=== PATIENT | male | born 1945 | race Caucasian/White ===

== ENCOUNTER 2021-09-19 12:13 | Outpatient (CLI) | payer MEDICARE, OTHER, SELFPAY ==
--- NOTE | ~2021-09-19 | XR_ITS ---
EXAMINATION: XR lumbar spine 2-3V DATE: 09/19/2021 12:49 INDICATION: Right paraspinal pain. Right flank pain. TECHNIQUE: 3 views of lumbar spine were obtained. COMPARISON: Lumbar spine radiographs 03/27/2007 FINDINGS: There is 17 degrees levoscoliosis of lumbar spine. There are chronic bilateral L5 pars defe cts. There is 10 mm anterolisthesis of L5 on S1. There is 4 mm retrolisthesis of L3 on L4 and L1 on L 2. There is mild chronic anterior wedging of T11 and T12 vertebral bodies. There is severely decrease d disc height at T12-L1 and L1-L2, moderately decreased disc height at L2-L3, severely decreased disc height at L3-L4, moderately decreased disc height at L4-L5, and severely decreased disc height at L5 -S1 with endplate remodeling. There is multilevel severe facet joint osteoarthritis. IMPRESSION: 1. Severe lumbar spondylosis. 2. Chronic bilateral L5 pars defects with grade 2 anterolisthesis of L5 on S1. 3. Lumbar dextroscoliosis. Reviewed, dictated and finalized at location A. T THROWER
--- NOTE | ~2021-09-19 | XR_ITS ---
XR thoracic spine 3V 09/19/2021 12:49 Indication: Back pain Procedure: 3 views of the thoracic spine Comparison: No prior studies for comparison. Findings: There is moderate-severe multilevel thoracic spondylosis. No fracture or traumatic malalign ment. No paraspinal soft tissue abnormality. Surrounding osseous structures within normal limits. Impression: 1: Moderate-severe thoracic spondylosis. Reviewed, dictated and finalized at location A. ATIC READER Impression: 1: Moderate-severe thoracic spondylosis.
== END 2021-09-19 12:14 | disposition home or self-care (01) ==
LOC: CHSIMG 12:20
PROVIDERS: PCP Internal Medicine; Visit Provider Internal Medicine
DX: M54.9 Dorsalgia, unspecified (principal); R10.9 Unspecified abdominal pain
CPT/HCPCS: 72072; 72100

== ENCOUNTER 2021-10-25 15:09 | Outpatient (CLI) | payer MEDICARE, SELFPAY ==
[2021-10-25 15:56] LABS: Influenza Control Valid (Valid)
[2021-10-25 15:57] LABS: SARS-CoV-2 Ag Positive (Negative)
== END 2021-10-25 15:10 | disposition home or self-care (01) ==
LOC: CHSLAB 15:14
PROVIDERS: PCP Internal Medicine; Visit Provider Internal Medicine
DX: U07.1 COVID-19 (principal); J06.9 Acute upper respiratory infection, unspecified
CPT/HCPCS: 87426; 87804; C9803

== ENCOUNTER 2023-01-04 13:28 | Outpatient (CLI) | payer MEDICARE, OTHER, SELFPAY ==
--- NOTE | ~2023-01-04 | CT_ITS ---
EXAMINATION: CT shoulder LT wo con DATE: 01/04/2023 13:43 INDICATION: Left shoulder pain. Preop. TECHNIQUE: Computed tomography (CT) of the left shoulder was performed without intravenous contrast. Automated exposure control and iterative reconstruction technique were employed. The dose-length prod uct was 521.10 mGy-cm. COMPARISON: Left shoulder radiographs 01/01/2023, chest CT 09/20/2016 FINDINGS: There is mild left cervical and left axillary lymphadenopathy. For example, a left axillary node measures 2.6 x 1.9 cm. There is superior subluxation of humeral head with respect to glenoid wi th narrowing of the subacromial space, consistent with rotator cuff tear. No fracture. There is advan emily left glenohumeral joint osteoarthritis including bone volume loss of the glenoid. There is severe acromioclavicular joint osteoarthritis. IMPRESSION: 1. Advanced left glenohumeral joint osteoarthritis. 2. Left rotator cuff tear. 3. Left cervical and axillary lymphadenopathy, worsened from 09/20/2016, consistent with chronic lymp hocytic leukemia. Reviewed, dictated and finalized at location A. IMPRESSION: 1. Advanced left glenohumeral joint osteoarthritis. 2. Left rotator cuff tear. 3. Left cervical and axillary lymphadenopathy, worsened from 09/20/2016, consis tent with chronic lymphocytic leukemia.
== END 2023-01-04 13:29 | disposition home or self-care (01) ==
PROVIDERS: PCP Internal Medicine; Visit Provider Orthopaedic Surgery
DX: M19.012 Primary osteoarthritis, left shoulder (principal); Z01.818 Encounter for other preprocedural examination; M75.102 Unspecified rotator cuff tear or rupture of left shoulder, not specified as traumatic
CPT/HCPCS: 73200

== ENCOUNTER 2023-01-16 07:36 | Outpatient (CLI) | payer MEDICARE, OTHER, SELFPAY ==
--- NOTE | 2023-01-16 08:20 | ECG_ITS ---
Measurements Intervals [place] Rate: 62 P: 22 RI: 236 QRS: -38 QRSD: 104 T: 9 QT: 416 QTc: 423 Interpretive Statements SINUS RHYTHM WITH FIRST DEGREE AV BLOCK LEFT AXIS DEVIATION VOLTAGE CRITERIA FOR LVH CANNOT RULE OUT ANTERIOR MYOCARDIAL INFARCTION, OF INDETERMINATE AGE ABNORMAL ECG NO PREVIOUS ECG AVAILABLE FOR COMPARISON Electronically Signed On 01-16-2023 16:20:47 CDT by Kalpesh Victoria M.D.
[2023-01-16 09:08] LABS: Basophils Absolute Auto 0.1 K/mm3 (0.0-0.1); Basophils Percent Auto 0.3 % (0.2-1.2); Eosinophils Absolute Auto 0.3 K/mm3 (0-0.3); Eosinophils Percent Auto 0.7 % (0-4.4); Hematocrit 40.3 % (42.0-52.0); Hemoglobin 12.7 g/dL (14.0-18.0); Immature Granulocyte Absolute 0.06 K/mm3 (0.00-0.031); Immature Granulocyte Percent A 0.1 % (0-0.5); Immature Platelet Fraction Pct 3.2 % (0.9-11.2); Lymphocytes Absolute Auto 36.56 K/mm3 (0.9-3.2); Lymphocytes Percent Auto 89.2 % (18.3-44.2); Mean Corpuscular HGB Conc 31.5 g/dl (32-36); Mean Corpuscular Hemoglobin 28.5 pg (26-34); Mean Corpuscular Volume 90.6 fl (80-100); Mean Platelet Volume 10.3 fl (7.4-10.4); Monocytes Absolute Auto 0.6 K/mm3 (0.1-0.6); Monocytes Percent Auto 1.5 % (2.6-8.5); Neutrophils Absolute Auto 3.4 K/mm3 (1.3-6.7); Neutrophils Percent Auto 8.2 % (45.5-73.1); Platelet Count Result 100 k/mm3 (150-375); Red Blood Count 4.45 M/mm3 (4.6-6.20); Red Cell Distribution Width 14.6 % (11.5-14.5)
[2023-01-16 09:17] LABS: Anion Gap 8 mmol/L (8-16); Blood Urea Nitrogen 28 mg/dL (9-20); Calcium 9.4 mg/dL (8.4-10.2); Carbon Dioxide 30 mmol/L (22-30); Chloride 104 mmol/L (98-107); Estimated Glomerular Filt Rate 59; Glucose 119 mg/dL (65-110); Potassium 3.4 mmol/L (3.4-5.0); Sodium 142 mmol/L (137-145)
[2023-01-16 09:30] LABS: Ovalocytes 1+ (NORMAL); Platelet Estimate Decreased (Adequate); Schistocytes None Seen (NORMAL); Smudge Cells MODERATE
== END 2023-01-16 07:37 | disposition home or self-care (01) ==
LOC: ANHSURGERY 07:40
PROVIDERS: Anesthesiology; PCP Internal Medicine; Visit Provider Orthopaedic Surgery
DX: M19.012 Primary osteoarthritis, left shoulder (principal); I10 Essential (primary) hypertension; Z79.899 Other long term (current) drug therapy; Z01.818 Encounter for other preprocedural examination; I45.10 Unspecified right bundle-branch block
CPT/HCPCS: 36415; 80048; 85025; 85055; 87081; 93005

== ENCOUNTER 2023-02-13 01:14 | Day surgery (SDC) | payer MEDICARE, OTHER, SELFPAY ==
--- NOTE | 2023-01-16 07:35 | PC.NURSE ---
PRE-OP INSTRUCTIONS, PLEASE READ CAREFULLY Report to the Outpatient Waiting Room, entrance under the green pavilion located off [facility], at time _0630_ on date _02/13/23_. Planned Procedure Time: _0830_. PACK A SMALL OVERNIGHT BAG AND LEAVE IN THE CAR Time changes happen often and if your time is changed the preop area will call you the afternoon before. - You and your visitor will be asked to self-screen and do not enter if you have any COVID symptoms. - A mask is optional within the hospital at this time. -VISITING HOURS 8AM-8PM Patients may have clear liquids (water, carbonated beverages, clear teas, apple juice) until 3 hours prior to surgery (0530 AM) with a maximum of 20 ounces. - No food from midnight until time of surgery Take the following medications with a SIP of water the morning of surgery: _TYLENOL IF NEEDED_ DO NOT STOP ANY OF YOUR OTHER PRESCRIPTION MEDICATIONS PRIOR TO SURGERY ?EXCEPT THE FOLLOWING Medications to discontinue per DR. REES - _ASPIRIN, BIOFLEX 7 DAYS PRIOR TO SURGERY, Date to take last dose 02/05/23_ Medications to discontinue per ANESTHESIA - _NEURIVA 3 DAYS PRIOR TO SURGERY, Date to take last dose 02/09/23_ Please no make-up, nail citizen of [place], hairspray, perfume, deodorant, or body powder the day of surgery. No jewelry (including any body piercings) or valuables the day of surgery, leave them at home. Please take a shower or bath the night before, or the morning of, surgery with an antibacterial soap. Wear comfortable, loose fitting clothing. - Jewelry must be removed prior to entering the operating room. Rings and piercings that are not removed may be cut off. - The hospital will not accept responsibility for valuables. - Please leave all valuables, including medications, at home the day of surgery. If you are going home after surgery, a licensed tractor trailer moving van driver must drive you home. - NO public transportation without another adult if you receive anesthesia. - We recommend that an adult stay with you for 24 hours following discharge. - We also recommend that you do not drive, make important decision, drink alcoholic beverages, or take any drugs that were not prescribed by your health care provider for at least 24 hours after your discharge time. Follow any additional instructions given to you from your surgeon. If you or anyone in your household have experienced Covid symptoms in the past week, please notify your surgeon or the nurse liaison at the phone number below for possible testing. Instructions given to _PATIENT_and asked if any additional questions and then verbalized understanding. Patient advised to call surgeon office or pre surgery nurse liaison [phone] if any additional questions.
[2023-01-16 08:02] VITALS: BP 156/84; PULSE 64; RESP 20; TEMP 36.8; O2SAT 97; BMI 29.9
--- NOTE | 2023-02-12 14:16 | WPDANESEPPF ---
Anes - Initial Pre Proc Eval Procedure: Operation Date: 02/13/23 08:30 Proposed Procedures p Left Reverse Total Shoulder Arthroplasty - Ted Zheng MD Date/Time: 02/12/23 14:16 Surgeon: Ted Zheng MD Pre Op Diagnosis: Prim O A Left Shoulder Patient Data Age: 78 Gender: M Height: 1.8 m Weight: 97.3 kg Last Vital Signs Temp 36.8 C 01/16/23 08:02 Pulse 64 01/16/23 08:02 Resp 20 01/16/23 08:02 BP 156/84 H 01/16/23 08:02 Pulse Ox 97 01/16/23 08:02 O2 Del Method Room Air 01/16/23 08:02 Allergies Allergy/AdvReac Type Severity Reaction Status Date / Time Penicillins Allergy Unknown Hives Verified 02/13/23 06:56 Home Medications Medication Instructions Recorded Confirmed Type cholecalciferol (vitamin D3) 25 25 mcg PO DAILY 01/01/23 02/06/23 History mcg/drop (1,000 unit/drop) oral drops finasteride 5 mg tablet 5 mg PO DAILY 01/01/23 02/06/23 History hydrochlorothiazide 25 mg tablet 25 mg PO DAILY 01/01/23 02/13/23 History losartan 100 mg tablet 100 mg PO DAILY 01/01/23 02/13/23 History nifedipine 30 mg tablet,extended 60 mg PO HS 01/01/23 02/06/23 History release rosuvastatin 20 mg tablet 20 mg PO DAILY 01/01/23 02/06/23 History vit 1 tablet PO DAILY 01/01/23 02/13/23 History [id number] 500 mg-50 mg-25 mg-40 mg tablet (Bioflex) acetaminophen 500 mg tablet 1,000 mg PO QID PRN Pain 01/16/23 02/06/23 History aspirin 325 mg tablet 325 mg PO HS 01/16/23 02/13/23 History coenzyme Q10 100 mg capsule 200 mg PO BID 01/16/23 02/06/23 History (CoQ-10) coffee extract 100 mg-phosphatidyl 1 cap PO DAILY 01/16/23 02/13/23 History serine 100 mg capsule (Neuriva Original) metoprolol succinate 25 mg 25 mg PO HS 01/16/23 02/13/23 History tablet,extended release 24 hr pantoprazole 40 mg tablet,delayed 40 mg PO DAILY 01/16/23 02/06/23 History release potassium chloride 10 mEq 10 meq PO DAILY 01/16/23 02/13/23 History tablet,extended release(part/cryst) (MaiklucilaMickey M) Patient hx anesthesia problems: none Family hx anesthesia problems: none Results Review: All pre-operative results and documents have been reviewed as part of the pre-operative evaluation. [facility] Past Medical History Medical History (Updated 02/12/23 @ 14:19 by Juan Pablo Flores MD) Aftercare following right shoulder joint replacement surgery Arthritis BPH (benign prostatic hyperplasia) Chronic GERD DVT (deep venous thrombosis) Hyperlipemia Hypertension Kidney stone Overweight (BMI 25.0-29.9) Surgical History Surgical History Presence of right artificial knee joint Family History Family History Mother Cerebrovascular accident Social History Social History Smoking packs per day: 1 Smoking cigarettes per day: 20.0 Years smoked: 4 Smoking pack-years: 4.00 Smoking status: Former smoker Tobacco type: cigarettes Second hand tobacco smoke exposure: No Smoking end date: 10/08/75 Alcohol intake: never Substance use: never Lack of Transportation: No Lack of Food: Never True Current Housing: I Have Housing Concerned About Future Housing: No Difficulty Paying Gas/Electric Bills: No Difficulty Paying for Meds: No Currently Unemployed: No Education: High School Diploma/GED Difficulty w/ Childcare or Family Care: No Living arrangements: with family Spiritual care concerns: No Anes - Eval Final PreProcedure Day of Procedure 02/12/23 14:16 Patient weight: obese Heart: regular rate and rhythm Lungs: clear to auscultation and normal air movement Airway: Mallampati scale class II Neurological: alert and oriented Last oral intake: >/= 8 hours ASA classification: III Emergent: no Anesthetic plan: proceed Anesthesia type and monitoring:
--- NOTE | 2023-02-12 14:21 | WPDANESPNB ---
Anes - Peripheral Nerve Block Date/Time: 02/12/23 14:21 I have discussed with the patient/family/POA the placement of a peripheral nerve block for post-operative pain management, including associated risks, benefits, complications, and side effects. Alternative methods of post-operative analgesia were detailed. Questions were solicited and answers provided to the satisfaction of the patient/family/POA. Time-Out: A pre-procedural Time-Out was completed immediately before starting the procedure and confirmed: Patient Identification, Site, Procedure, Patient Position and the Availability of Requisite Equipment. Clinical Indications: Acute post-operative pain management requested by the operative surgeon. Nerve Block Insertion Note Needle: 22 gauge, stimulating, insulated echogenic needle. Procedure start time:: 825 Procedure end time:: 830
[2023-02-13] VITALS (13 sets, daily range): BP systolic 139–167; BP diastolic 82–106; PULSE 64–94; RESP 10–20; TEMP 35.6–36.8; O2SAT 94–99; BMI 28.8
--- NOTE | ~2023-02-13 | XR_ITS ---
Left Shoulder Technique: AP and scapular Y views were obtained. Clinical History: Postoperative Findings: Patient is status post reverse total shoulder arthroplasty. No hardware complication is parvin dent. No acute fracture seen. Post operative changes noted in the surrounding soft tissues. Impression: Status post reverse left shoulder arthroplasty. Reviewed, dictated and finalized at [facility]. Impression: Status post reverse left shoulder arthroplasty.
[2023-02-13] MEDS: LACTATED RINGERS 1,000 ML 30 ML IV CONT ×2 (07:05→11:24)
--- NOTE | 2023-02-13 07:12 | WPDHPUPDATE1 ---
History and Physical Update Update Date/Time: 02/13/23 07:12 History and Physical has been reviewed, including an updated exam of the patient. There are NO changes in the patient's condition. Risks, benefits, and alternatives have been discussed and questions answered. Patient agrees to proceed with procedure.
[2023-02-13] MEDS: ACETAMINOPHEN 500 MG TABLET 1000 MG PO ×2 (07:15→18:26)
[2023-02-13] MEDS: TRANEXAMIC ACID 1,000MG/ISO100 1,000 MG/100 ML BAG 200 MG IVPB (07:59)
[2023-02-13] MEDS: ceFAZolin 2 GM/D5W 50 ML 2 GM/50 ML BAG IVPB ×2 (08:36→18:26)
[2023-02-13] MEDS: VANCOMYCIN HCL 1,000 MG VIAL 1000 MG TOPICAL (09:42)
[2023-02-13] MEDS: HYDROGEN PEROXIDE 3% SOLN(*SP) 473 ML BOTTLE 100 ML IRRIGATION (09:44)
--- NOTE | 2023-02-13 11:27 | W.PM.PROC2 ---
Procedure Note - Detailed Date of Procedure 02/13/23 Pre-op Diagnosis Prim O A Left Shoulder Post-op Diagnosis Same Procedure Performed Reverse total shoulder arthroplasty, left. Surgeon Ted Zheng MD Gynecologist Roseann Montanez PA-C Anesthesia General and Regional (Interscalene block.) Indications Advanced glenohumeral arthritis with significant contracture. Significant glenoid wear posterior and some superior. Findings Excellent bone quality. Significant contracture requiring capsule excision. Subscapularis repaired. 10 degree augment placed at the base plate at the 1:30 position. Description of Procedure The patient was given an interscalene block in the preoperative area. Preoperative antibiotics were given. The patient was transferred to the operating room and a general anesthetic was administered. The beach chair position was used at 45 degrees. All bony prominences were padded. The head was carefully stabilized on the Replaced by [facility] head kiln operator. A sterile prep and drape was performed in the usual manner with ChloraPrep. A longitudinal incision was created at the anterior shoulder just lateral to the deltopectoral interval. Hydrogen peroxide was placed on the incision and then rinsed after one minute. Careful dissection was performed to expose the interval and protect the cephalic vein. The vein was retracted medially. The upper border of the pectoralis was released. Anterior circumflex vessel branches were suture ligated. The biceps was tenodesed. A subscapularis tenotomy was performed. The inferior capsule was released, exposing the humeral head. Osteophytes were removed. Care was taken to stay on bone to protect the axillary nerve. The anatomic head cut was taken with the oscillating saw. The guide pin was placed, central drilling performed, and the broach trial inserted. The neck anteversion and inclination were carefully assessed. The cut protector was placed, and attention was turned to the glenoid. Retractors were placed. Releases were carried out for exposure. The subscapularis was mobilized, the inferior capsule and long head of triceps released, and the superior and middle glenohumeral ligaments released as well. Labral tissue was resected as needed. The sizing template was used to assess the baseplate position low on the glenoid. A guide pin was placed. Minimal reaming was used to accomplish a flat surface without violating the subchondral bone. Version was corrected according to preoperative templating. The boss was drilled, and the real component was impacted into position. Supplemental locking screws were placed centrally, superiorly, and inferiorly. The glenosphere was impacted into the taper. The proximal humerus was reamed for the inset component. The humeral components were trialed. The real humeral stem, tray, and insert were impacted into position. The shoulder was copiously irrigated periodically with pulsatile lavage. The shoulder was reduced and stability confirmed. 1 gram of Vancomycin powder was placed in the joint. The biceps tenodesis was incorporated with the pectoralis tendon repair. The deltopectoral space was reapproximated with number 1 Vicryl. The remaining tissue was closed with 0 Quill and 2-0 Quill running suture and steri-strips. A sterile silver occlusive dressing and shoulder immobilizer were placed. The patient was transferred to the recovery room. Physician catalog library assistant, Roseann Montanez PA-C, required for surgery; including patient positioning, draping, tissue retraction, maintaining instrument position, wound closure, and dressing placement. Implants Shoulder Innovations reverse TSA size 1 stem. +3 polyethylene insert. 10 degree augmented baseplate. 36+3 mm glenosphere. Estimated Blood Loss 100 Drains No Pathology None sent Complications No immediate complications Condition Stable Disposition PACU [facility] Billing Surgery - Charge Forward: Surgery Billing
[2023-02-13] MEDS: SENNA/DOCUSATE SODIUM TABLET 2 TAB PO (18:26)
--- NOTE | 2023-02-13 21:02 | ADMGEN ---
This patient, Wiliam Britt, was admitted to 3 [facility] Surg Room 315-02. Patient/family oriented to hospital policies and general routines including ID bracelet, bed and alarms, visiting hours, pain management, procedures, bathroom and other care routines, personal items, smoking policy, room service/diet, and visiting hours. Information on how to activate the Rapid Response Team has been discussed. Patient/Family are encouraged to report perceived risks to care and to ask questions if they do not understand what they are told or what they should do.
[2023-02-14 02:45] VITALS: BP 149/83; PULSE 66; RESP 18; TEMP 36.2; O2SAT 95
[2023-02-14 06:16] VITALS: PULSE 67
[2023-02-14] MEDS: ASPIRIN 325 MG TABLET PO (06:16)
[2023-02-14] MEDS: METOPROLOL SUCCINATE EXT REL 25 MG TABCR PO (06:16)
[2023-02-14] MEDS: ceFAZolin 2 GM/D5W 50 ML 2 GM/50 ML BAG IVPB ×2 (06:17→08:14)
[2023-02-14] MEDS: NIFEdipine 30 MG TAB.ER.24 60 MG PO (06:17)
[2023-02-14 06:45] VITALS: BP 142/85; PULSE 66; RESP 16; TEMP 36.2; O2SAT 95
[2023-02-14 07:01] LABS: Eosinophils Percent Auto 0.1 % (0-4.4); Hemoglobin 11.2 g/dL (14.0-18.0); Immature Granulocyte Absolute 0.11 K/mm3 (0.00-0.031); Immature Granulocyte Percent A 0.3 % (0-0.5); Immature Platelet Fraction Pct 3.1 % (0.9-11.2); Lymphocytes Absolute Auto 37.84 K/mm3 (0.9-3.2); Mean Corpuscular HGB Conc 31.1 g/dl (32-36); Mean Corpuscular Hemoglobin 27.7 pg (26-34); Mean Corpuscular Volume 89.1 fl (80-100); Mean Platelet Volume 10.3 fl (7.4-10.4); Monocytes Absolute Auto 0.8 K/mm3 (0.1-0.6); Monocytes Percent Auto 1.9 % (2.6-8.5); Neutrophils Absolute Auto 4.9 K/mm3 (1.3-6.7); Neutrophils Percent Auto 11.2 % (45.5-73.1); Platelet Count Result 91 k/mm3 (150-375); Red Blood Count 4.04 M/mm3 (4.6-6.20); Red Cell Distribution Width 15.1 % (11.5-14.5); White Blood Count 43.8 K/mm3 (4.5-10.0)
[2023-02-14 07:12] LABS: Anion Gap 9 mmol/L (8-16); Blood Urea Nitrogen 32 mg/dL (9-20); Calcium 8.8 mg/dL (8.4-10.2); Carbon Dioxide 27 mmol/L (22-30); Chloride 100 mmol/L (98-107); Estimated CRCL calculation 46 ml/min; Estimated Glomerular Filt Rate 54; Glucose 130 mg/dL (65-110); Potassium 3.6 mmol/L (3.4-5.0); Sodium 136 mmol/L (137-145)
[2023-02-14] MEDS: oxyCODONE HCL (*CRX) 5 MG TAB IR PO (08:14)
[2023-02-14] MEDS: ROSUVASTATIN 10 MG TABLET 20 MG PO (08:14)
[2023-02-14] MEDS: PANTOPRAZOLE 40 MG TABLET PO (08:14)
[2023-02-14] MEDS: SENNA/DOCUSATE SODIUM TABLET 2 TAB PO (08:14)
[2023-02-14] MEDS: LOSARTAN POTASSIUM 100 MG TABLET PO (08:17)
[2023-02-14] MEDS: hydroCHLOROthiazide 25 MG TABLET PO (08:17)
[2023-02-14] MEDS: FINASTERIDE 5 MG TABLET PO (08:17)
[2023-02-14] MEDS: polyethylene glycoL 3350 17 GM POWD.PACK PO (08:17)
[2023-02-14 09:21] LABS: Platelet Estimate Decreased (Adequate)
[2023-02-14 09:22] LABS: Ovalocytes 1+ (NORMAL); Schistocytes None Seen (NORMAL); Smudge Cells MANY
--- NOTE | 2023-02-14 10:12 | PM.DS ---
DS: Admitting Diagnosis Discharge Date 02/14/23 Admitting Diagnosis Glenohumeral joint arthritis. DS: Discharge Diagnosis Discharge Diagnosis (1) Status post reverse total arthroplasty of left shoulder: Code(s): Z96.612 - Presence of left artificial shoulder joint Status: Acute Plan Postop day 1: Left reverse total shoulder arthroplasty. Patient tolerated procedure well. No complications. Pain manageable with pain medication. No numbness or tingling. We had a lengthy discussion regarding postoperative wound care, limitations, expectations, and exercises. Patient shows good understanding. He has had initial physical therapy and is tolerating it well. DVT prophylaxis: 81 mg baby aspirin b.i.d. for 14 days. Pain medication: Percocet. Patient has followup appointment with Dr. Zheng in 3 weeks. DS: Summary Hospital Course Hospital Course: He has had initial PT/OT and is tolerating it well. Status at Discharge Functional status at discharge: independent ambulation Overall status at discharge: patient is progressing back to baseline Time Spent with Patient Time attestation: Total time spent providing and/or coordinating discharge services: Exam Narrative: Overweight 78 y/o male. Resting comfortably in bed. Wearing sling. Dressing dry and intact with no drainage. Moderate swelling. Moderate ecchymosis. No erythema. No hematoma. Range of motion limited due to pain. Calf nontender. Neurologic status intact. No varicosities. Distal pulses palpable. DS: Data Data Completed and Pending Labs on day of discharge: Labs from last 24 hours 02/14/23 06:33 WBC 43.8 H RBC 4.04 L Hgb 11.2 L Hct 36.0 L MCV 89.1 MCH 27.7 MCHC 31.1 L RDW 15.1 H Plt Count 91 L MPV 10.3 Immature Gran % (Auto) 0.3 Neut % (Auto) 11.2 L Lymph % (Auto) 86.5 H [place] % (Auto) 1.9 L Eos % (Auto) 0.1 Baso % (Auto) 0.0 L Lymph # (Auto) 37.84 H [place] # (Auto) 0.8 H Eos # (Auto) 0.0 Baso # (Auto) 0.0 Abs Immat Gran (auto) 0.11 H Absolute Neuts (auto) 4.9 Absolute Nucleated RBC 0.0 Nucleated RBC % 0.0 Smudge Cells Many Platelet Estimate Decreased % Immature Plt Fraction 3.1 Ovalocytes 1+ Schistocytes None seen Sodium 136 L Potassium 3.6 Chloride 100 Carbon Dioxide 27 Anion Gap 9 BUN 32 H Creatinine 1.30 Estim Creat Clear Calc 46 Estimated GFR 54 L Glucose 130 H Calcium 8.8 Discharge Plan Discharge Patient Disposition: Home, Self-Care Discharge Instructions: See green instruction sheets. Stand Alone Forms: General Discharge Instructions Follow-up/Referrals: Roseann Montanez PA [Physician Air Tube Releaser] - Discharge Medications: New aspirin 81 mg tablet,delayed release (DR/EC) 81 mg PO BID 14 Days Qty: 28 0RF oxycodone-acetaminophen 5-325 mg tablet 1 - 2 tablet PO Q4-6H MDD 6 PRN (Reason: pain) Qty: 30 0RF Continued hydrochlorothiazide 25 mg tablet 25 mg PO DAILY losartan 100 mg tablet 100 mg PO DAILY finasteride 5 mg tablet 5 mg PO DAILY nifedipine 30 mg tablet extended release 60 mg PO HS rosuvastatin 20 mg tablet 20 mg PO DAILY cholecalciferol (vitamin D3) 25 mcg/drop ( 1,000 unit/drop) drops 25 mcg PO DAILY Bioflex [id number] mg tablet 1 tablet PO DAILY aspirin 325 mg Tablet 325 mg PO HS pantoprazole 40 mg tablet,delayed release (DR/EC) 40 mg PO DAILY coenzyme Q10 [CoQ-10] 100 mg Capsule 200 mg PO BID potassium chloride [Klor-Con M10] 10 mEq Tablet,Er Particles/Crystals 10 meq PO DAILY Neuriva Original 100-100 mg Capsule 1 cap PO DAILY metoprolol succinate 25 mg tablet extended release 24 hr 25 mg PO HS acetaminophen 500 mg Tablet 1,000 mg PO QID PRN (Reason: Pain)
--- NOTE | 2023-02-14 10:29 | WPDANESPN ---
Anes - Prog Note Post-Op Date/Time: 02/14/23 10:29 Cardiovascular status: normal Respiratory status: normal Airway patency: baseline Mental status: baseline Post-Op hydration status: normal Vital Signs: Last Vital Signs Temp 36.2 C L 02/14/23 06:45 Pulse 66 02/14/23 06:45 Resp 16 02/14/23 06:45 BP 142/85 H 02/14/23 06:45 Pulse Ox 95 02/14/23 06:45 O2 Del Method Room Air 02/14/23 08:22 O2 Flow Rate 8 02/13/23 11:40 Pain Score (VAS): 3. up moving around his room. states he feels good. I/O: Intake & Output 02/13/23 02/14/23 02/14/23 23:59 07:59 15:59 Intake Total 290 250 240 Balance 290 250 240 Laboratory Tests 02/14/23 06:33 02/14/23 06:33 02/14/23 06:33 WBC 43.8 H RBC 4.04 L Hgb 11.2 L Hct 36.0 L MCV 89.1 MCH 27.7 MCHC 31.1 L RDW 15.1 H Plt Count 91 L MPV 10.3 Immature Gran % (Auto) 0.3 Neut % (Auto) 11.2 L Lymph % (Auto) 86.5 H [place] % (Auto) 1.9 L Eos % (Auto) 0.1 Baso % (Auto) 0.0 L Lymph # (Auto) 37.84 H [place] # (Auto) 0.8 H Eos # (Auto) 0.0 Baso # (Auto) 0.0 Abs Immat Gran (auto) 0.11 H Absolute Neuts (auto) 4.9 Absolute Nucleated RBC 0.0 Nucleated RBC % 0.0 Smudge Cells Many Platelet Estimate Decreased % Immature Plt Fraction 3.1 Ovalocytes 1+ Schistocytes None seen Sodium 136 L Potassium 3.6 Chloride 100 Carbon Dioxide 27 Anion Gap 9 BUN 32 H Creatinine 1.30 Estim Creat Clear Calc 46 Estimated GFR 54 L Glucose 130 H Calcium 8.8 Post-procedural complaints: none Patient Feedback: Patient satisfied with anesthetic care.
[2023-02-14 11:19] LABS: Lymphocytes Percent Auto 86.5 % (18.3-44.2)
== END 2023-02-14 12:15 | disposition home or self-care (01) ==
LOC: ANHSURGERY 08:23 → ANH3MEDSUR 13:04
PROVIDERS: Physician Assistant Surgical; PCP Internal Medicine; Visit Provider Orthopaedic Surgery
PROC: (CPT 23472; principal; 2023-02-13 08:30)
DX: M19.012 Primary osteoarthritis, left shoulder (principal); G89.18 Other acute postprocedural pain; I10 Essential (primary) hypertension; E78.5 Hyperlipidemia, unspecified; K21.9 Gastro-esophageal reflux disease without esophagitis; N40.0 Benign prostatic hyperplasia without lower urinary tract symptoms; Z86.718 Personal history of other venous thrombosis and embolism; Z87.891 Personal history of nicotine dependence; E66.9 Obesity, unspecified; Z68.28 Body mass index [BMI] 28.0-28.9, adult
CPT/HCPCS: 23472; 64415; 36415; 73030; 80048; 85025; 85055; 86850; 86900; 86901; 97110; 97161; 97165; 97530; 97535; A4565; A9270; C1776; J0171; J0690; J1100; J1170; J1885; J2250; J2270; J2405; J2704; J2795; J3010; J3370; J7120

== ENCOUNTER 2023-03-14 09:44 | Outpatient (RCR) | payer MEDICARE, OTHER, SELFPAY ==
--- NOTE | 2023-03-14 10:37 | PTOPEVAL1 ---
Assessment and note entered by JT File, PT Evaluation Information Assessment Status Evaluation Diagnosis s/p L reverse TSA Onset 02/13/23 Subjective Information patient reports he had a reverse total shoulder replacement (TSA) on 02/13/23. he reports prior to surgery he had injured it many years ago. he had several surgeries on cartilage and the RTC in the past. he reports eventually it was too worn out and required replacements. he reports he would like to get back to getting dressed independent, and work on cars in his garage. he reports he is not aware of any restrictions. Reported Pain Level Pain Score 0: Self Report Assessment PT Clinical Summary mr. adams is a 78 yo man who presents to skilled PT services 4 weeks s/p L reverse TSA. he presents with mild pain, and deficits in rom, strength, and functional mobility. he would beenfit from continued skilled PT to improve his objective/ functional deficits and progress towards a return to his prior level functional activity performance and quality of life. Plan of Care Interventions Electrical Stimulation,Hot Pack/Cold Pack,Manual Therapy,Neuro Re-education,Patient/Caregiver Educati,Therapeutic Activities,Therapeutic Exercise Treatment Frequency and 3x weekly for 12 visits Duration These treatments will address the objective and functional deficits as defined above. The patient will be advanced safely and appropriately in order for the patient to progress towards his/her prior level of function. Additional exercises will be introduced and as well as a comprehensive home exercise program upon discharge, if needed, ?to ensure carryover of functional gains achieved in the clinic. This treatment plan has been reviewed and agreement upon by the patient.
--- NOTE | 2023-03-14 10:37 | OPREHPOC ---
Outpatient Therapy Plan of Care This is a Multidisciplinary Plan of Care that may contain components documented by all disciplines (PT, OT, and ST.) PT Problem 1 PT Problem #1 Knowledge Deficit PT Goal 1 Goal 1. independent and compliant with HEP to improve rom and tolerance for continued skilled PT Target Visit 6 PT Problem 2 PT Problem #2 Impaired Range of Motion PT Goal 1 Goal 1. improve arom flexion of the L shoulder to 135 degrees or better 2. improve arom abduction of the L shoulder to 100 degrees or better 3. improve arom L shoulder ER to 75 degrees or better in 90/90 position 4. improve arom L shoulder IR to 60 degrees or better in 90/90 position Target Visit 12 PT Problem 3 PT Problem #3 Impaired Strength PT Goal 1 Goal 1. 4+/5 or better L shoulder strength 2. 5/5 L elbow strength Target Visit 12 PT Problem 4 PT Problem #4 Impaired Functional Mobil PT Goal 1 Goal 1. quick dash to display less than 10% funcitonal deficits 2. patient to achieve functional L hand reach to the upper lumbar spine 3. patient to achieve functional L hand reach to the shirt collar with shoulder fleixon/er and no head flexion compensation 4. patient to lift 5lb weight from waist to shoulder height Target Visit 12
--- NOTE | 2023-04-06 09:55 | PTOPPROG ---
Assessment and note entered by Ann Baldwin, PT Evaluation Information Assessment Status Progress Diagnosis s/p L reverse TSA Onset 02/13/23 Subjective Information Wiliam reports his left shoulder is doing well. He has not had any pain with it since surgery and feels he is progressing well. He does experience tightness in the left shoulder and notes his strength is still limited especially with lifting overhead. He saw his surgeon on 04/04/23 and he was pleased with his progress and did not want to see him again until his 1 year follow up. Assessment PT Clinical Summary Wiliam Britt is 7.5 weeks s/p L reverse TSA. He is reporting no pain in the left shoulder but does continue to note weakness. He objectively demonstrates progressions in left shoulder AA/A/ PROM and strength but he remains limited in both aspects. He is unable to lift very much weight leading to limitations with household activities and recreational activities. He will continue to benefit from skilled PT to further address ROM and strength deficits and return him to his PLOF. Plan of Care Interventions Hot Pack/Cold Pack,Manual Therapy,Neuro Re- education,Patient/Caregiver Educati,Therapeutic Activities,Therapeutic Exercise PT Services Indicated Yes Treatment Frequency and 2 times a week for 8 visits Duration These treatments will address the objective and functional deficits as defined above. The patient will be advanced safely and appropriately in order for the patient to progress towards his/her prior level of function. Additional exercises will be introduced and as well as a comprehensive home exercise program upon discharge, if needed, ?to ensure carryover of functional gains achieved in the clinic. This treatment plan has been reviewed and agreement upon by the patient.
--- NOTE | 2023-05-02 08:05 | PTOPDC ---
Assessment and note entered by JT File, PT Evaluation Information Assessment Status Discharge Diagnosis s/p L reverse TSA Onset 02/13/23 Subjective Information Patient reports that he feels he has gained much more functional ability with his L shoulder since starting physical therapy. He notes he is able to do most activities in his home and shop. He reports some difficulty with reaching far overhead and shoudler endurance. Reported Pain Level Pain Score 0: Self Report Assessment PT Clinical Summary Mr. Britt has progressed throughout physical therapy treatment to gain ROM and strength in his L shoulder. His score on the Quick DASH has decreased from 20% to 2% at this date, demonstrating improvement in functional activities . He has also achieved and progressed towards all longterm goals. At this point in time, patient is discharged from skilled physical therapy with independent HEP. Plan of Care PT Services Indicated No
--- NOTE | 2023-05-02 08:06 | OPREHPOC ---
Outpatient Therapy Plan of Care This is a Multidisciplinary Plan of Care that may contain components documented by all disciplines (PT, OT, and ST.) PT Problem 1 PT Problem #1 Knowledge Deficit PT Goal 1 Goal 1. independent and compliant with HEP to improve rom and tolerance for continued skilled PT Target Visit 6 Progress Met PT Problem 2 PT Problem #2 Impaired Range of Motion PT Goal 1 Goal 1. improve arom flexion of the L shoulder to 135 degrees or better 2. improve arom abduction of the L shoulder to 100 degrees or better 3. improve arom L shoulder ER to 75 degrees or better in 90/90 position 4. improve arom L shoulder IR to 60 degrees or better in 90/90 position Target Visit 12 Progress Partially Met PT Problem 3 PT Problem #3 Impaired Strength PT Goal 1 Goal 1. 4+/5 or better L shoulder strength 2. 5/5 L elbow strength Target Visit 12 Progress Partially Met PT Problem 4 PT Problem #4 Impaired Functional Mobil PT Goal 1 Goal 1. quick dash to display less than 10% funcitonal deficits 2. patient to achieve functional L hand reach to the upper lumbar spine 3. patient to achieve functional L hand reach to the shirt collar with shoulder fleixon/er and no head flexion compensation 4. patient to lift 5lb weight from waist to shoulder height Target Visit 12 Progress Partially Met
== END 2023-05-02 20:00 | disposition home or self-care (01) ==
LOC: CHSPT 09:44
PROVIDERS: Visit Provider Orthopaedic Surgery
DX: Z47.1 Aftercare following joint replacement surgery (principal); Z96.612 Presence of left artificial shoulder joint
CPT/HCPCS: 97014; 97110; 97150; 97161; G0283

== ENCOUNTER 2023-11-01 01:03 | Day surgery (SDC) | payer MEDICARE, OTHER, SELFPAY ==
[2023-10-19 11:41] VITALS: BMI 27.6
--- NOTE | 2023-10-30 10:57 | SUR.PREOP ---
Patient called regarding upcoming procedure. Reviewed preop instructions, appointment times, and procedure prep.
[2023-11-01] MEDS: LACTATED RINGERS 1,000 ML 150 ML IV CONT (09:27)
--- NOTE | 2023-11-01 10:12 | SUR.PREOP ---
Pt informed that Dr. Tidwell is running behind schedule.
--- NOTE | 2023-11-01 10:47 | WPDANESEPPF ---
Anes - Initial Pre Proc Eval Procedure: Operation Date: 11/01/23 10:00 Proposed Procedures p Screening Colonoscopy - Markos Tidwell DO Date/Time: 11/01/23 10:48 Surgeon: Markos Tidwell DO Pre Op Diagnosis: + cologuard Patient Data Age: 78 Gender: M Height: 1.88 m Weight: 94.9 kg Allergies Allergy/AdvReac Type Severity Reaction Status Date / Time Penicillins Allergy Unknown Hives Verified 11/01/23 09:14 Home Medications Medication Instructions Recorded Confirmed Type cholecalciferol (vitamin D3) 25 25 mcg PO DAILY 01/01/23 10/19/23 History mcg/drop (1,000 unit/drop) oral drops finasteride 5 mg tablet 5 mg PO DAILY 01/01/23 10/19/23 History hydrochlorothiazide 25 mg tablet 25 mg PO DAILY 01/01/23 10/19/23 History losartan 100 mg tablet 100 mg PO DAILY 01/01/23 10/19/23 History nifedipine 30 mg tablet,extended 60 mg PO HS 01/01/23 10/19/23 History release rosuvastatin 20 mg tablet 20 mg PO DAILY 01/01/23 10/19/23 History vit 1 tablet PO DAILY 01/01/23 10/19/23 History C-[id number] 500 mg-50 mg-25 mg-40 mg tablet (Bioflex) acetaminophen 500 mg tablet 1,000 mg PO QID PRN Pain 01/16/23 10/19/23 History aspirin 325 mg tablet 325 mg PO HS 01/16/23 10/19/23 History coenzyme Q10 100 mg capsule 200 mg PO BID 01/16/23 10/19/23 History (CoQ-10) coffee extract 100 mg-phosphatidyl 1 cap PO DAILY 01/16/23 10/19/23 History serine 100 mg capsule (Neuriva Original) metoprolol succinate 25 mg 25 mg PO HS 01/16/23 10/19/23 History tablet,extended release 24 hr pantoprazole 40 mg tablet,delayed 40 mg PO DAILY 01/16/23 10/19/23 History release potassium chloride 10 mEq 10 meq PO DAILY 01/16/23 10/19/23 History tablet,extended release(part/cryst) (Klor-Con M) aspirin 81 mg tablet,delayed 81 mg PO BID 14 days #28 tabs 02/13/23 10/19/23 Rx release Patient hx anesthesia problems: none Family hx anesthesia problems: none Results Review: All pre-operative results and documents have been reviewed as part of the pre-operative evaluation. 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 Family History Family History Mother Cerebrovascular accident Social History Social History Smoking packs per day: 1 Smoking cigarettes per day: 20.0 Years smoked: 4 Smoking pack-years: 4.00 Smoking status: Former smoker Second hand tobacco smoke exposure: No Alcohol intake: current Drinks per week: 1 Substance use: never Lack of Transportation: No Lack of Food: Never True Current Housing: I Have Housing Concerned About Future Housing: No Difficulty Paying Gas/Electric Bills: No Difficulty Paying for Meds: No Currently Unemployed: No Education: High School Diploma/GED Difficulty w/ Childcare or Family Care: No Living arrangements: with family Spiritual care concerns: No Anes - Eval Final PreProcedure Day of Procedure 11/01/23 10:48 Patient weight: normal Heart: regular rate and rhythm Lungs: clear to auscultation Airway: Mallampati scale class II Neurological: alert and oriented Last oral intake: >/= 8 hours ASA classification: III Emergent: no Anesthetic plan: proceed Anesthesia type and monitoring: general GIVS and standard monitoring Results Review: All pre-operative results and documents have been reviewed as part of the p
--- NOTE | 2023-11-01 11:16 | PM.IMHP ---
H&P: HPI History of Present Illness Date/Time: 11/01/23 11:16 Chief Complaint: positive Cologuard Narrative: this is a 78-year-old man who presents for colonoscopy. He recently had a Cologuard test which was positive. He last had a colonoscopy about 15 years ago. He denies any hematochezia or melena. Denies family history of colon cancer. Review of Systems Review of Systems: All systems reviewed & are unremarkable except as noted in HPI and below Constitutional: Constitutional: Denies chills, Denies fever(s), Denies headache(s) and Denies weight loss Eyes: Eyes: Denies change in vision ENT: Denies dizziness, Denies headache(s), Denies neck mass and Denies throat swelling Cardiovascular: Cardiovascular: Denies chest pain, Denies lightheadedness and Denies dyspnea Respiratory: Respiratory: Denies cough, Denies dyspnea and Denies wheezing Gastrointestinal: Gastrointestinal: Denies abdominal pain, Denies change in bowel habits, Denies nausea and Denies vomiting Genitourinary: Genitourinary: Denies hematuria and Denies dysuria Musculoskeletal: Musculoskeletal: Reports as per HPI Integumentary/Breasts: Skin/Breast: Reports as per HPI Neurologic: Denies dizziness and Denies headache(s) Allergic/Immunologic: Allergic/Immunologic: Denies throat swelling and Denies wheezing PMF Past Medical History Medical History Aftercare following right shoulder joint replacement surgery Arthritis BPH (benign prostatic hyperplasia) Chronic GERD DVT (deep venous thrombosis) Hyperlipemia Hypertension Kidney stone Overweight (BMI 25.0-29.9) Surgical History Surgical History History of reverse total replacement of left shoulder joint (~02/13/23) Presence of right artificial knee joint Family History Family History Mother Cerebrovascular accident Social History Social History Smoking packs per day: 1 Smoking cigarettes per day: 20.0 Years smoked: 4 Smoking pack-years: 4.00 Smoking status: Former smoker Second hand tobacco smoke exposure: No Alcohol intake: current Drinks per week: 1 Substance use: never Lack of Transportation: No Lack of Food: Never True Current Housing: I Have Housing Concerned About Future Housing: No Difficulty Paying Gas/Electric Bills: No Difficulty Paying for Meds: No Currently Unemployed: No Education: High School Diploma/GED Difficulty w/ Childcare or Family Care: No Living arrangements: with family Spiritual care concerns: No Meds Home Medications and Allergies Home Medications Medication Instructions Recorded Confirmed Type cholecalciferol (vitamin D3) 25 25 mcg PO DAILY 01/01/23 10/19/23 History mcg/drop (1,000 unit/drop) oral drops finasteride 5 mg tablet 5 mg PO DAILY 01/01/23 10/19/23 History hydrochlorothiazide 25 mg tablet 25 mg PO DAILY 01/01/23 10/19/23 History losartan 100 mg tablet 100 mg PO DAILY 01/01/23 10/19/23 History nifedipine 30 mg tablet,extended 60 mg PO HS 01/01/23 10/19/23 History release rosuvastatin 20 mg tablet 20 mg PO DAILY 01/01/23 10/19/23 History vit 1 tablet PO DAILY 01/01/23 10/19/23 History D-[id number]-[id number] 500 mg-50 mg-25 mg-40 mg tablet (Bioflex) acetaminophen 500 mg tablet 1,000 mg PO QID PRN Pain 01/16/23 10/19/23 History aspirin 325 mg tablet 325 mg PO HS 01/16/23 10/19/23 History coenzyme Q10 100 mg capsule 200 mg PO BID 01/16/23 10/19/23 History (CoQ-10) coffee extract 100 mg-phosphatidyl 1 cap PO DAILY 01/16/23 10/19/23 History serine 100 mg capsule (Neuriva Original) metoprolol succinate 25 mg 25 mg PO HS 01/16/23 10/19/23 History tablet,extended release 24 hr pantoprazole 40 mg tablet,delayed 40 mg PO DAILY 01/16/23 10/19/23 His
[2023-11-01 11:53] VITALS: BP 109/75; PULSE 66; RESP 17; O2SAT 98
[2023-11-01 12:03] VITALS: BP 118/75; PULSE 62; RESP 14; O2SAT 97
[2023-11-01 12:13] VITALS: BP 118/75; PULSE 62; RESP 21; O2SAT 98
== END 2023-11-01 12:22 | disposition home or self-care (01) ==
PROVIDERS: PCP Internal Medicine; Visit Provider Surgery
PROC: 0DJD8ZZ Inspection of Lower Intestinal Tract, Via Natural or Artificial Opening Endoscopic (ICD-10-PCS; CPT 45378; principal; 2023-11-01 10:00)
DX: R19.5 Other fecal abnormalities (principal); D12.4 Benign neoplasm of descending colon; D12.2 Benign neoplasm of ascending colon; K64.8 Other hemorrhoids; K57.30 Diverticulosis of large intestine without perforation or abscess without bleeding; I10 Essential (primary) hypertension; E78.5 Hyperlipidemia, unspecified; N40.0 Benign prostatic hyperplasia without lower urinary tract symptoms; K21.9 Gastro-esophageal reflux disease without esophagitis; Z98.890 Other specified postprocedural states; Z82.49 Family history of ischemic heart disease and other diseases of the circulatory system; Z87.891 Personal history of nicotine dependence; Z86.718 Personal history of other venous thrombosis and embolism; Z79.82 Long term (current) use of aspirin
CPT/HCPCS: 45385; 88305; J2001; J2704; J7120

== ENCOUNTER 2024-02-14 07:26 | Outpatient (CLI) | payer MEDICARE, OTHER, SELFPAY ==
--- NOTE | ~2024-02-14 | XR_ITS ---
Left Shoulder Technique: AP and scapular Y views were obtained. Clinical History: Arthroplasty COMPARISON: 04/04/2023 Findings: No fracture or dislocation is seen. Stable left shoulder arthroplasty hardware.. Soft tissu es are unremarkable. Impression: No acute abnormality. Stable left shoulder arthroplasty. Reviewed, dictated and finalized at location . Impression: No acute abnormality. Stable left shoulder arthroplasty.
== END 2024-02-14 07:27 | disposition home or self-care (01) ==
LOC: ANHIMG 07:29
PROVIDERS: PCP Internal Medicine; Visit Provider Physician Assistant Surgical
DX: Z96.612 Presence of left artificial shoulder joint (principal)
CPT/HCPCS: 73030

== ENCOUNTER 2024-02-22 20:08 | Emergency (ER) | payer MEDICARE, OTHER, SELFPAY ==
[2024-02-22] VITALS (7 sets, daily range): BP systolic 162–173; BP diastolic 84–96; PULSE 63–71; RESP 16–24; TEMP 36.6; O2SAT 95–98
--- NOTE | ~2024-02-22 | CT_ITS ---
EXAMINATION: CTA chest PE protocol DATE: 02/22/2024 21:37 INDICATION: Left chest pain. TECHNIQUE: Computed tomography angiography (CTA) of the chest was performed with 100 mL Omnipaque-350 intravenous contrast timed to evaluate the pulmonary arteries. Coronal maximum intensity projection 3D-reconstructions were created by the technologist. Automated exposure control and iterative reconst ruction technique were employed. The dose-length product was 611.52 mGy-cm. COMPARISON: None. FINDINGS: The lungs demonstrate mild atelectasis. There is smooth septal thickening in the lungs, con sistent mild pulmonary edema. No pleural effusion. Cardiomegaly is present. There is a trace pericard ial effusion. There is no pulmonary embolus. There is a small sliding hiatal hernia. There is moderat e splenomegaly. There is mild mediastinal lymphadenopathy. There is mild bilateral axillary lymphaden opathy. There are bilateral shoulder arthroplasties. There is severe thoracic spondylosis. IMPRESSION: 1. No pulmonary embolus. Sensitivity is severely decreased in the inferior lungs by motion artifact. 2. Mild pulmonary edema. 3. Mild chest lymphadenopathy, which may be reactive lymphadenopathy or lymphoma. Ultrasound-guided c ore biopsy of a right axillary lymph node is recommended. 4. Splenomegaly. Reviewed, dictated and finalized at location E. IMPRESSION: 1. No pulmonary embolus. Sensitivity is severely decreased in the inferior lung s by motion artifact. 2. Mild pulmonary edema. 3. Mild chest lymphadenopathy, which may be reactive lymphadenopathy or lymphom a. Ultrasound-guided core biopsy of a right axillary lymph node is recommended. 4. Splenomegaly.
--- NOTE | ~2024-02-22 | XR_ITS ---
EXAMINATION: XR chest 1V portable DATE: 02/22/2024 20:23 INDICATION: Left chest pain. TECHNIQUE: A single frontal view of the chest was obtained. COMPARISON: None. FINDINGS: There is no pneumonia, pleural effusion, or pneumothorax. The heart size is normal. There a re bilateral shoulder arthroplasties. IMPRESSION: 1. No acute cardiopulmonary disease. Reviewed, dictated and finalized at location E.
--- NOTE | 2024-02-22 20:10 | ED.CHESTPAIN ---
HPI - Chest Pain General Chief Complaint: Chest Pain Stated Complaint: Chest Pain Time Seen by Provider: 02/22/24 20:09 Source: patient Mode of arrival: ambulatory Limitations: no limitations History of Present Illness HPI narrative: 79-year-old male, ex-smoker with a history of hypertension, dyslipidemia, BPH, DVT many years ago, CLL not on any treatment presents to the ER with -- substernal chest pain while he was mowing his yard. The patient stopped mowing his yd and went into the house and sat down. In 10 minutes the pain resolved. The pain was noted to be in substernal region without any radiation. The pain was rated as 4/10. No shortness of breath. No lightheadedness. No nausea / vomiting. No diaphoresis. His gave him 325 mg of aspirin. Currently the patient is pain-free. MD complaint: chest pain Onset (ago): minute(s) ( 45 minutes ago) Timing of current episode: constant Prior episodes: No Onset: during exertion Pain location: substernal Pain radiation: none Severity: mild Pain scale (0-10): 4 Quality: aching Relieving factors: nothing and rest Exacerbating factors: nothing Treatment prior to arrival: aspirin Risk Factors Coronary artery disease risk factors: smoking history, hyperlipidemia and hypertension Thoracic aortic dissection risk factors: longstanding hypertension Pulmonary embolism risk factors: history of deep vein thrombosis Related Data Home Medications Medication Instructions Recorded Confirmed cholecalciferol (vitamin D3) 25 25 mcg PO DAILY 01/01/23 02/22/24 mcg/drop (1,000 unit/drop) oral drops finasteride 5 mg tablet 5 mg PO DAILY 01/01/23 02/22/24 hydrochlorothiazide 25 mg tablet 25 mg PO DAILY 01/01/23 02/22/24 losartan 100 mg tablet 100 mg PO DAILY 01/01/23 02/22/24 nifedipine 30 mg tablet,extended 60 mg PO HS 01/01/23 02/22/24 release rosuvastatin 20 mg tablet 20 mg PO DAILY 01/01/23 02/22/24 vit 1 tablet PO DAILY 01/01/23 02/22/24 B-pfimqaq-abgerzevg-[id number] 500 mg-50 mg-25 mg-40 mg tablet (Bioflex) acetaminophen 500 mg tablet 1,000 mg PO QID PRN Pain 01/16/23 02/22/24 aspirin 325 mg tablet 325 mg PO HS 01/16/23 02/22/24 coenzyme Q10 100 mg capsule 200 mg PO BID 01/16/23 02/22/24 (CoQ-10) coffee extract 100 mg-phosphatidyl 1 cap PO DAILY 01/16/23 02/22/24 serine 100 mg capsule (Neuriva Original) metoprolol succinate 25 mg 25 mg PO HS 01/16/23 02/22/24 tablet,extended release 24 hr pantoprazole 40 mg tablet,delayed 40 mg PO DAILY 01/16/23 02/22/24 release potassium chloride 10 mEq 10 meq PO DAILY 01/16/23 02/22/24 tablet,extended release(part/cryst) (Klor-Con M) Allergies Allergy/AdvReac Type Severity Reaction Status Date / Time Penicillins Allergy Unknown Hives Verified 02/14/24 08:06 Review of Systems Review of Systems: All systems reviewed & are unremarkable except as noted in HPI and below Constitutional: Constitutional: Reports as per HPI and Reports no additional constitutional complaints Eyes: Eyes: Reports as per HPI and Reports no additional eye complaints ENT: Reports system reviewed and no additional complaints, except as documented and Reports as per HPI Cardiovascular: Cardiovascular: Reports as per HPI, Reports no additional cardiovascular complaints and Reports chest pain Respiratory: Respiratory: Reports as per HPI and Reports no additional respiratory complaints Gastrointestinal: Gastrointestinal: Reports as per HPI and Reports no additional gastrointestinal complaints Genitourinary: Genitourinary: Reports no additional male genitourinary complaints and Reports as per HPI Musculoskeletal: Musculoskeletal: Reports no additional musculoskeletal complaints and Reports as per HPI Comments: chronic joint pain status post bilateral shoulder replacements and knee replacement. Integumentary/Breasts: Skin/Breast: Reports system reviewed and no additional complaints, except as docu and Reports as per HPI
--- NOTE | 2024-02-22 20:12 | ECG_ITS ---
SEE SCANNED COPY FOR CONFIRMED REPORT MTDD
[2024-02-22 20:40] LABS: Hematocrit 35.8 % (37.0-46.0); Hemoglobin 11.1 g/dL (12.4-15.3); Immature Platelet Fraction Pct 1.7 % (1.0-7.0); Mean Corpuscular Hemoglobin 27.8 pg (27.0-31.0); Mean Corpuscular Volume 89.5 fL (78.0-102.0); Mean Platelet Volume 9.8 fl (8.7-11.0); Platelet Count Result 87 K/mm3 (150-420); Red Cell Distribution Width 14.8 % (11.6-14.4)
[2024-02-22 20:43] LABS: White Blood Count 36.2 K/mm3 (4.8-10.8)
[2024-02-22 20:52] LABS: Partial Thromboplastin Time 23.4 Sec (23.9-30.70); Prothrombin Time 10.7 Seconds (9.50-12.1)
[2024-02-22 20:53] LABS: D Dimer 0.81 mg/L (0.19-0.50)
[2024-02-22 20:56] LABS: Lactic Acid Reflex 0.8 mmol/L (0.4-2.0)
[2024-02-22 21:00] LABS: Band Neutrophils Percent 0 % (0-6); Basophils Percent Manual 0 % (0-1); Eosinophils Absolute Manual 0.36 K/mm3 (0.02-0.50); Eosinophils Percent Manual 1 % (1-6); Lymphocytes Absolute Manual 31.49 K/mm3 (1.1-4.5); Lymphocytes Percent Manual 87 % (18-44); Monocytes Absolute Manual 1.08 K/mm3 (0.1-0.90); Monocytes Percent Manual 3 % (3-9); Neutrophils Absolute Manual 3.25 K/mm3 (1.3-6.7); Neutrophils Percent Manual 9 % (46-73); Platelet Estimate Slightly Decreased (Adequate)
[2024-02-22 21:05] LABS: Alanine Aminotransferase 22 U/L (16-63); Albumin Level 3.6 g/dL (3.4-5.0); Alkaline Phosphatase 70 U/L (46-116); Anion Gap 9 mmol/L (4-12); Aspartate Amino Transferase 22 U/L (15-37); Bilirubin,Total 0.4 mg/dL (0.00-1.00); Blood Urea Nitrogen 34 mg/dL (7-18); Calcium 8.6 mg/dL (8.5-10.1); Carbon Dioxide 28 mmol/L (21-32); Chloride 104 mmol/L (98-108); Estimated CRCL calculation 39 ml/min; Estimated Glomerular Filt Rate 40; Glucose 122 mg/dL (70-99); NT Pro B Type Natriuretic Pept 295 pg/mL (0-450); Osmolality Calculated 300 mOsm/kg (285-295); Potassium 3.8 mmol/L (3.5-5.1); Sodium 141 mmol/L (136-145); Total Protein 6.6 g/dL (6.4-8.2); Troponin I 13.8 ng/L (0.00-60.4)
--- NOTE | 2024-02-22 21:24 | PC.NURSE ---
patient being transported to ct via wheelchair
[2024-02-22] MEDS: LACTATED RINGERS 1,000 ML 999 ML IV CONT (21:37)
--- NOTE | 2024-02-22 22:01 | PC.NURSE ---
and daughter at the bedside. currently denies any needs. call light in in reach
--- NOTE | 2024-02-22 23:12 | PC.NURSE ---
patient disconnected from monitor so he could walk to the bathroom. currently denies any chest pain. denies any needs. family is at the bedside. call light is in reach
--- NOTE | 2024-02-22 23:25 | PC.NURSE ---
patient and family was notified that blood work and repeat ekg would be completed at 2330. patient and family verbalized understanding
--- NOTE | 2024-02-22 23:30 | ECG_ITS ---
SEE SCANNED COPY FOR CONFIRMED REPORT MTDD
--- NOTE | 2024-02-23 00:55 | PC.NURSE ---
resting on stretcher. family at the bedside. lab work pending. denies any needs. call light in reach.
--- NOTE | 2024-02-23 01:19 | PC.NURSE ---
patient and family updated on delay for lab work. patient and family verbalized understanding that blood work is being taken to [facility] for processing
[2024-02-23 01:55] LABS: Troponin I < 4.000 ng/mL (0.000-0.034)
[2024-02-23 02:03] VITALS: BP 152/85; PULSE 57; RESP 20; O2SAT 97
== END 2024-02-23 02:31 | disposition home or self-care (01) ==
PROVIDERS: Emergency Provider Internal Medicine Critical Care Medicine; PCP Internal Medicine
DX: I20.89 Other forms of angina pectoris (principal); I10 Essential (primary) hypertension; E78.5 Hyperlipidemia, unspecified; N40.0 Benign prostatic hyperplasia without lower urinary tract symptoms; C91.10 Chronic lymphocytic leukemia of B-cell type not having achieved remission; K21.9 Gastro-esophageal reflux disease without esophagitis; Z86.718 Personal history of other venous thrombosis and embolism; Z79.82 Long term (current) use of aspirin; Z87.891 Personal history of nicotine dependence
CPT/HCPCS: 36415; 71045; 71275; 80053; 83605; 83880; 84484; 85025; 85055; 85380; 85610; 85730; 93005; 96360; 99284; J7120; Q9967

== ENCOUNTER 2024-03-09 03:33 | Emergency (ER) | payer MEDICARE, OTHER, SELFPAY ==
[2024-03-09] VITALS (59 sets, daily range): BP systolic 105–165; BP diastolic 71–96; PULSE 60–145; RESP 13–24; TEMP 36.5; O2SAT 90–97
--- NOTE | ~2024-03-09 | XR_ITS ---
XR chest 1V portable 03/09/2024 04:03 Indication: Left-sided chest pain Procedure: AP portable chest Comparison: 02/22/2024 Findings: Heart size normal. Shallow inspiration with crowding of the pulmonary vessels. No focal air space disease, pulmonary edema, pleural effusion or suspected pneumothorax. There are bilateral shou lder arthroplasties. No acute osseous abnormality. Impression: 1: No acute cardiopulmonary disease. Reviewed, dictated and finalized at location B. Impression: 1: No acute cardiopulmonary disease.
--- NOTE | 2024-03-09 03:36 | ECG_ITS ---
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 Measurements Intervals [place] Rate: 64 P: 44 [place]: 252 QRS: -38 QRSD: 112 T: -1 QT: 440 QTc: 456 Interpretive Statements SINUS RHYTHM WITH FIRST DEGREE AV BLOCK LEFT AXIS DEVIATION [QRS AXIS < -30] VOLTAGE CRITERIA FOR LVH [MEETS CRITERIA IN ONE OF: R(aVL), S(V1), R(V5), R(V5/V6)+S(V1)] POSSIBLE ANTERIOR MYOCARDIAL INFARCTION , OF INDETERMINATE AGE [30 ms Q WAVE IN V3/V4, OR R < 0.2 mV IN V4] No previous ECG available for comparison Electronically Signed On 03-09-2024 12:04:12 CDT by Bess Saldivar M.D.
--- NOTE | 2024-03-09 03:51 | ED.CHESTPAIN ---
HPI - Chest Pain General Chief Complaint: Chest Pain <Jonathon Perez MD - Last Filed: 03/09/24 06:53> Stated Complaint: Chest Pain <Jonathon Perez MD - Last Filed: 03/09/24 06:53> Time Seen by Provider: 03/09/24 03:39 <Jonathon Perez MD - Last Filed: 03/09/24 06:53> Source: patient <Jonathon Perez MD - Last Filed: 03/09/24 06:53> Mode of arrival: ambulatory <Jonathon Perez MD - Last Filed: 03/09/24 06:53> Limitations: no limitations <Jonathon Perez MD - Last Filed: 03/09/24 06:53> History of Present Illness HPI narrative: 79-year-old male with a history of hypertension, dyslipidemia, BPH, DVT, CKD, CLL presented to the ED on 02/22/2024 with classic angina. He had chest pain while mowing his yd which resolved with rest. On presentation to the ED on 02/22/2024 he had 2- troponins and a positive D-dimer for which he went on to have a CTA of the chest which was negative for PE. Today he was woken up from his sleep half an hour prior to coming to the ER with -- substernal chest pain. No radiation of the pain. No nausea / vomiting. -- diaphoresis -- palpitation today he was noted to have supraventricular tachycardia with a heart rate of [address] depression in lateral leads. While waiting in the ED he converted to normal sinus rhythm with resolution of his chest pain and palpitation. <Jonathon Perez MD - Last Filed: 03/09/24 06:53> MD complaint: chest pain <Jonathon Perez MD - Last Filed: 03/09/24 06:53> Onset (ago): minute(s) ( 30 minutes ago) <Jonathon Perez MD - Last Filed: 03/09/24 06:53> Prior episodes: Yes <Jonathon Perez MD - Last Filed: 03/09/24 06:53> Onset: during rest <Jonathon Perez MD - Last Filed: 03/09/24 06:53> Pain location: substernal <Jonathon Perez MD - Last Filed: 03/09/24 06:53> Pain radiation: none <Jonathon Perez MD - Last Filed: 03/09/24 06:53> Quality: aching <Jonathon Perez MD - Last Filed: 03/09/24 06:53> Relieving factors: nothing <Jonathon Perez MD - Last Filed: 03/09/24 06:53> Exacerbating factors: nothing <Jonathon Perez MD - Last Filed: 03/09/24 06:53> Associated symptoms: diaphoresis <Jonathon Perez MD - Last Filed: 03/09/24 06:53> Treatment prior to arrival: none <Jonathon Perez MD - Last Filed: 03/09/24 06:53> Risk Factors Coronary artery disease risk factors: smoking history, hyperlipidemia and hypertension <Jontahon Perez MD - Last Filed: 03/09/24 06:53> Thoracic aortic dissection risk factors: longstanding hypertension <Jonathon Perez MD - Last Filed: 03/09/24 06:53> Pulmonary embolism risk factors: history of deep vein thrombosis <Jonathon Perez MD - Last Filed: 03/09/24 06:53> Related Data Home Medications: Home Medications Medication Instructions Recorded Confirmed cholecalciferol (vitamin D3) 25 25 mcg PO DAILY 01/01/23 02/22/24 mcg/drop (1,000 unit/drop) oral drops finasteride 5 mg tablet 5 mg PO DAILY 01/01/23 02/22/24 hydrochlorothiazide 25 mg tablet 25 mg PO DAILY 01/01/23 02/22/24 losartan 100 mg tablet 100 mg PO DAILY 01/01/23 02/22/24 nifedipine 30 mg tablet,extended 60 mg PO HS 01/01/23 02/22/24 release rosuvastatin 20 mg tablet 20 mg PO DAILY 01/01/23 02/22/24 vit 1 tablet PO DAILY 01/01/23 02/22/24 [id number] 500 mg-50 mg-25 mg-40 mg tablet (Bioflex) acetaminophen 500 mg tablet 1,000 mg PO QID PRN Pain 01/16/23 02/22/24 aspirin 325 mg tablet 325 mg PO HS 01/16/23 02/22/24 coenzyme Q10 100 mg capsule 200 mg PO BID 01/16/23 02/22/24 (CoQ-10) coffee extract 100 mg-phosphatidyl 1 cap PO DAILY 01/16/23 02/22/24 serine 100 mg capsule (Neuriva Original) metoprolol succinate 25 mg 25 mg PO HS 01/16/23 02/22/24 tablet,extended release 24 hr pantoprazole 40 mg tablet,delayed 40 mg PO DAILY 01/16/23
--- NOTE | 2024-03-09 03:57 | PC.NURSE ---
Call to lab for orders placed for blood work.
[2024-03-09 04:21] LABS: Hematocrit 38.5 % (37.0-46.0); Hemoglobin 11.9 g/dL (12.4-15.3); Immature Platelet Fraction Pct 1.6 % (1.0-7.0); Mean Corpuscular HGB Conc 30.9 g/dL (32-36); Mean Corpuscular Hemoglobin 27.5 pg (27.0-31.0); Mean Corpuscular Volume 89.1 fL (78.0-102.0); Platelet Count Result 79 K/mm3 (150-420); Red Blood Count 4.32 M/mm3 (4.70-6.10); Red Cell Distribution Width 15.1 % (11.6-14.4)
--- NOTE | 2024-03-09 04:23 | PC.NURSE ---
Pt resting and he reports feeling much better, states he has no pain at this time. POC discussed w/ pt to have another EKG done in about 20 min.
[2024-03-09 04:30] LABS: INR 0.9; Partial Thromboplastin Time 23.4 Sec (23.9-30.70); Prothrombin Time 10.2 Seconds (9.50-12.1); White Blood Count 32.8 K/mm3 (4.8-10.8)
[2024-03-09 04:36] LABS: Lactic Acid Reflex 1.2 mmol/L (0.4-2.0)
[2024-03-09 04:43] LABS: Alanine Aminotransferase 29 U/L (16-63); Albumin Level 3.9 g/dL (3.4-5.0); Alkaline Phosphatase 98 U/L (46-116); Anion Gap 11 mmol/L (4-12); Aspartate Amino Transferase 30 U/L (15-37); Bilirubin,Total 0.3 mg/dL (0.00-1.00); Blood Urea Nitrogen 39 mg/dL (7-18); Calcium 9.2 mg/dL (8.5-10.1); Carbon Dioxide 27 mmol/L (21-32); Chloride 106 mmol/L (98-108); Estimated CRCL calculation 36 ml/min; Estimated Glomerular Filt Rate 37; Glucose 169 mg/dL (70-99); NT Pro B Type Natriuretic Pept 338 pg/mL (0-450); Osmolality Calculated 311 mOsm/kg (285-295); Potassium 3.4 mmol/L (3.5-5.1); Sodium 144 mmol/L (136-145); Total Protein 7.2 g/dL (6.4-8.2); Troponin I 20.9 ng/L (0.00-60.4)
--- NOTE | 2024-03-09 04:47 | ECG_ITS ---
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 Measurements Intervals [place] Rate: 134 P: 0 [place]: 0 QRS: -56 QRSD: 112 T: 119 QT: 304 QTc: 454 Interpretive Statements SUPRAVENTRICULAR TACHYCARDIA LEFT AXIS DEVIATION [QRS AXIS < -30] LEFT VENTRICULAR HYPERTROPHY AND ST-T CHANGE [VOLTAGE CRITERIA PLUS ST/T ABNORMALITY] POSSIBLE ANTERIOR MYOCARDIAL INFARCTION , OF INDETERMINATE AGE [30 ms Q WAVE IN V3/V4, OR R < 0.2 mV IN V4] INTERPRETATION BASED ON A DEFAULT AGE OF 40 YEARS No previous ECG available for comparison Electronically Signed On 03-11-2024 14:11:11 CDT by Bess Saldivar M.D.
[2024-03-09 04:53] LABS: Band Neutrophils Percent 0 % (0-6); Lymphocytes Absolute Manual 29.52 K/mm3 (1.1-4.5); Lymphocytes Percent Manual 90 % (18-44); Neutrophils Absolute Manual 3.28 K/mm3 (1.3-6.7); Neutrophils Percent Manual 10 % (46-73); Smudge Cells MANY; Total Cells Counted 100
[2024-03-09 04:54] LABS: Platelet Estimate Decreased (Adequate); Schistocytes None Seen
--- NOTE | 2024-03-09 05:54 | PC.NURSE ---
Continuing to monitor, pt to have repeat troponin around 0630, Pt VSS w/ monitor showing NSR.
--- NOTE | 2024-03-09 06:59 | PC.NURSE ---
Pt resting, continuing to monitor until repeat trop is back. Report to TEJA Islas
[2024-03-09] MEDS: SODIUM CHLORIDE 0.9% IV 1,000 ML 999 ML IV CONT (07:05)
[2024-03-09] MEDS: POTASSIUM CHLORIDE 20 MEQ ER TABLET 40 MEQ PO (07:05)
[2024-03-09 07:20] LABS: Troponin I 106.9 ng/L (0.00-60.4)
--- NOTE | 2024-03-09 07:24 | PC.NURSE ---
elevated troponin level. dr izaguirre in with patient , discussing plan of care for transfer.
[2024-03-09] MEDS: METOPROLOL TARTRATE 50 MG TAB PO (08:00)
[2024-03-09] MEDS: NITROGLYCERIN OINTMENT 1 INCH DOSE 0.5 INCH TRANSDERM (08:00)
[2024-03-09] MEDS: HEPARIN SODIUM 5,000 UNITS/ML VIAL 4000 UNITS IV PUSH (08:07)
[2024-03-09] MEDS: HEPARIN SOD/D5W 100 UNITS/ML 25,000 UNITS/250 ML BAG 10 UNITS IV CONT (08:10)
--- NOTE | 2024-03-09 08:43 | PC.NURSE ---
pt up to use urinal multiple times, paper scrubs and pull up brief. awaiting bed placement
--- NOTE | 2024-03-09 13:18 | PC.NURSE ---
and daughter return to er, pt and family updated on bed placement. continue to await placement.
== END 2024-03-09 14:19 | disposition short-term general hospital (02) ==
PROVIDERS: Internal Medicine Critical Care Medicine; Emergency Provider Emergency Medicine; PCP Internal Medicine
DX: I21.4 Non-ST elevation (NSTEMI) myocardial infarction (principal); C91.10 Chronic lymphocytic leukemia of B-cell type not having achieved remission; N17.9 Acute kidney failure, unspecified; I10 Essential (primary) hypertension; E78.5 Hyperlipidemia, unspecified; N40.0 Benign prostatic hyperplasia without lower urinary tract symptoms; K21.9 Gastro-esophageal reflux disease without esophagitis; Z86.718 Personal history of other venous thrombosis and embolism; Z87.891 Personal history of nicotine dependence; Z79.82 Long term (current) use of aspirin
CPT/HCPCS: 36415; 71045; 80053; 83605; 83735; 83880; 84484; 85025; 85055; 85610; 85730; 93005; 96361; 96365; 96366; 99285; A9270; J1644; J7030

== ENCOUNTER 2024-03-09 14:57 | Inpatient (IN) | payer MEDICARE, OTHER, SELFPAY ==
[2024-03-09] VITALS (13 sets, daily range): BP systolic 165–175; BP diastolic 82–90; PULSE 58–64; RESP 16–20; TEMP 36.5–37.2; O2SAT 95–97; BMI 26.9
[2024-03-09] MEDS: HEPARIN SOD/D5W 100 UNITS/ML 25,000 UNITS/250 ML BAG 10 UNITS IV CONT (14:57)
--- NOTE | 2024-03-09 15:52 | PM.IMHP ---
H&P: HPI History of Present Illness Date/Time: 03/09/24 15:52 Chief Complaint: Chest pain Narrative: This is a very pleasant 79-year-old gentleman with a past medical history significant for hypertension, hyperlipidemia, BPH and CLL for which he follows with Dr Sarabia at [facility]. The patient presented to outside hospital emergency room with complaints of left-sided substernal chest pain. The patient provides the following history which is supplemented by his and children who are at the bedside. He was seen two weeks ago at [facility] for stable angina. His workup was negative and he was discharged home with recommendations to have an outpatient stress test completed. He is scheduled for a stress test in 2 weeks. Last night he woke up around midnight experiencing similar chest pain and diaphoresis. He took an aspirin for the pain and when it did not resolve he had his take him to the emergency room. Workup in the emergency room was concerning for NSTEMI. He was started on heparin drip, received nitropaste, and a beta-marianne. The patient was transferred to [facility] admitted to IMU with cardiology consult. He will be NPO at midnight for cardiac catheterization in the morning. On my exam he does not appear in acute distress. He denies chest pain at this time. Labs on admission to the emergency room were significant for white count of 32.8, hemoglobin 11.9, potassium 3.4, creatinine 1.8, glucose 169, BNP 338. Initial troponin was 106.9 with repeat 262.0. Chest x-ray shows no cardiopulmonary disease. According to the emergency room physician's note his initial EKG showed significant ST depression with T-wave inversion along with supraventricular tachycardia of a rate in the 130s. After resolution of chest pain and application of nitro paste, repeat EKG showed normal sinus rhythm with first-degree AV block without ST depression initially seen. Review of Systems Review of Systems: All systems reviewed & are unremarkable except as noted in HPI and below PMFSH Past Medical History Medical History Aftercare following right shoulder joint replacement surgery Arthritis BPH (benign prostatic hyperplasia) Chronic GERD Chronic lymphocytic leukemia DVT (deep venous thrombosis) Hyperlipemia Hypertension Kidney stone Overweight (BMI 25.0-29.9) Surgical History Surgical History History of reverse total replacement of left shoulder joint (~02/13/23) History of reverse total replacement of right shoulder joint Presence of right artificial knee joint Family History Family History Mother Cerebrovascular accident Social History Social History (Updated 03/09/24 @ 17:02 by Ana Galaviz APRN) 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 Smoking packs per day: 1 Smoking cigarettes per day: 20.0 Years smoked: 4 Smoking pack-years: 4.00 Smoking status: Former smoker Tobacco type: cigarettes Second hand tobacco smoke exposure: No Smoking end date: 10/08/75 Alcohol intake: current Drinks per week: 1 Substance use: never Do You Feel Safe in your Home?: Yes Lack of Transportation: No Lack of Food: Never True Current Housing: I Have Housing Concerned About Future Housing: No Difficulty Paying Gas/Electric Bills: No Difficulty Paying for Meds: No Currently Unemployed: No Education: High School Diploma/GED Difficulty w/ Childcare or Family Care: No Living arrangements: with family Spiritual care concerns: No Meds Home Medications and Allergies Home Medications Medication Instructions Recorded Confirmed Type cholecalciferol (vitamin D3) 25 25 mcg PO BID 01/01/23 03/09/24 History mcg/drop (1,000 unit/drop) oral drops finasteride 5 mg tablet 5 mg PO DAILY 01/01/23 03/09/24 History hydrochlor
[2024-03-09 16:10] LABS: Partial Thromboplastin Time 57.8 Seconds (22.3-36.8)
--- NOTE | 2024-03-09 16:11 | ECG_ITS ---
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 Measurements Intervals [place] Rate: 70 P: 5 [place]: 224 QRS: -40 QRSD: 113 T: 7 QT: 417 QTc: 452 Interpretive Statements SINUS RHYTHM WITH FIRST DEGREE AV BLOCK MARKED LEFT AXIS DEVIATION [QRS AXIS < -30] VOLTAGE CRITERIA FOR LVH [MEETS CRITERIA IN ONE OF: R(aVL), S(V1), R(V5), R(V5/V6)+S(V1)] POOR R-WAVE PROGRESSION ABNORMAL ECG Compared to ECG 03/09/2024 11:37:24 No significant changes Electronically Signed On 03-10-2024 14:51:26 CDT by Denis Blunt M.D.
--- NOTE | 2024-03-09 16:18 | ADMGEN ---
This patient, Wiliam Perez, was admitted to IMU Room 205-01. Patient/family oriented to hospital policies and general routines including ID bracelet, bed and alarms, visiting hours, pain management, procedures, bathroom and other care routines, personal items, smoking policy, room service/diet, and visiting hours. Information on how to activate the Rapid Response Team has been discussed. Patient/Family are encouraged to report perceived risks to care and to ask questions if they do not understand what they are told or what they should do.
--- NOTE | 2024-03-09 16:45 | PHAR ---
ALLEY (RN) VERIFIED WITH PHYSICIAN THAT HEPARIN PROTOCOL IS TO BE CONTINUED WITH PLATELETS OF 79,000.
[2024-03-09] MEDS: SODIUM CHLORIDE 0.9% IV 1,000 ML 75 ML IV CONT (17:00)
[2024-03-09] MEDS: HEPARIN SODIUM 5,000 UNITS/ML VIAL 4000 UNITS IV PUSH (17:04)
[2024-03-09] MEDS: LOSARTAN POTASSIUM 100 MG TABLET PO (18:25)
[2024-03-09] MEDS: hydroCHLOROthiazide 25 MG TABLET PO (18:25)
[2024-03-09] MEDS: CHOLECALCIFEROL 1,000 UNITS TABLET 1000 UNITS PO (18:25)
[2024-03-09] MEDS: METOPROLOL SUCCINATE EXT REL 25 MG TABCR PO (19:47)
[2024-03-09] MEDS: NIFEdipine 30 MG TAB.ER.24 60 MG PO (19:47)
[2024-03-09 20:10] LABS: Hematocrit 37.6 % (42.0-52.0); Hemoglobin 11.6 g/dL (14.0-18.0); Immature Platelet Fraction Pct 3.3 % (0.9-11.2); Mean Corpuscular HGB Conc 30.9 g/dl (32-36); Mean Corpuscular Hemoglobin 28.2 pg (26-34); Mean Corpuscular Volume 91.5 fl (80-100); Mean Platelet Volume 10.5 fl (7.4-10.4); Platelet Count Result 82 k/mm3 (150-375); Red Blood Count 4.11 M/mm3 (4.6-6.20); Red Cell Distribution Width 15.6 % (11.5-14.5); White Blood Count 44.3 K/mm3 (4.5-10.0)
[2024-03-09 20:18] LABS: Alanine Aminotransferase 19 U/L (6-50); Albumin Level 4.2 g/dL (3.5-5.1); Alkaline Phosphatase 65 U/L (38-126); Anion Gap 7 mmol/L (4-12); Aspartate Amino Transferase 35 U/L (17-59); Bilirubin,Total 0.6 mg/dL (0.2-1.3); Blood Urea Nitrogen 30 mg/dL (9-20); Calcium 9.4 mg/dL (8.4-10.2); Carbon Dioxide 27 mmol/L (22-30); Chloride 109 mmol/L (98-107); Estimated CRCL calculation 46 ml/min; Estimated Glomerular Filt Rate 49; Glucose 103 mg/dL (65-110); Sodium 143 mmol/L (137-145)
[2024-03-09 20:25] LABS: Lymphocytes Absolute Manual 41.19 K/mm3 (1.1-4.5); Lymphocytes Percent Manual 93 % (18-44); Monocytes Absolute Manual 0.44 K/mm3 (0.1-0.90); Monocytes Percent Manual 1 % (3-9); Neutrophils Percent Manual 6 % (46-73); Total Cells Counted 100
[2024-03-09 20:26] LABS: Atypical Lymphocytes Present; Platelet Estimate Decreased (Adequate); Schistocytes None Seen; Smudge Cells PRESENT
[2024-03-09 20:58] LABS: Troponin I 0.228 ng/mL (0.000-0.034)
[2024-03-10] VITALS (49 sets, daily range): BP systolic 119–174; BP diastolic 61–100; PULSE 57–98; RESP 12–22; TEMP 36.6–37; O2SAT 90–100
--- NOTE | 2024-03-10 | ECHO_ITS ---
Patient Info Name: Wiliam Perez Age: 79 years : 1945 Gender: Male Ht: 74 in Wt: 209 lbs BSA: 2.24 m2 HR: 75 bpm BP: 151 / 90 mmHg Heart Rhythm: Sinus Rhythm Technical Quality: Fair Exam Date: 03/10/2024 7:34 AM Exam Location: Echo Lab Patient Status: Outpatient Admit Date: 03/09/2024 Staff Ordering Physician: Ana Galaviz APRN Archeology Professor: Shirin Garcia [facility] Attending Provider: Stanford Soria MD Referring Physician: Anastacia BRICE; Exam Type: CA echo doppler color flow Study Info Indications R07.9 - Chest pain, unspecified I50.20 - Unspecified systolic (congestive) heart failure Complete two-dimensional, color flow and Doppler transthoracic echocardiogram is performed. Summary 1. Complete two-dimensional, color flow and Doppler transthoracic echocardiogram is performed. 2. Left ventricular hypertrophy with preserved systolic function and grade 1 diastolic noncompliance. 3. Trivial aortic and mitral valve regurgitation. 4. Left atrial enlargement. Left Ventricular Outflow Tract Name Value Normal LVOT 2D LVOT Diameter 2.1 cm LVOT Doppler LVOT Peak Gradient 2 mmHg LVOT Mean Gradient 1 mmHg LVOT VTI 17 cm LVOT VTI/AV VTI Ratio 0.7 LVOT Stroke Volume 59 ml LVOT CO 3.9 l/min LVOT CI 1.8 l/min/m2 Pulmonic Valve Name Value Normal RVOT Doppler RVOT Peak Gradient 1 mmHg PV Doppler PV Peak Gradient 2 mmHg Mitral Valve Name Value Normal MV Doppler MV Decel Centre 238 cm/s2 MV PHT 64 ms MV Area (PHT) 3.4 cm2 4.0-5.0 MV Diastolic Function MV E Peak Velocity 52 cm/s MV A Peak Velocity 77 cm/s MV E/A 0.7 MV Decel Time 221 ms Tricuspid Valve Name Value Normal TV Regurgitation Doppler TR Peak Velocity 241 cm/s TR Peak Gradient 19 mmHg Estimated PAP/RSVP
[2024-03-10 07:09] LABS: Basophils Absolute Auto 0.1 K/mm3 (0.0-0.1); Basophils Percent Auto 0.1 % (0.2-1.2); Eosinophils Absolute Auto 0.3 K/mm3 (0-0.3); Eosinophils Percent Auto 0.5 % (0-4.4); Hematocrit 39.7 % (42.0-52.0); Hemoglobin 12.5 g/dL (14.0-18.0); Immature Granulocyte Absolute 0.09 K/mm3 (0.00-0.031); Immature Granulocyte Percent A 0.2 % (0-0.5); Immature Platelet Fraction Pct 2.6 % (0.9-11.2); Lymphocytes Absolute Auto 51.08 K/mm3 (0.9-3.2); Lymphocytes Percent Auto 90.3 % (18.3-44.2); Mean Corpuscular HGB Conc 31.5 g/dl (32-36); Mean Corpuscular Hemoglobin 28.5 pg (26-34); Mean Corpuscular Volume 90.4 fl (80-100); Mean Platelet Volume 10.4 fl (7.4-10.4); Monocytes Absolute Auto 0.7 K/mm3 (0.1-0.6); Monocytes Percent Auto 1.3 % (2.6-8.5); Neutrophils Absolute Auto 4.3 K/mm3 (1.3-6.7); Neutrophils Percent Auto 7.6 % (45.5-73.1); Platelet Count Result 93 k/mm3 (150-375); Red Blood Count 4.39 M/mm3 (4.6-6.20); Red Cell Distribution Width 15.4 % (11.5-14.5)
[2024-03-10 07:17] LABS: White Blood Count 56.6 K/mm3 (4.5-10.0)
[2024-03-10 07:18] LABS: Alanine Aminotransferase 19 U/L (6-50); Albumin Level 4.7 g/dL (3.5-5.1); Alkaline Phosphatase 68 U/L (38-126); Anion Gap 5 mmol/L (4-12); Aspartate Amino Transferase 32 U/L (17-59); Bilirubin,Total 0.9 mg/dL (0.2-1.3); Blood Urea Nitrogen 24 mg/dL (9-20); Calcium 9.6 mg/dL (8.4-10.2); Carbon Dioxide 29 mmol/L (22-30); Chloride 106 mmol/L (98-107); Cholesterol 174 mg/dL (0-200); Estimated CRCL calculation 50 ml/min; Estimated Glomerular Filt Rate 54; Glucose 111 mg/dL (65-110); HDL Direct 34 mg/dL; INR 1.1; Magnesium 1.9 mg/dL (1.6-2.3); Potassium 3.7 mmol/L (3.4-5.0); Prothrombin Time 14.1 Seconds (11.1-14.7); Sodium 140 mmol/L (137-145); Triglycerides 178 mg/dL (<150)
[2024-03-10 07:20] LABS: Partial Thromboplastin Time 67.6 Seconds (22.3-36.8)
[2024-03-10 07:26] LABS: Anisocytosis 1+; Atypical Lymphocytes Present; Microcytosis 1+ (NORMAL); Ovalocytes 1+; Platelet Estimate Decreased (Adequate); Schistocytes None Seen
[2024-03-10 07:29] LABS: LDL Cholesterol Direct 103 mg/dL
[2024-03-10] MEDS: HEPARIN SODIUM 5,000 UNITS/ML VIAL 4000 UNITS IV PUSH (07:31)
[2024-03-10 07:45] LABS: Troponin I 0.124 ng/mL (0.000-0.034)
[2024-03-10 07:55] LABS: Iron 99 ug/dL (49-181)
--- NOTE | 2024-03-10 07:59 | P.PNIM_ITS ---
Progress Note: A&P Assessment and Plan (1) Acute non-ST elevation myocardial infarction (NSTEMI): Code(s): I21.4 - Non-ST elevation (NSTEMI) myocardial infarction Status: Inactive Assessment and Plan: unstable angina. Patient received nitro paste, ASA 324 mg, metoprolol tartrate 50 mg x 1, and was started on a heparin gtt per cardiology recs. Patient was admitted to IMU. * EKG with ST depression and SVT rate 130's at OSH. Patient converted without intervention. Repeat EKG showed 1st degree AV block with NSR and resolution of ST depression. * Troponin 106.9--->262.0. Repeat a troponin tonight. * Continue heparin gtt despite low platelets of 77 per cardiology. Monitor of s/s of bleeding. Monitor neuro changes and obtain STAT CT head for acute mental status changes. * Okay to d/c nitro paste as he no longer is having chest pain. PRN nitro sublingual ordered. * Home medications have been reviewed and antihypertensives restarted. Blood pressure 165/84 on admission to this hospital. HR 62 * Telemetry ordered * PRN EKG for recurrent chest pain * Cardiology consulted, recs appreciated. Anticipate cardiac catheterization in the am. * NPO at midnight 03/10: * No chest pain * Heparin gtt until heart cath * Cards will provide further recs after cath (2) TORITO (acute kidney injury): Code(s): N17.9 - Acute kidney failure, unspecified Status: Inactive Assessment and Plan: Cr elevated at 1.8 on admission * Gentle fluid hydration with NS at 75 ml per hour * repeat BMP in the am * strict intake and output 03/10: * renal function improving * Cr 1.3 today (3) Chronic lymphocytic leukemia: Code(s): C91.10 - Chronic lymphocytic leukemia of B-cell type not having achieved remission Status: Inactive Assessment and Plan: Follows with [facility] * WBC 32.8, Hemoglobin 11.2, Platelets 79 (4) Anemia: Code(s): D64.9 - Anemia, unspecified Status: Acute Assessment and Plan: Hemoglobin 11.2 * likely secondary to known CLL * Add on TIBC, iron, vitamin b12, and folate for am labs * no overt bleeding 03/10: * iron studies reviewed and are normal * hemoglobin 12.5 today (5) Thrombocytopathia: Code(s): D69.1 - Qualitative platelet defects Status: Acute Assessment and Plan: Platelets 93 today * likely 2/2 his CLL * monitor for bleeding * CT head for acute AMS (6) BPH (benign prostatic hyperplasia): Code(s): N40.0 - Benign prostatic hyperplasia without lower urinary tract symptoms Status: Acute Assessment and Plan: On Proscar, medication restarted (7) Chronic GERD: Code(s): K21.9 - Gastro-esophageal reflux disease without esophagitis Status: Acute Assessment and Plan: Stable. On Protonix. Plan Feeding:heart healthy diet now, NPO at midnight Analgesia: Tylenol, morphine Thromboembolic prophylaxis: heparin gtt, SCD Ulcer prophylaxis: PPI Lines: PIV Disposition: Home when medically ready. Lives in [place]. Cardiac rehab at [facility]. Subjective Date/time seen: 03/10/24 07:59 Interval history: This is a very pleasant 79-year-old gentleman with a past medical history significant for hypertension, hyperlipidemia, BPH and CLL for which he follows with Dr Sarabia at [facility]. The patient presented to outside hospital emergency room with complaints of left-sided substernal chest pain. 03/10/24: Mr Perez is doing well today. He is nervous about his proced
--- NOTE | 2024-03-10 07:59 | PM.IMPN ---
Progress Note: A&P Assessment and Plan (1) Acute non-ST elevation myocardial infarction (NSTEMI): Code(s): I21.4 - Non-ST elevation (NSTEMI) myocardial infarction Status: Inactive Assessment and Plan: unstable angina. Patient received nitro paste, ASA 324 mg, metoprolol tartrate 50 mg x 1, and was started on a heparin gtt per cardiology recs. Patient was admitted to IMU. EKG with ST depression and SVT rate 130's at OSH. Patient converted without intervention. Repeat EKG showed 1st degree AV block with NSR and resolution of ST depression. Troponin 106.9--->262.0. Repeat a troponin tonight. Continue heparin gtt despite low platelets of 77 per cardiology. Monitor of s/s of bleeding. Monitor neuro changes and obtain STAT CT head for acute mental status changes. Okay to d/c nitro paste as he no longer is having chest pain. PRN nitro sublingual ordered. Home medications have been reviewed and antihypertensives restarted. Blood pressure 165/84 on admission to this hospital. HR 62 Telemetry ordered PRN EKG for recurrent chest pain Cardiology consulted, recs appreciated. Anticipate cardiac catheterization in the am. NPO at midnight 6/3: No chest pain Heparin gtt until heart cath Cards will provide further recs after cath (2) TORITO (acute kidney injury): Code(s): N17.9 - Acute kidney failure, unspecified Status: Inactive Assessment and Plan: Cr elevated at 1.8 on admission Gentle fluid hydration with NS at 75 ml per hour repeat BMP in the am strict intake and output 6/3: renal function improving Cr 1.3 today (3) Chronic lymphocytic leukemia: Code(s): C91.10 - Chronic lymphocytic leukemia of B-cell type not having achieved remission Status: Inactive Assessment and Plan: Follows with [facility] WBC 32.8, Hemoglobin 11.2, Platelets 79 (4) Anemia: Code(s): D64.9 - Anemia, unspecified Status: Acute Assessment and Plan: Hemoglobin 11.2 likely secondary to known CLL Add on TIBC, iron, vitamin b12, and folate for am labs no overt bleeding 6/3: iron studies reviewed and are normal hemoglobin 12.5 today (5) Thrombocytopathia: Code(s): D69.1 - Qualitative platelet defects Status: Acute Assessment and Plan: Platelets 93 today likely 2/2 his CLL monitor for bleeding CT head for acute AMS (6) BPH (benign prostatic hyperplasia): Code(s): N40.0 - Benign prostatic hyperplasia without lower urinary tract symptoms Status: Acute Assessment and Plan: On Proscar, medication restarted (7) Chronic GERD: Code(s): K21.9 - Gastro-esophageal reflux disease without esophagitis Status: Acute Assessment and Plan: Stable. On Protonix. Plan Feeding:heart healthy diet now, NPO at midnight Analgesia: Tylenol, morphine Thromboembolic prophylaxis: heparin gtt, SCD Ulcer prophylaxis: PPI Lines: PIV Disposition: Home when medically ready. Lives in [place]. Cardiac rehab at [facility]. Subjective Date/time seen: 03/10/24 07:59 Interval history: This is a very pleasant 79-year-old gentleman with a past medical history significant for hypertension, hyperlipidemia, BPH and CLL for which he follows with Dr Sarabia at [facility]. The patient presented to outside hospital emergency room with complaints of left-sided substernal chest pain. 03/10/24: Mr Perez is doing well today. He is nervous about his procedure. He denies chest pain or shortness of breath. Plan for cardiac cath later this morning. Review of Systems Review of Systems: All systems reviewed & are unremarkable except as noted in HPI and below Exam Narrative: General: well appearing, appears stated age. HEENT: normocephalic, atraumatic. Mucous membranes moist. EOMI, PERRLA, bilateral sclera anicteric, no conjunctival injection. Neck supple without JVD, lymphadenopathy, or bruit.
[2024-03-10 08:04] LABS: Percent Iron Saturation 25 % (20-50)
[2024-03-10 08:23] LABS: Folic Acid 9.5 ng/mL (2.76->20)
--- NOTE | 2024-03-10 08:26 | PM.CNCAR ---
Assessment and Plan Assessment and plan (1) Chest pain: Code(s): R07.9 - Chest pain, unspecified Status: Acute Plan This is a 79-year-old man with hypertension and dyslipidemia. He reports a history of fairly typical exertional angina for a couple weeks and then an episode of ischemic chest pain that was awakened him from sleep the previous night. He has a very modest rise in his troponin level and in this setting and angiogram is appropriate and has been recommended. He is somewhat thrombocytopenic presumably as a result of his CLL. He has no history of hemorrhagic problems. He will be kept on IV heparin till he goes to the lab scientist I will order low-dose aspirin to start at this time. Further recommendations will be pending completion of his angiograms Denis Blunt MD [facility] History of Present Illness History of Present Illness Consult date/time: 03/10/24 08:26 Reason For Visit: nstemi Narrative: This is a 79-year-old man I am seeing at the request of the hospitalist's for cardiovascular evaluation anticipating the need for coronary angiogram. Patient is unknown to me prior to this consultation. He is not known to have coronary artery disease or significant heart problems before this. He states that he started to have episodes of left precordial chest pain about 2 weeks ago. The 1st episode occurred while he was mowing his lawn he had a dull weight like pressure sensation in the left precordium that resolved with about 10-15 minutes of rest in his house. Couple of more episodes occur that were less significant the than that. He came to the emergency room at [place] yesterday because an episode of like this awakened him from sleep at 3:00 a.m. in the morning. According to the records he was in an atrial tachycardia at the time of presentation and spontaneously converted to sinus rhythm. We do not have those EKGs per my personal review at the time of this consultation. He was transferred here for angiography because of those symptoms and a modest rise in his troponin level. He was started on heparin drip and since then he has been asymptomatic. He is he does have a history of hypertension and dyslipidemia as well as chronic lymphocytic leukemia. 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 Review of Systems Constitutional: Constitutional: Reports no additional constitutional complaints Eyes: Eyes: Reports no additional eye complaints ENT: Reports system reviewed and no additional complaints, except as documented Cardiovascular: Cardiovascular: Reports as per HPI Respiratory: Respiratory: Reports no additional respiratory complaints Gastrointestinal: Gastrointestinal: Reports no additional gastrointestinal complaints Musculoskeletal: Musculoskeletal: Reports no additional musculoskeletal complaints Integumentary/Breasts: Skin/Breast: Reports system reviewed and no additional complaints, except as docu Neurologic: Reports system reviewed and no additional complaints, except as documented Endocrine: Endocrine: Reports no additional endocrine complaints Hematologic/Lymphatic: Hematologic/Lymphatic: Reports as per HPI Allergic/Immunologic: Allergic/Immunologic: Reports no additional allergic/immunologic complaints [facility] Past Medical History Medical History Aftercare following right shoulder joint replacement surgery Arthritis BPH (benign prostatic hyperplasia) Chronic GERD Chronic lymphocytic leukemia DVT (deep venous thrombosis) Hyperlipemia Hypertension Kidney stone Overweight (BMI 25.0-29.9) Surgical History Surgical History History of reverse total replacement of left shoulder joint (~02/13/23) History of reverse total replacement of right shoulder joint Presence of right artificial knee joint Family History Family History (Reviewed 03/09/24 @ 17:02 by Ana Peterson
--- NOTE | 2024-03-10 08:40 | PC.NURSE ---
ECHO completed, Dr. Blunt at bedside with family discussing plan of care. Aspirin dose added to medication list.
[2024-03-10] MEDS: FINASTERIDE 5 MG TABLET PO (09:10)
[2024-03-10] MEDS: ASPIRIN 81 MG CHEWABLE TABLET PO (09:11)
[2024-03-10] MEDS: LOSARTAN POTASSIUM 100 MG TABLET PO (09:11)
[2024-03-10] MEDS: ROSUVASTATIN 20 MG TABLET PO (09:11)
[2024-03-10] MEDS: hydroCHLOROthiazide 25 MG TABLET PO (09:11)
[2024-03-10] MEDS: PANTOPRAZOLE 40 MG TABLET PO (09:11)
[2024-03-10] MEDS: CHOLECALCIFEROL 1,000 UNITS TABLET 1000 UNITS PO ×2 (09:17→20:52)
[2024-03-10] MEDS: SODIUM CHLORIDE 0.9% IV 1,000 ML 75 ML IV CONT (10:57)
--- NOTE | 2024-03-10 11:27 | WPDMODSED ---
Moderate Sedation Note-Pt Data Patient Data Diagnosis: chest pain suspicious for unstable angina Present Complaint: exertional chest pain, admitted with episode of nocturnal chest pain Procedure to be performed/Plan: left heart catheterization Allergies Allergy/AdvReac Type Severity Reaction Status Date / Time Penicillins Allergy Unknown Hives Verified 02/14/24 08:06 Home Medications Medication Instructions Recorded Confirmed Type cholecalciferol (vitamin D3) 25 25 mcg PO BID 01/01/23 03/09/24 History mcg/drop (1,000 unit/drop) oral drops finasteride 5 mg tablet 5 mg PO DAILY 01/01/23 03/09/24 History hydrochlorothiazide 25 mg tablet 25 mg PO DAILY 01/01/23 03/09/24 History losartan 100 mg tablet 100 mg PO DAILY 01/01/23 03/09/24 History nifedipine 30 mg tablet,extended 60 mg PO HS 01/01/23 03/09/24 History release rosuvastatin 20 mg tablet 20 mg PO DAILY 01/01/23 03/09/24 History vit 2 tablet PO DAILY 01/01/23 03/09/24 History [id number] 500 mg-50 mg-25 mg-40 mg tablet (Bioflex) acetaminophen 500 mg tablet 1,000 mg PO QID PRN Pain 01/16/23 02/22/24 History aspirin 325 mg tablet 325 mg PO HS 01/16/23 03/09/24 History coenzyme Q10 100 mg capsule 100 mg PO DAILY 01/16/23 03/09/24 History (CoQ-10) coffee extract 100 mg-phosphatidyl 1 cap PO DAILY 01/16/23 02/22/24 History serine 100 mg capsule (Neuriva Original) metoprolol succinate 25 mg 25 mg PO HS 01/16/23 03/09/24 History tablet,extended release 24 hr pantoprazole 40 mg tablet,delayed 40 mg PO DAILY 01/16/23 03/09/24 History release potassium chloride 10 mEq 10 meq PO DAILY 01/16/23 03/09/24 History tablet,extended release(part/cryst) (Klor-Con M) aspirin 81 mg tablet,delayed 81 mg PO BID 14 days #28 tabs 02/13/23 02/22/24 Rx release Current Medications: Active Medications Acetaminophen (Acetaminophen 325 Mg Tablet) 650 mg PO Q4H PRN PRN Reason: Mild Pain (1-3) or Fever Aspirin (Aspirin 81 Mg Chewable Tablet) 81 mg PO DAILY@0800 [facility] Last Admin: 03/10/24 09:11 Dose: 81 mg Finasteride (Finasteride 5 Mg Tablet) 5 mg PO DAILY [facility] Last Admin: 03/10/24 09:10 Dose: 5 mg Heparin Sodium (Porcine) (Heparin Sodium 5,000 Units/Ml Vial) 4,000 units IV PUSH PRN PRN PRN Reason: aPTT less than 55 seconds Last Admin: 03/10/24 07:31 Dose: 4,000 units Heparin Sodium (Porcine) (Heparin Sodium 5,000 Units/Ml Vial) 4,000 units IV PUSH PRN PRN PRN Reason: aPTT 55 - 70 seconds Hydrochlorothiazide (Hydrochlorothiazide 25 Mg Tablet) 25 mg PO DAILY [facility] Last Admin: 03/10/24 09:11 Dose: 25 mg Sodium Chloride (Normal Saline Iv) 1,000 mls @ 75 mls/hr IV CONT .[id number] [facility] Last Admin: 03/10/24 10:57 Dose: 75 mls/hr Heparin Sodium/Dextrose (Heparin Sodium/D5w 100 Units/Ml) 25,000 units in 250 mls @ 11 mls/hr IV CONT .[id number] [facility]; Protocol Last Titration: 03/10/24 07:32 Dose: 1,100 units/hr, 11 mls/hr Losartan Potassium (Losartan Potassium 100 Mg Tablet) 100 mg PO DAILY [facility] Last Admin: 03/10/24 09:11 Dose: 100 mg Metoprolol Succinate (Metoprolol Succinate Ext Rel 25 Mg Tabcr) 25 mg PO [facility] Last Admin: 03/09/24 19:47 Dose: 25 mg Morphine Sulfate (Morphine Sulfate (*Crx) 2 Mg/Ml Inj) 2 mg IV PUSH Q4H PRN PRN Reason: Pain Rated 7-10 Nifedipine (Nifedipine 30 Mg Tab.Er.24) 60 mg PO [facility] Last Admin: 03/09/24 19:47 Dose: 60 mg Nitroglycerin (Nitroglycerin Sl 0.4 Mg Tablet) 0.4 mg SUBLINGUAL Q5MIN PRN PRN Reason: Chest Pain Ondansetron HCl (Ondansetron Inj 4 Mg/2 Ml Vial) 4 mg IV PUSH Q6H PRN PRN Reason: Nausea And Vomiting Pantoprazole Sodium (Pantoprazole 40 Mg Tablet) 40 mg PO DAILY [facility] Last Admin: 03/10/24 09:11 Dose: 40 mg Perflutren Lipid Microsphere (Perflutren Lipid Microspheres 1.5 Ml Vial Diluted To 10 Ml Total Volume) 0 ml IV PUSH ONCE PRN; Protocol PRN Reason: adequate visualization Stop: 03/12/24 16:08 Rosuvastatin Calcium (Rosuvastatin 20 Mg Ta
--- NOTE | 2024-03-10 11:38 | PC.NURSE ---
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
--- NOTE | 2024-03-10 12:34 | WPDCARDPROC ---
Cardiac Cath Procedure Note Date of procedure:: 03/10/24 Performing physician:: Denis Blunt MD Indication:: acute coronary syndrome / non ST elevation IN Brief clinical history:: this is a 79-year-old man without any prior history of coronary disease. He has a history of hypertension and dyslipidemia as well as CLL. He was transferred to this hospital with an episode of chest pain that occurred in nocturnal fashion associated with a small troponin rise. He has had the onset of exertional chest pain for the last 2 weeks Procedure Procedure performed:: coronary angiography Sedation/Medication given:: fentanyl 50 mg Versed 2 mg case start time 1:54 a.m. case end time 1228 p.m. sedation provided by Kyleigh Michael RN, trained observer Access site:: right femoral artery Estimated blood loss:: 25 cc Procedure note:: patient was brought to the cardiac catheterization lab in the postabsorptive state where the right femoral triangle was prepped fashion. Using the modified Seldinger technique the right femoral artery was punctured and a guidewire was placed. Fluoroscopically it was obvious that the femoral and iliac arteries were extremely tortuous. For this reason I elected to place a 6 Tajik 45 cm sheath to allow for more successful angiography to be performed. Following this I advanced a 5 Tajik FL4 catheter into the aortic root. It was clear the aortic root was dilated and I could not cannulate the left coronary artery successfully with this catheter. I that was able to successfully cannulate the left main and perform angiography using a FL 5 catheter. Multiple angiograms were done using this catheter. I then at C5 Tajik JR4 catheter into the aortic root. I was not able to 6 was successfully intubated the right with this catheter. I then used a 6 Tajik WRP guiding catheter to perform right coronary angiography since we did not have a WRP diagnostic catheter in the lab. The cineangiograms were then reviewed. The case was terminated the patient will be taken to the holding area for sheath removal manually. Procedure was challenging because of the iliac/femoral tortuosity and the dilatation of the aortic root but otherwise uncomplicated. Findings:: Hemodynamics: Central aortic pressure is 152 over 84. The left ventricle was not entered during this procedure the left main coronary artery is patent there is some calcification at the origin of the left main but there are no stenotic lesions. The left anterior descending is a medium caliber artery extending down to the apex. There is a high-grade 95% stenosis which is discrete, somewhat eccentric in the proximal LAD. Distal to this there are mild diffuse luminal irregularities but no Flow limiting disease. the circumflex is a moderate caliber artery giving rise to 2 marginal branches. The 1st marginal branch has a somewhat long 95% stenosis. This is a small to medium caliber artery. The distal trunk of the circumflex has mild non flow-limiting plaque. Right coronary artery is large in caliber has some calcification at the ostium there are no stenotic lesions until the 3rd portion of the right coronary where there is diffuse 70% stenosis followed by a 90% stenosis with ectatic dilatation just before the bifurcation of the RPDA and RPL branches. Conclusion:: 1. Right coronary dominant circulation with severe 3 vessel coronary disease including high-grade stenosis in the proximal LAD, the 1st OM circumflex branch which is a small to medium caliber vessel as well as high-grade stenosis in the distal RCA which is also ectatic and dilated 2. significant tortuosity of the right femoral and iliac arteries that made the procedure somewhat more challenging and necessitated placement of a long 45 cm sheath as detailed above 3. aortic root enlargement which necessitated use a large curve catheter to study the left coronary artery. Additional imaging of the th
[2024-03-10 15:18] LABS: Partial Thromboplastin Time 50.9 Seconds (22.3-36.8)
[2024-03-10 16:34] LABS: Partial Thromboplastin Time 37.6 Seconds (22.3-36.8)
[2024-03-10] MEDS: LABETALOL HCL INJ 100 MG/20 ML VIAL 20 MG IV PUSH (17:10)
[2024-03-10 17:19] LABS: Activated Clotting Time 163 SEC (74-137)
[2024-03-10 17:19] LABS: Activated Clotting Time 174 SEC (74-137)
[2024-03-10 17:19] LABS: Activated Clotting Time 158 SEC (74-137)
[2024-03-10] MEDS: SODIUM CHLORIDE 0.9% IV 1,000 ML 125 ML IV CONT (17:23)
--- NOTE | 2024-03-10 18:57 | PC.NURSE ---
Patient transferred to ICU 1 post cath, received report from [facility] RN at bedside. Patient to transfer via bed back to 205- after change of shift.
--- NOTE | 2024-03-10 19:09 | PC.NURSE ---
Updated [facility] call center on patient status.
[2024-03-10 19:11] LABS: Hematocrit 41.9 % (42.0-52.0); Hemoglobin 12.7 g/dL (14.0-18.0); Immature Platelet Fraction Pct 2.5 % (0.9-11.2); Mean Corpuscular HGB Conc 30.3 g/dl (32-36); Mean Corpuscular Hemoglobin 28.3 pg (26-34); Mean Corpuscular Volume 93.3 fl (80-100); Mean Platelet Volume 10.3 fl (7.4-10.4); Platelet Count Result 84 k/mm3 (150-375); Red Blood Count 4.49 M/mm3 (4.6-6.20); Red Cell Distribution Width 15.3 % (11.5-14.5); White Blood Count 42.2 K/mm3 (4.5-10.0)
[2024-03-10 19:24] LABS: Alanine Aminotransferase 17 U/L (6-50); Albumin Level 4.2 g/dL (3.5-5.1); Alkaline Phosphatase 60 U/L (38-126); Anion Gap 7 mmol/L (4-12); Aspartate Amino Transferase 33 U/L (17-59); Bilirubin,Total 1.1 mg/dL (0.2-1.3); Blood Urea Nitrogen 21 mg/dL (9-20); Calcium 9.2 mg/dL (8.4-10.2); Carbon Dioxide 24 mmol/L (22-30); Chloride 107 mmol/L (98-107); Estimated CRCL calculation 53 ml/min; Estimated Glomerular Filt Rate 59; Glucose 109 mg/dL (65-110); Magnesium 1.8 mg/dL (1.6-2.3); Potassium 3.6 mmol/L (3.4-5.0); Sodium 138 mmol/L (137-145)
[2024-03-10 20:37] LABS: Monocytes Absolute Manual 0.84 K/mm3 (0.1-0.90); Monocytes Percent Manual 2 % (3-9); Neutrophils Percent Manual 16 % (46-73); Total Cells Counted 100
[2024-03-10 20:38] LABS: Platelet Estimate Decreased (Adequate); Schistocytes None Seen
[2024-03-10 20:39] LABS: Anisocytosis 1+; Atypical Lymphocytes Present; Burr Cells 1+; Ovalocytes 1+
[2024-03-10] MEDS: NIFEdipine 30 MG TAB.ER.24 60 MG PO (20:52)
[2024-03-10] MEDS: METOPROLOL SUCCINATE EXT REL 25 MG TABCR PO (20:52)
[2024-03-11] VITALS (14 sets, daily range): BP systolic 129–169; BP diastolic 85–95; PULSE 62–85; RESP 18–20; TEMP 36.1–36.9; O2SAT 95–98
[2024-03-11 05:27] LABS: Magnesium 1.9 mg/dL (1.6-2.3)
[2024-03-11 08:09] LABS: Activated Clotting Time 185 SEC (74-137)
[2024-03-11] MEDS: CHOLECALCIFEROL 1,000 UNITS TABLET 1000 UNITS PO ×2 (08:30→16:34)
[2024-03-11] MEDS: LOSARTAN POTASSIUM 100 MG TABLET PO (08:30)
[2024-03-11] MEDS: PANTOPRAZOLE 40 MG TABLET PO (08:30)
[2024-03-11] MEDS: hydroCHLOROthiazide 25 MG TABLET PO (08:30)
[2024-03-11] MEDS: ROSUVASTATIN 20 MG TABLET PO (08:30)
[2024-03-11] MEDS: ASPIRIN 81 MG CHEWABLE TABLET PO (08:31)
[2024-03-11] MEDS: FINASTERIDE 5 MG TABLET PO (08:31)
--- NOTE | 2024-03-11 09:32 | P.PNIM_ITS ---
Progress Note: A&P Assessment and Plan (1) Acute non-ST elevation myocardial infarction (NSTEMI): Code(s): I21.4 - Non-ST elevation (NSTEMI) myocardial infarction Status: Inactive Assessment and Plan: unstable angina. Patient received nitro paste, ASA 324 mg, metoprolol tartrate 50 mg x 1, and was started on a heparin gtt per cardiology recs. Patient was admitted to IMU. * EKG with ST depression and SVT rate 130's at OSH. Patient converted without intervention. Repeat EKG showed 1st degree AV block with NSR and resolution of ST depression. * Troponin 106.9--->262.0. Repeat a troponin tonight. * Continue heparin gtt despite low platelets of 77 per cardiology. Monitor of s/s of bleeding. Monitor neuro changes and obtain STAT CT head for acute mental status changes. * Okay to d/c nitro paste as he no longer is having chest pain. PRN nitro sublingual ordered. * Home medications have been reviewed and antihypertensives restarted. Blood pressure 165/84 on admission to this hospital. HR 62 * Telemetry ordered * PRN EKG for recurrent chest pain * Cardiology consulted, recs appreciated. Anticipate cardiac catheterization in the am. * NPO at midnight 03/10: * No chest pain * Heparin gtt until heart cath * Cards will provide further recs after cath 03/11: * Awaiting transfer to [place] * Receiving aspirin 81 mg daily * No chest pain (2) TORITO (acute kidney injury): Code(s): N17.9 - Acute kidney failure, unspecified Status: Inactive Assessment and Plan: Cr elevated at 1.8 on admission * Gentle fluid hydration with NS at 75 ml per hour * repeat BMP in the am * strict intake and output 03/10: * renal function improving * Cr 1.3 today 03/11: * Cr 1.4 * Monitor BMP * If Cr continues to increase can start gentle hydration (3) Chronic lymphocytic leukemia: Code(s): C91.10 - Chronic lymphocytic leukemia of B-cell type not having achieved remission Status: Inactive Assessment and Plan: Follows with [facility] * WBC 32.8, Hemoglobin 11.2, Platelets 79 03/11: * white count 38.4, hemoglobin 11.4, and platelets 80 (4) Anemia: Code(s): D64.9 - Anemia, unspecified Status: Acute Assessment and Plan: Hemoglobin 11.2 * likely secondary to known CLL * Add on TIBC, iron, vitamin b12, and folate for am labs * no overt bleeding /: * iron studies reviewed and are normal * hemoglobin 12.5 today (5) Thrombocytopathia: Code(s): D69.1 - Qualitative platelet defects Status: Acute Assessment and Plan: Platelets 93 today * likely 2/2 his CLL * monitor for bleeding * CT head for acute AMS (6) BPH (benign prostatic hyperplasia): Code(s): N40.0 - Benign prostatic hyperplasia without lower urinary tract symptoms Status: Acute Assessment and Plan: On Proscar, medication restarted (7) Chronic GERD: Code(s): K21.9 - Gastro-esophageal reflux disease without esophagitis Status: Acute Assessment and Plan: Stable. On Protonix. Plan Feeding:heart healthy diet now, NPO at midnight Analgesia: Tylenol, morphine Thromboembolic prophylaxis: heparin gtt, SCD Ulcer prophylaxis: PPI Lines: PIV Disposition: Home when medically ready. Lives in [place]. Cardiac rehab at [place]. Subjective Date/time seen: 03/11/24 09:32 Interval history: This is a very pleasant 79-year-old gentleman with a past medical history significant for hypertens
--- NOTE | 2024-03-11 09:32 | PM.IMPN ---
Progress Note: A&P Assessment and Plan (1) Acute non-ST elevation myocardial infarction (NSTEMI): Code(s): I21.4 - Non-ST elevation (NSTEMI) myocardial infarction Status: Inactive Assessment and Plan: unstable angina. Patient received nitro paste, ASA 324 mg, metoprolol tartrate 50 mg x 1, and was started on a heparin gtt per cardiology recs. Patient was admitted to IMU. EKG with ST depression and SVT rate 130's at OSH. Patient converted without intervention. Repeat EKG showed 1st degree AV block with NSR and resolution of ST depression. Troponin 106.9--->262.0. Repeat a troponin tonight. Continue heparin gtt despite low platelets of 77 per cardiology. Monitor of s/s of bleeding. Monitor neuro changes and obtain STAT CT head for acute mental status changes. Okay to d/c nitro paste as he no longer is having chest pain. PRN nitro sublingual ordered. Home medications have been reviewed and antihypertensives restarted. Blood pressure 165/84 on admission to this hospital. HR 62 Telemetry ordered PRN EKG for recurrent chest pain Cardiology consulted, recs appreciated. Anticipate cardiac catheterization in the am. NPO at midnight 03/10: No chest pain Heparin gtt until heart cath Cards will provide further recs after cath 03/11: Awaiting transfer to [place] Receiving aspirin 81 mg daily No chest pain (2) TORITO (acute kidney injury): Code(s): N17.9 - Acute kidney failure, unspecified Status: Inactive Assessment and Plan: Cr elevated at 1.8 on admission Gentle fluid hydration with NS at 75 ml per hour repeat BMP in the am strict intake and output 03/10: renal function improving Cr 1.3 today 03/11: Cr 1.4 Monitor BMP If Cr continues to increase can start gentle hydration (3) Chronic lymphocytic leukemia: Code(s): C91.10 - Chronic lymphocytic leukemia of B-cell type not having achieved remission Status: Inactive Assessment and Plan: Follows with [facility] WBC 32.8, Hemoglobin 11.2, Platelets 79 03/11: white count 38.4, hemoglobin 11.4, and platelets 80 (4) Anemia: Code(s): D64.9 - Anemia, unspecified Status: Acute Assessment and Plan: Hemoglobin 11.2 likely secondary to known CLL Add on TIBC, iron, vitamin b12, and folate for am labs no overt bleeding 03/10: iron studies reviewed and are normal hemoglobin 12.5 today (5) Thrombocytopathia: Code(s): D69.1 - Qualitative platelet defects Status: Acute Assessment and Plan: Platelets 93 today likely 2/2 his CLL monitor for bleeding CT head for acute AMS (6) BPH (benign prostatic hyperplasia): Code(s): N40.0 - Benign prostatic hyperplasia without lower urinary tract symptoms Status: Acute Assessment and Plan: On Proscar, medication restarted (7) Chronic GERD: Code(s): K21.9 - Gastro-esophageal reflux disease without esophagitis Status: Acute Assessment and Plan: Stable. On Protonix. Plan Feeding:heart healthy diet now, NPO at midnight Analgesia: Tylenol, morphine Thromboembolic prophylaxis: heparin gtt, SCD Ulcer prophylaxis: PPI Lines: PIV Disposition: Home when medically ready. Lives in [place]. Cardiac rehab at [place]. Subjective Date/time seen: 03/11/24 09:32 Interval history: This is a very pleasant 79-year-old gentleman with a past medical history significant for hypertension, hyperlipidemia, BPH and CLL for which he follows with Dr Sarabia at [facility]. The patient presented to outside hospital emergency room with complaints of left-sided substernal chest pain. 03/10/24: Mr Perez is doing well today. He is nervous about his procedure. He denies chest pain or shortness of breath. Plan for cardiac cath later this morning. 03/11/24: Patient is doing well this morning. He continues to feel well without complaints of chest pain or shortness of breat
[2024-03-11 10:09] LABS: Hematocrit 36.4 % (42.0-52.0); Hemoglobin 11.4 g/dL (14.0-18.0); Immature Platelet Fraction Pct 3.2 % (0.9-11.2); Mean Corpuscular HGB Conc 31.3 g/dl (32-36); Mean Corpuscular Hemoglobin 28.3 pg (26-34); Mean Corpuscular Volume 90.3 fl (80-100); Platelet Count Result 80 k/mm3 (150-375); Red Blood Count 4.03 M/mm3 (4.6-6.20); Red Cell Distribution Width 15.5 % (11.5-14.5); White Blood Count 38.4 K/mm3 (4.5-10.0)
[2024-03-11 10:10] LABS: Alanine Aminotransferase 14 U/L (6-50); Albumin Level 3.7 g/dL (3.5-5.1); Alkaline Phosphatase 50 U/L (38-126); Anion Gap 7 mmol/L (4-12); Aspartate Amino Transferase 30 U/L (17-59); Bilirubin,Total 0.7 mg/dL (0.2-1.3); Blood Urea Nitrogen 26 mg/dL (9-20); Calcium 9.1 mg/dL (8.4-10.2); Carbon Dioxide 25 mmol/L (22-30); Chloride 107 mmol/L (98-107); Estimated CRCL calculation 46 ml/min; Estimated Glomerular Filt Rate 49; Glucose 116 mg/dL (65-110); Potassium 3.7 mmol/L (3.4-5.0); Sodium 139 mmol/L (137-145)
--- NOTE | 2024-03-11 16:29 | PM.DS ---
DS: Admitting Diagnosis Discharge Date 03/11/24 Admitting Diagnosis chest pain DS: Discharge Diagnosis Discharge Diagnosis (1) Acute non-ST elevation myocardial infarction (NSTEMI): Code(s): I21.4 - Non-ST elevation (NSTEMI) myocardial infarction Status: Inactive Assessment and Plan: unstable angina. Patient received nitro paste, ASA 324 mg, metoprolol tartrate 50 mg x 1, and was started on a heparin gtt per cardiology recs. Patient was admitted to IMU. EKG with ST depression and SVT rate 130's at OSH. Patient converted without intervention. Repeat EKG showed 1st degree AV block with NSR and resolution of ST depression. Troponin 106.9--->262.0. Repeat a troponin tonight. Continue heparin gtt despite low platelets of 77 per cardiology. Monitor of s/s of bleeding. Monitor neuro changes and obtain STAT CT head for acute mental status changes. Okay to d/c nitro paste as he no longer is having chest pain. PRN nitro sublingual ordered. Home medications have been reviewed and antihypertensives restarted. Blood pressure 165/84 on admission to this hospital. HR 62 Telemetry ordered PRN EKG for recurrent chest pain Cardiology consulted, recs appreciated. Anticipate cardiac catheterization in the am. NPO at midnight 03/10: No chest pain Heparin gtt until heart cath Cards will provide further recs after cath 03/11: Awaiting transfer to [place] Receiving aspirin 81 mg daily No chest pain (2) TORITO (acute kidney injury): Code(s): N17.9 - Acute kidney failure, unspecified Status: Inactive Assessment and Plan: Cr elevated at 1.8 on admission Gentle fluid hydration with NS at 75 ml per hour repeat BMP in the am strict intake and output 03/10: renal function improving Cr 1.3 today 03/11: Cr 1.4 Monitor BMP If Cr continues to increase can start gentle hydration (3) Chronic lymphocytic leukemia: Code(s): C91.10 - Chronic lymphocytic leukemia of B-cell type not having achieved remission Status: Inactive Assessment and Plan: Follows with [facility] WBC 32.8, Hemoglobin 11.2, Platelets 79 03/11: white count 38.4, hemoglobin 11.4, and platelets 80 (4) Anemia: Code(s): D64.9 - Anemia, unspecified Status: Acute Assessment and Plan: Hemoglobin 11.2 likely secondary to known CLL Add on TIBC, iron, vitamin b12, and folate for am labs no overt bleeding 03/10: iron studies reviewed and are normal hemoglobin 12.5 today (5) Thrombocytopathia: Code(s): D69.1 - Qualitative platelet defects Status: Acute Assessment and Plan: Platelets 93 today likely 2/2 his CLL monitor for bleeding CT head for acute AMS (6) BPH (benign prostatic hyperplasia): Code(s): N40.0 - Benign prostatic hyperplasia without lower urinary tract symptoms Status: Acute Assessment and Plan: On Proscar, medication restarted (7) Chronic GERD: Code(s): K21.9 - Gastro-esophageal reflux disease without esophagitis Status: Acute Assessment and Plan: Stable. On Protonix. Plan Feeding:heart healthy diet now, NPO at midnight Analgesia: Tylenol, morphine Thromboembolic prophylaxis: heparin gtt, SCD Ulcer prophylaxis: PPI Lines: PIV Disposition: Home when medically ready. Lives in [place]. Cardiac rehab at [place]. DS: Summary Hospital Course Reason for hospitalization: NSTEMI Hospital Course: This is a very pleasant 79-year-old gentleman with a past medical history significant for hypertension, hyperlipidemia, BPH and CLL for which he follows with Dr Sarabia at [facility]. The patient presented to outside hospital emergency room with complaints of left-sided substernal chest pain. 03/10/24: Mr Perez is doing well today. He is nervous about his procedure. He denies chest pain or shortness of breath. Plan for cardiac cath later this morning. 03/11/24: Sharon
--- NOTE | 2024-03-11 16:29 | P.DS_ITS ---
DS: Admitting Diagnosis Discharge Date 03/11/24 Admitting Diagnosis chest pain DS: Discharge Diagnosis Discharge Diagnosis (1) Acute non-ST elevation myocardial infarction (NSTEMI): Code(s): I21.4 - Non-ST elevation (NSTEMI) myocardial infarction Status: Inactive Assessment and Plan: unstable angina. Patient received nitro paste, ASA 324 mg, metoprolol tartrate 50 mg x 1, and was started on a heparin gtt per cardiology recs. Patient was admitted to IMU. * EKG with ST depression and SVT rate 130's at OSH. Patient converted without intervention. Repeat EKG showed 1st degree AV block with NSR and resolution of ST depression. * Troponin 106.9--->262.0. Repeat a troponin tonight. * Continue heparin gtt despite low platelets of 77 per cardiology. Monitor of s/s of bleeding. Monitor neuro changes and obtain STAT CT head for acute mental status changes. * Okay to d/c nitro paste as he no longer is having chest pain. PRN nitro sublingual ordered. * Home medications have been reviewed and antihypertensives restarted. Blood pressure 165/84 on admission to this hospital. HR 62 * Telemetry ordered * PRN EKG for recurrent chest pain * Cardiology consulted, recs appreciated. Anticipate cardiac catheterization in the am. * NPO at midnight 03/10: * No chest pain * Heparin gtt until heart cath * Cards will provide further recs after cath 03/11: * Awaiting transfer to [place] * Receiving aspirin 81 mg daily * No chest pain (2) TORITO (acute kidney injury): Code(s): N17.9 - Acute kidney failure, unspecified Status: Inactive Assessment and Plan: Cr elevated at 1.8 on admission * Gentle fluid hydration with NS at 75 ml per hour * repeat BMP in the am * strict intake and output 03/10: * renal function improving * Cr 1.3 today 03/11: * Cr 1.4 * Monitor BMP * If Cr continues to increase can start gentle hydration (3) Chronic lymphocytic leukemia: Code(s): C91.10 - Chronic lymphocytic leukemia of B-cell type not having achieved remission Status: Inactive Assessment and Plan: Follows with [facility] * WBC 32.8, Hemoglobin 11.2, Platelets 79 03/11: * white count 38.4, hemoglobin 11.4, and platelets 80 (4) Anemia: Code(s): D64.9 - Anemia, unspecified Status: Acute Assessment and Plan: Hemoglobin 11.2 * likely secondary to known CLL * Add on TIBC, iron, vitamin b12, and folate for am labs * no overt bleeding 6/3: * iron studies reviewed and are normal * hemoglobin 12.5 today (5) Thrombocytopathia: Code(s): D69.1 - Qualitative platelet defects Status: Acute Assessment and Plan: Platelets 93 today * likely 2/2 his CLL * monitor for bleeding * CT head for acute AMS (6) BPH (benign prostatic hyperplasia): Code(s): N40.0 - Benign prostatic hyperplasia without lower urinary tract symptoms Status: Acute Assessment and Plan: On Proscar, medication restarted (7) Chronic GERD: Code(s): K21.9 - Gastro-esophageal reflux disease without esophagitis Status: Acute Assessment and Plan: Stable. On Protonix. Plan Feeding:heart healthy diet now, NPO at midnight Analgesia: Tylenol, morphine Thromboembolic prophylaxis: heparin gtt, SCD Ulcer prophylaxis: PPI Lines: PIV Disposition: Home when medically ready. Lives in [place]. Cardiac rehab at [place]. DS: Summary Hospital Course Reason for hospitalization:
[2024-03-11] MEDS: METOPROLOL SUCCINATE EXT REL 25 MG TABCR PO (20:08)
[2024-03-11] MEDS: NIFEdipine 30 MG TAB.ER.24 60 MG PO (20:08)
--- NOTE | 2024-03-11 21:24 | PC.NURSE ---
Pt to be transferred to [facility] for high risk PCI. Report called to TEJA Shah at [phone]. Pt is going to room [address] [place] [address] on site to transfer pt. Family aware. Dr. Taylor is accepting physician.
--- NOTE | 2024-03-20 12:47 | PM.TDS ---
Transfer Discharge Sum: Prov Provider Date of admission: 03/10/24 12:33 Primary care physician: Kyle Hendricks MD Admitting clinician: Nakul Zhang MD Consults: 03/09/24 Consult to Physician Routine Comment: Consulting Provider: Isha Brown Reason for consultation: nstemi Has provider been notified: Yes 03/09/24 16:07 Consult to Physician Routine Comment: Consulting Provider: Ana Galaviz call center coordinator/MD group to consult: cardiology--cards was notified of patient transfer but they may not realize he is here yet. Reason for consultation: NSTEMI Has provider been notified: Yes DS: Admitting Diagnosis Discharge Date 03/11/24 Admitting Diagnosis chest pain DS: Discharge Diagnosis Discharge Diagnosis (1) Acute non-ST elevation myocardial infarction (NSTEMI): Code(s): I21.4 - Non-ST elevation (NSTEMI) myocardial infarction Status: Inactive (2) TORITO (acute kidney injury): Code(s): N17.9 - Acute kidney failure, unspecified Status: Inactive (3) Chronic lymphocytic leukemia: Code(s): C91.10 - Chronic lymphocytic leukemia of B-cell type not having achieved remission Status: Inactive (4) Anemia: Code(s): D64.9 - Anemia, unspecified Status: Acute (5) Thrombocytopathia: Code(s): D69.1 - Qualitative platelet defects Status: Acute (6) BPH (benign prostatic hyperplasia): Code(s): N40.0 - Benign prostatic hyperplasia without lower urinary tract symptoms Status: Acute (7) Chronic GERD: Code(s): K21.9 - Gastro-esophageal reflux disease without esophagitis Status: Acute Transfer Discharge Sum: Med Medications Active and Home Medications: Home Medications cholecalciferol (vitamin D3) 25 mcg/drop (1,000 unit/drop) oral drops 25 mcg PO BID 01/01/23 [History Confirmed 03/09/24] finasteride 5 mg tablet 5 mg PO DAILY 01/01/23 [History Confirmed 03/09/24] hydrochlorothiazide 25 mg tablet 25 mg PO DAILY 01/01/23 [History Confirmed 03/09/24] losartan 100 mg tablet 100 mg PO DAILY 01/01/23 [History Confirmed 03/09/24] nifedipine 30 mg tablet,extended release 60 mg PO HS 01/01/23 [History Confirmed 03/09/24] rosuvastatin 20 mg tablet 20 mg PO DAILY 01/01/23 [History Confirmed 03/09/24] vit Z-rsoxnii-hhkswgycg-rutin-[id number] 500 mg-50 mg-25 mg-40 mg tablet (Bioflex) 2 tablet PO DAILY 01/01/23 [History Confirmed 03/09/24] aspirin 325 mg tablet 325 mg PO HS 01/16/23 [History Confirmed 03/09/24] coenzyme Q10 100 mg capsule (CoQ-10) 100 mg PO DAILY 01/16/23 [History Confirmed 03/09/24] metoprolol succinate 25 mg tablet,extended release 24 hr 25 mg PO HS 01/16/23 [History Confirmed 03/09/24] pantoprazole 40 mg tablet,delayed release 40 mg PO DAILY 01/16/23 [History Confirmed 03/09/24] potassium chloride 10 mEq tablet,extended release(part/cryst) (Klor-Con M) 10 meq PO DAILY 01/16/23 [History Confirmed 03/09/24] Transfer Discharge Sum: Hosp Hospital Course Hospital course: This is a very pleasant 79-year-old gentleman with a past medical history significant for hypertension, hyperlipidemia, BPH and CLL for which he follows with Dr Sarabia at [facility]. The patient presented to outside hospital emergency room with complaints of left-sided substernal chest pain. 03/10/24: Mr Perez is doing well today. He is nervous about his procedure. He denies chest pain or shortness of breath. Plan for cardiac cath later this morning. 03/11/24: Patient is doing well this morning. He continues to feel well without complaints of chest pain or shortness of breath. He had his cardiac catheterization yesterday which is concerning for 3 vessel occlusion 95% blockage. The patient is currently waiting for a bed at [facility] for consult to Cardiothoracic surgery. Time Spent with Patient Time attestation: Total time spent providing and/or coordinating transfer services:65 Exam Narrative: General: we
== END 2024-03-11 21:32 | disposition short-term general hospital (02) | DRG 281 ==
PROVIDERS: Internal Medicine; Specialist; Admitting Provider Hospitalist; PCP Internal Medicine; Visit Provider Nurse Practitioner Acute Care
PROC: 4A023N7 Measurement of Cardiac Sampling and Pressure, Left Heart, Percutaneous Approach (ICD-10-PCS; CPT 93454; principal; 2024-03-10 11:30)
DX: I21.4 Non-ST elevation (NSTEMI) myocardial infarction (principal); C91.10 Chronic lymphocytic leukemia of B-cell type not having achieved remission; N17.9 Acute kidney failure, unspecified; I24.9 Acute ischemic heart disease, unspecified; D63.8 Anemia in other chronic diseases classified elsewhere; D69.1 Qualitative platelet defects; E78.5 Hyperlipidemia, unspecified; I10 Essential (primary) hypertension; K21.9 Gastro-esophageal reflux disease without esophagitis; M19.90 Unspecified osteoarthritis, unspecified site; N40.0 Benign prostatic hyperplasia without lower urinary tract symptoms; Z86.718 Personal history of other venous thrombosis and embolism; Z79.82 Long term (current) use of aspirin; Z96.651 Presence of right artificial knee joint; Z96.612 Presence of left artificial shoulder joint; Z96.611 Presence of right artificial shoulder joint; Z87.891 Personal history of nicotine dependence
CPT/HCPCS: 36415; 80053; 80061; 82607; 82746; 83540; 83550; 83735; 84484; 85025; 85027; 85055; 85610; 85730; 93005; 93306; 93454; A9270; C1887; C1894; G0378; J0461; J0583; J1644; J2250; J3010; J7030; J7040

== ENCOUNTER 2024-04-16 10:06 | Outpatient (CLI) | payer MEDICARE, OTHER, SELFPAY ==
--- NOTE | ~2024-04-16 | CT_ITS ---
Non-contrast CT scan of the Abdomen and Pelvis Clinical indication: Hematuria, proteinuria Technique: 2.5 mm axial scans were obtained through the abdomen and pelvis without intravenous or or al contrast. Dose reduction technique was used on this scan by utilizing automated exposure control a nd iterative reconstruction technique. The dose-length product (DLP) was 317.46 mGy-cm. Findings: Images through the lung bases reveal small left pleural effusion with left basilar atelect atic change. Small pericardial effusion also present. Punctate nonobstructing left renal stones present. Left renal cyst present. Right kidney unremarkable . No hydronephrosis. The liver, pancreas, gallbladder, and adrenals appear normal. There is prominent splenomegaly, spleen measuring at least 19.2 cm in length. There are atherosclerotic calcifications of the aorta. There is no evidence of bowel obstruction. There is bulky, extensive pelvic lymphadenopathy, along th e bilateral pelvic sidewalls and at the common femoral vessel regions. There is additional stents of lymphadenopathy in the infrarenal para-aortic/retroperitoneal regions, and along the common iliac chanda ins bilaterally. Largest nay mass measures 4.5 x 3.5 cm (axial image 160). Images through the pelvis were performed. There is no evidence of ascites or lymphadenopathy. Urinary bladder unremarkable. Prostate gland is markedly enlarged. There are bilateral L5 pars interarticularis defects, with 15 mm anterolisthesis of L5 over S1. Impression: Extensive retroperitoneal and pelvic lymphadenopathy, as detailed above, suspicious for lymphoma, or possibly metastatic disease. Tissue sampling advised to establish a histologic diagnosis. Marked specifically, which could reflect lymphomatous involvement. Small left pleural effusion and small pericardial effusion. Small nonobstructing left renal stones. Reviewed, dictated and finalized at location . Impression: Extensive retroperitoneal and pelvic lymphadenopathy, as detailed above, suspic ious for lymphoma, or possibly metastatic disease. Tissue sampling advised to e stablish a histologic diagnosis. Marked specifically, which could reflect lymphomatous involvement. Small left pleural effusion and small pericardial effusion. Small nonobstructing left renal stones.
== END 2024-04-16 10:07 | disposition home or self-care (01) ==
LOC: CHSIMG 10:06
PROVIDERS: PCP Internal Medicine; Visit Provider Internal Medicine
DX: R31.9 Hematuria, unspecified (principal); R80.9 Proteinuria, unspecified; R59.0 Localized enlarged lymph nodes; J90 Pleural effusion, not elsewhere classified; I31.39 Other pericardial effusion (noninflammatory); N20.0 Calculus of kidney
CPT/HCPCS: 74176

== ENCOUNTER 2024-04-19 10:31 | Emergency (ER) | payer MEDICARE, OTHER, SELFPAY ==
[2024-04-19] VITALS (22 sets, daily range): BP systolic 144–157; BP diastolic 93–119; PULSE 87–147; RESP 11–26; TEMP 36.7; O2SAT 91–95
--- NOTE | ~2024-04-19 | XR_ITS ---
EXAMINATION: XR chest 1V portable DATE: 04/19/2024 11:20 INDICATION: Palpitations and arrhythmia post coronary artery bypass grafting. TECHNIQUE: frontal view of the chest was obtained. COMPARISON: Chest radiograph dated 03/09/2024 FINDINGS: Right lung remains clear. There are increasing opacities in the left lower lung zone with consolidati on medially and with suggestion of small left pleural effusion tracking along the major fissure. No p neumothorax or right-sided pleural effusion. Cardiomegaly. There are new surgical clips along the lef t side of the mediastinum consistent with reported coronary artery bypass grafting. There is also a n ew left atrial appendage occlusion clip. Bilateral shoulder arthroplasties, likely reverse but incomp letely visualized on the left. IMPRESSION: 1. Increasing opacity left lower lung zone consistent with small left pleural effusion and associated left lower lobar atelectasis and/or pneumonia. Reviewed, dictated and finalized at location A. IMPRESSION: 1. Increasing opacity left lower lung zone consistent with small left pleural e ffusion and associated left lower lobar atelectasis and/or pneumonia.
--- NOTE | 2024-04-19 10:35 | ECG_ITS ---
Test Date: 2024-04-19 10:41:47 Measurements Intervals [place] Rate: 143 P: 0 NH: 0 QRS: -52 QRSD: 116 T: 133 QT: 317 QTc: 490 Interpretive Statements SUPRAVENTRICULAR TACHYCARDIA LEFT ANTERIOR FASCICULAR BLOCK CANNOT R/O SEPTAL INFARCT, AGE INDETERMINATE BORDERLINE ST-T WAVE ABNORMALITY- HIGH LATERAL LEADS BASELINE WANDER- V3 ABNORMAL ECG Compared to ECG 03/10/2024 09:55:30 SUPRAVENTRICULAR TACHYCARDIA NOW PRESENT Left anterior fascicular block now present Electronically Signed On 04-19-2024 13:07:54 CDT by Tho Mendoza D.O.
--- NOTE | 2024-04-19 10:58 | ED.ARRPALP ---
HPI - Arrhythmia/Palpitations General Chief Complaint: Arrhythmia/Palpitations Stated Complaint: tachycardia Source: patient Mode of arrival: ambulatory Limitations: no limitations History of Present Illness HPI narrative: 79-year-old male with a history of smoking, hypertension, dyslipidemia, BPH, CKD, CLL, DVT presented to this ER on 03/09/2000 and noted to have non STEMI and supraventricular tachycardia. The patient was transferred to [facility] where he had a cardiac catheterization which revealed a three-vessel coronary artery disease. The patient had an echo which revealed a normal EF with diastolic Dysfunction. The patient was transferred to [facility] where he had a CABG 03/14/24 The patient presents to the ED with -- palpitation. EKG revealed supraventricular tachycardia/ atrial flutter with a ventricular rate of 143. While waiting in the ED the patient converted to normal sinus rhythm with the rate in the 90s. The patient denied any chest pain or shortness of breath. MD complaint: rapid heart beat and heart racing Duration: constant Severity: mild Context: occurred during rest Associated symptoms: denies other symptoms Related Data Home Medications Medication Instructions Recorded Confirmed finasteride 5 mg tablet 5 mg PO DAILY 01/01/23 04/19/24 rosuvastatin 20 mg tablet 20 mg PO DAILY 01/01/23 04/19/24 vit 2 tablet PO DAILY 01/01/23 04/19/24 V-ysyncmd-podnovbhk-rutin-fqnb162 500 mg-50 mg-25 mg-40 mg tablet (Bioflex) coenzyme Q10 100 mg capsule 100 mg PO DAILY 01/16/23 04/19/24 (CoQ-10) metoprolol succinate 25 mg 50 mg PO HS 01/16/23 04/19/24 tablet,extended release 24 hr pantoprazole 40 mg tablet,delayed 40 mg PO DAILY 01/16/23 04/19/24 release aspirin 81 mg tablet,delayed 81 mg PO DAILY 04/19/24 04/19/24 release tamsulosin 0.4 mg capsule 0.4 mg PO DAILY 04/19/24 04/19/24 Allergies Allergy/AdvReac Type Severity Reaction Status Date / Time Penicillins Allergy Unknown Hives Verified 02/14/24 08:06 Review of Systems Review of Systems: All systems reviewed & are unremarkable except as noted in HPI and below Constitutional: Constitutional: Reports as per HPI and Reports no additional constitutional complaints Eyes: Eyes: Reports as per HPI and Reports no additional eye complaints ENT: Reports system reviewed and no additional complaints, except as documented and Reports as per HPI Cardiovascular: Cardiovascular: Reports as per HPI, Reports no additional cardiovascular complaints and Reports rapid heart rate Respiratory: Respiratory: Reports as per HPI and Reports no additional respiratory complaints Gastrointestinal: Gastrointestinal: Reports as per HPI and Reports no additional gastrointestinal complaints Genitourinary: Genitourinary: Reports no additional male genitourinary complaints and Reports as per HPI Musculoskeletal: Musculoskeletal: Reports no additional musculoskeletal complaints and Reports as per HPI Integumentary/Breasts: Skin/Breast: Reports system reviewed and no additional complaints, except as docu and Reports as per HPI Neurologic: Reports system reviewed and no additional complaints, except as documented and Reports as per HPI Psychiatric: Psychiatric: Reports no additional psychiatric complaints and Reports as per HPI Endocrine: Endocrine: Reports no additional endocrine complaints and Reports as per HPI Hematologic/Lymphatic: Hematologic/Lymphatic: Reports no additional hematologic/lymphatic complaints and Reports as per HPI Allergic/Immunologic: Allergic/Immunologic: Reports no additional allergic/immunologic complaints and Reports as per HPI [facility] Past Medical History Medical History (Updated 04/19/24 @ 12:52 by Jonathon Perez MD) Aftercare following right shoulder joint replacement surgery Arthritis BPH (benign prostatic hyperplasia) Chronic GERD Chronic lymphocytic leukemia DVT (deep venous thrombosis) Hyperlipem
[2024-04-19 11:29] LABS: Hematocrit 33.2 % (37.0-46.0); Mean Corpuscular HGB Conc 30.1 g/dL (32-36); Mean Corpuscular Hemoglobin 28.2 pg (27.0-31.0); Mean Corpuscular Volume 93.5 fL (78.0-102.0); Mean Platelet Volume 9.7 fl (8.7-11.0); Platelet Count Result 125 K/mm3 (150-420); Red Blood Count 3.55 M/mm3 (4.70-6.10); Red Cell Distribution Width 14.8 % (11.6-14.4)
[2024-04-19 11:42] LABS: White Blood Count 45.3 K/mm3 (4.8-10.8)
[2024-04-19 11:44] LABS: Partial Thromboplastin Time 24.4 Sec (23.9-30.70)
[2024-04-19] MEDS: METOPROLOL TARTRATE INJ 5 MG/5 ML VIAL 2.5 MG IV PUSH (11:47)
--- NOTE | 2024-04-19 11:48 | PC.NURSE ---
pt had cabg at [facility] on 03-14-24 per daughter, yasmani. has appt with dr bang , cardiology [facility] on 04-25.
[2024-04-19 11:55] LABS: Alanine Aminotransferase 20 U/L (16-63); Albumin Level 3.4 g/dL (3.4-5.0); Alkaline Phosphatase 80 U/L (46-116); Anion Gap 12 mmol/L (4-12); Aspartate Amino Transferase 26 U/L (15-37); Bilirubin,Total 0.5 mg/dL (0.00-1.00); Blood Urea Nitrogen 22 mg/dL (7-18); Calcium 9.2 mg/dL (8.5-10.1); Carbon Dioxide 26 mmol/L (21-32); Chloride 104 mmol/L (98-108); Estimated CRCL calculation 45 ml/min; Estimated Glomerular Filt Rate 48; Glucose 127 mg/dL (70-99); NT Pro B Type Natriuretic Pept 6105 pg/mL (0-450); Osmolality Calculated 299 mOsm/kg (285-295); Sodium 142 mmol/L (136-145); Total Protein 6.7 g/dL (6.4-8.2); Troponin I 34.7 ng/L (0.00-60.4)
--- NOTE | 2024-04-19 11:56 | PC.NURSE ---
pt resting per cot. dr villalobos in room with pt and daughter.
[2024-04-19 11:57] LABS: Band Neutrophils Percent 0 % (0-6); Eosinophils Absolute Manual 0.45 K/mm3 (0.02-0.50); Eosinophils Percent Manual 1 % (1-6); Lymphocytes Absolute Manual 41.22 K/mm3 (1.1-4.5); Lymphocytes Percent Manual 91 % (18-44); Neutrophils Absolute Manual 3.62 K/mm3 (1.3-6.7); Neutrophils Percent Manual 8 % (46-73); Platelet Estimate Adequate (Adequate); Smudge Cells PRESENT; Total Cells Counted 100
[2024-04-19 11:58] LABS: Atypical Lymphocytes Present; Schistocytes None Seen
--- NOTE | 2024-04-19 12:31 | PC.NURSE ---
AWAITING CALL FOR CARDIOLOGY. PT HAS NO COMPLAINTS AND WANTING TO GO HOME.
== END 2024-04-19 13:16 | disposition home or self-care (01) ==
PROVIDERS: Emergency Provider Internal Medicine Critical Care Medicine; PCP Internal Medicine
DX: C91.10 Chronic lymphocytic leukemia of B-cell type not having achieved remission (principal); I48.91 Unspecified atrial fibrillation; E78.5 Hyperlipidemia, unspecified; I12.9 Hypertensive chronic kidney disease with stage 1 through stage 4 chronic kidney disease, or unspecified chronic kidney disease; N18.31 Chronic kidney disease, stage 3a; Z86.718 Personal history of other venous thrombosis and embolism; Z87.891 Personal history of nicotine dependence; Z95.1 Presence of aortocoronary bypass graft; Z79.899 Other long term (current) drug therapy
CPT/HCPCS: 36415; 71045; 80053; 83605; 83880; 84484; 85025; 85610; 85730; 93005; 96374; 99284

== ENCOUNTER 2024-04-26 00:57 | Emergency (ER) | payer MEDICARE, OTHER, SELFPAY ==
--- NOTE | ~2024-04-26 | XR_ITS ---
XR chest 1V portable 04/26/2024 01:20 Indication: Arrhythmia Procedure: AP portable Comparison: Comparison to multiple prior studies sequentially, with oldest reviewed study dated 02/21. Findings: Cardiomegaly with interstitial edema. Small left pleural effusion. There is a left atrial c losure device. There are arthroplasty changes in both shoulders. Impression: 1: Cardiomegaly with interstitial edema. Reviewed, dictated and finalized at location B. Impression: 1: Cardiomegaly with interstitial edema.
[2024-04-26 00:57] VITALS: BP 141/109; PULSE 151; PULSE 156; RESP 23; TEMP 36; O2SAT 98
--- NOTE | 2024-04-26 01:02 | ECG_ITS ---
Test Date: 2024-04-26 01:05:29 Measurements Intervals [place] Rate: 151 P: 0 MT: 0 QRS: -60 QRSD: 111 T: 110 QT: 309 QTc: 490 Interpretive Statements SUPRAVENTRICULAR TACHYCARDIA, CONSIDER ATRIAL FLUTTER LEFT ANTERIOR FASCICULAR BLOCK ANTEROSEPTAL MYOCARDIAL INFARCTION , OF INDETERMINATE AGE BORDERLINE ST-T WAVE ABNORMALITY- HIGH LATERAL LEADS ABNORMAL ECG Compared to ECG 04/19/2024 10:41:47 NO SIGNIFICANT CHANGE Electronically Signed On 04-26-2024 08:58:37 CDT by Tho Mendoza D.O.
[2024-04-26] MEDS: dilTIAZem HCl INJ 25 MG/5 ML VIAL (01:23)
[2024-04-26 01:30] VITALS: BP 137/89; PULSE 97; RESP 20; O2SAT 93
--- NOTE | 2024-04-26 01:30 | ECG_ITS ---
Test Date: 2024-04-26 01:30:39 Measurements Intervals [place] Rate: 99 P: 52 UT: 209 QRS: -55 QRSD: 109 T: 90 QT: 384 QTc: 494 Interpretive Statements SINUS RHYTHM WITH FIRST DEGREE AV BLOCK POSSIBLE LEFT ATRIAL ENLARGEMENT LEFT ANTERIOR FASCICULAR BLOCK CANNOT R/O SEPTAL INFARCT, AGE INDETERMINATE BORDERLINE ST-T WAVE ABNORMALITY- HIGH LATERAL LEADS BASELINE ARTIFACT- I, II, III, AVF ABNORMAL ECG Compared to ECG 04/26/2024 01:05:29 SINUS RHYTHM NOW PRESENT Electronically Signed On 04-26-2024 09:00:04 CDT by Tho Mendoza D.O.
[2024-04-26 01:41] LABS: Hematocrit 33.7 % (37.0-46.0); Hemoglobin 9.8 g/dL (12.4-15.3); Mean Corpuscular HGB Conc 29.1 g/dL (32-36); Mean Corpuscular Hemoglobin 27.2 pg (27.0-31.0); Mean Corpuscular Volume 93.6 fL (78.0-102.0); Mean Platelet Volume 10.4 fl (8.7-11.0); Platelet Count Result 140 K/mm3 (150-420); Red Cell Distribution Width 14.8 % (11.6-14.4)
[2024-04-26 01:42] LABS: White Blood Count 50.3 K/mm3 (4.8-10.8)
--- NOTE | 2024-04-26 01:59 | ED.ARRPALP ---
HPI - Arrhythmia/Palpitations General Chief Complaint: Arrhythmia/Palpitations Stated Complaint: heart palpitations Time Seen by Provider: 04/26/24 01:01 Source: patient and family Mode of arrival: ambulatory Limitations: no limitations History of Present Illness HPI narrative: Patient is a 79-year-old male with significant past medical history that presents today for palpitations. And tachycardia. Patient has a history of a CABG that was done within the last few months. He sure that he had CABG and 2 atrial fibrillation he had the atrial fibrillation not soon after this and was sent home on metoprolol 50 mg b.i.d. and on a blood thinner. He is not sure whether his brawny and had chance 8 yet the get his a office and get the blood thinner. He presents today he was in atrial fibrillation with rapid ventricular response. He does not remember or blood thinner he was put on as he has not had a chance to pick it up from [facility] yet. complaint: rapid heart beat, palpitations and irregular heart beat Onset (ago): minute(s) Time: 02:03 Duration: constant Context: occurred during rest Arrhythmia history: atrial fibrillation Associated symptoms: denies other symptoms Related Data Home Medications Medication Instructions Recorded Confirmed finasteride 5 mg tablet 5 mg PO DAILY 01/01/23 04/26/24 rosuvastatin 20 mg tablet 20 mg PO DAILY 01/01/23 04/26/24 vit 2 tablet PO DAILY 01/01/23 04/26/24 L-ekichek-zpesfnjdz-rutin-gwyu591 500 mg-50 mg-25 mg-40 mg tablet (Bioflex) coenzyme Q10 100 mg capsule 100 mg PO DAILY 01/16/23 04/26/24 (CoQ-10) metoprolol succinate 25 mg 50 mg PO HS 01/16/23 04/26/24 tablet,extended release 24 hr pantoprazole 40 mg tablet,delayed 40 mg PO DAILY 01/16/23 04/26/24 release aspirin 81 mg tablet,delayed 81 mg PO DAILY 04/19/24 04/26/24 release tamsulosin 0.4 mg capsule 0.4 mg PO DAILY 04/19/24 04/26/24 amiodarone 200 mg tablet 200 mg PO DAILY 04/26/24 04/26/24 Allergies Allergy/AdvReac Type Severity Reaction Status Date / Time Penicillins Allergy Unknown Hives Verified 04/26/24 01:39 Review of Systems Review of Systems: All systems reviewed & are unremarkable except as noted in HPI and below Constitutional: Constitutional: Reports as per HPI Eyes: Eyes: Reports no additional eye complaints ENT: Reports system reviewed and no additional complaints, except as documented Cardiovascular: Cardiovascular: Reports as per HPI Respiratory: Respiratory: Reports no additional respiratory complaints Gastrointestinal: Gastrointestinal: Reports no additional gastrointestinal complaints Genitourinary: Genitourinary: Reports no additional male genitourinary complaints Musculoskeletal: Musculoskeletal: Reports no additional musculoskeletal complaints Integumentary/Breasts: Skin/Breast: Reports system reviewed and no additional complaints, except as docu Neurologic: Reports system reviewed and no additional complaints, except as documented Psychiatric: Psychiatric: Reports no additional psychiatric complaints Endocrine: Endocrine: Reports no additional endocrine complaints Hematologic/Lymphatic: Hematologic/Lymphatic: Reports no additional hematologic/lymphatic complaints Allergic/Immunologic: Allergic/Immunologic: Reports no additional allergic/immunologic complaints PMFSH Past Medical History Medical History Aftercare following right shoulder joint replacement surgery Arthritis BPH (benign prostatic hyperplasia) Chronic GERD Chronic lymphocytic leukemia DVT (deep venous thrombosis) Hyperlipemia Hypertension Kidney stone Overweight (BMI 25.0-29.9) Thrombocytopathia Surgical History Surgical History History of reverse total replacement of left shoulder joint (~02/13/23) History of reverse total replacement of right shoulder joint Hx of CABG Presence of right artificial k
[2024-04-26 02:00] VITALS: BP 133/85; PULSE 93; RESP 18; O2SAT 92
[2024-04-26 02:04] LABS: Band Neutrophils Percent 0 % (0-6); Lymphocytes Absolute Manual 45.27 K/mm3 (1.1-4.5); Lymphocytes Percent Manual 90 % (18-44); Monocytes Percent Manual 2 % (3-9); Neutrophils Absolute Manual 4.02 K/mm3 (1.3-6.7); Neutrophils Percent Manual 8 % (46-73); Total Cells Counted 100
[2024-04-26 02:05] LABS: Alanine Aminotransferase 50 U/L (16-63); Albumin Level 3.2 g/dL (3.4-5.0); Alkaline Phosphatase 148 U/L (46-116); Anion Gap 9 mmol/L (4-12); Aspartate Amino Transferase 69 U/L (15-37); Bilirubin,Total 0.4 mg/dL (0.00-1.00); Blood Urea Nitrogen 31 mg/dL (7-18); Calcium 8.8 mg/dL (8.5-10.1); Carbon Dioxide 25 mmol/L (21-32); Chloride 107 mmol/L (98-108); Estimated CRCL calculation 43 ml/min; Estimated Glomerular Filt Rate 43; Glucose 156 mg/dL (70-99); NT Pro B Type Natriuretic Pept 14078 pg/mL (0-450); Osmolality Calculated 301 mOsm/kg (285-295); Platelet Estimate Slightly Decreased (Adequate); Sodium 141 mmol/L (136-145); Total Protein 6.6 g/dL (6.4-8.2); Troponin I 47.4 ng/L (0.00-60.4)
[2024-04-26 02:06] LABS: Schistocytes None Seen
[2024-04-26 02:38] VITALS: PULSE 88
[2024-04-26] MEDS: FUROSEMIDE INJ 20 MG/2 ML VIAL IV PUSH (02:38)
[2024-04-26] MEDS: METOPROLOL TARTRATE 25 MG TABLET (02:38)
[2024-04-26] MEDS: APIXABAN 2.5 MG TABLET 5 MG PO (02:38)
[2024-04-26 02:50] VITALS: BP 132/85; PULSE 90; RESP 18; O2SAT 92
[2024-04-26 03:00] VITALS: PULSE 88
== END 2024-04-26 03:00 | disposition home or self-care (01) ==
PROVIDERS: Emergency Provider Family Medicine; PCP Internal Medicine
DX: I48.0 Paroxysmal atrial fibrillation (principal); E78.5 Hyperlipidemia, unspecified; I10 Essential (primary) hypertension; Z95.1 Presence of aortocoronary bypass graft; Z79.899 Other long term (current) drug therapy; Z79.82 Long term (current) use of aspirin; Z87.891 Personal history of nicotine dependence
CPT/HCPCS: 36415; 71045; 80053; 83880; 84484; 85025; 93005; 96374; 96375; 99284; A9270; J1940; J7030

== ENCOUNTER 2024-05-06 09:30 | Outpatient (CLI) | payer MEDICARE, OTHER, SELFPAY ==
--- NOTE | ~2024-05-06 | XR_ITS ---
XR chest 2V Ordering provider: Reena Liz, TUBE WRAPPER History: 79 years Male with . QuadBypass X 5 weeks ago - SOB, BLE swelling, weakness . Comparison: April 26, 2024 FINDINGS: MEDIASTINUM: The cardiac silhouette is not enlarged. LUNGS: No pneumothorax. Opacification in the right upper lobe area with bibasilar opacification is seen. Left pleural effusio n is seen. The area of the right upper lobe may represent pneumonia or a mass. Follow-up to resolutio n is advised. OTHER: No free air under the diaphragm. Degenerative spine. Bilateral shoulder arthroplasty. IMPRESSION: No significant change from previous examination. Reviewed, dictated and finalized at location A.
[2024-05-06 10:22] LABS: Hematocrit 33.4 % (37.0-46.0); Hemoglobin 9.7 g/dL (12.4-15.3); Mean Corpuscular Hemoglobin 26.9 pg (27.0-31.0); Mean Corpuscular Volume 92.5 fL (78.0-102.0); Mean Platelet Volume 10.5 fl (8.7-11.0); Platelet Count Result 130 K/mm3 (150-420); Red Blood Count 3.61 M/mm3 (4.70-6.10); Red Cell Distribution Width 15.2 % (11.6-14.4)
[2024-05-06 10:31] LABS: White Blood Count 57.5 K/mm3 (4.8-10.8)
[2024-05-06 10:40] LABS: Alanine Aminotransferase 44 U/L (16-63); Albumin Level 3.4 g/dL (3.4-5.0); Alkaline Phosphatase 90 U/L (46-116); Anion Gap 8 mmol/L (4-12); Aspartate Amino Transferase 39 U/L (15-37); Bilirubin,Total 0.5 mg/dL (0.00-1.00); Blood Urea Nitrogen 34 mg/dL (7-18); Calcium 9.2 mg/dL (8.5-10.1); Carbon Dioxide 27 mmol/L (21-32); Chloride 108 mmol/L (98-108); Estimated Glomerular Filt Rate 37; Glucose 103 mg/dL (70-99); NT Pro B Type Natriuretic Pept 11706 pg/mL (0-450); Osmolality Calculated 303 mOsm/kg (285-295); Potassium 3.9 mmol/L (3.5-5.1); Sodium 143 mmol/L (136-145); Total Protein 6.5 g/dL (6.4-8.2)
== END 2024-05-06 09:31 | disposition home or self-care (01) ==
PROVIDERS: PCP Internal Medicine; Visit Provider Nurse Practitioner Family
DX: R06.02 Shortness of breath (principal); M79.89 Other specified soft tissue disorders; I50.9 Heart failure, unspecified; R63.5 Abnormal weight gain
CPT/HCPCS: 36415; 71046; 80053; 83880; 85027

== ENCOUNTER 2024-05-06 11:44 | Inpatient (IN) | payer MEDICARE, OTHER, SELFPAY ==
[2024-05-06] VITALS (12 sets, daily range): BP systolic 137–156; BP diastolic 82–94; PULSE 77–109; RESP 16–24; TEMP 36.3–36.6; O2SAT 95–100; BMI 27.0
--- NOTE | ~2024-05-06 | XR_ITS ---
Portable chest x-ray Comparison: 05/06/2024 Clinical History: Low effusion Findings: Small left pleural effusion is unchanged. Stable hazy airspace opacity/consolidation the r ight upper lobe.. Cardiomediastinal silhouette is stable. Bones and soft tissues are unremarkable, a side from bilateral shoulder arthroplasties. Impression: Hazy right upper lobe airspace consolidation, suspicious for pneumonia. Small left pleural effusion. Reviewed, dictated and finalized at location . Impression: Hazy right upper lobe airspace consolidation, suspicious for pneumonia. Small left pleural effusion.
--- NOTE | ~2024-05-06 | US_ITS ---
EXAMINATION: US venous doppler [facility] DATE: 05/07/2024 11:26 INDICATION: Lower limb edema. TECHNIQUE: Grayscale ultrasound images without and with compression and Doppler ultrasound images of the bilateral lower extremity veins were obtained. COMPARISON: None. FINDINGS: The visualized portions of right common femoral vein, profunda (deep) femoral vein, femoral vein, pop liteal vein, peroneal veins, posterior tibial veins, and greater saphenous vein outflow are patent. The visualized portions of left common femoral vein, profunda femoral vein, femoral vein, popliteal v ein, peroneal veins, posterior tibial veins, and greater saphenous vein outflow are patent. IMPRESSION: 1. No deep venous thrombosis. Reviewed, dictated and finalized at location A.
--- NOTE | ~2024-05-06 | CT_ITS ---
EXAMINATION: CTA chest PE protocol DATE: 05/06/2024 13:32 INDICATION: Dyspnea. TECHNIQUE: Computed tomography angiography (CTA) of the chest was performed with 100 mL Omnipaque-350 intravenous contrast timed to evaluate the pulmonary arteries. Coronal maximum intensity projection 3D-reconstructions were created by the technologist. Automated exposure control and iterative reconst ruction technique were employed. The dose-length product was 600.20 mGy-cm. COMPARISON: Chest CT 02/22/2024 FINDINGS: There are moderate-sized pleural effusions. There is smooth septal thickening in the lungs, consistent with mild pulmonary edema. There are airspace and groundglass opacities in right upper lo be. There is mild atelectasis bilaterally. Cardiomegaly is noted. There are changes of coronary arter y bypass grafting. There is a small pericardial effusion. There is a closure device at left atrial ap pendage. There is no pulmonary embolus. There is mild mediastinal and bilateral axillary lymphadenopa thy. There are bilateral shoulder arthroplasties. There is severe thoracic spondylosis. There is mild chronic anterior wedging of multiple vertebral bodies. IMPRESSION: 1. No pulmonary embolus. 2. Mild pulmonary edema and moderate-sized pleural effusions. 3. Airspace and groundglass opacities in right upper lobe, consistent with pneumonia. 4. Persistent mild mediastinal and bilateral axillary lymphadenopathy, which may be reactive lymphade nopathy or lymphoma. Reviewed, dictated and finalized at location A. IMPRESSION: 1. No pulmonary embolus. 2. Mild pulmonary edema and moderate-sized pleural effusions. 3. Airspace and groundglass opacities in right upper lobe, consistent with pneu monia. 4. Persistent mild mediastinal and bilateral axillary lymphadenopathy, which ma y be reactive lymphadenopathy or lymphoma.
--- NOTE | 2024-05-06 11:49 | ECG_ITS ---
Test Date: 2024-05-06 11:51:38 Measurements Intervals [place] Rate: 91 P: 41 [place]: 223 QRS: -53 QRSD: 120 T: 109 QT: 409 QTc: 504 Interpretive Statements SINUS RHYTHM WITH FIRST DEGREE AV BLOCK COMPLEXES LEFT ANTERIOR FASCICULAR BLOCK BORDERLINE ST-T WAVE ABNORMALITY- HIGH LATERAL LEADS BASELINE WANDER- V2 ABNORMAL ECG Compared to ECG 04/26/2024 01:30:39 NO SIGNIFICANT CHANGES Electronically Signed On 05-06-2024 12:59:21 CDT by Tho Mendoza D.O.
--- NOTE | 2024-05-06 12:37 | ED.RECABL ---
HPI - Recheck/Abnormal Lab/Rx General Chief Complaint: Recheck/Abnormal Lab/Rx Stated Complaint: elevated WBC count, had CABG 5 weeks ago Time Seen by Provider: 05/06/24 12:00 History of Present Illness HPI narrative: This is a 79-year-old male with a past medical history significant for chronic lymphocytic leukemia, recent CABG 6 weeks prior. Patient states he had regular outpatient follow-up today was complaining of some bilateral lower extremity swelling for which laboratory studies were drawn. He was sent home from the office with no other acute complaints but was later called by his nurse practitioner to proceed to the ED as he has a slightly elevated white count than normal. Patient has history of chronically elevated leukocytes secondary to his CLL. Denies any fever, chills, cough chest pain, back pain. He states his bilateral lower extremities have been swelling he has gained 10 lb since his last checkup. He states he has subjective shortness of breath occasionally but otherwise has been recovering well and undergoing cardiopulmonary rehabilitation without issue. He was recently seen in this emergency department for atrial fibrillation with RVR that was rate controlled and was sent home with metoprolol and Xarelto. Related Data Home Medications Medication Instructions Recorded Confirmed finasteride 5 mg tablet 5 mg PO DAILY 01/01/23 05/06/24 rosuvastatin 20 mg tablet 40 mg PO DAILY 01/01/23 05/06/24 coenzyme Q10 100 mg capsule 100 mg PO DAILY 01/16/23 05/06/24 (CoQ-10) metoprolol succinate 25 mg 50 mg PO HS 01/16/23 05/06/24 tablet,extended release 24 hr pantoprazole 40 mg tablet,delayed 40 mg PO DAILY 01/16/23 05/06/24 release aspirin 81 mg tablet,delayed 81 mg PO DAILY 04/19/24 05/06/24 release tamsulosin 0.4 mg capsule 0.4 mg PO DAILY 04/19/24 05/06/24 amiodarone 200 mg tablet 200 mg PO DAILY 04/26/24 05/06/24 rivaroxaban 20 mg tablet (Xarelto) 20 mg PO DAILY 05/06/24 05/06/24 Allergies Allergy/AdvReac Type Severity Reaction Status Date / Time Penicillins Allergy Unknown Hives Verified 05/06/24 15:55 Review of Systems Review of Systems: As reviewed above in the HPI COUNT INCLUDES THE [facility] Past Medical History Medical History (Updated 05/06/24 @ 23:11 by Gonzalo Sears MD) Aftercare following right shoulder joint replacement surgery Arthritis BPH (benign prostatic hyperplasia) Chronic GERD Chronic lymphocytic leukemia DVT (deep venous thrombosis) Hyperlipemia Hypertension Kidney stone Overweight (BMI 25.0-29.9) Thrombocytopathia Surgical History Surgical History History of endoscopic harvesting of vein History of reverse total replacement of left shoulder joint (~02/13/23) History of reverse total replacement of right shoulder joint Hx of CABG Presence of right artificial knee joint S/P CABG x 4 Family History Family History Mother Cerebrovascular accident Social History Social History 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 Smoking packs per day: 1 Smoking cigarettes per day: 20.0 Years smoked: 4 Smoking pack-years: 4.00 Smoking status: Never smoker Tobacco type: cigarettes Second hand tobacco smoke exposure: No Smoking end date: 10/08/75 Alcohol intake: never Drinks per week: 1 Substance use: never Do You Feel Safe in your Home?: Yes Lack of Transportation: No Lack of Food: Never True Current Housing: I Have Housing Concerned About Future Housing: No Difficulty Paying Gas/Electric Bills: No Difficulty Paying for Meds: No Currently Unemployed: No Education: Decline to Answer Difficulty w/ Childcare or Family Care: No Living arrangements: with family Spiritual care concerns: No Exam Narrative: GENERAL: [Well-appearing, well-nourished, and in no acute distress.] EVELIO
[2024-05-06] MEDS: FUROSEMIDE INJ 40 MG/4 ML VIAL IV PUSH ×2 (12:53→16:57)
[2024-05-06 13:02] LABS: Hematocrit 32.5 % (42.0-52.0); Hemoglobin 9.4 g/dL (14.0-18.0); Mean Corpuscular HGB Conc 28.9 g/dl (32-36); Mean Corpuscular Hemoglobin 27.6 pg (26-34); Mean Corpuscular Volume 95.3 fl (80-100); Mean Platelet Volume 10.7 fl (7.4-10.4); Platelet Count Result 109 k/mm3 (150-375); Red Blood Count 3.41 M/mm3 (4.6-6.20); Red Cell Distribution Width 15.4 % (11.5-14.5)
[2024-05-06 13:28] LABS: Estimated CRCL calculation 37 ml/min; Estimated Glomerular Filt Rate 37
[2024-05-06 13:33] LABS: Alanine Aminotransferase 30 U/L (6-50); Albumin Level 3.7 g/dL (3.5-5.1); Alkaline Phosphatase 66 U/L (38-126); Anion Gap 10 mmol/L (4-12); Aspartate Amino Transferase 44 U/L (17-59); Bilirubin,Total 0.8 mg/dL (0.2-1.3); Blood Urea Nitrogen 37 mg/dL (9-20); Calcium 8.8 mg/dL (8.4-10.2); Carbon Dioxide 24 mmol/L (22-30); Chloride 106 mmol/L (98-107); Estimated CRCL calculation 44 ml/min; Estimated Glomerular Filt Rate 45; Glucose 133 mg/dL (65-110); Magnesium 2.1 mg/dL (1.6-2.3); Potassium 4.1 mmol/L (3.4-5.0); Sodium 140 mmol/L (137-145)
[2024-05-06 13:45] LABS: NT Pro B Type Natriuretic Pept 13400 pg/mL (19.9-100); Troponin I 0.036 ng/mL (0.000-0.034)
[2024-05-06 13:53] LABS: Lymphocytes Absolute Manual 34.83 K/mm3 (1.1-4.5); Monocytes Absolute Manual 0.86 K/mm3 (0.1-0.90); Monocytes Percent Manual 2 % (3-9); Neutrophils Percent Manual 17 % (46-73); Total Cells Counted 100
[2024-05-06 13:55] LABS: Acanthocytes 1+; Anisocytosis 1+; Hypochromasia 1+; Platelet Estimate Slightly Decreased (Adequate)
[2024-05-06 13:56] LABS: Schistocytes None Seen
--- NOTE | 2024-05-06 14:16 | PM.IMHP ---
H&P: HPI History of Present Illness Date/Time: 05/06/24 14:16 Chief Complaint: bilateral lower extremity swelling Narrative: This is a very pleasant 79-year-old gentleman with a past medical history significant for recent 4 vessel CABG in 03/2024 at [place], recent atrial fibrillation diagnosis on anticoagulation, hypertension, hyperlipidemia, BPH and CLL for which he follows with Dr Sarabia at [facility]. He also follows with cardiology here at [place]. He presented to [facility] today after seeing his primary care provider for lower extremity swelling, nonproductive cough and shortness of breath. [place] [facility] [place] and was then called by his PCP and asked to be seen at [facility] for admission as his WBC was more elevated than his baseline. The patient provides the following history with is supplemented by his daughter and who are present during my visit. Last March the patient was transferred from this hospital to [place] on 03/11 for a CABG after findings of 3 vessel occlusion with 95% blockage on cardiac cath. He underwent a 4 vessel bypass with left saphenous vein harvest. Post op he developed atrial fibrillation with RVR and was started on amiodarone. Overall he did well and was discharged home. He only remained on PO amiodarone for 7 days as prescribed by his CTS surgeon. Since discharge he has returned to the emergency room at [place] twice and was found to be in atrial fibrillation with RVR. The first time he rate converted without intervention. The second time he received IV diltiazem and PO metoprolol and converted to NSR, rate of 99 with first degree AV block. He started cardiac rehab last week and has been doing well. He saw Noelle Reyes NP with cardiology last week and was started back on amiodarone and added Xarelto. He denies fever, chills, sore throat, chest pain, abdominal pain, nausea, vomiting, diarrhea, or constipation. He also reports a runny nose. In the emergency room labs were significant for white count of 43, hemoglobin 9.4, platelet 109, sodium 140, potassium 4.0, chloride 106, BUN 37, creatinine 1.8, glucose 133, BNP 97551, and troponin 0.036. Chest x-ray was concerning for pneumonia therefore CTA was ordered which showed no pulmonary embolism however there was mild pulmonary edema with moderate size pleural effusions bilaterally, ground-glass opacities in the right upper lobe consistent with pneumonia, and a small pericardial effusion. EKG showed sinus rhythm with a first-degree AV block rate 91. The patient was admitted to the hospitalist service for further workup of pneumonia and management of fluid overload. Review of Systems Review of Systems: All systems reviewed & are unremarkable except as noted in HPI and below PMFSH Past Medical History Medical History (Updated 05/06/24 @ 16:20 by Ana Galaviz APRN) Aftercare following right shoulder joint replacement surgery Arthritis BPH (benign prostatic hyperplasia) Chronic GERD Chronic lymphocytic leukemia DVT (deep venous thrombosis) Hyperlipemia Hypertension Kidney stone Overweight (BMI 25.0-29.9) Thrombocytopathia Surgical History Surgical History History of endoscopic harvesting of vein History of reverse total replacement of left shoulder joint (~02/13/23) History of reverse total replacement of right shoulder joint Hx of CABG Presence of right artificial knee joint S/P CABG x 4 Family History Family History Mother Cerebrovascular accident Social History Social History 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 Smoking packs per day: 1 Smoking cigarettes per day: 20.0 Years smoked: 4 Smoking pack-years: 4.00 Smoking status: Never smoker Tobacco type: cigarettes Second hand tobacco smoke exposure: No Smoking
[2024-05-06 16:31] LABS: Lactic Acid Reflex 0.8 mmol/L (0.7-2.0)
[2024-05-06 16:32] LABS: INR 1.6; Prothrombin Time 19.5 Seconds (11.1-14.7)
[2024-05-06 16:33] LABS: Partial Thromboplastin Time 31.9 Seconds (22.3-36.8)
[2024-05-06 16:46] LABS: Troponin I 0.038 ng/mL (0.000-0.034)
[2024-05-06 16:53] LABS: Procalcitonin 0.1 ng/mL
[2024-05-06] MEDS: CEFEPIME 2 GM/NS 50 ML 2 GM/50 ML BAG IVPB (16:56)
[2024-05-06 18:23] LABS: Appearance Urine Clear (Clear); Bacteria Urine None Seen /hpf; Bilirubin Urine Negative (Negative); Blood Urine 2+ (Negative); Color Urine Yellow (Yellow); Glucose Urine UA Negative (Negative); Ketones Urine Negative (Negative); Leukocyte Esterase Ur Trace LEU/UL (Negative); Nitrate Urine Negative (Negative); Non Pathogenic Casts 0-2; Protein Urine 1+ mg/dL (Negative); Specific Grav Ur 1.011 (1.001-1.035); Squamous Epithelial Cell Urine None Seen /hpf (Few); Urobilinogen Urine 0.2 mg/dL (<2.0); WBC Urine 0-5 /hpf (0-3)
[2024-05-06 18:35] LABS: Add Urine Microscopic? YES
[2024-05-06 19:20] LABS: Influenza A QL RT-PCR Negative (Negative); Influenza B QL RT-PCR Negative (Negative); RSV RNA, RT-PCR Negative (Negative); SARS-CoV-2 RNA PCR Negative (Negative)
[2024-05-06 19:57] LABS: MRSA (PCR) NOT DETECTED (NOT DETECTE)
[2024-05-06] MEDS: METOPROLOL SUCCINATE EXT REL 50 MG TABCR PO (20:30)
[2024-05-07] VITALS (13 sets, daily range): BP systolic 131–157; BP diastolic 73–105; PULSE 78–106; RESP 16–18; TEMP 36.2–37; O2SAT 94–99
--- NOTE | 2024-05-07 | ECHO_ITS ---
Patient Info Name: Wiliam Perez Age: 79 years : 1945 Gender: Male Ht: 75 in Wt: 206 lbs BSA: 2.23 m2 HR: 96 bpm BP: 157 / 80 mmHg Heart Rhythm: Sinus Rhythm Technical Quality: Good Exam Date: 05/07/2024 12:36 PM Exam Location: Echo Lab Patient Status: Inpatient Admit Date: 05/07/2024 Staff Ordering Physician: Mateus Encinas MD Dianeticist: Power Baumann RDCS Attending Provider: Nakul Zhang MD Referring Physician: Huang DAILEY; Exam Type: CA echo dop color flow w con Study Info Indications - CAD - recent CABG - volume overload Complete two-dimensional, color flow and Doppler transthoracic echocardiogram is performed with contrast to opacify the left ventricle and to improve the deliniation of the left ventricle endocardial borders. Contrast/Agitated Saline Contrast/Ag. Saline: Definity Amount: 3.00 ml Existing IV Access: Yes Summary 1. Left ventricular chamber dimension is mildly enlarged. 2. Left ventricular systolic function is moderately reduced, estimated at 35-40%. 3. There is moderately increased left ventricular wall thickness. 4. The left ventricular diastolic function is grade II diastolic dysfunction. 5. The inferior wall, inferoseptal wall, basal anteroseptal, and mid anteroseptal are hypokinetic. 6. Right ventricular chamber dimension is mildly enlarged. 7. Left atrial chamber dimension is mildly enlarged. 8. Right atrial chamber dimension is mildly enlarged. 9. There is mild mitral valve regurgitation. 10. There is mild aortic valve regurgitation. 11. There is mild tricuspid valve regurgitation. 12. Mild pulmonary hypertension, estimated pulmonary arterial systolic pressure is 42 mmHg. 13. There is mild pulmonic regurgitation. 14. The aortic root size at the sinus of Valsalva is mildly dilated. 15. The prox ascending aorta size is mildly dilated. 16. Pleural effusion noted. Left Ventricle Left ventricular chamber dimension is mildly enlarged. Left ventricular systolic function is moderately reduced, estimated at 35-40%. There is moderately increased left ventricular wall thickness. The left ventricular diastolic function is grade II diastolic dysfunction. The inferior wall, inferoseptal wall, basal anteroseptal, and mid anteroseptal are hypokinetic. All other valenzuela appear normal. Right Ventricle Right ventricular chamber dimension is mildly enlarged. Right ventricular systolic function is normal. Left Atria Left atrial chamber dimension is mildly enlarged. Right Atria Right atrial chamber dimension is mildly enlarged. Atrial Septum Intact interatrial septum visualized by color flow imaging. Aortic Valve The aortic valve is trileaflet. There is no aortic valve stenosis. There is mild aortic valve regurgitation. There is mild aortic valve calcification. Pulmonic Valve The pulmonic valve is normal. There is no pulmonic valve stenosis. There is mild pulmonic regurgitation. Mitral Valve There is no mitral valve stenosis. There is mild mitral valve regurgitation. The mitral valve annulus is mildly calcified. Tricuspid Valve The tricuspid valve leaflets are normal. There is no significant tricuspid valve stenosis. There is mild tricuspid valve regurgitation. Mild pulmonary hypertension, estimated pulmonary arterial systolic pressure is 42 mmHg. Pericardium/Pleural The pericardium appears normal. There is trivial pericardial effusion. Pleural effusion noted. Inferior Vena Cava Dilated inferior vena cava with <50% collapse u
[2024-05-07] MEDS: CEFEPIME 2 GM/NS 50 ML 2 GM/50 ML BAG IVPB ×2 (05:02→16:55)
[2024-05-07 05:34] LABS: Iron 42 ug/dL (49-181)
[2024-05-07 05:43] LABS: Percent Iron Saturation 11 % (20-50)
--- NOTE | 2024-05-07 07:59 | PM.IMPN ---
Progress Note: A&P Assessment and Plan (1) Congestive heart failure: Code(s): I50.9 - Heart failure, unspecified Status: Acute (2) Pneumonia: Code(s): J18.9 - Pneumonia, unspecified organism Status: Acute (3) Pleural effusion, bacterial: Code(s): J90 - Pleural effusion, not elsewhere classified Status: Acute Plan This is a very pleasant 79-year-old gentleman with a past medical history significant for recent 4 vessel CABG in 03/2024 at [place], recent atrial fibrillation diagnosis on anticoagulation, hypertension, hyperlipidemia, BPH and CLL for which he follows with Dr Sarabia at [facility]. He also follows with cardiology here at [place]. He presented to [place] ER after seeing his primary care provider for lower extremity swelling, nonproductive cough and shortness of breath. Acute on chronic systolic heart failure Assessment and Plan: S/P 4 vessel CABG with atrial appendage closure in 03/2024 at [place] here with shortness of breath and bilateral lower extremity swelling. Patient reports shallow breathing with non-productive cough. BNP 13,000 on admission. Imaging shows moderate sized pleural effusions, no PE. Reports have been requested from [place], including ECHO Lasix 40 mg IVP BID Home medications will be resumed as appropropriate. Telemetry ordered Replace lytes to keep K+ > 3.5, Mg > 1.6 Daily weights and strict I&O GUILHERME hose ordered Cardiology has been consulted and rec's are appreciated Repeat echocardiogram showed 1. Left ventricular chamber dimension is mildly enlarged. 2. Left ventricular systolic function is moderately reduced, estimated at 35-40%. 3. There is moderately increased left ventricular wall thickness. 4. The left ventricular diastolic function is grade II diastolic dysfunction. 5. The inferior wall, inferoseptal wall, basal anteroseptal, and mid anteroseptal are hypokinetic. 6. Right ventricular chamber dimension is mildly enlarged. 7. Left atrial chamber dimension is mildly enlarged. 8. Right atrial chamber dimension is mildly enlarged. 9. There is mild mitral valve regurgitation. 10. There is mild aortic valve regurgitation. 11. There is mild tricuspid valve regurgitation. 12. Mild pulmonary hypertension, estimated pulmonary arterial systolic pressure is 42 mmHg. 13. There is mild pulmonic regurgitation. 14. The aortic root size at the sinus of Valsalva is mildly dilated. 15. The prox ascending aorta size is mildly dilated. 16. Pleural effusion noted. (2) Pneumonia: Code(s): J18.9 - Pneumonia, unspecified organism Status: Acute Assessment and Plan: Complaints of shortness of breath with non-productive cough. Afebrile. White count is slightly increased from his baseline per his PCP reports. WBC is actually better now than when he was here last in 03/2024. CTA chest shows right upper lobe pneumonia. Patient denies coughing or choking episode to explain an aspiration pneumonia. He does though have a history of GERD and is on a PPI. Blood cultures ordered, U/A ordered for legionella, pneumococcal antigen Started on Cefepime 2 mg BID given recent hospitalization MRSA negative Viral respiratory panel: Flu and COVID negative Procal, lactic pending Albuterol nebs prn, no active wheezing IS and PEP therapy Continue cefepime and add doxycycline IV Chronic lymphocytic leukemia Leukocytosis, chronic anemia, thrombocytopenia Patient has been having leukocytosis, anemia and thrombocytopenia since January 2023 Lymphocyte 81% Pleural effusion Receiving IV Lasix Repeat XR in the am: Small left pleural effusion. Improving on IV Lasix CKD stage 3 Creatinine is on baseline Patient is on IV Lasix Follow-up BMP and electrolyte daily Afib: Code(s): I48.91 - Unspecified atrial fibrillation Status: Acute Assessment and Plan: Follows with Cardiology here at [facility]
[2024-05-07] MEDS: PANTOPRAZOLE 40 MG TABLET PO (08:32)
[2024-05-07] MEDS: ASPIRIN 81 MG ENTERIC TABLET PO (08:32)
[2024-05-07] MEDS: TAMSULOSIN HCL 0.4 MG CAPSULE PO (08:32)
[2024-05-07] MEDS: FUROSEMIDE INJ 40 MG/4 ML VIAL IV PUSH ×2 (08:33→16:55)
[2024-05-07] MEDS: AMIODARONE HCL 200 MG TABLET PO (08:33)
[2024-05-07] MEDS: FINASTERIDE 5 MG TABLET PO (08:33)
[2024-05-07] MEDS: ROSUVASTATIN 20 MG TABLET 40 MG PO (08:33)
[2024-05-07 09:31] LABS: Hematocrit 32.2 % (42.0-52.0); Hemoglobin 9.5 g/dL (14.0-18.0); Mean Corpuscular HGB Conc 29.5 g/dl (32-36); Mean Corpuscular Hemoglobin 27.3 pg (26-34); Mean Corpuscular Volume 92.5 fl (80-100); Mean Platelet Volume 10.4 fl (7.4-10.4); Platelet Count Result 113 k/mm3 (150-375); Red Blood Count 3.48 M/mm3 (4.6-6.20); Red Cell Distribution Width 15.3 % (11.5-14.5)
[2024-05-07 09:46] LABS: Alanine Aminotransferase 30 U/L (6-50); Albumin Level 3.8 g/dL (3.5-5.1); Alkaline Phosphatase 75 U/L (38-126); Anion Gap 14 mmol/L (4-12); Aspartate Amino Transferase 36 U/L (17-59); Bilirubin,Total 0.9 mg/dL (0.2-1.3); Blood Urea Nitrogen 34 mg/dL (9-20); Calcium 9.1 mg/dL (8.4-10.2); Carbon Dioxide 27 mmol/L (22-30); Chloride 101 mmol/L (98-107); Estimated CRCL calculation 39 ml/min; Estimated Glomerular Filt Rate 39; Glucose 184 mg/dL (65-110); Magnesium 1.9 mg/dL (1.6-2.3); Potassium 3.3 mmol/L (3.4-5.0); Sodium 142 mmol/L (137-145)
[2024-05-07 10:15] LABS: White Blood Count 55.2 K/mm3 (4.5-10.0)
[2024-05-07 10:17] LABS: Eosinophils Absolute Manual 0.55 K/mm3 (0.02-0.50); Eosinophils Percent Manual 1 % (0-4); Lymphocytes Absolute Manual 44.71 K/mm3 (1.1-4.5); Neutrophils Percent Manual 18 % (46-73); Platelet Estimate Adequate (Adequate); Smudge Cells MODERATE; Total Cells Counted 100
[2024-05-07 10:18] LABS: Anisocytosis 1+; Polychromasia 1+
[2024-05-07 10:20] LABS: Hypochromasia 1+
[2024-05-07 10:31] LABS: Schistocytes None Seen
--- NOTE | 2024-05-07 10:59 | PM.CNCAR ---
Assessment and Plan Assessment and plan (1) Fluid overload: Code(s): E87.70 - Fluid overload, unspecified Status: Acute Assessment and Plan: Volume overload. Continue IV furosemide 40 mg IV q.12 hours. Likely reduce IV Lasix or transition to oral Lasix tomorrow. Anticipate discharge home within 24-48 hours. 2D echocardiogram Doppler because recent CABG and to assess LV function given volume overload (2) CAD (coronary artery disease): Code(s): I25.10 - Atherosclerotic heart disease of [place] coronary artery without angina pectoris Status: Acute Assessment and Plan: Status post 4 vessel CABG on 03/14/2024: No anginal symptoms. Continue aspirin, metoprolol, rosuvastatin (3) Afib: Code(s): I48.91 - Unspecified atrial fibrillation Status: Acute Assessment and Plan: In sinus rhythm at this point. 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 x1 History of Present Illness History of Present Illness Consult date/time: 05/07/24 10:59 Requesting physician: Ana Galaviz APRN Consult reason: Other (Volume overload, recent CABG) Reason For Visit: Extremity Swelling/Dyspnea Narrative: Date of service 05/07/2024 Reason for consultation: Reason CABG, volume overload Requesting provider: Ana Galaviz History: Patient is a 79-year-old male patient Dr. Blunt who underwent a 4 vessel CABG with a VILLALTA to the LAD, SVG to OM are PL, SVG to PDA as well as the left atrial appendage clip on 03/14/2024 at [place]. He had been doing fairly well postoperatively. He has had a couple bouts of atrial fibrillation resulting in ER visits. He was seen by his surgeon as an outpatient who took him off of furosemide and amiodarone. He did see our nurse practitioner on 04/25/2024 following an ER visit for atrial fibrillation with rapid ventricular response. At that visit, he was put back on amiodarone and Xarelto. He had an ER visit where they did notice that he was a little bit volume overloaded with some swelling and his ER physician at the time put him on low-dose furosemide 20 mg daily which stopped last Sunday. Since then, he is noticed 2-3 days of worsening lower extremity swelling, shortness of breath. He went to cardiac rehab on Sunday and was noted that his weight was up 8 lb from the previous Sunday. He denies any palpitations, syncope, presyncope, paroxysmal nocturnal dyspnea, orthopnea. No bleeding issues. Yesterday he saw his primary care provider and labs were ordered as well as x-rays and he eventually was told to go to the ER for further workup and evaluation. He has since been admitted for a CHF exacerbation/volume overload and started on IV furosemide. His swelling is much improved already. Breathing is better. He also is being treated for pneumonia based upon some right upper lobe haziness. Cardiology consultation is requested for further assistance and evaluation Review of Systems Review of Systems: All systems reviewed & are unremarkable except as noted in HPI and below Constitutional: Constitutional: Denies body ache(s) Eyes: Eyes: Denies blurry vision ENT: Reports Normal hearing present Cardiovascular: Cardiovascular: Denies chest pain and Reports leg edema Respiratory: Respiratory: Reports cough and Reports dyspnea Gastrointestinal: Gastrointestinal: Denies abdominal pain Genitourinary: Genitourinary: Denies hematuria Musculoskeletal: Musculoskeletal: Denies back pain Integumentary/Breasts: Skin/Breast: Denies pruritus and Denies erythema Neurologic: Denies Abnormal speech present Psychiatric: Psychiatric: Denies anxiety and Denies behav
[2024-05-07] MEDS: PERFLUTREN LIPID MICROSPHERES 1.5 ML VIAL DILUTED TO 10 ML TOTAL VOLUME IV PUSH (13:02)
--- NOTE | 2024-05-07 13:03 | IVDEFINITY ---
Prior to administration of IV Definity the patient was educated on the risks and benefits of the imaging enhancing agent including potential adverse side effects. The patient verbalized understanding. Allergies were verified. No exclusion criteria were identified and at least one of the following inclusion criteria were met: 1) physician request, 2) patient technically difficult to image (per the [place] [employer] guidelines of two or more segments not discernable within the apical view), or 3) questionable left ventricular function. ?
[2024-05-07] MEDS: RIVAROXABAN 20 MG TABLET PO (16:55)
[2024-05-07] MEDS: METOPROLOL SUCCINATE EXT REL 50 MG TABCR PO (20:17)
[2024-05-08] VITALS (8 sets, daily range): BP systolic 129–155; BP diastolic 55–92; PULSE 65–94; RESP 16–20; TEMP 36.1–36.9; O2SAT 95–98
[2024-05-08] MEDS: CEFEPIME 2 GM/NS 50 ML 2 GM/50 ML BAG IVPB (04:08)
[2024-05-08] MEDS: ROSUVASTATIN 20 MG TABLET 40 MG PO (08:24)
[2024-05-08] MEDS: AMIODARONE HCL 200 MG TABLET PO (08:25)
[2024-05-08] MEDS: TAMSULOSIN HCL 0.4 MG CAPSULE PO (08:25)
[2024-05-08] MEDS: POTASSIUM CHLORIDE 20 MEQ PACKET (FOR LIQUID) 40 MEQ PO (08:25)
[2024-05-08] MEDS: FINASTERIDE 5 MG TABLET PO (08:25)
[2024-05-08] MEDS: PANTOPRAZOLE 40 MG TABLET PO (08:25)
[2024-05-08] MEDS: ASPIRIN 81 MG ENTERIC TABLET PO (08:25)
[2024-05-08] MEDS: FUROSEMIDE INJ 40 MG/4 ML VIAL IV PUSH (08:26)
--- NOTE | 2024-05-08 08:51 | P.PNIM_ITS ---
Progress Note: A&P Assessment and Plan (1) Congestive heart failure: Code(s): I50.9 - Heart failure, unspecified Status: Acute (2) Pneumonia: Code(s): J18.9 - Pneumonia, unspecified organism Status: Acute (3) Pleural effusion, bacterial: Code(s): J90 - Pleural effusion, not elsewhere classified Status: Acute (4) CAD (coronary artery disease): Code(s): I25.10 - Atherosclerotic heart disease of [place] coronary artery without angina pectoris Status: Acute (5) Localized swelling of lower extremity: Code(s): M79.89 - Other specified soft tissue disorders Status: Acute (6) B-cell chronic lymphocytic leukemia: Code(s): C91.10 - Chronic lymphocytic leukemia of B-cell type not having achieved remission Status: Acute (7) Afib: Code(s): I48.91 - Unspecified atrial fibrillation Status: Acute (8) Hx of CABG: Code(s): Z95.1 - Presence of aortocoronary bypass graft Status: Acute (9) Anemia: Code(s): D64.9 - Anemia, unspecified Status: Acute (10) BPH (benign prostatic hyperplasia): Code(s): N40.0 - Benign prostatic hyperplasia without lower urinary tract symptoms Status: Acute (11) Acute renal failure superimposed on stage 3 chronic kidney disease: Code(s): N17.9 - Acute kidney failure, unspecified; N18.30 - Chronic kidney disease, stage 3 unspecified Status: Acute Plan 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 transitioned to PO * Replace lytes to keep K+ > 3.5, Mg > 1.6 * monitor renal function during diuresis * echocardiogram reviewed combined HF EF 30-35 * EKG 1st degree av block * Optimize Kenneth inhibitors, beta-blockers, ARNI * Daily weight. * fluid restriction * elevate/Kenneth wrap legs if needed * Lifevest ordered * Will add entresto per Cardiology CAD * S/P 4 vessel CABG with atrial appendage closure in 03/2024 at [place] here with shortness of breath and bilateral lower extremity swelling. Patient reports shallow breathing with non-productive cough. BNP 13,000 on admission. Imaging shows moderate sized pleural effusions, no PE. * Resume BB, ASA, Xarelto, and Statin * Cardiology consult * Continuous cardiac monitoring Pneumonia * Bronchodilators. * PEP therapy * Guaifenesin b.i.d. * CTA right upper lobe pneumonia * incentive spirometry while awake. * sputum culture ordered * influenza/COVID/RSV negative * Cefepime due to recent hospitalization * supplemental oxygen therapy to maintain oxygen 92% Atrial fibrillation * RVR POA * Resume BB and amiodarone * Currently HR controlled EKG shows first-degree AV block * Resumed Xarelto Anemia * Chronic anemia and thrombocytopenia. Hemoglobin 9.4 g/dL on admission. Platelets 109. No overt bleeding. * likely 2/2 his CLL * TIBC, folic acid, and vitamin B 12 ordered * Daily CBC (6) CLL (chronic lymphocytic leukemia): Acute on chronic renal failure * Stage III * Close to baseline * Gentle IV hydration. * nephrology consulted * Avoid nephrotoxic drugs. Monitor closely with Duiresis * Monitor antihypertensive drug therapy. * Avoid NSAIDs. * Routine CMP monitoring GFR. * Monitor electrolytes especially potassium. * Antibiotic doses depending on creatinine clearance. HX BPH: Resume Proscar Code status: Full code per patient DV
--- NOTE | 2024-05-08 08:51 | PM.IMPN ---
Progress Note: A&P Assessment and Plan (1) Congestive heart failure: Code(s): I50.9 - Heart failure, unspecified Status: Acute (2) Pneumonia: Code(s): J18.9 - Pneumonia, unspecified organism Status: Acute (3) Pleural effusion, bacterial: Code(s): J90 - Pleural effusion, not elsewhere classified Status: Acute (4) CAD (coronary artery disease): Code(s): I25.10 - Atherosclerotic heart disease of [place] coronary artery without angina pectoris Status: Acute (5) Localized swelling of lower extremity: Code(s): M79.89 - Other specified soft tissue disorders Status: Acute (6) B-cell chronic lymphocytic leukemia: Code(s): C91.10 - Chronic lymphocytic leukemia of B-cell type not having achieved remission Status: Acute (7) Afib: Code(s): I48.91 - Unspecified atrial fibrillation Status: Acute (8) Hx of CABG: Code(s): Z95.1 - Presence of aortocoronary bypass graft Status: Acute (9) Anemia: Code(s): D64.9 - Anemia, unspecified Status: Acute (10) BPH (benign prostatic hyperplasia): Code(s): N40.0 - Benign prostatic hyperplasia without lower urinary tract symptoms Status: Acute (11) Acute renal failure superimposed on stage 3 chronic kidney disease: Code(s): N17.9 - Acute kidney failure, unspecified; N18.30 - Chronic kidney disease, stage 3 unspecified Status: Acute Plan 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 transitioned to PO Replace lytes to keep K+ > 3.5, Mg > 1.6 monitor renal function during diuresis echocardiogram reviewed combined HF EF 30-35 EKG 1st degree av block Optimize Kenneth inhibitors, beta-blockers, ARNI Daily weight. fluid restriction elevate/Kenneth wrap legs if needed Lifevest ordered Will add entresto per Cardiology CAD S/P 4 vessel CABG with atrial appendage closure in 03/2024 at [place] here with shortness of breath and bilateral lower extremity swelling. Patient reports shallow breathing with non-productive cough. BNP 13,000 on admission. Imaging shows moderate sized pleural effusions, no PE. Resume BB, ASA, Xarelto, and Statin Cardiology consult Continuous cardiac monitoring Pneumonia Bronchodilators. PEP therapy Guaifenesin b.i.d. CTA right upper lobe pneumonia incentive spirometry while awake. sputum culture ordered influenza/COVID/RSV negative Cefepime due to recent hospitalization supplemental oxygen therapy to maintain oxygen 92% Atrial fibrillation RVR POA Resume BB and amiodarone Currently HR controlled EKG shows first-degree AV block Resumed Xarelto Anemia Chronic anemia and thrombocytopenia. Hemoglobin 9.4 g/dL on admission. Platelets 109. No overt bleeding. likely 2/2 his CLL TIBC, folic acid, and vitamin B 12 ordered Daily CBC (6) CLL (chronic lymphocytic leukemia): Acute on chronic renal failure Stage III Close to baseline Gentle IV hydration. nephrology consulted Avoid nephrotoxic drugs. Monitor closely with Duiresis Monitor antihypertensive drug therapy. Avoid NSAIDs. Routine CMP monitoring GFR. Monitor electrolytes especially potassium. Antibiotic doses depending on creatinine clearance. HX BPH: Resume Proscar Code status: Full code per patient DVT prophylaxis: Xarelto Stress ulcer prophylaxis: Protonix 40 daily PT/OT notes: PT/OT pending Disposition: Was admitted to the medical unit for further evaluation and treatment of acute on chronic heart failure and pneumonia. Patient will likely need a day or 2 of diuresis PT OT evaluation pending plan will likely be to discharge back home when medically stable. Time Spent With Patient Time with patient: 15 - 25 minutes Subjective Date/time seen: 05/08/24 08:51 Interval history: Admission: This is a very pleasan
[2024-05-08 09:29] LABS: Hematocrit 33.9 % (42.0-52.0); Hemoglobin 9.8 g/dL (14.0-18.0); Mean Corpuscular HGB Conc 28.9 g/dl (32-36); Mean Corpuscular Hemoglobin 27.1 pg (26-34); Mean Corpuscular Volume 93.6 fl (80-100); Mean Platelet Volume 10.6 fl (7.4-10.4); Platelet Count Result 116 k/mm3 (150-375); Red Blood Count 3.62 M/mm3 (4.6-6.20); Red Cell Distribution Width 15.2 % (11.5-14.5)
[2024-05-08 09:48] LABS: Alanine Aminotransferase 29 U/L (6-50); Alkaline Phosphatase 68 U/L (38-126); Anion Gap 12 mmol/L (4-12); Aspartate Amino Transferase 37 U/L (17-59); Bilirubin,Total 0.9 mg/dL (0.2-1.3); Blood Urea Nitrogen 32 mg/dL (9-20); Calcium 9.1 mg/dL (8.4-10.2); Carbon Dioxide 31 mmol/L (22-30); Chloride 98 mmol/L (98-107); Estimated CRCL calculation 35 ml/min; Estimated Glomerular Filt Rate 35; Glucose 168 mg/dL (65-110); Magnesium 1.9 mg/dL (1.6-2.3); Potassium 3.3 mmol/L (3.4-5.0); Sodium 141 mmol/L (137-145)
[2024-05-08 10:01] LABS: White Blood Count 54.2 K/mm3 (4.5-10.0)
[2024-05-08 10:06] LABS: Anisocytosis 1+; Eosinophils Absolute Manual 0.54 K/mm3 (0.02-0.50); Eosinophils Percent Manual 1 % (0-4); Lymphocytes Absolute Manual 50.94 K/mm3 (1.1-4.5); Neutrophils Percent Manual 5 % (46-73); Platelet Estimate Adequate (Adequate); Schistocytes None Seen; Total Cells Counted 100
[2024-05-08 10:07] LABS: Smudge Cells MODERATE
--- NOTE | 2024-05-08 11:22 | PM.PNCARD ---
Progress Note: A&P Assessment and Plan (1) Fluid overload: Code(s): E87.70 - Fluid overload, unspecified Status: Acute Assessment and Plan: Volume overload. He appears euvolemic at this point, so will shift him to furosemide 40mg p.o. daily. His echocardiogram showed LV dysfunction with EF 30-35% (2) CAD (coronary artery disease): Code(s): I25.10 - Atherosclerotic heart disease of [place] coronary artery without angina pectoris Status: Acute Assessment and Plan: Status post 4 vessel CABG on 03/14/2024: No anginal symptoms. Continue aspirin, metoprolol, rosuvastatin (3) Afib: Code(s): I48.91 - Unspecified atrial fibrillation Status: Acute Assessment and Plan: In sinus rhythm at this point. Continue amiodarone and Xarelto (4) Chronic anticoagulation: Code(s): Z79.01 - intermediate (current) use of anticoagulants Status: Acute Assessment and Plan: No bleeding problems, continue Xarelto (5) Hypokalemia: Code(s): E87.6 - Hypokalemia Status: Acute Assessment and Plan: Replace with 40 mEq potassium chloride p.o. x1 (6) Ischemic cardiomyopathy: Code(s): I25.5 - Ischemic cardiomyopathy Status: Acute Assessment and Plan: This is a new diagnosis. EF 30-35%. start Entresto 24-26mg p.o. b.i.d. start spironolactone 12.5mg daily Continue Toprol XL 50mg daily Can add SGLT2i as outpatient LifeVest order placed Plan He is stable for discharge after he is fitted for his LifeVest. Plan and recommendations discussed with hospitalist. Subjective Date/time seen: 05/08/24 11:22 Interval history: Cardiology follow up for CHF He is feeling well today and has no complaints aside from frequent urination. He denies shortness of breath, chest pain, palpitations, orthopnea. Review of Systems Review of Systems: All systems reviewed & are unremarkable except as noted in HPI and below Constitutional: Constitutional: Denies body ache(s) and Denies excessive sweating Eyes: Eyes: Denies blurry vision ENT: Reports Normal hearing present Cardiovascular: Cardiovascular: Denies chest pain, Reports leg edema and Reports dyspnea Respiratory: Respiratory: Reports cough and Reports dyspnea Gastrointestinal: Gastrointestinal: Denies abdominal pain Genitourinary: Genitourinary: Denies hematuria Musculoskeletal: Musculoskeletal: Denies back pain Integumentary/Breasts: Skin/Breast: Denies pruritus and Denies erythema Neurologic: Reports Normal hearing present, Denies Abnormal speech present and Denies behavioral changes Psychiatric: Psychiatric: Denies anxiety and Denies behavioral changes Endocrine: Endocrine: Denies excessive sweating Hematologic/Lymphatic: Hematologic/Lymphatic: Denies easy bleeding Allergic/Immunologic: Allergic/Immunologic: Denies GI upset with certain foods Exam Narrative: Awake alert oriented appears stated age Const: General: comfortable and no acute distress HENMT: Face/Nose/Sinus: Normal nares present Mouth: Yes moist mucous membranes Eyes: General: appearance normal, both eyes and all related structures Sclera: sclerae normal Neck: Neck: supple and no JVD Carotids: no bruits Chest: Other: No reproducible chest wall pain to palpation. Sternotomy incisions well healed Resp: Effort & Inspection: normal respiratory effort Auscultation: wheezes and diminished lung sounds Other: Crackles but her on the right Cardio: Rate: regular rate Rhythm: regular rhythm Heart sounds: Murmur heart sound present GI: Inspection: non-distended Auscultation: normal bowel sounds Skin: General skin exam: normal color Neuro: Cranial nerves: Yes Normal hearing present Speech: normal speech and No Abnormal speech present Sensory Exam: normal sensation Extrem: General: normal to inspection and no edema Psych: Mental Status: mental status grossly normal Affect: norm
[2024-05-08] MEDS: DOXYCYCLINE HYCLATE 100 MG TABLET PO (13:56)
--- NOTE | 2024-05-08 16:08 | P.DS_ITS ---
DS: Admitting Diagnosis Discharge Date 05/08/2024 Admitting Diagnosis Pneumonia/acute on chronic heart failure/AFib RVR DS: Discharge Diagnosis Discharge Diagnosis (1) Congestive heart failure: Code(s): I50.9 - Heart failure, unspecified Status: Acute (2) Pneumonia: Code(s): J18.9 - Pneumonia, unspecified organism Status: Acute (3) Pleural effusion, bacterial: Code(s): J90 - Pleural effusion, not elsewhere classified Status: Acute (4) CAD (coronary artery disease): Code(s): I25.10 - Atherosclerotic heart disease of [place] coronary artery without angina pectoris Status: Acute (5) Localized swelling of lower extremity: Code(s): M79.89 - Other specified soft tissue disorders Status: Acute (6) B-cell chronic lymphocytic leukemia: Code(s): C91.10 - Chronic lymphocytic leukemia of B-cell type not having achieved remission Status: Acute (7) Afib: Code(s): I48.91 - Unspecified atrial fibrillation Status: Acute (8) Hx of CABG: Code(s): Z95.1 - Presence of aortocoronary bypass graft Status: Acute (9) Anemia: Code(s): D64.9 - Anemia, unspecified Status: Acute (10) BPH (benign prostatic hyperplasia): Code(s): N40.0 - Benign prostatic hyperplasia without lower urinary tract symptoms Status: Acute (11) Acute renal failure superimposed on stage 3 chronic kidney disease: Code(s): N17.9 - Acute kidney failure, unspecified; N18.30 - Chronic kidney disease, stage 3 unspecified Status: Acute Plan 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 transitioned to PO * Replace lytes to keep K+ > 3.5, Mg > 1.6 * monitor renal function during diuresis * echocardiogram reviewed combined HF EF 30-35 * EKG 1st degree av block * Optimize Kenneth inhibitors, beta-blockers, ARNI * Daily weight. * fluid restriction * elevate/Kenneth wrap legs if needed * Lifevest ordered * Will add entresto per Cardiology CAD * S/P 4 vessel CABG with atrial appendage closure in 03/2024 at [place] here with shortness of breath and bilateral lower extremity swelling. Patient reports shallow breathing with non-productive cough. BNP 13,000 on admission. Imaging shows moderate sized pleural effusions, no PE. * Resume BB, ASA, Xarelto, and Statin * Cardiology consult * Continuous cardiac monitoring Pneumonia * Bronchodilators. * PEP therapy * Guaifenesin b.i.d. * CTA right upper lobe pneumonia * incentive spirometry while awake. * sputum culture ordered * influenza/COVID/RSV negative * Cefepime due to recent hospitalization * supplemental oxygen therapy to maintain oxygen 92% Atrial fibrillation * RVR POA * Resume BB and amiodarone * Currently HR controlled EKG shows first-degree AV block * Resumed Xarelto Anemia * Chronic anemia and thrombocytopenia. Hemoglobin 9.4 g/dL on admission. Platelets 109. No overt bleeding. * likely 2/2 his CLL * TIBC, folic acid, and vitamin B 12 ordered * Daily CBC (6) CLL (chronic lymphocytic leukemia): Acute on chronic renal failure * Stage III * Close to baseline * Gentle IV hydration. * nephrology consulted * Avoid nephrotoxic drugs. Monitor closely with Duiresis * Monitor antihypertensive drug therapy. * Avoid NSAIDs. * Routine CMP monitoring GFR. * Monitor electrolytes especially potassium. * Antibiotic doses depending on creatin
--- NOTE | 2024-05-08 16:08 | PM.DS ---
DS: Admitting Diagnosis Discharge Date 05/08/2024 Admitting Diagnosis Pneumonia/acute on chronic heart failure/AFib RVR DS: Discharge Diagnosis Discharge Diagnosis (1) Congestive heart failure: Code(s): I50.9 - Heart failure, unspecified Status: Acute (2) Pneumonia: Code(s): J18.9 - Pneumonia, unspecified organism Status: Acute (3) Pleural effusion, bacterial: Code(s): J90 - Pleural effusion, not elsewhere classified Status: Acute (4) CAD (coronary artery disease): Code(s): I25.10 - Atherosclerotic heart disease of [place] coronary artery without angina pectoris Status: Acute (5) Localized swelling of lower extremity: Code(s): M79.89 - Other specified soft tissue disorders Status: Acute (6) B-cell chronic lymphocytic leukemia: Code(s): C91.10 - Chronic lymphocytic leukemia of B-cell type not having achieved remission Status: Acute (7) Afib: Code(s): I48.91 - Unspecified atrial fibrillation Status: Acute (8) Hx of CABG: Code(s): Z95.1 - Presence of aortocoronary bypass graft Status: Acute (9) Anemia: Code(s): D64.9 - Anemia, unspecified Status: Acute (10) BPH (benign prostatic hyperplasia): Code(s): N40.0 - Benign prostatic hyperplasia without lower urinary tract symptoms Status: Acute (11) Acute renal failure superimposed on stage 3 chronic kidney disease: Code(s): N17.9 - Acute kidney failure, unspecified; N18.30 - Chronic kidney disease, stage 3 unspecified Status: Acute Plan 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 transitioned to PO Replace lytes to keep K+ > 3.5, Mg > 1.6 monitor renal function during diuresis echocardiogram reviewed combined HF EF 30-35 EKG 1st degree av block Optimize Kenneth inhibitors, beta-blockers, ARNI Daily weight. fluid restriction elevate/Kenneth wrap legs if needed Lifevest ordered Will add entresto per Cardiology CAD S/P 4 vessel CABG with atrial appendage closure in 03/2024 at [place] here with shortness of breath and bilateral lower extremity swelling. Patient reports shallow breathing with non-productive cough. BNP 13,000 on admission. Imaging shows moderate sized pleural effusions, no PE. Resume BB, ASA, Xarelto, and Statin Cardiology consult Continuous cardiac monitoring Pneumonia Bronchodilators. PEP therapy Guaifenesin b.i.d. CTA right upper lobe pneumonia incentive spirometry while awake. sputum culture ordered influenza/COVID/RSV negative Cefepime due to recent hospitalization supplemental oxygen therapy to maintain oxygen 92% Atrial fibrillation RVR POA Resume BB and amiodarone Currently HR controlled EKG shows first-degree AV block Resumed Xarelto Anemia Chronic anemia and thrombocytopenia. Hemoglobin 9.4 g/dL on admission. Platelets 109. No overt bleeding. likely 2/2 his CLL TIBC, folic acid, and vitamin B 12 ordered Daily CBC (6) CLL (chronic lymphocytic leukemia): Acute on chronic renal failure Stage III Close to baseline Gentle IV hydration. nephrology consulted Avoid nephrotoxic drugs. Monitor closely with Duiresis Monitor antihypertensive drug therapy. Avoid NSAIDs. Routine CMP monitoring GFR. Monitor electrolytes especially potassium. Antibiotic doses depending on creatinine clearance. HX BPH: Resume Proscar Code status: Full code per patient DVT prophylaxis: Xarelto Stress ulcer prophylaxis: Protonix 40 daily PT/OT notes: PT/OT pending Disposition: Was admitted to the medical unit for further evaluation and treatment of acute on chronic heart failure and pneumonia. Patient will likely need a day or 2 of diuresis PT OT evaluation pending plan will likely be to discharge back home when medically stable. DS: Summary Hospital Course Re
[2024-05-10 13:28] LABS: Pneumococcal Antigen Urine NOT DETECTED
[2024-05-13 03:54] LABS: Legionella pneumophila Ag Ur NOT DETECTED
[2024-05-13 18:13] LABS: Mycoplasma IgM Antibody Titer 37 U/mL
== END 2024-05-08 16:34 | disposition home or self-care (01) | DRG 291 ==
LOC: ANHED 12:20 → ANH3MED 14:50
PROVIDERS: Emergency Medicine; Nurse Practitioner Acute Care; Admitting Provider Hospitalist; Emergency Provider Student in an Organized Health Care Education/Training Program; PCP Internal Medicine; Visit Provider Nurse Practitioner Family
DX: I13.0 Hypertensive heart and chronic kidney disease with heart failure and stage 1 through stage 4 chronic kidney disease, or unspecified chronic kidney disease (principal); I50.43 Acute on chronic combined systolic (congestive) and diastolic (congestive) heart failure; J18.9 Pneumonia, unspecified organism; C91.10 Chronic lymphocytic leukemia of B-cell type not having achieved remission; D63.0 Anemia in neoplastic disease; E78.5 Hyperlipidemia, unspecified; E87.6 Hypokalemia; I25.5 Ischemic cardiomyopathy; I25.10 Atherosclerotic heart disease of native coronary artery without angina pectoris; I48.91 Unspecified atrial fibrillation; K21.9 Gastro-esophageal reflux disease without esophagitis; N18.30 Chronic kidney disease, stage 3 unspecified; N40.0 Benign prostatic hyperplasia without lower urinary tract symptoms; Z95.1 Presence of aortocoronary bypass graft; Z79.01 Long term (current) use of anticoagulants; Z79.82 Long term (current) use of aspirin; Z20.822 Contact with and (suspected) exposure to COVID-19; Z86.718 Personal history of other venous thrombosis and embolism; Z96.651 Presence of right artificial knee joint
CPT/HCPCS: 36415; 71045; 71275; 80053; 81001; 82607; 82746; 83540; 83550; 83605; 83735; 83880; 84145; 84484; 85025; 85610; 85730; 86738; 87040; 87449; 87637; 87641; 87899; 93005; 93970; 94667; 96365; 96375; 99285; A9270; C8929; G0378; J0692; J1940; Q9957; Q9967

== ENCOUNTER 2024-05-09 00:01 | Emergency (ER) | payer MEDICARE, OTHER, SELFPAY ==
--- NOTE | 2024-05-09 00:09 | ED.MALEGU ---
HPI - Male Genitourinary General Chief complaint: Urogenital-Male Stated complaint: Difficulty Voiding Time Seen by Provider: 05/09/24 00:07 Source: patient Mode of arrival: ambulatory Limitations: no limitations History of Present Illness HPI Narrative: 79 year old male presents to the emergency Department complaining of unable to urinate. Patient was discharged from [facility]. States he was hospitalized for CHF and has been getting Lasix. MD Complaint: other (urinary retention) Onset (ago): hour(s) Duration: constant Relieving factors: none Exacerbating factors: none Related Data Home Medications Medication Instructions Recorded Confirmed finasteride 5 mg tablet 5 mg PO DAILY 01/01/23 05/06/24 rosuvastatin 20 mg tablet 40 mg PO DAILY 01/01/23 05/06/24 coenzyme Q10 100 mg capsule 100 mg PO DAILY 01/16/23 05/06/24 (CoQ-10) metoprolol succinate 25 mg 50 mg PO HS 01/16/23 05/06/24 tablet,extended release 24 hr pantoprazole 40 mg tablet,delayed 40 mg PO DAILY 01/16/23 05/06/24 release aspirin 81 mg tablet,delayed 81 mg PO DAILY 04/19/24 05/06/24 release tamsulosin 0.4 mg capsule 0.4 mg PO DAILY 04/19/24 05/06/24 amiodarone 200 mg tablet 200 mg PO DAILY 04/26/24 05/06/24 rivaroxaban 20 mg tablet (Xarelto) 20 mg PO DAILY 05/06/24 05/06/24 Allergies Allergy/AdvReac Type Severity Reaction Status Date / Time Penicillins Allergy Unknown Hives Verified 05/06/24 15:55 Review of Systems Review of Systems: All systems reviewed & are unremarkable except as noted in HPI and below Constitutional: Constitutional: Reports as per HPI, Denies chills and Denies fever(s) Eyes: Eyes: Reports as per HPI ENT: Reports system reviewed and no additional complaints, except as documented Cardiovascular: Cardiovascular: Reports as per HPI and Denies chest pain Respiratory: Respiratory: Reports as per HPI and Denies dyspnea Gastrointestinal: Gastrointestinal: Reports as per HPI, Reports abdominal pain, Denies diarrhea, Denies nausea and Denies vomiting Genitourinary: Genitourinary: Reports no additional male genitourinary complaints and Reports oliguria Musculoskeletal: Musculoskeletal: Reports no additional musculoskeletal complaints Integumentary/Breasts: Skin/Breast: Reports system reviewed and no additional complaints, except as docu Neurologic: Reports system reviewed and no additional complaints, except as documented PMFSH Past Medical History Medical History Aftercare following right shoulder joint replacement surgery Arthritis BPH (benign prostatic hyperplasia) CAD (coronary artery disease) Chronic GERD Chronic lymphocytic leukemia DVT (deep venous thrombosis) Hyperlipemia Hypertension Kidney stone Overweight (BMI 25.0-29.9) Thrombocytopathia Surgical History Surgical History History of endoscopic harvesting of vein 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 Smoking packs per day: 1 Smoking cigarettes per day: 20.0 Years smoked: 4 Smoking pack-years: 4.00 Smoking status: Never smoker Tobacco type: cigarettes Second hand tobacco smoke exposure: No Smoking end date: 10/08/75 Alcohol intake: never Drinks per week: 1 Substance use: never Do You Feel Safe in your Home?: Yes Lack of Transportation: No Lack of Food: Never True Current Housing: I Have Housing Concerned About Future Housing: No Difficulty Paying Gas/Electric Bills: No Difficulty Paying for Meds:
[2024-05-09 00:10] VITALS: BP 152/110; PULSE 84; RESP 18; TEMP 36.6; O2SAT 98
--- NOTE | 2024-05-09 00:30 | PC.NURSE ---
After esteban cath placement and draining urine, pt reports feeling much better and has no pain.
[2024-05-09 00:45] VITALS: BP 140/90; PULSE 87; RESP 20; O2SAT 97
== END 2024-05-09 00:45 | disposition home or self-care (01) ==
LOC: CHSED 00:25
PROVIDERS: Emergency Provider Emergency Medicine; PCP Internal Medicine
DX: R33.9 Retention of urine, unspecified (principal); I25.10 Atherosclerotic heart disease of native coronary artery without angina pectoris; E78.5 Hyperlipidemia, unspecified; I10 Essential (primary) hypertension; Z86.718 Personal history of other venous thrombosis and embolism; Z87.891 Personal history of nicotine dependence
CPT/HCPCS: 99283

== ENCOUNTER 2024-05-09 09:45 | Emergency (ER) | payer MEDICARE, OTHER, SELFPAY ==
[2024-05-09 09:54] VITALS: BP 139/79; PULSE 84; RESP 18; TEMP 36.3; O2SAT 96
--- NOTE | 2024-05-09 11:03 | ED.GENADULT ---
HPI - General Adult General Chief complaint: Urogenital-Male <Maximo Polk APRN - Last Filed: 05/09/24 11:06> Stated complaint: hematuria <Maximo Polk APRN - Last Filed: 05/09/24 11:06> Time Seen by Provider: 05/09/24 11:03 <Maximo Polk APRN - Last Filed: 05/09/24 11:06> patient presents with blood in esteban catheter. patient was discharged from this hospital yesterday for fluid overload. patient was unable to urinate yesterday so went to [place] ED and had esteban placed. patient noticed blood in esteban today. patient is on Xarelto. patient denies any complaints. PE: A&Ox3, BS CTA, abdomen soft, moving all extremities, blood in esteban catheter <Maximo Polk APRN - Last Filed: 05/09/24 11:06> Related Data Home medications: Home Medications Medication Instructions Recorded Confirmed finasteride 5 mg tablet 5 mg PO DAILY 01/01/23 05/06/24 rosuvastatin 20 mg tablet 40 mg PO DAILY 01/01/23 05/06/24 coenzyme Q10 100 mg capsule 100 mg PO DAILY 01/16/23 05/06/24 (CoQ-10) metoprolol succinate 25 mg 50 mg PO HS 01/16/23 05/06/24 tablet,extended release 24 hr pantoprazole 40 mg tablet,delayed 40 mg PO DAILY 01/16/23 05/06/24 release aspirin 81 mg tablet,delayed 81 mg PO DAILY 04/19/24 05/06/24 release tamsulosin 0.4 mg capsule 0.4 mg PO DAILY 04/19/24 05/06/24 amiodarone 200 mg tablet 200 mg PO DAILY 04/26/24 05/06/24 rivaroxaban 20 mg tablet (Xarelto) 20 mg PO DAILY 05/06/24 05/06/24 <Maximo Polk APRN - Last Filed: 05/09/24 11:06> Allergies/adverse reactions: Allergies Allergy/AdvReac Type Severity Reaction Status Date / Time Penicillins Allergy Unknown Hives Verified 05/06/24 15:55 <Maximo Polk APRN - Last Filed: 05/09/24 11:06> [facility] Past Medical History Medical History: Medical History Aftercare following right shoulder joint replacement surgery Arthritis BPH (benign prostatic hyperplasia) CAD (coronary artery disease) Chronic GERD Chronic lymphocytic leukemia DVT (deep venous thrombosis) Hyperlipemia Hypertension Kidney stone Overweight (BMI 25.0-29.9) Thrombocytopathia <Maximo Polk APRN - Last Filed: 05/09/24 11:06> Surgical History Surgical History: Surgical History History of endoscopic harvesting of vein History of reverse total replacement of left shoulder joint (~02/13/23) History of reverse total replacement of right shoulder joint Hx of CABG Presence of right artificial knee joint S/P CABG x 4 <Maximo Polk APRN - Last Filed: 05/09/24 11:06> Family History Family History: Family History Mother Cerebrovascular accident <Maximo Polk APRN - Last Filed: 05/09/24 11:06> Social History Social History: Social History 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 Smoking packs per day: 1 Smoking cigarettes per day: 20.0 Years smoked: 4 Smoking pack-years: 4.00 Smoking status: Never smoker Tobacco type: cigarettes Second hand tobacco smoke exposure: No Smoking end date: 10/08/75 Alcohol intake: never Drinks per week: 1 Substance use: never Do You Feel Safe in your Home?: Yes Lack of Transportation: No Lack of Food: Never True Current Housing: I Have Housing Concerned About Future Housing: No Difficulty Paying Gas/Electric Bills: No Difficulty Paying for Meds: No Currently Unemployed: No Education: Decline to Answer Difficulty w/ Childcare or Family Care: No Living arrangements: with family Spiritual care concerns: No <Maximo Polk APRN - Last Filed: 05/09/24 11:06> Exam Narrative: APPEARANCE: No apparent distress. Well-appearing Head: atraumatic. EYES: EOMI, NOSE: Atraumatic NECK: Trachea midline RESPIRATORY: No increased rate of br
--- NOTE | 2024-05-09 11:35 | PC.NURSE ---
Rn attempted PIV access without success. Vascular access called.
[2024-05-09 11:54] LABS: Bacteria Urine None Seen /hpf; Non Pathogenic Casts 0-2; RBC Urine >100 /hpf (0-2); Squamous Epithelial Cell Urine None Seen /hpf (Few); WBC Urine 51-100 /hpf (0-3)
[2024-05-09 11:55] LABS: Add Urine Microscopic? YES; Appearance Urine Cloudy (Clear); Bilirubin Urine Negative (Negative); Blood Urine 3+ (Negative); Color Urine Red (Yellow); Glucose Urine UA Negative (Negative); Ketones Urine Negative (Negative); Leukocyte Esterase Ur 1+ LEU/UL (Negative); Nitrate Urine Negative (Negative); Protein Urine 2+ mg/dL (Negative); Specific Grav Ur 1.009 (1.001-1.035)
[2024-05-09 12:22] VITALS: BP 137/95; PULSE 73; RESP 18; TEMP 36.6; O2SAT 100
== END 2024-05-09 12:23 | disposition home or self-care (01) ==
LOC: ANHED 12:08
PROVIDERS: Nurse Practitioner Family; Emergency Provider Emergency Medicine; PCP Internal Medicine
DX: R31.9 Hematuria, unspecified (principal); C91.10 Chronic lymphocytic leukemia of B-cell type not having achieved remission; I25.10 Atherosclerotic heart disease of native coronary artery without angina pectoris; E78.5 Hyperlipidemia, unspecified; E66.3 Overweight; N40.0 Benign prostatic hyperplasia without lower urinary tract symptoms; Z68.25 Body mass index [BMI] 25.0-25.9, adult; K21.9 Gastro-esophageal reflux disease without esophagitis; M19.90 Unspecified osteoarthritis, unspecified site; Z95.1 Presence of aortocoronary bypass graft; Z96.612 Presence of left artificial shoulder joint; Z96.611 Presence of right artificial shoulder joint; Z96.651 Presence of right artificial knee joint; Z86.718 Personal history of other venous thrombosis and embolism; Z87.442 Personal history of urinary calculi; Z87.81 Personal history of (healed) traumatic fracture; Z79.82 Long term (current) use of aspirin; Z79.01 Long term (current) use of anticoagulants; Z79.899 Other long term (current) drug therapy
CPT/HCPCS: 81001; 87086; 99283

== ENCOUNTER 2024-07-26 19:38 | Emergency (ER) | payer MEDICARE, OTHER, SELFPAY ==
[2024-07-26 19:39] VITALS: BP 161/100; PULSE 104; RESP 18; TEMP 36.3; O2SAT 95
[2024-07-26 21:43] LABS: Add Urine Microscopic? YES; Bilirubin Urine Negative (Negative); Blood Urine 3+ (Negative); Color Urine Light Yellow (Yellow); Glucose Urine UA Negative (Negative); Ketones Urine Negative (Negative); Leukocyte Esterase Ur 1+ LEU/UL (Negative); Nitrate Urine Negative (Negative); Protein Urine 3+ (Negative); Specific Grav Ur 1.025 (1.010-1.020); Urobilinogen Urine 0.2 mg/dL (0.2-1.0)
[2024-07-26 21:52] VITALS: BP 156/89; PULSE 71; RESP 18; O2SAT 94
[2024-07-26 21:53] LABS: Appearance Urine Cloudy (Clear); RBC Urine >75 /hpf (0-2); WBC Clumps Urine Present /hpf; WBC Urine 16-20 /hpf (0-3)
[2024-07-26 21:54] LABS: Bacteria Urine 2+ /hpf; Squamous Epithelial Cell Urine Occasional /hpf (Few)
--- NOTE | 2024-07-26 22:07 | ED.GENADULT ---
HPI - General Adult General Chief complaint: Urogenital-Male Stated complaint: catheter discomfort History of Present Illness HPI narrative: patient with a history of BPH. He is following with Urology. They placed a Hicks catheter approximately 3-4 weeks ago due to patient having urinary retention. The patient is scheduled for a TURP or to her like procedure in the next 1-2 weeks and he has follow-up already scheduled with his urologist. The patient presents tonight reporting that he has been unable to get this Hicks swabbed out and his understanding was that it should be exchanged before the end of the month. He also reports some pressure and feeling like the Hicks is leaking. He denies suprapubic pain or other urinary symptoms. Patient is currently on a course of doxycycline due to minor skin infection in his lower left extremity. Denies fever, chills, rigors, nausea, vomiting, diarrhea. He denies chest pain or shortness of breath. ? Related Data Home Medications Medication Instructions Recorded Confirmed finasteride 5 mg tablet 5 mg PO DAILY 01/01/23 05/06/24 rosuvastatin 20 mg tablet 40 mg PO DAILY 01/01/23 05/06/24 coenzyme Q10 100 mg capsule 100 mg PO DAILY 01/16/23 05/06/24 (CoQ-10) metoprolol succinate 25 mg 50 mg PO HS 01/16/23 05/06/24 tablet,extended release 24 hr pantoprazole 40 mg tablet,delayed 40 mg PO DAILY 01/16/23 05/06/24 release aspirin 81 mg tablet,delayed 81 mg PO DAILY 04/19/24 05/06/24 release tamsulosin 0.4 mg capsule 0.4 mg PO DAILY 04/19/24 05/06/24 amiodarone 200 mg tablet 200 mg PO DAILY 04/26/24 05/06/24 rivaroxaban 20 mg tablet (Xarelto) 20 mg PO DAILY 05/06/24 05/06/24 Allergies Allergy/AdvReac Type Severity Reaction Status Date / Time Penicillins Allergy Unknown Hives Verified 05/06/24 15:55 FORMERLY [facility], [facility] Past Medical History Medical History Aftercare following right shoulder joint replacement surgery Arthritis BPH (benign prostatic hyperplasia) CAD (coronary artery disease) Chronic GERD Chronic lymphocytic leukemia DVT (deep venous thrombosis) Hyperlipemia Hypertension Kidney stone Overweight (BMI 25.0-29.9) Thrombocytopathia Surgical History Surgical History History of endoscopic harvesting of vein History of reverse total replacement of left shoulder joint (~02/13/23) History of reverse total replacement of right shoulder joint Hx of CABG Presence of right artificial knee joint S/P CABG x 4 Family History Family History Mother Cerebrovascular accident Social History Social History 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 Smoking packs per day: 1 Smoking cigarettes per day: 20.0 Years smoked: 4 Smoking pack-years: 4.00 Smoking status: Never smoker Tobacco type: cigarettes Second hand tobacco smoke exposure: No Smoking end date: 10/08/75 Alcohol intake: never Drinks per week: 1 Substance use: never Do You Feel Safe in your Home?: Yes Lack of Transportation: No Lack of Food: Never True Current Housing: I Have Housing Concerned About Future Housing: No Difficulty Paying Gas/Electric Bills: No Difficulty Paying for Meds: No Currently Unemployed: No Education: Decline to Answer Difficulty w/ Childcare or Family Care: No Living arrangements: with family Spiritual care concerns: No Exam Narrative: GEN: Awake, alert, and appropriate to situation. Well appearing, well nourished, nontoxic, NAD. HEENT: No rhinorrhea noted, mucous membranes moist. No scleral icterus or conjunctival injection. CV: Normal rate, regular rhythm, S1S2 no M/G/R. 2+ distal pulses all extremities. No peripheral edema noted. PULM: Non-labored respiration. Clear to auscultation bilaterally. No wheezes, rales, rhonchi. GI: Abdomen s
[2024-07-26] MEDS: CEPHALEXIN 500 MG CAPSULE PO (22:22)
--- NOTE | 2024-07-29 12:20 | PC.NURSE ---
PRELIMINARY URINE CULTURE REPORT: ENTEROCOCCUS SPECIES. PATIENT DISCHARGED ON CEPHALEXIN 500MG; 1 PO Q12H, X5 DAYS. PATIENT WAS ALREADY ON DOXYCYCLINE THAT HE WAS INSTRUCTED TO CONTINUE. PATIENT WAS SEEN AT UROLOGIST OFFICE 07/28/2024 PER DISCHARGE INFORMATION. WAITING ON FINAL REPORT PER ERP DR. KERN
--- NOTE | 2024-07-30 15:09 | PC.NURSE ---
FINAL URINE CULTURE REPORT: ENTEROCOCCUS SPECIES. PATIENT DISCHARGED ON CEPHALEXIN 500MG; 1 PO Q12H, X5 DAYS. PATIENT WAS ALREADY ON DOXYCYCLINE THAT HE WAS INSTRUCTED TO CONTINUE. PATIENT WAS TO F/U AT UROLOGIST OFFICE 07/28/2024 PER DISCHARGE INFORMATION. NO CHANGE IN CURRENT THERAPY PER DR LOPEZ.
== END 2024-07-26 22:42 | disposition home or self-care (01) ==
PROVIDERS: Emergency Provider Family Medicine; PCP Internal Medicine
DX: N39.0 Urinary tract infection, site not specified (principal); N40.0 Benign prostatic hyperplasia without lower urinary tract symptoms; I25.10 Atherosclerotic heart disease of native coronary artery without angina pectoris; E78.5 Hyperlipidemia, unspecified; I10 Essential (primary) hypertension; Z86.718 Personal history of other venous thrombosis and embolism; Z87.891 Personal history of nicotine dependence
CPT/HCPCS: 51702; 81001; 87086; 87181; 99283; A9270

== ENCOUNTER 2024-08-14 07:35 | Emergency (ER) | payer MEDICARE, OTHER, SELFPAY ==
[2024-08-14 07:39] VITALS: BP 173/96; PULSE 73; RESP 18; TEMP 35.7; O2SAT 97
[2024-08-14 08:17] VITALS: BP 157/95; PULSE 65; RESP 18; TEMP 36.1; O2SAT 97
[2024-08-14 08:30] VITALS: BP 142/80; PULSE 65; RESP 20; O2SAT 97
[2024-08-14 08:35] LABS: Hematocrit 30.9 % (37.0-46.0); Hemoglobin 9.4 g/dL (12.4-15.3); Immature Platelet Fraction Pct 1.9 % (1.0-7.0); Mean Corpuscular HGB Conc 30.4 g/dL (32-36); Mean Corpuscular Hemoglobin 26.3 pg (27.0-31.0); Mean Corpuscular Volume 86.3 fL (78.0-102.0); Mean Platelet Volume 10.5 fl (8.7-11.0); Platelet Count Result 78 K/mm3 (150-420); Red Blood Count 3.58 M/mm3 (4.70-6.10); Red Cell Distribution Width 17.1 % (11.6-14.4)
[2024-08-14 08:36] LABS: White Blood Count 33.1 K/mm3 (4.8-10.8)
[2024-08-14 08:47] LABS: Chloride 107 mmol/L (98-108); INR 1.3; Partial Thromboplastin Time 32.8 Sec (23.9-30.70); Potassium 3.9 mmol/L (3.5-5.1); Prothrombin Time 14.3 Seconds (9.50-12.1); Sodium 143 mmol/L (136-145)
[2024-08-14 08:48] LABS: Alanine Aminotransferase 24 U/L (16-63); Albumin Level 3.5 g/dL (3.4-5.0); Alkaline Phosphatase 84 U/L (46-116); Anion Gap 8 mmol/L (4-12); Aspartate Amino Transferase 29 U/L (15-37); Bilirubin,Total 0.6 mg/dL (0.00-1.00); Blood Urea Nitrogen 32 mg/dL (7-18); Calcium 9.2 mg/dL (8.5-10.1); Carbon Dioxide 28 mmol/L (21-32); Estimated CRCL calculation 35 ml/min; Estimated Glomerular Filt Rate 34; Glucose 120 mg/dL (70-99); Osmolality Calculated 303 mOsm/kg (285-295); Total Protein 6.5 g/dL (6.4-8.2)
[2024-08-14 08:49] LABS: Band Neutrophils Percent 0 % (0-6); Eosinophils Absolute Manual 0.66 K/mm3 (0.02-0.50); Eosinophils Percent Manual 2 % (1-6); Lymphocytes Absolute Manual 28.13 K/mm3 (1.1-4.5); Lymphocytes Percent Manual 85 % (18-44); Monocytes Absolute Manual 0.66 K/mm3 (0.1-0.90); Monocytes Percent Manual 2 % (3-9); Neutrophils Absolute Manual 3.64 K/mm3 (1.3-6.7); Neutrophils Percent Manual 11 % (46-73); Platelet Estimate Decreased (Adequate); Total Cells Counted 100
--- NOTE | 2024-08-14 08:58 | ED_ITS ---
HPI - Male Genitourinary General Chief complaint: Urogenital-Male Stated complaint: esteban leaking Source: patient and family Mode of arrival: ambulatory Limitations: no limitations History of Present Illness HPI Narrative: this is a 79-year-old male that presents with some indwelling Esteban that has some urinary retention and some blood clots in the Esteban catheter. Has been having suprapubic pressure, patient has a history of a DVT and is on Xarelto history of CLL L. Otherwise the patient denies any fever chills no chest pain no shortness of breath no flank pain. Patient does have follow-up appointment with his urologist. Onset (ago): hour(s) Duration: intermittent Severity: mild Related Data Home Medications Medication Instructions Recorded Confirmed finasteride 5 mg tablet 5 mg PO DAILY 01/01/23 08/14/24 rosuvastatin 20 mg tablet 40 mg PO DAILY 01/01/23 08/14/24 coenzyme Q10 100 mg capsule 100 mg PO DAILY 01/16/23 08/14/24 (CoQ-10) metoprolol succinate 25 mg 50 mg PO HS 01/16/23 08/14/24 tablet,extended release 24 hr pantoprazole 40 mg tablet,delayed 40 mg PO DAILY 01/16/23 08/14/24 release aspirin 81 mg tablet,delayed 81 mg PO DAILY 04/19/24 08/14/24 release tamsulosin 0.4 mg capsule 0.4 mg PO DAILY 04/19/24 08/14/24 amiodarone 200 mg tablet 200 mg PO DAILY 04/26/24 08/14/24 rivaroxaban 20 mg tablet (Xarelto) 20 mg PO DAILY 05/06/24 08/14/24 Allergies Allergy/AdvReac Type Severity Reaction Status Date / Time Penicillins Allergy Unknown Hives Verified 05/06/24 15:55 Review of Systems Review of Systems: All systems reviewed & are unremarkable except as noted in HPI and below PMFSH Past Medical History Medical History Aftercare following right shoulder joint replacement surgery Arthritis BPH (benign prostatic hyperplasia) CAD (coronary artery disease) Chronic GERD Chronic lymphocytic leukemia DVT (deep venous thrombosis) Hyperlipemia Hypertension Kidney stone Overweight (BMI 25.0-29.9) Thrombocytopathia Surgical History Surgical History History of endoscopic harvesting of vein History of reverse total replacement of left shoulder joint (~02/13/23) History of reverse total replacement of right shoulder joint Hx of CABG Presence of right artificial knee joint S/P CABG x 4 Family History Family History Mother Cerebrovascular accident Social History Social History 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 Smoking packs per day: 1 Smoking cigarettes per day: 20.0 Years smoked: 4 Smoking pack-years: 4.00 Smoking status: Never smoker Tobacco type: cigarettes Second hand tobacco smoke exposure: No Smoking end date: 10/08/75 Alcohol intake: never Drinks per week: 1 Substance use: never Do You Feel Safe in your Home?: Yes Lack of Transportation: No Lack of Food: Never True Current Housing: I Have Housing Concerned About Future Housing: No Difficulty Paying Gas/Electric Bills: No Difficulty Paying for Meds: No Currently Unemployed: No Education: Decline to Answer Difficulty w/ Childcare or Family Care: No Living arrangements: with family Spiritual care concerns: No Exam Const: General: healthy appearing, no acute distress and alert Nutritional Appearance: well nourished Limitations: no limitations Resp: Effort & Inspection: normal respiratory effort Auscultation: clear to auscultation bilaterally Cardio: Rate: regular rate Rhythm: regular rhythm Heart sounds: Murmur heart sound present GI: GI Palp: Yes Soft to palpation Auscultation: normal bowel sounds : Other: Bladder tenderness with palpation. Urinary Catheter: Urinary Catheter: patent and draining, urine red and urine with clots Back/Spine/Pelvis: Back: no CVA tenderness Skin: General skin exam: normal color Rashes: no rashes Course Course Emergency Course: Esteban catheter was readjusted and 500cc of urine was released patient bladder fullness cells significantly improved otherwise clot straining and some blood around the meatus of his penis. Patient blood work performed [place] [address] which is significantly better than previous white blood counts given his history of CLL. Patient other blood work he has some CMP performed which shows a creatinine of 1.93 which is similar to previous kidney function. Otherwise the patient is currently doing well his bladder pressure has significantly improved. Vital Signs Vital signs: Vital Signs Temperature 35.7 C L 08/14/24 07:39 Pulse Rate 73 08/14/24 07:39 Respiratory Rate 18 08/14/24 07:39 Blood Pressure 173/96 H 08/14/24 07:39 Pulse Oximetry 97 08/14/24 07:39 Oxygen Delivery Room Air 08/14/24 07:39 Temperature 36.8 C 08/14/24 09:30 Pulse Rate 59 L 08/14/24 09:30 Respiratory Rate 20 08/14/24 09:30 Blood Pressure 150/82 H 08/14/24 09:30 Pulse Oximetry 94 08/14/24 09:30 Oxygen Delivery Room Air 08/14/24 09:30 MDM - Male Genitourinary Lab Data 08/14/24 08:28 08/14/24 08:28 Labs: Lab Results 08/14/24 08/14/24 08/14/24 Range/Units 07:46 08:28 08:36 WBC 33.1 H* (4.8-10.8) K/mm3 RBC 3.58 L (4.70-6.10) M/mm3 Hgb 9.4 L (12.4-15.3) g/dL Hct 30.9 L (37.0-46.0) % MCV 86.3 (78.0-102.0) fL MCH 26.3 L (27.0-31.0) pg MCHC 30.4 L (32-36) g/dL RDW 17.1 H (11.6-14.4) % Plt Count 78 L (150-420) K/mm3 MPV 10.5 (8.7-11.0) fl Immature Gran % (Auto) Not Reportable Neut % (Auto) Not Reportable Lymph % (Auto) Not Reportable [place] % (Auto) Not Reportable Eos % (Auto) Not Reportable Baso % (Auto) Not Reportable Lymph # (Auto) Not Reportable [place] # (Auto) Not Reportable Eos # (Auto) Not Reportable Baso # (Auto) Not Reportable Abs Immat Gran (auto) Not Reportable Absolute Neuts (auto) Not Reportable Absolute Nucleated RBC Not Reportable Total Counted 100 Neutrophils % (Manual) 11 L (46-73) % Band Neutrophils % 0 (0-6) % Lymphocytes % (Manual) 85 H (18-44) % Monocytes % (Manual) 2 L (3-9) % Eosinophils % (Manual) 2 (1-6) % Nucleated RBC % Not Reportable Abs Neuts (Manual) 3.64 (1.3-6.7) K/mm3 Abs Lymphs (Manual) 28.13 H (1.1-4.5) K/mm3 Abs Monocytes (Manual) 0.66 (0.1-0.90) K/mm3 Absolute Eos (Manual) 0.66 H (0.02-0.50) K/mm3 Platelet Estimate Decreased (Adequate) % Immature Plt Fraction 1.9 (1.0-7.0) % Schistocytes Not Reportable PT 14.3 H (9.50-12.1) Seconds INR 1.3 APTT 32.8 H (23.9-30.70) Sec Sodium 143 (136-145) mmol/L Potassium 3.9 (3.5-5.1) mmol/L Chloride 107 (98-108) mmol/L Carbon Dioxide 28 (21-32) mmol/L Anion Gap 8 (4-12) mmol/L BUN 32 H (7-18) mg/dL Creatinine 1.93 H (0.70-1.30) mg/dL Estim Creat Clear Calc 35 ml/min Estimated GFR 34 L (59 - ) Glucose 120 H (70-99) mg/dL Calculated Osmolality 303 H (285-295) mOsm/kg Lactic Acid 0.9 (0.4-2.0) mmol/L Calcium 9.2 (8.5-10.1) mg/dL Total Bilirubin 0.6 (0.00-1.00) mg/dL AST 29 (15-37) U/L ALT 24 (16-63) U/L Alkaline Phosphatase 84 (46-116) U/L Total Protein 6.5 (6.4-8.2) g/dL Albumin 3.5 (3.4-5.0) g/dL Urine Color Light yellow (Yellow) Urine Appearance Cloudy A (Clear) Urine pH 7.0 (5.0-8.0) Ur Specific [place] 1.015 (1.010-1.020) Urine Protein 2+ H (Negative) Urine Glucose (UA) Negative (Negative) Urine Ketones Negative (Negative) Ur Blood (Man) 3+ H (Negative) Urine Nitrate Negative (Negative) Urine Bilirubin Negative (Negative) Urine Urobilinogen 0.2 (0.2-1.0) mg/dL Leukocyte Esterase Rfl Negative (Negative) JOSH/UL Urine RBC None seen (0-2) /hpf Urine WBC >100 (0-3) /hpf Urine Bacteria Trace (None) /hpf Critical Care Time Critical Care Time Critical Care Time: No Discharge Plan Discharge Clinical Impression: Acute on chronic urinary retention, Thrombocytopathia Patient Disposition: Home, Self-Care Condition: Stable Instructions: Antibiotic Form, Urinary Retention in Men (ED) Additional Instructions: advised to keep follow-up appointment with urologist and follow-up primary within the next 2 to 3 days for further evaluation and treatment. Prescriptions: No Action aspirin 81 mg Tablet,Delayed Release (Dr/Ec) 81 mg PO DAILY tamsulosin 0.4 mg capsule 0.4 mg PO DAILY amiodarone 200 mg tablet 200 mg PO DAILY finasteride 5 mg tablet 5 mg PO DAILY rosuvastatin 20 mg tablet 40 mg PO DAILY Xarelto 20 mg tablet 20 mg PO DAILY furosemide 40 mg Tablet 40 mg PO DAILY Qty: 30 0RF Entresto 24-26 mg Tablet 1 tablet PO Q12HR Qty: 60 0RF spironolactone 25 mg tablet 12.5 mg PO DAILY Qty: 30 0RF potassium chloride 20 mEq tablet extended release 20 meq PO DAILY Qty: 30 0RF pantoprazole 40 mg tablet,delayed release (DR/EC) 40 mg PO DAILY coenzyme Q10 [CoQ-10] 100 mg Capsule 100 mg PO DAILY metoprolol succinate 25 mg tablet extended release 24 hr 50 mg PO HS Follow-up/Referrals: Kyle Hendricks MD [Primary Care Provider] - Time of Disposition: 09:32
[2024-08-14 09:20] LABS: Add Urine Microscopic? YES; Appearance Urine Cloudy (Clear); Bilirubin Urine Negative (Negative); Blood Urine 3+ (Negative); Color Urine Light Yellow (Yellow); Glucose Urine UA Negative (Negative); Ketones Urine Negative (Negative); Leukocyte Esterase Ur Negative LEU/UL (Negative); Nitrate Urine Negative (Negative); Protein Urine 2+ (Negative); Specific Grav Ur 1.015 (1.010-1.020); Urobilinogen Urine 0.2 mg/dL (0.2-1.0)
[2024-08-14 09:26] LABS: Bacteria Urine Trace /hpf; RBC Urine None seen /hpf (0-2); WBC Urine >100 /hpf (0-3)
[2024-08-14 09:30] VITALS: BP 150/82; PULSE 59; RESP 20; TEMP 36.8; O2SAT 94
[2024-08-14 09:41] LABS: Lactic Acid Reflex 0.9 mmol/L (0.4-2.0)
== END 2024-08-14 09:41 | disposition home or self-care (01) ==
PROVIDERS: Emergency Provider Emergency Medicine; PCP Internal Medicine
DX: R33.9 Retention of urine, unspecified (principal); D69.6 Thrombocytopenia, unspecified; I25.10 Atherosclerotic heart disease of native coronary artery without angina pectoris; I10 Essential (primary) hypertension; F17.210 Nicotine dependence, cigarettes, uncomplicated; Z79.01 Long term (current) use of anticoagulants; Z85.6 Personal history of leukemia; Z79.899 Other long term (current) drug therapy
CPT/HCPCS: 36415; 80053; 81001; 83605; 85025; 85055; 85610; 85730; 99283

== ENCOUNTER 2024-08-25 09:30 | Outpatient (RCR) | payer MEDICARE, OTHER, SELFPAY ==
[2024-04-28 15:24] VITALS: BP 140/100; PULSE 87; RESP 16; O2SAT 97; BMI 25.9
== END 2024-08-26 23:59 | disposition home or self-care (01) ==
PROVIDERS: PCP Internal Medicine; Visit Provider Specialist
DX: Z95.1 Presence of aortocoronary bypass graft (principal)
CPT/HCPCS: 93798

== ENCOUNTER 2024-08-29 09:30 | Outpatient (RCR) | payer MEDICARE, OTHER, SELFPAY ==
[2024-08-27 00:02] VITALS: BP 140/100; PULSE 87; RESP 16; O2SAT 97; BMI 25.9
== END 2024-09-03 13:24 | disposition home or self-care (01) ==
PROVIDERS: PCP Internal Medicine; Visit Provider Specialist
DX: Z95.1 Presence of aortocoronary bypass graft (principal)
CPT/HCPCS: 93798

== ENCOUNTER 2024-10-01 03:11 | Emergency (ER) | payer MEDICARE, OTHER, SELFPAY ==
[2024-10-01 03:11] VITALS: BP 172/94; PULSE 83; RESP 22; TEMP 36.6; O2SAT 100
--- NOTE | 2024-10-01 03:15 | PC.NURSE ---
BLADDER SCAN COMPLETED BY PATRICIA LEZAMA. [address] LOPEZ NOTIFIED.
--- NOTE | 2024-10-01 03:16 | ED.MALEGU ---
HPI - Male Genitourinary General Chief complaint: Urogenital-Male Stated complaint: Post Surgery Issues Time Seen by Provider: 10/01/24 03:15 Source: patient Mode of arrival: ambulatory Limitations: no limitations History of Present Illness HPI Narrative: 79-year-old male with a history of CAD status post CABG, AFib on Xarelto, , DVT, BPH, status post surgery 1 week ago and restarted on Xarelto yesterday presents to the ED with -- hematuria since yesterday -- retention of urine. No urine output since yesterday afternoon. A bladder scan revealed residual urine of 644 mL. -- Suprapubic abdominal pain no fever or chills MD Complaint: other ( hematuria, retention of urine) Onset (ago): day(s) ( 1 day) Duration: constant Location: abdomen ( suprapubic) Severity: severe Quality: aching Relieving factors: none Exacerbating factors: none Associated symptoms: Reports blood in urine Related Data Home Medications ?Medication ?Instructions ?Recorded ?Confirmed ?Last Taken ?Type finasteride 5 mg tablet 5 mg PO DAILY 01/01/23 08/14/24 04/25/24 History rosuvastatin 20 mg tablet 40 mg PO DAILY 01/01/23 08/14/24 04/25/24 History coenzyme Q10 100 mg capsule 100 mg PO DAILY 01/16/23 08/14/24 04/25/24 History (CoQ-10) metoprolol succinate 25 mg 50 mg PO HS 01/16/23 08/14/24 04/25/24 History tablet,extended release 24 hr pantoprazole 40 mg tablet,delayed 40 mg PO DAILY 01/16/23 08/14/24 04/25/24 History release aspirin 81 mg tablet,delayed 81 mg PO DAILY 04/19/24 08/14/24 04/25/24 History release tamsulosin 0.4 mg capsule 0.4 mg PO DAILY 04/19/24 08/14/24 04/25/24 History amiodarone 200 mg tablet 200 mg PO DAILY 04/26/24 08/14/24 Unknown History rivaroxaban 20 mg tablet (Xarelto) 20 mg PO DAILY 05/06/24 08/14/24 Unknown History Allergies Allergy/AdvReac Type Severity Reaction Status Date / Time Penicillins Allergy Unknown Hives Verified 10/01/24 05:27 Review of Systems Review of Systems: All systems reviewed & are unremarkable except as noted in HPI and below Constitutional: Constitutional: Reports as per HPI and Reports no additional constitutional complaints Eyes: Eyes: Reports as per HPI and Reports no additional eye complaints ENT: Reports system reviewed and no additional complaints, except as documented and Reports as per HPI Cardiovascular: Cardiovascular: Reports as per HPI and Reports no additional cardiovascular complaints Respiratory: Respiratory: Reports as per HPI and Reports no additional respiratory complaints Gastrointestinal: Gastrointestinal: Reports as per HPI and Reports no additional gastrointestinal complaints Genitourinary: Genitourinary: Reports as per HPI Comments: retention of urine with hematuria and suprapubic pain Musculoskeletal: Musculoskeletal: Reports no additional musculoskeletal complaints and Reports as per HPI Integumentary/Breasts: Skin/Breast: Reports system reviewed and no additional complaints, except as docu and Reports as per HPI Neurologic: Reports system reviewed and no additional complaints, except as documented and Reports as per HPI Psychiatric: Psychiatric: Reports no additional psychiatric complaints and Reports as per HPI Endocrine: Endocrine: Reports no additional endocrine complaints and Reports as per HPI Hematologic/Lymphatic: Hematologic/Lymphatic: Reports no additional hematologic/lymphatic complaints and Reports as per HPI Comments: hematuria Allergic/Immunologic: Allergic/Immunologic: Reports no additional allergic/immunologic complaints and Reports as per HPI PMFSH Past Medical History Medical History CAD (coronary artery disease) Thrombocytopathia Chronic lymphocytic leukemia Overweight (BMI 25.0-29.9) Arthritis BPH (benign prostatic hyperplasia) Chronic GERD Aftercare following right shoulder joint replacement surgery DVT (deep venous thrombosis) Kidney stone Hyperlipemia Hypertension Surgical History Surgical History S/P TURP History of endoscopic harvesting of vein S/P CABG x 4 Hx of CABG History of reverse total replacement of right shoulder joint History of reverse total replacement of left shoulder joint (~02/13/23) Presence of right artificial knee joint Family History Family History Mother Cerebrovascular accident Social History Social History 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 Smoking packs per day: 1 Smoking cigarettes per day: 20.0 Years smoked: 4 Smoking pack-years: 4.00 Smoking status: Never smoker Tobacco type: cigarettes Second hand tobacco smoke exposure: No Smoking end date: 10/08/75 Alcohol intake: never Drinks per week: 1 Substance use: never Do You Feel Safe in your Home?: Yes Lack of Transportation: No Lack of Food: Never True Current Housing: I Have Housing Concerned About Future Housing: No Difficulty Paying Gas/Electric Bills: No Difficulty Paying for Meds: No Currently Unemployed: No Education: Decline to Answer Difficulty w/ Childcare or Family Care: No Living arrangements: with family Spiritual care concerns: No Exam Narrative: blood pressure 172/94. Afebrile. Oxygen saturation of 100% on room air. Const: General: ill appearing Nutritional Appearance: well nourished Limitations: no limitations HENMT: Head: normal to inspection Face/Nose/Sinus: Normal external nose present Face and sinus: normal facial exam Mouth: Yes Normal oral and palatal mucosa present Throat: posterior oropharynx normal Eyes: Conjunctivae: conjunctivae normal Pupils: Equal, round and reactive pupils present Direct Ophthalmoscopy: no photophobia Neck: Neck: normal visual inspection, no lymphadenopathy and no meningeal signs Chest: Chest palpation & inspection: normal inspection of the chest Resp: Effort & Inspection: normal respiratory effort Auscultation: clear to auscultation bilaterally Cardio: Rate: regular rate Rhythm: abnormal rhythm GI: GI Palp: Yes Soft to palpation Auscultation: normal bowel sounds Other: Suprapubic tenderness with bladder enlargement. : General: Yes Bladder palpation abnormal and Yes no CVA tenderness Back/Spine/Pelvis: Back: no CVA tenderness Skin: General skin exam: normal color Rashes: no rashes Wounds: no wounds Neuro: General: patient oriented x3, moves all extremities and no meningeal signs Cranial nerves: Yes CN's II-XII intact bilaterally Speech: normal speech Gait exam (Neuro): Normal gait present Extrem: General: normal to inspection and no clubbing, cyanosis or edema Psych: Mental Status: mental status grossly normal Affect: normal affect Attitude: cooperative Course Course Emergency Course: Status post TURP coagulopathy hematuria with retention of urine- 3 way cannula placed and obtained bloody urine without any clots. Started CBI-- no blood clots noted in the urine which is currently pinkish. acute on chronic renal failure-- patient's BUN/ creatinine increased from 32/1.9 to 37/2.17 acute on chronic anemia discussed with Dr Auguste Pt has been accepted by Dr. Jefferson Vital Signs Vital signs: Vital Signs Temperature 36.6 C 10/01/24 03:11 Pulse Rate 83 10/01/24 03:11 Respiratory Rate 22 H 10/01/24 03:11 Blood Pressure 172/94 H 10/01/24 03:11 Pulse Oximetry 100 10/01/24 03:11 Oxygen Delivery Room Air 10/01/24 03:11 Temperature 36.9 C 10/01/24 05:25 Pulse Rate 75 10/01/24 05:25 Respiratory Rate 18 10/01/24 05:25 Blood Pressure 127/74 10/01/24 05:25 Pulse Oximetry 100 10/01/24 05:25 Oxygen Delivery Room Air 10/01/24 05:25 MDM - Male Genitourinary MDM Narrative Medical decision making narrative: hematuria with retention of urine status post TURP CLL acute on chronic anemia acute on chronic renal failure Differential Diagnosis Differential diagnosis: Likely urinary tract infection Medical Records Attestation: I reviewed the patient's medical records. Lab Data Attestation: I reviewed the patient's lab results. 10/01/24 03:44 10/01/24 03:44 Labs: Lab Results 10/01/24 Range/Units 03:44 WBC 42.8 H* (4.8-10.8) K/mm3 RBC 3.09 L (4.70-6.10) M/mm3 Hgb 8.2 L (12.4-15.3) g/dL Hct 26.8 L (37.0-46.0) % MCV 86.7 (78.0-102.0) fL MCH 26.5 L (27.0-31.0) pg MCHC 30.6 L (32-36) g/dL RDW 16.3 H (11.6-14.4) % Plt Count 86 L (150-420) K/mm3 MPV 10.9 (8.7-11.0) fl Immature Gran % (Auto) Not Reportable Neut % (Auto) Not Reportable Lymph % (Auto) Not Reportable [place] % (Auto) Not Reportable Eos % (Auto) Not Reportable Baso % (Auto) Not Reportable Lymph # (Auto) Not Reportable [place] # (Auto) Not Reportable Eos # (Auto) Not Reportable Baso # (Auto) Not Reportable Abs Immat Gran (auto) Not Reportable Absolute Neuts (auto) Not Reportable Absolute Nucleated RBC Not Reportable Total Counted 100 Neutrophils % (Manual) 9 L (46-73) % Band Neutrophils % 0 (0-6) % Lymphocytes % (Manual) 87 H (18-44) % Monocytes % (Manual) 2 L (3-9) % Eosinophils % (Manual) 2 (1-6) % Basophils % (Manual) 0 (0-1) % Nucleated RBC % Not Reportable Abs Neuts (Manual) 3.85 (1.3-6.7) K/mm3 Abs Lymphs (Manual) 37.23 H (1.1-4.5) K/mm3 Abs Monocytes (Manual) 0.85 (0.1-0.90) K/mm3 Absolute Eos (Manual) 0.85 H (0.02-0.50) K/mm3 Abs Basophils (Manual) 0.00 (0-0.1) K/mm3 Platelet Estimate Decreased (Adequate) % Immature Plt Fraction 1.4 (1.0-7.0) % Schistocytes Not Reportable Sodium 142 (136-145) mmol/L Potassium 4.1 (3.5-5.1) mmol/L Chloride 105 (98-108) mmol/L Carbon Dioxide 27 (21-32) mmol/L Anion Gap 10 (4-12) mmol/L BUN 37 H (7-18) mg/dL Creatinine 2.17 H (0.70-1.30) mg/dL Estim Creat Clear Calc 47 ml/min Estimated GFR 30 L (59 - ) Glucose 123 H (70-99) mg/dL Calculated Osmolality 303 H (285-295) mOsm/kg Lactic Acid 1.1 (0.4-2.0) mmol/L Calcium 9.1 (8.5-10.1) mg/dL Total Bilirubin 0.4 (0.00-1.00) mg/dL AST 36 (15-37) U/L ALT 28 (16-63) U/L Alkaline Phosphatase 92 (46-116) U/L Total Protein 6.5 (6.4-8.2) g/dL Albumin 3.7 (3.4-5.0) g/dL Discharge Plan Discharge Clinical Impression: Acute retention of urine, S/P TURP, Medication induced coagulopathy Hematuria Qualifiers: Hematuria type: gross Qualified Code(s): R31.0 - Gross hematuria Patient Disposition: Still a Patient Condition: Stable Additional Instructions: transfer the patient to [facility] in [address] [place] [id number]. patient has been accepted by Patient Language: Israeli Prescriptions: No Action aspirin 81 mg Tablet,Delayed Release (Dr/Ec) 81 mg PO DAILY tamsulosin 0.4 mg capsule 0.4 mg PO DAILY amiodarone 200 mg tablet 200 mg PO DAILY finasteride 5 mg tablet 5 mg PO DAILY rosuvastatin 20 mg tablet 40 mg PO DAILY Xarelto 20 mg tablet 20 mg PO DAILY furosemide 40 mg Tablet 40 mg PO DAILY Qty: 30 0RF Entresto 24-26 mg Tablet 1 tablet PO Q12HR Qty: 60 0RF spironolactone 25 mg tablet 12.5 mg PO DAILY Qty: 30 0RF potassium chloride 20 mEq tablet extended release 20 meq PO DAILY Qty: 30 0RF pantoprazole 40 mg tablet,delayed release (DR/EC) 40 mg PO DAILY coenzyme Q10 [CoQ-10] 100 mg Capsule 100 mg PO DAILY metoprolol succinate 25 mg tablet extended release 24 hr 50 mg PO HS Follow-up/Referrals: Kyle Hendricks MD [Primary Care Provider] - Time of Disposition: 06:41
[2024-10-01 03:50] LABS: Hematocrit 26.8 % (37.0-46.0); Hemoglobin 8.2 g/dL (12.4-15.3); Immature Platelet Fraction Pct 1.4 % (1.0-7.0); Mean Corpuscular HGB Conc 30.6 g/dL (32-36); Mean Corpuscular Hemoglobin 26.5 pg (27.0-31.0); Mean Corpuscular Volume 86.7 fL (78.0-102.0); Mean Platelet Volume 10.9 fl (8.7-11.0); Platelet Count Result 86 K/mm3 (150-420); Red Blood Count 3.09 M/mm3 (4.70-6.10); Red Cell Distribution Width 16.3 % (11.6-14.4)
[2024-10-01 03:53] LABS: White Blood Count 42.8 K/mm3 (4.8-10.8)
[2024-10-01 04:00] LABS: Alanine Aminotransferase 28 U/L (16-63); Albumin Level 3.7 g/dL (3.4-5.0); Alkaline Phosphatase 92 U/L (46-116); Anion Gap 10 mmol/L (4-12); Aspartate Amino Transferase 36 U/L (15-37); Bilirubin,Total 0.4 mg/dL (0.00-1.00); Blood Urea Nitrogen 37 mg/dL (7-18); Calcium 9.1 mg/dL (8.5-10.1); Carbon Dioxide 27 mmol/L (21-32); Chloride 105 mmol/L (98-108); Estimated CRCL calculation 47 ml/min; Estimated Glomerular Filt Rate 30; Glucose 123 mg/dL (70-99); Osmolality Calculated 303 mOsm/kg (285-295); Potassium 4.1 mmol/L (3.5-5.1); Sodium 142 mmol/L (136-145); Total Protein 6.5 g/dL (6.4-8.2)
[2024-10-01 04:05] LABS: Band Neutrophils Percent 0 % (0-6); Basophils Percent Manual 0 % (0-1); Eosinophils Absolute Manual 0.85 K/mm3 (0.02-0.50); Eosinophils Percent Manual 2 % (1-6); Lymphocytes Absolute Manual 37.23 K/mm3 (1.1-4.5); Lymphocytes Percent Manual 87 % (18-44); Monocytes Absolute Manual 0.85 K/mm3 (0.1-0.90); Monocytes Percent Manual 2 % (3-9); Neutrophils Absolute Manual 3.85 K/mm3 (1.3-6.7); Neutrophils Percent Manual 9 % (46-73); Platelet Estimate Decreased (Adequate); Total Cells Counted 100
[2024-10-01 04:17] LABS: Lactic Acid Reflex 1.1 mmol/L (0.4-2.0)
[2024-10-01] MEDS: TRANEXAMIC ACID 1,000MG/ISO100 1,000 MG/100 ML BAG 200 MG IVPB (04:25)
--- NOTE | 2024-10-01 04:30 | PC.NURSE ---
CBI INFUSING. LIGHT RED COLOR IN CAMERON TUBING AT THIS TIME. FAMILY AT THE BEDSIDE. CALL LIGHT IN REACH.
--- NOTE | 2024-10-01 04:53 | PC.NURSE ---
CBI CONTINUES TO INFUSE. FAMILY IS AT THE BEDSIDE. PATIENT DENIES ANY OTHER NEEDS. OFFERED ANOTHER WARM BLANKET. PATIENT DOES NOT WANT ONE AT THIS TIME. CALL LIGHT IN REACH
[2024-10-01 05:25] VITALS: BP 127/74; PULSE 75; RESP 18; TEMP 36.9; O2SAT 100
--- NOTE | 2024-10-01 05:25 | PC.NURSE ---
PATIENT RESTING ON STRETCHER. LAUGHING AND JOKING WITH STAFF. CBI CONTINUES TO INFUSE. CRANBERRY COLOR NOTED TO CAMERON BAG. PATIENT REPOSITIONED FOR COMFORT. DENIES ANY NEEDS AT THIS TIME. CALL LIGHT IN REACH.
--- NOTE | 2024-10-01 06:05 | PC.NURSE ---
PATIENT IS RESTING ON STRETCHER WITH FAMILY AT THE BEDSIDE. CBI CONTINUES TO INFUSE. CALL LIGHT IN REACH.
--- NOTE | 2024-10-01 06:40 | PC.NURSE ---
PATIENT AND FAMILY UPDATED ON TRANSFER. CURRENTLY WAITING ON BED ASSIGNMENT. NO NEEDS VOICED BY PATIENT OR FAMILY
--- NOTE | 2024-10-01 07:12 | PC.NURSE ---
REPORT GIVEN TO GO LEZAMA
[2024-10-01 07:56] VITALS: BP 131/67; PULSE 57; RESP 18; TEMP 36.2; O2SAT 97
[2024-10-01 08:25] VITALS: BP 128/78; PULSE 72; RESP 16; TEMP 36.6; O2SAT 100
--- OUTSIDE RECORDS SUMMARY | 2024-10-08 03:32 | XMS_ITS | Clinical Summary ---
Author Organization [facility] Address [facility] [place] [address] [place] [address] Care Team Providers Care Justice Court Judge Name Role Phone Denis Blunt MD Unavailable [phone] Kyle Hendricks MD Primary Care Provider [phone] Allergies Active Allergy Reactions Criticality Noted Date Comments Penicillins Hives 09/16/2024 Medications amiodarone (PACERONE) 200 MG tablet Take 1 tablet (200 mg total) by mouth daily. 4 04/20/20 25 Active pantoprazole EC (PROTONIX) 40 MG tablet Take 1 tablet (40 mg total) by mouth daily. Active rosuvastatin (CRESTOR) 40 MG tablet Take 1 tablet (40 mg total) by mouth daily. 4 03/23/20 25 Active spironolactone (ALDACTONE) 25 MG tablet Take 0.5 tablets (12.5 mg total) by mouth daily. 4 Active furosemide (LASIX) 40 MG tablet Take 0.5 tablets (20 mg total) by mouth daily. 4 Active sacubitril-vals lydia (ENTRESTO) 49-51 MG tablet Take 1 tablet by mouth 2 (two) times daily. 4 Active metoprolol succinate ER (TOPROL-XL) 25 MG 24 hr tablet Take 1 tablet (25 mg total) by mouth daily. Active aspirin 81 MG chewable tablet Chew 1 tablet (81 mg total) by mouth daily. 4 03/23/20 Active coenzyme Q-10 (CO Q-10) 100 MG capsule Take 1 capsule (100 mg total) by mouth daily. Active senna-docusate (SENOKOT-S) 8.6-50 MG tablet Take 2 tablets by mouth 2 (two) times daily. Active solifenacin (VESICARE) 5 MG tablet Take 2 tablets (10 mg total) by mouth daily. 09/16/20 Discontinu ed(Error) solifenacin (VESICARE) 5 MG tablet Take 1 tablet (5 mg total) by mouth daily. 09/25/20 Discontinu ed(Stop Taking at Discharge) finasteride (PROSCAR) 5 MG tablet Take 1 tablet (5 mg total) by mouth daily. 09/25/20 Discontinu ed(Stop Taking at Discharge) rivaroxaban (XARELTO) 20 MG Tab tablet Take 1 tablet (20 mg total) by mouth daily. 09/25/20 Discontinu ed(Stop Taking at Discharge) Active Problems Problem Noted Date Diagnosed Date Hematuria 10/01/2024 Gross hematuria 10/01/2024 Hypertrophy of prostate with urinary obstruction 09/23/2024 Encounters Date Type Department Care Team Description 10/06/2024 Hospital Follow-up Call [facility] [place] [address] Neida Ryan LPN Follow Up Call (BERRY 10/01-10/02/24) 10/01/2024 9:19 AM MAINTENANCE OPERATOR - 10/02/2024 2:54 PM MAINTENANCE OPERATOR Hospital Encounter [facility] Med/Surg [address] [place] [address] Deepika Catalan MD Suresh, MD Kathia Dozier, Alphonso Gordillo MD Discharge Disposition: Home or Self Care (Routine Discharge) 10/01/2024 Travel 09/23/2024 12:41 PM MAINTENANCE OPERATOR Anesthesia Event [facility] [place] [address] Mihir Clinton MD Jarvis, Brittany L, EVELINA 09/23/2024 12:30 PM MAINTENANCE OPERATOR - 09/23/2024 2:33 PM MAINTENANCE OPERATOR [facility] [place] [address] Prerna Caruso MD HOLEP 111GRAMS HOLMIUM LASER ENUCLEATION OF PROSTATE 09/23/2024 9:41 AM MAINTENANCE OPERATOR - 09/25/2024 4:13 PM MAINTENANCE OPERATOR Hospital Encounter [facility]urg [address]rd [place] [address] Prerna Caruso MD Discharge Disposition: Home or Self Care (Routine Discharge) 09/23/2024 Travel 09/16/2024 Travel from Last 3 Months Social History Tobacco Use Types Packs/Day Years Used Date Smoking Tobacco: Former Cigarettes Smokeless Tobacco: Never Tobacco Cessation:Counseling Given: Not Answered Comments:Quit smoking 1976 Alcohol Use Standard Drinks/Week Comments Not Currently 0 (1 standard drink = 0.6 oz pur e alcohol) rare beer [facility] [employer] Answer Date Recorded In the past 12 months has [facility] [employer], gas, oil, or water [employer] threatened to shut off services in your home? No 10/01/2024 Humiliation, Afraid, Rape, and Kick questionnair e Answer Date Recorded Within the last year, have y ou been afraid of your partner or ex-partner? No 10/01/2024 Within the last year, have y ou been humiliated or emotionally abused in other ways by your partner or ex-partner? No Within the last year, have y ou been kicked, hit, slapped, or otherwise physically hurt by your partner or ex-partner? No 10/01/2024 Within the last year, have y ou been raped or forced to have any kind of sexual activity by your partner or ex-partner? No 10/01/2024 Overall Financial Resource Strain (CARDIA) Answe r Date Recorded How hard is it for you to pa y for the very basics like food, housing, medical care, and heating? Not hard at all 10/01/2024 Hunger Vital Sign Answer Date Recorded Within the past 12 months, y ou worried that your food would run out before you got the money to buy more. Never true 10/01/20 24 Within the past 12 months, t he food you bought just didn't last and you didn't have money to get more. Never true 10/01/2024 PRAPARE - Transportation Answer Date Re corded In the past 12 months, has l ack of transportation kept you from medical appointments or from getting medications? No 09/08 In the past 12 months, has l ack of transportation kept you from meetings, work, or from getting things needed for daily living? No 10/01/2024 Housing Stability Vital Sign Answer Oscar e Recorded In the last 12 months, was t here a time when you were not able to pay the mortgage or rent on time? No 10/01/2024 In the past 12 months, how m any times have you moved where you were living? 0 10/01/2024 At any time in the past 12 m [facility], were you homeless or living in a care home (including now)? No 10/01/2024 Sex and Gender Information Value Date Recorded Sex Assigned at Not on file Legal Sex Male 7:25 PM CDT Gender Identity Not on file Sexual Orientation Not on file Last Filed Vital Signs Vital Sign Reading Time Taken Comments Blood Pressure 152/77 10/02/2024 11:31 AM MAINTENANCE OPERATOR Pulse 58 10/02/2024 11:31 AM MAINTENANCE OPERATOR Temperature 36.7 ??C (98 ??F) 10/02/2024 7:39 AM MAINTENANCE OPERATOR Respiratory Rate 19 10/02/2024 11:31 AM MAINTENANCE OPERATOR Oxygen Saturation 99% 10/02/2024 11:31 AM MAINTENANCE OPERATOR Inhaled Oxygen Concentration - - Weight 90.9 kg (200 lb 6.4 oz) 10/02/2024 6:46 A M MAINTENANCE OPERATOR Height 190.5 cm (6' 3 ) 10/01/2024 9:34 AM MAINTENANCE OPERATOR Body Mass Index 25.05 10/01/2024 9:34 AM MAINTENANCE OPERATOR Plan of Treatment Health Maintenance Due Date Last Done Comments Hepatitis C 1965 Zoster Vaccines (1 of 2) 1997 Annual Medicare Wellness Visit 01/18/2012 COVID-19 Vaccine ( season) 2024 10/04/2023, 09/20/2022, 11/07/2021, Additional history exists DTaP, Tdap and Td Vaccines (3 - Td or Tdap) 09/09/2034 09/09/2024, 05/02/2012 Pneumococcal Vaccine: 65+ Years Completed 07/03/2019, 06/13/2018, 05/02/2012 Influenza Adult Completed 08/29/2024, 100 03/2021, 07/15/2020, Additional history exists RSV Immunization or 60+ Years Completed 08/29/2024 Meningococcal Vaccine Aged Out No jacob spike eligible based on patient's age to complete this topic RSV Immunizations Under 20 Months Aged Out No longer eligible based on patient's age to complete this topic Procedures Procedure Name Priority Date/Time Associated Diagnosis Comments MAGNESIUM Routine 10/02/2024 4:38 AM MAINTENANCE OPERATOR BASIC METABOLIC PANEL Routine 10/02/2024 4:38 AM MAINTENANCE OPERATOR CBC W/DIFF AUTOMATED Routine 10/02/2024 4:38 AM MAINTENANCE OPERATOR TRANSFUSE RED BLOOD CELLS Routine 10/01/2024 4:33 PM MAINTENANCE OPERATOR TYPE & SCREEN Routine 10/01/2024 3:07 PM MAINTENANCE OPERATOR XR CHEST PORTABLE Today 10/01/2024 1:1 7 PM MAINTENANCE OPERATOR PROCALCITONIN (PCT) Routine 10/01/2024 9 :57 AM MAINTENANCE OPERATOR BASIC METABOLIC PANEL STAT 10/01/2024 9:57 AM MAINTENANCE OPERATOR CBC W/DIFF AUTOMATED STAT 10/01/2024 9:57 AM MAINTENANCE OPERATOR HC URINALYSIS AUTO W/O MICRO Routine 10/01/2024 9:50 AM MAINTENANCE OPERATOR BASIC METABOLIC PANEL Routine 09/25/2024 6:45 AM MAINTENANCE OPERATOR HEMOGLOBIN AND HEMATOCRIT Routine 09/25/2024 6:45 AM MAINTENANCE OPERATOR HEMOGLOBIN AND HEMATOCRIT STAT 09/24/2024 2:05 PM MAINTENANCE OPERATOR HEMOGLOBIN AND HEMATOCRIT Routine 09/24/2024 7:27 AM MAINTENANCE OPERATOR BASIC METABOLIC PANEL Routine 09/24/2024 7:27 AM MAINTENANCE OPERATOR LASER PROSTATECTOMY 09/23/2024 1 2:41 PM MAINTENANCE OPERATOR BENIGN PROSTATIC HYPERTROPHY WITH LOWER URINARY TRACT SYMPTOMS, URINARY RETENTION N40.1, R33.9, Z95.1, Z79.0 Case Notes SCHED BY FAX 08/08/2024 LCS PHONE ASSESS Special Needs SHORT STAY JOSÉ LASER PATHOLOGY Routine 09/23/2024 12:00 AM MAINTENANCE OPERATOR from Last 3 Months Results * (ABNORMAL) BASIC METABOLIC PANEL (10/02/2024 4:38 AM MAINTENANCE OPERATOR) Only the most recent of4 resultswithin the time period is included. GLUCOSE 106(H) 70 - 99 MG/DL 10/02/2024 5:11 AM MAINTENANCE OPERATOR [facility] BUN 28(H) 7 - 18 MG/DL 10/02/2024 5:11 AM MAINTENANCE OPERATOR [facility] CREATININE S/P/B 1.57(H) 0.7 - 1.3 MG/DL 10/02/2024 5:11 AM MAINTENANCE OPERATOR [facility] SODIUM S/P/B 140 136 - 145 MMOL/L 10/02/2024 5:11 AM MAINTENANCE OPERATOR [facility] POTASSIUM S/P/B 3.6 3.5 - 5.1 MMOL/L 10/02/2024 5:11 AM MAINTENANCE OPERATOR [facility] CHLORIDE S/P/B 111 97 - 115 MMOL/L 10/02/2024 5:11 AM MAINTENANCE OPERATOR [facility] CO2 26.0 21 - 32 MMOL/L 10/02/2024 5:11 AM [facility] CALCIUM S/P/B 8.9 8.5 - 10.1 MG/DL 10/02/2024 5:11 AM [facility] ANION GAP 3.0 2 - 10 MMOL/L 10/02/2024 5:11 AM [facility] BUN CREATININE RATIO 17.8 6 - 26 10/02/2024 5:11 AM [facility] GFR ESTIMATE 45(L) >90 ML/MIN/1.7 3 M2 10/02/2024 5:11 AM [facility] Comment: NOTE: eGFR is not calculated for patients <18 years of age or gender unknown. This is an estimated GFR calculation using the new CKD EPI creatinine equation without race and so does not require a correction factor for race. This estimated GFR should not be used for calculating drug doses. 10/02/2024 4:38 AM MAINTENANCE OPERATOR Kristen Michael NP LABORATORY Final Result [facility] [address] [place] [address], [place] [phone] * (ABNORMAL) CBC W/DIFF AUTOMATED (10/02/2024 4:38 AM MAINTENANCE OPERATOR) Only the most recent of2 resultswithin the time period is included. WBC 27.43(H) 4.5 - 11.0 x10'3/uL 10/02/2024 5:31 AM MAINTENANCE OPERATOR [facility] RBC 3.08(L) 4.70 - 6.10 x10'6/uL 10/02/2024 5:31 AM [facility] HGB 8.1(L) 14.0 - 18.0 G/DL 10/02/2024 5:31 AM [facility] HCT 26.5(L) 43.0 - 54.0 % 10/02/2024 5:31 AM [facility] MCV 86.0 80.0 - 94.0 FL 10/02/2024 5:31 AM [facility] MCH 26.3(L) 27.0 - 31.0 PG 10/02/2024 5:31 AM [facility] MCHC 30.6(L) 32.0 - 36.0 G/DL 10/02/2024 5:31 AM [facility] RDW 16.0(H) 11.5 - 14.5 % 10/02/2024 5:31 AM [facility] PLT 62(L) 130 - 400 x10'3/uL 10/02/2024 5:31 AM [facility] MPV 11.4 9.3 - 12.2 FL 10/02/2024 5:31 AM [facility] DIFFERENTIAL TYPE MANUAL DIFFERENTIAL 10/02/2024 5:32 AM [facility] SEG NEUTROPHILS 4 % 5:32 AM [facility] LYMPHOCYTES 94 % 10/02/2024 5:32 AM [facility] MONOCYTES 2 % 10/02/2024 5:32 AM [facility] ABS. NEUTROPHILS 1.10(L) 1.80 - 7.70 x10'3/uL 10/02/2024 5:32 AM [facility] ABS. LYMPHOCYTES 25.78(H) 1.00 - 4.80 x10'3/uL 10/02/2024 5:32 AM [facility] ABS. MONOCYTES 0.55 0.30 - 0.82 x10'3/uL 10/02/2024 5:32 AM MAINTENANCE OPERATOR [facility] RBC MORPHOLOGY SLIDE REVIEWED 2023 5:32 AM MAINTENANCE OPERATOR [facility] POIKLO 1+ 10/02/2024 5:32 AM MAINTENANCE OPERATOR [facility] OVALOCYTES 1+ 10/02/2024 5:32 AM MAINTENANCE OPERATOR [facility] PLT EST. DECREASED 10/02/2024 5:32 AM MAINTENANCE OPERATOR [facility] 10/02/2024 4:38 AM MAINTENANCE OPERATOR us Kristen Michael MILLING/POLISHING OPERATOR LABORATORY Final Result Performing Organization Address City/[facility]/ZIP Co de Phone Number [facility] [address] [place] [address], [place] [phone] * MAGNESIUM (10/02/2024 4:38 AM MAINTENANCE OPERATOR) MAGNESIUM 2.2 1.8 - 2.4 MG/DL 10/02/2024 5:11 AM MAINTENANCE OPERATOR [facility] 10/02/2024 4:38 AM MAINTENANCE OPERATOR us Kristen Michael MILLING/POLISHING OPERATOR LABORATORY Final Result Performing Organization Address City/[facility]/ZIP Co de Phone Number [facility] [address] [place] [address], [place] [phone] * TRANSFUSE RED BLOOD CELLS (10/01/2024 7:52 PM MAINTENANCE OPERATOR) us Kristen Michael MILLING/POLISHING OPERATOR NURSING TREATMENT ORDERABLES - BLOOD ADMIN Final Result * TYPE & SCREEN (10/01/2024 3:07 PM MAINTENANCE OPERATOR) UNITS ORDERED 1 10/01/2024 3:16 PM MAINTENANCE OPERATOR [facility] ABO/RH B POSITIVE 10/01/2024 3:58 PM MAINTENANCE OPERATOR [facility] ANTIBODY SCREEN NEGATIVE 3:58 PM MAINTENANCE OPERATOR [facility] SAMPLE EXPIRATION 10/04/2024,2359 10/01/2024 3:58 PM MAINTENANCE OPERATOR [facility] BLOOD UNIT NUMBER [id number] 10/01/2024 4:17 PM MAINTENANCE OPERATOR [facility] PRODUCT: PC LEUKOPOOR 10/01/2024 4:17 PM MAINTENANCE OPERATOR [facility] UNIT DIVISION 00 10/01/2024 4:17 PM MAINTENANCE OPERATOR [facility] BLOOD UNIT STATUS TRANSFUSED,FINAL 10/02/2024 8:32 AM [facility] ISSUE DATE/TIME [id number] 8:32 AM [facility] PRODUCT CODE [id number] 10/02/2024 8:32 AM MAINTENANCE OPERATOR [facility] ABO/RH Unit B POS 10/02/2024 8:32 AM [facility] ABO/RH UNIT ISBT CODE 7300 10/02/2024 8:32 AM [facility] BLOOD UNIT EXPIRATION DATE [id number] 10/02/2024 8:32 AM [facility] TRANSFUSION STATUS OK TO TRANSFUSE 10/01/2024 4:17 PM MAINTENANCE OPERATOR [facility] CROSSMATCH COMPATIBLE-EXM 10/01/2024 4:17 PM MAINTENANCE OPERATOR [facility] 10/01/2024 3:07 PM MAINTENANCE OPERATOR us Kristen Michael NP BLOOD BANK TEST ORDERABLES Fi nal Result [facility] [address] [place] [address], * XR CHEST PORTABLE (10/01/2024 1:17 PM MAINTENANCE OPERATOR) Anatomical Region Laterality Modality Chest Radiographic Delia ging 10/01/2024 1:21 PM MAINTENANCE OPERATOR Impressions 10/01/2024 1:28 PM MAINTENANCE OPERATOR IMPRESSION: 1. ??No acute cardiopulmonary process identified. 2. ??Mild cardiomegaly with postoperative changes. Referred By: PATEL LOPEZ Interpreted By: José Miguel Lilly MD, 10/01/2024 1:21 PM Narrative 10/01/2024 1:28 PM MAINTENANCE OPERATOR [place] [id number] Examination: Portable chest. Exam time: 1309 hours. Clinical history: Leukocytosis. Comparison: None Technique: ??AP ??upright view. Findings: Even allowing for projection, the heart is mildly enlarged. ??Pulmonary vascularity is within normal limits. ??Changes from median sternotomy, bypass grafting and left atrial appendage clipping noted. ??The lungs and pleural spaces appear free of any active process. ??Bilateral shoulder arthroplasty is noted. Procedure Note José Miguel Lilly MD - 10/01/2024 [place] [address] Examination: Portable chest. Exam time: 1309 hours. Clinical history: Leukocytosis. Comparison: None Technique: AP upright view. Findings: Even allowing for projection, the heart is mildly enlarged.Pulmonary vascularity is within normal limits. Changes from mediansternotomy, bypass grafting and left atrial appendage clipping noted. Thelungs and pleural spaces appear free of any active process. Bilateralshoulder arthroplasty is noted. IMPRESSION: 1. No acute cardiopulmonary process identified. 2. Mild cardiomegaly with postoperative changes. Referred By: PATEL LOPEZ Interpreted By: José Miguel Lilly MD, 10/01/2024 1:21 PM Kristen Michael MILLING/POLISHING OPERATOR GENERAL IMAGING Final Result * PROCALCITONIN (PCT) (10/01/2024 9:57 AM MAINTENANCE OPERATOR) Procalcitonin 0.08 0.00 - 0.49 NG/ML 10/01/2024 3:11 PM MAINTENANCE OPERATOR [facility] 10/01/2024 9:57 AM MAINTENANCE OPERATOR Kristen Michael NP LABORATORY Final Result [facility] [address] [place] [address], [place] [phone] * (ABNORMAL) URINALYSIS (10/01/2024 9:50 AM MAINTENANCE OPERATOR) SPECIMEN TYPE URINE CLEAN CATCH 10/01/2024 10:02 AM MAINTENANCE OPERATOR [facility] COLOR (U) COLORLESS 10/01/2024 10:16 AM [facility] TRANSPARENCY TURBID 10/01/2024 10:16 AM [facility] SPECIFIC GRAVITY (U) 1.005 1.001 - 1.030 10/01/2024 10:16 AM [facility] U PH 5.0 5.0 - 9.0 10/01/2024 10:16 AM [facility] LEUKOCYTES (U) NEGATIVE NEGATIVE 10/01/2024 10:16 AM [facility] NITRITES NEGATIVE NEGATIVE 10/01/2024 10:16 AM [facility] PROTEIN RANDOM (U) NEGATIVE <30 MG/DL 10/01/2024 10:16 AM [facility] GLUCOSE (U) NORMAL NORMAL MG/DL 10/01/2024 10:16 AM MAINTENANCE OPERATOR [facility] KETONES MG/DL (U) NEGATIVE NEGATIVE MG/DL 10/01/2024 10:16 AM [facility] UROBILINOGEN NORMAL NORMAL MG/DL 10/01/2024 10:16 AM MAINTENANCE OPERATOR [facility] BILIRUBIN (U) NEGATIVE NEGATIVE MG/DL 10/01/2024 10:16 AM [facility] BLOOD (U) 3+(A) NEGATIVE 10/01/2024 10:16 AM [facility] WBC/HPF 8(H) <6 /HPF 10/01/2024 10:16 AM MAINTENANCE OPERATOR [facility] RBC/HPF >100(H) <6 /HPF 10/01/2024 10:16 AM MAINTENANCE OPERATOR [facility] URINE SPECIMEN OBTAINED BY CLEAN CATCH PROCEDURE / Unknown 10/01/2024 9:50 AM MAINTENANCE OPERATOR Kristen Michael NP URINE ORDERABLES Final Result [facility] [address] [place] [address], [place] [phone] * (ABNORMAL) HEMOGLOBIN AND HEMATOCRIT (09/25/2024 6:45 AM MAINTENANCE OPERATOR) Only the most recent of3 resultswithin the time period is included. HGB 8.5(L) 14.0 - 18.0 G/DL 09/25/2024 7:06 AM MAINTENANCE OPERATOR [facility] HCT 28.8(L) 43.0 - 54.0 % 09/25/2024 7:06 AM MAINTENANCE OPERATOR [facility] 09/25/2024 6:45 AM MAINTENANCE OPERATOR us Nahum Olmstead MD LABORATORY Final Res ult Performing Organization Address [facility]/State/ZIP Co de Phone Number [facility] [address] [address], * Pathology (09/23/2024 12:00 AM MAINTENANCE OPERATOR) PATHOLOGY [facility] ? Department of Laboratory Medicine ?[address] ?[place] [address] ? , [facility] [id number] ? Pathology Report ? Surgical Pathology Report Name: AYLA HARTLEY ? Specimen #: [id number] Age: 4 1945 (Age: 79) ?Location: [id number] Sex: M ?Procedure Date: 09/23/2024 [facility] #: [id number] ?Date Received: 09/24/2024 Date Reported: 09/30/2024 Provider: PRERNA CARUSO MD Source: Prostate chips Clinical History: Benign prostatic hypertrophy with lower urinary tract symptoms and urinary retention. ?? FINAL DIAGNOSIS: Prostate, laser nucleation: ? -Prostatic acinar adenocarcinoma, conventional type, grade group 1 (Dixfield score 3+3=6), involving ?approximately 5% of the specimen. ? -Chronic lymphocytic leukemia/small lymphocytic lymphoma. ? -Adenofibromatous hyperplasia. ? Diagnosis Comment: Immunohistochemical stain cocktail for AMACR/p63/HMWK performed on 6 tissue blocks highlight multiple foci of prostatic adenocarcinoma involving approximately 5% of the specimen. ?? The prostate chips contain dense areas of chronic inflammation with immunohistochemical stains showing the small lymphocytes being positive for CD20, CD5, CD23, Lef1, and kappa immunoglobulin light chain with negative staining for BCL1, CD3, and lambda immunoglobulin light chain. The findings support the diagnosis of prostatic involvement by chronic lymphocytic leukemia/small lymphocytic lymphoma. The findings were communicated to Dr. Caruso via [employer] [facility] on 09/30/24. Gross Description: Received in formalin, labeled with a patient label and as prostate tissue are multiple pieces of firm, white-valentin tissue, 65 g and 11.5 x 10 x 2.5 cm in aggregate. ??[employer] tissue is submitted in cassettes 1 through 18. Gross examination (when applicable), interpretation, and sign out were performed at [facility], [address] [place] [address]. All immunohistochemical and histochemical tests were developed by and performed at [facility], [address] [place] [address]. All tests reported here have not been cleared or approved by the U.S. Food and Drug Administration (FDA). This laboratory is regulated under CLIA as qualified to perform high-complexity testing. These tests are used for clinical purposes. They should not be regarded as investigational or for research. Positive and negative controls show appropriate reactivity. ?? Electronically Signed Out ? BREANA NORTON MD [facility] TISSUE PROSTATIC STRUCTURE / Unknown 09/23/2024 1:56 PM MAINTENANCE OPERATOR Prerna Caruso MD PATHOLOGY/CYTOLOGY ORDERA MARIO Final Result [facility] [address] [place] [address], [id number] from Last 3 Months Insurance [employer] MEDICARE [employer] Advance Directives * Full Code (Latest Code Status on File) Date Activated Date Inactivated Comments 10/01/2024 9:43 AM 10/02/2024 5:00 PM * Full Code Date Activated Date Inactivated Comments 09/23/2024 4:25 PM 09/25/2024 7:07 PM [address] Judge Relationship Specialty Start Date End Date Kyle Hendricks MD [address] [place] [address] PCP - General INTERNAL MEDICINE 09/23/24 Denis Blunt MD [address] [address] CARDIOVASCULAR DISEASE 09/16/24
--- OUTSIDE RECORDS SUMMARY | 2024-10-08 03:33 | XMS_ITS | Encounter Summary ---
Author Organization [facility] Address [facility] [place] [address] [place] [address] Care Team Providers Care Tableau Administrator Name Role Phone Denis Blunt MD Unavailable [phone] Jeanne Vargas MD Primary Care Provider [phone] Reason for Visit * Auth/Cert (Routine) Specialty Diagnoses / Procedures Referred By Contnikkie t Referred To Contact Diagnoses BENIGN PROSTATIC HYPERTROPHY WITH LOWER URINARY TRACT SYMPTOMS, URINARY RETENTION N40.1, R33.9, Z95.1, Z79.0 Procedures LASER ENUCLEATION PROSTATE W MORCELLATION HOLEP 111GRAMS HOLMIUM LASER ENUCLEATION OF PROSTATE Prerna Caruso MD [address] [place] [address] Phone: tel: fax: Referral ID Status Reason Start Date Expiration Date Visits Re quested Visits Authorized [id number] 1 1 Encounter Details Date Type Department Care Team (Latest Contact Info) Description 09/23/2024 9:41 AM CLIENT RESOLUTION SPECIALIST - 09/25/2024 4:13 PM [facility] Hospital Encounter [facility] Med/Surg [address] [place], [place] [id number] Prerna Caruso MD 3 [facility] [place] [address] Discharge Disposition: Home or Self Care (Routine Discharge) Social History Tobacco Use Types Packs/Day Years Used Date Smoking Tobacco: Former Cigarettes Smokeless Tobacco: Never Tobacco Cessation:Counseling Given: Not Answered Comments:Quit smoking 1976 Alcohol Use Standard Drinks/Week Comments Not Currently 0 (1 standard drink = 0.6 oz pur e alcohol) rare beer [facility] Utilities Answer Date Recorded In the past 12 months has e [employer], [employer], oil, or water [employer] threatened to shut off services in your home? No 09/23/2024 Humiliation, Afraid, Rape, and Kick questionnair e Answer Date Recorded Within the last year, have y ou been afraid of your partner or ex-partner? No 09/23/2024 Within the last year, have y ou been humiliated or emotionally abused in other ways by your partner or ex-partner? No Within the last year, have y ou been kicked, hit, slapped, or otherwise physically hurt by your partner or ex-partner? No 09/23/2024 Within the last year, have y ou been raped or forced to have any kind of sexual activity by your partner or ex-partner? No 09/23/2024 Overall Financial Resource Strain (CARDIA) Answe r Date Recorded How hard is it for you to pa y for the very basics like food, housing, medical care, and heating? Not hard at all 09/23/2024 Hunger Vital Sign Answer Date Recorded Within the past 12 months, y ou worried that your food would run out before you got the money to buy more. Never true 09/23/20 24 Within the past 12 months, t he food you bought just didn't last and you didn't have money to get more. Never true 09/23/2024 PRAPARE - Transportation Answer Date Re corded In the past 12 months, has l ack of transportation kept you from medical appointments or from getting medications? No 09/07 In the past 12 months, has l ack of transportation kept you from meetings, work, or from getting things needed for daily living? No 09/23/2024 Housing Stability Vital Sign Answer Oscar e Recorded In the last 12 months, was t here a time when you were not able to pay the mortgage or rent on time? No 09/23/2024 In the past 12 months, how m any times have you moved where you were living? 0 09/23/2024 At any time in the past 12 m [facility], were you homeless or living in a chcf (including now)? No 09/23/2024 Sex and Gender Information Value Date Recorded Sex Assigned at Not on file Legal Sex Male 7:25 PM CDT Gender Identity Not on file Sexual Orientation Not on file documented as of this encounter Last Filed Vital Signs Vital Sign Reading Time Taken Comments Blood Pressure 126/76 09/25/2024 11:40 AM CLIENT RESOLUTION SPECIALIST Pulse 54 09/25/2024 11:40 AM CLIENT RESOLUTION SPECIALIST Temperature 36.5 ??C (97.7 ??F) 09/25/2024 4:32 AM CS T Respiratory Rate 19 09/25/2024 11:40 AM CLIENT RESOLUTION SPECIALIST Oxygen Saturation 95% 09/25/2024 11:40 AM CLIENT RESOLUTION SPECIALIST Inhaled Oxygen Concentration - - Weight 87.7 kg (193 lb 5.5 oz) 09/23/2024 10:45 AM CLIENT RESOLUTION SPECIALIST Height 190.5 cm (6' 3 ) 09/23/2024 10:45 AM CLIENT RESOLUTION SPECIALIST Body Mass Index 24.17 09/23/2024 10:45 AM CLIENT RESOLUTION SPECIALIST documented in this encounter Functional Status * Question Answer Date of Assessment Author Status Do you have serious difficul ty walking or climbing stairs? No 09/25/2024 3:31 PM CLIENT RESOLUTION SPECIALIST Boy Solitario RN Active Do you have difficulty dressing or bathing? No 09/25/2024 3:31 PM Boy Granda RN Ac tive Because of a physical, menta l, or emotional condition, do you have difficulty doing errands alone such as visiting a doctor's office or shopping? No 09/25/2024 3:31 PM Boy Granda RN Active * Are you deaf or do you have serious difficulty hearing Answer Date of Assessment Author Status No 09/25/2024 3:31 PM Boy Granda RN Active * Are you blind or do you have serious difficulty seeing, even when wearing glasses? Answer Date of Assessment Author Status No 09/25/2024 3:31 PM Boy Granda RN Active * Do you have serious difficulty walking or climbing stairs? Answer Date of Assessment Author Status No 09/25/2024 3:31 PM Boy Granda RN Active * Do you have difficulty dressing or bathing? Answer Date of Assessment Author Status No 09/25/2024 3:31 PM Boy Granda RN Active * Because of a physical, mental, or emotional condition, do you have difficulty doing errands alone such as visiting a doctor's office or shopping? Answer Date of Assessment Author Status No 09/25/2024 3:31 PM Boy Granda RN Active documented as of this encounter Mental Status * Question Answer Entry Date Author Status Because of a physical, menta l, or emotional condition, do you have serious difficulty concentrating, remembering, or making decisions? No 09/25/2024 3:31 PM Boy Granda RN Activ e * Because of a physical, mental, or emotional condition, do you have serious difficulty concentrating, remembering, or making decisions? Answer Entry Date Author Status No 09/25/2024 3:31 PM Boy Granda RN Active documented in this encounter Discharge Summaries * Ann Yap NP - 09/25/2024 3:44 PM CST Images from the original note were not included. Subjective: NAEO; Patient reports feeling good this afternoon. No nausea. Esteban removed around 1400 for void trial. Denies pain. Urine has cleared. Renal function stable at baseline, Cr 1.6. Hgb 8.5 with hx chronic anemia (BL around 9.5). Afebrile. Allergies Allergen Reactions Penicillins Hives Objective: Filed Vitals: 09/25/24 0432 09/25/24 0743 09/25/24 0858 09/25/24 1140 BP: (!) 154/76 (!) 145/80 126/76 Pulse: (!) 54 (!) 54 (!) 54 (!) 54 Resp: Temp: 97.7 ??F (36.5 ??C) TempSrc: Oral Oral Oral SpO2: 98% 96% 95% Weight: Height: PainSc: I/O last 3 completed shifts: In: 30821 [P.O.:940; Other:21630] Out: 54239 [Urine:18419] PHYSICAL EXAM General: Alert, cooperative, no distress, appears stated age Resp: EWOB, symmetric chest rise Abdomen: Soft, non-tender, non-distended Psych: Affect and behavior normal Labs: Recent Labs Lab 09/24/24 0727 09/24/24 1405 09/25/24 0645 HGB 8.4* 8.0* 8.5* HCT 28.0* 27.2* 28.8* Recent Labs Lab 09/24/24 0727 09/25/24 0645 NA 141 139 K 3.9 3.7 CL 111 109 CO2 25.6 27.9 AGAP 4.4 2.1 BUN 30* 27* CR 1.81* 1.62* BUNCREATININ 16.6 16.7 GLU 131* 113* CA 8.6 9.0 No results for input(s): APTT , INR , PTT in the last 168 hours. Imaging: No results found. Assessment/Plan: Meal Mantra CT(R) 1. BPH with obstruction/lower urinary tract symptoms BENIGN PROSTATIC HYPERPLASIA WITH OUTFLOW OBSTRUCTION 2. Retention of urine, unspecified RETENTION OF URINE 3. Postsurgical aortocoronary bypass status HISTORY OF CORONARY ARTERY BYPASS GRAFTING 4. MCC (current) use of anticoagulants LONG-TERM CURRENT USE OF ANTICOAGULANT Chronic, worsening obstructive BPH s/p Holmium laser enucleation of the prostate with Dr. Caruso09/23/24. Esteban has been removed. Encourage oral fluid intake and ambulation. Check PVR bladder scan. Clearedfor discharge after he voids. Follow-up with Dr. Caruso in clinic 3 months as scheduled. Ann Yap APRN Cosigned by Prerna Caruso MD at 09/26/2024 2:57 PM CLIENT RESOLUTION SPECIALIST NT RESOLUTION SPECIALIST NT RESOLUTION SPECIALIST documented in this encounter Discharge Instructions * Attachments The following attachments cannot be sent through Care Everywhere. * Benign Prostatic Hyperplasia (Enlarged Prostate) Discharge Instructions (Algerian) documented in this encounter Medications at Time of Discharge amiodarone (PACERONE) 200 MG tablet Take 1 tablet (200 mg total) by mouth daily. 04/25/2024 04/20/2025 aspirin 81 MG chewable tablet Chew 1 tablet (81 mg total) by mouth daily. 03/23/2024 03/23/2025 coenzyme Q-10 (CO Q-10) 100 MG capsule Take 1 capsule (100 mg total) by mouth daily. furosemide (LASIX) 40 MG tablet Take 0.5 tablets (20 mg total) by mouth daily. 07/21/2024 metoprolol succinate ER (TOPROL-XL) 25 MG 24 hr tablet Take 1 tablet (25 mg total) by mouth daily. pantoprazole EC (PROTONIX) 40 MG tablet Take 1 tablet (40 mg total) by mouth daily. rosuvastatin (CRESTOR) 40 MG tablet Take 1 tablet (40 mg total) by mouth daily. 03/23/2024 03/23/2025 sacubitril-valsar valentin (ENTRESTO) 49-51 MG tablet Take 1 tablet by mouth 2 (two) times daily. 06/13/2024 senna-docusate (SENOKOT-S) 8.6-50 MG tablet Take 2 tablets by mouth 2 (two) times daily. 03/22/2024 spironolactone (ALDACTONE) 25 MG tablet Take 0.5 tablets (12.5 mg total) by mouth daily. 07/07/2024 documented as of this encounter Progress Notes * Prerna Caruso MD - 09/25/2024 4:13 PM CST Request for Documentation Clarification Ayla Hodge ; VISIT [id number] Query Response Sent: 09/29/24 07:21 CLIENT RESOLUTION SPECIALIST From: Prerna Caruso MD Query question: Based on medical judgment and consideration of these clinical indicators, the following condition was evaluated, monitored and/or treated during this episode of care Provider response: Chronic heart failure with reduced EF NT RESOLUTION SPECIALIST Original Query Sent: 09/25/24 14:55 CLIENT RESOLUTION SPECIALIST From: Joanne Echavarria To: Prerna Caruso MD By submitting this query, we are seeking further clarification of documentation to accurately reflect all conditions that you monitored, evaluated, treated, or that may have extended the hospitalization or utilization of additional resources for care. Chart review has indicated your clinical opinion is needed regarding the following diagnosis. Your response serves as your authenticated entry to the Legal Medical Record. The fact that a question isasked does not imply that any particular diagnosis is desired or expected. Based on medical judgment and consideration of these clinical indicators, the following condition was evaluated, monitored and/or treated during this episode of care * Chronic heart failure with reduced EF * Congestive heart failure, unspecified * Other Clinical Information 79yr old admitted with chronic urinary retention for scheduled surgery. (per H&P). - H&P: PMH: CHF. Outpt Meds: Lasix 20mg daily, Metoprolol 2mg daily - (-) Anes preprocedure note: Cardiovascular:+CHF. ROS comment: Echo 2023 Ejection fraction is measured at 35 %. Global Longitudinal Strain is -11 %. The left ventricle is normal in size with concentric left ventricular remodeling pattern. There is global moderate reduction in left ventricular systolic function. The LVEF is estimated to be 35-40%. The right ventricle is normal in size and systolic function. - Historical data: [facility] Office visit (06/25/24) Interval history: HFrEF. - Received: PO Lasix 20mg daily, PO Metoprolol 25mg daily, continued monitoring weights and I&O's. NT RESOLUTION SPECIALIST NT RESOLUTION SPECIALIST * Ryann Olmstead RN - 09/24/2024 11:25 AM CST 09/24/24 1124 Interdisciplinary Group Conference Team Members Present Case/Care management (per EMR review) Patient Current Status Paient current status Observation/SSOP Barriers to Discharge Observation Review Barriers to Discharge Observation Not Medically Ready Medical Needs Reasons Pt Not Medically Ready: Pending Void Trials (monitor HGB; CBI to clear urine, voiding trial poss this afternoon) Patient expects to be discharged to Patient expects to be discharged to: Home or Self care no new needs NT RESOLUTION SPECIALIST * Nahum Olmstead MD - 09/24/2024 11:14 AM CST Subjective: NAEO; patient reports no issues overnight. Esteban has been gotten redder this morning as the CBI gottitrated down denies chest pains troubles breathing no nausea no vomiting Allergies Allergen Reactions Penicillins Hives Objective: Filed Vitals: 09/23/24 2200 09/24/24 0001 09/24/24 0400 09/24/24 0837 BP: (!) 148/77 139/72 (!) 149/79 (!) 147/89 Pulse: (!) 59 65 (!) 52 69 Resp: 15 15 14 Temp: 98 ??F (36.7 ??C) 97.6 ??F (36.4 ??C) 97.5 ??F (36.4 ??C) TempSrc: Oral Oral Axillary SpO2: 99% 96% 97% 97% Weight: Height: PainSc: I/O last 3 completed shifts: In: 43528 [P.O.:240; I.V.:1816; Other:25905; IV Piggyback:50] Out: 11576 [Urine:12699; Blood:50] PHYSICAL EXAM General: Alert, cooperative, no distress, appears stated age Resp: EWOB, symmetric chest rise CV: Regular rate and rhythm, warm/dry extremities Abdomen: Soft, non-tender, non-distended : Three-way Esteban clear red on the slow drip CBI urine urine Extremities:Extremities nl, atraumatic, no cyanosis or edema Pulses: 2+ and symmetric all extremities Psych: Affect and behavior normal Labs: Recent Labs Lab 09/24/24 0727 HGB 8.4* HCT 28.0* Recent Labs Lab 09/24/24 0727 NA 141 K 3.9 CL 111 CO2 25.6 AGAP 4.4 BUN 30* CR 1.81* BUNCREATININ 16.6 GLU 131* CA 8.6 No results for input(s): APTT , INR , PTT in the last 168 hours. Imaging: No results found. Assessment/Plan: SNOMED CT(R) 1. BPH with obstruction/lower urinary tract symptoms BENIGN PROSTATIC HYPERPLASIA WITH OUTFLOW OBSTRUCTION 2. Retention of urine, unspecified RETENTION OF URINE 3. Postsurgical aortocoronary bypass status HISTORY OF CORONARY ARTERY BYPASS GRAFTING 4. MCC (current) use of anticoagulants LONG-TERM CURRENT USE OF ANTICOAGULANT Postop day #1 status post HoLEP for BPH. Urine is clearing he has a history of anemia preoperatively with a hemoglobin of 9.8. Will monitor his urine if it stays clear we will give voiding trial in the afternoon. Creatinine at baseline 1.8. Nahum Olmstead MD NT RESOLUTION SPECIALIST * Ryann Olmstead RN - 09/24/2024 8:12 AM CST 09/24/24 0811 Referral Data Source of Information Patient Patient Information Primary Caregiver Self;Spouse/Significant Other Current living Situation Spouse/significant other Type of Residence Private residence Support System Spouse/Significant Other Are you employed? Retired Recent Hospitalization Recent Hospitalization within 30 days No Baseline ADL's Functional Status Independent Behavior Oriented;Cooperative Communication Talks;Understands speaking Psychosocial Need Indicator Mental health concerns No Diagnosis/prognosis resulting in poor adjustment or coping with illness No Diagnosis/prognosis with anticipated outcome of major lifestyle changes, including change in jail living environment No Complex Family concerns No Abuse and/or neglect of elder, adult or child No Psychiatric and/or substance abuse issues affecting current hospitalization No Homelessness with lack of safe discharge environment No Need for guardianship petition No Involuntary patient No DC screening tool This is a screening tool it does not take the place of a physical or occupational therapy evaluation. The screening is to screen the patient for what services and destination would be beneficial for patient for next level of care Conversation with the patient/family Will the patient be returning to prior living situation with no new identified needs? Yes Based on the screening the DC plan for consideration is: Patient expects to be discharged to: Home or Self care no new needs Adequate Resources Available Adequate Resources Yes NCM performed bedside interview, patient's name and verified: Hx: Prostate surg 09/23 Support: spouse Home: private residence with spouse. Outside steps but no obstacles Ambulation: independent DME products: none Medical Devices: none ADLs: independent Drives: yes Transport Home: son Skin/Bladder/Bowel: current esteban and CBI A/O: x 4 Communication: no deficits Home Health: none current Occupation: retired Pharmacy: [facility] Concerns: none voiced PCP: Ruthie Insurance Plan: Medicare A&B/ Physician's Manning supp Discharge needs: no immediate dc needs identified. May need home health pending response to treatment. Plans to return home with spouse when medically ready. Care Coordination Team will provide discharge planning as needed, and will re- evaluate based on recommendations, treatment course, and the patient's expressed preferences. NT RESOLUTION SPECIALIST * Pia Rivero RN - 09/23/2024 4:28 PM CSTSummary: Care Plan Problem: Pain Goal: Patient's pain/discomfort is manageable Description: Assess and monitor patient's pain using appropriate pain scale. Collaborate with interdisciplinary team and initiate plan and interventions as ordered. Re-assess patient's pain level 30 - 60 minutes after pain management intervention. Outcome: Progressing Problem: Safety Goal: Patient will be injury free during hospitalization Description: Assess and monitor vitals signs, neurological status including level of consciousness and orientation. Assess patient's risk for falls and implement fall prevention plan of care and interventions per hospital policy. Ensure arm band on, uncluttered walking paths in room, adequate room lighting, call light and overbed table within reach, bed in low position, wheels locked, side rails up per policy, and non-skid footwear provided. Outcome: Progressing Problem: Daily Care Goal: Daily care needs are met Description: Assess and monitor ability to perform self care and identify potential discharge needs. Outcome: Progressing Problem: Psychosocial Needs Goal: Demonstrates ability to cope with hospitalization/illness Description: Assess and monitor patients ability to cope with his/her illness. Outcome: Progressing Goal: Collaborate with patient/family/caregiver to identify patient specific goals for this hospitalization Outcome: Progressing Problem: Discharge Barriers Goal: Patient's discharge needs are met Description: Collaborate with interdisciplinary team and initiate plans and interventions as needed. Outcome: Progressing Problem: Pain - Acute Goal: Achieve acceptable pain level Outcome: Progressing Problem: Infection - Risk of, Urinary Catheter-Associated Urinary Tract Infection Goal: Absence of Urinary Catheter Associated Urinary Tract (UTI) Infection Signs and Symptoms Outcome: Progressing Pia Rivero RN NT RESOLUTION SPECIALIST documented in this encounter H&P Notes * Prerna Caruso MD - 09/23/2024 11:58 AM CST Images from the original note were not included. Attending Provider: Prerna Caruso MD PCP: JEANNE VARGAS MD Ayla Hartley is an 79-year-old male. Reason for Admission: * No active hospital problems. 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 Bladder is hypotonic. Prostate is 111 g with a large median lobe. Clearance from his intelligence consultant at [place]. Preop culture 09/08/2024 was E coli sensitive to ceftriaxone and he was treated since then with ciprofloxacintherapeutic and then Macrobid through surgery. Past Medical History: Diagnosis Date CAD (coronary artery disease) CHF (congestive heart failure) ([facility] HHS/HCC) CKD (chronic kidney disease), symptom management only, stage 3 (moderate) ([facility]/HCC) CLL (chronic lymphocytic leukemia) ([facility] HHS/HCC) Enlarged prostate Hypertension Ischemic cardiomyopathy Kidney stones Mixed hyperlipidemia Paroxysmal atrial fibrillation ([facility]) Allergies: Allergies Allergen Reactions Penicillins Hives Social History Tobacco Use Smoking status: Former Types: Cigarettes Smokeless tobacco: Never Tobacco comments: Quit smoking 1975 Substance Use Topics Alcohol use: Not Currently Comment: rare beer Past Surgical History: Procedure Laterality Date CORONARY ARTERY BYPASS GRAFT 03/14/2024 x4 - VILLALTA-LAD, RHL-EC-Bdqvm PLB, SVG-PDA, JOYCE clip LITHOTRIPSY No family history on file. Travel Exposure: No current facility-administered medications on file prior to encounter. Current Outpatient Medications on File Prior to Encounter Medication Sig amiodarone (PACERONE) 200 MG tablet Take 1 tablet (200 mg total) by mouth daily. aspirin 81 MG chewable tablet Chew 1 tablet (81 mg total) by mouth daily. coenzyme Q-10 (CO Q-10) 100 MG capsule Take 1 capsule (100 mg total) by mouth daily. finasteride (PROSCAR) 5 MG tablet Take 1 tablet (5 mg total) by mouth daily. furosemide (LASIX) 40 MG tablet Take 0.5 tablets (20 mg total) by mouth daily. metoprolol succinate ER (TOPROL-XL) 25 MG 24 hr tablet Take 1 tablet (25 mg total) by mouth daily. pantoprazole EC (PROTONIX) 40 MG tablet Take 1 tablet (40 mg total) by mouth daily. rivaroxaban (XARELTO) 20 MG Tab tablet Take 1 tablet (20 mg total) by mouth daily. rosuvastatin (CRESTOR) 40 MG tablet Take 1 tablet (40 mg total) by mouth daily. sacubitril-valsartan (ENTRESTO) 49-51 MG tablet Take 1 tablet by mouth 2 (two) times daily. senna-docusate (SENOKOT-S) 8.6-50 MG tablet Take 2 tablets by mouth 2 (two) times daily. solifenacin (VESICARE) 5 MG tablet Take 1 tablet (5 mg total) by mouth daily. spironolactone (ALDACTONE) 25 MG tablet Take 0.5 tablets (12.5 mg total) by mouth daily. Blood pressure (!) 158/84, pulse (!) 54, resp. rate 16, height 1.905 m (6' 3 ), weight 87.7 kg (193lb 5.5 oz), SpO2 96%. Review of Systems All other systems reviewed and are negative. Physical Exam Constitutional: Appearance: Normal appearance. He is well-developed. HENT: Head: Normocephalic and atraumatic. Eyes: Pupils: Pupils are equal, round, and reactive to light. Skin: General: Skin is warm and dry. Neurological: Mental Status: He is alert and oriented to person, place, and time. Psychiatric: Judgment: Judgment normal. Assessment: 79-year-old male with 111 g prostate with chronic urinary retention Plan: We reviewed surgery including risks of bleeding and temporary incontinence. We reviewed how surgeryis performed as well as perioperative details and postoperative restrictions. All questions answered, proceed with HoLEP. He may stay tonight given the size of his prostate which could require ongoing CBI. Prerna Caruso MD [facility]: [phone] Office phone number: [phone] PRERNA CARUSO MD 09/23/2024 NT RESOLUTION SPECIALIST documented in this encounter Nursing Notes * Pia Rivero RN - 09/23/2024 5:35 PM CSTSummary: Provider Notification Messaged Dr. Caruso that pt BP has been high since PACU but last BP 151/110 1741: 151/77 Pia Rivero RN NT RESOLUTION SPECIALIST NT RESOLUTION SPECIALIST * Stephany Jewell RN - 09/23/2024 12:00 PM CST Family member/Amilcar Son called and updated regarding procedure at 1325 NT RESOLUTION SPECIALIST documented in this encounter OR Notes * Op Note - Prerna Caruso MD - 09/23/2024 2:22 PM CST Procedure: 1. Holmium laser enucleation of the prostate 2. Morcellation of prostate adenoma Findings: 1. Enucleation time 44 min 2. Morcellation time 7 min 3. Preop size 111 g Details: The patient was brought back to the operating room. He was prepped, draped, padded per protocol. Ceftriaxone was administered. The urethra was dilated to 30 Bahamian with Mccormick sounds. The 26 Bahamian resectoscope sheath was inserted with the visual obturator. The anterior urethra was unremarkable.The prostatic urethra was significantly enlarged. The bladder itself was mildly trabeculated. The ureteral orifices were close to the prostate but were identified. The bridge was switched out for thelaser fiber offset bridge. Using settings of 2 J and 45 Hz with the 550 ??m holmium fiber, the apexof the prostate was scored circumferentially with low energy. Using an early apical release technique, the prostate adenoma was enucleated progressing towards the bladder neck. The adenoma was a bit mushy and the capsular plane wasn't as defined as I would have expected. Once at the bladder neck,the ureteral orifices were visualized and were uninjured during the remainder of the enucleation. The Skinner Piranha morcellator and the offset nephroscope were then used to morcellate the tissue. Bothinflows were flowing to prevent bladder collapse. There was no bladder injury noted. All prostate tissue was morcellated. We reinspected the bladder multiple times to confirm that there was no residual adenoma or mucosal injury. The scope was removed. A 22 Bah[place]ian three-way Esteban catheter was placedinto the bladder. The balloon was filled with 50 mL of sterile water. The bladder was irrigated andthe urine was clear. The catheter was hooked up to continuous bladder irrigation the patient was sent to recovery. NT RESOLUTION SPECIALIST * OR PreOp - Maribell Aponte RN - 09/17/2024 10:20 AM CST Clearance and med instructions received from Dr Blunt's office. Ok to hold xarelto 3 days before surgery and ok to hold aspirin 7 days before surgery. Notified patient of the instructions. He voiced understanding. NT RESOLUTION SPECIALIST * OR PreOp - Larissa Loera CNP - 09/16/2024 2:16 PM CST Chart reviewed. Per phone interview, patient denies any SOB/CP with 2 FOS or recent changes in activity tolerance in past 6 months. Patient sees intelligence consultant Dr. Blunt and previous cardiac testing copied. Please request cardiac clearance. Addendum 09/18/24 Cardiac clearance per Angélica Isbell NP - Hold Xarelto 3 days before surgery. Hold aspirin 7 daysbefore surgery. Patient on entresto for h/o HTN. States baseline BP runs 130/80. Per Anesthesia recommendations, please have patient hold for surgery and to bring medication with them on DOS. High risk CAREN Echo 08/12/24 Ejection fraction is measured at 35 %. Global Longitudinal Strain is -11 %. The left ventricle is normal in size with concentric left ventricular remodeling pattern. There is global moderate reduction in left ventricular systolic function. The LVEF is estimated to be 35-40%. The right ventricle is normal in size and systolic function. There is atrial septal bowing towards the right atrium suggestive of left-sided pressure overload EKG 03/21/24 Normal sinus rhythm Left axis deviation Left ventricular hypertrophy with QRS widening ( R in aVL , Orting product ) Prolonged QT Abnormal ECG When compared with ECG of 20-MAR-2024 04:56, Incomplete right bundle branch block is no longer Present Rate 74 Echo 03/13/24 Normal LV size and low systolic function. Mild to mod concentric LV hypertrophy. Could not r/o mildhypokinesis of basal inferior and basal inferoseptal wall from limited apical views. Normal RV size and function. Mild thickened MV with mild MR. Mild TR. Asc Ao measures 4.7 cm in current TTE views (suggest CTA for further assessment if clinically indicated). Trace pericardial effusion.No previous study for the comparison. Carotid duplex 03/12/24 1. Normal bilateral internal carotid arteries, no evidence of plaque. 2. Normal, antegrade flow is noted in bilateral vertebral arteries. 3. Ectatic vessels with a diameter of 0.9 cm noted in the distal CCA and proximal ICA bilaterally. NT RESOLUTION SPECIALIST NT RESOLUTION SPECIALIST * OR PreOp - Tara Florian RN - 09/16/2024 2:02 PM CST PATIENT CAN CLIMB 2 FLIGHTS OF STAIRS WITHOUT CP OR EXTREME SOB. yes ACTIVITY TOLERANCE IS THE SAME 6 MONTHS AGO. yes DENIES CARDIAC TESTING. Sees Dr Blunt for Cardiology AVERAGE BLOOD PRESSURE? 130/[address] Jenkins's office request for Cardiac Clearance and ASA/Xarelto holding instructions. Called to confirm receipt of fax, spoke with Christopher. She asked that we fax request to . Re-sent faxed request. NT RESOLUTION SPECIALIST NT RESOLUTION SPECIALIST NT RESOLUTION SPECIALIST documented in this encounter Plan of Treatment Not on file documented as of this encounter Procedures Procedure Name Priority Date/Time Associated Diagnosis Comments HEMOGLOBIN AND HEMATOCRIT Routine 09/25/2024 6:45 AM CLIENT RESOLUTION SPECIALIST BASIC METABOLIC PANEL Routine 09/25/2024 6:45 AM CLIENT RESOLUTION SPECIALIST HEMOGLOBIN AND HEMATOCRIT STAT 09/24/2024 2:05 PM CLIENT RESOLUTION SPECIALIST HEMOGLOBIN AND HEMATOCRIT Routine 09/24/2024 7:27 AM CLIENT RESOLUTION SPECIALIST BASIC METABOLIC PANEL Routine 09/24/2024 7:27 AM CLIENT RESOLUTION SPECIALIST LASER PROSTATECTOMY 09/23/2024 1 2:41 PM CLIENT RESOLUTION SPECIALIST BENIGN PROSTATIC HYPERTROPHY WITH LOWER URINARY TRACT SYMPTOMS, URINARY RETENTION N40.1, R33.9, Z95.1, Z79.0 Case Notes SCHED BY FAX 08/08/2024 LCS PHONE ASSESS Special Needs SHORT STAY JOSÉ LASER PATHOLOGY Routine 09/23/2024 12:00 AM CLIENT RESOLUTION SPECIALIST documented in this encounter Results * (ABNORMAL) BASIC METABOLIC PANEL (09/25/2024 6:45 AM CLIENT RESOLUTION SPECIALIST) GLUCOSE 113(H) 70 - 99 MG/DL 09/25/2024 7:24 AM [facility] BUN 27(H) 7 - 18 MG/DL 09/25/2024 7:24 AM [facility] CREATININE S/P/B 1.62(H) 0.7 - 1.3 MG/DL 09/25/2024 7:24 AM [facility] SODIUM S/P/B 139 136 - 145 MMOL/L 09/25/2024 7:24 AM [facility] POTASSIUM S/P/B 3.7 3.5 - 5.1 MMOL/L 09/25/2024 7:24 AM [facility] CHLORIDE S/P/B 109 97 - 115 MMOL/L 09/25/2024 7:24 AM [facility] CO2 27.9 21 - 32 MMOL/L 09/25/2024 7:24 AM [facility] CALCIUM S/P/B 9.0 8.5 - 10.1 MG/DL 09/25/2024 7:24 AM [facility] ANION GAP 2.1 2 - 10 MMOL/L 09/25/2024 7:24 AM [facility] BUN CREATININE RATIO 16.7 6 - 26 09/25/2024 7:24 AM [facility] GFR ESTIMATE 43(L) >90 ML/MIN/1.7 3 M2 09/25/2024 7:24 AM [facility] Comment: NOTE: eGFR is not calculated for patients <18 years of age or gender unknown. This is an estimated GFR calculation using the new CKD EPI creatinine equation without race and so does not require a correction factor for race. This estimated GFR should not be used for calculating drug doses. 09/25/2024 6:45 AM CLIENT RESOLUTION SPECIALIST Nahum Olmstead MD LABORATORY Final Res ult Performing Organization Address City/[facility]/ZIP Co de Phone Number [facility] [address] [place] [address], [place] [phone] * (ABNORMAL) HEMOGLOBIN AND HEMATOCRIT (09/25/2024 6:45 AM CLIENT RESOLUTION SPECIALIST) HGB 8.5(L) 14.0 - 18.0 G/DL 09/25/2024 7:06 AM CLIENT RESOLUTION SPECIALIST [facility] HCT 28.8(L) 43.0 - 54.0 % 09/25/2024 7:06 AM CLIENT RESOLUTION SPECIALIST [facility] 09/25/2024 6:45 AM CLIENT RESOLUTION SPECIALIST Nahum Olmstaed MD LABORATORY Final Res ult Performing Organization Address [facility]/ZIP Co de Phone Number [facility] [address] [place] [address], [place] [phone] * (ABNORMAL) HEMOGLOBIN AND HEMATOCRIT (09/24/2024 2:05 PM CLIENT RESOLUTION SPECIALIST) HGB 8.0(L) 14.0 - 18.0 G/DL 09/24/2024 2:19 PM CLIENT RESOLUTION SPECIALIST [facility] HCT 27.2(L) 43.0 - 54.0 % 09/24/2024 2:19 PM CLIENT RESOLUTION SPECIALIST [facility] 09/24/2024 2:05 PM CLIENT RESOLUTION SPECIALIST Nahum Olmstead MD LABORATORY Final Res ult [facility] [address] [place] [address], [place] [phone] * (ABNORMAL) HEMOGLOBIN AND HEMATOCRIT (09/24/2024 7:27 AM CLIENT RESOLUTION SPECIALIST) HGB 8.4(L) 14.0 - 18.0 G/DL 09/24/2024 8:00 AM [facility] HCT 28.0(L) 43.0 - 54.0 % 09/24/2024 8:00 AM [facility] 09/24/2024 7:27 AM CLIENT RESOLUTION SPECIALIST us Prerna Caruso MD LABORATORY Final Res ult [facility] [address] [place] [address], [place] [phone] * (ABNORMAL) BASIC METABOLIC PANEL (09/24/2024 7:27 AM CLIENT RESOLUTION SPECIALIST) Pathologist [facility] GLUCOSE 131(H) 70 - 99 MG/DL 09/24/2024 8:44 AM [facility] BUN 30(H) 7 - 18 MG/DL 09/24/2024 8:44 AM [facility] CREATININE S/P/B 1.81(H) 0.7 - 1.3 MG/DL 09/24/2024 8:44 AM [facility] SODIUM S/P/B 141 136 - 145 MMOL/L 09/24/2024 8:44 AM [facility] POTASSIUM S/P/B 3.9 3.5 - 5.1 MMOL/L 09/24/2024 8:44 AM [facility] CHLORIDE S/P/B 111 97 - 115 MMOL/L 09/24/2024 8:44 AM [facility] CO2 25.6 21 - 32 MMOL/L 09/24/2024 8:44 AM [facility] CALCIUM S/P/B 8.6 8.5 - 10.1 MG/DL 09/24/2024 8:44 AM [facility] ANION GAP 4.4 2 - 10 MMOL/L 09/24/2024 8:44 AM [facility] BUN CREATININE RATIO 16.6 6 - 26 09/24/2024 8:44 AM [facility] GFR ESTIMATE 38(L) >90 ML/MIN/1.7 3 M2 09/24/2024 8:44 AM [facility] Comment: NOTE: eGFR is not calculated for patients <18 years of age or gender unknown. This is an estimated GFR calculation using the new CKD EPI creatinine equation without race and so does not require a correction factor for race. This estimated GFR should not be used for calculating drug doses. 09/24/2024 7:27 AM CLIENT RESOLUTION SPECIALIST Prerna Caruso MD LABORATORY Final Res ult [facility] [address] [place] [address], * Pathology (09/23/2024 12:00 AM CLIENT RESOLUTION SPECIALIST) PATHOLOGY [facility] ? Department of Laboratory Medicine ?[address] ?[place] [address] ? , extension [phone] ? Pathology Report ? Surgical Pathology Report Name: AYLA HARTLEY ? Specimen #: [id number] Age: 4 1945 (Age: 79) ?Location: [id number] Sex: M ?Procedure Date: 09/23/2024 Hospital #: [id number] ?Date Received: 09/24/2024 Date Reported: 09/30/2024 Provider: PRERNA CARUSO MD Source: Prostate chips Clinical History: Benign prostatic hypertrophy with lower urinary tract symptoms and urinary retention. ?? FINAL DIAGNOSIS: Prostate, laser nucleation: ? -Prostatic acinar adenocarcinoma, conventional type, grade group 1 (Sarai score 3+3=6), involving ?approximately 5% of the [...] x 10 x 2.5 cm in aggregate. ??Skin Care Technician tissue is submitted in cassettes 1 through 18. Gross examination (when applicable), interpretation, and sign out were performed at [facility], [address] [place] [address]. All immunohistochemical and histochemical tests were developed by and performed at [facility], [address] [place] [address]. All tests reported here have not been cleared or approved by the U.S. Food and Drug Administration (FDA). This laboratory is regulated under CLIA as qualified to perform high-complexity testing. These tests are used for clinical purposes. They should not be regarded as investigational or for research. Positive and negative controls show appropriate reactivity. ?? Electronically Signed Out ? BREANA NORTON MD [facility] TISSUE PROSTATIC STRUCTURE / Unknown 09/23/2024 1:56 PM CLIENT RESOLUTION SPECIALIST Prerna Caruso MD PATHOLOGY/CYTOLOGY ORDERA BLES Final Result [facility] [address] [place] [address], [id number] documented in this encounter Visit Diagnoses Diagnosis Hypertrophy of prostate with urinary obstruction- Primary Hypertrophy of prostate with urinary obstruction and other lower urinary tract symptoms (LUTS) BPH with obstruction/lower urinary tract symptoms Hypertrophy of prostate with urinary obstruction and other lower urinary tract symptoms (LUTS) Retention of urine, unspecified Postsurgical aortocoronary bypass status [facility] (current) use of anticoagulants Long-term (current) use of anticoagulants documented in this encounter Admitting Diagnoses Diagnosis Hypertrophy of prostate with urinary obstruction Hypertrophy of prostate with urinary obstruction and other lower urinary tract symptoms (LUTS) documented in this encounter Administered Medications Inactive Administered Medications - up to 3 most recent administrations Medication Order MAR Action Action Date Dose Rate Site amiodarone (PACERONE) tablet 200 mg 200 mg, Oral, Daily, First dose on Sun09/24/24 at 0900, Until Discontinued Given 09/25/2024 8:51 AM CLIENT RESOLUTION SPECIALIST 200 mg Given 09/24/2024 8:35 AM CLIENT RESOLUTION SPECIALIST 200 mg atorvastatin (LIPITOR) tablet 80 mg 80 mg, Oral, Nightly at bedtime, First dose on Sun09/23/24 at 2100, Until Discontinued Given 09/24/2024 9:27 PM CLIENT RESOLUTION SPECIALIST 80 mg Given 09/23/2024 9:33 PM CLIENT RESOLUTION SPECIALIST 80 mg cefTRIAXone (ROCEPHIN) 1 g in sodium chloride 0.9 % 50 mL IVPB 1 g, Intravenous, at 100 mL/hr, Every 24 hours, 1 dose, First dose on Sun09/24/24 at 1200 New Bag 09/24/2024 11:41 AM CLIENT RESOLUTION SPECIALIST 1 g 100 mL /hr docusate sodium (COLACE) capsule 100 mg 100 mg, Oral, 2 times daily, First dose on Sun09/23/24 at 2100, Until Discontinued, Post-Op Given 09/25/2024 8:51 AM CLIENT RESOLUTION SPECIALIST 100 mg Given 09/24/2024 9:27 PM CLIENT RESOLUTION SPECIALIST 100 mg Given 09/23/2024 9:33 PM CLIENT RESOLUTION SPECIALIST 100 mg famotidine (PF) (PEPCID) injection 20 mg 20 mg, Intravenous, Once, 1 dose, On Sun09/23/24 at 1115, On admission IV Push over 2 minutes, Pre-Op Given 09/23/2024 10:58 AM CLIENT RESOLUTION SPECIALIST 20 mg furosemide (LASIX) tablet 20 mg 20 mg, Oral, Daily, First dose on Sun09/23/24 at 1645, Until Discontinued Given 09/25/2024 8:51 AM CLIENT RESOLUTION SPECIALIST 20 mg Given 09/24/2024 8:35 AM CLIENT RESOLUTION SPECIALIST 20 mg Given 09/23/2024 4:45 PM CLIENT RESOLUTION SPECIALIST 20 mg lactated ringers infusion at 10 mL/hr, Intravenous, Continuous, Starting on Sun09/23/24 at 1115, Until Sun09/23/24 at 1425, Infuse at TKO rate, Pre-Op Continued by Anesthesia 09/23/2024 12:41 PM CLIENT RESOLUTION SPECIALIST 10 mL/hr New Bag 09/23/2024 10:55 AM CLIENT RESOLUTION SPECIALIST 10 mL/hr metoprolol succinate ER (TOPROL-XL) 24 hr tablet 25 mg 25 mg, Oral, Daily, First dose on Sun09/24/24 at 0900, Until Discontinued, May be split in half along the tablet score line; do not chew or crush. Given 09/25/2024 8:53 AM CLIENT RESOLUTION SPECIALIST 25 mg Given 09/24/2024 8:35 AM CLIENT RESOLUTION SPECIALIST 25 mg pantoprazole EC (PROTONIX) tablet 40 mg 40 mg, Oral, Daily, First dose on Sun09/24/24 at 0900, Until Discontinued, Do not break, chew, or crush. Given 09/25/2024 8:51 AM CLIENT RESOLUTION SPECIALIST 40 mg Given 09/24/2024 8:35 AM CLIENT RESOLUTION SPECIALIST 40 mg sacubitril-valsartan (ENTRESTO) 24-26 MG tablet 2 tablet 2 tablet, Oral, 2 times daily, First dose on Sun09/23/24 at 2100, Until Discontinued Given 09/25/2024 8:51 AM CLIENT RESOLUTION SPECIALIST 2 tablets Given 09/24/2024 9:27 PM CLIENT RESOLUTION SPECIALIST 2 tablets Given 09/24/2024 8:35 AM CLIENT RESOLUTION SPECIALIST 2 tablets senna-docusate (SENOKOT-S) 8.6-50 MG tablet 2 tablet 2 tablet, Oral, 2 times daily, First dose on Sun09/23/24 at 2100, Until Discontinued Given 09/25/2024 8:51 AM CLIENT RESOLUTION SPECIALIST 2 tablets Given 09/24/2024 9:27 PM CLIENT RESOLUTION SPECIALIST 2 tablets Given 09/23/2024 9:33 PM CLIENT RESOLUTION SPECIALIST 2 tablets sodium chloride 0.9 % irrigation 3,000 mL 3,000 mL, Irrigation, Continuous, Starting on Sun09/23/24 at 1645, Until Sun09/25/24 at 1600 New Bag 09/25/2024 10:10 AM CLIENT RESOLUTION SPECIALIST 3,000 mLs New Bag 09/25/2024 8:44 AM CLIENT RESOLUTION SPECIALIST 3,000 mLs New Bag 09/25/2024 6:11 AM CLIENT RESOLUTION SPECIALIST 3,000 mLs sodium chloride 0.9% infusion at 100 mL/hr, Intravenous, Continuous, Starting on Sun09/23/24 at 1645, Until Sun09/25/24 at 1600, Post-Op New Bag 09/23/2024 4:45 PM CLIENT RESOLUTION SPECIALIST 100 mL/hr solifenacin (VESICARE) tablet 5 mg 5 mg, Oral, Daily, First dose on Sun09/24/24 at 0900, Until Discontinued, Do not break, chew, or crush. Given 09/25/2024 8:51 AM CLIENT RESOLUTION SPECIALIST 5 mg Given 09/24/2024 8:35 AM CLIENT RESOLUTION SPECIALIST 5 mg spironolactone (ALDACTONE) Split tab 12.5 mg 12.5 mg, Oral, Daily, First dose on Sun09/23/24 at 1645, Until Discontinued, HAZARDOUS MEDICATION: wear single chemotherapy approved gloves. Do not open or split. If crushing, use approved closed-system crushing device for hazardous medications. Given 09/25/2024 8:51 AM CLIENT RESOLUTION SPECIALIST 12.5 mg Given 09/24/2024 8:35 AM CLIENT RESOLUTION SPECIALIST 12.5 mg Given 09/23/2024 4:45 PM CLIENT RESOLUTION SPECIALIST 12.5 mg documented in this encounter Active and Recently Administered Medications Times are shown in CLIENT RESOLUTION SPECIALIST. Scheduled Medication Order 09/23/2024 09/24/2024 09/25/2024 amiodarone (PACERONE) tablet 200 mg 200 mg, Oral, Daily, First dose on Sun09/24/24 at 0900, Until Discontinued 0835 (Given - Provider: Gabbie Montana RN) 0851 (Given - Provider: Boy Solitario, TEJA) atorvastatin (LIPITOR) tablet 80 mg 80 mg, Oral, Nightly at bedtime, First dose on Sun09/23/24 at 2100, Until Discontinued 2133 (Given - Provider: Betsy Dailey, TEJA) 2126 (Given - Provider: Betsy Dailey, TEJA) cefTRIAXone (ROCEPHIN) 1 g in sodium chloride 0.9 % 50 mL IVPB (COMPLETED) 1 g, Intravenous, at 100 mL/hr, Every 24 hours, 1 dose, First dose on Sun09/24/24 at 1200 1141 (New Bag - Provider: Indiaan Cramer, TEJA)1211 (Infusion Stop Time - Provider: Nathalia Membreno RN) cefTRIAXone (ROCEPHIN) 2 g in sodium chloride 0.9 % 50 mL IVPB (COMPLETED) 2 g, Intravenous, at 100 mL/hr, call center professional to O.R., 1 dose, First dose on Sun09/23/24 at 1015, Pre-Op 1249 (New Bag - Provider: Andre Mccollum CRNA)1319 (Infusion Stop Time - Provider: Andre Mccollum CRNA) docusate sodium (COLACE) capsule 100 mg 100 mg, Oral, 2 times daily, First dose on Sun09/23/24 at 2100, Until Discontinued, Post-Op 2132 (Given - Provider: Betsy Dailey RN) 0835 (Hold - Provider: Gabbie Montana RN - Reason: Patient/family declined)2126 (Given - Provider: Betsy Dailey RN) 0851 (Given - Provider: Boy Solitario RN) famotidine (PF) (PEPCID) injection 20 mg (COMPLETED) 20 mg, Intravenous, Once, 1 dose, On Sun09/23/24 at 1115, On admission IV Push over 2 minutes, Pre-Op 1058 (Given - Provider: Ce Galloway RN) furosemide (LASIX) tablet 20 mg 20 mg, Oral, Daily, First dose on Sun09/23/24 at 1645, Until Discontinued 1645 (Given - Provider: Pia Rivero RN) 0835 (Given - Provider: Gabbie Montana RN) 0851 (Given - Provider: Boy Solitario RN) metoprolol succinate ER (TOPROL-XL) 24 hr tablet 25 mg 25 mg, Oral, Daily, First dose on Sun09/24/24 at 0900, Until Discontinued, May be split in half along the tablet score line; do not chew or crush. 0835 (Given - Provider: Gabbie Montana RN) 0853 (Given - Provider: Boy Solitario, TEJA) pantoprazole EC (PROTONIX) tablet 40 mg 40 mg, Oral, Daily, First dose on Sun09/24/24 at 0900, Until Discontinued, Do not break, chew, or crush. 0835 (Given - Provider: Gabbie Montana RN) 0851 (Given - Provider: Boy Solitario RN) sacubitril-valsartan (ENTRESTO) 24-26 MG tablet 2 tablet 2 tablet, Oral, 2 times daily, First dose on Sun09/23/24 at 2100, Until Discontinued 2132 (Given - Provider: Betsy Dailey RN) 0835 (Given - Provider: Gabbie Montana RN)2126 (Given - Provider: Betsy Dailey RN) 0851 (Given - Provider: Boy Solitario, TEJA) senna-docusate (SENOKOT-S) 8.6-50 MG tablet 2 tablet 2 tablet, Oral, 2 times daily, First dose on Sun09/23/24 at 2100, Until Discontinued 2132 (Given - Provider: Betsy Dailey RN) 0836 (Hold - Provider: Gabbie Montana RN - Reason: Patient/family declined)2126 (Given - Provider: Betsy Dailey RN) 0851 (Given - Provider: Boy Solitario, TEJA) solifenacin (VESICARE) tablet 5 mg 5 mg, Oral, Daily, First dose on Sun09/24/24 at 0900, Until Discontinued, Do not break, chew, or crush. 0835 (Given - Provider: Gabbie Montana RN) 0851 (Given - Provider: Boy Solitario, TEJA) spironolactone (ALDACTONE) Split tab 12.5 mg 12.5 mg, Oral, Daily, First dose on Sun09/23/24 at 1645, Until Discontinued, HAZARDOUS MEDICATION: wear single chemotherapy approved gloves. Do not open or split. If crushing, use approved closed-system crushing device for hazardous medications. 1645 (Given - Provider: Pia Rivero RN) 0835 (Given - Provider: Gabbie Montana RN) 0851 (Given - Provider: Boy Solitario, TEJA) Continuous Medication Order 09/23/2024 09/24/2024 09/25/2024 lactated ringers infusion (CANCELED) at 10 mL/hr, Intravenous, Continuous, Starting on Sun09/23/24 at 1115, Until Sun09/23/24 at 1425, Infuse at TKO rate, Pre-Op 1055 (New Bag - Provider: Ce Galloway RN)1241 (Continued by Anesthesia - Provider: Andre Mccollum CRNA)1423 (Anesthesia Volume Adjustment - Provider: Silvano Sheridan CRNA) sodium chloride 0.9 % irrigation 3,000 mL (CANCELED) 3,000 mL, Irrigation, Continuous, Starting on Sun09/23/24 at 1645, Until Sun09/25/24 at 1600 1638 (Continued to Floor - Provider: Pia Rivero, RN)1643 (New Bag - Provider: Pia Rivero, RN)1827 (New Bag - Provider: Pia Rivero RN)2100 (New Bag - Provider: Betsy Dailey RN)2143 (New Bag - Provider: Betsy Dailey RN)2320 (New Bag - Provider: Betsy Dailey RN)2355 (New Bag - Provider: Betsy Dailey RN) 0046 (New Bag - Provider: Betsy Dailey RN)0238 (New Bag - Provider: Betsy Dailey RN)0348 (New Bag - Provider: Betsy Dailey RN)0526 (New Bag - Provider: Betsy Dailey RN)0630 (New Bag - Provider: Betsy Dailey RN)0819 (New Bag - Provider: Gabbie Montana RN)0951 (New Bag - Provider: Nathalia Membreno RN)0952 (New Bag - Provider: Nathalia Membreno RN - Comment: Per yeimi Garcia to hang 4L at a time.)1020 (New Bag - Provider: Nathalia Membreno RN)1021 (New Bag - Provider: Nathalia Membreno RN)1115 (New Bag - Provider: Nathalia Membreno RN)1253 (New Bag - Provider: Nathalia Membreno RN - Comment: Per yeimi Garcia to hang 4L at a time.)1429 (New Bag - Provider: Nathalia Membreno RN)1553 (New Bag - Provider: Nathalia Membreno RN)1744 (New Bag - Provider: Mell Osullivan RN)1945 (New Bag - Provider: Betsy Dailey RN)2122 (New Bag - Provider: Betsy Dailey RN)2324 (New Bag - Provider: Betsy Dailey RN) 0230 (New Bag - Provider: Betsy Dailey RN)0339 (New Bag - Provider: Betsy Dailey RN)0611 (New Bag - Provider: Betsy Dailey RN)0844 (New Bag - Provider: Boy Solitario RN)1010 (New Bag - Provider: Boy Solitario RN) sodium chloride 0.9% infusion (CANCELED) at 100 mL/hr, Intravenous, Continuous, Starting on Sun09/23/24 at 1645, Until Annika 09/25/24 at 1600, Post-Op 1645 (New Bag - Provider: Pia Rivero RN) 0330 (Infusion Stop Time - Provider: Betsy Dailey RN) PRN Medication Order 09/23/2024 09/24/2024 09/25/2024 acetaminophen (TYLENOL) tablet 650 mg 650 mg, Oral, Every 4 hours PRN, Mild pain (Scale 1 - 3), Starting on Sun09/23/24 at 1625, Until Annika 09/25/24 at 1902, Maximum dose of acetaminophen is 4000 mg from all sources in 24 hours., Post-Op HYDROcodone-acetaminophen (NORCO) 5-325 MG tablet 1 tablet 1 tablet, Oral, Every 4 hours PRN, Moderate pain (Scale 4 - 7), Starting on Sun09/23/24 at 1625, Until Annika 09/25/24 at 1902, Maximum dose of acetaminophen is 4000 mg from all sources in 24 hours., Post-Op ondansetron (ZOFRAN) injection 4 mg 4 mg, Intravenous, Every 8 hours PRN, Nausea, Vomiting, Starting on Sun09/23/24 at 1625, Until Annika 09/25/24 at 1902, IV push over 2-5 minutes., Post-Op sodium chloride 0.9 % irrigation (COMPLETED) Continuous PRN, Starting on Sun09/23/24 at 1346, Until Sun09/23/24 at 1417, Intra-Op 1346 (New Bag - Provider: Prerna Caruso MD) 0821 (Infusion Stop Time - Provider: Gbabie Montana RN) documented in this encounter Care Teams Tableau Administrator Relationship Specialty Start Date End Date Jeanne Vargas MD [address] [place] [address] PCP - General INTERNAL MEDICINE 09/23/24 Denis Blunt MD [address] [place] [address] CARDIOVASCULAR DISEASE 09/16/24 documented as of this encounter
--- OUTSIDE RECORDS SUMMARY | 2024-10-08 03:33 | XMS_ITS | Encounter Summary ---
Author Organization [facility] Address [address] [place] [address]. [place] [address] [place] [address] Care Team Providers Care Power Line Installer And Repairer Name Role Phone Unavailable Primary Care Provider Unavailabl e Encounter Details Date Type Department Care Team (Late st Contact Info) Description 06/11/2015 [facility] [address] [place] [id number] , Brendon Elias MD Social History Tobacco Use Types Packs/Day Years Used Date Smoking Tobacco: Never Assessed Sex and Gender Information Value Date Recorded Sex Assigned at Not on file Legal Sex Male 7:25 PM CDT Gender Identity Not on file Sexual Orientation Not on file documented as of this encounter Plan of Treatment Not on file documented as of this encounter Visit Diagnoses Not on filedocumented in this encounter
--- OUTSIDE RECORDS SUMMARY | 2024-10-08 03:33 | XMS_ITS | Encounter Summary ---
Author Organization [facility] Address [address] [place] [address]. [place] [address] [place] [address] Care Team Providers Care Diver Tender Name Role Phone Unavailable Primary Care Provider Unavailabl e Reason for Visit * Reason Comments Echo (SCAN) Encounter Details Date Type Department Care Team (Late st Contact Info) Description 12/03/2017 [facility] [address] [place] [address] Scanned, Documents Echo (SCAN) Social History Tobacco Use Types Packs/Day Years [...] Procedure Name Priority Date/Time Associated Diagnosis Comments ECHO GENERIC (SCAN ORDER) Routine 12/03/2017 documented in this encounter Results * ECHO (12/03/2017) Anatomical Region Laterality Modality Other us Documents Scanned SCANNING Final Result documented in this encounter Visit Diagnoses Not on filedocumented in this encounter
--- OUTSIDE RECORDS SUMMARY | 2024-10-08 03:33 | XMS_ITS | Encounter Summary ---
Author Organization [facility] Address Critical access hospital6 [facility] [place] [address] [place] [address] Care Team Providers Care Supervisor Plastics Name Role Phone Denis Blunt MD Unavailable [phone] Jeanne Vargas MD Primary Care Provider [phone] Reason for Visit * Auth/Cert (Routine) Specialty Diagnoses / Procedures Referred By Contnikkie t Referred To Contact Diagnoses BENIGN PROSTATIC HYPERTROPHY WITH LOWER URINARY TRACT SYMPTOMS, URINARY RETENTION N40.1, R33.9, Z95.1, Z79.0 Procedures LASER ENUCLEATION PROSTATE W MORCELLATION HOLEP 111GRAMS HOLMIUM LASER ENUCLEATION OF PROSTATE Prerna Caruso MD [address] [facility] [place] [address] Phone: tel: fax: Referral ID Status Reason Start Date Expiration Date Visits Re quested Visits Authorized [id number] 1 1 Encounter Details Date Type Department Care Team (Late st Contact Info) Description 09/23/2024 12:[address] INTERPRETER - 09/23/2024 2:[address] INTERPRETER Surgery [facility] OR [place], [place] [id number] Prerna Caruso MD [address] [facility] [place] [address] HOLEP 111GRAMS HOLMIUM LASER ENUCLEATION OF PROSTATE Surgery Details Date/Time Status Location OR Service Patient Class Case Class Case Type Trauma Case? 09/23/2024 12:30 PM Posted B[facility]Y OR OR 1 Urology Short Stay/Outpati ent Surgery E - Elective No Panel 1 Procedure LRB Anes Op Region Wound Class Comments HOLEP 111GRAMS HOLMIUM LASER ENUCLEATION OF PROSTATE N/A General Prostate Clean Contaminate d Surgeon Surgeon Role Service Panel Prerna Caruso MD Primary Urology 1 Case Notes SCHED BY FAX 08/08/2024 LCS PHONE ASSESS Special Needs SHORT STAY JOSÉ LASER documented in this encounter Social History Tobacco Use Types Packs/Day Years Used Date Smoking Tobacco: Former Cigarettes Smokeless Tobacco: Never Tobacco Cessation:Counseling Given: Not Answered Comments:Quit smoking 1976 Alcohol Use Standard Drinks/Week Comments Not Currently 0 (1 standard drink = 0.6 oz pur e alcohol) rare beer [place] Answer Date Recorded In the past 12 months has ticketstreet, gas, oil, or water [facility] threatened to shut off services in your [...] time in the past 12 m [facility], were you homeless or living in a usp (including now)? No 09/23/2024 Sex and Gender Information Value Date Recorded Sex Assigned at Not on file Legal Sex Male 7:25 PM CDT Gender Identity Not on file Sexual Orientation Not on file documented as of this encounter Last Filed Vital Signs Vital Sign Reading Time Taken Comments Blood Pressure 147/78 09/23/2024 2:[address] INTERPRETER Pulse 54 09/23/2024 2:[address] INTERPRETER Temperature 36.1 ??C (96.9 ??F) 09/23/2024 2:19 PM CS T Respiratory Rate 5 09/23/2024 2:[address] INTERPRETER Oxygen Saturation 100% 09/23/2024 2:[address] INTERPRETER Inhaled Oxygen Concentration - - Weight 87.7 kg (193 lb 5.5 oz) 09/23/2024 10:[address] INTERPRETER Height 190.5 cm (6' 3 ) 09/23/2024 10:[address] INTERPRETER Body Mass Index 24.17 09/23/2024 10:[address] INTERPRETER documented in this encounter Functional Status * Are you deaf or do you have serious difficulty hearing Answer Date of Assessment Author Status No 09/25/2024 3:[address] INTERPRETER Boy Solitario RN Active * Are you blind or [...] as of this encounter Mental Status * Because of a physical, mental, or [...] PainSc: I/O last 3 completed shifts: In: 79902 [P.O.:940; Other:01023] Out: 98801 [Urine:54593] PHYSICAL EXAM General: Alert, cooperative, no distress, [...] HISTORY OF CORONARY ARTERY BYPASS GRAFTING 4. USP (current) use of anticoagulants LONG-TERM CURRENT USE [...] Prerna Caruso MD at 09/26/2024 2:[address] INTERPRE[address] INTERPRETER CIAL COURT INTERPRETER documented in this encounter Discharge Instructions * Attachments The following attachments cannot be sent through Care Everywhere. * Benign Prostatic Hyperplasia (Enlarged Prostate) Discharge Instructions (Telugu) documented in this encounter Medications at Time [...] for Documentation Clarification Ayla Hodge ; VISIT [id number] Query Response Sent: 09/29/24 07:[address] INTERPRETER From: Prerna Caruso MD Query question: Based on medical judgment and consideration of these clinical indicators, the following condition was evaluated, monitored and/or treated during this episode of care Provider response: Chronic heart failure with reduced EF CIAL COURT INTERPRETER Original Query Sent: 09/25/24 14:[address] INTERPRETER From: Joanne Echavarria To: Prerna Caruso MD [...] Lasix 20mg daily, Metoprolol 2mg daily - (09-23) Anes preprocedure note: Cardiovascular:+CHF. ROS comment: Echo [...] size and systolic function. - Historical data: [facility] Office visit (06/25/24) Interval history: HFrEF. - Received: PO Lasix 20mg daily, PO Metoprolol 25mg daily, continued monitoring weights and I&O's. CIAL COURT INTERPRETER CIAL COURT INTERPRETER * Ryann Olmstead RN - 09/24/2024 11:25 [...] Home or Self care no new needs CIAL COURT INTERPRETER * Nahum Olmstead MD - 09/24/2024 11:14 [...] PainSc: I/O last 3 completed shifts: In: 99035 [P.O.:240; I.V.:1816; Other:53128; IV Piggyback:50] Out: 23575 [Urine:31812; Blood:50] PHYSICAL EXAM General: Alert, cooperative, no distress, appears stated age Resp: EWOB, symmetric chest rise CV: Regular rate and rhythm, warm/dry extremities Abdomen: Soft, non-tender, non-distended : Three-way Esteban clear red on the slow drip CBI urine urine Extremities:Extremities nl, atraumatic, no cyanosis or edema Pulses: 2+ and symmetric all extremities Psych: Affect and behavior normal Labs: Recent Labs Lab 09/24/24 07 HGB 8.4* HCT 28.0* Recent Labs Lab 09/24/24726 NA 141 K 3.9 CL 111 CO2 [...] HISTORY OF CORONARY ARTERY BYPASS GRAFTING 4. USP (current) use of anticoagulants LONG-TERM CURRENT USE OF ANTICOAGULANT Postop day #1 status post HoLEP for BPH. Urine is clearing he has a history of anemia preoperatively with a hemoglobin of 9.8. Will monitor his urine if it stays clear we will give voiding trial in the afternoon. Creatinine at baseline 1.8. 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 May need home health pending response to treatment. Plans to return home with spouse when medically ready. Care Coordination Team will provide discharge planning as needed, and will re- evaluate based on recommendations, treatment course, and the patient's expressed preferences. CIAL COURT INTERPRETER * Pia Rivero RN - 09/23/2024 4:28 [...] and Symptoms Outcome: Progressing Pia Rivero RN CIAL COURT INTERPRETER documented in this encounter H&P Notes * [...] a large median lobe. 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 Preop culture 09/08/2024 was E coli sensitive to ceftriaxone and he was treated since then with ciprofloxacintherapeutic and then Macrobid through surgery. Past Medical History: Diagnosis Date CAD (coronary artery disease) CHF (congestive heart failure) ([facility]) CKD (chronic kidney disease), symptom management only, stage 3 (moderate) ([facility]/HCC) CLL (chronic lymphocytic leukemia) ([facility]) Enlarged prostate Hypertension Ischemic cardiomyopathy Kidney stones Mixed hyperlipidemia Paroxysmal atrial fibrillation ([facility]) Allergies: Allergies Allergen Reactions Penicillins Hives Social History Tobacco Use Smoking status: Former Types: Cigarettes Smokeless tobacco: Never Tobacco comments: Quit smoking 1975 Substance Use Topics Alcohol use: Not Currently Comment: rare beer Past Surgical History: Procedure Laterality Date CORONARY ARTERY BYPASS GRAFT 03/14/2024 x4 - VILLALTA-LAD, YRG-IH-Ujofl PLB, SVG-PDA, JOYCE clip LITHOTRIPSY No family [...] ongoing CBI. Prerna Caruso MD [facility]: [phone] Office phone number: [phone] PRERNA CARUSO MD 09/23/[address] INTERPRETER documented in this encounter Nursing Notes * Pia Rivero RN - 09/23/2024 5:35 PM CSTSummary: Provider Notification Messaged Dr. Caruso that pt BP has been high since PACU but last BP 151/110 1741: 151/[address] INTERPRETER CIAL COURT INTERPRETER * Stephany Jewell RN - 09/23/2024 12:00 PM CST Family member/Amilcar Son called and updated regarding procedure at [address] INTERPRETER documented in this encounter OR Notes * [...] administered. The urethra was dilated to 30 Thai with Dickinson sounds. The 26 Thai resectoscope sheath was inserted with the visual [...] injury. The scope was removed. A 22 Thai three-way Esteban catheter was placedinto the bladder. The balloon was filled with 50 mL of sterile water. The bladder was irrigated andthe urine was clear. The catheter was hooked up to continuous bladder irrigation the patient was sent to recovery. CIAL COURT INTERPRETER * OR PreOp - Maribell Aponte RN - 09/17/2024 10:20 AM CST Clearance and med instructions received from Dr Blunt's office. Ok to hold xarelto 3 days before surgery and ok to hold aspirin 7 days before surgery. Notified patient of the instructions. He voiced understanding. CIAL COURT INTERPRETER * OR PreOp - Larissa Loera CNP - 09/16/2024 2:16 PM CST Chart reviewed. Per phone interview, patient denies any SOB/CP with 2 FOS or recent changes in activity tolerance in past 6 months. Patient sees harbor boat pilot Dr. Fleissner and previous cardiac testing copied. Please request [...] QRS widening ( R in aVL , [place] product ) Prolonged QT Abnormal ECG When [...] the distal CCA and proximal ICA bilaterally. CIAL COURT INTERPRETER CIAL COURT INTERPRETER * OR PreOp - Tara Florian RN [...] fax request to . Re-sent faxed request. CIAL COURT INTERPRETER CIAL COURT INTERPRETER CIAL COURT INTERPRETER documented in this encounter Plan of Treatment Not on file documented as of this encounter Procedures Procedure Name Priority Date/Time Associated Diagnosis Comments HEMOGLOBIN AND HEMATOCRIT Routine 09/25/2024 6:[address] INTERPRETER BASIC METABOLIC PANEL Routine 09/25/2024 6:[address] INTERPRETER HEMOGLOBIN AND HEMATOCRIT STAT 09/24/2024 2:[address] INTERPRETER HEMOGLOBIN AND HEMATOCRIT Routine 09/24/2024 7:[address] INTERPRETER BASIC METABOLIC PANEL Routine 09/24/2024 7:[address] INTERPRETER LASER PROSTATECTOMY 09/23/2024 1 2:[address] INTERPRETER BENIGN PROSTATIC HYPERTROPHY WITH LOWER URINARY TRACT SYMPTOMS, URINARY RETENTION N40.1, R33.9, Z95.1, Z79.0 Case Notes SCHED BY FAX 08/08/2024 LCS PHONE ASSESS Special Needs SHORT STAY JOSÉ LASER PATHOLOGY Routine 09/23/2024 12:[address] INTERPRETER documented in this encounter Results * (ABNORMAL) BASIC METABOLIC PANEL (09/25/2024 6:[address] INTERPRETER) GLUCOSE 113(H) 70 - 99 MG/DL 09/25/2024 7:[address] INTERPRETER [facility] BUN 27(H) 7 - 18 MG/DL 09/25/2024 7:[address] INTERPRETER [facility] CREATININE S/P/B 1.62(H) 0.7 - 1.3 MG/DL 09/25/2024 7:[address] INTERPRETER [facility] SODIUM S/P/B 139 136 - 145 MMOL/L 09/25/2024 7:[address] [facility] POTASSIUM S/P/B 3.7 3.5 - 5.1 MMOL/L 09/25/2024 7:[address] INTERPRETER [facility] CHLORIDE S/P/B 109 97 - 115 MMOL/L 09/25/2024 7:[address] INTERPRETER [facility] CO2 27.9 21 - 32 MMOL/L 09/25/2024 7:[address] [facility] CALCIUM S/P/B 9.0 8.5 - 10.1 MG/DL 09/25/2024 7:[address] INTERPRETER [facility] ANION GAP 2.1 2 - 10 MMOL/L 09/25/2024 7:[address] [facility] BUN CREATININE RATIO 16.7 6 - 26 09/25/2024 7:[address] [facility] GFR ESTIMATE 43(L) >90 ML/MIN/1.7 3 M2 09/25/2024 7:[address] [facility] Comment: NOTE: eGFR is not calculated for patients <18 years of age or gender unknown. This is an estimated GFR calculation using the new CKD EPI creatinine equation without race and so does not require a correction factor for race. This estimated GFR should not be used for calculating drug doses. 09/25/2024 6:[address] INTERPRETER us Nahum Olmstead MD LABORATORY Final Res ult [facility] [address] [place] [address], [place] [phone] * (ABNORMAL) HEMOGLOBIN AND HEMATOCRIT (09/25/2024 6:[address] INTERPRETER) HGB 8.5(L) 14.0 - 18.0 G/DL 09/25/2024 7:[address] INTERPRETER [facility] HCT 28.8(L) 43.0 - 54.0 % 09/25/2024 7:[address] INTERPRETER [facility] 09/25/2024 6:[address] INTERPRETER Nahum Olmstead MD LABORATORY Final Res ult [facility] [address] [place] [address], [place] [phone] * (ABNORMAL) HEMOGLOBIN AND HEMATOCRIT (09/24/2024 2:[address] INTERPRETER) HGB 8.0(L) 14.0 - 18.0 G/DL 09/24/2024 2:[address] INTERPRETER [facility] HCT 27.2(L) 43.0 - 54.0 % 09/24/2024 2:[address] INTERPRETER [facility] 09/24/2024 2:[address] INTERPRETER Nahum Olmstead MD LABORATORY Final Res ult [facility] [address] [place] [address], [place] [phone] * (ABNORMAL) HEMOGLOBIN AND HEMATOCRIT (09/24/2024 7:[address] INTERPRETER) HGB 8.4(L) 14.0 - 18.0 G/DL 09/24/2024 8:[address] INTERPRETER [facility] HCT 28.0(L) 43.0 - 54.0 % 09/24/2024 8:[address] [facility] 09/24/2024 7:[address] INTERPRETER us Prerna Caruso MD LABORATORY Final Res ult [facility] [address] [place] [address], [place] [phone] * (ABNORMAL) BASIC METABOLIC PANEL (09/24/2024 7:[address] INTERPRETER) GLUCOSE 131(H) 70 - 99 MG/DL 09/24/2024 8:[address] [facility] BUN 30(H) 7 - 18 MG/DL 09/24/2024 8:[address] [facility] CREATININE S/P/B 1.81(H) 0.7 - 1.3 MG/DL 09/24/2024 8:[address] [facility] SODIUM S/P/B 141 136 - 145 MMOL/L 09/24/2024 8:[address] [facility] POTASSIUM S/P/B 3.9 3.5 - 5.1 MMOL/L 09/24/2024 8:[address] [facility] CHLORIDE S/P/B 111 97 - 115 MMOL/L 09/24/2024 8:[address] [facility] CO2 25.6 21 - 32 MMOL/L 09/24/2024 8:[address] [facility] CALCIUM S/P/B 8.6 8.5 - 10.1 MG/DL 09/24/2024 8:[address] [facility] ANION GAP 4.4 2 - 10 MMOL/L 09/24/2024 8:[address] INTERPRETER [facility] BUN CREATININE RATIO 16.6 6 - 26 09/24/2024 8:[address] INTERPRETER [facility] GFR ESTIMATE 38(L) >90 ML/MIN/1.7 3 M2 09/24/2024 8:[address] INTERPRETER [facility] Comment: NOTE: eGFR is not calculated for patients <18 years of age or gender unknown. This is an estimated GFR calculation using the new CKD EPI creatinine equation without race and so does not require a correction factor for race. This estimated GFR should not be used for calculating drug doses. 09/24/2024 7:[address] INTERPRETER us Prerna Caruso MD LABORATORY Final Res ult [facility] [address] [place] [address], * Pathology (09/23/2024 12:[address] INTERPRETER) PATHOLOGY [facility] ? Department of Laboratory Medicine ?[address] ?[place] [address] ? , extension [phone] ? Pathology Report ? Surgical Pathology Report Name: AYLA HARTLEY ? Specimen #: [id number] Age: 4 1945 (Age: 79) ?Location: [address] Sex: M ?Procedure Date: 09/23/2024 Hospital #: [id number] ?Date Received: 09/24/2024 Date Reported: 09/30/2024 Provider: [...] x 10 x 2.5 cm in aggregate. ??Intelligence Engineer tissue is submitted in cassettes 1 through 18. Gross examination (when applicable), interpretation, and sign out were performed at [facility], [address] [place] [address]. All immunohistochemical and histochemical tests were developed by and performed at [facility], [address] [place] [address]. All tests reported here have not been cleared or approved by the U.S. Food and Drug Administration (FDA). This laboratory is regulated under CLIA as qualified to perform high-complexity testing. These tests are used for clinical purposes. They should not be regarded as investigational or for research. Positive and negative controls show appropriate reactivity. ?? Electronically Signed Out ? BREANA NORTON MD [facility] TISSUE PROSTATIC STRUCTURE / Unknown 09/23/2024 1:[address] INTERPRETER Prerna Caruso MD PATHOLOGY/CYTOLOGY ORDERA MARIO Final Result [facility] [address] [place] [address], [id number] documented in this encounter Visit Diagnoses Not on filedocumented in this encounter Admitting Diagnoses Diagnosis Hypertrophy [...] 0900, Until Discontinued Given 09/25/2024 8:[address] INTERPRETER 200 mg Given 09/24/2024 8:[address] INTERPRETER 200 mg atorvastatin (LIPITOR) tablet 80 mg 80 mg, Oral, Nightly at bedtime, First dose on Sun09/23/24 at 2100, Until Discontinued Given 09/24/2024 9:[address] INTERPRETER 80 mg Given 09/23/2024 9:[address] INTERPRETER 80 mg docusate sodium (COLACE) capsule 100 mg 100 mg, Oral, 2 times daily, First dose on Sun09/23/24 at 2100, Until Discontinued, Post-Op Given 09/25/2024 8:[address] INTERPRETER 100 mg Given 09/24/2024 9:[address] INTERPRETER 100 mg Given 09/23/2024 9:[address] INTERPRETER 100 mg furosemide (LASIX) tablet 20 mg 20 mg, Oral, Daily, First dose on Sun09/23/24 at 1645, Until Discontinued Given 09/25/2024 8:[address] INTERPRETER 20 mg Given 09/24/2024 8:[address] INTERPRETER 20 mg Given 09/23/2024 4:[address] INTERPRETER 20 mg metoprolol succinate ER (TOPROL-XL) 24 hr tablet 25 mg 25 mg, Oral, Daily, First dose on Sun09/24/24 at 0900, Until Discontinued, May be split in half along the tablet score line; do not chew or crush. Given 09/25/2024 8:[address] INTERPRETER 25 mg Given 09/24/2024 8:[address] INTERPRETER 25 mg pantoprazole EC (PROTONIX) tablet 40 mg 40 mg, Oral, Daily, First dose on Sun09/24/24 at 0900, Until Discontinued, Do not break, chew, or crush. Given 09/25/2024 8:[address] INTERPRETER 40 mg Given 09/24/2024 8:[address] INTERPRETER 40 mg sacubitril-valsartan (ENTRESTO) 24-26 MG tablet 2 tablet 2 tablet, Oral, 2 times daily, First dose on Sun09/23/24 at 2100, Until Discontinued Given 09/25/2024 8:[address] INTERPRETER 2 tablets Given 09/24/2024 9:[address] INTERPRETER 2 tablets Given 09/24/2024 8:[address] INTERPRETER 2 tablets senna-docusate (SENOKOT-S) 8.6-50 MG tablet 2 tablet 2 tablet, Oral, 2 times daily, First dose on Sun09/23/24 at 2100, Until Discontinued Given 09/25/2024 8:[address] INTERPRETER 2 tablets Given 09/24/2024 9:[address] INTERPRETER 2 tablets Given 09/23/2024 9:[address] INTERPRETER 2 tablets sodium chloride 0.9 % irrigation Continuous PRN, Starting on Sun09/23/24 at 1346, Until Sun09/23/24 at 1417, Intra-Op New Bag 09/23/2024 1:[address] INTERPRETER 54,000 mLs solifenacin (VESICARE) tablet 5 mg 5 mg, Oral, Daily, First dose on Sun09/24/24 at 0900, Until Discontinued, Do not break, chew, or crush. Given 09/25/2024 8:[address] INTERPRETER 5 mg Given 09/24/2024 8:[address] INTERPRETER 5 mg spironolactone (ALDACTONE) Split tab 12.5 mg 12.5 mg, Oral, Daily, First dose on Sun09/23/24 at 1645, Until Discontinued, HAZARDOUS MEDICATION: wear single chemotherapy approved gloves. Do not open or split. If crushing, use approved closed-system crushing device for hazardous medications. Given 09/25/2024 8:[address] INTERPRETER 12.5 mg Given 09/24/2024 8:[address] INTERPRETER 12.5 mg Given 09/23/2024 4:[address] INTERPRETER 12.5 mg documented in this encounter Active and Recently Administered Medications Times are shown in OFFICIAL COURT INTERPRETER. Scheduled Medication Order 09/23/2024 09/24/2024 09/25/2024 amiodarone (PACERONE) tablet 200 mg 200 mg, Oral, Daily, First dose on Sun09/24/24 at 0900, Until Discontinued 0835 (Given - Provider: Gabbie Montana RN) 0851 (Given - Provider: Boy Solitario RN) atorvastatin (LIPITOR) tablet 80 mg 80 mg, Oral, Nightly at bedtime, First dose on Sun09/23/24 at 2100, Until Discontinued 2132 (Given - Provider: Betsy Dailey RN) 2126 (Given - Provider: Betsy Dailey RN) cefTRIAXone (ROCEPHIN) 1 g in sodium chloride 0.9 % 50 mL IVPB (COMPLETED) 1 g, Intravenous, at 100 mL/hr, Every 24 hours, 1 dose, First dose on Sun09/24/24 at 1200 1141 (New Bag - Provider: Indiana Cramer RN)1211 (Infusion Stop Time - Provider: Nathalia Membreno RN) cefTRIAXone (ROCEPHIN) 2 g in sodium chloride 0.9 % 50 mL IVPB (COMPLETED) 2 g, Intravenous, at 100 mL/hr, call worker to O.R., 1 dose, First dose on Sun09/23/24 at 1015, Pre-Op 1249 (New Bag - Provider: Andre Mccollum CRNA)1319 (Infusion Stop Time - Provider: Andre Mccollum CRNA) docusate sodium (COLACE) capsule 100 mg 100 mg, Oral, 2 times daily, First dose on Sun09/23/24 at 2100, Until Discontinued, Post-Op 213 (Given - Provider: Betsy Dailey RN) 0835 [...] 0851 (Given - Provider: Boy Solitario, TEJA) metoprolol succinate ER (TOPROL-XL) 24 hr tablet [...] 0851 (Given - Provider: Boy Solitario, TEJA) sacubitril-valsartan (ENTRESTO) 24-26 MG tablet 2 tablet [...] 0851 (Given - Provider: Boy Solitario RN) Continuous Medication Order 09/23/2024 09/24/2024 09/25/2024 lactated ringers infusion (CANCELED) at 10 mL/hr, Intravenous, Continuous, Starting on Sun09/23/24 at 1115, Until Sun09/23/24 at 1425, Infuse at TKO rate, Pre-Op 1055 (New Bag - Provider: Ce Galloway RN)1241 (Continued by Anesthesia - Provider: Andre Mccollum CRNA)1423 (Anesthesia Volume Adjustment - Provider: Silvano Geib, RUG BACKING STENCILER) sodium chloride 0.9 % irrigation 3,000 mL (CANCELED) 3,000 mL, Irrigation, Continuous, Starting on Sun09/23/24 at 1645, Until Sun09/25/24 at 1600 1638 (Continued to Floor - Provider: Pia Rivero RN)1643 (New Bag - Provider: Pia Rivero RN)1827 (New Bag - Provider: Pia Rivero [...] RN) 0230 (New Bag - Provider: Betsy A Asim, RN)0339 (New Bag - Provider: Betsy Dailey RN)0611 (New Bag - Provider: Betsy Dailey RN)0844 (New Bag - Provider: Boy Solitario, RN)1010 (New Bag - Provider: Boy Solitario, TEJA) sodium chloride 0.9% infusion (CANCELED) at 100 [...] PRN, Starting on Sun09/23/24 at 1346, Until e 09/23/24 at 1417, Intra-Op 1346 (New Bag - Provider: Prerna Caruso MD) 0821 (Infusion Stop Time - Provider: Gabbie Montana RN) documented in this encounter Care Teams Supervisor Plastics Relationship Specialty Start Date End Date Jeanne Vargas MD [address] [place] [address] PCP - General INTERNAL MEDICINE 09/23/24 Denis Blunt MD [address] [address] CARDIOVASCULAR DISEASE 09/16/24 documented as of this encounter
--- OUTSIDE RECORDS SUMMARY | 2024-10-08 03:33 | XMS_ITS | Encounter Summary ---
Author Organization [facility] Address [facility]. [place], [place] [address] [place] [address] Care Team Providers Care Online Merchandising Manager Name Role Phone Denis Blunt MD Unavailable [phone] Kyle Hendricks MD Primary Care Provider [phone] Encounter Details Date Type Department Care Team (Latest Contact Info) Description 09/23/2024 Travel Social History Tobacco Use Types Packs/Day Years Used Date Smoking Tobacco: Former Cigarettes Smokeless Tobacco: Never Comments:Quit smoking 1975 Alcohol Use Standard Drinks/Week Comments Not Currently 0 (1 standard drink = 0.6 oz pur e alcohol) rare beer [facility] Utilities Answer Date Recorded In the past 12 months has [facility] 2can, gas, oil, or water [employer] threatened to shut off services in your [...] any time in the past 12 m [facility], were you homeless or living in a skilled nursing (including now)? No 09/23/2024 Sex and Gender Information Value Date Recorded Sex Assigned at Not on file Legal Sex Male 7:25 PM CDT Gender Identity Not on file Sexual Orientation Not on file documented as of this encounter Functional Status * Question Answer Date of Assessment Author Status Do you have serious difficulty walking or climbing stairs? No 09/23/2024 4:35 PM Pia Mari RN Ac tive Do you have difficulty dressing or bathing? No 09/23/2024 4:35 PM Pia Mari R N Active Because of a physical, mental, or emotional condition, do you have difficulty doing errands alone such as visiting a doctor's office or shopping? No 09/23/2024 4:35 PM Pia Mari RN Act kandi * Are you deaf or do you have serious difficulty hearing Answer Date of Assessment Author Status No 09/23/2024 4:35 PM Pia Mari RN Active * Are you blind or do you have serious difficulty seeing, even when wearing glasses? Answer Date of Assessment Author Status No 09/23/2024 4:35 PM Pia Mari RN Active * Do you have serious difficulty walking or climbing stairs? Answer Date of Assessment Author Status No 09/23/2024 4:35 PM Pia Mari RN Active * Do you have difficulty dressing or bathing? Answer Date of Assessment Author Status No 09/23/2024 4:35 PM Pia Mari RN Active * Because of a physical, mental, or emotional condition, do you have difficulty doing errands alone such as visiting a doctor's office or shopping? Answer Date of Assessment Author Status No 09/23/2024 4:35 PM Pia Mari RN Active documented as of this encounter Mental Status * Question Answer Entry Date Author Status Because of a physical, mental, or emotional condition, do you have serious difficulty concentrating, remembering, or making decisions? No 09/23/2024 4:35 PM Pia Mari R N Active * Because of a physical, mental, or emotional condition, do you have serious difficulty concentrating, remembering, or making decisions? Answer Entry Date Author Status No 09/23/2024 4:35 PM Pia Mari RN Active documented in this encounter Plan of Treatment Not on file documented as of this encounter Visit Diagnoses Not on filedocumented in this encounter Care Teams Online Merchandising Manager Relationship Specialty Start Date End Date Kyle Hendricks MD [address] [place] [address] PCP - General INTERNAL MEDICINE 09/23/24 Denis Blunt MD [address] [facility] [address] [place] [address] CARDIOVASCULAR DISEASE 09/16/24 documented as of this encounter
--- OUTSIDE RECORDS SUMMARY | 2024-10-08 03:33 | XMS_ITS | Encounter Summary ---
Author Organization [facility] Address [address] [place] [address]. [place], [place] [id number] [place] [address] Care Team Providers Care X Ray Nurse Name Role Phone Denis Blunt MD Unavailable [phone] Encounter Details Date Type Department Care Team (Latest Contact Info) Description 09/16/2024 Travel Social History Tobacco Use Types Packs/Day Years Used Date Smoking Tobacco: Former Cigarettes Smokeless Tobacco: Never Comments:Quit smoking 1976 Alcohol Use Standard Drinks/Week Comments Not Currently 0 (1 standard drink = 0.6 oz pur e alcohol) rare beer Sex and Gender Information Value Date Recorded Sex Assigned at Not on file Legal Sex Male 7:25 PM CDT Gender Identity Not on file Sexual Orientation Not on file documented as of this encounter Plan of Treatment Not on file documented as of this encounter Visit Diagnoses Not on filedocumented in this encounter Care Teams X Ray Nurse Relationship Specialty Start Date End Date Denis Blunt MD [address] [place] [address] CARDIOVASCULAR DISEASE 09/16/24 documented as of this encounter
--- OUTSIDE RECORDS SUMMARY | 2024-10-08 03:33 | XMS_ITS | Encounter Summary ---
Author Organization [facility] Address [address] [place] [address]. [place] [address] [place] [address] Care Team Providers Care Pulping Machine Operator Name Role Phone Denis Blunt MD Unavailable [phone] Kyle Hendricks MD Primary Care Provider [phone] Reason for Visit * Auth/Cert (Routine) Specialty Diagnoses / Procedures Referred By Contac t Referred To Contact Diagnoses BENIGN PROSTATIC HYPERTROPHY WITH LOWER URINARY TRACT SYMPTOMS, URINARY RETENTION N40.1, R33.9, Z95.1, Z79.0 Procedures LASER ENUCLEATION PROSTATE W MORCELLATION HOLEP 111GRAMS HOLMIUM LASER ENUCLEATION OF PROSTATE Gregory Caruso MD [address] [facility] [place] [address] Phone: tel: fax: Referral ID Status Reason Start Date Expiration Date Visits Re quested Visits Authorized [id number] 1 1 Encounter Details Date Type Department Care Team (Late st Contact Info) Description 09/23/2024 12:41 PM CAMPGROUND ATTENDANT Anesthesia Event [facility] [place] [address] Mihir Clinton MD [address] [facility] [id number] [place] [phone] -[phone] (Work) Larissa Loera, PROFESSIONAL CASTER [address] [place] [address] Anesthesia Record Procedure Summary Procedure Name Responsible Anesthesiologist Anesthesia Start Time Anesthesia Stop Time HOLEP 111GRAMS HOLMIUM LASER ENUCLEATION OF PROSTATE (Prostate) Mihir Clinton MD 09/23/24 1241 09/23/24 1424 Events Date Time Event Comment 09/23/2024 1053 1053 AN Anesthesia Prepped 1241 An Start Patient ID and consent checked and patient reassessed. 1241 An Start Data 1243 Preoxygenation 1244 An Induction The patient was reevaluated immediately before moderate or deep sedation use and before anesthesia induction. 1246 An Intubation 1249 Anesthesia Ready 1410 An Emergence 1413 An Extubation 1415 Face Mask Applied 1417 an stop data 1424 Post Anesthetic Care Handoff I completed my handoff to the receiving nurse during which we: 1. Identified the patient 2. Identified the responsible provider 3. Reviewed the pertinent medical history 4. Discussed the surgical course 5. Reviewed intra-op anesthesia management and issues during anesthesia 6. Set expectations for post-procedure period 7. Allowed opportunity for questions and acknowledgement of understanding. 1424 An Stop Meds Name Total rocuronium (ZEMURON) 50 mg/5 mL injectio n 70 mg fentaNYL (SUBLIMAZE) 100 mcg/2 mL inject ion 75 mcg cefTRIAXone (ROCEPHIN) 2 g in sodium chl oride 0.9 % 50 mL IVPB 2 g lidocaine (PF) (XYLOCAINE) 2% injection 100 mg esmolol 10 mg/mL injection 30 mg propofol (DIPRIVAN) 200 mg/20 mL injecti on 160 mg succinylcholine (ANECTINE) 20 mg/mL inje ction 140 mg phenylephrine (BISHNU-SYNEPHRINE) injection 300 mcg dexamethasone (DECADRON) 4 mg/mL injecti on 8 mg glycopyrrolate (ROBINUL) 0.2 mg/mL injec tion 0.2 mg ondansetron (ZOFRAN) 4 mg/2 mL injection 4 mg sugammadex (BRIDION) 200 mg/2 mL injecti on 200 mg lactated ringers infusion 800 mL * Agents Name O2 Air Inspired Sevoflurane Sevoflurane Ancillary O2 * Blood No blood administrations on file. Lines, Drains, and Airways Type Details Placement Removal Peripheral IV Placement Date: 09/07 04/30; Placement Time: 1055; Size: 18 G; Orientation: Left, Posterior; Location: Forearm; Site Prep: Chlorhexidine; Local Anesthetic: None; Insertion attempts: 1; Ultrasound-guided Placement?: No; Patient Tolerance: Tolerated well; Removal Date: 09/25/24; Removal Time: 1540; Removal Reason: Patient Discharged 09/23/24 1055 by Ce Galloway RN 09/25/24 1540 by Boy Solitario RN ETT Placement Date: 09/07 04/30; Placement Time: 1249; Size (mm) : 8; Endotracheal: Oral; Blade Type: MAC 4; Placement Method: Direct Laryngoscopy (blade type in comment), Modified Rapid Sequence Induction; View Grade: 1; Viewable Anatomy: Epiglottis, Arytenoid, Vocal cords; Insertion Attempts: 1; Placement Verified By: Capnography, Auscultation, Chest Rise; Placed By: SCRUM PRODUCT OWNER; Extubation Assessment: Suctioned, Tolerated well, Atraumatic, Able to swallow, Other (comment), Patient spontaneously breathing (Coughing); Removal Date: 09/23/24; Removal Time: 1413; Removal Person: S[employer] PRODUCT OWNER; Removal Reason: End of Case 09/23/24 1249 by Andre Mccollum CRNA 09/23/24 1413 by Silvano Sheridan CRNA Hicks Catheter 09/23/24; 1349; No; Urologic Surgical intervention - Bladder, Prostate, SUPPLY TECHNICIAN procedures; 1; Hand hygiene performed, Hicks care post catheter insertion, Anchoring device applied, Sterile gloves, drape and lubricant used, Drainage bag secured below level of bladder, Closed system maintained, Catheter inserted using aseptic technique, Site cleansed with sterile antiseptic; Stat lock; Triple-lumen; 22 Fr.; Per Order 09/23/24 1349 by Stephany Jewell RN 09/25/24 1400 by Boy Solitario RN documented in this encounter Social History Tobacco Use Types Packs/Day Years Used Date Smoking Tobacco: Former Cigarettes Smokeless Tobacco: Never Comments:Quit smoking 1976 Alcohol Use Standard Drinks/Week Comments Not Currently 0 (1 standard drink = 0.6 oz pur e alcohol) rare beer [facility] Utilities Answer Date Recorded In the past 12 months has th e electric, gas, oil, or water company threatened to shut off services in your [...] any time in the past 12 m [facility], were you homeless or living in a [facility] (including now)? No 09/23/2024 Sex and Gender Information Value Date Recorded Sex Assigned at Not on file Legal Sex Male 7:25 PM CDT Gender Identity Not on file Sexual Orientation Not on file documented as of this encounter Functional Status documented as of this encounter Mental Status [...] Mari RN Active documented in this encounter OR Notes * Anesthesia Postprocedure Evaluation - Brenda Zimmerman CRNA - 09/24/2024 11:48 AM CST Anesthesia Post-op Note Wiliam Sidhu Balwinder Procedure(s): HOLEP 111GRAMS HOLMIUM LASER ENUCLEATION OF PROSTATE (Prostate) Anesthesia type: general Vitals: 09/24/24 0837 BP: (!) 147/89 Vitals: 09/24/24 0837 Pulse: 69 Vitals: 09/24/24 0400 Resp: 14 Vitals: 09/24/24 0837 Temp: 36.4 ??C Vitals: 09/24/24 0837 SpO2: 97% Patient Location: Inpatient Unit Level of Consciousness: awake, alert and oriented Pain Management: adequate analgesia Airway Patency: patent Respiratory Status: acceptable Cardiovascular Status: acceptable Post-Op Nausea: none Postoperative Hydration: euvolemic There were no known notable events for this encounter. GROUND ATTENDANT * Anesthesia Postprocedure Evaluation - Mihir Clinton MD - 09/23/2024 2:30 PM CST Anesthesia Post-op Note Wiliam Sidhu Balwinder Procedure(s): HOLEP 111GRAMS HOLMIUM LASER ENUCLEATION OF PROSTATE (Prostate) Anesthesia type: general Vitals: 09/23/24 1419 BP: (!) 152/95 Vitals: 09/23/24 1419 Pulse: (!) 58 Vitals: 09/23/24 1419 Resp: 8 Vitals: 09/23/24 1419 Temp: 36.1 ??C Vitals: 09/23/24 1419 SpO2: 100% Patient Location: PACU Level of Consciousness: awake, oriented and sedated Pain Management: adequate analgesia Airway Patency: patent Respiratory Status: spontaneous ventilation and unassisted Cardiovascular Status: hemodynamically stable Post-Op Nausea: none Postoperative Hydration: euvolemic No notable events documented. GROUND ATTENDANT * Anesthesia Preprocedure Evaluation - Mihir Clinton MD - 09/23/2024 10:49 AM CST Anesthesia ROS/MED History Reviewed: Patient summary , Nursing notes , ECG, Family history anesthesia, Anesthesia history , Medications , Labs , Images/Studies Pre-Anesthetic State: alert, awake and responds appropriately Pulmonary Cardiovascular (+) hypertension, CAD, (CABG), CHF, arrhythmia, (A-fib), (Paroxysmal), hyperlipidemia ROS comment: Echo 2023 Ejection fraction is [...] the right atrium suggestive of left-sided pressure overload. Neuro/Psych Substance Use GI/Hepatic/Renal (+) renal disease, (CRI) Endo/Other (+) cancer GENERAL COMMENTS -- Penicillins -- Hives Last Fluid Intake Date: 09/23/24 Last Fluid Intake Time: 0000 Last Solid Intake Date: 09/23/24 Last Solid Intake Time: 0000 Past Medical History: No date: CAD (coronary artery disease) No date: CHF (congestive heart failure) ([facility]/HCC) No date: CKD (chronic kidney disease), symptom management only, stage 3 (moderate) ([facility] HHS/HCC) No date: CLL (chronic lymphocytic leukemia) ([facility] HHS/HCC) No date: Enlarged prostate No date: Hypertension No date: Ischemic cardiomyopathy No date: Kidney stones No date: Mixed hyperlipidemia No date: Paroxysmal atrial fibrillation ([facility]) Past Surgical History: 03/14/2024: CORONARY ARTERY BYPASS GRAFT Comment: x4 - VILLALTA-LAD, QRP-IC-Kyqcl PLB, SVG-PDA, JOYCE clip No date: LITHOTRIPSY NPO Status: Last Fluid Intake Date: 09/23/24 Last Fluid Intake Time: 0000 Last Solid Intake Date: 09/23/24 Last Solid Intake Time: 0000 Physical Evaluation Airway Mallampati: II TM Distance: >3 FB Neck ROM: normal Dental Pulmonary Pulmonary exam normal Breath sounds clear to auscultation Cardiovascular Rhythm: regular Rate: normal Cardiovascular exam normal Other findings: Blood pressure (!) 158/84, pulse (!) 54, resp. rate 16, height 1.905 m (6' 3 ), weight 87.7 kg (193 lb 5.5 oz), SpO2 96%. No results for input(s): WBC , RBC , HGB , HCT , PLT , NA , K , CL , CO2 , AGAP , BUN , CR , BUNCREATININ , GFRNON , GFR , GLU , CA in the last 72 hours. STOP-Bang Assessment: Do you snore loudly?: 1 Do you often feel tired or fatigued after your sleep?: 0 Has anyone ever observed you stop breathing in your sleep?: 0 Do you have or are you being treated for high blood pressure?: 1 Recent BMI (Calculated): 23.9 Is BMI greater than 35 kg/m2?: 0=No Age older than 50 years old?: 1=Yes Is your neck circumference greater than 17 inches (Male) or 16 inches (Female)?: 0 Gender - Male: 1=Yes STOP-Bang Total Score: 4 Anesthesia Plan ASA 3 Intravenous Induction Anesthesia type: general Plan for Airway: ETT and LMA Plan for Post-op Pain Plan: oral pain medication, IV analgesics and as per surgeon Discussed potential risks of General Anesthesia including but not limited to corneal abrasion, visual impairment or visual loss, mouth injury, dental damage, sore throat, hoarseness, esophageal injury, awareness under anesthesia, nerve injury due to positioning, aspiration, pneumonia, stroke, cardiac event, adverse drug reactions and . Informed Consent Anesthetic plan and risks discussed with patient of whom consent was obtained. . GROUND ATTENDANT GROUND ATTENDANT documented in this encounter Plan of Treatment Not on file documented as of this encounter Visit Diagnoses Not on filedocumented in this encounter Administered Medications Inactive Administered Medications - up to 3 most recent administrations Medication Order MAR Action Action Date Dose Rate Site cefTRIAXone (ROCEPHIN) 2 g in sodium chloride 0.9 % 50 mL IVPB 2 g, Intravenous, at 100 mL/hr, orchid transplanter to O.R., 1 dose, First dose on Sun09/23/24 at 1015, Pre-OpIndications:BPH with obstruction/lower urinary tract symptoms,Retention of urine, unspecified,Postsurgical aortocoronary bypass status,oracle endeca consultant (current) use of anticoagulants New Bag 09/23/2024 12:49 PM CAMPGROUND ATTENDANT 2 g dexamethasone (DECADRON) injection Intravenous, PRN, Starting on Sun09/23/24 at 1301, Until Sun09/23/24 at 1425, Anesthesia Intra-Op Given 09/23/2024 1:01 PM CAMPGROUND ATTENDANT 8 mg esmolol (BREVIBLOC) injection Intravenous, PRN, Starting on Sun09/23/24 at 1244, Until Sun09/23/24 at 1425, Anesthesia Intra-Op Given 09/23/2024 12:44 PM CAMPGROUND ATTENDANT 30 mg fentaNYL (SUBLIMAZE) injection Intravenous, PRN, Starting on Sun09/23/24 at 1254, Until Sun09/23/24 at 1425, Anesthesia Intra-Op Given 09/23/2024 1:13 PM CAMPGROUND ATTENDANT 25 mcg Given 09/23/2024 1:03 PM CAMPGROUND ATTENDANT 25 mcg Given 09/23/2024 12:54 PM CAMPGROUND ATTENDANT 25 mcg glycopyrrolate (ROBINUL) injection Intravenous, PRN, Starting on Sun09/23/24 at 1335, Until Sun09/23/24 at 1425, Anesthesia Intra-Op Given 09/23/2024 1:35 PM CAMPGROUND ATTENDANT 0.2 mg lactated ringers infusion at 10 mL/hr, Intravenous, Continuous, Starting on Sun09/23/24 at 1115, Until Sun09/23/24 at 1425, Infuse at TKO rate, Pre-Op Continued by Anesthesia 09/23/2024 12:41 PM CAMPGROUND ATTENDANT 10 mL/hr New Bag 09/23/2024 10:55 AM CAMPGROUND ATTENDANT 10 mL/hr lidocaine (PF) (XYLOCAINE) 2 % injection Intravenous, PRN, Starting on Sun09/23/24 at 1244, Until Sun09/23/24 at 1425, Anesthesia Intra-Op Given 09/23/2024 12:44 PM CAMPGROUND ATTENDANT 100 mg ondansetron (ZOFRAN) injection Intravenous, PRN, Starting on Sun09/23/24 at 1355, Until Sun09/23/24 at 1425, Anesthesia Intra-Op Given 09/23/2024 1:55 PM CAMPGROUND ATTENDANT 4 mg phenylephrine (BISHNU-SYNEPHRINE) injection Intravenous, PRN, Starting on Sun09/23/24 at 1245, Until Sun09/23/24 at 1425, Anesthesia Intra-Op Given 09/23/2024 1:53 PM CAMPGROUND ATTENDANT 100 mcg Given 09/23/2024 1:38 PM CAMPGROUND ATTENDANT 100 mcg Given 09/23/2024 12:45 PM CAMPGROUND ATTENDANT 100 mcg propofol (DIPRIVAN) IV bolus Intravenous, PRN, Starting on Sun09/23/24 at 1245, Until Sun09/23/24 at 1425, Anesthesia Intra-Op Given 09/23/2024 12:45 PM CAMPGROUND ATTENDANT 160 mg rocuronium (ZEMURON) injection Intravenous, PRN, Starting on Sun09/23/24 at 1253, Until Sun09/23/24 at 1425, Anesthesia Intra-Op Given 09/23/2024 1:34 PM CAMPGROUND ATTENDANT 20 mg Given 09/23/2024 12:53 PM CAMPGROUND ATTENDANT 50 mg succinylcholine (ANECTINE) injection Intravenous, PRN, Starting on Sun09/23/24 at 1245, Until Sun09/23/24 at 1425, Anesthesia Intra-Op Given 09/23/2024 12:45 PM CAMPGROUND ATTENDANT 140 mg sugammadex (BRIDION) injection Intravenous, PRN, Starting on Sun09/23/24 at 1404, Until Sun09/23/24 at 1425, Anesthesia Intra-Op Given 09/23/2024 2:04 PM CAMPGROUND ATTENDANT 200 mg documented in this encounter Care Teams Pulping Machine Operator Relationship Specialty Start Date End Date Kyle Hendricks MD [address] [place] [address] PCP - General INTERNAL MEDICINE 09/23/24 Denis Blunt MD [address] [facility] [address] [place] [address] CARDIOVASCULAR DISEASE 09/16/24 documented as of this encounter
--- OUTSIDE RECORDS SUMMARY | 2024-10-08 03:34 | XMS_ITS | Clinical Summary ---
Author Organization Unknown Care Team Providers Care Special Education Professor Name Role Phone DAVID MENDES, SOLA Unavailable Unavailable [place] PHYSICAL THERAPIST, WILLOW Moffettabl e Unavailable [place] CATTLE FARMER, NICHOLAS Unavail able Unavailable [facility] REGISTERED NURSE, RADHA Unavailable Unavailable Payers Payer Name Policy Type Policy Number Effective Date Expira tion Date MEDICARE [place] - EPISODIC [id number] Problems Condition Name Condition Details Condition Category Status Onset Date Resolution Date Last Treatment Date Treating Clinician Comments ENCNTR FOR SURGICAL AFTCR FOLLOWING SURGERY ON THE CIRC SYS Active 14 00:00: 00 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 10-08 00:00: 00 ATHSCL HEART DISEASE OF [place] CORONARY ARTERY W/O ANG PCTRS Active 10-08 00:00: 00 NON-ST ELEVATION (NSTEMI) MYOCARDIAL INFARCTION Active 10-08 00:00: 00 OTHER ACUTE POSTPROCEDUR AL PAIN Active 10-08 00:00: 00 HYPERLIPIDEM IA, UNSPECIFIED Active 10-08 00:00: 00 UNSPECIFIED ATRIAL FIBRILLATION Active 10-08 00:00: 00 HYPERTENSIVE CHRONIC KIDNEY DISEASE W STG 1-4/UNSP CHR KDNY Active 10-08 00:00: 00 CHRONIC KIDNEY DISEASE, UNSPECIFIED Active 10-08 00:00: 00 ANEMIA IN CHRONIC KIDNEY DISEASE Active 10-08 00:00: 00 GASTRO-ESOPH AGEAL REFLUX DISEASE WITHOUT ESOPHAGITIS Active 10-08 00:00: 00 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 Active 10-08 00:00: 00 BENIGN PROSTATIC HYPERPLASIA WITHOUT LOWER URINRY TRACT SYMP Active 10-08 00:00: 00 HYPERGLYCEMI A, UNSPECIFIED Active 10-08 00:00: 00 PERSONAL HISTORY OF NICOTINE DEPENDENCE Active 10-08 00:00: 00 RN ENDOCRINOLOGY (CURRENT) USE OF ASPIRIN Active 10-08 00:00: 00 HISTORY OF FALLING Active 10-08 00:00: 00 Allergies, Adverse Reactions, Alerts Allergy Name Allergy Type Status Severity Reaction(s) Onset Date Inactive Date Treating Clinician Comments PENICILLINS Propensity to adverse reactions Active 03-22 15:16: 15 Medications Ordered Medication Name Filled Medication Name Start Date Stop Date Current Medication? Ordering Clinician Indication Dosage Frequency Signature (SIG) Comments Components amiodarone 200 mg tablet 03-24 00:00: 00 Yes [id number] AFIB 1 tablet ONCE DAILY 1 tablet ONCE DAILY (route: oral) Med Classific ation: Cardiovas cular Therapy Agents aspirin 81 mg chewable tablet 03-24 00:00: 00 Yes [id number] ANTIPLATLET 1 tablet ONCE DAILY 1 tablet ONCE DAILY (route: oral) Med Classific ation: Hematolog ical Agents Co Q-10 30 mg capsule 03-24 00:00: 00 Yes [id number] SUPPLEMENT 1 capsule ONCE DAILY 1 capsule ONCE DAILY (route: oral) Med Classific ation: Alternati ve Therapy finasteride 5 mg tablet 03-24 00:00: 00 Yes [id number] URINARY RETENTION 1 tablet AT BEDTIME 1 tablet AT BEDTIME (route: oral) Med Classific ation: Genitouri nary Therapy Flomax 0.4 mg capsule 03-24 00:00: 00 Yes [id number] BPH 1 capsule ONCE DAILY 1 capsule ONCE DAILY (route: oral) Med Classific ation: Genitouri nary Therapy Lasix 20 mg tablet 03-24 00:00: 00 03-31 23:59 :00 No [id number] DIURETIC 1 tablet ONCE DAILY 1 tablet ONCE DAILY (route: oral) Med Classific ation: Cardiovas cular Therapy Agents metoprolol tartrate 25 mg tablet 03-24 00:00: 00 Yes [id number] HTN 1 tablet AT BEDTIME 1 tablet AT BEDTIME (route: oral) Med Classific ation: Cardiovas cular Therapy Agents Miralax 17 gram oral powder packet 03-24 00:00: 00 Yes [id number] CONSTIPATIO N 1 packet ONCE DAILY 1 packet ONCE DAILY (route: oral) Med Classific ation: Gastroint estinal Therapy Agents pantoprazol e 40 mg tablet,cecilia yed release 03-24 00:00: 00 Yes [id number] GERD 1 tablet AT BEDTIME 1 tablet AT BEDTIME (route: oral) Med Classific ation: Gastroint estinal Therapy Agents potassium chloride ER 20 mEq tablet,exte nded release 03-24 00:00: 00 03-31 23:59 :00 No [id number] SUPPLEMENT 1 tablet ONCE DAILY 1 tablet ONCE DAILY (route: oral) Med Classific ation: Electroly te Balance-N utritiona l Products rosuvastati n 40 mg tablet 03-24 00:00: 00 Yes [id number] CHOLESTROLO L 1 tablet ONCE DAILY 1 tablet ONCE DAILY (route: oral) Med Classific ation: Cardiovas cular Therapy Agents Senna Lax 8.6 mg tablet 03-24 00:00: 00 Yes [id number] CONSTIPATIO N 1 tablet ONCE DAILY 1 tablet ONCE DAILY (route: oral) Med Classific ation: Gastroint estinal Therapy Agents Tylenol Extra Strength 500 mg tablet 03-24 00:00: 00 Yes [id number] PAIN 2 tablet 3 TIMES DAILY 2 tablet 3 TIMES DAILY (route: oral) Med Classific ation: Analgesic , Anti-infl ammatory or Antipyret ic Immunizations Ordered Immunization Name Filled Immunization Name Date Status Comments Refusal Reason COVID-19 MONOVALENT, MRNA 2023-11-08 00:00:00 INFLUENZA, TIV (INACTIVATED) 2023-08-08 00:00:00 PNEUMOCOCCAL (PPV), PPV 2022-03-08 00:00:00 Vital Signs Vital Name Observation Time Observation Value Commen ts Temperature 2024-04-22 23:25:00.000 97.3 [degF] Temperature 2024-04-14 12:08:00.000 97.4 [degF] Temperature 2024-04-07 12:18:00.000 97.7 [degF] Temperature 2024-03-31 12:19:00.000 97.2 [degF] Temperature 2024-03-28 13:19:00.000 97.9 [degF] Temperature 2024-03-28 12:26:00.000 97.5 [degF] Temperature 2024-03-24 12:32:00.000 97.6 [degF] BMI (%) 2024-03-24 12:32:00.000 25 kg/m2 Height 2024-03-24 12:32:00.000 75 [in_us] Pulse 2024-04-22 23:25:00.000 92 /min Pulse 2024-04-14 12:08:00.000 76 /min Pulse 2024-04-07 12:18:00.000 72 /min Pulse 2024-03-31 12:19:00.000 72 /min Pulse 2024-03-28 13:19:00.000 75 /min Pulse 2024-03-28 12:26:00.000 68 /min Pulse 2024-03-24 12:32:00.000 72 /min O2 Saturation (%) 2024-04-22 23:25:00.000 92 % O2 Saturation (%) 2024-04-14 12:08:00.000 97 % O2 Saturation (%) 2024-04-07 12:18:00.000 97 % O2 Saturation (%) 2024-03-31 12:19:00.000 98 % O2 Saturation (%) 2024-03-28 13:19:00.000 97 % O2 Saturation (%) 2024-03-28 12:26:00.000 91 % O2 Saturation (%) 2024-03-24 12:32:00.000 96 % Respirations 2024-04-22 23:25:00.000 18 /min Respirations 2024-04-14 12:08:00.000 18 /min Respirations 2024-04-07 12:18:00.000 18 /min Respirations 2024-03-31 12:19:00.000 18 /min Respirations 2024-03-28 13:19:00.000 18 /min Respirations 2024-03-28 12:26:00.000 18 /min Respirations 2024-03-24 12:32:00.000 18 /min Weight (lbs) 2024-04-22 12:34:00.000 202 [lb_av] Weight (lbs) 2024-04-14 12:08:00.000 205 [lb_av] Weight (lbs) 2024-04-07 12:18:00.000 202 [lb_av] Weight (lbs) 2024-03-31 12:19:00.000 205 [lb_av] Weight (lbs) 2024-03-28 12:26:00.000 206 [lb_av] Weight (lbs) 2024-03-24 12:32:00.000 207 [lb_av] Systolic Blood Pressure 2024-04-22 23:25:00.000 136 mm [Hg] Systolic Blood Pressure 2024-04-14 12:08:00.000 140 mm [Hg] Systolic Blood Pressure 2024-04-07 12:18:00.000 138 mm [Hg] Systolic Blood Pressure 2024-03-31 12:19:00.000 122 mm [Hg] Systolic Blood Pressure 2024-03-28 13:19:00.000 128 mm [Hg] Systolic Blood Pressure 2024-03-28 12:26:00.000 132 mm [Hg] Systolic Blood Pressure 2024-03-24 12:32:00.000 130 mm [Hg] Diastolic Blood Pressure 2024-04-22 23:25:00.000 84 mm [Hg] Diastolic Blood Pressure 2024-04-14 12:08:00.000 88 mm [Hg] Diastolic Blood Pressure 2024-04-07 12:18:00.000 76 mm [Hg] Diastolic Blood Pressure 2024-03-31 12:19:00.000 68 mm [Hg] Diastolic Blood Pressure 2024-03-28 13:19:00.000 72 mm [Hg] Diastolic Blood Pressure 2024-03-28 12:26:00.000 78 mm [Hg] Diastolic Blood Pressure 2024-03-24 12:32:00.000 72 mm [Hg] Plan of Treatment Planned Activity Planned Date Details Comments Future Scheduled Test HOME HEALT H NURSE TO INSTRUCT PATIENT/CAREGIVER AND ADMINISTER WOUND CARE TO MIDLINE CHEST INCISION AND LEFT THIGH INCISION CLOSED INCISION / SUTURE LINE: CLEANSE WITH NON-CYTOTOXIC WOUND CLEANSING AGENT AND OR SOAP AND PAT DRY WITH GAUZE ANDLEAVE REDD. DISCONTINUE WHEN WOUND IS HEALED. MAY ADD 2 PRN VISITS PER MONTH FOR WOUND COMPLICATIONS SUCH REDNESS, INCREASE IN DRAINAGE AND OR PAIN OR COMPROMISED DRESSING. CAREGIVER MAY PERFORM DRESSING CHANGE IN ABSENCE OF HOME HEALTH STAFF ONCE ABLE TO ACCURATELY RETURN DEMONSTRATE. PHYSICAL THERAPIST MAY ASSIST WITH WOUND CARE [code = HOME HEALTH NURSE TO INSTRUCT PATIENT/CAREGIVER AND ADMINISTER WOUND CARE TO MIDLINE CHEST INCISION AND LEFT THIGH INCISION CLOSED INCISION / SUTURE LINE: CLEANSE WITH NON-CYTOTOXIC WOUND CLEANSING AGENT AND OR SOAP AND PAT DRY WITH GAUZE ANDLEAVE EDITOR SOUND. DISCONTINUE WHEN WOUND IS HEALED. MAY ADD 2 PRN VISITS PER MONTH FOR WOUND COMPLICATIONS SUCH REDNESS, INCREASE IN DRAINAGE AND OR PAIN OR COMPROMISED DRESSING. CAREGIVER MAY PERFORM DRESSING CHANGE IN ABSENCE OF HOME HEALTH STAFF ONCE ABLE TO ACCURATELY RETURN DEMONSTRATE. PHYSICAL THERAPIST MAY ASSIST WITH WOUND CARE] Future Scheduled Test THE CER TIFYING PHYSICIAN, ASSOCIATED PHYSICIAN, NPP OR PA WITHIN THE SAME GROUP MAY APPROVE AND SIGN THE ORDER (ON ANY PAGE) ATTESTING THAT THE COMPREHENSIVE OUTCOME ASSESSMENTS, EVALUATIONS, AND HOME HEALTH CERTIFICATION PLANS SUPPORT HOMEBOUND STATUS. HOME HEALTH WEB-PORTAL DOCUMENTATION ACCESSED BY THE PHYSICIAN MUST BE INCORPORATED INTO THE MEDICAL RECORD TO CORROBORATE THE PHYSICIAN, NPP, OR PAS F2F ENCOUNTER TO SUPPORT ELIGIBILITY FOR HOME HEALTH SERVICES. [code = THE CERTIFYING PHYSICIAN, ASSOCIATED PHYSICIAN, NPP OR PA WITHIN THE SAME GROUP MAY APPROVE AND SIGN THE ORDER (ON ANY PAGE) ATTESTING THAT THE COMPREHENSIVE OUTCOME ASSESSMENTS, EVALUATIONS, AND HOME HEALTH CERTIFICATION PLANS SUPPORT HOMEBOUND STATUS. HOME HEALTH WEB-PORTAL DOCUMENTATION ACCESSED BY THE PHYSICIAN MUST BE INCORPORATED INTO THE MEDICAL RECORD TO CORROBORATE THE PHYSICIAN, NPP, OR PAS F2F ENCOUNTER TO SUPPORT ELIGIBILITY FOR HOME HEALTH SERVICES.] Future Scheduled Test EACH ORDER ED IN-HOME OR TELEHEALTH VISIT, THE SKILLED NURSE WILL CONDUCT A COMPREHENSIVE ASSESSMENT INCLUDING VITAL SIGNS, PAIN, SAFETY, MENTAL/COGNITIVE/PSYCHOSOCIAL STATUS, MED MANAGEMENT, NUTRITION, SKIN INTEGRITY, PRESSURE ULCER PREVENTION, AND PATIENT/CAREGIVER ABILITY TO SUPPORT ORDERED CARE. SKILLED NURSE WILL INSTRUCT ON DISEASE PROCESS, MED MGMT., FALL PREVENTION AND SAFETY, INFECTION CONTROL AND PREVENTION, WARNING SIGNS, ADDRESS RESULTS OUTSIDE OF ORDERED PARAMETERS LISTED ON CARE PLAN, AND COORDINATE DISCHARGE WITH THE TREATING PROVIDER. MAY ACCEPT ORDERS FROM THE FOLLOWING PROVIDER(S) WHO WILL BE CONSULTING ON THE CERTIFIED CARE PLAN: DR VARGAS AND DR SOLA HERNANDEZ. [code = EACH ORDERED IN-HOME OR TELEHEALTH VISIT, THE SKILLED NURSE WILL CONDUCT A COMPREHENSIVE ASSESSMENT INCLUDING VITAL SIGNS, PAIN, SAFETY, MENTAL/COGNITIVE/PSYCHOSOCIAL STATUS, MED MANAGEMENT, NUTRITION, SKIN INTEGRITY, PRESSURE ULCER PREVENTION, AND PATIENT/CAREGIVER ABILITY TO SUPPORT ORDERED CARE. SKILLED NURSE WILL INSTRUCT ON DISEASE PROCESS, MED MGMT., FALL PREVENTION AND SAFETY, INFECTION CONTROL AND PREVENTION, WARNING SIGNS, ADDRESS RESULTS OUTSIDE OF ORDERED PARAMETERS LISTED ON CARE PLAN, AND COORDINATE DISCHARGE WITH THE TREATING PROVIDER. MAY ACCEPT ORDERS FROM THE FOLLOWING PROVIDER(S) WHO WILL BE CONSULTING ON THE CERTIFIED CARE PLAN: DR VARGAS AND DR SOLA HERNANDEZ.] Future Scheduled Test HOME HEALT NURSE WILL TEACH THE PATIENT/CAREGIVER ABOUT WHAT IS AN ARRHYTHMIA, HOW TO CHECK OWN PULSE AND TRACK, SIGNS AND SYMPTOMS OF WHEN ARRYTHMIA OCCURS, AND WHAT WARNING SIGNS TO CALL THE AGENCY, PHYSICIAN OR 911. [code = HOME HEALTH NURSE WILL TEACH THE PATIENT/CAREGIVER ABOUT WHAT IS AN ARRHYTHMIA, HOW TO CHECK OWN PULSE AND TRACK, SIGNS AND SYMPTOMS OF WHEN ARRYTHMIA OCCURS, AND WHAT WARNING SIGNS TO CALL THE AGENCY, PHYSICIAN OR 911.] Future Scheduled Test HOME [facility] NURSE WILL TEACH PATIENT/CAREGIVER ABOUT CABG, HOW TO TAKE OWN PULSE AND BP TO TRACK ON A LOG, WHAT STRATEGIES TO USE TO AVOID RE-HOSPITALIZATIONS, AND WARNING SIGNS TO CALL THE AGENCY, PHYSICIAN, OR 911. [code = HOME HEALTH NURSE WILL TEACH PATIENT/CAREGIVER ABOUT CABG, HOW TO TAKE OWN PULSE AND BP TO TRACK ON A LOG, WHAT STRATEGIES TO USE TO AVOID RE-HOSPITALIZATIONS, AND WARNING SIGNS TO CALL THE AGENCY, PHYSICIAN, OR 911.] Future Scheduled Test HOME HEALT NURSE WILL TEACH PATIENT/CAREGIVER ABOUT CARE FOR THE INCISIONS, (10 LBS.) WEIGHT RESTRICTIONS, DRIVING RESTRICTIONS, HOW TO WEIGH SELF DAILY AND MANAGE RESULTS ON A LOG, AND WARNING SIGNS ON WHEN TO CALL THE AGENCY, PHYSICIAN, OR 911. [code = HOME HEALTH NURSE WILL TEACH PATIENT/CAREGIVER ABOUT CARE FOR THE INCISIONS, (10 LBS.) WEIGHT RESTRICTIONS, DRIVING RESTRICTIONS, HOW TO WEIGH SELF DAILY AND MANAGE RESULTS ON A LOG, AND WARNING SIGNS ON WHEN TO CALL THE AGENCY, PHYSICIAN, OR 911. ] Future Scheduled Test HOME HEALT NURSE WILL TEACH PATIENT/CAREGIVER ABOUT HEART FAILURE, EDEMA, AND HOW TO WEIGH DAILY AT THE SAME TIME EVERY MORNING AFTER URINATING AND BEFORE BREAKFAST. INSTRUCT PATIENT TO CHECK FOR 2-5LBS. OF WEIGHT GAIN CAUSED BY INCREASED FLUID AND CONTACT THE PHYSICIAN IF 2LBS WEIGHT GAIN IN 1 DAY OR 5LBS WEIGHT GAIN IN 1 WEEK. HOME HEALTH RN TO TEACH PATIENT ABOUT WARNING SIGNS TO CONTACT THE AGENCY, PHYSICIAN, OR 911. MAY ADD 2 PRN VISITS PER MONTH FOR SIGNS/SYMPTOMS OF EXACERBATION SUCH INCREASED EDEMA, WEIGHT GAIN, SHORTNESS OF BREATH, OR FATIGUE. [code = HOME HEALTH NURSE WILL TEACH PATIENT/CAREGIVER ABOUT HEART FAILURE, EDEMA, AND HOW TO WEIGH DAILY AT THE SAME TIME EVERY MORNING AFTER URINATING AND BEFORE BREAKFAST. INSTRUCT PATIENT TO CHECK FOR 2-5LBS. OF WEIGHT GAIN CAUSED BY INCREASED FLUID AND CONTACT THE PHYSICIAN IF 2LBS WEIGHT GAIN IN 1 DAY OR 5LBS WEIGHT GAIN IN 1 WEEK. HOME HEALTH RN TO TEACH PATIENT ABOUT WARNING SIGNS TO CONTACT THE AGENCY, PHYSICIAN, OR 911. MAY ADD 2 PRN VISITS PER MONTH FOR SIGNS/SYMPTOMS OF EXACERBATION SUCH INCREASED EDEMA, WEIGHT GAIN, SHORTNESS OF BREATH, OR FATIGUE.] Future Scheduled Test SKILLED NU RSE TO INSTRUCT PATIENT/CAREGIVER ON WHAT IS A MYOCARDIAL INFARCTION, HOW TO CHECK HIS/HER OWN BLOOD PRESSURE WITH A TRACKING LOG, ASPECTS OF HEART HEALTHY LIFESTYLE, SIGNS AND SYMPTOMS OF ANGINA, SYMPTOMATIC ARRHYTHMIA, DVT, PE, STROKE, AND WHEN TO CALL THE AGENCY AND PHYSICIAN. [code = SKILLED NURSE TO INSTRUCT PATIENT/CAREGIVER ON WHAT IS A MYOCARDIAL INFARCTION, HOW TO CHECK HIS/HER OWN BLOOD PRESSURE WITH A TRACKING LOG, ASPECTS OF HEART HEALTHY LIFESTYLE, SIGNS AND SYMPTOMS OF ANGINA, SYMPTOMATIC ARRHYTHMIA, DVT, PE, STROKE, AND WHEN TO CALL THE AGENCY AND PHYSICIAN.] Future Scheduled Test PHYSICAL T HERAPIST TO EVALUATE AND TREAT [code = PHYSICAL THERAPIST TO EVALUATE AND TREAT] Goal 2024-04-22 Patient Goal - T O INCREASE STRENGTH AND RETURN BACK TO MY NORMAL LIFE Goal Provider Goal - PATIENT/CAREGIVER WILL DEMONSTRATE APPROPRIATE INCISIONAL CARE. INCISION / SUTURE LINE IMPROVE EVIDENCED BY DECREASE IN SIZE / DRAINAGE OF WOUND, NO SIGNS AND SYMPTOMS OF INFECTION, DECREASED PAIN, HEALING IS PROGRESSING BY EOE. Goal Provider Goal - A PLAN OF CARE WILL BE ESTABLISHED THAT MEETS ALL PATIENT'S INTERMEDIATE NEEDS AND COUNTER SIGNED BY PHYSICIAN. Goal Provider Goal - PATIENT WILL BE FREE OF FALLS AND HOSPITALIZATIONS THROUGHOUT EPISODE OF CARE. PATIENT/CAREGIVER WILL UNDERSTAND AND ADHERE TO ORDERED DIET. PATIENT/CAREGIVER WILL INDEPENDENTLY MANAGE MEDICATIONS, UNDERSTAND ANY CHANGES, SIDE EFFECTS TO REPORT BY EOE. PATIENT WILL BE FREE OF INFECTION AND UNDERSTAND MEASURES OF PREVENTION. PATIENT/CAREGIVER WILL COLLABORATE WITH SKILLED NURSE TO DEVELOP POC AT SOC AND ON AN ONGOING BASIS UPDATES ARE NEEDED. UNDERSTAND PROGRESS MADE/DISCHARGE PLANNING. ADDITIONAL ORDERS WILL BE RECEIVED FROM ALTERNATE PHYSICIANS IN A TIMELY MANNER. Goal Provider Goal - BY THE END OF HOME HEALTH SERVICES, PATIENT/CAREGIVER WILL DEMONSTRATE HOW TO TAKE THEIR OWN PULSE AND VERBALIZE WHAT WARNING SIGNS TO CALL THE PHYSICIAN OR 911 BY THE END OF HOME HEALTH SERVICES. Goal Provider Goal - PATIENT/CAREGIVER WILL DEMONSTRATE HOW TO TAKE AND TRACK OWN PULSE AND BLOOD PRESSURE. PATIENT/CAREGIVER WILL VERBALIZE AN UNDERSTANDING OF THE CARDIAC PROCEDURE, WHAT POST-SURGERY STRATEGIES SHOULD BE FOLLOWED TO AVOID COMPLICATIONS, PROPER MD FOLLOW-UP, AND WARNING SIGNS TO CALL THE PHYSICIAN OR 911 BY THE END OF HOME HEALTH SERVICES. Goal Provider Goal - PATIENT/CAREGIVER WILL DEMONSTRATE PROPER CARE FOR INCISIONS, ADHERENCE TO DRIVING RESTRICTIONS, ADHERENCE OF ACTIVITY RESTRICTIONS, CONSISTENT MANAGEMENT OF DAILY WEIGHTS WITH USE OF A LOG TO TRACK RESULTS. PATIENT/CAREGIVER WILL VERBALIZE UNDERSTANDING OF WARNING SIGNS TO CALL PHYSICIAN OR 911 BY THE END OF HOME SERVICES. Goal Provider Goal - PATIENT/CAREGIVER WILL DEMONSTRATE AND ADHERE TO WEIGHING DAILY WITH THE USE OF TRACKING LOG. PATIENT WILL VERBALIZE WAYS TO MONITOR FLUID OVERLOAD FROM OWN QUALITY OF SLEEP, EDEMA, TIGHT-FITTING CLOTHES, QUALITY OF BREATHING, AND CHANGES IN FEELING MORE TIRED OR WEEK BY THE END OF HOME HEALTH SERVICES. Goal Provider Goal - PATIENT/CAREGIVER WILL INDEPENDENTLY DEMONSTRATE HOW TO CHECK HIS/HER BLOOD PRESSURE, VERBALIZE UNDERSTANDING OF LIFESTYLE CHANGES, AND UNDERSTAND WHEN TO CALL THE PHYSICIAN WITH REPORTABLE SIGNS OF COMPLICATIONS. Goal Provider Goal - Reason for Visit INDEPENDENT IN THE COMMUNITY Encounters Start Date/Time End Date/Time Encounter Type Admission Type Attending [facility] Care Department Encounter ID Discharge Date Discharge Status Discharge Condition Discharge Reason Percent Goals Met 2024-03-24 00:00:00 2024-04-22 00:00:00 Outpatient NEW ADMISSION RADHA ALDRICH [facility] [id number] 00:00:00 DISCHARGE TO HOME OR SELF CARE INDEPENDEN T IN THE COMMUNITY GOALS MET 100.00
--- OUTSIDE RECORDS SUMMARY | 2024-10-08 03:34 | XMS_ITS | Encounter Summary ---
Author Organization [facility] Address [address] [place] [address] Phone Care Team Providers Care Helmet Binder Name Role Phone Kyle Hendricks MD Primary Care Provider [phone] Williams Raymond MD Unavailable Reason for Referral * Radiology Services (Routine) - Closed Specialty Diagnoses / Procedures Referred By Diogo gray Referred To Contact Radiology Diagnoses Kidney stones Procedures XR ABDOMEN KUB FLAT PLATE Williams Raymond MD [address], [address] [address] Phone: tel: fax: Referral ID Status Reason Start Date Expiration Date Visits Re quested Visits Authorized [id number] Closed 06/01/2022 1 1 Reason for Visit * Radiology Services (Routine) - Closed Specialty Diagnoses / Procedures Referred By Diogo gray Referred To Contact Radiology Diagnoses Kidney stones Procedures XR ABDOMEN KUB FLAT PLATE Williams Raymond MD [address] [facility], [address] [address] Phone: tel: fax: Referral ID Status Reason Start Date Expiration Date Visits Re quested Visits Authorized [id number] Closed 06/01/2022 1 1 Encounter Details Date Type Department Care Team (Latest Contact Info) Description 06/01/2022 11:57 AM CDT - 06/01/2022 11:59 PM CDT Hospital Encounter [facility] Diagnostic Radiology [address] [place] [address] Williams Raymond MD [address], [address] [place] [address] Discharge Disposition: Discharged to home or Selfcare Social History Tobacco Use Types Packs/Day Years Used Date Smoking Tobacco: Former Cigarettes Q uit: 02/15/1976 Smokeless Tobacco: Never Alcohol Use Standard Drinks/Week Comments Yes 0 (1 standard drink = 0.6 oz pur e alcohol) occasional Sexually Active Control Partners Comments Not Currently Female Sex and Gender Information Value Date Recorded Sex Assigned at Not on file Legal Sex Male 3:23 PM CDT Gender Identity Not on file Sexual Orientation Not on file COVID-19 Exposure Response Date Recorded In the last 10 days, have yo u been in contact with someone who was confirmed or suspected to have Coronavirus/COVID-19? No / Unsure 06/01/2022 10:55 AM CDT documented as of this encounter Medications at Time of Discharge aspirin 325 MG Tablet Take 325 mg by mouth daily. finasteride (PROSCAR) 5 MG Tablet Take 5 mg by mouth daily. ketoconazole (NIZORAL) 2 % Shampoo 05/31/2022 Klor-Con M10 10 MEQ Tablet Controlled Release Take 10 mEq by mouth daily. 05/24/2022 losartan potassium-hydroch lorothiazide (HYZAAR) 100-25 MG Tablet Take 1 Tablet by mouth daily. metoprolol Succinate (TOPROL-XL) 25 MG TABLET SR 24 HR Take 25 mg by mouth daily. Misc Natural Products (FLEX-A-MIN JOINT FLEX PO) Take by mouth. NIFEdipine (NIFEDIAC CC PO) Take 60 mg by mouth. pantoprazole (PROTONIX) 40 MG Tablet Delayed Response Take 40 mg by mouth daily. pravastatin (PRAVACHOL) 20 MG Tablet Take 20 mg by mouth daily. documented as of this encounter Progress Notes * Williams Raymond MD - 06/01/2022 12:00 PM CDT KUB 06/05/2022 = possible tiny bilateral renal stones. Images reviewed. documented in this encounter Plan of Treatment Not on file documented as of this encounter Procedures Procedure Name Priority Date/Time Associated Diagnosis Comments XR ABDOMEN KUB FLAT PLATE Routine 06/01/2022 12:07 PM CDT Kidney stones documented in this encounter Results * XR ABDOMEN KUB FLAT PLATE (06/01/2022 12:07 PM CDT) Anatomical Region Laterality Modality Abdomen N/A Digital Radiogra phy 06/05/2022 8:06 AM CDT Impressions 06/05/2022 8:09 AM CDT IMPRESSION: 1. ?? Possible tiny bilateral renal calculi. Narrative 06/05/2022 8:09 AM CDT EXAM DESCRIPTION: ?? XR ABDOMEN KUB FLAT PLATE REASON FOR STUDY: ?? History nephrolithiasis. TECHNIQUE: Single radiographic view of the abdomen acquired. COMPARISON: ?? None FINDINGS: Possible tiny bilateral renal calculi. ??Phleboliths within the pelvis. ??Stool throughout the colon THIS IS AN ELECTRONICALLY VERIFIED FINAL REPORT 06/05/2022 8:06 AM - Electronically signed by ??Timothy Salcedo M.D. AG: MIRIAM D: ??06/05/2022 8:06 AM T: ??06/05/2022 8:06 AM Report ID: [id number] Reading Location: ??[id number] Procedure Note Timothy Salcedo MD - 06/05/2022 EXAM DESCRIPTION: XR ABDOMEN KUB FLAT PLATE REASON FOR STUDY: History nephrolithiasis. TECHNIQUE: Single radiographic view of the abdomen acquired. COMPARISON: None FINDINGS: Possible tiny bilateral renal calculi. Phleboliths within the pelvis. Stool throughout the colon THIS IS AN ELECTRONICALLY VERIFIED FINAL REPORT 06/05/2022 8:06 AM - Electronically signed by Timothy Salcedo M.D. AG: MIRIAM Report ID: [id number] Reading Location: [id number] IMPRESSION: 1. Possible tiny bilateral renal calculi. Williams Raymond MD IMG DIAGNOSTIC ORDERABLES Final Result documented in this encounter Visit Diagnoses Diagnosis Kidney stones Calculus of kidney documented in this encounter Care Teams Helmet Binder Relationship Specialty Start Date End Date Kyle Hendricks MD [address] [place] [address] PCP - General Internal Medicine 04/25/22 Williams Raymond MD [address] [address] Consulting Physician Urology 06/01/22 documented as of this encounter
--- OUTSIDE RECORDS SUMMARY | 2024-10-08 03:34 | XMS_ITS | Encounter Summary ---
Author Organization [facility] Address [address] [place] [address] Phone Care Team Providers Care Nursing Assistant Name Role Phone Kyle Hendricks MD Primary Care Provider [phone] Williams Raymond MD Unavailable Encounter Details Date Type Department Care Team (Late st Contact Info) Description 06/15/2022 Documentation Only [facility] [address] [place] [address] Williams Raymond MD [address] [address] Social History Tobacco Use Types Packs/Day Years [...] AM CDT documented as of this encounter Progress Notes * Williams Raymond MD - 06/15/2022 9:54 AM CDT KUB 06/05/2022 = possible tiny bilateral renal stones. Images reviewed. documented in this encounter Plan of Treatment Not on file documented as of this encounter Visit Diagnoses Not on filedocumented in this encounter Care Teams Nursing Assistant Relationship Specialty Start Date End Date Kyle Hendricks MD [address] [place] [address] PCP - General Internal Medicine 04/25/22 Williams Raymond MD [address] [address] Consulting Physician Urology 06/01/22 documented as of this encounter
--- OUTSIDE RECORDS SUMMARY | 2024-10-08 03:34 | XMS_ITS | Clinical Summary ---
Author Organization [facility] Address [address] [place] [address] Phone Care Team Providers Care Research Geologist Name Role Phone Kyle Hendricks MD Primary Care Provider [phone] Williams Raymond MD Unavailable Allergies Active Allergy Reactions Criticality Noted Date Comments Penicillins Rash,Swelling 04/25/2022 Medications finasteride (PROSCAR) 5 MG Tablet Take 5 mg by mouth daily. Active metoprolol Succinate (TOPROL-XL) 25 MG TABLET SR 24 HR Take 25 mg by mouth daily. Active aspirin 325 MG Tablet Take 325 mg by mouth daily. Active pantoprazole (PROTONIX) 40 MG Tablet Delayed Response Take 40 mg by mouth daily. Active losartan potassium-hydroc hlorothiazide (HYZAAR) 100-25 MG Tablet Take 1 Tablet by mouth daily. Active NIFEdipine (NIFEDIAC CC PO) Take 60 mg by mouth. Active pravastatin (PRAVACHOL) 20 MG Tablet Take 20 mg by mouth daily. Active Misc Natural Products (FLEX-A-MIN JOINT FLEX PO) Take by mouth. Active ketoconazole (NIZORAL) 2 % Shampoo 05/31/2022 Active Klor-Con M10 10 MEQ Tablet Controlled Release Take 10 mEq by mouth daily. 05/24/2022 Active Active Problems Problem Noted Date Diagnosed Date Kidney stone 04/25/2022 Ureteral stone 04/25/2022 Benign prostatic hyperplasia with lower urinary tract symptoms 04/25/2022 Elevated prostate specific antigen (PSA) 022 HTN (hypertension) 04/25/2022 Family History Medical History Relation Name Comments Heart Attack Father High Cholesterol Father Hypertension Father Kidney Stones Father Prostate Cancer Father Hypertension Mother Relation Name Status Comments Father Mother Social History Tobacco Use Types Packs/Day Years [...] on file Sexual Orientation Not on file Plan of Treatment Health Maintenance Due Date Last Done Comments Hepatitis C Virus (HCV) Screening 1945 Zoster Immunization (1 of 2) 1997 Pneumococcal Immunization (50+ years) (2 of 2 - PCV) 05/02/2013 05/02/2012 Respiratory Syncytial Virus (RSV) Immunization (Adult) (1 - 1-dose 75+ series) 2022 Influenza Immunization (#1) 2024 10/0 03/2021, 07/15/2020 SARS-COV-2 Immunization ( season) 2024 05/26/2021, 12/03/2020, 11/12/2020 DTaP/Tdap/Td Immunization Discontinued 05/02/2012 TdaP Immunization Completed 05/02/2012 Hepatitis B Immunization Aged Out No longer eligible based on patient's age to complete this topic Meningococcal Immunization (ACWY) Aged Out No longer eligible based on patient's age to complete this topic Rotavirus Immunization Aged Out No lo nger eligible based on patient's age to complete this topic Insurance MEDICARE [employer] Advance Directives Documents on File Type Date Recorded Patient 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
--- OUTSIDE RECORDS SUMMARY | 2024-10-08 03:34 | XMS_ITS | Encounter Summary ---
Author Organization [facility] Address [address] [place] [address] Phone Care Team Providers Care Cfo Controller Name Role Phone Kyle Hendricks MD Primary Care Provider [phone] Williams Raymond MD Unavailable Reason for Referral * Radiology Services (Routine) - Closed Specialty Diagnoses / Procedures Referred By Diogo gray Referred To Contact Radiology Diagnoses Kidney stones Procedures XR ABDOMEN KUB FLAT PLATE Williams Raymond MD [address] [address] Phone: tel: fax: Referral ID Status Reason Start Date Expiration Date Visits Re quested Visits Authorized [id number] Closed 06/01/2022 1 1 Reason for Visit * Reason Comments Follow-up Encounter Details Date Type Department Care Team (Late st Contact Info) Description 06/01/2022 11:15 AM CDT Office Visit [facility] [address] [place] [id number] Williams Raymond MD [address] [address] Benign prostatic hyperplasia with lower urinary tract symptoms, symptom details unspecified (Primary Dx); Kidney stones; Elevated PSA Discharge Disposition: Discharged to home or Selfcare [...] Notes * Williams Raymond MD - 06/01/2022 11:15 AM CDT UROLOGY [facility] [address] [facility], [address] [place] [address] PHONE: FAX: Assessment & Plan BPH with lower urinary tract symptoms -- 04/2020: Overall voiding well. Bladder scan residual = 47 mL. ?Plan: continue Finasteride. -- 04/2021: voiding well. No dysuria, hematuria, hesitancy, urgency. Bladder scan residual = 21mL. Plan: continue Finasteride. -- 06/01/2022: voiding well. Plan: continue finasteride. Elevated PSA -- Prostate biopsy 06/2004 = NEGATIVE. -- Prostate biopsy 10/2005 = NEGATIVE. -- Prostate biopsy 07/2007 = NEGATIVE (PSA 6.12 in 06/2007). -- PCA3 06/2008 = negative. ??PSA 7.6 in 09/2009. -- PSA 5.05 with F/T 21% on 09/26/13. Was taking Finasteride QOD. -- PSA 5.25 with F/T 19% on 03/22/15. PSA 3.72 in 03/2017. -- PSA 6.53 in 03/2017; closer to 13.06 due to Finasteride. -- 4KScore 04/2017 = 4% (96% probability of not having aggressive cancer on prostate biopsy). -- PSA 5.75 in 03/2018; closer to 11.5 due to Finasteride. -- PSA 5.02 in 02/2019; closer to 10.04 due to Finasteride. -- PSA 5.96 in 04/2020; closer to 11.9 due to Finasteride. --??PSA 5.65 in 04/2021; closer to 11.3 due to Finasteride. -- Will check last PSA. Question of Testosterone deficiency -- Low energy. Testosterone 269 in 03/2019. ?Testosterone 282 in 04/2020. ?Plan: pt considering testosterone therapy. Urolithiasis -- Left proximal ureteral stone 01/2006 = ureteroscopy and ESWL. -- KUB 09/14/14 = 5-6 mm stone/cluster right mid renal pole. -- KUB 03/2017 = no obvious stone seen; overlying bowel content makes evaluation difficult. -- KUB 03/2018 = no obvious stone seen. Possible calcification 3 mm right renal pelvis. -- KUB 03/2019 = question of 4 mm right renal pelvic stone on 1 of 2 views. -- KUB 04/20/20 at = negative for stones. Image reviewed personally. -- KUB 04/2021 = 2.5mm left upper renal stone. ??Will recheck in 1 year. -- Plan: continued conservative management. Check KUB History of pulmonary embolism -- Occurred after shoulder surgery n 06/2015. FU in 1 year with KUB. Subjective: 05/31/2022 HPI: HPI: Wiliam Britt presents with a chief complaint of BPH, kidney stones, and elevated PSA. The following portions of the patient's chart were reviewed in this encounter and updated as appropriate: ROS: Review of systems was negative, except as documented in HPI. Objective: Vital signs: There were no vitals taken for this visit. There were no vitals filed for this visit. GENERAL: Normal appearance. Patient is sitting in the exam room comfortably. EYES: Extraocular movements intact. No scleral icterus, normal conjuctiva. ENT: Normal external appearance; oral mucosa is pink and moist. NECK: Symmetrical, no visible thyromegaly or masses. CARDIAC: Regular rate RESPIRATORY: Unlabored respirations. Symmetric chest expansion. GASTROINTESTINAL: Abdomen soft, non-tender. GENITOURINARY: Exam defferred. MUSCULOSKELETAL: No obvious cyanosis or clubbing of digits SKIN: Skin appears pink and dry. No obvious rashes over face, neck, or arms. PSYCHIATRIC: Normal judgment and insight. Oriented to person, place, and time; mood and affect are normal. No results found for: WBC, HEMOGLOBIN, HEMATOCRIT, PLATELETCNT, MCV No results found for: SODIUM, POTASSIUM, CHLORIDE, CO2VEN, ANIONGAP, GLUCOSE, BUN, CREATININE, BCRATIO8, TOTALPROTEIN, ALBUMIN, AGRATIO, CALCIUM, TBIL, SGOTAST, SGPTALT, ALKALINEPHO, GFRNA, GFRA No results found for: PSASCREEN, PSA, PSAFREE, PSAPCNTFREE, PSATOTAL No results found for this or any previous visit. No results found for: TESTOSTTTL No results found for this or any previous visit from the past 365 days. No results found for this or any previous visit from the past 365 days. No results found for this or any previous visit from the past 365 days. There are no diagnoses linked to this encounter. By: Williams Raymond MD, 05/31/2022, 9:22 PM CDT Primary Care Physician: KYLE HENDRICKS MD documented in this encounter Plan of Treatment Not on file documented as of this encounter Procedures Procedure Name Priority Date/Time Associated Diagnosis Comments URINALYSIS REFLEX IF INDICATED BY ABNORMAL RESULTS Routine 06/01/2022 3:39 PM CDT Kidney stones documented in this encounter Results * (ABNORMAL) URINALYSIS REFLEX IF INDICATED BY ABNORMAL RESULTS (06/01/2022 3:39 PM CDT) SPECIFIC GRAVITY 1.020 1.003 - 1.030 06/01/2022 9:13 PM CDT [facility] URINE PH 5.0 5.0 - 9.0 06/01/2022 9:13 PM CDT [facility] WBC ESTERASE Negative Negative 06/01/2022 9:13 PM CDT [facility] NITRITE Negative Negative 06/01/2022 9:13 PM CDT [facility] PROTEIN, RANDOM URINE 30 mg/dL(A) Negative 06/01/2022 9:13 PM CDT [facility] URINE GLUCOSE, QUAL Negative Negative 06/01/2022 9:13 PM CDT [facility] URINE KETONES Negative Negative 06/01/2022 9:13 PM CDT [facility] UROBILINOGEN Normal Normal mg/dL 06/01/2022 9:13 PM CDT [facility] URINE BLOOD 50 /uL(A) Negative guero/ul 06/01/2022 9:13 PM CDT [facility] URINALYSIS COLOR Yellow 06/01/20 9:13 PM CDT [facility] URINALYSIS CLARITY Clear 06/01/2022 9:13 PM CDT [facility] WBC (Urine) 0-5 Negative, 0-5 /hpf 06/01/2022 9:13 PM CDT [facility] URINE RBC'S 6-10(A) Negative, 0-2 /hpf 06/01/2022 9:13 PM CDT [facility] EPITHELIAL CELLS Occasional /lpf 06/01/20 9:13 PM CDT [facility] BACTERIA, URINE Few(A) Negative /hpf 06/01/2022 9:13 PM CDT [facility] Urine URINE SPECIMEN COLLECTION, CLEAN CATCH / Unknown Non-Phlebotomy Collection / Unknown 06/01/2022 3:39 PM CDT 06/01/2022 3:39 PM CDT us Williams Raymond MD URINE ORDERABLES Final Result [facility] [address] [place] [address] * XR ABDOMEN KUB FLAT PLATE (06/01/2022 [...] Electronically signed by ??Timothy Salcedo M.D. AG: AG D: ??06/05/2022 8:06 AM T: ??06/05/2022 8:06 AM Report ID: [id number] Reading Location: ??[id number] Procedure Note Timothy Salcedo MD - 06/05/2022 EXAM DESCRIPTION: XR ABDOMEN KUB FLAT PLATE REASON FOR STUDY: History nephrolithiasis. TECHNIQUE: Single radiographic view of the abdomen acquired. COMPARISON: None FINDINGS: Possible tiny bilateral renal calculi. Phleboliths within the pelvis. Stool throughout the colon THIS IS AN ELECTRONICALLY VERIFIED FINAL REPORT 06/05/2022 8:06 AM - Electronically signed by Timothy Salcedo M.D. AG: AG Report ID: [id number] Reading Location: [id number] IMPRESSION: 1. Possible tiny bilateral renal calculi. Williams Raymond MD IMG DIAGNOSTIC ORDERABLES Final Result documented in this encounter Visit Diagnoses Diagnosis Benign prostatic hyperplasia with lower urinary tract symptoms, symptom details unspecified- Primary Kidney stones Calculus of kidney Elevated PSA Elevated prostate specific antigen (PSA) Kidney stones Calculus of kidney documented in this encounter Care Teams Cfo Controller Relationship Specialty Start Date End Date Kyle Hendricks MD [address], [place] [id number] PCP - General Internal Medicine 04/25/22 Williams Raymond MD [address] [place] [address] Consulting Physician Urology 06/01/22 documented as of this encounter
--- OUTSIDE RECORDS SUMMARY | 2024-10-08 03:34 | XMS_ITS | Encounter Summary ---
Author Organization [employer] Care Team Providers Care Boxer Operator Name Role Phone Kyle Hendricks MD Primary Care Provider [phone] Williams Raymond MD Unavailable Encounter Details Date Type Department Care Team (Latest Contact Info) Description 06/01/2022 Travel Social History Tobacco Use Types Packs/Day [...] AM CDT documented as of this encounter Plan of Treatment Not on file documented as of this encounter Visit Diagnoses Not on filedocumented in this encounter Care Teams Boxer Operator Relationship Specialty Start Date End Date Kyle Hendricks MD [address] [place] [address] PCP - General Internal Medicine 04/25/22 Williams Raymond MD [address] [address] Consulting Physician Urology 06/01/22 documented as of this encounter
--- OUTSIDE RECORDS SUMMARY | 2024-10-08 03:46 | XMS_ITS | Clinical Summary ---
Author Organization Unknown Care Team Providers Care Music Video Producer Name Role Phone DAVID MENDES, SOLA Unavailable Unavailable GRAWN PHYSICAL THERAPIST, WILLOW Moffettabl e Unavailable GANTT CLINICAL RESEARCH ANALYST, NICHOLAS Unavail able Unavailable ELINOR REGISTERED NURSE, RADHA Unavailable Unavailable Payers Payer Name Policy Type Policy Number Effective Date Expira tion Date MEDICARE [place] - EPISODIC [id number] Problems Condition Name Condition Details Condition Category Status Onset Date Resolution Date Last Treatment Date Treating Clinician Comments ENCNTR FOR SURGICAL AFTCR FOLLOWING SURGERY ON THE CIRC SYS Active 14 00:00: 00 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 10-08 00:00: 00 ATHSCL HEART DISEASE OF [place] CORONARY ARTERY W/O ANG PCTRS Active 10-08 [...] OF NICOTINE DEPENDENCE Active 10-08 00:00: 00 PYROGLAZER (CURRENT) USE OF ASPIRIN Active 10-08 00:00: [...] 200 mg tablet 03-24 00:00: 00 Yes [id number] AFIB 1 tablet ONCE DAILY 1 tablet ONCE DAILY (route: oral) Med Classific ation: Cardiovas cular Therapy Agents aspirin 81 mg chewable tablet 03-24 00:00: 00 Yes [id number] ANTIPLATLET 1 tablet ONCE DAILY 1 tablet ONCE DAILY (route: oral) Med Classific ation: Hematolog ical Agents Co Q-10 30 mg capsule 03-24 00:00: 00 Yes [id number] SUPPLEMENT 1 capsule ONCE DAILY 1 capsule ONCE DAILY (route: oral) Med Classific ation: Alternati ve Therapy finasteride 5 mg tablet 03-24 00:00: 00 Yes [id number] URINARY RETENTION 1 tablet AT BEDTIME 1 tablet AT BEDTIME (route: oral) Med Classific ation: Genitouri nary Therapy Flomax 0.4 mg capsule 03-24 00:00: 00 Yes [id number] BPH 1 capsule ONCE DAILY 1 capsule ONCE DAILY (route: oral) Med Classific ation: Genitouri nary Therapy Lasix 20 mg tablet 03-24 00:00: 00 03-31 23:59 :00 No [id number] DIURETIC 1 tablet ONCE DAILY 1 tablet ONCE DAILY (route: oral) Med Classific ation: Cardiovas cular Therapy Agents metoprolol tartrate 25 mg tablet 03-24 00:00: 00 Yes [id number] HTN 1 tablet AT BEDTIME 1 tablet AT BEDTIME (route: oral) Med Classific ation: Cardiovas cular Therapy Agents Miralax 17 gram oral powder packet 03-24 00:00: 00 Yes [id number] CONSTIPATIO N 1 packet ONCE DAILY 1 packet ONCE DAILY (route: oral) Med Classific ation: Gastroint estinal Therapy Agents pantoprazol e 40 mg tablet,cecilia yed release 03-24 00:00: 00 Yes [id number] GERD 1 tablet AT BEDTIME 1 tablet AT BEDTIME (route: oral) Med Classific ation: Gastroint estinal Therapy Agents potassium chloride ER 20 mEq tablet,exte nded release 03-24 00:00: 00 03-31 23:59 :00 No [id number] SUPPLEMENT 1 tablet ONCE DAILY 1 tablet ONCE DAILY (route: oral) Med Classific ation: Electroly te Balance-N utritiona l Products rosuvastati n 40 mg tablet 03-24 00:00: 00 Yes [id number] CHOLESTROLO L 1 tablet ONCE DAILY 1 tablet ONCE DAILY (route: oral) Med Classific ation: Cardiovas cular Therapy Agents Senna Lax 8.6 mg tablet 03-24 00:00: 00 Yes [id number] CONSTIPATIO N 1 tablet ONCE DAILY 1 tablet ONCE DAILY (route: oral) Med Classific ation: Gastroint estinal Therapy Agents Tylenol Extra Strength 500 mg tablet 03-24 00:00: 00 Yes [id number] PAIN 2 tablet 3 TIMES DAILY 2 [...] SOAP AND PAT DRY WITH GAUZE ANDLEAVE [employer] FIELD COORDINATOR. DISCONTINUE WHEN WOUND IS HEALED. MAY ADD [...] PHYSICIAN OR 911.] Future Scheduled Test HOME [facility] NURSE WILL TEACH PATIENT/CAREGIVER ABOUT CABG, HOW [...] WILL BE ESTABLISHED THAT MEETS ALL PATIENT'S SENIOR CARE NEEDS AND COUNTER SIGNED BY PHYSICIAN. Goal [...] End Date/Time Encounter Type Admission Type Attending [facility] Care Department Encounter ID Discharge Date Discharge Status Discharge Condition Discharge Reason Percent Goals Met 2024-03-24 00:00:00 2024-04-22 00:00:00 Outpatient NEW ADMISSION RADHA ALDRICH [facility] [id number] [id number] 00:00:00 DISCHARGE TO HOME OR SELF CARE INDEPENDEN T IN THE COMMUNITY GOALS MET 100.00
--- OUTSIDE RECORDS SUMMARY | 2024-10-08 03:48 | XMS_ITS | Clinical Summary ---
Author Organization Unknown Care Team Providers Care Wood Repatcher Name Role Phone DAVID EMNDES, SOLA Unavailable Unavailable ELKO [employer] PHYSICAL THERAPIST, WILLOW Moffettabl e Unavailable [place] BINDERY MACHINE TENDER, NICHOLAS Unavail able Unavailable ELINOR REGISTERED NURSE, RADHA Unavailable Unavailable Payers Payer Name Policy Type Policy Number Effective Date Expira tion Date MEDICARE [employer] - EPISODIC [id number] Problems Condition Name Condition Details Condition Category Status Onset Date Resolution Date Last Treatment Date Treating Clinician Comments ENCNTR FOR SURGICAL AFTCR FOLLOWING SURGERY ON THE CIRC SYS Active 14 00:00: 00 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 10-08 00:00: 00 ATHSCL HEART DISEASE OF [place] CORONARY ARTERY W/O ANG PCTRS Active 10-08 [...] OF NICOTINE DEPENDENCE Active 10-08 00:00: 00 [place] [employer]ES FOOTBALLER (CURRENT) USE OF ASPIRIN Active 10-08 00:00: [...] 200 mg tablet 03-24 00:00: 00 Yes [id number] AFIB 1 tablet ONCE DAILY 1 tablet ONCE DAILY (route: oral) Med Classific ation: Cardiovas cular Therapy Agents aspirin 81 mg chewable tablet 03-24 00:00: 00 Yes [id number] ANTIPLATLET 1 tablet ONCE DAILY 1 tablet ONCE DAILY (route: oral) Med Classific ation: Hematolog ical Agents Co Q-10 30 mg capsule 03-24 00:00: 00 Yes [id number] SUPPLEMENT 1 capsule ONCE DAILY 1 capsule ONCE DAILY (route: oral) Med Classific ation: Alternati ve Therapy finasteride 5 mg tablet 03-24 00:00: 00 Yes [id number] URINARY RETENTION 1 tablet AT BEDTIME 1 tablet AT BEDTIME (route: oral) Med Classific ation: Genitouri nary Therapy Flomax 0.4 mg capsule 03-24 00:00: 00 Yes [id number] BPH 1 capsule ONCE DAILY 1 capsule ONCE DAILY (route: oral) Med Classific ation: Genitouri nary Therapy Lasix 20 mg tablet 03-24 00:00: 00 03-31 23:59 :00 No [id number] DIURETIC 1 tablet ONCE DAILY 1 tablet ONCE DAILY (route: oral) Med Classific ation: Cardiovas cular Therapy Agents metoprolol tartrate 25 mg tablet 03-24 00:00: 00 Yes [id number] HTN 1 tablet AT BEDTIME 1 tablet AT BEDTIME (route: oral) Med Classific ation: Cardiovas cular Therapy Agents Miralax 17 gram oral powder packet 03-24 00:00: 00 Yes [id number] CONSTIPATIO N 1 packet ONCE DAILY 1 packet ONCE DAILY (route: oral) Med Classific ation: Gastroint estinal Therapy Agents pantoprazol e 40 mg tablet,cecilia yed release 03-24 00:00: 00 Yes [id number] GERD 1 tablet AT BEDTIME 1 tablet AT BEDTIME (route: oral) Med Classific ation: Gastroint estinal Therapy Agents potassium chloride ER 20 mEq tablet,exte nded release 03-24 00:00: 00 03-31 23:59 :00 No [id number] SUPPLEMENT 1 tablet ONCE DAILY 1 tablet ONCE DAILY (route: oral) Med Classific ation: Electroly te Balance-N utritiona l Products rosuvastati n 40 mg tablet 03-24 00:00: 00 Yes [id number] CHOLESTROLO L 1 tablet ONCE DAILY 1 tablet ONCE DAILY (route: oral) Med Classific ation: Cardiovas cular Therapy Agents Senna Lax 8.6 mg tablet 03-24 00:00: 00 Yes [id number] CONSTIPATIO N 1 tablet ONCE DAILY 1 tablet ONCE DAILY (route: oral) Med Classific ation: Gastroint estinal Therapy Agents Tylenol Extra Strength 500 mg tablet 03-24 00:00: 00 Yes [id number] PAIN 2 tablet 3 TIMES DAILY 2 [...] SOAP AND PAT DRY WITH GAUZE ANDLEAVE SOLUTION MAKER. DISCONTINUE WHEN WOUND IS HEALED. MAY ADD [...] PHYSICIAN OR 911.] Future Scheduled Test HOME [facility] NURSE WILL TEACH PATIENT/CAREGIVER ABOUT CABG, [...] WILL BE ESTABLISHED THAT MEETS ALL PATIENT'S HALFWAY NEEDS AND COUNTER SIGNED BY PHYSICIAN. Goal [...] Date/Time Encounter Type Admission Type Attending [facility] Care Department Encounter ID Discharge Date Discharge Status Discharge Condition Discharge Reason Percent Goals Met 2024-03-24 00:00:00 2024-04-22 00:00:00 Outpatient NEW ADMISSION RADHA ALDRICH [facility] [id number] 00:00:00 DISCHARGE TO HOME OR SELF CARE INDEPENDEN T IN THE COMMUNITY GOALS MET 100.00
== END 2024-10-01 08:25 | disposition short-term general hospital (02) ==
PROVIDERS: Emergency Provider Internal Medicine Critical Care Medicine; PCP Internal Medicine
DX: R33.9 Retention of urine, unspecified (principal); D68.32 Hemorrhagic disorder due to extrinsic circulating anticoagulants; T45.515A Adverse effect of anticoagulants, initial encounter; R31.0 Gross hematuria; R10.30 Lower abdominal pain, unspecified; I25.10 Atherosclerotic heart disease of native coronary artery without angina pectoris; I10 Essential (primary) hypertension; E78.5 Hyperlipidemia, unspecified; K21.9 Gastro-esophageal reflux disease without esophagitis; C91.10 Chronic lymphocytic leukemia of B-cell type not having achieved remission; I48.91 Unspecified atrial fibrillation; Z90.79 Acquired absence of other genital organ(s); Z86.718 Personal history of other venous thrombosis and embolism; Z95.1 Presence of aortocoronary bypass graft; Z79.82 Long term (current) use of aspirin; Z79.01 Long term (current) use of anticoagulants
CPT/HCPCS: 36415; 51700; 80053; 83605; 85025; 85055; 96365; 99284

== ENCOUNTER 2025-01-09 02:22 | Emergency (ER) | payer MEDICARE, OTHER, SELFPAY ==
--- NOTE | ~2025-01-09 | CT_ITS ---
Non-contrast CT scan of the Abdomen and Pelvis Clinical indication: Kidney stones Technique: 2.5 mm axial scans were obtained through the abdomen and pelvis without intravenous or or al contrast. Dose reduction technique was used on this scan by utilizing automated exposure control a nd iterative reconstruction technique. The dose-length product (DLP) was 599.94 mGy-cm. COMPARISON: 04/16/2024 Findings: Images through the lung bases reveal no abnormalities. Multiple small nonobstructing left renal stones are present, measuring up to 3 mm. Left renal cyst pr esent. Punctate nonobstructing right renal stone present. No ureteral stone or hydronephrosis on eith er side. The liver, pancreas, gallbladder, and adrenals appear normal. Spleen is enlarged, measuring 15.6 cm i n length. There is no aortic aneurysm. There is no evidence of bowel obstruction. Images through the pelvis were performed. There is no evidence of ascites or lymphadenopathy. Urinary bladder unremarkable. No pelvic mass seen. 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 Impression: Bilateral nonobstructing renal stones, as above. No ureteral stone or hydronephrosis. Reviewed, dictated and finalized at location . Impression: Bilateral nonobstructing renal stones, as above. No ureteral stone or hydroneph rosis.
--- OUTSIDE RECORDS SUMMARY | 2025-01-09 02:24 | XMS_ITS | Clinical Summary ---
Author Organization [facility] Address [address] [place] [address] Care Team Providers Care Blueprint Developer Name Role Phone Denis Blunt MD Unavailable [phone] Kyle Hendricks MD Primary Care Provider [phone] Allergies Active Allergy Reactions Criticality Noted Date Comments Penicillins Hives 09/16/2024 Medications amiodarone (PACERONE) 200 MG tablet Take 1 tablet (200 mg total) by mouth daily. 04/25/2024 Active pantoprazole EC (PROTONIX) 40 MG tablet Take 1 tablet (40 mg total) by mouth daily. Active rosuvastatin (CRESTOR) 40 MG tablet Take 1 tablet (40 mg total) by mouth daily. 03/23/2024 Active spironolactone (ALDACTONE) 25 MG tablet Take 0.5 tablets (12.5 mg total) by mouth daily. 07/07/2024 Active furosemide (LASIX) 40 MG tablet Take 0.5 tablets (20 mg total) by mouth daily. 07/21/2024 Active sacubitril-vals lydia (ENTRESTO) 49-51 MG tablet Take 1 tablet by mouth 2 (two) times daily. 06/13/2024 Active metoprolol succinate ER (TOPROL-XL) 25 MG 24 hr tablet Take 1 tablet (25 mg total) by mouth daily. Active aspirin 81 MG chewable tablet Chew 1 tablet (81 mg total) by mouth daily. 03/23/2024 Active coenzyme Q-10 (CO Q-10) 100 MG capsule Take 1 capsule (100 mg total) by mouth daily. Active senna-docusate (SENOKOT-S) 8.6-50 MG tablet Take 2 tablets by mouth 2 (two) times daily. 03/22/2024 Active Active Problems Problem Noted Date Diagnosed Date Hematuria 10/01/2024 Gross hematuria 10/01/2024 Hypertrophy of prostate with urinary obstruction 09/23/2024 Social History Tobacco Use Types Packs/Day Years Used Date Smoking Tobacco: Former Cigarettes Smokeless Tobacco: Never Tobacco Cessation:Counseling Given: Not Answered Comments:Quit smoking 1976 Alcohol Use Standard Drinks/Week Comments Not Currently 0 (1 standard drink = 0.6 oz pur e alcohol) rare beer [facility] Utilities Answer Date Recorded In the past 12 months has [employer], [employer], oil, or water [employer] threatened to shut off services in your [...] [facility] time in the past [facility] were you homeless or living in a custodial (including now)? No 10/01/2024 Sex and Gender Information Value Date Recorded Sex Assigned at Not on file Legal Sex Male 7:25 PM CDT Gender Identity Not on file Sexual Orientation Not on file Last Filed Vital Signs Vital Sign Reading Time Taken Comments Blood Pressure 152/77 10/02/2024 11:31 AM [employer] Pulse 58 10/02/2024 11:31 AM [employer] Temperature 36.7 C (98 F) 10/02/2024 7:39 AM [employer] Respiratory Rate 19 10/02/2024 11:31 AM [employer] Oxygen Saturation 99% 10/02/2024 11:31 AM [employer] Inhaled Oxygen Concentration - - Weight 90.9 kg (200 lb 6.4 oz) 10/02/2024 6:46 A M [employer] Height 190.5 cm (6' 3 ) 10/01/2024 9:34 AM [employer] Body Mass Index 25.05 10/01/2024 9:34 AM [employer] Plan of Treatment Health Maintenance Due Date Last Done Comments Zoster Vaccines (1 of 2) 1997 Annual Medicare Wellness Visit 01/18/2012 COVID-19 Vaccine ( season) 2024 10/04/2023, 09/20/2022, 11/07/2021, Additional history exists DTaP, Tdap and Td Vaccines (3 - Td or Tdap) 09/09/2034 09/09/2024, 05/02/2012 Pneumococcal Vaccine: 65+ Years Completed 07/03/2019, 06/13/2018, 05/02/2012 RSV Immunization or 60+ Years Completed 08/29/2024 Hepatitis C Completed 10/15/2024, 10/15/2024 Meningococcal B Vaccine Aged Out No l onger eligible based on patient's age to complete this topic Meningococcal Vaccine Aged Out No jacob spike eligible based on patient's age to complete this topic RSV Immunizations Under 20 Months Aged Out No longer eligible based on patient's age to complete this topic Insurance MEDICARE [employer] Advance Directives * Full Code (Latest Code Status on File) Date Activated Date Inactivated Comments 10/01/2024 9:43 AM 10/02/2024 5:00 PM * Full Code Date Activated Date Inactivated Comments 09/23/2024 4:25 PM 09/25/2024 7:07 PM Care Teams Blueprint Developer Relationship Specialty Start Date End Date Kyle Hendricks MD [address] [place] [address] PCP - General INTERNAL MEDICINE 09/23/24 Denis Blunt MD [address] [facility] [address] [place] [address] CARDIOVASCULAR DISEASE 09/16/24
--- OUTSIDE RECORDS SUMMARY | 2025-01-09 02:24 | XMS_ITS | Referral Summary ---
Author Organization [facility] Address [address] [place] [address] Care Team Providers Care Program Instructor Name Role Phone Kyle Hendricks MD Primary Care Provider [phone] Amilcar Sarabia MD Unavailable [phone] Cas Taylor MD Unavailable [phone] Encounters Date Type Department Care Team Description 01/07/2025 7:45 AM CDT Clinical Support [facility] - Lab Collection [address] [place] [address] 6 [place] [address] Chronic lymphoid leukemia, without mention of having achieved remission(204.10) (HCC) 01/07/2025 10:00 AM CDT Infusion [facility] - Infusion [address] [facility] 6 [place] [address] Chemotherapy-induced neutropenia (Primary Dx); Chronic lymphoid leukemia, without mention of having achieved remission(204.10) (HCC) 01/07/2025 8:00 AM CDT Lab [facility] [address] [place] [address] 6 [place] [address] Chronic lymphoid leukemia, without mention of having achieved remission(204.10) (HCC); Chemotherapy-induced neutropenia 01/07/2025 9:00 AM CDT Office Visit [facility] [address] [place] [phone] Jolie Iraheta NP CLL (chronic lymphocytic leukemia) (HCC) (Primary Dx); Chronic lymphoid leukemia, without mention of having achieved remission(204.10) (HCC); Chemotherapy-induced neutropenia 12/17/2024 7:30 AM CDT Infusion [facility] - [facility]fusion [facility] 6 [place] [address] Iron deficiency anemia, unspecified iron deficiency anemia type (Primary Dx); CLL (chronic lymphocytic leukemia) ([facility]); Chronic lymphoid leukemia, without mention of having achieved remission(204.10) ([facility]) 12/10/2024 7:45 AM BILLING ANALYST Lab [facility] - Lab Collection [address] [place] [address] Chronic lymphoid leukemia, without mention of having achieved remission(204.10) ([facility]); CLL (chronic lymphocytic leukemia) ([facility]) 12/10/2024 2:30 PM BILLING ANALYST Infusion [facility] - Infusion [address] [place] [address] [address] CLL (chronic lymphocytic leukemia) ([facility]) 12/10/2024 9:30 AM BILLING ANALYST Infusion [facility] - Infusion [address] [place] [address] 6 [place] [address] Chronic lymphoid leukemia, without mention of having achieved remission(204.10) ([facility]) (Primary Dx); Iron deficiency anemia, unspecified iron deficiency anemia type 12/10/2024 7:30 AM BILLING ANALYST Lab [facility] [address] [place] [phone] Chronic lymphoid leukemia, without mention of having achieved remission(204.10) ([facility]) 12/10/2024 8:30 AM BILLING ANALYST Office Visit [facility] [address] [place] [phone] Amilcar Sarabia MD CLL (chronic lymphocytic leukemia) ([facility]) (Primary Dx); Chronic lymphoid leukemia, without mention of having achieved remission(204.10) ([facility]) 11/26/2024 Telephone [facility] [address] [place] [phone] Jolie Iraheta NP 11/26/2024 7:40 AM BILLING ANALYST Lab [address] [phone] Chronic lymphoid leukemia, without mention of having achieved remission(204.10) ([facility]) 11/19/2024 Telephone [facility] [address] [place] [address] 6 [place] [phone] Leeanna Vela RN 11/19/2024 Orders Only [facility] [address] [place] [address] 6 [place] [phone] Leeanna Vela RN Chronic lymphoid leukemia, without mention of having achieved remission(204.10) ([facility]) (Primary Dx) 11/19/2024 8:05 AM BILLING ANALYST Lab [address] [phone] Chronic lymphoid leukemia, without mention of having achieved remission(204.10) ([facility]) 11/14/2024 Orders Only [facility] [address] [place] [phone] Jolie Iraheta NP CLL (chronic lymphocytic leukemia) ([facility]) (Primary Dx) 11/13/2024 Telephone [facility] [address] [place] [phone] Leeanna Vela RN 11/13/2024 8:15 AM BILLING ANALYST Lab [address] [phone] Chronic lymphoid leukemia, without mention of having achieved remission(204.10) ([facility]) 11/12/2024 7:45 AM BILLING ANALYST Lab [facility] - Lab Collection [address] [place] [address] Floor 6 [place] [address] Chronic lymphoid leukemia, without mention of having achieved remission(204.10) ([facility]) 11/12/2024 10:00 AM BILLING ANALYST Infusion [facility] - Infusion [address] [place], [place] [address] Floor 5 [place] [address] Chronic lymphoid leukemia, without mention of having achieved remission(204.10) ([facility]) (Primary Dx) 11/12/2024 9:00 AM BILLING ANALYST Office Visit [facility] [address] [place] [address] Floor 6 [place] [phone] Jolie Iraheta NP CLL (chronic lymphocytic leukemia) ([facility]) (Primary Dx); Chronic lymphoid leukemia, without mention of having achieved remission(204.10) ([facility]) 11/12/2024 8:00 AM BILLING ANALYST Lab [facility] [address] [place] [phone] Chronic lymphoid leukemia, without mention of having achieved remission(204.10) ([facility]) 11/06/2024 Telephone [facility] [address] [place] [phone] Leeanna Vela RN 11/06/2024 8:55 AM BILLING ANALYST Lab [address] [phone] Chronic lymphoid leukemia, without mention of having achieved remission(204.10) ([facility]) 11/05/2024 2:45 PM BILLING ANALYST Lab [facility] [address] [place] [phone] Chronic lymphoid leukemia, without mention of having achieved remission(204.10) ([facility]) 11/05/2024 9:15 AM BILLING ANALYST Clinical Support [facility] Lab Collection [address] [place] [address] Chronic lymphoid leukemia, without mention of having achieved remission(204.10) ([facility]) 11/05/2024 10:00 AM BILLING ANALYST Office Visit [facility] [address] [place], [place] [phone] Jolie Iraheta NP Chronic lymphoid leukemia, without mention of having achieved remission(204.10) ([facility]) (Primary Dx) 11/05/2024 9:00 AM BILLING ANALYST Lab [facility] [address] [place] [phone] Chronic lymphoid leukemia, without mention of having achieved remission(204.10) ([facility]) 11/05/2024 7:08 AM BILLING ANALYST - 11/05/2024 11:59 PM BILLING ANALYST Hospital [facility] [address] [place] [address] Amilcar Sarabia MD CLL (chronic lymphocytic leukemia) ([facility]) Discharge Disposition: Discharge to home or self care 10/29/2024 8:00 AM BILLING ANALYST Lab [facility] Collection [address] [place] [address] Chronic lymphoid leukemia, without mention of having achieved remission(204.10) (HCC) 10/29/2024 9:00 AM BILLING ANALYST Infusion [facility] Infusion [address] [place] [address] Floor 6 [place] [address] Chronic lymphoid leukemia, without mention of having achieved remission(204.10) (HCC) (Primary Dx) 10/23/2024 8:15 AM BILLING ANALYST Office Visit [facility] [address] [place] [address] Denis Blunt MD Ischemic cardiomyopathy (Primary Dx) 10/22/2024 8:00 AM BILLING ANALYST Lab [facility] [address] [place] [address] 6 [place] [address] Chronic lymphoid leukemia, without mention of having achieved remission(204.10) (HCC); CAD in [place] artery 10/22/2024 9:00 AM BILLING ANALYST Infusion [facility] Infusion [address] [place] [address] Chronic lymphoid leukemia, without mention of having achieved remission(204.10) (HCC) (Primary Dx) 10/17/2024 Documentation [facility] [address] [place] [address] Leni Bull, RMA FINANCIAL ASSIST [employer] 10/17/2024 Telephone [facility] [address] [place] [phone] Leni So RN 10/16/2024 Orders Only [facility] 6 [place] [address] Amilcar Sarabia MD Chronic lymphoid leukemia, without mention of having achieved remission(204.10) (HCC) (Primary Dx) 10/16/2024 9:00 AM BILLING ANALYST Lab [facility] Collection [address] [place] [address] 6 [place] [address] Chronic lymphoid leukemia, without mention of having achieved remission(204.10) (HCC); CAD in [place] artery 10/16/2024 10:00 AM BILLING ANALYST Infusion [facility] [address] [place] [address] Chronic lymphoid leukemia, without mention of having achieved remission(204.10) ([facility]) (Primary Dx) 10/15/2024 Documentation [facility] [address] [place] [phone] Tanesha Pacheco, RMA Appointment 10/15/2024 7:30 AM BILLING ANALYST Lab [facility] [address] [place] [address] Chronic lymphoid leukemia, without mention of having achieved remission(204.10) ([facility]); CLL (chronic lymphocytic leukemia) ([facility]) 10/15/2024 9:30 AM BILLING ANALYST Infusion [facility] [address] [place] [address] Chronic lymphoid leukemia, without mention of having achieved remission(204.10) ([facility]) (Primary Dx) 10/15/2024 8:15 AM BILLING ANALYST Office Visit [facility] [address] [place] [phone] Amilcar Sarabia MD CLL (chronic lymphocytic leukemia) ([facility]) (Primary Dx); Chronic lymphoid leukemia, without mention of having achieved remission(204.10) ([facility]) 10/15/2024 7:15 AM BILLING ANALYST Lab [facility] [address] [place] [phone] Chronic lymphoid leukemia, without mention of having achieved remission(204.10) ([facility]) 10/14/2024 Telephone [facility] [address] [place] [phone] Leni So RN from Last 3 Months Allergies Active Allergy Reactions Criticality Noted Date Comments Obinutuzumab Flushing (skin) Low 10/15/2024 Rigors + flushing Penicillins Hives High 10/30/2018 Medications metoprolol XL (TOPROL-XL) 50 mg extended release tablet Take 1 tablet (50 mg total) by mouth nightly at bedtime. [address] (PROTONIX) 40 mg EC tablet Take 1 tablet (40 mg total) by mouth daily 0 018 Active ketoconazole (NIZORAL) 2 % shampoo 022 Active coenzyme Q10 100 mg capsule Take 1 capsule (100 mg total) by mouth daily Active rosuvastatin (CRESTOR) 40 mg tablet Take 1 tablet (40 mg total) by mouth daily 30 tablet 1 024 2024 Active senna-docusate (PERICOLACE) 8.6-50 mg Take 2 tablets by mouth 2 (two) times a day 024 Active amiodarone (PACERONE) 200 mg tabletIndications :Atrial fibrillation, unspecified type (HCC) Take 1 tablet (200 mg total) by mouth daily 30 tablet 11 024 2024 Active sacubitriL-valsar valentin (ENTRESTO) 49-51 mg tabletIndications :chronic heart failure Take 1 tablet by mouth 2 (two) times a day 180 tablet 3 024 Active prochlorperazine (Compazine) 10 mg tabletIndications :Chronic lymphoid leukemia, without mention of having achieved remission(204.10) (HCC) Take 1 tablet (10 mg total) by mouth every 6 (six) hours as needed for nausea or vomiting 30 tablet 3 025 Active Additional Information Patient not taking.Reported on 01/07/2025 furosemide (LASIX) 40 mg tabletIndications :Ischemic cardiomyopathy TAKE 1/2 TABLET BY MOUTH DAILY 45 tablet 1 025 Active aspirin 81 mg chewable tablet Take 1 tablet (81 mg total) by mouth daily Active spironolactone (ALDACTONE) 25 mg tablet TAKE 1/2 TABLET BY MOUTH EVERY DAY 45 tablet 1 025 Active acyclovir (ZOVIRAX) 400 mg tablet Take 1 tablet (400 mg total) by mouth 2 (two) times a day 120 tablet 6 025 2025 Active venetoclax (VENCLEXTA) 100 mg tabletIndications :Chronic Lymphocytic Leukemia Take 2 tablets (200 mg total) by mouth daily Take with food and water. Do not cut, crush or split. 60 tablet 025 2024 Active acetaminophen 500 mg capsule Take 2 capsules (1,000 mg total) by mouth every 6 (six) hours as needed for pain 024 2024 Discontinued acyclovir (ZOVIRAX) 400 mg tablet Take 1 tablet (400 mg total) by mouth 2 (two) times a day 120 tablet 6 025 2024 Discontinued(R eorder) allopurinoL (ZYLOPRIM) 300 mg tabletIndications :Chronic lymphoid leukemia, without mention of having achieved remission(204.10) (HCC) TAKE 1 TABLET BY MOUTH EVERY DAY. START 48 HRS PRIOR TO STARTING OBINUTUZUMAB. CONTINUE THROUGH VENETOCLAX RAMP UP FOR A TOTAL OF AT LEAST 2 MONTHS 30 tablet 1 025 2024 Discontinued venetoclax (VENCLEXTA) 100 mg tabletIndications :Chronic Lymphocytic Leukemia Take 2 tablets (200 mg total) by mouth daily Take with food and water. Do not cut, crush or split. 60 tablet 025 2024 Discontinued Active Problems Problem Noted Date Diagnosed Date Chemotherapy-induced neutropenia 01/07/2025 Iron deficiency anemia 11/14/2024 Ischemic cardiomyopathy 10/23/2024 CKD (chronic kidney disease) stage 3, GFR 30-59 ml/min 06/13/2024 Acute post-operative pain 03/19/2024 Assessment & Plan (03/19/2024 6:44 PM CDT): To be expected following cardiac surgery -Continue scheduled Tylenol -Continue scheduled Lidocaine patch and Robaxin -Continue PRN Oxycodone Hyperlipidemia 03/19/2024 Assessment & Plan (03/19/2024 6:45 PM CDT): -Continue Rosuvastatin -Encourage low fat diet Atrial fibrillation 03/19/2024 Assessment & Plan (03/21/2024 2:48 PM CDT): -Developed post-op 03/15-03/17 -Treated with Amio gtt and PO load -Change Amiodarone to 200 daily per AP -Daily EKG for QTC monitoring, 488 today -Continue Metoprolol -Monitor telemetry, NSR 73 today Hypertension 03/12/2024 Assessment & Plan (03/19/2024 6:43 PM CDT): -Monitor VS Q4H -Continue Metoprolol 12.5mg BID -Encourage low sodium diet CLL (chronic lymphocytic leukemia) 03/12/2024 Assessment & Plan (03/21/2024 2:47 PM CDT): - Dx 2003. Has been on observation since dx. Low tumor burden. - patient followed by Dr. Sarabia from [facility] - Per BMT team, CLL stable disease okay to proceed with cardiac interventions such as CABG - Counts overall stable--> WBC mildly increased w/ mild decreased in hgb and platelets. 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/11/2024 Assessment & Plan (03/21/2024 2:42 PM CDT): 03/14: CABGx4 (VILLALTA-LAD, LMT-OI-Gzavo PLB, SVG-PDA), JOYCE clip (40mm) -TTF on 03/18 -Continue ASA and Statin -Continue Metoprolol -Continue Lasix 40mg PO daily -PCT and MCT out today - EPW out -Continue SQH for dvt ppx -Continue bowel regimen -Encourage pulmonary hygiene, IS -Continue PT/OT BPH (benign prostatic hyperplasia) 04/25/2022 Assessment & Plan (03/19/2024 6:42 PM CDT): - continue home [employer] Chronic lymphoid leukemia, w ithout mention of having achieved remission(204.10) 10/29/2018 Resolved Problems Problem Noted Date Diagnosed Date Resolved Date Coronary artery disease 03/13/202403/08 Immunocompromised 11/25/2021 11/28/2022 Immunizations Immunization Administration Dates Next Due Influenza, Quad, Adjuvantate d, Intramuscular 07/30/2022 Influenza, Quadrivalent, Hig h Dose, Preservative Free, Intrr 07/15/2020 Influenza, Quadrivalent, Spl it, Preservative Free, Intramuscular 07/13/2021 Influenza, Trivalent, High D ose, Split, Preservative Free, Intramuscular 07/03/2019 Pfizer SARS-CoV-2 Monovalent Vaccination (12+ Yrs) PURPLE 11/07/2021,12/24/2020,12/03/2020 Pneumococcal Conjugate PCV 13 06/13/2018 Pneumococcal Polysaccharide PPV23 07/03/2019, Tdap 05/02/2012 Social History Tobacco Use Types Packs/Day Years Used Date Smoking Tobacco: Former Cigarettes 0.8 4 S tarted: 1972 Smokeless Tobacco: Former Tobacco Cessation:Counseling Given: Not Answered AUDIT-C Answer Date Recorded Q1: How often do you have a drink containing alc ohol? Monthly or less 03/14/2024 Q2: How many drinks containi ng alcohol do you have on a typical day when you are drinking? 1 or 2 03/14/2024 Q3: How often do you have si x or more drinks on one occasion? Never 03/14/2024 Personal Safety Answer Date Recorded Have you ever been in or are you currently in a harmful physical or emotional relationship or is someone making you feel afraid or unsafe? Denies 03/14/2024 Sex and Gender Information Value Date Recorded Sex Assigned at Not on file Legal Sex Male 6:26 PM BILLING ANALYST Gender Identity Not on file Sexual Orientation Not on file Last Filed Vital Signs Vital Sign Reading Time Taken Comments Blood Pressure 165/95 01/07/2025 12:53 PM CDT Pulse 63 01/07/2025 12:53 PM CDT Temperature 36.6 C (97.8 F) 01/07/2025 12:53 PM CDT Respiratory Rate 16 01/07/2025 12:53 PM CDT Oxygen Saturation 99% 01/07/2025 12:53 PM CDT Inhaled Oxygen Concentration - - Weight 88.3 kg (194 lb 9.6 oz) 01/07/2025 8:15 A M CDT Height 190.5 cm (6' 3 ) 11/05/2024 8:35 AM BILLING ANALYST Body Mass Index 24.32 11/05/2024 8:35 AM BILLING ANALYST Plan of Treatment Not on file Medical Devices Implanted Type Area Digital Media Sales Consultant Device Identifier Shelf Expiration Date Model / Serial / Lot [employer] Sternalock 360 Sternal Closure 74-0004 - [id number] Implanted:Qty: 1 on 03/14/2024 by Mary Kirk MD at [facility] N/A: Sternum [employer] [id number] 01/15/2029 74-0004 / / [id number] [employer] Sternalock Anshul 2.4mm 12mm Self Drill Lock Sternum Cancellous 73-2412 - [id number] Implanted:Qty: 9 on 03/14/2024 by Mary Kirk MD at [facility] N/A: Sternum [employer] 73-2412 / / [employer] Sternalock Anshul 2.4mm 14mm Self Drill Lock Sternum Cancellous 73-2414 - [id number] Implanted:Qty: 7 on 03/14/2024 by Mary Kirk MD at [facility] N/A: Sternum [employer] 73-2414 / / Atricure Clip Closure Exclusion System Preloaded Standard Left Atrial Appendage Atriclip 40mm [id number] - [id number] Implanted:Qty: 1 on 03/14/2024 by Cas Taylor MD at [facility] Heart [employer]ure [id number] / / [id number] Procedures Procedure Name Priority Date/Time Associated Diagnosis Comments EGFR STAT 01/07/2025 8:08 AM CDT Chronic lymphoid leukemia, without mention of having achieved remission(204.10) (HCC) COMPREHENSIVE METABOLIC PANEL STAT 01/07/2025 8:08 AM CDT Chronic lymphoid leukemia, without mention of having achieved remission(204.10) (HCC) LACTATE DEHYDROGENASE Routine 01/07/2025 8:08 AM CDT Chronic lymphoid leukemia, without mention of having achieved remission(204.10) (HCC) DIFFERENTIAL AUTO Routine 01/07/2025 8:0 5 AM CDT Chronic lymphoid leukemia, without mention of having achieved remission(204.10) (HCC) BETA 2 MICROGLOBULIN SERUM Routine 01/07/2025 8:05 AM CDT Chronic lymphoid leukemia, without mention of having achieved remission(204.10) (HCC) CBC WITH AUTO DIFFERENTIAL Routine 01/07/2025 8:05 AM CDT Chronic lymphoid leukemia, without mention of having achieved remission(204.10) (HCC) DIFFERENTIAL AUTO Routine 12/10/2024 8:3 0 AM BILLING ANALYST CLL (chronic lymphocytic leukemia) (HCC) CBC WITH AUTO DIFFERENTIAL Routine 12/10/2024 8:30 AM BILLING ANALYST CLL (chronic lymphocytic leukemia) (HCC) EGFR STAT 12/10/2024 8:10 AM BILLING ANALYST Chronic lymphoid leukemia, without mention of having achieved remission(204.10) (HCC) BETA 2 MICROGLOBULIN SERUM Routine 12/10/2024 8:10 AM BILLING ANALYST Chronic lymphoid leukemia, without mention of having achieved remission(204.10) (HCC) COMPREHENSIVE METABOLIC PANEL STAT 12/10/2024 8:10 AM BILLING ANALYST Chronic lymphoid leukemia, without mention of having achieved remission(204.10) (HCC) LACTATE DEHYDROGENASE Routine 12/10/2024 8:10 AM BILLING ANALYST Chronic lymphoid leukemia, without mention of having achieved remission(204.10) (HCC) EGFR STAT 11/26/2024 7:51 AM BILLING ANALYST Chronic lymphoid leukemia, without mention of having achieved remission(204.10) (HCC) DIFFERENTIAL AUTO STAT 11/26/2024 7:5 1 AM BILLING ANALYST Chronic lymphoid leukemia, without mention of having achieved remission(204.10) (HCC) CBC WITH AUTO DIFFERENTIAL STAT 11/26/2024 7:51 AM BILLING ANALYST Chronic lymphoid leukemia, without mention of having achieved remission(204.10) (HCC) COMPREHENSIVE METABOLIC PANEL STAT 11/26/2024 7:51 AM BILLING ANALYST Chronic lymphoid leukemia, without mention of having achieved remission(204.10) (HCC) PHOSPHORUS STAT 11/26/2024 7:51 AM BILLING ANALYST Chronic lymphoid leukemia, without mention of having achieved remission(204.10) (HCC) URIC ACID STAT 11/26/2024 7:51 AM BILLING ANALYST Chronic lymphoid leukemia, without mention of having achieved remission(204.10) (HCC) EGFR STAT 11/19/2024 10:21 AM BILLING ANALYST Chronic lymphoid leukemia, without mention of having achieved remission(204.10) (HCC) DIFFERENTIAL AUTO STAT 11/19/2024 10: 21 AM BILLING ANALYST Chronic lymphoid leukemia, without mention of having achieved remission(204.10) (HCC) URIC ACID STAT 11/19/2024 10:21 AM BILLING ANALYST Chronic lymphoid leukemia, without mention of having achieved remission(204.10) (HCC) PHOSPHORUS STAT 11/19/2024 10:21 AM BILLING ANALYST Chronic lymphoid leukemia, without mention of having achieved remission(204.10) (HCC) COMPREHENSIVE METABOLIC PANEL STAT 11/19/2024 10:21 AM BILLING ANALYST Chronic lymphoid leukemia, without mention of having achieved remission(204.10) (HCC) CBC WITH AUTO DIFFERENTIAL STAT 11/19/2024 10:21 AM BILLING ANALYST Chronic lymphoid leukemia, without mention of having achieved remission(204.10) (HCC) EGFR STAT 11/13/2024 8:21 AM BILLING ANALYST Chronic lymphoid leukemia, without mention of having achieved remission(204.10) (HCC) URIC ACID STAT 11/13/2024 8:21 AM BILLING ANALYST Chronic lymphoid leukemia, without mention of having achieved remission(204.10) (HCC) PHOSPHORUS STAT 11/13/2024 8:21 AM BILLING ANALYST Chronic lymphoid leukemia, without mention of having achieved remission(204.10) (HCC) COMPREHENSIVE METABOLIC PANEL STAT 11/13/2024 8:21 AM BILLING ANALYST Chronic lymphoid leukemia, without mention of having achieved remission(204.10) (HCC) EGFR STAT 11/12/2024 3:30 PM BILLING ANALYST Chronic lymphoid leukemia, without mention of having achieved remission(204.10) (HCC) URIC ACID STAT 11/12/2024 3:30 PM BILLING ANALYST Chronic lymphoid leukemia, without mention of having achieved remission(204.10) (HCC) PHOSPHORUS STAT 11/12/2024 3:30 PM BILLING ANALYST Chronic lymphoid leukemia, without mention of having achieved remission(204.10) (HCC) BASIC METABOLIC PANEL STAT 11/12/2024 3:30 PM BILLING ANALYST Chronic lymphoid leukemia, without mention of having achieved remission(204.10) (HCC) IRON PROFILE W/ IBC STAT 11/12/2024 7 :48 AM BILLING ANALYST Chronic lymphoid leukemia, without mention of having achieved remission(204.10) (HCC) FERRITIN STAT 11/12/2024 7:48 AM BILLING ANALYST Chronic lymphoid leukemia, without mention of having achieved remission(204.10) (HCC) EGFR STAT 11/12/2024 7:48 AM BILLING ANALYST Chronic lymphoid leukemia, without mention of having achieved remission(204.10) (HCC) DIFFERENTIAL AUTO STAT 11/12/2024 7:4 8 AM BILLING ANALYST Chronic lymphoid leukemia, without mention of having achieved remission(204.10) (HCC) CBC WITH AUTO DIFFERENTIAL STAT 11/12/2024 7:48 AM BILLING ANALYST Chronic lymphoid leukemia, without mention of having achieved remission(204.10) (HCC) COMPREHENSIVE METABOLIC PANEL STAT 11/12/2024 7:48 AM BILLING ANALYST Chronic lymphoid leukemia, without mention of having achieved remission(204.10) (HCC) LACTATE DEHYDROGENASE Routine 11/12/2024 7:48 AM BILLING ANALYST Chronic lymphoid leukemia, without mention of having achieved remission(204.10) (HCC) PHOSPHORUS STAT 11/12/2024 7:48 AM BILLING ANALYST Chronic lymphoid leukemia, without mention of having achieved remission(204.10) (HCC) URIC ACID STAT 11/12/2024 7:48 AM BILLING ANALYST Chronic lymphoid leukemia, without mention of having achieved remission(204.10) (HCC) EGFR STAT 11/06/2024 9:10 AM BILLING ANALYST Chronic lymphoid leukemia, without mention of having achieved remission(204.10) (HCC) DIFFERENTIAL AUTO STAT 11/06/2024 9:1 0 AM BILLING ANALYST Chronic lymphoid leukemia, without mention of having achieved remission(204.10) (HCC) LACTATE DEHYDROGENASE Routine 11/06/2024 9:10 AM BILLING ANALYST Chronic lymphoid leukemia, without mention of having achieved remission(204.10) (HCC) BETA 2 MICROGLOBULIN SERUM Routine 11/06/2024 9:10 AM BILLING ANALYST Chronic lymphoid leukemia, without mention of having achieved remission(204.10) (HCC) CBC WITH AUTO DIFFERENTIAL STAT 11/06/2024 9:10 AM BILLING ANALYST Chronic lymphoid leukemia, without mention of having achieved remission(204.10) (HCC) COMPREHENSIVE METABOLIC PANEL STAT 11/06/2024 9:10 AM BILLING ANALYST Chronic lymphoid leukemia, without mention of having achieved remission(204.10) (HCC) PHOSPHORUS STAT 11/06/2024 9:10 AM BILLING ANALYST Chronic lymphoid leukemia, without mention of having achieved remission(204.10) (HCC) URIC ACID STAT 11/06/2024 9:10 AM BILLING ANALYST Chronic lymphoid leukemia, without mention of having achieved remission(204.10) (HCC) EGFR STAT 11/05/2024 2:43 PM BILLING ANALYST Chronic lymphoid leukemia, without mention of having achieved remission(204.10) (HCC) BASIC METABOLIC PANEL STAT 11/05/2024 2:43 PM BILLING ANALYST Chronic lymphoid leukemia, without mention of having achieved remission(204.10) (HCC) PHOSPHORUS STAT 11/05/2024 2:43 PM BILLING ANALYST Chronic lymphoid leukemia, without mention of having achieved remission(204.10) (HCC) URIC ACID STAT 11/05/2024 2:43 PM BILLING ANALYST Chronic lymphoid leukemia, without mention of having achieved remission(204.10) (HCC) EGFR STAT 11/05/2024 8:24 AM BILLING ANALYST Chronic lymphoid leukemia, without mention of having achieved remission(204.10) (HCC) DIFFERENTIAL AUTO STAT 11/05/2024 8:2 4 AM BILLING ANALYST Chronic lymphoid leukemia, without mention of having achieved remission(204.10) (HCC) CBC WITH AUTO DIFFERENTIAL STAT 11/05/2024 8:24 AM BILLING ANALYST Chronic lymphoid leukemia, without mention of having achieved remission(204.10) (HCC) COMPREHENSIVE METABOLIC PANEL STAT 11/05/2024 8:24 AM BILLING ANALYST Chronic lymphoid leukemia, without mention of having achieved remission(204.10) (HCC) PHOSPHORUS STAT 11/05/2024 8:24 AM BILLING ANALYST Chronic lymphoid leukemia, without mention of having achieved remission(204.10) (HCC) URIC ACID STAT 11/05/2024 8:24 AM BILLING ANALYST Chronic lymphoid leukemia, without mention of having achieved remission(204.10) (HCC) LACTATE DEHYDROGENASE Routine 11/05/2024 8:24 AM BILLING ANALYST Chronic lymphoid leukemia, without mention of having achieved remission(204.10) (HCC) CT CHEST ABDOMEN PELVIS W CONTRAST Schedule JAZMIN, Read JAZMIN (Appt Today, Awaiting Results) 11/05/2024 7:50 AM BILLING ANALYST CLL (chronic lymphocytic leukemia) (HCC) DIFFERENTIAL AUTO STAT 10/29/2024 8:0 7 AM BILLING ANALYST Chronic lymphoid leukemia, without mention of having achieved remission(204.10) (HCC) CBC WITH AUTO DIFFERENTIAL STAT 10/29/2024 8:07 AM BILLING ANALYST Chronic lymphoid leukemia, without mention of having achieved remission(204.10) (HCC) EGFR Routine 10/22/2024 8:20 AM BILLING ANALYST CAD in [place] artery DIFFERENTIAL AUTO STAT 10/22/2024 8:2 0 AM BILLING ANALYST Chronic lymphoid leukemia, without mention of having achieved remission(204.10) (HCC) COMPREHENSIVE METABOLIC PANEL Routine 10/22/2024 8:20 AM BILLING ANALYST CAD in [place] artery CBC WITH AUTO DIFFERENTIAL STAT 10/22/2024 8:20 AM BILLING ANALYST Chronic lymphoid leukemia, without mention of having achieved remission(204.10) (HCC) EGFR STAT 10/16/2024 4:56 PM BILLING ANALYST Chronic lymphoid leukemia, without mention of having achieved remission(204.10) (HCC) BASIC METABOLIC PANEL STAT 10/16/2024 4:56 PM BILLING ANALYST Chronic lymphoid leukemia, without mention of having achieved remission(204.10) (HCC) URIC ACID STAT 10/16/2024 4:56 PM BILLING ANALYST Chronic lymphoid leukemia, without mention of having achieved remission(204.10) (HCC) EGFR STAT 10/16/2024 9:07 AM BILLING ANALYST Chronic lymphoid leukemia, without mention of having achieved remission(204.10) (HCC) CBC WITHOUT DIFFERENTIAL Routine 10/16/2024 9:07 AM BILLING ANALYST CAD in [place] artery LACTATE DEHYDROGENASE STAT 10/16/2024 9:07 AM BILLING ANALYST Chronic lymphoid leukemia, without mention of having achieved remission(204.10) (HCC) URIC ACID STAT 10/16/2024 9:07 AM BILLING ANALYST Chronic lymphoid leukemia, without mention of having achieved remission(204.10) (HCC) PHOSPHORUS STAT 10/16/2024 9:07 AM BILLING ANALYST Chronic lymphoid leukemia, without mention of having achieved remission(204.10) (HCC) BASIC METABOLIC PANEL STAT 10/16/2024 9:07 AM BILLING ANALYST Chronic lymphoid leukemia, without mention of having achieved remission(204.10) (HCC) HEPATITIS C ANTIBODY Routine 10/15/2024 9:53 AM BILLING ANALYST CLL (chronic lymphocytic leukemia) (HCC) HEPATITIS B SURFACE ANTIGEN Routine 10/15/2024 9:53 AM BILLING ANALYST CLL (chronic lymphocytic leukemia) (HCC) HEPATITIS B SURFACE ANTIBODY (IMMUNE STATUS) Routine 10/15/2024 9:53 AM BILLING ANALYST CLL (chronic lymphocytic leukemia) (HCC) HEPATITIS B CORE ANTIBODY, TOTAL Routine 10/15/2024 9:53 AM BILLING ANALYST CLL (chronic lymphocytic leukemia) (HCC) EGFR STAT 10/15/2024 7:37 AM BILLING ANALYST Chronic lymphoid leukemia, without mention of having achieved remission(204.10) (HCC) MANUAL DIFFERENTIAL Routine 10/15/2024 7 :37 AM BILLING ANALYST Chronic lymphoid leukemia, without mention of having achieved remission(204.10) (HCC) CBC WITH AUTO DIFFERENTIAL Routine 10/15/2024 7:37 AM BILLING ANALYST Chronic lymphoid leukemia, without mention of having achieved remission(204.10) (HCC) COMPREHENSIVE METABOLIC PANEL STAT 10/15/2024 7:37 AM BILLING ANALYST Chronic lymphoid leukemia, without mention of having achieved remission(204.10) (HCC) PHOSPHORUS STAT 10/15/2024 7:37 AM BILLING ANALYST Chronic lymphoid leukemia, without mention of having achieved remission(204.10) (HCC) URIC ACID STAT 10/15/2024 7:37 AM BILLING ANALYST Chronic lymphoid leukemia, without mention of having achieved remission(204.10) (HCC) LACTATE DEHYDROGENASE Routine 10/15/2024 7:37 AM BILLING ANALYST Chronic lymphoid leukemia, without mention of having achieved remission(204.10) (HCC) from Last 3 Months Results * (ABNORMAL) eGFR (01/07/2025 8:08 AM CDT) eGFR 46(L) >=60 mL/min/1. 73 m2 Comment: Interpretive Data Reference Interval Normal >/= 90 mL/min/1.73m2 Mildly decreased* 60 - 89 mL/min/1.73m2 Mildly to moderately decreased 45 - 59 mL/min/1.73m2 Moderately to severely decreased 30 - 44 mL/min/1.73m2 Severely decreased 15 - 29 mL/min/1.73m2 Kidney Failure < 15 mL/min/1.73m2 *Relative to young adult level Estimated glomerular filtration rate is determined by the 2020 CKD-EPI equation recommended by the National Kidney Foundation (A Unifying Approach to GFR Estimation: Recommendations of the NKF-ASK Task Force on Reassessing the Inclusion of Race in Diagnosing Kidney Disease, JASN 2020). The CKD-EPI equation should not be used for patients with unstable renal function and has not been validated in children and those over 70. Current interpretive data was last reviewed 2021. Blood 01/07/2025 8:08 AM CDT 01/07/2025 8:20 AM CDT Amilcar Sarabia MD LAB BLOOD ORDERABLES Final R esult [facility] Department [place] [address] * (ABNORMAL) Lactate dehydrogenase (LD) (01/07/2025 8:08 AM CDT) Lactate dehydrogenase (LDH) 281(H) 100 - 250 Units/L Blood 01/07/2025 8:08 AM CDT 01/07/2025 8:20 AM CDT us Amilcar Sarabia MD LAB BLOOD ORDERABLES Final R esult [facility] Department [place] [address] * (ABNORMAL) Comprehensive metabolic panel (01/07/2025 8:08 AM CDT) Sodium 144 135 - 145 mmol/L Potassium, pl 4.1 3.3 - 4.9 mmol/L [facility] Chloride 110 97 - 110 mmol/L [facility] CO2 24 22 - 32 mmol/L [facility] Anion gap 10 2 - 15 mmol/L [facility] BUN 41(H) 6 - 25 mg/dL [facility] Creatinine 1.55(H) 0.80 - 1.30 mg/dL [facility] Glucose 115 70 - 199 mg/dL [facility] Comment: Interpretive Data Fasting glucose >/= 126 mg/dl is diagnostic for diabetes. Fasting is defined as no caloric intake for at least 8 hours. Fasting glucose between 100 mg/dl to 125 mg/dl is diagnostic of prediabetes. In a patient with classic symptoms of hyperglycemia or hyperglycemic crisis, a random glucose >/= 200 mg/dl is diagnostic for diabetes. In the absence of unequivocal hyperglycemia, results should be confirmed by repeat testing. The classification and Diagnosis of Diabetes Diabetes Care 2021; 46: S19-S40. Current interpretive data was last revised 2022. Calcium 9.6 8.5 - 10.3 mg/dL [facility] Bilirubin, total 0.5 0.1 - 1.2 mg/dL [facility] Protein, pl 7.0 6.5 - 8.5 g/dL [facility] Albumin 4.3 3.5 - 5.0 g/dL [facility] Alk phos 120 40 - 130 Units/L [facility] ALT 39 7 - 55 Units/L [facility] AST 48 10 - 50 Units/L [facility] Comment:Hemolyzed; result ma y be falsely elevated Blood 01/07/2025 8:08 AM CDT 01/07/2025 8:20 AM CDT Amilcar Sarabia MD LAB BLOOD ORDERABLES Final R esult [facility] Department [place] [address] * (ABNORMAL) Differential, auto (01/07/2025 8:05 AM CDT) Neutrophil abs 1.08(L) 1.50 - 6.50 K/cumm Comment:Testing performed by : [facility], [address] [place], [place] [id number] Lymphocyte abs 0.41(L) 0.80 - 3.30 K/cumm [facility] Comment:Testing performed by : [facility], [address] [place] [address] Monocyte abs 0.31 0.20 - 0.80 K/cumm [facility] Comment:Testing performed by : [facility], [address] [place], [place] [phone] Eosinophil abs 0.04 0.00 - 0.50 K/cumm [facility] Comment:Testing performed by : [facility], [address] [place], [place] [phone] Basophil abs 0.02 0.00 - 0.10 K/cumm [facility] Comment:Testing performed by : [facility], [address] [place], [place] [phone] Neutrophil pct 57.9 % CERNER BJ Comment: Interpretive Data Percent cell count reference ranges are not reported, since discordance with absolute values may lead to misinterpretation of CBC data. Current Interpretive Data was last revised on 2018. Testing performed by: [facility], [address] [place] [phone] Lymphocyte pct 22.3 % [facility]ER BJ Comment: Interpretive Data Percent cell count reference ranges are not reported, since discordance with absolute values may lead to misinterpretation of CBC data. Current Interpretive Data was last revised on 2018. Testing performed by: [facility], [address] [place] [phone] Monocyte pct 16.4 % [facility] Comment: Interpretive Data Percent cell count reference ranges are not reported, since discordance with absolute values may lead to misinterpretation of CBC data. Current Interpretive Data was last revised on 2018. Testing performed by: [facility], [address] [place], [place] [phone] Eosinophil pct 2.2 % [facility] Comment: Interpretive Data Percent cell count reference ranges are not reported, since discordance with absolute values may lead to misinterpretation of CBC data. Current Interpretive Data was last revised on 2018. Testing performed by: [facility], [address] [place], [place] [phone] Basophil pct 1.2 % [facility] Comment: Interpretive Data Percent cell count reference ranges are not reported, since discordance with absolute values may lead to misinterpretation of CBC data. Current Interpretive Data was last revised on 2018. Testing performed by: [facility], [address] [place] [phone] Blood 01/07/2025 8:05 AM CDT 01/07/2025 8:20 AM CDT us Amilcar Sarabia MD LAB BLOOD ORDERABLES Final R esult [facility] Department [place] [address] * (ABNORMAL) CBC with auto differential (01/07/2025 8:05 AM CDT) WBC 1.86(L) 3.80 - 9.90 K/cumm Comment:Testing performed by : [facility], [address] [place] [phone] Hgb 11.7(L) 13.0 - 17.5 g/dL [facility] Comment:Testing performed by : [facility], [address] [place] [address] Hct 35.4(L) 38.9 - 50.3 % CERNER BJ Comment:Testing performed by : [facility], [address] [place], [place] [phone] Plt 106(L) 150 - 400 K/cumm CERNER BJ Comment:Testing performed by : [facility], [address] [place], [place] [phone] MPV 8.0 6.8 - 10.4 fL [facility]ER BJ Comment:Testing performed by : [facility], [address] [place], [place] [phone] RBC 4.25(L) 4.30 - 5.80 M/cumm CERNER BJ Comment:Testing performed by : [facility], [address] [place], [place] [phone] MCV 83.3 81.3 - 96.4 fL [facility] BJ Comment:Testing performed by : [facility], [address] [place], [place] [phone] MCH 27.5 27.1 - 33.3 pg [facility] BJ Comment:Testing performed by : [facility], [address] [place] [address] MCHC 33.0 32.3 - 35.7 g/dL [facility] Comment:Testing performed by : [facility], [address] [place] [address] RDW CV 23.9(H) 11.1 - 14.9 % [facility] BJ Comment:Testing performed by : [facility], [address] [place] [address] NRBC abs 0.00 0.00 - 0.01 K/cumm [facility]J Comment:Testing performed by : [facility], [address] [place] [address] Blood 01/07/2025 8:05 AM CDT 01/07/2025 8:20 AM CDT Amilcar Sarabia MD LAB BLOOD ORDERABLES Final R esult Performing Organization Address City/State/[facility] Co de Phone Number CERNER [facility] Department [place] [address] * (ABNORMAL) Beta 2 microglobulin, serum (01/07/2025 8:05 AM CDT) Beta 2 Microglobulin, Serum 3.80(H) 1.00 - 2.50 mg/L Comment: Interpretive Data The Tatyana Beta-2 microglobulin assay procedure was used. Results from different manufacturers or methods may not be comparable. Serial testing should be performed using the same method. Blood 01/07/2025 8:05 AM CDT 01/07/2025 8:35 AM CDT Amilcar Sarabia MD LAB BLOOD ORDERABLES Final R esult Performing Organization Address [facility] Co de Phone Number [facility] Department [place] [address] * (ABNORMAL) Differential, auto (12/10/2024 8:30 AM BILLING ANALYST) Pathologist [facility] Neutrophil abs 2.1 1.5 - 6.5 K/cumm Comment:Testing performed by : [facility], [address] [place] [phone] Lymphocyte abs 0.5(L) 0.8 - 3.3 K/cumm CERNER BJ Comment:Testing performed by : [facility], [address] [place] [phone] Monocyte abs 0.4 0.2 - 0.8 K/cumm CERNER BJ Comment:Testing performed by : [facility], [address] [place] [phone] Eosinophil abs 0.0 0.0 - 0.5 K/cumm CERNER BJ Comment:Testing performed by : [facility], [address] [place] [phone] Basophil abs 0.0 0.0 - 0.1 K/cumm C[facility] BJ Comment:Testing performed by : [facility], [address] [place] [phone] Neutrophil pct 67.2 % CERNER BJ Comment: Interpretive Data Percent cell count reference ranges are not reported, since discordance with absolute values may lead to misinterpretation of CBC data. Current Interpretive Data was last revised on 2018. Testing performed by: [facility], [address] [place] [phone] Lymphocyte pct 17.3 % [facility]ER[facility] Comment: Interpretive Data Percent cell count reference ranges are not reported, since discordance with absolute values may lead to misinterpretation of CBC data. Current Interpretive Data was last revised on 2018. Testing performed by: [facility], [address] [place] [phone] Monocyte pct 13.5 % CERNER BLOSSOM Comment: Interpretive Data Percent cell count reference ranges are not reported, since discordance with absolute values may lead to misinterpretation of CBC data. Current Interpretive Data was last revised on 2018. Testing performed by: [facility], [address] [place] [phone] Eosinophil pct 1.4 % [facility]ER[facility] CERRATO Comment: Interpretive Data Percent cell count reference ranges are not reported, since discordance with absolute values may lead to misinterpretation of CBC data. Current Interpretive Data was last revised on 2018. Testing performed by: [facility], [address] [place] [phone] Basophil pct 0.6 % [facility]ER[place] CERRATO Comment: Interpretive Data Percent cell count reference ranges are not reported, since discordance with absolute values may lead to misinterpretation of CBC data. Current Interpretive Data was last revised on 2018. Testing performed by: [facility], [address] [place] [phone] Blood 12/10/2024 8:30 AM BILLING ANALYST 12/10/2024 8:37 AM BILLING ANALYST Amilcar Sarabia MD LAB BLOOD ORDERABLES Final R esult [facility] Department [place] [address] * (ABNORMAL) CBC with auto differential (12/10/2024 8:30 AM BILLING ANALYST) WBC 3.1(L) 3.8 - 9.9 K/cumm Comment:Testing performed by : [facility], [address] [place] [address] Hgb 10.4(L) 13.0 - 17.5 g/dL CERNER BJ Comment:Testing performed by : [facility], [address] [place] [address] Hct 32.7(L) 38.9 - 50.3 % CERNER BJ Comment:Testing performed by : [facility], [address] [place], [place] [phone] Plt 132(L) 150 - 400 K/cumm CERNER BJ Comment:Testing performed by : [facility], [address] [place] [address] MPV 8.2 6.8 - 10.4 fL CERNER BJ Comment:Testing performed by : [facility], [address] [place] [address] RBC 4.17(L) 4.30 - 5.80 M/cumm CERNER BJ Comment:Testing performed by : [facility], [address] [place] [address] MCV 78.3(L) 81.3 - 96.4 fL CERNER BJ Comment:Testing performed by : [facility], [address] [place] [address] MCH 25.0(L) 27.1 - 33.3 pg CERNER BJ Comment:Testing performed by : [facility], [address] [place] [address] MCHC 32.0(L) 32.3 - 35.7 g/dL [facility] Comment:Testing performed by : [facility], [address] [place] [address] RDW CV 18.1(H) 11.1 - 14.9 % [facility] Comment:Testing performed by : [facility], [address] [place] [phone] NRBC abs 0.00 0.00 - 0.01 K/cumm [facility] Comment:Testing performed by : [facility], [address] [place] [phone] Blood 12/10/2024 8:30 AM BILLING ANALYST 12/10/2024 8:37 AM BILLING ANALYST us Amilcar Sarabia MD LAB BLOOD ORDERABLES Final R esult Performing Organization Address City/[facility]/ZIP Co de Phone Number [facility] Department [place] [address] * (ABNORMAL) eGFR (12/10/2024 8:10 AM BILLING ANALYST) eGFR 41(L) >=60 mL/min/1. 73 m2 Comment: Interpretive Data Reference Interval Normal >/= 90 mL/min/1.73m2 Mildly decreased* 60 - 89 mL/min/1.73m2 Mildly to moderately decreased 45 - 59 mL/min/1.73m2 Moderately to severely decreased 30 - 44 mL/min/1.73m2 Severely decreased 15 - 29 mL/min/1.73m2 Kidney Failure < 15 mL/min/1.73m2 *Relative to young adult level Estimated glomerular filtration rate is determined by the 2020 CKD-EPI equation recommended by the National Kidney Foundation (A Unifying Approach to GFR Estimation: Recommendations of the NKF-ASK Task Force on Reassessing the Inclusion of Race in Diagnosing Kidney Disease, JASN 2020). The CKD-EPI equation should not be used for patients with unstable renal function and has not been validated in children and those over 70. Current interpretive data was last reviewed 2021. Blood 12/10/2024 8:10 AM BILLING ANALYST 12/10/2024 8:16 AM BILLING ANALYST us Amilcar Sarabia MD LAB BLOOD ORDERABLES Final R esult [facility] Department [place] [address] * Lactate dehydrogenase (LD) (12/10/2024 8:10 AM BILLING ANALYST) [facility] Lactate dehydrogenase (LDH) 186 100 - 250 Units/L Blood 12/10/2024 8:10 AM BILLING ANALYST 12/10/2024 8:16 AM BILLING ANALYST Amilcar Sarabia MD LAB BLOOD ORDERABLES Final R esult Performing Organization Address [facility] [place] [address] * (ABNORMAL) Beta 2 microglobulin, serum (12/10/2024 8:10 AM BILLING ANALYST) [facility] Beta 2 Microglobulin, Serum 4.40(H) 1.00 - 2.50 mg/L Comment: Interpretive Data The Tatyana Beta-2 microglobulin assay procedure was used. Results from different manufacturers or methods may not be comparable. Serial testing should be performed using the same method. Blood 12/10/2024 8:10 AM BILLING ANALYST 12/10/2024 8:45 AM BILLING ANALYST Amilcar Sarabia MD LAB BLOOD ORDERABLES Final R esult Performing Organization Address [facility] Co de Phone Number [facility] [facility] Department [place] [address] * (ABNORMAL) Comprehensive metabolic panel (12/10/2024 8:10 AM BILLING ANALYST) [facility] Sodium 141 135 - 145 mmol/L Potassium, pl 4.3 3.3 - 4.9 mmol/L [facility] Chloride 105 97 - 110 mmol/L [facility] CO2 28 22 - 32 mmol/L [facility] Anion gap 8 2 - 15 mmol/L [facility] BUN 33(H) 6 - 25 mg/dL [facility] Creatinine 1.71(H) 0.80 - 1.30 mg/dL [facility] Glucose 134 70 - 199 mg/dL [facility] Comment: Interpretive Data Fasting glucose >/= 126 mg/dl is diagnostic for diabetes. Fasting is defined as no caloric intake for at least 8 hours. Fasting glucose between 100 mg/dl to 125 mg/dl is diagnostic of prediabetes. In a patient with classic symptoms of hyperglycemia or hyperglycemic crisis, a random glucose >/= 200 mg/dl is diagnostic for diabetes. In the absence of unequivocal hyperglycemia, results should be confirmed by repeat testing. The classification and Diagnosis of Diabetes Diabetes Care 2021; 46: S19-S40. Current interpretive data was last revised 2022. Calcium 9.9 8.5 - 10.3 mg/dL [facility] Bilirubin, total 0.7 0.1 - 1.2 mg/dL [facility] Protein, pl 7.5 6.5 - 8.5 g/dL [facility] Albumin 4.5 3.5 - 5.0 g/dL [facility] Alk phos 95 40 - 130 Units/L [facility] ALT 17 7 - 55 Units/L [facility] AST 28 10 - 50 Units/L [facility] Blood 12/10/2024 8:10 AM BILLING ANALYST 12/10/2024 8:16 AM BILLING ANALYST Amilcar Sarabia MD LAB BLOOD ORDERABLES Final R esult [facility] Department [place] [address] * (ABNORMAL) eGFR (11/26/2024 7:51 AM BILLING ANALYST) eGFR 44(L) >=60 mL/min/1. 73 m2 Comment: Interpretive Data Reference Interval Normal >/= 90 mL/min/1.73m2 Mildly decreased* 60 - 89 mL/min/1.73m2 Mildly to moderately decreased 45 - 59 mL/min/1.73m2 Moderately to severely decreased 30 - 44 mL/min/1.73m2 Severely decreased 15 - 29 mL/min/1.73m2 Kidney Failure < 15 mL/min/1.73m2 *Relative to young adult level Estimated glomerular filtration rate is determined by the 2020 CKD-EPI equation recommended by the National Kidney Foundation (A Unifying Approach to GFR Estimation: Recommendations of the NKF-ASK Task Force on Reassessing the Inclusion of Race in Diagnosing Kidney Disease, JASN 2020). The CKD-EPI equation should not be used for patients with unstable renal function and has not been validated in children and those over 70. Current interpretive data was last reviewed 2021. Blood 11/26/2024 7:51 AM BILLING ANALYST 11/26/2024 8:25 AM BILLING ANALYST us Jolie Iraheta NP LAB BLOOD ORDRuiz CHI Final Result [facility] ([place]) 1 [facility] Department [place] [address] * (ABNORMAL) Differential, auto (11/26/2024 7:51 AM BILLING ANALYST) Neutrophil abs 1.8 1.5 - 6.5 K/cumm Imm gran abs 0.0 0.0 - 0.1 K/cumm [facility] ([place]) Lymphocyte abs 0.5(L) 0.8 - 3.3 K/cumm [facility] ([place]) Monocyte abs 0.3 0.2 - 0.8 K/cumm [facility] ([place]) Eosinophil abs 0.1 0.0 - 0.5 K/cumm [facility] ([place]) Basophil abs 0.0 0.0 - 0.1 K/cumm [facility] ([place]) Neutrophil pct 64.6 % [facility] ([place]ANICE) Comment: Interpretive Data Percent cell count reference ranges are not reported, since discordance with absolute values may lead to misinterpretation of CBC data. Current Interpretive Data was last revised on 2018. Imm gran pct 0.4 % [facility] ([place]) Comment: Interpretive Data Percent cell count reference ranges are not reported, since discordance with absolute values may lead to misinterpretation of CBC data. Current Interpretive Data was last revised on 2018. Lymphocyte pct 19.3 % [facility] ([place]ANICE) Comment: Interpretive Data Percent cell count reference ranges are not reported, since discordance with absolute values may lead to misinterpretation of CBC data. Current Interpretive Data was last revised on 2018. Monocyte pct 10.6 % [facility] ([place]) Comment: Interpretive Data Percent cell count reference ranges are not reported, since discordance with absolute values may lead to misinterpretation of CBC data. Current Interpretive Data was last revised on 2018. Eosinophil pct 4.7 % [facility] ([place]ICE) Comment: Interpretive Data Percent cell count reference ranges are not reported, since discordance with absolute values may lead to misinterpretation of CBC data. Current Interpretive Data was last revised on 2018. Basophil pct 0.4 % [facility] ([place]) Comment: Interpretive Data Percent cell count reference ranges are not reported, since discordance with absolute values may lead to misinterpretation of CBC data. Current Interpretive Data was last revised on 2018. Blood 11/26/2024 7:51 AM BILLING ANALYST 11/26/2024 8:25 AM BILLING ANALYST Jolie Iraheta NP LAB BLOOD LAUREL [facility]I Final Result [facility] ([place]) 1 [facility] Department [place] [address] * (ABNORMAL) CBC with auto differential (11/26/2024 7:51 AM BILLING ANALYST) WBC 2.7(L) 3.8 - 9.9 K/cumm Hgb 9.6(L) 13.0 - 17.5 g/dL [facility] ([place]) Hct 32.5(L) 38.9 - 50.3 % [facility] ([place]) Plt 100(L) 150 - 400 K/cumm [facility] ([place]) MPV 10.0 9.1 - 12.3 fL [facility] ([place]) RBC 3.87(L) 4.30 - 5.80 M/cumm [facility] ([place]) MCV 84.0 81.3 - 96.4 fL [facility] ([place]) MCH 24.8(L) 27.1 - 33.3 pg [facility] ([place]) MCHC 29.5(L) 32.3 - 35.7 g/dL [facility] ([place]) RDW CV 15.8(H) 11.1 - 14.9 % [facility] ([place]) RDW SD 47.8 35.7 - 48.1 fL [facility] ([place]) NRBC abs 0.00 0.00 - 0.01 K/cumm [facility] ([facility]) Blood 11/26/2024 7:51 AM BILLING ANALYST 11/26/2024 8:25 AM BILLING ANALYST Narrative [facility] ([facility]) - 11/26/2024 8:28 AM BILLING ANALYST To be drawn prior to patient taking venetoclax. [facility] LAB BLOOD ORDE RABLES Final Result [facility] (JANICE) 1 [facility] [place] [address] * Uric acid (11/26/2024 7:51 AM BILLING ANALYST) Uric acid 3.6 3.0 - 8.0 mg/dL Blood 11/26/2024 7:51 AM BILLING ANALYST 11/26/2024 8:25 AM BILLING ANALYST Narrative [facility] ([facility]) - 11/26/2024 8:47 AM BILLING ANALYST To be drawn prior to patient taking venetoclax. [facility] LAB BLOOD ORDE RABLES Final Result [facility] (JANICE) 1 [facility] [place] [address] * Phosphorus (11/26/2024 7:51 AM BILLING ANALYST) Phosphorus, pl 4.0 2.3 - 4.5 mg/dL Blood 11/26/2024 7:51 AM BILLING ANALYST 11/26/2024 8:25 AM BILLING ANALYST Narrative [facility] ([place]) - 11/26/2024 8:47 AM BILLING ANALYST To be drawn prior to patient taking venetoclax. Jolie Smithfer INTELLIGENCE ENGINEER LAB BLOOD LAUREL CHI Final Result [facility] (JANICE) 1 [facility] Department [place] [address] * (ABNORMAL) Comprehensive metabolic panel (11/26/2024 7:51 AM BILLING ANALYST) Sodium 139 135 - 145 mmol/L Potassium, pl 4.3 3.3 - 4.9 mmol/L [facility] ([place]) Chloride 103 97 - 110 mmol/L [facility] ([place]) CO2 27 22 - 32 mmol/L [facility] ([place]) Anion gap 8 2 - 15 mmol/L [facility] ([place]) BUN 30(H) 6 - 25 mg/dL [facility] ([place]) Creatinine 1.60(H) 0.80 - 1.30 mg/dL [facility] ([place]) Glucose 88 70 - 199 mg/dL [facility] ([place]) Comment: Interpretive Data Fasting glucose >/= 126 mg/dl is diagnostic for diabetes. Fasting is defined as no caloric intake for at least 8 hours. Fasting glucose between 100 mg/dl to 125 mg/dl is diagnostic of prediabetes. In a patient with classic symptoms of hyperglycemia or hyperglycemic crisis, a random glucose >/= 200 mg/dl is diagnostic for diabetes. In the absence of unequivocal hyperglycemia, results should be confirmed by repeat testing. The classification and Diagnosis of Diabetes Diabetes Care 2021; 46: S19-S40. Current interpretive data was last revised 2022. Calcium 9.4 8.5 - 10.3 mg/dL [facility] ([place]) Bilirubin, total 0.4 0.1 - 1.2 mg/dL [facility] ([place]) Protein, pl 6.9 6.5 - 8.5 g/dL [facility] ([place]) Albumin 4.3 3.5 - 5.0 g/dL [facility] ([place]) Alk phos 109 40 - 130 Units/L [facility] ([place]) ALT 27 7 - 55 Units/L [facility] ([place]) AST 28 10 - 50 Units/L [facility] ([place]) Blood 11/26/2024 7:51 AM BILLING ANALYST 11/26/2024 8:25 AM BILLING ANALYST Narrative [facility] ([place]) - 11/26/2024 8:47 AM BILLING ANALYST To be drawn prior to patient taking venetoclax. Jolie Iraheta LAB BLOOD ORDE RABMEAGAN Final Result [facility] (JANICE) 1 [facility] Department [place] [address] * (ABNORMAL) eGFR (11/19/2024 10:21 AM BILLING ANALYST) eGFR 42(L) >=60 mL/min/1. 73 m2 Comment: Interpretive Data Reference Interval Normal >/= 90 mL/min/1.73m2 Mildly decreased* 60 - 89 mL/min/1.73m2 Mildly to moderately decreased 45 - 59 mL/min/1.73m2 Moderately to severely decreased 30 - 44 mL/min/1.73m2 Severely decreased 15 - 29 mL/min/1.73m2 Kidney Failure < 15 mL/min/1.73m2 *Relative to young adult level Estimated glomerular filtration rate is determined by the 2020 CKD-EPI equation recommended by the National Kidney Foundation (A Unifying Approach to GFR Estimation: Recommendations of the NKF-ASK Task Force on Reassessing the Inclusion of Race in Diagnosing Kidney Disease, JASN 202). The CKD-EPI equation should not be used for patients with unstable renal function and has not been validated in children and those over 70. Current interpretive data was last reviewed 2021. Blood 11/19/2024 10:2 1 AM BILLING ANALYST 11/19/2024 10:24 AM BILLING ANALYST Jolie Iraheta INTELLIGENCE ENGINEER LAB BLOOD ORDE RABLES Final Result [facility] (JANICE) 1 [facility] Department [place] [address] * (ABNORMAL) Differential, auto (11/19/2024 10:21 AM BILLING ANALYST) Neutrophil abs 2.2 1.5 - 6.5 K/cumm Imm gran abs 0.0 0.0 - 0.1 K/cumm [facility] ([place]) Lymphocyte abs 0.7(L) 0.8 - 3.3 K/cumm [facility] ([place]) Monocyte abs 0.3 0.2 - 0.8 K/cumm [facility] ([place]) Eosinophil abs 0.1 0.0 - 0.5 K/cumm [facility] ([place]) Basophil abs 0.0 0.0 - 0.1 K/cumm [facility] ([place]) Neutrophil pct 65.4 % [facility] ([place]) Comment: Interpretive Data Percent cell count reference ranges are not reported, since discordance with absolute values may lead to misinterpretation of CBC data. Current Interpretive Data was last revised on 2018. Imm gran pct 0.6 % [facility] ([place]) Comment: Interpretive Data Percent cell count reference ranges are not reported, since discordance with absolute values may lead to misinterpretation of CBC data. Current Interpretive Data was last revised on 2018. Lymphocyte pct 22.3 % [facility] ([facility]) Comment: Interpretive Data Percent cell count reference ranges are not reported, since discordance with absolute values may lead to misinterpretation of CBC data. Current Interpretive Data was last revised on 2018. Monocyte pct 8.1 % [facility] ([place]) Comment: Interpretive Data Percent cell count reference ranges are not reported, since discordance with absolute values may lead to misinterpretation of CBC data. Current Interpretive Data was last revised on 2018. Eosinophil pct 3.0 % [facility] ([facility]) Comment: Interpretive Data Percent cell count reference ranges are not reported, since discordance with absolute values may lead to misinterpretation of CBC data. Current Interpretive Data was last revised on 2018. Basophil pct 0.6 % [facility] ([place]) Comment: Interpretive Data Percent cell count reference ranges are not reported, since discordance with absolute values may lead to misinterpretation of CBC data. Current Interpretive Data was last revised on 2018. Blood 11/19/2024 10:2 1 AM BILLING ANALYST 11/19/2024 10:24 AM BILLING ANALYST Jolie Iraheta NP LAB BLOOD ORDRuiz CHI Final Result [facility] ([place]) 1 [facility] Department [place] [address] * (ABNORMAL) CBC with auto differential (11/19/2024 10:21 AM BILLING ANALYST) WBC 3.3(L) 3.8 - 9.9 K/cumm Hgb 10.0(L) 13.0 - 17.5 g/dL [facility] ([place]) Hct 33.4(L) 38.9 - 50.3 % [facility] ([place]) Plt 119(L) 150 - 400 K/cumm [facility] ([place]) MPV 9.3 9.1 - 12.3 fL [facility] ([place]) RBC 3.98(L) 4.30 - 5.80 M/cumm [facility] ([place]) MCV 83.9 81.3 - 96.4 fL [facility] ([place]) MCH 25.1(L) 27.1 - 33.3 pg [facility] ([place]) MCHC 29.9(L) 32.3 - 35.7 g/dL [facility] ([place]) RDW CV 15.5(H) 11.1 - 14.9 % [facility] ([place]) RDW SD 47.5 35.7 - 48.1 fL [facility] ([place]) NRBC abs 0.00 0.00 - 0.01 K/cumm [facility] ([place]) Blood 11/19/2024 10:2 1 AM BILLING ANALYST 11/19/2024 10:24 AM BILLING ANALYST Narrative [facility] ([facility]) - 11/19/2024 10:27 AM BILLING ANALYST To be drawn prior to patient taking venetoclax. Jolie Iraheta LAB BLOOD ORDE RABLES Final Result Performing Organization Address City/[facility]/ZIP Co de Phone Number [facility] ([place]) 1 [facility] [place] [address] * Uric acid (11/19/2024 10:21 AM BILLING ANALYST) Pathologist [facility] Uric acid 3.7 3.0 - 8.0 mg/dL Blood 11/19/2024 10:2 1 AM BILLING ANALYST 11/19/2024 10:24 AM BILLING ANALYST Dain BENZCAROLINA OLIVAS ([place]) - 11/19/2024 10:43 AM BILLING ANALYST To be drawn prior to patient taking venetoclax. Jolie Iraheta LAB BLOOD ORDE RABMEAGAN Final Result Performing Organization Address [facility] Co de Phone Number [facility] ([place]) 1 [facility] [place] [address] * Phosphorus (11/19/2024 10:21 AM BILLING ANALYST) [facility] Phosphorus, pl 4.2 2.3 - 4.5 mg/dL Blood 11/19/2024 10:2 1 AM BILLING ANALYST 11/19/2024 10:24 AM BILLING ANALYST Dain [facility] ([place]) - 11/19/2024 10:43 AM BILLING ANALYST To be drawn prior to patient taking venetoclax. Jolie Natalia Iraheta LAB BLOOD ORDE RABMEAGAN Final Result [facility] OL[facility] ([place]) 1 [place] [address] * (ABNORMAL) Comprehensive metabolic panel (11/19/2024 10:21 AM BILLING ANALYST) [facility] Sodium 141 135 - 145 mmol/L Potassium, pl 4.4 3.3 - 4.9 mmol/L [facility] ([place]) Chloride 105 97 - 110 mmol/L [facility] ([place]) CO2 26 22 - 32 mmol/L [facility] ([place]) Anion gap 10 2 - 15 mmol/L [facility] ([place]) BUN 42(H) 6 - 25 mg/dL [facility] ([place]) Creatinine 1.68(H) 0.80 - 1.30 mg/dL [facility] ([place]) Glucose 128 70 - 199 mg/dL [facility] ([place]) Comment: Interpretive Data Fasting glucose >/= 126 mg/dl is diagnostic for diabetes. Fasting is defined as no caloric intake for at least 8 hours. Fasting glucose between 100 mg/dl to 125 mg/dl is diagnostic of prediabetes. In a patient with classic symptoms of hyperglycemia or hyperglycemic crisis, a random glucose >/= 200 mg/dl is diagnostic for diabetes. In the absence of unequivocal hyperglycemia, results should be confirmed by repeat testing. The classification and Diagnosis of Diabetes Diabetes Care 2021; 46: S19-S40. Current interpretive data was last revised 2022. Calcium 9.7 8.5 - 10.3 mg/dL [facility] ([place]) Bilirubin, total 0.4 0.1 - 1.2 mg/dL [facility] ([place]) Protein, pl 6.9 6.5 - 8.5 g/dL [facility] ([place]) Albumin 4.2 3.5 - 5.0 g/dL [facility] ([place]) Alk phos 104 40 - 130 Units/L [facility] ([place]) ALT 27 7 - 55 Units/L [facility] ([place]) AST 31 10 - 50 Units/L [facility] ([place]) Blood 11/19/2024 10:2 1 AM BILLING ANALYST 11/19/2024 10:24 AM BILLING ANALYST Narrative [facility] ([place]) - 11/19/2024 10:43 AM BILLING ANALYST To be drawn prior to patient taking venetoclax. Jolie Iraheta NP LAB BLOOD ORDRuiz CHI Final Result [facility] ([place]) 1 [facility] [place] [address] * (ABNORMAL) eGFR (11/13/2024 8:21 AM BILLING ANALYST) eGFR 45(L) >=60 mL/min/1. 73 m2 Comment: Interpretive Data Reference Interval Normal >/= 90 mL/min/1.73m2 Mildly decreased* 60 - 89 mL/min/1.73m2 Mildly to moderately decreased 45 - 59 mL/min/1.73m2 Moderately to severely decreased 30 - 44 mL/min/1.73m2 Severely decreased 15 - 29 mL/min/1.73m2 Kidney Failure < 15 mL/min/1.73m2 *Relative to young adult level Estimated glomerular filtration rate is determined by the 2020 CKD-EPI equation recommended by the National Kidney Foundation (A Unifying Approach to GFR Estimation: Recommendations of the NKF-ASK Task Force on Reassessing the Inclusion of Race in Diagnosing Kidney Disease, JASN 2020). The CKD-EPI equation should not be used for patients with unstable renal function and has not been validated in children and those over 70. Current interpretive data was last reviewed 2021. Blood 11/13/2024 8:21 AM BILLING ANALYST 11/13/2024 8:25 AM BILLING ANALYST us Amilcar Sarabia MD LAB BLOOD ORDERABLES Final R esult BEN OneillQUECREEK) 1 [facility] [place] [address] * Uric acid (11/13/2024 8:21 AM BILLING ANALYST) Uric acid 4.1 3.0 - 8.0 mg/dL Blood 11/13/2024 8:21 AM BILLING ANALYST 11/13/2024 8:25 AM BILLING ANALYST Narrative BEN AVERY) - 11/13/2024 8:57 AM BILLING ANALYST To be drawn prior to patient taking venetoclax. us Amilcar Sarabia MD LAB BLOOD ORDERABLES Final R esult Performing Organization Address City/[facility] Co de Phone Number [facility] OL[facility] (JANICE) 1 [facility] Department [place] [address] * Phosphorus (11/13/2024 8:21 AM BILLING ANALYST) Pathologist [facility] Phosphorus, pl 3.8 2.3 - 4.5 mg/dL Blood 11/13/2024 8:21 AM BILLING ANALYST 11/13/2024 8:25 AM BILLING ANALYST Narrative [facility] ([facility]ICE) - 11/13/2024 8:57 AM BILLING ANALYST To be drawn prior to patient taking venetoclax. us Amilcar Sarabia MD LAB BLOOD ORDERABLES Final [facility] Performing Organization Address [facility] Co de Phone Number [facility] OL[facility] (JANICE) 1 [facility] Department [place] [address] * (ABNORMAL) Comprehensive metabolic panel (11/13/2024 8:21 AM BILLING ANALYST) Pathologist [facility] Sodium 139 135 - 145 mmol/L Potassium, pl 4.5 3.3 - 4.9 mmol/L [facility] (JANICE) Chloride 106 97 - 110 mmol/L [facility] ([place]ICE) CO2 21(L) 22 - 32 mmol/L [facility] (JANICE) Anion gap 12 2 - 15 mmol/L [facility] ([place]ICE) BUN 30(H) 6 - 25 mg/dL [facility] (JANICE) Creatinine 1.57(H) 0.80 - 1.30 mg/dL [facility] ([facility] Glucose 145 70 - 199 mg/dL [facility] (JANICE) Comment: Interpretive Data Fasting glucose >/= 126 mg/dl is diagnostic for diabetes. Fasting is defined as no caloric intake for at least 8 hours. Fasting glucose between 100 mg/dl to 125 mg/dl is diagnostic of prediabetes. In a patient with classic symptoms of hyperglycemia or hyperglycemic crisis, a random glucose >/= 200 mg/dl is diagnostic for diabetes. In the absence of unequivocal hyperglycemia, results should be confirmed by repeat testing. The classification and Diagnosis of Diabetes Diabetes Care 202; 46: S19-S40. Current interpretive data was last revised 2022. Calcium 9.1 8.5 - 10.3 mg/dL [facility] ([place]ANICE) Bilirubin, total 0.3 0.1 - 1.2 mg/dL [facility] ([place]) Protein, pl 6.6 6.5 - 8.5 g/dL [facility] ([place]) Albumin 3.8 3.5 - 5.0 g/dL [facility] ([place]ANICE) Alk phos 101 40 - 130 Units/L [facility] ([place]) ALT 22 7 - 55 Units/L [facility] ([place]ICE) AST 36 10 - 50 Units/L [facility] ([facility]ANICE) Comment: Hemolysis present. Results may be affected. Slightly Hemolyzed Specimen Blood 11/13/2024 8:21 AM BILLING ANALYST 11/13/2024 8:25 AM BILLING ANALYST Narrative [facility] (JANICE) - 11/13/2024 8:57 AM BILLING ANALYST To be drawn prior to patient taking venetoclax. us Amilcar Sarabia MD LAB BLOOD ORDERABLES Final R esult [facility] (JANICE) 1 [facility] Department of Laboratories [place], [place] [id number] * (ABNORMAL) eGFR (11/12/2024 3:30 PM BILLING ANALYST) eGFR 39(L) >=60 mL/min/1. 73 m2 Comment: Interpretive Data Reference Interval Normal >/= 90 mL/min/1.73m2 Mildly decreased* 60 - 89 mL/min/1.73m2 Mildly to moderately decreased 45 - 59 mL/min/1.73m2 Moderately to severely decreased 30 - 44 mL/min/1.73m2 Severely decreased 15 - 29 mL/min/1.73m2 Kidney Failure < 15 mL/min/1.73m2 *Relative to young adult level Estimated glomerular filtration rate is determined by the 2020 CKD-EPI equation recommended by the National Kidney Foundation (A Unifying Approach to GFR Estimation: Recommendations of the NKF-ASK Task Force on Reassessing the Inclusion of Race in Diagnosing Kidney Disease, JASN 2020). The CKD-EPI equation should not be used for patients with unstable renal function and has not been validated in children and those over 70. Current interpretive data was last reviewed 2021. Blood 11/12/2024 3:30 PM BILLING ANALYST 11/12/2024 3:30 PM BILLING ANALYST [facility]ur[facility]w [facility] LAB BLOOD ORDE RABLES Final Result Performing Organization Address [facility] Co de Phone Number [facility] [address] * Uric acid (11/12/2024 3:30 PM BILLING ANALYST) Uric acid 4.0 3.0 - 8.0 mg/dL Blood 11/12/2024 3:30 PM BILLING ANALYST 11/12/2024 3:30 PM BILLING ANALYST Narrative [facility] 11/12/2024 3:50 PM BILLING ANALYST To be drawn 6-8 hours after venetoclax dose on day 1. [facility] Natalia Pughselsbryant LAB BLOOD ORDE RABLES Final Result Performing Organization Address [facility] Co de Phone Number [facility] [place] [address] * Phosphorus (11/12/2024 3:30 PM BILLING ANALYST) Pathologist [facility] Phosphorus, pl 3.5 2.3 - 4.5 mg/dL Blood 11/12/2024 3:30 PM BILLING ANALYST 11/12/2024 3:30 PM BILLING ANALYST Narrative [facility] 11/12/2024 3:50 PM BILLING ANALYST To be drawn 6-8 hours after venetoclax dose on day 1. [facility] Natalia [facility]chSt[facility] LAB BLOOD ORDE RABLES Final Result Performing Organization Address City/[facility]/ZIP Co de Phone Number [facility] [place] [address] * (ABNORMAL) Basic metabolic panel (11/12/2024 3:30 PM BILLING ANALYST) Pathologist [facility] Sodium 143 135 - 145 mmol/L Potassium, pl 4.1 3.3 - 4.9 mmol/L [facility] Chloride 109 97 - 110 mmol/L [facility] CO2 30 22 - 32 mmol/L [facility] Anion gap 4 2 - 15 mmol/L [facility] BUN 37(H) 6 - 25 mg/dL [facility] Creatinine 1.77(H) 0.80 - 1.30 mg/dL [facility] Glucose 120 70 - 199 mg/dL [facility] Comment: Interpretive Data Fasting glucose >/= 126 mg/dl is diagnostic for diabetes. Fasting is defined as no caloric intake for at least 8 hours. Fasting glucose between 100 mg/dl to 125 mg/dl is diagnostic of prediabetes. In a patient with classic symptoms of hyperglycemia or hyperglycemic crisis, a random glucose >/= 200 mg/dl is diagnostic for diabetes. In the absence of unequivocal hyperglycemia, results should be confirmed by repeat testing. The classification and Diagnosis of Diabetes Diabetes Care 202; 46: S19-S40. Current interpretive data was last revised 2022. Calcium 8.8 8.5 - 10.3 mg/dL [facility] Blood 11/12/2024 3:30 PM BILLING ANALYST 11/12/2024 3:30 PM BILLING ANALYST Narrative [facility] - 11/12/2024 3:50 PM BILLING ANALYST To be drawn 6-8 hours after venetoclax dose on day 1. Jolie Iraheta NP LAB BLOOD ORDRuiz CHI Final Result [facility] [employer] [facility] Department [place] [address] * (ABNORMAL) eGFR (11/12/2024 7:48 AM BILLING ANALYST) Pathologist [facility] eGFR 34(L) >=60 mL/min/1. 73 m2 Comment: Interpretive Data Reference Interval Normal >/= 90 mL/min/1.73m2 Mildly decreased* 60 - 89 mL/min/1.73m2 Mildly to moderately decreased 45 - 59 mL/min/1.73m2 Moderately to severely decreased 30 - 44 mL/min/1.73m2 Severely decreased 15 - 29 mL/min/1.73m2 Kidney Failure < 15 mL/min/1.73m2 *Relative to young adult level Estimated glomerular filtration rate is determined by the 2020 CKD-EPI equation recommended by the National Kidney Foundation (A Unifying Approach to GFR Estimation: Recommendations of the NKF-ASK Task Force on Reassessing the Inclusion of Race in Diagnosing Kidney Disease, JASN 2020). The CKD-EPI equation should not be used for patients with unstable renal function and has not been validated in children and those over 70. Current interpretive data was last reviewed 2021. Blood 11/12/2024 7:48 AM BILLING ANALYST 11/12/2024 8:04 AM BILLING ANALYST Jolie Iraheta INTELLIGENCE ENGINEER LAB BLOOD LAUREL CHI Final Result [facility] Department of Laboratories [place], [place] [id number] * (ABNORMAL) Differential, auto (11/12/2024 7:48 AM BILLING ANALYST) Neutrophil abs 1.5 1.5 - 6.5 K/cumm Comment:Testing performed by : [facility], [address] [place] [phone] Lymphocyte abs 0.6(L) 0.8 - 3.3 K/cumm [facility] Comment:Testing performed by : [facility], [address] [place] [phone] Monocyte abs 0.3 0.2 - 0.8 K/cumm [facility] Comment:Testing performed by : [facility], [address] [place] [phone] Eosinophil abs 0.1 0.0 - 0.5 K/cumm [facility] Comment:Testing performed by : [facility], [address] [place] [phone] Basophil abs 0.0 0.0 - 0.1 K/cumm [facility] Comment:Testing performed by : [facility], [address] [place] [phone] Neutrophil pct 61.0 % [facility] Comment: Interpretive Data Percent cell count reference ranges are not reported, since discordance with absolute values may lead to misinterpretation of CBC data. Current Interpretive Data was last revised on 2018. Testing performed by: [facility], [address] [place] [phone] Lymphocyte pct 23.0 % [facility] Comment: Interpretive Data Percent cell count reference ranges are not reported, since discordance with absolute values may lead to misinterpretation of CBC data. Current Interpretive Data was last revised on 2018. Testing performed by: [facility], [address] [place] [phone] Monocyte pct 10.9 % [facility] Comment: Interpretive Data Percent cell count reference ranges are not reported, since discordance with absolute values may lead to misinterpretation of CBC data. Current Interpretive Data was last revised on 2018. Testing performed by: [facility], [address] [place] [phone] Eosinophil pct 4.2 % [facility] Comment: Interpretive Data Percent cell count reference ranges are not reported, since discordance with absolute values may lead to misinterpretation of CBC data. Current Interpretive Data was last revised on 2018. Testing performed by: [facility], [address] [place] [phone] Basophil pct 0.9 % [facility] Comment: Interpretive Data Percent cell count reference ranges are not reported, since discordance with absolute values may lead to misinterpretation of CBC data. Current Interpretive Data was last revised on 2018. Testing performed by: [facility], [address] [place] [phone] Blood 11/12/2024 7:48 AM BILLING ANALYST 11/12/2024 7:56 AM BILLING ANALYST Jolie Iraheta NP LAB BLOOD ORDE RABLES Final Result Performing Organization Address City/[facility]/ZIP Co de Phone Number [facility] Department [place] [address] * (ABNORMAL) Iron profile w/ IBC (11/12/2024 7:48 AM BILLING ANALYST) Pathologist [facility] Iron 27(L) 50 - 150 mcg/dL TIBC 407(H) 250 - 400 mcg/dL [facility] Transferrin saturation 7(L) 20 - 50 % [facility] Blood 11/12/2024 7:48 AM BILLING ANALYST 11/12/2024 8:04 AM BILLING ANALYST Amilcar Sarabia MD LAB BLOOD ORDERABLES Final R esult Performing Organization Address [facility] Co de Phone Number [facility] Department [place] [address] * (ABNORMAL) CBC with auto differential (11/12/2024 7:48 AM BILLING ANALYST) [facility] WBC 2.4(L) 3.8 - 9.9 K/cumm Comment:Testing performed by : [facility], [address] [place] [phone] Hgb 9.3(L) 13.0 - 17.5 g/dL [facility] Comment:Testing performed by : [facility], [address] [place] [phone] Hct 29.0(L) 38.9 - 50.3 % [facility] Comment:Testing performed by : [facility], [address] [place] [phone] Plt 112(L) 150 - 400 K/cumm [facility] Comment:Testing performed by : [facility], [address] [place] [phone] MPV 7.7 6.8 - 10.4 fL [facility] Comment:Testing performed by : [facility], [address] [place], [place] [phone] RBC 3.67(L) 4.30 - 5.80 M/cumm [facility] Comment:Testing performed by : [facility], [address] [place], [place] [phone] MCV 79.1(L) 81.3 - 96.4 fL [facility] Comment:Testing performed by : [facility], [address] [place], [place] [phone] MCH 25.3(L) 27.1 - 33.3 pg [facility] Comment:Testing performed by : [facility], [address] [place], [place] [phone] MCHC 31.9(L) 32.3 - 35.7 g/dL [facility] Comment:Testing performed by : [facility], [address] [place], [place] [phone] RDW CV 16.6(H) 11.1 - 14.9 % [facility] Comment:Testing performed by : [facility], [address] [place], [place] [phone] NRBC abs 0.00 0.00 - 0.01 K/cumm [facility] Comment:Testing performed by : [facility], [address] [place], [place] [phone] Blood 11/12/2024 7:48 AM BILLING ANALYST 11/12/2024 7:56 AM BILLING ANALYST Narrative [facility] - 11/12/2024 8:02 AM BILLING ANALYST To be drawn prior to patient taking venetoclax. Jolie Iraheta NP LAB BLOOD LAUREL CHI Final Result [facility] Department of Laboratories [place], [place] [id number] * Uric acid (11/12/2024 7:48 AM BILLING ANALYST) Uric acid 4.2 3.0 - 8.0 mg/dL Blood 11/12/2024 7:48 AM BILLING ANALYST 11/12/2024 8:04 AM BILLING ANALYST Narrative [facility] 11/12/2024 8:30 AM BILLING ANALYST To be drawn 6-8 hours after venetoclax dose on day 1. Jolie Iraheta LAB BLOOD ORDE RABMEAGAN Final Result Performing Organization Address City/[facility]/ZIP Co de Phone Number [facility] [place] [address] * Phosphorus (11/12/2024 7:48 AM BILLING ANALYST) [facility] Phosphorus, pl 4.4 2.3 - 4.5 mg/dL Blood 11/12/2024 7:48 AM BILLING ANALYST 11/12/2024 8:04 AM BILLING ANALYST Narrative [facility] 11/12/2024 8:30 AM BILLING ANALYST To be drawn 6-8 hours after venetoclax dose on day 1. Jolie Smithlsflor LAB BLOOD ORDE RABLES Final Result Performing Organization Address [facility] Co de Phone Number [facility] [place] [address] * Lactate dehydrogenase (LD) (11/12/2024 7:48 AM BILLING ANALYST) [facility] Lactate dehydrogenase (LDH) 176 100 - 250 Units/L Blood 11/12/2024 7:48 AM BILLING ANALYST 11/12/2024 8:04 AM BILLING ANALYST Narrative [facility] 11/12/2024 8:30 AM BILLING ANALYST To be drawn prior to patient taking venetoclax. Jolie [facility] LAB BLOOD ORDE RABLES Final Result Performing Organization Address City/[facility]/ZIP Co de Phone Number [facility] [place] [address] * (ABNORMAL) Ferritin (11/12/2024 7:48 AM BILLING ANALYST) Pathologist [facility] Ferritin 23(L) 30 - 400 ng/mL Blood 11/12/2024 7:48 AM BILLING ANALYST 11/12/2024 8:04 AM BILLING ANALYST Amilcar Sarabia MD LAB BLOOD ORDERABLES Final R esult [facility] Department [place] [address] * (ABNORMAL) Comprehensive metabolic panel (11/12/2024 7:48 AM BILLING ANALYST) Pathologist [facility] Sodium 144 135 - 145 mmol/L Potassium, pl 5.1(H) 3.3 - 4.9 mmol/L [facility] Chloride 109 97 - 110 mmol/L [facility] CO2 29 22 - 32 mmol/L [facility] Anion gap 6 2 - 15 mmol/L [facility] BUN 40(H) 6 - 25 mg/dL [facility] Creatinine 2.01(H) 0.80 - 1.30 mg/dL [facility] Glucose 112 70 - 199 mg/dL [facility] Comment: Interpretive Data Fasting glucose >/= 126 mg/dl is diagnostic for diabetes. Fasting is defined as no caloric intake for at least 8 hours. Fasting glucose between 100 mg/dl to 125 mg/dl is diagnostic of prediabetes. In a patient with classic symptoms of hyperglycemia or hyperglycemic crisis, a random glucose >/= 200 mg/dl is diagnostic for diabetes. In the absence of unequivocal hyperglycemia, results should be confirmed by repeat testing. The classification and Diagnosis of Diabetes Diabetes Care 202; 46: S19-S40. Current interpretive data was last revised 2022. Calcium 9.5 8.5 - 10.3 mg/dL [facility] Bilirubin, total 0.3 0.1 - 1.2 mg/dL [facility] Protein, pl 6.8 6.5 - 8.5 g/dL [facility] Albumin 4.0 3.5 - 5.0 g/dL [facility] Alk phos 103 40 - 130 Units/L [facility] ALT 24 7 - 55 Units/L [facility] AST 33 10 - 50 Units/L [facility] Blood 11/12/2024 7:48 AM BILLING ANALYST 11/12/2024 8:04 AM BILLING ANALYST Narrative [facility] - 11/12/2024 8:30 AM BILLING ANALYST To be drawn prior to patient taking venetoclax. us Jolie Iraheta NP LAB BLOOD ORDE RABLES Final Result [facility] Department [place] [address] * (ABNORMAL) eGFR (11/06/2024 9:10 AM BILLING ANALYST) eGFR 41(L) >=60 mL/min/1. 73 m2 Comment: Interpretive Data Reference Interval Normal >/= 90 mL/min/1.73m2 Mildly decreased* 60 - 89 mL/min/1.73m2 Mildly to moderately decreased 45 - 59 mL/min/1.73m2 Moderately to severely decreased 30 - 44 mL/min/1.73m2 Severely decreased 15 - 29 mL/min/1.73m2 Kidney Failure < 15 mL/min/1.73m2 *Relative to young adult level Estimated glomerular filtration rate is determined by the 2020 CKD-EPI equation recommended by the National Kidney Foundation (A Unifying Approach to GFR Estimation: Recommendations of the NKF-ASK Task Force on Reassessing the Inclusion of Race in Diagnosing Kidney Disease, JASN 2020). The CKD-EPI equation should not be used for patients with unstable renal function and has not been validated in children and those over 70. Current interpretive data was last reviewed 2021. Blood 11/06/2024 9:10 AM BILLING ANALYST 11/06/2024 9:37 AM BILLING ANALYST us Amilcar Sarabia MD LAB BLOOD ORDERABLES Final R esult [facility] (JANICE) 1 [facility] Department [place] [address] * (ABNORMAL) Differential, auto (11/06/2024 9:10 AM BILLING ANALYST) Neutrophil abs 1.4(L) 1.5 - 6.5 K/cumm Imm gran abs 0.0 0.0 - 0.1 K/cumm [facility] ([place]ICE) Lymphocyte abs 0.6(L) 0.8 - 3.3 K/cumm [facility] ([place]) Monocyte abs 0.2 0.2 - 0.8 K/cumm [facility] ([place]ICE) Eosinophil abs 0.1 0.0 - 0.5 K/cumm [facility] ([place]) Basophil abs 0.0 0.0 - 0.1 K/cumm [facility] ([place]ANICE) Neutrophil pct 61.3 % [facility] ([place]) Comment: Interpretive Data Percent cell count reference ranges are not reported, since discordance with absolute values may lead to misinterpretation of CBC data. Current Interpretive Data was last revised on 2018. Imm gran pct 0.4 % [facility] ([place]ICE) Comment: Interpretive Data Percent cell count reference ranges are not reported, since discordance with absolute values may lead to misinterpretation of CBC data. Current Interpretive Data was last revised on 2018. Lymphocyte pct 25.1 % [facility] ([place]) Comment: Interpretive Data Percent cell count reference ranges are not reported, since discordance with absolute values may lead to misinterpretation of CBC data. Current Interpretive Data was last revised on 2018. Monocyte pct 8.1 % [facility] ([place]) Comment: Interpretive Data Percent cell count reference ranges are not reported, since discordance with absolute values may lead to misinterpretation of CBC data. Current Interpretive Data was last revised on 2018. Eosinophil pct 4.7 % [facility] ([place]ICE) Comment: Interpretive Data Percent cell count reference ranges are not reported, since discordance with absolute values may lead to misinterpretation of CBC data. Current Interpretive Data was last revised on 2018. Basophil pct 0.4 % [facility] ([place]) Comment: Interpretive Data Percent cell count reference ranges are not reported, since discordance with absolute values may lead to misinterpretation of CBC data. Current Interpretive Data was last revised on 2018. Blood 11/06/2024 9:10 AM BILLING ANALYST 11/06/2024 9:37 AM BILLING ANALYST Amilcar Sarabia MD LAB BLOOD ORDERABLES Final R esult [facility] ([place]) [facility] Department [place] [address] * (ABNORMAL) CBC with auto differential (11/06/2024 9:10 AM BILLING ANALYST) WBC 2.4(L) 3.8 - 9.9 K/cumm Hgb 9.1(L) 13.0 - 17.5 g/dL [facility] ([place]) Hct 30.6(L) 38.9 - 50.3 % [facility] ([place]) Plt 75(L) 150 - 400 K/cumm [facility] ([place]) MPV 9.2 9.1 - 12.3 fL [facility] ([place]) RBC 3.59(L) 4.30 - 5.80 M/cumm [facility] ([place]) MCV 85.2 81.3 - 96.4 fL [facility] ([place]) MCH 25.3(L) 27.1 - 33.3 pg [facility] ([place]) MCHC 29.7(L) 32.3 - 35.7 g/dL [facility] ([place]) RDW CV 15.6(H) 11.1 - 14.9 % [facility] ([place]) RDW SD 48.3(H) 35.7 - 48.1 fL [facility] ([place]) NRBC abs 0.00 0.00 - 0.01 K/cumm [facility] ([place]) Blood 11/06/2024 9:10 AM BILLING ANALYST 11/06/2024 9:37 AM BILLING ANALYST Narrative [facility] ([place]) - 11/06/2024 9:41 AM BILLING ANALYST To be drawn prior to patient taking venetoclax. Amilcar Sarabia MD LAB BLOOD ORDERABLES Final R esult Performing Organization Address [facility] Co de Phone Number [facility] POLLACKN) 1 [facility] [place] [address] * Uric acid (11/06/2024 9:10 AM BILLING ANALYST) Uric acid 3.5 3.0 - 8.0 mg/dL Blood 11/06/2024 9:10 AM BILLING ANALYST 11/06/2024 9:37 AM BILLING ANALYST Narrative [facility] ([place]) - 11/06/2024 10:06 AM BILLING ANALYST To be drawn 6-8 hours after venetoclax dose on day 1. Amilcar Sarabia MD LAB BLOOD ORDERABLES Final R esult Performing Organization Address [facility] Co de Phone Number [facility] ([place]) 1 [facility] [place] [address] * Phosphorus (11/06/2024 9:10 AM BILLING ANALYST) Phosphorus, pl 3.9 2.3 - 4.5 mg/dL Blood 11/06/2024 9:10 AM BILLING ANALYST 11/06/2024 9:37 AM BILLING ANALYST Narrative [facility] (JANICE) - 11/06/2024 10:06 AM BILLING ANALYST To be drawn 6-8 hours after venetoclax dose on day 1. Amilcar Sarabia MD LAB BLOOD ORDERABLES Final R esult Performing Organization Address City/[facility] Co de Phone Number [facility] ([place]) 1 [facility] [place] [address] * Lactate dehydrogenase (LD) (11/06/2024 9:10 AM BILLING ANALYST) Lactate dehydrogenase (LDH) 186 100 - 250 Units/L Blood 11/06/2024 9:10 AM BILLING ANALYST 11/06/2024 9:37 AM BILLING ANALYST Narrative [facility] ([facility] - 11/06/2024 10:08 AM BILLING ANALYST To be drawn prior to patient taking venetoclax. us Amilcar Sarabia MD LAB BLOOD ORDERABLES Final R esult Performing Organization Address City/[facility]/ZIP Co de Phone Number [facility] (JANICE) 1 [facility] [place] [address] * (ABNORMAL) Beta 2 microglobulin, serum (11/06/2024 9:10 AM BILLING ANALYST) Pathologist [facility] Beta 2 Microglobulin, Serum 5.61(H) 1.21 - 2.70 mcg/mL [place] [facility] Comment: Test Performed by: [facility] [address] [place] [id number] [employer]: Sammy Jimenez Ph.D.; CLIA# [id number] Blood 11/06/2024 9:10 AM BILLING ANALYST 11/06/2024 9:37 AM BILLING ANALYST us Amilcar Sarabia MD LAB BLOOD ORDERABLES Final R esult Performing Organization Address City/[facility]/ZIP Co de Phone Number [facility] (JANICE) 1 [facility] [place] [address] [place] * (ABNORMAL) Comprehensive metabolic panel (11/06/2024 9:10 AM BILLING ANALYST) [facility] Sodium 143 135 - 145 mmol/L Potassium, pl 4.3 3.3 - 4.9 mmol/L [facility] ([place]ICE) Chloride 107 97 - 110 mmol/L [facility] ([place]) CO2 27 22 - 32 mmol/L [facility] ([facility] Anion gap 10 2 - 15 mmol/L [facility] ([place]ANICE) BUN 26(H) 6 - 25 mg/dL [facility] ([place]) Creatinine 1.69(H) 0.80 - 1.30 mg/dL [facility] ([place]) Glucose 120 70 - 199 mg/dL [facility] ([place]ANICE) Comment: Interpretive Data Fasting glucose >/= 126 mg/dl is diagnostic for diabetes. Fasting is defined as no caloric intake for at least 8 hours. Fasting glucose between 100 mg/dl to 125 mg/dl is diagnostic of prediabetes. In a patient with classic symptoms of hyperglycemia or hyperglycemic crisis, a random glucose >/= 200 mg/dl is diagnostic for diabetes. In the absence of unequivocal hyperglycemia, results should be confirmed by repeat testing. The classification and Diagnosis of Diabetes Diabetes Care 2021; 46: S19-S40. Current interpretive data was last revised 2022. Calcium 9.4 8.5 - 10.3 mg/dL [facility] ([place]) Bilirubin, total 0.3 0.1 - 1.2 mg/dL [facility] ([place]) Protein, pl 6.5 6.5 - 8.5 g/dL [facility] ([place]) Albumin 4.0 3.5 - 5.0 g/dL [facility] ([place]) Alk phos 110 40 - 130 Units/L [facility] ([place]) ALT 21 7 - 55 Units/L [facility] ([place]) AST 26 10 - 50 Units/L [facility] ([place]) Blood 11/06/2024 9:10 AM BILLING ANALYST 11/06/2024 9:37 AM BILLING ANALYST Narrative [facility] ([place]) - 11/06/2024 10:06 AM BILLING ANALYST To be drawn prior to patient taking venetoclax. us Amilcar Sarabia MD LAB BLOOD ORDERABLES Final R esult [facility] ([place]) 1 [facility] Department [place] [address] * (ABNORMAL) eGFR (11/05/2024 2:43 PM BILLING ANALYST) eGFR 37(L) >=60 mL/min/1. 73 m2 Comment: Interpretive Data Reference Interval Normal >/= 90 mL/min/1.73m2 Mildly decreased* 60 - 89 mL/min/1.73m2 Mildly to moderately decreased 45 - 59 mL/min/1.73m2 Moderately to severely decreased 30 - 44 mL/min/1.73m2 Severely decreased 15 - 29 mL/min/1.73m2 Kidney Failure < 15 mL/min/1.73m2 *Relative to young adult level Estimated glomerular filtration rate is determined by the 2020 CKD-EPI equation recommended by the National Kidney Foundation (A Unifying Approach to GFR Estimation: Recommendations of the NKF-ASK Task Force on Reassessing the Inclusion of Race in Diagnosing Kidney Disease, JASN 2020). The CKD-EPI equation should not be used for patients with unstable renal function and has not been validated in children and those over 70. Current interpretive data was last reviewed 2021. Testing performed by: [address] [address] Blood 11/05/2024 2:43 PM BILLING ANALYST 11/05/2024 7:16 PM BILLING ANALYST Jolie Iraheta LAB BLOOD ORDE RABLES Final Result Performing Organization Address City/[facility]/ZIP Co de Phone Number [facility] (JANICE) 1 [facility] [place] [address] * Uric acid (11/05/2024 2:43 PM BILLING ANALYST) Uric acid 3.6 3.0 - 8.0 mg/dL Comment:Testing performed by : [address] [address] Blood 11/05/2024 2:43 PM BILLING ANALYST 11/05/2024 7:05 PM BILLING ANALYST Narrative [facility] (JANICE) - 11/05/2024 7:38 PM BILLING ANALYST 6-8 hours post venetoclax dose. Jolie Natalia Iraheta INTELLIGENCE ENGINEER LAB BLOOD ORDE RABLES Final Result [facility] (JANICE) 1 [facility] [place], [place] [id number] * Phosphorus (11/05/2024 2:43 PM BILLING ANALYST) Phosphorus, pl 4.0 2.3 - 4.5 mg/dL Comment:Testing performed by : [address], [address] Blood 11/05/2024 2:43 PM BILLING ANALYST 11/05/2024 7:05 PM BILLING ANALYST Narrative [facility] ([place]) - 11/05/2024 7:38 PM BILLING ANALYST 6-8 hours post venetoclax dose. Jolie Iraheta NP LAB BLOOD LAUREL CHI Final Result [facility] ([place]ANICE) 1 [facility] Department [place] [address] * (ABNORMAL) Basic metabolic panel (11/05/2024 2:43 PM BILLING ANALYST) Sodium 142 135 - 145 mmol/L Comment:Testing performed by : [address], [address] Potassium, pl 4.2 3.3 - 4.9 mmol/L [facility] ([facility]) Comment:Testing performed by : [address], [address] Chloride 106 97 - 110 mmol/L [facility] ([place]) Comment:Testing performed by : [address] [address] CO2 26 22 - 32 mmol/L [facility] ([place]ANICE) Comment:Testing performed by : [address], [address] Anion gap 10 2 - 15 mmol/L [facility] ([facility]) Comment:Testing performed by : [address], [address] BUN 30(H) 6 - 25 mg/dL [facility] ([place]ICE) Comment:Testing performed by : [address], [address] Creatinine 1.86(H) 0.80 - 1.30 mg/dL [facility] ([place]ANICE) Comment:Testing performed by : [address], [address] Glucose 111 70 - 199 mg/dL [facility] ([facility]) Comment: Interpretive Data Fasting glucose >/= 126 mg/dl is diagnostic for diabetes. Fasting is defined as no caloric intake for at least 8 hours. Fasting glucose between 100 mg/dl to 125 mg/dl is diagnostic of prediabetes. In a patient with classic symptoms of hyperglycemia or hyperglycemic crisis, a random glucose >/= 200 mg/dl is diagnostic for diabetes. In the absence of unequivocal hyperglycemia, results should be confirmed by repeat testing. The classification and Diagnosis of Diabetes Diabetes Care 2021; 46: S19-S40. Current interpretive data was last revised 2022. Testing performed by: [facility], [address] [place] [address]., [address] Calcium 9.2 8.5 - 10.3 mg/dL [facility]) Comment:Testing performed by : [facility], [address] [place] [address]., [id number] Blood 11/05/2024 2:43 PM BILLING ANALYST 11/05/2024 7:05 PM BILLING ANALYST Narrative [facility] AVERY) - 11/05/2024 7:38 PM BILLING ANALYST 6-8 hours post venetoclax dose. Jolie Iraheta NP LAB BLOOD ORDRuiz CHI Final Result [facility] AVERY) 1 [facility] Department of Laboratories [place], [place] [id number] * (ABNORMAL) eGFR (11/05/2024 8:24 AM BILLING ANALYST) eGFR 39(L) >=60 mL/min/1. 73 m2 Comment: Interpretive Data Reference Interval Normal >/= 90 mL/min/1.73m2 Mildly decreased* 60 - 89 mL/min/1.73m2 Mildly to moderately decreased 45 - 59 mL/min/1.73m2 Moderately to severely decreased 30 - 44 mL/min/1.73m2 Severely decreased 15 - 29 mL/min/1.73m2 Kidney Failure < 15 mL/min/1.73m2 *Relative to young adult level Estimated glomerular filtration rate is determined by the 2020 CKD-EPI equation recommended by the National Kidney [employer] (A Unifying Approach to GFR Estimation: Recommendations of the NKF-ASK Task Force on Reassessing the Inclusion of Race in Diagnosing Kidney Disease, JASN 202). The CKD-EPI equation should not be used for patients with unstable renal function and has not been validated in children and those over 70. Current interpretive data was last reviewed 2021. Blood 11/05/2024 8:24 AM BILLING ANALYST 11/05/2024 8:28 AM BILLING ANALYST Amilcar Sarabia MD LAB BLOOD ORDERABLES Final R esult [facility] Department [place] [address] * (ABNORMAL) Differential, auto (11/05/2024 8:24 AM BILLING ANALYST) Neutrophil abs 1.4(L) 1.5 - 6.5 K/cumm Comment:Testing performed by : [facility], [address] [place] [phone] Lymphocyte abs 0.6(L) 0.8 - 3.3 K/cumm [facility] Comment:Testing performed by : [facility], [address] [place] [phone] Monocyte abs 0.2 0.2 - 0.8 K/cumm [facility] Comment:Testing performed by : [facility], [address] [place] [phone] Eosinophil abs 0.1 0.0 - 0.5 K/cumm [facility] Comment:Testing performed by : [facility], [address] [place] [phone] Basophil abs 0.0 0.0 - 0.1 K/cumm [facility] Comment:Testing performed by : [facility], [address] [place] [phone] Neutrophil pct 60.1 % [facility] Comment: Interpretive Data Percent cell count reference ranges are not reported, since discordance with absolute values may lead to misinterpretation of CBC data. Current Interpretive Data was last revised on 2018. Testing performed by: [facility], [address] [place] [phone] Lymphocyte pct 26.6 % [facility] Comment: Interpretive Data Percent cell count reference ranges are not reported, since discordance with absolute values may lead to misinterpretation of CBC data. Current Interpretive Data was last revised on 2018. Testing performed by: [facility], [address] [place] [phone] Monocyte pct 7.8 % [facility] Comment: Interpretive Data Percent cell count reference ranges are not reported, since discordance with absolute values may lead to misinterpretation of CBC data. Current Interpretive Data was last revised on 2018. Testing performed by: [facility], [address] [place] [phone] Eosinophil pct 4.5 % [facility] Comment: Interpretive Data Percent cell count reference ranges are not reported, since discordance with absolute values may lead to misinterpretation of CBC data. Current Interpretive Data was last revised on 2018. Testing performed by: [facility], [address] [place] [phone] Basophil pct 1.0 % [facility] Comment: Interpretive Data Percent cell count reference ranges are not reported, since discordance with absolute values may lead to misinterpretation of CBC data. Current Interpretive Data was last revised on 2018. Testing performed by: [facility], [address] [place] [phone] Blood 11/05/2024 8:24 AM BILLING ANALYST 11/05/2024 8:27 AM BILLING ANALYST us Amilcar Sarabia MD LAB BLOOD ORDERABLES Final R esult [facility] Department [place] [address] * (ABNORMAL) CBC with auto differential (11/05/2024 8:24 AM BILLING ANALYST) WBC 2.3(L) 3.8 - 9.9 K/cumm Comment:Testing performed by : [facility], [address] [place], [place] [phone] Hgb 9.0(L) 13.0 - 17.5 g/dL [facility] Comment:Testing performed by : [facility], [address] [place], [place] [phone] Hct 28.7(L) 38.9 - 50.3 % [facility] Comment:Testing performed by : [facility], [address] [place], [place] [phone] Plt 77(L) 150 - 400 K/cumm [facility] Comment:Testing performed by : [facility], [address] [place], [place] [phone] MPV 7.6 6.8 - 10.4 fL [facility] Comment:Testing performed by : [facility], [address] [place], [place] [phone] RBC 3.61(L) 4.30 - 5.80 M/cumm [facility] Comment:Testing performed by : [facility], [address] [place], [place] [phone] MCV 79.4(L) 81.3 - 96.4 fL [facility] Comment:Testing performed by : [facility], [address] [place], [place] [phone] MCH 24.9(L) 27.1 - 33.3 pg [facility] Comment:Testing performed by : [facility], [address] [place], [place] [phone] MCHC 31.3(L) 32.3 - 35.7 g/dL [facility] Comment:Testing performed by : [facility], [address] [place] [address] RDW CV 16.3(H) 11.1 - 14.9 % [facility] Comment:Testing performed by : [facility], [address] [place], [place] [phone] NRBC abs 0.00 0.00 - 0.01 K/cumm [facility] Comment:Testing performed by : [facility], [address] [place] [address] [place] [phone] Blood 11/05/2024 8:24 AM BILLING ANALYST 11/05/2024 8:27 AM BILLING ANALYST Narrative [facility] 11/05/2024 8:35 AM BILLING ANALYST To be drawn prior to patient taking venetoclax. Amilcar Sarabia MD LAB BLOOD ORDERABLES Final R esult Performing Organization Address City/[facility]/ZIP Co de Phone Number [facility] [place] [address] * Uric acid (11/05/2024 8:24 AM BILLING ANALYST) Uric acid 3.3 3.0 - 8.0 mg/dL Blood 11/05/2024 8:24 AM BILLING ANALYST 11/05/2024 8:28 AM BILLING ANALYST Narrative [facility] 11/05/2024 9:06 AM BILLING ANALYST To be drawn prior to patient taking venetoclax. Amilcar Sarabia MD LAB BLOOD ORDERABLES Final R esult Performing Organization Address [facility] [place] [address] * Phosphorus (11/05/2024 8:24 AM BILLING ANALYST) Phosphorus, pl 3.9 2.3 - 4.5 mg/dL Blood 11/05/2024 8:24 AM BILLING ANALYST 11/05/2024 8:28 AM BILLING ANALYST Narrative [facility] 11/05/2024 9:06 AM BILLING ANALYST To be drawn prior to patient taking venetoclax. Amilcar Sarabia MD LAB BLOOD ORDERABLES Final R esult Performing Organization Address City/[facility]/[place] [address] * Lactate dehydrogenase (LD) (11/05/2024 8:24 AM BILLING ANALYST) Lactate dehydrogenase (LDH) 186 100 - 250 Units/L Blood 11/05/2024 8:24 AM BILLING ANALYST 11/05/2024 8:28 AM BILLING ANALYST Narrative [facility] - 11/05/2024 9:06 AM BILLING ANALYST To be drawn prior to patient taking venetoclax. us Amilcar Sarabia MD LAB BLOOD ORDERABLES Final R esult [facility] Department [place] [address] * (ABNORMAL) Comprehensive metabolic panel (11/05/2024 8:24 AM BILLING ANALYST) Pathologist [facility] Sodium 141 135 - 145 mmol/L Potassium, pl 4.1 3.3 - 4.9 mmol/L [facility] Chloride 108 97 - 110 mmol/L [facility] CO2 28 22 - 32 mmol/L [facility] Anion gap 5 2 - 15 mmol/L [facility] BUN 29(H) 6 - 25 mg/dL [facility] Creatinine 1.78(H) 0.80 - 1.30 mg/dL [facility] Glucose 109 70 - 199 mg/dL [facility] Comment: Interpretive Data Fasting glucose >/= 126 mg/dl is diagnostic for diabetes. Fasting is defined as no caloric intake for at least 8 hours. Fasting glucose between 100 mg/dl to 125 mg/dl is diagnostic of prediabetes. In a patient with classic symptoms of hyperglycemia or hyperglycemic crisis, a random glucose >/= 200 mg/dl is diagnostic for diabetes. In the absence of unequivocal hyperglycemia, results should be confirmed by repeat testing. The classification and Diagnosis of Diabetes Diabetes Care 202; 46: S19-S40. Current interpretive data was last revised 2022. Calcium 9.2 8.5 - 10.3 mg/dL [facility] Bilirubin, total 0.5 0.1 - 1.2 mg/dL [facility] Protein, pl 6.5 6.5 - 8.5 g/dL [facility] Albumin 3.9 3.5 - 5.0 g/dL [facility] Alk phos 92 40 - 130 Units/L [facility] ALT 22 7 - 55 Units/L [facility] AST 30 10 - 50 Units/L [facility] Blood 11/05/2024 8:24 AM BILLING ANALYST 11/05/2024 8:28 AM BILLING ANALYST Narrative [facility] - 11/05/2024 9:06 AM BILLING ANALYST To be drawn prior to patient taking venetoclax. us Amilcar Sarabia MD LAB BLOOD ORDERABLES Final R esult [facility] Department [place] [address] * CT chest abdomen pelvis with contrast (11/05/2024 7:50 AM BILLING ANALYST) Anatomical Region Laterality Modality Body N/A Computed Tomogra phy 11/05/2024 9:42 AM BILLING ANALYST Impressions 11/05/2024 12:18 PM BILLING ANALYST 1. Interval slight decrease in size of lymphadenopathy above and below the diaphragm with unchanged splenomegaly in keeping with patient's chronic lymphocytic leukemia. 2. 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 The radiology attending physician has personally reviewed this study, and had reviewed and/or edited this written report and agrees with it. Electronically signed by: Ronel Matute M.D. Narrative 11/05/2024 12:18 PM BILLING ANALYST EXAMINATION: Computed tomography of the chest, abdomen and pelvis with intravenous contrast HISTORY: 79-year-old with CLL. TECHNIQUE: Transaxial computed tomographic images of the chest, abdomen and pelvis were obtained with intravenous contrast according to the standard protocol after the uneventful administration of 69 mL Opti-Ray 350 intravenous contrast. COMPARISON: CT chest abdomen pelvis dated 03/12/2024 FINDINGS: Chest: Multiple calcified granulomas compatible with old granulomatous disease. There is mild periosteophyte fibrosis medial portion of the right lower lobe. No focal pulmonary consolidation, pleural effusion, or pneumothorax. Axilla lymph nodes are prominent however smaller when compared to prior. For reference, there is a right axillary lymph node that measures 6 mm seen on series 2 image 49 that previously measured 11.3 mm. Another example of this is the left axillary lymph node that measures 7 mm seen on series 2 image 48 that previously measured 14 mm. Left subpectoral nodes are prominent but slightly smaller when compared to prior. Right subpectoral lymph nodes are unchanged. There are subcentimeter mediastinal lymph nodes that are slightly smaller when compared to prior CT. No hilar or supraclavicular lymphadenopathy. The ascending aorta is mildly dilated measuring 4.4 cm x 4.3 cm. Heart is mildly enlarged. No pericardial effusion. There is three-vessel coronary artery disease. There is a small hiatal hernia. Abdomen/Pelvis: No hepatic lesion. No intrahepatic or extra hepatic biliary duct dilatation. Gallbladder is normal. Adrenal glands are normal. There is mild splenomegaly that is unchanged with the spleen measuring 18.1 cm in the craniocaudal orientation. There is a small cystic lesion that measures 4 mm in the side branch of the pancreatic duct that could represent a intrapancreatic mucinous neoplasm. There is bilateral renal cortical scarring. There are small nonobstructing kidney stones in the renal cyst in the inferior pole of the left kidney. No evidence of hydronephrosis. Bladder is decompressed. Are postoperative changes in the prostate. There is colonic diverticulosis without diverticulitis. Small bowel and colon are normal in course and caliber. The appendix is normal. There is trace pelvic ascites that is new. There are multiple subcentimeter intraperitoneal and retroperitoneal lymph nodes. For example there is mildly enlarged aortocaval node measuring 8 mm it is slightly decreased in size compared to prior where it measured 11 mm and is seen on series 2 image 197. There is an enlarged left common iliac lymph node that measures 1.1 cm in short axis and previously measured 1.5 cm in prior study and is seen on series 2 image 225. There are bilateral external iliac nodes that are enlarged for referenced left external iliac lymph node measures 2.9 cm seen on series 2 image 269 and previously measured 3.8 cm. There is a left pelvic sidewall node that measures 1.2 cm and previously measured 1.6 cm and is seen on series 2 image 268. Abdominal aorta is normal in course and caliber. There are bilateral shoulder arthroplasties. Patient is status post sternal plating sternal sternotomy. There is grade 2 anterolisthesis of L5 on S1 with pars defect. Procedure Note Ronel Matute MD - 11/05/2024 EXAMINATION: Computed tomography of the chest, abdomen and pelvis with intravenous contrast HISTORY: 79-year-old with CLL. TECHNIQUE: Transaxial computed tomographic images of the chest, abdomen and pelvis were obtained with intravenous contrast according to the standard protocol after the uneventful administration of 69 mL Opti-Ray 350 intravenous contrast. COMPARISON: CT chest abdomen pelvis dated 03/12/2024 FINDINGS: Chest: Multiple calcified granulomas compatible with old granulomatous disease. There is mild periosteophyte fibrosis medial portion of the right lower lobe. No focal pulmonary consolidation, pleural effusion, or pneumothorax. Axilla lymph nodes are prominent however smaller when compared to prior. For reference, there is a right axillary lymph node that measures 6 mm seen on series 2 image 49 that previously measured 11.3 mm. Another example of this is the left axillary lymph node that measures 7 mm seen on series 2 image 48 that previously measured 14 mm. Left subpectoral nodes are prominent but slightly smaller when compared to prior. Right subpectoral lymph nodes are unchanged. There are subcentimeter mediastinal lymph nodes that are slightly smaller when compared to prior CT. No hilar or supraclavicular lymphadenopathy. The ascending aorta is mildly dilated measuring 4.4 cm x 4.3 cm. Heart is mildly enlarged. No pericardial effusion. There is three-vessel coronary artery disease. There is a small hiatal hernia. Abdomen/Pelvis: No hepatic lesion. No intrahepatic or extra hepatic biliary duct dilatation. Gallbladder is normal. Adrenal glands are normal. There is mild splenomegaly that is unchanged with the spleen measuring 18.1 cm in the craniocaudal orientation. There is a small cystic lesion that measures 4 mm in the side branch of the pancreatic duct that could represent a intrapancreatic mucinous neoplasm. There is bilateral renal cortical scarring. There are small nonobstructing kidney stones in the renal cyst in the inferior pole of the left kidney. No evidence of hydronephrosis. Bladder is decompressed. Are postoperative changes in the prostate. There is colonic diverticulosis without diverticulitis. Small bowel and colon are normal in course and caliber. The appendix is normal. There is trace pelvic ascites that is new. There are multiple subcentimeter intraperitoneal and retroperitoneal lymph nodes. For example there is mildly enlarged aortocaval node measuring 8 mm it is slightly decreased in size compared to prior where it measured 11 mm and is seen on series 2 image 197. There is an enlarged left common iliac lymph node that measures 1.1 cm in short axis and previously measured 1.5 cm in prior study and is seen on series 2 image 225. There are bilateral external iliac nodes that are enlarged for referenced left external iliac lymph node measures 2.9 cm seen on series 2 image 269 and previously measured 3.8 cm. There is a left pelvic sidewall node that measures 1.2 cm and previously measured 1.6 cm and is seen on series 2 image 268. Abdominal aorta is normal in course and caliber. There are bilateral shoulder arthroplasties. Patient is status post sternal plating sternal sternotomy. There is grade 2 anterolisthesis of L5 on S1 with pars defect. IMPRESSION: 1. Interval slight decrease in size of lymphadenopathy above and below the diaphragm with unchanged splenomegaly in keeping with patient's chronic lymphocytic leukemia. 2. 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 The radiology attending physician has personally reviewed this study, and had reviewed and/or edited this written report and agrees with it. Electronically signed by: Ronel Matute M.D. Amilcar Sarabia MD IM CT PROCEDURES Final Resu lt * (ABNORMAL) Differential, auto (10/29/2024 8:07 AM BILLING ANALYST) Neutrophil abs 2.7 1.5 - 6.5 K/cumm Comment:Testing performed by : [facility], [address] [place] [phone] Lymphocyte abs 0.5(L) 0.8 - 3.3 K/cumm [facility] Comment:Testing performed by : [facility], [address] [place] [phone] Monocyte abs 0.2 0.2 - 0.8 K/cumm [facility] Comment:Testing performed by : [facility], [address] [place] [phone] Eosinophil abs 0.1 0.0 - 0.5 K/cumm [facility] Comment:Testing performed by : [facility], [address] [place] [phone] Basophil abs 0.0 0.0 - 0.1 K/cumm [facility] Comment:Testing performed by : [facility], [address] [place] [phone] Neutrophil pct 76.3 % [facility] Comment: Interpretive Data Percent cell count reference ranges are not reported, since discordance with absolute values may lead to misinterpretation of CBC data. Current Interpretive Data was last revised on 2018. Testing performed by: [facility], [address] [place] [phone] Lymphocyte pct 15.2 % [facility] Comment: Interpretive Data Percent cell count reference ranges are not reported, since discordance with absolute values may lead to misinterpretation of CBC data. Current Interpretive Data was last revised on 2018. Testing performed by: [facility], [address] [place] [phone] Monocyte pct 5.6 % [facility] Comment: Interpretive Data Percent cell count reference ranges are not reported, since discordance with absolute values may lead to misinterpretation of CBC data. Current Interpretive Data was last revised on 2018. Testing performed by: [facility], [address] [place] [phone] Eosinophil pct 1.9 % [facility] Comment: Interpretive Data Percent cell count reference ranges are not reported, since discordance with absolute values may lead to misinterpretation of CBC data. Current Interpretive Data was last revised on 2018. Testing performed by: [facility], [address] [place] [phone] Basophil pct 1.0 % [facility] Comment: Interpretive Data Percent cell count reference ranges are not reported, since discordance with absolute values may lead to misinterpretation of CBC data. Current Interpretive Data was last revised on 2018. Testing performed by: [facility], [address] [place] [phone] Blood 10/29/2024 8:07 AM BILLING ANALYST 10/29/2024 8:10 AM BILLING ANALYST Amilcar Sarabia MD LAB BLOOD ORDERABLES Final R esult [facility] Department [place] [address] * (ABNORMAL) CBC with auto differential (10/29/2024 8:07 AM BILLING ANALYST) WBC 3.5(L) 3.8 - 9.9 K/cumm Comment:Testing performed by : [facility], [address] [place] [address] Hgb 8.7(L) 13.0 - 17.5 g/dL [facility] Comment:Testing performed by : [facility], [address] [place] [address] Hct 27.9(L) 38.9 - 50.3 % [facility] Comment:Testing performed by : [facility], [address] [place] [address] Plt 83(L) 150 - 400 K/cumm [facility] Comment:Testing performed by : [facility], [address] [place] [address] MPV 7.3 6.8 - 10.4 fL [facility] Comment:Testing performed by : [facility], [address] [place] [address] RBC 3.49(L) 4.30 - 5.80 M/cumm [facility] Comment:Testing performed by : [facility], [address] [place] [address] MCV 80.1(L) 81.3 - 96.4 fL [facility] Comment:Testing performed by : [facility], [address] [place] [address] MCH 25.1(L) 27.1 - 33.3 pg [facility] Comment:Testing performed by : [facility], [address] [place] [address] MCHC 31.3(L) 32.3 - 35.7 g/dL [facility] Comment:Testing performed by : [facility], [address] [place] [phone] RDW CV 16.3(H) 11.1 - 14.9 % [facility] Comment:Testing performed by : [facility], [address] [place] [phone] NRBC abs 0.00 0.00 - 0.01 K/cumm [facility] Comment:Testing performed by : [facility], [address] [place] [phone] Blood 10/29/2024 8:07 AM BILLING ANALYST 10/29/2024 8:10 AM BILLING ANALYST Amilcar Sarabia MD LAB BLOOD ORDERABLES Final R esult [facility] Department [place] [address] * (ABNORMAL) eGFR (10/22/2024 8:20 AM BILLING ANALYST) eGFR 35(L) >=60 mL/min/1. 73 m2 Comment: Interpretive Data Reference Interval Normal >/= 90 mL/min/1.73m2 Mildly decreased* 60 - 89 mL/min/1.73m2 Mildly to moderately decreased 45 - 59 mL/min/1.73m2 Moderately to severely decreased 30 - 44 mL/min/1.73m2 Severely decreased 15 - 29 mL/min/1.73m2 Kidney Failure < 15 mL/min/1.73m2 *Relative to young adult level Estimated glomerular filtration rate is determined by the 2020 CKD-EPI equation recommended by the National Kidney [employer] (A Unifying Approach to GFR Estimation: Recommendations of the NKF-ASK Task Force on Reassessing the Inclusion of Race in Diagnosing Kidney Disease, JASN 2020). The CKD-EPI equation should not be used for patients with unstable renal function and has not been validated in children and those over 70. Current interpretive data was last reviewed 2021. Blood 10/22/2024 8:20 AM BILLING ANALYST 10/22/2024 8:30 AM BILLING ANALYST us Cas Taylor MD LAB BLOOD ORDERABLES Fin al Result [facility] Department [place] [address] * Differential, auto (10/22/2024 8:20 AM BILLING ANALYST) Neutrophil abs 2.2 1.5 - 6.5 K/cumm Comment:Testing performed by : [facility], [address] [place] [phone] Lymphocyte abs 1.0 0.8 - 3.3 K/cumm [facility] Comment:Testing performed by : [facility], [address] [place] [phone] Monocyte abs 0.2 0.2 - 0.8 K/cumm CERNER BJ Comment:Testing performed by : [facility], [address] [place] [phone] Eosinophil abs 0.1 0.0 - 0.5 K/cumm CERNER BJ Comment:Testing performed by : [facility], [address] [place] [phone] Basophil abs 0.0 0.0 - 0.1 K/cumm CERNER BJ Comment:Testing performed by : [facility], [address] [place] [phone] Neutrophil pct 62.3 % CERNER BJ Comment: Interpretive Data Percent cell count reference ranges are not reported, since discordance with absolute values may lead to misinterpretation of CBC data. Current Interpretive Data was last revised on 2018. Testing performed by: [facility], [address] [place] [phone] Lymphocyte pct 29.1 % CERNER BJ Comment: Interpretive Data Percent cell count reference ranges are not reported, since discordance with absolute values may lead to misinterpretation of CBC data. Current Interpretive Data was last revised on 2018. Testing performed by: [facility], [address] [place] [phone] Monocyte pct 5.7 % BEN CERRATO Comment: Interpretive Data Percent cell count reference ranges are not reported, since discordance with absolute values may lead to misinterpretation of CBC data. Current Interpretive Data was last revised on 2018. Testing performed by: [facility], [address] [place] [phone] Eosinophil pct 2.2 % BEN CERRATO Comment: Interpretive Data Percent cell count reference ranges are not reported, since discordance with absolute values may lead to misinterpretation of CBC data. Current Interpretive Data was last revised on 2018. Testing performed by: [facility], [address] [place], [place] [phone] Basophil pct 0.7 % BEN CERRATO Comment: Interpretive Data Percent cell count reference ranges are not reported, since discordance with absolute values may lead to misinterpretation of CBC data. Current Interpretive Data was last revised on 2018. Testing performed by: [facility], [address] [place] [phone] Blood 10/22/2024 8:20 AM BILLING ANALYST 10/22/2024 8:30 AM BILLING ANALYST Amilcar Sarabia MD LAB BLOOD ORDERABLES Final R esult [facility] Department [place] [address] * (ABNORMAL) CBC with auto differential (10/22/2024 8:20 AM BILLING ANALYST) WBC 3.5(L) 3.8 - 9.9 K/cumm Comment:Testing performed by : [facility], [address] [place] [phone] Hgb 8.6(L) 13.0 - 17.5 g/dL BEN CERRATO Comment:Testing performed by : [facility], [address] [place] [address] Hct 27.6(L) 38.9 - 50.3 % CERCAROLINA BJ Comment:Testing performed by : [facility], [address] [place], [place] [phone] Plt 89(L) 150 - 400 K/cumm CERCARLOINA BJ Comment:Testing performed by : [facility], [address] [place], [place] [phone] MPV 7.8 6.8 - 10.4 fL BEN CERRATO Comment:Testing performed by : [facility], [address] [place], [place] [phone] RBC 3.34(L) 4.30 - 5.80 M/cumm BEN BJ Comment:Testing performed by : [facility], [address] [place], [place] [phone] MCV 82.7 81.3 - 96.4 fL BEN CERRATO Comment:Testing performed by : [facility], [address] [place], [place] [phone] MCH 25.8(L) 27.1 - 33.3 pg CERCAROLINA CERRATO Comment:Testing performed by : [facility], [address] [place], [place] [phone] MCHC 31.1(L) 32.3 - 35.7 g/dL BEN CERRATO Comment:Testing performed by : [facility], [address] [place], [place] [phone] RDW CV 17.2(H) 11.1 - 14.9 % BEN CERRATO Comment:Testing performed by : [facility], [address] [place], [place] [phone] NRBC abs 0.00 0.00 - 0.01 K/cumm [facility] Comment:Testing performed by : [facility], [address] [place], [place] [phone] Blood 10/22/2024 8:20 AM BILLING ANALYST 10/22/2024 8:30 AM BILLING ANALYST Amilcar Sarabia MD LAB BLOOD ORDERABLES Final R esult [facility] Department [place] [address] * (ABNORMAL) Comprehensive metabolic panel (10/22/2024 8:20 AM BILLING ANALYST) Sodium 146(H) 135 - 145 mmol/L Potassium, pl 4.3 3.3 - 4.9 mmol/L [facility] Chloride 113(H) 97 - 110 mmol/L [facility] CO2 28 22 - 32 mmol/L [facility] Anion gap 5 2 - 15 mmol/L [facility] BUN 31(H) 6 - 25 mg/dL [facility] Creatinine 1.94(H) 0.80 - 1.30 mg/dL [facility] Glucose 114 70 - 199 mg/dL [facility] Comment: Interpretive Data Fasting glucose >/= 126 mg/dl is diagnostic for diabetes. Fasting is defined as no caloric intake for at least 8 hours. Fasting glucose between 100 mg/dl to 125 mg/dl is diagnostic of prediabetes. In a patient with classic symptoms of hyperglycemia or hyperglycemic crisis, a random glucose >/= 200 mg/dl is diagnostic for diabetes. In the absence of unequivocal hyperglycemia, results should be confirmed by repeat testing. The classification and Diagnosis of Diabetes Diabetes Care 202; 46: S19-S40. Current interpretive data was last revised 2022. Calcium 9.1 8.5 - 10.3 mg/dL [facility] Bilirubin, total 0.3 0.1 - 1.2 mg/dL [facility] Protein, pl 6.2(L) 6.5 - 8.5 g/dL [facility] Albumin 3.7 3.5 - 5.0 g/dL [facility] Alk phos 116 40 - 130 Units/L [facility] ALT 75(H) 7 - 55 Units/L [facility]ERNER [facility] AST 86(H) 10 - 50 Units/L [facility] Blood 10/22/2024 8:20 AM BILLING ANALYST 10/22/2024 8:30 AM BILLING ANALYST Cas Taylor MD LAB BLOOD ORDERABLES Fin al Result [facility] [place] [address] * (ABNORMAL) eGFR (10/16/2024 4:56 PM BILLING ANALYST) eGFR 29(L) >=60 mL/min/1. 73 m2 Comment: Interpretive Data Reference Interval Normal >/= 90 mL/min/1.73m2 Mildly decreased* 60 - 89 mL/min/1.73m2 Mildly to moderately decreased 45 - 59 mL/min/1.73m2 Moderately to severely decreased 30 - 44 mL/min/1.73m2 Severely decreased 15 - 29 mL/min/1.73m2 Kidney Failure < 15 mL/min/1.73m2 *Relative to young adult level Estimated glomerular filtration rate is determined by the 2020 CKD-EPI equation recommended by the National Kidney Foundation (A Unifying Approach to GFR Estimation: Recommendations of the NKF-ASK Task Force on Reassessing the Inclusion of Race in Diagnosing Kidney Disease, JASN 2020). The CKD-EPI equation should not be used for patients with unstable renal function and has not been validated in children and those over 70. Current interpretive data was last reviewed 2021. Blood 10/16/2024 4:56 PM BILLING ANALYST 10/16/2024 5:44 PM BILLING ANALYST us Amilcar Sarabia MD LAB BLOOD ORDERABLES Final R esult Performing Organization Address [facility] Co de Phone Number [facility] Department [place] [address] * Uric acid (10/16/2024 4:56 PM BILLING ANALYST) Uric acid 5.9 3.0 - 8.0 mg/dL Blood 10/16/2024 4:56 PM BILLING ANALYST 10/16/2024 5:44 PM BILLING ANALYST Narrative [facility] - 10/16/2024 6:36 PM BILLING ANALYST To be drawn at the end of obina infusion us Amilcar Sarabia MD LAB BLOOD ORDERABLES Final R esult [facility] Department [place] [address] * (ABNORMAL) Basic metabolic panel (10/16/2024 4:56 PM BILLING ANALYST) Pathologist [facility] Sodium 143 135 - 145 mmol/L Potassium, pl 4.7 3.3 - 4.9 mmol/L [facility] Chloride 107 97 - 110 mmol/L [facility] CO2 24 22 - 32 mmol/L [facility] Anion gap 12 2 - 15 mmol/L [facility] BUN 41(H) 6 - 25 mg/dL [facility] Creatinine 2.30(H) 0.80 - 1.30 mg/dL [facility] Glucose 179 70 - 199 mg/dL [facility] Comment: Interpretive Data Fasting glucose >/= 126 mg/dl is diagnostic for diabetes. Fasting is defined as no caloric intake for at least 8 hours. Fasting glucose between 100 mg/dl to 125 mg/dl is diagnostic of prediabetes. In a patient with classic symptoms of hyperglycemia or hyperglycemic crisis, a random glucose >/= 200 mg/dl is diagnostic for diabetes. In the absence of unequivocal hyperglycemia, results should be confirmed by repeat testing. The classification and Diagnosis of Diabetes Diabetes Care 202; 46: S19-S40. Current interpretive data was last revised 2022. Calcium 8.9 8.5 - 10.3 mg/dL [facility] Blood 10/16/2024 4:56 PM BILLING ANALYST 10/16/2024 5:44 PM BILLING ANALYST Narrative [facility] - 10/16/2024 6:36 PM BILLING ANALYST To be drawn at the end of obina infusion Amilcar Sarabia MD LAB BLOOD ORDERABLES Final R esult Performing Organization Address City/[facility]/ZIP Co de Phone Number [facility] Department [place] [address] * (ABNORMAL) eGFR (10/16/2024 9:07 AM BILLING ANALYST) Pathologist [facility] eGFR 27(L) >=60 mL/min/1. 73 m2 Comment: Interpretive Data Reference Interval Normal >/= 90 mL/min/1.73m2 Mildly decreased* 60 - 89 mL/min/1.73m2 Mildly to moderately decreased 45 - 59 mL/min/1.73m2 Moderately to severely decreased 30 - 44 mL/min/1.73m2 Severely decreased 15 - 29 mL/min/1.73m2 Kidney Failure < 15 mL/min/1.73m2 *Relative to young adult level Estimated glomerular filtration rate is determined by the 2020 CKD-EPI equation recommended by the National Kidney Foundation (A Unifying Approach to GFR Estimation: Recommendations of the NKF-ASK Task Force on Reassessing the Inclusion of Race in Diagnosing Kidney Disease, JASN 2020). The CKD-EPI equation should not be used for patients with unstable renal function and has not been validated in children and those over 70. Current interpretive data was last reviewed 2021. Blood 10/16/2024 9:07 AM BILLING ANALYST 10/16/2024 9:13 AM BILLING ANALYST us Amilcar Sarabia MD LAB BLOOD ORDERABLES Final R esult [facility] Department [place] [address] * (ABNORMAL) CBC without differential (10/16/2024 9:07 AM BILLING ANALYST) [facility] WBC 9.5 3.8 - 9.9 K/cumm Comment:Testing performed by : [facility], [address] [place] [phone] Hgb 8.9(L) 13.0 - 17.5 g/dL BEN CERRATO Comment:Testing performed by : [facility], [address] [place] [phone] Hct 28.4(L) 38.9 - 50.3 % BEN CERRATO Comment:Testing performed by : [facility], [address] [place] [phone] Plt 87(L) 150 - 400 K/cumm [facility] Comment:Testing performed by : [facility], [address] [place], [place] [phone] MPV 8.5 6.8 - 10.4 fL [facility] Comment:Testing performed by : [facility], [address] [place], [place] [phone] RBC 3.39(L) 4.30 - 5.80 M/cumm BEN CERRATO Comment:Testing performed by : [facility], [address] [place], [place] [phone] MCV 83.7 81.3 - 96.4 fL [facility] Comment:Testing performed by : [facility], [address] [place], [place] [phone] MCH 26.3(L) 27.1 - 33.3 pg [facility] Comment:Testing performed by : [facility], [address] [place], [place] [phone] MCHC 31.4(L) 32.3 - 35.7 g/dL [facility] Comment:Testing performed by : [facility], [address] [place] [address] RDW CV 16.9(H) 11.1 - 14.9 % [facility] Comment:Testing performed by : [facility], [address] [place] [address] Blood 10/16/2024 9:07 AM BILLING ANALYST 10/16/2024 9:19 AM BILLING ANALYST Cas Taylor MD LAB BLOOD ORDERABLES Fin al Result [facility] Department [place] [address] * Uric acid (10/16/2024 9:07 AM BILLING ANALYST) Uric acid 6.1 3.0 - 8.0 mg/dL Blood 10/16/2024 9:07 AM BILLING ANALYST 10/16/2024 9:13 AM BILLING ANALYST Amilcar Sarabia MD LAB BLOOD ORDERABLES Final R esult Performing Organization Address [facility] Co de Phone Number [facility] [place] [address] * Phosphorus (10/16/2024 9:07 AM BILLING ANALYST) Pathologist [facility] Phosphorus, pl 4.1 2.3 - 4.5 mg/dL Blood 10/16/2024 9:07 AM BILLING ANALYST 10/16/2024 9:13 AM BILLING ANALYST us Amilcar Sarabia MD LAB BLOOD ORDERABLES Final R ult Performing Organization Address [facility] [place] [address] * (ABNORMAL) Lactate dehydrogenase (LD) (10/16/2024 9:07 AM BILLING ANALYST) [facility] Lactate dehydrogenase (LDH) 257(H) 100 - 250 Units/L Blood 10/16/2024 9:07 AM BILLING ANALYST 10/16/2024 9:13 AM BILLING ANALYST us Amilcar Sarabia MD LAB BLOOD ORDERABLES Final R esult Performing Organization Address [facility] de Phone Number [facility] [place] [address] * (ABNORMAL) Basic metabolic panel (10/16/2024 9:07 AM BILLING ANALYST) Pathologist [facility] Sodium 145 135 - 145 mmol/L Potassium, pl 4.6 3.3 - 4.9 mmol/L [facility] Chloride 108 97 - 110 mmol/L [facility] CO2 27 22 - 32 mmol/L [facility] Anion gap 10 2 - 15 mmol/L [facility] BUN 38(H) 6 - 25 mg/dL [facility] Creatinine 2.38(H) 0.80 - 1.30 mg/dL [facility] Glucose 125 70 - 199 mg/dL [facility] Comment: Interpretive Data Fasting glucose >/= 126 mg/dl is diagnostic for diabetes. Fasting is defined as no caloric intake for at least 8 hours. Fasting glucose between 100 mg/dl to 125 mg/dl is diagnostic of prediabetes. In a patient with classic symptoms of hyperglycemia or hyperglycemic crisis, a random glucose >/= 200 mg/dl is diagnostic for diabetes. In the absence of unequivocal hyperglycemia, results should be confirmed by repeat testing. The classification and Diagnosis of Diabetes Diabetes Care 2021; 46: S19-S40. Current interpretive data was last revised 2022. Calcium 9.2 8.5 - 10.3 mg/dL [facility] Blood 10/16/2024 9:07 AM BILLING ANALYST 10/16/2024 9:13 AM BILLING ANALYST us Amilcar Sarabia MD LAB BLOOD ORDERABLES Final R esult Performing Organization Address City/[facility]/ZIP Co de Phone Number [facility] Department [place] [address] * Hepatitis C antibody Blood (10/15/2024 9:53 AM BILLING ANALYST) Pathologist [facility] Hep C Ab Nonreactive Nonreactive Comment:Antibodies to HCV no t detected. Does NOT exclude the possibility of recent exposure to HCV. Current interpretive data was last revised on 22 Blood 10/15/2024 9:53 AM BILLING ANALYST 10/15/2024 10:33 AM BILLING ANALYST Amilcar Sarabia MD LAB MICROBIOLOGY - GENERAL O RDERABLES Final Result Performing Organization Address City/[facility]/ZIP Co de Phone Number [facility] [place] [address] * Hepatitis B core antibody, total Blood (10/15/2024 9:53 AM BILLING ANALYST) Pathologist [facility] Hep B core IgG/IgM Nonreactive Nonreactive Blood 10/15/2024 9:53 AM BILLING ANALYST 10/15/2024 10:33 AM BILLING ANALYST Amilcar Sarabia MD LAB MICROBIOLOGY - GENERAL O RDERABLES Final Result Performing Organization Address City/[facility] Co de Phone Number [facility] [place] [address] * Hepatitis B surface antibody (immune status) Blood (10/15/2024 9:53 AM BILLING ANALYST) Pathologist [facility] HBsAb (immune status) Nonreactive Comment:This result is consi stent with a lack of immunity to Hepatitis B Virus when used in the setting of routine screening. Current interpretative data was last revised on 22 Blood 10/15/2024 9:53 AM BILLING ANALYST 10/15/2024 10:33 AM BILLING ANALYST Amilcar Sarabia MD LAB MICROBIOLOGY - GENERAL O RDERABLES Final Result Performing Organization Address [facility] [place] [address] * Hepatitis B Surface Antigen Blood (10/15/2024 9:53 AM BILLING ANALYST) Pathologist [facility] HepBsAg Nonreactive Nonreactive Blood 10/15/2024 9:53 AM BILLING ANALYST 10/15/2024 10:33 AM BILLING ANALYST Amilcar Sarabia MD LAB MICROBIOLOGY - GENERAL O RDERABLES Final Result Performing Organization Address City/[facility] Co de Phone Number [facility] [place] [address] * (ABNORMAL) eGFR (10/15/2024 7:37 AM BILLING ANALYST) Pathologist [facility] eGFR 38(L) >=60 mL/min/1. 73 m2 Comment: Interpretive Data Reference Interval Normal >/= 90 mL/min/1.73m2 Mildly decreased* 60 - 89 mL/min/1.73m2 Mildly to moderately decreased 45 - 59 mL/min/1.73m2 Moderately to severely decreased 30 - 44 mL/min/1.73m2 Severely decreased 15 - 29 mL/min/1.73m2 Kidney Failure < 15 mL/min/1.73m2 *Relative to young adult level Estimated glomerular filtration rate is determined by the 2020 CKD-EPI equation recommended by the National Kidney Foundation (A Unifying Approach to GFR Estimation: Recommendations of the NKF-ASK Task Force on Reassessing the Inclusion of Race in Diagnosing Kidney Disease, JASN 2020). The CKD-EPI equation should not be used for patients with unstable renal function and has not been validated in children and those over 70. Current interpretive data was last reviewed 2021. Blood 10/15/2024 7:37 AM BILLING ANALYST 10/15/2024 7:43 AM BILLING ANALYST us Amilcar Sarabia MD LAB BLOOD ORDERABLES Final R esult [facility] Department [place] [address] * (ABNORMAL) CBC with auto differential (10/15/2024 7:37 AM BILLING ANALYST) WBC 37.4(H) 3.8 - 9.9 K/cumm Comment:Testing performed by : [facility], [address] [place] [address] Hgb 9.1(L) 13.0 - 17.5 g/dL [facility] Comment:Testing performed by : [facility], [address] [place] [address] Hct 28.9(L) 38.9 - 50.3 % BEN CERRATO Comment:Testing performed by : [facility], [address] [place] [address] Plt 105(L) 150 - 400 K/cumm BEN C[facility]AT[facility] Comment:Testing performed by : [facility], [address] [place] [address] MPV 8.3 6.8 - 10.4 fL [facility] Comment:Testing performed by : [facility], [address] [place] [address] RBC 3.42(L) 4.30 - 5.80 M/cumm BEN CERR[facility] Comment:Testing performed by : [facility], [address] [place] [address] MCV 84.3 81.3 - 96.4 fL [facility] Comment:Testing performed by : [facility], [address] [place] [address] MCH 26.5(L) 27.1 - 33.3 pg [facility] Comment:Testing performed by : [facility], [address] [place], [place] [phone] MCHC 31.5(L) 32.3 - 35.7 g/dL [facility] Comment:Testing performed by : [facility], [address] [place] [address] RDW CV 17.1(H) 11.1 - 14.9 % [facility] Comment:Testing performed by : [facility], [address] [place] [address] NRBC abs 0.00 0.00 - 0.01 K/cumm [facility] Comment:Testing performed by : [facility], [address] [place] [address] Blood 10/15/2024 7:37 AM BILLING ANALYST 10/15/2024 7:41 AM BILLING ANALYST us Amilcar Sarabia MD LAB BLOOD ORDERABLES Edited Result - Final [facility] Department [place] [address] * (ABNORMAL) Manual Differential (10/15/2024 7:37 AM BILLING ANALYST) Cells Counted 200 Comment:Testing performed by : [facility], [address] [place] [phone] Neutrophil abs 3.7 1.5 - 6.5 K/cumm [facility] Comment:Testing performed by : [facility], [address] [place] [phone] Lymphocyte abs 33.7(H) 0.8 - 3.3 K/cumm [facility] Comment:Testing performed by : [facility], [address] [place] [phone] Monocyte abs 0.4 0.2 - 0.8 K/cumm [facility] Comment:Testing performed by : [facility], [address] [place], [place] [phone] Eosinophil abs 0.0 0.0 - 0.5 K/cumm [facility] Comment:Testing performed by : [facility], [address] [place], [place] [phone] Basophil abs 0.0 0.0 - 0.1 K/cumm [facility] Comment:Testing performed by : [facility], [address] [place] [phone] Neutrophil pct 10.0 % [facility] Comment: Interpretive Data Percent cell count reference ranges are not reported, since discordance with absolute values may lead to misinterpretation of CBC data. Current Interpretive Data was last revised on 2018. Testing performed by: [facility], [address] [place] [phone] Lymphocyte pct 90.0 % [facility] Comment: Interpretive Data Percent cell count reference ranges are not reported, since discordance with absolute values may lead to misinterpretation of CBC data. Current Interpretive Data was last revised on 2018. Testing performed by: [facility], [address] [place] [phone] Monocyte pct 1.0 % [facility] Comment: Interpretive Data Percent cell count reference ranges are not reported, since discordance with absolute values may lead to misinterpretation of CBC data. Current Interpretive Data was last revised on 2018. Testing performed by: [facility], [address] [place] [phone] Eosinophil pct 0.0 % [facility] Comment: Interpretive Data Percent cell count reference ranges are not reported, since discordance with absolute values may lead to misinterpretation of CBC data. Current Interpretive Data was last revised on 2018. Testing performed by: [facility], [address] [place] [phone] Basophil pct 0.0 % [facility] Comment: Interpretive Data Percent cell count reference ranges are not reported, since discordance with absolute values may lead to misinterpretation of CBC data. Current Interpretive Data was last revised on 2018. Testing performed by: [facility], [address] [place] [id number] Microcytes 1+(A) BEN CERRATO Comment:Testing performed by : [facility], [address] [place] [phone] Elliptocytes 1+(A) BEN CERRATO Comment:Testing performed by : [facility], [address] [place] [phone] Platelet estimate Decreased (A) BEN CERRATO Comment:Testing performed by : [facility], [address] [place] [phone] Blood 10/15/2024 7:37 AM BILLING ANALYST 10/15/2024 7:41 AM BILLING ANALYST us Amilcar Sarabia MD LAB BLOOD ORDERABLES Final R esult Performing Organization Address City/[facility] Co de Phone Number BEN [facility] Department [place] [address] * Uric acid (10/15/2024 7:37 AM BILLING ANALYST) Uric acid 5.3 3.0 - 8.0 mg/dL Blood 10/15/2024 7:37 AM BILLING ANALYST 10/15/2024 7:43 AM BILLING ANALYST Amilcar Sarabia MD LAB BLOOD ORDERABLES Final R esult Performing Organization Address City/[facility] Co de Phone Number BEN [facility] Department [place] [address] * Phosphorus (10/15/2024 7:37 AM BILLING ANALYST) Pathologist [facility] Phosphorus, pl 3.7 2.3 - 4.5 mg/dL Blood 10/15/2024 7:37 AM BILLING ANALYST 10/15/2024 7:43 AM BILLING ANALYST Amilcar Sarabia MD LAB BLOOD ORDERABLES Final R esult Performing Organization Address City/[facility]/ZIP Co de Phone Number [facility] [place] [place] [address] * Lactate dehydrogenase (LD) (10/15/2024 7:37 AM BILLING ANALYST) [facility] Lactate dehydrogenase (LDH) 170 100 - 250 Units/L Blood 10/15/2024 7:37 AM BILLING ANALYST 10/15/2024 7:43 AM BILLING ANALYST Amilcar Sarabia MD LAB BLOOD ORDERABLES Final R esult Performing Organization Address City/[facility] [place] [address] * (ABNORMAL) Comprehensive metabolic panel (10/15/2024 7:37 AM BILLING ANALYST) Pathologist [facility] Sodium 146(H) 135 - 145 mmol/L Potassium, pl 4.1 3.3 - 4.9 mmol/L [facility] Chloride 111(H) 97 - 110 mmol/L [facility] CO2 28 22 - 32 mmol/L [facility] Anion gap 7 2 - 15 mmol/L [facility] BUN 28(H) 6 - 25 mg/dL [facility] Creatinine 1.82(H) 0.80 - 1.30 mg/dL [facility] Glucose 121 70 - 199 mg/dL [facility] Comment: Interpretive Data Fasting glucose >/= 126 mg/dl is diagnostic for diabetes. Fasting is defined as no caloric intake for at least 8 hours. Fasting glucose between 100 mg/dl to 125 mg/dl is diagnostic of prediabetes. In a patient with classic symptoms of hyperglycemia or hyperglycemic crisis, a random glucose >/= 200 mg/dl is diagnostic for diabetes. In the absence of unequivocal hyperglycemia, results should be confirmed by repeat testing. The classification and Diagnosis of Diabetes Diabetes Care 2021; 46: S19-S40. Current interpretive data was last revised 2022. Calcium 9.4 8.5 - 10.3 mg/dL [facility] Bilirubin, total 0.3 0.1 - 1.2 mg/dL [facility] Protein, pl 6.7 6.5 - 8.5 g/dL [facility] Albumin 4.0 3.5 - 5.0 g/dL [facility] Alk phos 93 40 - 130 Units/L [facility] ALT 20 7 - 55 Units/L [facility] AST 31 10 - 50 Units/L [facility] Blood 10/15/2024 7:37 AM BILLING ANALYST 10/15/2024 7:43 AM BILLING ANALYST Amilcar Sarabia MD LAB BLOOD ORDERABLES Final R esult [facility] Department of Laboratories [place], [place] [id number] from Last 3 Months Insurance MEDICARE [facility] Member Subscriber Plan / Payer (Ef fective 2017-Present) Name:Wiliam Britt Relation to Subscriber:Self Name:Wiliam Britt Payer ID:[id number] Group ID:Not on file Type:COMMERCIAL Address: [address] [place], [place] MEDICARE [place] Member Subscriber Plan / Payer (Ef fective 2017-Present) Name:Wiliam Britt Relation to Subscriber:Self Name:Wiliam Britt Payer ID:[id number] Group ID:Not on file Type:Pulse 8 Address: [address] [place], [place] Advance Directives For more information, please contact: [phone] * Full Code (Latest Code Status on File) Date Activated Date Inactivated Comments 03/14/2024 2:50 PM 03/22/2024 5:48 PM * Full Code Date Activated Date Inactivated Comments 03/11/2024 10:34 PM 03/14/2024 2:49 PM Care Teams Program Instructor Relationship Specialty Start Date End Date Kyle Hendricks MD PCP - General 04/06/17 Amilcar Sarabia MD Medical Oncologist/Lithograph Press Operator [facility] 05/24/22 Cas Taylor MD [id number] [place] [address] Consulting Physician Cardiothoracic Surgery 03/22/24
--- OUTSIDE RECORDS SUMMARY | 2025-01-09 02:25 | XMS_ITS ---
Author Organization [facility] Address [address] [place] [address] Care Team Providers Care Fly Setter Name Role Phone Kyle Hendricks MD Primary Care Provider [phone] Amilcar Sarabia MD Unavailable [phone] Cas Taylor MD Unavailable [phone] Active Problems Problem Noted Date Diagnosed Date [...] Plan (03/21/2024 2:47 PM CDT): - Dx 2004. Has been on observation since dx. Low tumor burden. - patient followed by Dr. Sarabia from [facility] - Per BMT team, CLL stable disease okay to proceed with cardiac interventions such as CABG - Counts overall stable--> WBC mildly increased w/ mild decreased in hgb and platelets. 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 Treatment Medications Current Day (Day 1 , Cycle 5 - Planned for 02/04/2025) Next Day (Day 1, Cycle 6 - Planned for 03/04/2025) oBINUtuzumab (GAVYZA)oBINutuzumab (GAZYVA) IVPB 1,000 mg in 290 mLoBINutuzumab (GAZYVA) IVPB 100 mg in 100 mLoBINutuzumab (GAZYVA) IVPB 900 mg in 250 mLvenetoclax (VENCLEXTA)venetoclax (VENCLEXTA) 10 mg-50 mg- 100 mg oBINutuzumab (GAZYVA) 1,000 mg in sodium chloride 0.9% 290 mL IVPBvenetoclax (VENCLEXTA) 100 mg tablet oBINutuzumab (GAZYVA) 1,000 mg in sodium chloride 0.9% 290 mL IVPBvenetoclax (VENCLEXTA) 100 mg tablet Past Treatment and Therapy Plans Specialty Infusion Treatment Plan Name Start Date Discontinue Date Treatment Medications Discontinue Reason Plan Provider Ferric Carboxymaltose (INJECTAFER) Infusion 12/10/2024 01/05/2025 No medications scheduled. Therapy Complete Jolie Machuca, ELLIOT Maddox 300 mg/300 mg Standard Dose 05/24/2022 11/28/2022 No medications scheduled. Therapy Complete Amilcar Sarabia MD [facility] - EMERGENCY USE AUTHORIZATION 12/02/2021 01/26/2022 No medications scheduled. Therapy Complete Amilcar Sarabia MD Lifetime Dose Tracking * Chemical Lifetime Dose Automatic Entry Manual Entr y DLP 2,068 mGycm 2,068 mGycm 0 mGycm Resolved Problems Problem Noted Date Diagnosed Date Resolved Date Coronary artery disease 03/13/202403/08 Immunocompromised 11/25/2021 11/28/2022
--- OUTSIDE RECORDS SUMMARY | 2025-01-09 02:25 | XMS_ITS | Clinical Summary ---
Author Organization [facility] Address [address] [place] [address] Care Team Providers Care Rubber Compounder Name Role Phone Kyle Hendricks MD Primary Care Provider [phone] Amilcar Sarabia MD Unavailable [phone] Cas Taylor MD Unavailable [phone] Allergies Active Allergy Reactions Criticality Noted Date [...] leukemia, without mention of having achieved remission(204.10) ([facility]LY [facility]) Take 1 tablet (10 mg total) by [...] leukemia, without mention of having achieved remission(204.10) ([facility]) TAKE 1 TABLET BY MOUTH EVERY DAY. [...] - patient followed by Dr. Sarabia from [facility] - Per BMT team, CLL stable disease okay to proceed with cardiac interventions such as CABG - Counts overall stable--> WBC mildly increased w/ mild decreased in hgb and platelets. 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 Assessment & Plan (03/21/2024 2:42 PM CDT): 03/14: CABGx4 (VILLALTA-LAD, MME-NH-Myqih PLB, SVG-PDA), JOYCE clip (40mm) -TTF on [...] Coronary artery disease 03/13/202403/08 Immunocompromised 11/25/2021 11/28/2022 Encounters Date Type Department Care Team Description 01/07/2025 10:00 AM CDT Infusion [facility] - Infusion [address] [place] [address] 6 [place] [address] Chemotherapy-induced neutropenia (Primary Dx); Chronic lymphoid leukemia, without mention of having achieved remission(204.10) (HCC) 01/07/2025 9:00 AM CDT Office Visit [facility] On[facility] [address] [place] [phone] Jolie Iraheta NP CLL (chronic lymphocytic leukemia) ([facility]) (Primary Dx); Chronic lymphoid leukemia, without mention of having achieved remission(204.10) ([facility]); Chemotherapy-induced neutropenia 01/07/2025 8:00 AM CDT Lab [facility] On[facility] Lab [address] [place] [phone] Chronic lymphoid leukemia, without mention of having achieved remission(204.10) ([facility]); Chemotherapy-induced neutropenia 01/07/2025 7:45 AM CDT Clinical Support [facility] - Lab Collection [facility] 6 [place] [address] Chronic lymphoid leukemia, without mention of having achieved remission(204.10) ([facility]) 12/17/2024 7:30 AM CDT Infusion [facility] - Infusion [address] 6 [place] [address] Iron deficiency anemia, unspecified iron deficiency anemia type (Primary Dx); CLL (chronic lymphocytic leukemia) (HCC); Chronic lymphoid leukemia, without mention of having achieved remission(204.10) ([facility]) 12/10/2024 2:30 PM RF TECHNICIAN Infusion [facility] - Infusion [address] [place] [address] Ave Floor 6 [place] [address] CLL (chronic lymphocytic leukemia) ([facility]) 12/10/2024 9:30 AM RF TECHNICIAN Infusion [facility] - Infusion [address] [place] [address] Ave Floor 6 [place] [address] Chronic lymphoid leukemia, without mention of having achieved remission(204.10) ([facility]) (Primary Dx); Iron deficiency anemia, unspecified iron deficiency anemia type 12/10/2024 8:30 AM RF TECHNICIAN Office Visit [facility] Oncology [address] [place] [address] Floor 6 [place] [phone] Amilcar Sarabia MD CLL (chronic lymphocytic leukemia) ([facility]) (Primary Dx); Chronic lymphoid leukemia, without mention of having achieved remission(204.10) ([facility]) 12/10/2024 7:45 AM RF TECHNICIAN Lab [facility] - Lab Collection [address] [place] [address]e Floor 6 [place] [address] Chronic lymphoid leukemia, without mention of having achieved remission(204.10) ([facility]); CLL (chronic lymphocytic leukemia) ([facility]) 12/10/2024 7:30 AM RF TECHNICIAN Lab [facility] Lab [address] [place] [address] Floor 6 [place] [address] Chronic lymphoid leukemia, without mention of having achieved remission(204.10) ([facility]) 11/26/2024 7:40 AM RF TECHNICIAN Lab [address] [phone] Chronic lymphoid leukemia, without mention of having achieved remission(204.10) ([facility]) 11/26/2024 Telephone [facility] [address] [place] [address] 6 [place] [address] Jolie Iraheta NP 11/19/2024 8:05 AM RF TECHNICIAN Lab [address] [address] Chronic lymphoid leukemia, without mention of having achieved remission(204.10) (HCC) 11/19/2024 Telephone [facility] [address] [place] [address] 6 [place] [address] Leeanna Vela RN 11/19/2024 Orders Only [facility] [address] [place] [address] 6 [place] [address] Leeanna Vela RN Chronic lymphoid leukemia, without mention of having achieved remission(204.10) ([facility]) (Primary Dx) 11/14/2024 Orders Only [facility] [address] [place] [address] 6 [place] [address] Jolie Iraheta NP CLL (chronic lymphocytic leukemia) ([facility]) (Primary Dx) 11/13/2024 8:15 AM RF TECHNICIAN Lab [address] [address] Chronic lymphoid leukemia, without mention of having achieved remission(204.10) ([facility]) 11/13/2024 Telephone [facility] [address] [place] [address] 6 [place] [address] Leeanna Vela RN 11/12/2024 10:00 AM RF TECHNICIAN Infusion [facility] - Infusion [address] [place] [address] Floor 5 [place] [address] Chronic lymphoid leukemia, without mention of having achieved remission(204.10) ([facility]) (Primary Dx) 11/12/2024 9:00 AM RF TECHNICIAN Office Visit [facility] [address] [place] [address] 6 [place] [address] Jolie Iraheta NP CLL (chronic lymphocytic leukemia) ([facility]) (Primary Dx); Chronic lymphoid leukemia, without mention of having achieved remission(204.10) (HCC) 11/12/2024 8:00 AM RF TECHNICIAN Lab [facility] Lab [facility] 6 [place] [address] Chronic lymphoid leukemia, without mention of having achieved remission(204.10) ([facility]) 11/12/2024 7:45 AM RF TECHNICIAN Lab [facility] [place] - Lab Collection [facility] Floor 6 [place] [address] Chronic lymphoid leukemia, without mention of having achieved remission(204.10) ([facility]) 11/06/2024 8:55 AM RF TECHNICIAN Lab [address] [address] Chronic lymphoid leukemia, without mention of having achieved remission(204.10) ([facility]) 11/06/2024 Telephone [facility] [address] [place] [phone] Leeanna Vela RN 11/05/2024 2:45 PM RF TECHNICIAN Lab [facility] [address] [place] [phone] Chronic lymphoid leukemia, without mention of having achieved remission(204.10) ([facility]) 11/05/2024 10:00 AM RF TECHNICIAN Office Visit [facility] [address] [place] [phone] Jolie Iraheta NP Chronic lymphoid leukemia, without mention of having achieved remission(204.10) ([facility]) (Primary Dx) 11/05/2024 9:15 AM RF TECHNICIAN Clinical Support [facility] [place] - Lab Collection [address] [place] [address] 6 [place] [address] Chronic lymphoid leukemia, without mention of having achieved remission(204.10) ([facility]) 11/05/2024 9:00 AM RF TECHNICIAN Lab [facility] Lab [address] [place] [address] 6 [place] [address] Chronic lymphoid leukemia, without mention of having achieved remission(204.10) ([facility]) 11/05/2024 7:08 AM RF TECHNICIAN - 11/05/2024 11:59 PM RF TECHNICIAN [facility] [address] [place] [address] Amilcar Sarabia MD CLL (chronic lymphocytic leukemia) (HCC) Discharge Disposition: Discharge to home or self care 10/29/2024 9:00 AM RF TECHNICIAN Infusion [facility] - [facility] [address] [facility] [address] 6 [place] [address] Chronic lymphoid leukemia, without mention of having achieved remission(204.10) (HCC) (Primary Dx) 10/29/2024 8:00 AM RF TECHNICIAN Lab [facility] - Lab Collection [address] [facility] [address] [place] [address] Chronic lymphoid leukemia, without mention of having achieved remission(204.10) (HCC) 10/23/2024 8:15 AM RF TECHNICIAN Office Visit [facility] [address] [place] [address] Denis Blunt MD Ischemic cardiomyopathy (Primary Dx) 10/22/2024 9:00 AM RF TECHNICIAN Infusion [facility] - Infusion [address] [place] [address] 6 [place] [address] Chronic lymphoid leukemia, without mention of having achieved remission(204.10) (HCC) (Primary Dx) 10/22/2024 8:00 AM RF TECHNICIAN Lab [facility] - Lab Collection [address] [place] [address] 6 [place] [address] Chronic lymphoid leukemia, without mention of having achieved remission(204.10) (HCC); 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 10/17/2024 Documentation [facility] - Infusion Pharmacy [address] [place] [address] Leni Bull, EDILA FINANCIAL ASSIST [employer] 10/17/2024 Telephone [facility] [address] [place] [address] Floor 6 [place] [phone] Leni So, TEJA 10/16/2024 10:00 AM RF TECHNICIAN Infusion [facility] - Infusion [address] [place], [place] [address]e [facility] 6 [place] [address] Chronic lymphoid leukemia, without mention of having achieved remission(204.10) (HCC) (Primary Dx) 10/16/2024 9:00 AM RF TECHNICIAN Lab [facility] - Lab Collection [address] [facility] [address] [place] [address] Chronic lymphoid leukemia, without mention of having achieved remission(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.10) ([facility]); 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 10/16/2024 Orders Only [facility] [address] [place] [phone] Amilcar Sarabia MD Chronic lymphoid leukemia, without mention of having achieved remission(204.10) ([facility]) (Primary Dx) 10/15/2024 9:30 AM RF TECHNICIAN Infusion [facility] - Infusion [address] [place] [address] Chronic lymphoid leukemia, without mention of having achieved remission(204.10) ([facility]) (Primary Dx) 10/15/2024 8:15 AM RF TECHNICIAN Office Visit [facility] [address] [place] [phone] Amilcar Sarabia MD CLL (chronic lymphocytic leukemia) ([facility]) (Primary Dx); Chronic lymphoid leukemia, without mention of having achieved remission(204.10) ([facility]) 10/15/2024 7:30 AM RF TECHNICIAN Lab [facility] - Lab Collection [address] [place] [address] Chronic lymphoid leukemia, without mention of having achieved remission(204.10) ([facility]); CLL (chronic lymphocytic leukemia) ([facility]) 10/15/2024 7:15 AM RF TECHNICIAN Lab [facility] Lab [address] [place] [phone] Chronic lymphoid leukemia, without mention of having achieved remission(204.10) ([facility]) 10/15/2024 Documentation [facility] [address] [place] [phone] Tanesha Pacheco, Edson Appointment 10/14/2024 Telephone [facility] [address] [place] [phone] Leni So RN from Last 3 Months Immunizations Immunization Administration Dates Next Due Influenza, Quad, Adjuvantate d, Intramuscular 07/30/2022 Influenza, Quadrivalent, Hig h Dose, Preservative Free, Intrr 07/15/2020 Influenza, Quadrivalent, Spl it, Preservative Free, Intramuscular 07/13/2021 Influenza, Trivalent, High D ose, Split, Preservative Free, Intramuscular 07/03/2019 Pfizer SARS-CoV-2 Monovalent Vaccination (12+ Yrs) PURPLE 11/07/2021,12/24/2020,12/03/2020 Pneumococcal Conjugate PCV 13 06/13/2018 Pneumococcal Polysaccharide PPV23 07/03/2019, Tdap 05/02/2012 Surgical History Surgery Date Site/Laterality Comments CORONARY ARTERY BYPASS GRAFT 10/08/2023 - 10/07/2024 Family History Medical History Relation Name Comments Prostate cancer Father Heart disease Mother Hypertension Mother Stroke Mother No Known Problems Sister Relation Name Status Comments Father Mother Sister Alive Social History Tobacco Use Types Packs/Day Years [...] on file Legal Sex Male 6:26 PM RF TECHNICIAN Gender Identity Not on file Sexual Orientation Not on file Obstetrics History Last Filed Vital Signs Vital Sign Reading [...] cm (6' 3 ) 11/05/2024 8:35 AM RF TECHNICIAN Body Mass Index 24.32 11/05/2024 8:35 AM RF TECHNICIAN Plan of Treatment Health Maintenance Due Date Last Done Comments Depression Screening 1945 Zoster Vaccine (1 of 2) 1966 Well Visit 65+ 01/18/2012 DTaP/Tdap/Td Vaccine (2 - Td or Tdap) 05/02/2022 05/02/2012 Covid-19 Vaccine (7 - 2023-2 5 season) 2024 09/20/2022, 11/07/2021, 05/26/2021, Additional history exists Fall Risk Assessment 03/22/2025 03/22/2024 Influenza Vaccine (Season Ended) 2025 07/30/2022, 07/13/2021, 07/15/2020, Additional history exists Pneumococcal vaccine 65+ Completed 019, 06/13/2018, 05/02/2012 Hepatitis B Screening Completed 10/15/2024 Hepatitis C Screening Completed 10/15/2024 Abdominal Aortic Aneurysm (A AA) Screen Completed 11/05/2024, 03/12/2024, 04/21/2020 Medical Devices Implanted Type Area Superintendent Landfill Operations Device Identifier Shelf Expiration Date Model / Serial / Lot [employer] Sternalock 360 Sternal Closure 74-0004 - [id number] Implanted:Qty: 1 on 03/14/2024 by Mary Kirk MD at [facility] N/A: Sternum [employer] [id number] 01/15/2029 74-0004 / / [id number] [employer] Sternalock Anshul 2.4mm 12mm Self Drill Lock Sternum Cancellous 73-2412 - [id number] Implanted:Qty: 9 on 03/14/2024 by Mary Kirk MD at [facility] N/A: Sternum [employer] 73-2412 / / [employer] Sternalock Anshul 2.4mm 14mm Self Drill Lock Sternum Cancellous 73-2414 - [id number] Implanted:Qty: 7 on 03/14/2024 by Mary Kirk MD at [facility] N/A: Sternum [employer] 73-2414 / / Atricure Clip Closure Exclusion System Preloaded Standard Left Atrial Appendage Atriclip 40mm [id number] - [id number] Implanted:Qty: 1 on 03/14/2024 by Cas Taylor MD at [facility] Heart [employer] [id number] / / [id number] Procedures Procedure Name Priority Date/Time Associated Diagnosis [...] DIFFERENTIAL AUTO Routine 12/10/2024 8:3 0 AM RF TECHNICIAN CLL (chronic lymphocytic leukemia) (HCC) CBC WITH AUTO DIFFERENTIAL Routine 12/10/2024 8:30 AM RF TECHNICIAN CLL (chronic lymphocytic leukemia) (HCC) EGFR STAT 12/10/2024 8:10 AM RF TECHNICIAN Chronic lymphoid leukemia, without mention of having achieved remission(204.10) (HCC) BETA 2 MICROGLOBULIN SERUM Routine 12/10/2024 8:10 AM RF TECHNICIAN Chronic lymphoid leukemia, without mention of having achieved remission(204.10) (HCC) COMPREHENSIVE METABOLIC PANEL STAT 12/10/2024 8:10 AM RF TECHNICIAN Chronic lymphoid leukemia, without mention of having achieved remission(204.10) (HCC) LACTATE DEHYDROGENASE Routine 12/10/2024 8:10 AM RF TECHNICIAN Chronic lymphoid leukemia, without mention of having achieved remission(204.10) (HCC) EGFR STAT 11/26/2024 7:51 AM RF TECHNICIAN Chronic lymphoid leukemia, without mention of having achieved remission(204.10) (HCC) DIFFERENTIAL AUTO STAT 11/26/2024 7:5 1 AM RF TECHNICIAN Chronic lymphoid leukemia, without mention of having achieved remission(204.10) (HCC) CBC WITH AUTO DIFFERENTIAL STAT 11/26/2024 7:51 AM RF TECHNICIAN Chronic lymphoid leukemia, without mention of having achieved remission(204.10) (HCC) COMPREHENSIVE METABOLIC PANEL STAT 11/26/2024 7:51 AM RF TECHNICIAN Chronic lymphoid leukemia, without mention of having achieved remission(204.10) (HCC) PHOSPHORUS STAT 11/26/2024 7:51 AM RF TECHNICIAN Chronic lymphoid leukemia, without mention of having achieved remission(204.10) (HCC) URIC ACID STAT 11/26/2024 7:51 AM RF TECHNICIAN Chronic lymphoid leukemia, without mention of having achieved remission(204.10) (HCC) EGFR STAT 11/19/2024 10:21 AM RF TECHNICIAN Chronic lymphoid leukemia, without mention of having achieved remission(204.10) (HCC) DIFFERENTIAL AUTO STAT 11/19/2024 10: 21 AM RF TECHNICIAN Chronic lymphoid leukemia, without mention of having achieved remission(204.10) (HCC) URIC ACID STAT 11/19/2024 10:21 AM RF TECHNICIAN Chronic lymphoid leukemia, without mention of having achieved remission(204.10) (HCC) PHOSPHORUS STAT 11/19/2024 10:21 AM RF TECHNICIAN Chronic lymphoid leukemia, without mention of having achieved remission(204.10) (HCC) COMPREHENSIVE METABOLIC PANEL STAT 11/19/2024 10:21 AM RF TECHNICIAN Chronic lymphoid leukemia, without mention of having achieved remission(204.10) (HCC) CBC WITH AUTO DIFFERENTIAL STAT 11/19/2024 10:21 AM RF TECHNICIAN Chronic lymphoid leukemia, without mention of having achieved remission(204.10) (HCC) EGFR STAT 11/13/2024 8:21 AM RF TECHNICIAN Chronic lymphoid leukemia, without mention of having achieved remission(204.10) (HCC) URIC ACID STAT 11/13/2024 8:21 AM RF TECHNICIAN Chronic lymphoid leukemia, without mention of having achieved remission(204.10) (HCC) PHOSPHORUS STAT 11/13/2024 8:21 AM RF TECHNICIAN Chronic lymphoid leukemia, without mention of having achieved remission(204.10) (HCC) COMPREHENSIVE METABOLIC PANEL STAT 11/13/2024 8:21 AM RF TECHNICIAN Chronic lymphoid leukemia, without mention of having achieved remission(204.10) (HCC) EGFR STAT 11/12/2024 3:30 PM RF TECHNICIAN Chronic lymphoid leukemia, without mention of having achieved remission(204.10) (HCC) URIC ACID STAT 11/12/2024 3:30 PM RF TECHNICIAN Chronic lymphoid leukemia, without mention of having achieved remission(204.10) (HCC) PHOSPHORUS STAT 11/12/2024 3:30 PM RF TECHNICIAN Chronic lymphoid leukemia, without mention of having achieved remission(204.10) (HCC) BASIC METABOLIC PANEL STAT 11/12/2024 3:30 PM RF TECHNICIAN Chronic lymphoid leukemia, without mention of having achieved remission(204.10) (HCC) IRON PROFILE W/ IBC STAT 11/12/2024 7 :48 AM RF TECHNICIAN Chronic lymphoid leukemia, without mention of having achieved remission(204.10) (HCC) FERRITIN STAT 11/12/2024 7:48 AM RF TECHNICIAN Chronic lymphoid leukemia, without mention of having achieved remission(204.10) (HCC) EGFR STAT 11/12/2024 7:48 AM RF TECHNICIAN Chronic lymphoid leukemia, without mention of having achieved remission(204.10) (HCC) DIFFERENTIAL AUTO STAT 11/12/2024 7:4 8 AM RF TECHNICIAN Chronic lymphoid leukemia, without mention of having achieved remission(204.10) (HCC) CBC WITH AUTO DIFFERENTIAL STAT 11/12/2024 7:48 AM RF TECHNICIAN Chronic lymphoid leukemia, without mention of having achieved remission(204.10) (HCC) COMPREHENSIVE METABOLIC PANEL STAT 11/12/2024 7:48 AM RF TECHNICIAN Chronic lymphoid leukemia, without mention of having achieved remission(204.10) (HCC) LACTATE DEHYDROGENASE Routine 11/12/2024 7:48 AM RF TECHNICIAN Chronic lymphoid leukemia, without mention of having achieved remission(204.10) (HCC) PHOSPHORUS STAT 11/12/2024 7:48 AM RF TECHNICIAN Chronic lymphoid leukemia, without mention of having achieved remission(204.10) (HCC) URIC ACID STAT 11/12/2024 7:48 AM RF TECHNICIAN Chronic lymphoid leukemia, without mention of having achieved remission(204.10) (HCC) EGFR STAT 11/06/2024 9:10 AM RF TECHNICIAN Chronic lymphoid leukemia, without mention of having achieved remission(204.10) (HCC) DIFFERENTIAL AUTO STAT 11/06/2024 9:1 0 AM RF TECHNICIAN Chronic lymphoid leukemia, without mention of having achieved remission(204.10) (HCC) LACTATE DEHYDROGENASE Routine 11/06/2024 9:10 AM RF TECHNICIAN Chronic lymphoid leukemia, without mention of having achieved remission(204.10) (HCC) BETA 2 MICROGLOBULIN SERUM Routine 11/06/2024 9:10 AM RF TECHNICIAN Chronic lymphoid leukemia, without mention of having achieved remission(204.10) (HCC) CBC WITH AUTO DIFFERENTIAL STAT 11/06/2024 9:10 AM RF TECHNICIAN Chronic lymphoid leukemia, without mention of having achieved remission(204.10) (HCC) COMPREHENSIVE METABOLIC PANEL STAT 11/06/2024 9:10 AM RF TECHNICIAN Chronic lymphoid leukemia, without mention of having achieved remission(204.10) (HCC) PHOSPHORUS STAT 11/06/2024 9:10 AM RF TECHNICIAN Chronic lymphoid leukemia, without mention of having achieved remission(204.10) (HCC) URIC ACID STAT 11/06/2024 9:10 AM RF TECHNICIAN Chronic lymphoid leukemia, without mention of having achieved remission(204.10) (HCC) EGFR STAT 11/05/2024 2:43 PM RF TECHNICIAN Chronic lymphoid leukemia, without mention of having achieved remission(204.10) (HCC) BASIC METABOLIC PANEL STAT 11/05/2024 2:43 PM RF TECHNICIAN Chronic lymphoid leukemia, without mention of having achieved remission(204.10) (HCC) PHOSPHORUS STAT 11/05/2024 2:43 PM RF TECHNICIAN Chronic lymphoid leukemia, without mention of having achieved remission(204.10) (HCC) URIC ACID STAT 11/05/2024 2:43 PM RF TECHNICIAN Chronic lymphoid leukemia, without mention of having achieved remission(204.10) (HCC) EGFR STAT 11/05/2024 8:24 AM RF TECHNICIAN Chronic lymphoid leukemia, without mention of having achieved remission(204.10) (HCC) DIFFERENTIAL AUTO STAT 11/05/2024 8:2 4 AM RF TECHNICIAN Chronic lymphoid leukemia, without mention of having achieved remission(204.10) (HCC) CBC WITH AUTO DIFFERENTIAL STAT 11/05/2024 8:24 AM RF TECHNICIAN Chronic lymphoid leukemia, without mention of having achieved remission(204.10) (HCC) COMPREHENSIVE METABOLIC PANEL STAT 11/05/2024 8:24 AM RF TECHNICIAN Chronic lymphoid leukemia, without mention of having achieved remission(204.10) (HCC) PHOSPHORUS STAT 11/05/2024 8:24 AM RF TECHNICIAN Chronic lymphoid leukemia, without mention of having achieved remission(204.10) (HCC) URIC ACID STAT 11/05/2024 8:24 AM RF TECHNICIAN Chronic lymphoid leukemia, without mention of having achieved remission(204.10) (HCC) LACTATE DEHYDROGENASE Routine 11/05/2024 8:24 AM RF TECHNICIAN Chronic lymphoid leukemia, without mention of having achieved remission(204.10) (HCC) CT CHEST ABDOMEN PELVIS W CONTRAST Schedule JAZMIN, Read JAZMIN (Appt Today, Awaiting Results) 11/05/2024 7:50 AM RF TECHNICIAN CLL (chronic lymphocytic leukemia) (HCC) DIFFERENTIAL AUTO STAT 10/29/2024 8:0 7 AM RF TECHNICIAN Chronic lymphoid leukemia, without mention of having achieved remission(204.10) (HCC) CBC WITH AUTO DIFFERENTIAL STAT 10/29/2024 8:07 AM RF TECHNICIAN Chronic lymphoid leukemia, without mention of having achieved remission(204.10) (HCC) EGFR Routine 10/22/2024 8:20 AM RF TECHNICIAN 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 DIFFERENTIAL AUTO STAT 10/22/2024 8:2 0 AM RF TECHNICIAN Chronic lymphoid leukemia, without mention of having achieved remission(204.10) (HCC) COMPREHENSIVE METABOLIC PANEL Routine 10/22/2024 8:20 AM RF TECHNICIAN 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 CBC WITH AUTO DIFFERENTIAL STAT 10/22/2024 8:20 AM RF TECHNICIAN Chronic lymphoid leukemia, without mention of having achieved remission(204.10) (HCC) EGFR STAT 10/16/2024 4:56 PM RF TECHNICIAN Chronic lymphoid leukemia, without mention of having achieved remission(204.10) (HCC) BASIC METABOLIC PANEL STAT 10/16/2024 4:56 PM RF TECHNICIAN Chronic lymphoid leukemia, without mention of having achieved remission(204.10) (HCC) URIC ACID STAT 10/16/2024 4:56 PM RF TECHNICIAN Chronic lymphoid leukemia, without mention of having achieved remission(204.10) (HCC) EGFR STAT 10/16/2024 9:07 AM RF TECHNICIAN Chronic lymphoid leukemia, without mention of having achieved remission(204.10) (HCC) CBC WITHOUT DIFFERENTIAL Routine 10/16/2024 9:07 AM RF TECHNICIAN 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 LACTATE DEHYDROGENASE STAT 10/16/2024 9:07 AM RF TECHNICIAN Chronic lymphoid leukemia, without mention of having achieved remission(204.10) (HCC) URIC ACID STAT 10/16/2024 9:07 AM RF TECHNICIAN Chronic lymphoid leukemia, without mention of having achieved remission(204.10) (HCC) PHOSPHORUS STAT 10/16/2024 9:07 AM RF TECHNICIAN Chronic lymphoid leukemia, without mention of having achieved remission(204.10) (HCC) BASIC METABOLIC PANEL STAT 10/16/2024 9:07 AM RF TECHNICIAN Chronic lymphoid leukemia, without mention of having achieved remission(204.10) (HCC) HEPATITIS C ANTIBODY Routine 10/15/2024 9:53 AM RF TECHNICIAN CLL (chronic lymphocytic leukemia) (HCC) HEPATITIS B SURFACE ANTIGEN Routine 10/15/2024 9:53 AM RF TECHNICIAN CLL (chronic lymphocytic leukemia) (HCC) HEPATITIS B SURFACE ANTIBODY (IMMUNE STATUS) Routine 10/15/2024 9:53 AM RF TECHNICIAN CLL (chronic lymphocytic leukemia) (HCC) HEPATITIS B CORE ANTIBODY, TOTAL Routine 10/15/2024 9:53 AM RF TECHNICIAN CLL (chronic lymphocytic leukemia) (HCC) EGFR STAT 10/15/2024 7:37 AM RF TECHNICIAN Chronic lymphoid leukemia, without mention of having achieved remission(204.10) (HCC) MANUAL DIFFERENTIAL Routine 10/15/2024 7 :37 AM RF TECHNICIAN Chronic lymphoid leukemia, without mention of having achieved remission(204.10) (HCC) CBC WITH AUTO DIFFERENTIAL Routine 10/15/2024 7:37 AM RF TECHNICIAN Chronic lymphoid leukemia, without mention of having achieved remission(204.10) (HCC) COMPREHENSIVE METABOLIC PANEL STAT 10/15/2024 7:37 AM RF TECHNICIAN Chronic lymphoid leukemia, without mention of having achieved remission(204.10) (HCC) PHOSPHORUS STAT 10/15/2024 7:37 AM RF TECHNICIAN Chronic lymphoid leukemia, without mention of having achieved remission(204.10) (HCC) URIC ACID STAT 10/15/2024 7:37 AM RF TECHNICIAN Chronic lymphoid leukemia, without mention of having achieved remission(204.10) (HCC) LACTATE DEHYDROGENASE Routine 10/15/2024 7:37 AM RF TECHNICIAN Chronic lymphoid leukemia, without mention of having [...] ORDERABLES Final R esult Performing Organization Address City/[facility]/ZIP Co de Phone Number [facility] Department [place] [address] * (ABNORMAL) Lactate dehydrogenase (LD) (01/07/2025 8:08 AM CDT) Lactate dehydrogenase (LDH) 281(H) 100 - 250 Units/L Blood 01/07/2025 8:08 AM CDT 01/07/2025 8:20 AM CDT us Amilcar Sarabia MD LAB BLOOD ORDERABLES Final R [facility] Department [place] [address] * (ABNORMAL) Comprehensive metabolic panel (01/07/2025 8:08 AM CDT) Sodium 144 135 - 145 mmol/L Potassium, pl 4.1 3.3 - 4.9 mmol/L [facility] Chloride 110 97 - 110 mmol/L [facility] CO2 24 22 - 32 mmol/L [facility] Anion gap 10 2 - 15 mmol/L [facility] BUN 41(H) 6 - 25 mg/dL [facility] Creatinine 1.55(H) 0.80 - 1.30 mg/dL [facility] Glucose 115 70 - 199 mg/dL [facility] Comment: Interpretive Data Fasting glucose >/= 126 [...] 2022. Calcium 9.6 8.5 - 10.3 mg/dL [facility] Bilirubin, total 0.5 0.1 - 1.2 mg/dL [facility] Protein, pl 7.0 6.5 - 8.5 g/dL [facility] Albumin 4.3 3.5 - 5.0 g/dL [facility] Alk phos 120 40 - 130 Units/L [facility] ALT 39 7 - 55 Units/L [facility] AST 48 10 - 50 Units/L [facility] Comment:Hemolyzed; result ma y be falsely elevated Blood 01/07/2025 8:08 AM CDT 01/07/2025 8:20 AM CDT us Amilcar Sarabia MD LAB BLOOD ORDERABLES Final R esult [facility] Department [place] [address] * (ABNORMAL) Differential, auto (01/07/2025 8:05 AM CDT) Neutrophil abs 1.08(L) 1.50 - 6.50 K/cumm Comment:Testing performed by : [facility] [place][Note 2] Heme Lab, [address] [place] [phone] Lymphocyte abs 0.41(L) 0.80 - 3.30 K/cumm [facility] Comment:Testing performed by : [facility] [place][Note 2] [facility] Lab, [address] [place] [phone] Monocyte abs 0.31 0.20 - 0.80 K/cumm [facility] Comment:Testing performed by : [facility] [place][Note 2] [facility] Lab, [address] [place] [phone] Eosinophil abs 0.04 0.00 - 0.50 K/cumm [facility] Comment:Testing performed by : [facility] [place][Note 2] Heme Lab, [address] [place] [phone] Basophil abs 0.02 0.00 - 0.10 K/cumm [facility] Comment:Testing performed by : [facility] [place][Note 2] [facility]e Lab, [address] [place] [phone] Neutrophil pct 57.9 % [facility] Comment: Interpretive Data Percent cell count reference ranges are not reported, since discordance with absolute values may lead to misinterpretation of CBC data. Current Interpretive Data was last revised on 2018. Testing performed by: [facility], [address] [place] [phone] Lymphocyte pct 22.3 % [facility] Comment: Interpretive Data Percent cell count reference ranges are not reported, since discordance with absolute values may lead to misinterpretation of CBC data. Current Interpretive Data was last revised on 2018. Testing performed by: [facility], [address] [place] [phone] Monocyte pct 16.4 % [facility] Comment: Interpretive Data Percent cell count reference ranges are not reported, since discordance with absolute values may lead to misinterpretation of CBC data. Current Interpretive Data was last revised on 2018. Testing performed by: [facility] [place][Note 2] Heme Lab, [address] [place] [phone] Eosinophil pct 2.2 % [facility] Comment: Interpretive Data Percent cell count reference ranges are not reported, since discordance with absolute values may lead to misinterpretation of CBC data. Current Interpretive Data was last revised on 2018. Testing performed by: [facility] [place][Note 2] Heme Lab, [address] [place] [phone] Basophil pct 1.2 % [facility] Comment: Interpretive Data Percent cell count reference ranges are not reported, since discordance with absolute values may lead to misinterpretation of CBC data. Current Interpretive Data was last revised on 2018. Testing performed by: [facility] [place][Note 2] Heme Lab, [address] [place] [phone] Blood 01/07/2025 8:05 AM CDT 01/07/2025 8:20 AM CDT Amilcar Sarabia MD LAB BLOOD ORDERABLES Final R esult [facility] Department [place] [address] * (ABNORMAL) CBC with auto differential (01/07/2025 8:05 AM CDT) WBC 1.86(L) 3.80 - 9.90 K/cumm Comment:Testing performed by : [facility] [place][Note 2] Heme Lab, [address] [place] [address] Hgb 11.7(L) 13.0 - 17.5 g/dL [facility] Comment:Testing performed by : [facility] [place][Note 2] Heme Lab, [address] [place] [address] Hct 35.4(L) 38.9 - 50.3 % [facility] Comment:Testing performed by : [facility] [place][Note 2] Heme Lab, [address] [place] [address] Plt 106(L) 150 - 400 K/cumm [facility] Comment:Testing performed by : [facility] [place][Note 2] Heme Lab, [address] [place] [address] MPV 8.0 6.8 - 10.4 fL [facility] Comment:Testing performed by : [facility] [place][Note 2] Heme Lab, [address] [place] [address] RBC 4.25(L) 4.30 - 5.80 M/cumm [facility] Comment:Testing performed by : [facility] [place][Note 2] Heme Lab, [address] [place] [address] MCV 83.3 81.3 - 96.4 fL [facility] Comment:Testing performed by : [facility] [place][Note 2] Heme Lab, [address] [place], [place] [phone] MCH 27.5 27.1 - 33.3 pg [facility] Comment:Testing performed by : [facility] [place][Note 2] Heme Lab, [address] [place], [place] [phone] MCHC 33.0 32.3 - 35.7 g/dL [facility] Comment:Testing performed by : [facility] [place][Note 2] Heme Lab, [address] [place], [place] [phone] RDW CV 23.9(H) 11.1 - 14.9 % [facility] Comment:Testing performed by : [facility] [place][Note 2] Heme Lab, [address] [place] [phone] NRBC abs 0.00 0.00 - 0.01 K/cumm [facility] Comment:Testing performed by : [facility] [place][Note 2] Heme Lab, [address] [place] [phone] Blood 01/07/2025 8:05 AM CDT 01/07/2025 8:20 AM CDT Amilcar Sarabia MD LAB BLOOD ORDERABLES Final R esult Performing Organization Address City/[facility] Co de Phone Number [facility] Department [place] [address] * (ABNORMAL) Beta 2 microglobulin, serum (01/07/2025 [...] ORDERABLES Final R esult Performing Organization Address City/[facility] Co de Phone Number [facility] Department [place] [address] * (ABNORMAL) Differential, auto (12/10/2024 8:30 AM RF TECHNICIAN) Neutrophil abs 2.1 1.5 - 6.5 K/cumm Comment:Testing performed by : [facility] [place][Note 2] Heme Lab, [address] [place] [phone] Lymphocyte abs 0.5(L) 0.8 - 3.3 K/cumm [facility] Comment:Testing performed by : [facility] [place][Note 2] Heme Lab, [address] [place] [phone] Monocyte abs 0.4 0.2 - 0.8 K/cumm [facility] Comment:Testing performed by : [facility] [place][Note 2] Heme Lab, [address] [place], [place] [phone] Eosinophil abs 0.0 0.0 - 0.5 K/cumm [facility] Comment:Testing performed by : [facility] [place][Note 2] Heme Lab, [address] [place] [phone] Basophil abs 0.0 0.0 - 0.1 K/cumm [facility] Comment:Testing performed by : [facility], [address] [place] [phone] Neutrophil pct 67.2 % [facility] Comment: Interpretive Data Percent cell count reference ranges are not reported, since discordance with absolute values may lead to misinterpretation of CBC data. Current Interpretive Data was last revised on 2018. Testing performed by: [facility] [place][Note 2] Heme Lab, [address] [place] [phone] Lymphocyte pct 17.3 % [facility] Comment: Interpretive Data Percent cell count reference ranges are not reported, since discordance with absolute values may lead to misinterpretation of CBC data. Current Interpretive Data was last revised on 2018. Testing performed by: [facility], [address] [place] [phone] Monocyte pct 13.5 % [facility] Comment: Interpretive Data Percent cell count reference ranges are not reported, since discordance with absolute values may lead to misinterpretation of CBC data. Current Interpretive Data was last revised on 2018. Testing performed by: [facility] [place][Note 2] Heme Lab, [address] [place] [phone] Eosinophil pct 1.4 % [facility] Comment: Interpretive Data Percent cell count reference ranges are not reported, since discordance with absolute values may lead to misinterpretation of CBC data. Current Interpretive Data was last revised on 2018. Testing performed by: [facility] [place][Note 2] Heme Lab, [address] [place], [place] [phone] Basophil pct 0.6 % [facility] Comment: Interpretive Data Percent cell count reference ranges are not reported, since discordance with absolute values may lead to misinterpretation of CBC data. Current Interpretive Data was last revised on 2018. Testing performed by: [facility], [address] [place] [phone] Blood 12/10/2024 8:30 AM RF TECHNICIAN 12/10/2024 8:37 AM RF TECHNICIAN Amilcar Sarabia MD LAB BLOOD ORDERABLES Final R esult [facility] Department of Laboratories [place], [place] [id number] * (ABNORMAL) CBC with auto differential (12/10/2024 8:30 AM RF TECHNICIAN) WBC 3.1(L) 3.8 - 9.9 K/cumm Comment:Testing performed by : [facility] [place][Note 2] Heme Lab, [address] [place] [phone] Hgb 10.4(L) 13.0 - 17.5 g/dL [facility] Comment:Testing performed by : [facility] [place][Note 2] Heme Lab, [address] [place] [address] Hct 32.7(L) 38.9 - 50.3 % [facility] Comment:Testing performed by : [facility] [place][Note 2] Heme Lab, [address] [place] [address] Plt 132(L) 150 - 400 K/cumm [facility] Comment:Testing performed by : [facility] [place][Note 2] Heme Lab, [address] [place], [place] [phone] MPV 8.2 6.8 - 10.4 fL [facility] Comment:Testing performed by : [facility] [place][Note 2] Heme Lab, [address] [place], [place] [phone] RBC 4.17(L) 4.30 - 5.80 M/cumm [facility] Comment:Testing performed by : [facility] [place][Note 2] Heme Lab, [address] [place], [place] [phone] MCV 78.3(L) 81.3 - 96.4 fL [facility] Comment:Testing performed by : [facility], [address] [place], [place] [phone] MCH 25.0(L) 27.1 - 33.3 pg [facility] Comment:Testing performed by : [facility] [place][Note 2] Heme Lab, [address] [place], [place] [phone] MCHC 32.0(L) 32.3 - 35.7 g/dL [facility] Comment:Testing performed by : [facility] [place][Note 2] Heme Lab, [address] [place] [address] RDW CV 18.1(H) 11.1 - 14.9 % [facility] Comment:Testing performed by : [facility] [place][Note 2] Heme Lab, [address] [place], [place] [phone] NRBC abs 0.00 0.00 - 0.01 K/cumm [facility] Comment:Testing performed by : [facility] [place][Note 2] Heme Lab, [address] [place] [address] Blood 12/10/2024 8:30 AM RF TECHNICIAN 12/10/2024 8:37 AM RF TECHNICIAN Amilcar Sarabia MD LAB BLOOD ORDERABLES Final R esult [facility] Department [place] [address] * (ABNORMAL) eGFR (12/10/2024 8:10 AM RF TECHNICIAN) Pathologist [facility] eGFR 41(L) >=60 mL/min/1. 73 m2 Comment: [...] last reviewed 2021. Blood 12/10/2024 8:10 AM RF TECHNICIAN 12/10/2024 8:16 AM RF TECHNICIAN us Amilcar Sarabia MD LAB BLOOD ORDERABLES Final R esult Performing Organization Address City/[facility]/ZIP Co de Phone Number [facility] Department [place] [address] * Lactate dehydrogenase (LD) (12/10/2024 8:10 AM RF TECHNICIAN) [facility] Lactate dehydrogenase (LDH) 186 100 - 250 Units/L Blood 12/10/2024 8:10 AM RF TECHNICIAN 12/10/2024 8:16 AM RF TECHNICIAN us Amilcar Sarabia MD LAB BLOOD ORDERABLES Final R esult [facility] Department [place] [address] * (ABNORMAL) Beta 2 microglobulin, serum (12/10/2024 8:10 AM RF TECHNICIAN) Pathologist [facility] Beta 2 Microglobulin, Serum 4.40(H) 1.00 - 2.50 mg/L Comment: Interpretive Data The Tatyana Beta-2 microglobulin assay procedure was used. Results from different manufacturers or methods may not be comparable. Serial testing should be performed using the same method. Blood 12/10/2024 8:10 AM RF TECHNICIAN 12/10/2024 8:45 AM RF TECHNICIAN Amilcar Sarabia MD LAB BLOOD ORDERABLES Final R esult [facility] Department [place] [address] * (ABNORMAL) Comprehensive metabolic panel (12/10/2024 8:10 AM RF TECHNICIAN) [facility] Sodium 141 135 - 145 mmol/L Potassium, pl 4.3 3.3 - 4.9 mmol/L [facility] Chloride 105 97 - 110 mmol/L [facility] CO2 28 22 - 32 mmol/L [facility] Anion gap 8 2 - 15 mmol/L [facility] BUN 33(H) 6 - 25 mg/dL [facility] Creatinine 1.71(H) 0.80 - 1.30 mg/dL [facility] Glucose 134 70 - 199 mg/dL [facility] Comment: Interpretive Data Fasting glucose >/= 126 [...] 2022. Calcium 9.9 8.5 - 10.3 mg/dL [facility] Bilirubin, total 0.7 0.1 - 1.2 mg/dL [facility] Protein, pl 7.5 6.5 - 8.5 g/dL [facility] Albumin 4.5 3.5 - 5.0 g/dL [facility] Alk phos 95 40 - 130 Units/L [facility] ALT 17 7 - 55 Units/L [facility] AST 28 10 - 50 Units/L [facility] Blood 12/10/2024 8:10 AM RF TECHNICIAN 12/10/2024 8:16 AM RF TECHNICIAN us Amilcar Sarabia MD LAB BLOOD ORDERABLES Final R esult [facility] [place] [address] * (ABNORMAL) eGFR (11/26/2024 7:51 AM RF TECHNICIAN) eGFR 44(L) >=60 mL/min/1. 73 m2 Comment: [...] last reviewed 2021. Blood 11/26/2024 7:51 AM RF TECHNICIAN 11/26/2024 8:25 AM RF TECHNICIAN us Jolie Iraheta NP LAB BLOOD ORDE RABLES Final Result [facility] Department [place] [address] * (ABNORMAL) Differential, auto (11/26/2024 7:51 AM RF TECHNICIAN) Neutrophil abs 1.8 1.5 - 6.5 K/cumm [...] revised on 2018. Blood 11/26/2024 7:51 AM RF TECHNICIAN 11/26/2024 8:25 AM RF TECHNICIAN Jolie Iraheta NP LAB BLOOD ORDE ARTI Final Result [facility] ([place]) 1 [facility] Department [place] [address] * (ABNORMAL) CBC with auto differential (11/26/2024 7:51 AM RF TECHNICIAN) WBC 2.7(L) 3.8 - 9.9 K/cumm Hgb [...] RDW CV 15.8(H) 11.1 - 14.9 % [facility] ([place]) RDW SD 47.8 35.7 - 48.1 fL [facility] ([place]) NRBC abs 0.00 0.00 - 0.01 K/cumm [facility] ([place]) Blood 11/26/2024 7:51 AM RF TECHNICIAN 11/26/2024 8:25 AM RF TECHNICIAN Narrative [facility] ([place]) - 11/26/2024 8:28 AM RF TECHNICIAN To be drawn prior to patient taking venetoclax. Jolie Iraheta NP LAB BLOOD ORDE RABLES Final Result Performing Organization Address City/[facility]/ZIP Co de Phone Number [facility] ([place]) [address] [facility] [place] [address] * Uric acid (11/26/2024 7:51 AM RF TECHNICIAN) [facility] Uric acid 3.6 3.0 - 8.0 mg/dL Blood 11/26/2024 7:51 AM RF TECHNICIAN 11/26/2024 8:25 AM RF TECHNICIAN Narrative [facility] ([place]) - 11/26/2024 8:47 AM RF TECHNICIAN To be drawn prior to patient taking venetoclax. Jolie Iraheta LAB BLOOD ORDE RABMEAGAN Final Result Performing Organization Address [facility] Co de Phone Number [facility] ([place]) [address] [place] [address] * Phosphorus (11/26/2024 7:51 AM RF TECHNICIAN) [facility] Phosphorus, pl 4.0 2.3 - 4.5 mg/dL Blood 11/26/2024 7:51 AM RF TECHNICIAN 11/26/2024 8:25 AM RF TECHNICIAN Narrative [facility] ([place]) - 11/26/2024 8:47 AM RF TECHNICIAN To be drawn prior to patient taking venetoclax. Jolie Natalia Iraheta LAB BLOOD ORDE RABLES Final Result Performing Organization Address City/[facility]/ZIP Co de Phone Number [facility] ([place]) [address] [facility] [place] [address] * (ABNORMAL) Comprehensive metabolic panel (11/26/2024 7:51 AM RF TECHNICIAN) [facility] Sodium 139 135 - 145 mmol/L Potassium, pl 4.3 3.3 - 4.9 mmol/L [facility] Chloride 103 97 - 110 [...] [facility] ([place]) Blood 11/26/2024 7:51 AM RF TECHNICIAN 11/26/2024 8:25 AM RF TECHNICIAN Narrative [facility] ([place]) - 11/26/2024 8:47 AM RF TECHNICIAN To be drawn prior to patient taking venetoclax. Jolie Iraheta NP LAB BLOOD ORDRuiz CHI Final Result [facility] ([place]) 1 [facility] Department [place] [address] * (ABNORMAL) eGFR (11/19/2024 10:21 AM RF TECHNICIAN) eGFR 42(L) >=60 mL/min/1. 73 m2 Comment: [...] reviewed 2021. Blood 11/19/2024 10:2 1 AM RF TECHNICIAN 11/19/2024 10:24 AM RF TECHNICIAN Jolie Iraheta NP LAB BLOOD LAUREL CHI Final Result [facility] 1 [facility] Department [place] [address] * (ABNORMAL) Differential, auto (11/19/2024 10:21 AM RF TECHNICIAN) Neutrophil abs 2.2 1.5 - 6.5 K/cumm Imm gran abs 0.0 0.0 - 0.1 K/cumm [facility] ([place]) Lymphocyte abs 0.7(L) 0.8 - 3.3 K/cumm [facility] ([place]) Monocyte abs 0.3 0.2 - 0.8 K/cumm [facility] ([place]) Eosinophil abs 0.1 0.0 - 0.5 K/cumm [facility] ([place]) Basophil abs 0.0 0.0 - 0.1 K/cumm [facility] ([place]) Neutrophil pct 65.4 % [facility] [...] on 2018. Blood 11/19/2024 10:2 1 AM RF TECHNICIAN 11/19/2024 10:24 AM RF TECHNICIAN us Jolie Iraheta NP LAB BLOOD LAUREL CHI Final Result [facility] ([place]) 1 [facility] Department [place] [address] * (ABNORMAL) CBC with auto differential (11/19/2024 10:21 AM RF TECHNICIAN) WBC 3.3(L) 3.8 - 9.9 K/cumm Hgb [...] [facility] ([place]) Blood 11/19/2024 10:2 1 AM RF TECHNICIAN 11/19/2024 10:24 AM RF TECHNICIAN Narrative [facility] ([place]) - 11/19/2024 10:27 AM RF TECHNICIAN To be drawn prior to patient taking venetoclax. Jolie Iraheta [facility] LAB BLOOD LAUREL CHI Final Result [facility] ([place]) 1 [facility] Department [place] [address] * Uric acid (11/19/2024 10:21 AM RF TECHNICIAN) Uric acid 3.7 3.0 - 8.0 mg/dL Blood 11/19/2024 10:2 1 AM RF TECHNICIAN 11/19/2024 10:24 AM RF TECHNICIAN Narrative [facility] ([place]) - 11/19/2024 10:43 AM RF TECHNICIAN To be drawn prior to patient taking venetoclax. us [facility] BLOOD ORDE RABLES Final Result [facility] ([place]) 1 [facility] [place] [address] * Phosphorus (11/19/2024 10:21 AM RF TECHNICIAN) Pathologist [facility] Phosphorus, pl 4.2 2.3 - 4.5 mg/dL Blood 11/19/2024 10:2 1 AM RF TECHNICIAN 11/19/2024 10:24 AM RF TECHNICIAN Narrative [facility] ([place]) - 11/19/2024 10:43 AM RF TECHNICIAN To be drawn prior to patient taking venetoclax. [facility] Hospital[facility] LAB BLOOD ORDE RABLES Final Result Performing Organization Address [facility] Co de Phone Number BEN OLIVAS (JANICE) 1 [facility] [place] [address] * (ABNORMAL) Comprehensive metabolic panel (11/19/2024 10:21 AM RF TECHNICIAN) [facility] Sodium 141 135 - 145 mmol/L Potassium, pl 4.4 3.3 - 4.9 mmol/L [facility] Chloride 105 97 - 110 mmol/L [facility] ([place]ANICE) CO2 26 22 - 32 mmol/L [facility] ([place]) Anion gap 10 2 - 15 mmol/L [facility] ([place]) BUN 42(H) 6 - 25 [...] [facility] ([place]ANICE) Blood 11/19/2024 10:2 1 AM RF TECHNICIAN 11/19/2024 10:24 AM RF TECHNICIAN Narrative [facility] (JANICE) - 11/19/2024 10:43 AM RF TECHNICIAN To be drawn prior to patient taking venetoclax. Jolie Iraheta NP LAB BLOOD LAUREL CHI Final Result [facility] (JANICE) 1 [facility] Department [place] [address] * (ABNORMAL) eGFR (11/13/2024 8:21 AM RF TECHNICIAN) eGFR 45(L) >=60 mL/min/1. 73 m2 Comment: [...] last reviewed 2021. Blood 11/13/2024 8:21 AM RF TECHNICIAN 11/13/2024 8:25 AM RF TECHNICIAN us Amilcar Sarabia MD LAB BLOOD ORDERABLES Final R esult Performing Organization Address City/[facility]/ZIP Co de Phone Number BEN OILVAS ([place]) 1 [facility] [place] [address] * Uric acid (11/13/2024 8:21 AM RF TECHNICIAN) Uric acid 4.1 3.0 - 8.0 mg/dL Blood 11/13/2024 8:21 AM RF TECHNICIAN 11/13/2024 8:25 AM RF TECHNICIAN Narrative BEN OLIVAS ([place]) - 11/13/2024 8:57 AM RF TECHNICIAN To be drawn prior to patient taking venetoclax. us Amilcar Sarabia MD LAB BLOOD ORDERABLES Final R esult Performing Organization Address [facility] Co de Phone Number BEN OLIVAS ([place]) 1 [facility] [place] [address] * Phosphorus (11/13/2024 8:21 AM RF TECHNICIAN) Phosphorus, pl 3.8 2.3 - 4.5 mg/dL Blood 11/13/2024 8:21 AM RF TECHNICIAN 11/13/2024 8:25 AM RF TECHNICIAN Narrative BEN OLIVAS ([place]) - 11/13/2024 8:57 AM RF TECHNICIAN To be drawn prior to patient taking venetoclax. us Amilcar Sarabia MD LAB BLOOD ORDERABLES Final R esult Performing Organization Address City/[facility]/ZIP Co de Phone Number BEN OLIVAS ([place]) 1 [facility] [place] [address] * (ABNORMAL) Comprehensive metabolic panel (11/13/2024 8:21 AM RF TECHNICIAN) Sodium 139 135 - 145 mmol/L Potassium, pl 4.5 3.3 - 4.9 mmol/L [facility] ([place]) Chloride 106 97 - 110 mmol/L [facility] ([place]) CO2 21(L) 22 - 32 mmol/L [facility] ([place]) Anion gap 12 2 - 15 mmol/L [facility] ([place]) BUN 30(H) 6 - 25 mg/dL [facility] ([place]) Creatinine 1.57(H) 0.80 - 1.30 mg/dL [facility] ([place]) Glucose 145 70 - 199 mg/dL [facility] ([place]) [...] Slightly Hemolyzed Specimen Blood 11/13/2024 8:21 AM RF TECHNICIAN 11/13/2024 8:25 AM RF TECHNICIAN Narrative [facility] ([place]) - 11/13/2024 8:57 AM RF TECHNICIAN To be drawn prior to patient taking venetoclax. us Amilcar Sarabia MD LAB BLOOD ORDERABLES Final R esult BEN OLIVAS ([place]) 1 [facility] Department [place] [address] * (ABNORMAL) eGFR (11/12/2024 3:30 PM RF TECHNICIAN) eGFR 39(L) >=60 mL/min/1. 73 m2 Comment: [...] last reviewed 2021. Blood 11/12/2024 3:30 PM RF TECHNICIAN 11/12/2024 3:30 PM RF TECHNICIAN us Jolie Iraheta NP LAB BLOOD ORDE RABLES Final Result [facility] [place] [address] * Uric acid (11/12/2024 3:30 PM RF TECHNICIAN) Uric acid 4.0 3.0 - 8.0 mg/dL Blood 11/12/2024 3:30 PM RF TECHNICIAN 11/12/2024 3:30 PM RF TECHNICIAN Narrative [facility] - 11/12/2024 3:50 PM RF TECHNICIAN To be drawn 6-8 hours after venetoclax dose on day 1. [facility] BLOOD ORDE [facility] Final Result Performing Organization Address [facility] Co de Phone Number [facility] [place] [address] * Phosphorus (11/12/2024 3:30 PM RF TECHNICIAN) Pathologist [facility] Phosphorus, pl 3.5 2.3 - 4.5 mg/dL Blood 11/12/2024 3:30 PM RF TECHNICIAN 11/12/2024 3:30 PM RF TECHNICIAN Narrative [facility] - 11/12/2024 3:50 PM RF TECHNICIAN To be drawn 6-8 hours after venetoclax dose on day 1. [facility] LAB BLOOD ORDE [facility] Final Result Performing Organization Address [facility] [place] [address] * (ABNORMAL) Basic metabolic panel (11/12/2024 3:30 PM RF TECHNICIAN) [facility] Sodium 143 135 - 145 mmol/L Potassium, pl 4.1 3.3 - 4.9 mmol/L [facility] Chloride 109 97 - 110 mmol/L [facility] CO2 30 22 - 32 mmol/L [facility] Anion gap 4 2 - 15 mmol/L [facility] BUN 37(H) 6 - 25 mg/dL [facility] Creatinine 1.77(H) 0.80 - 1.30 mg/dL [facility] Glucose 120 70 - 199 mg/dL [facility] Comment: Interpretive Data Fasting glucose >/= 126 [...] 2022. Calcium 8.8 8.5 - 10.3 mg/dL [facility] Blood 11/12/2024 3:30 PM RF TECHNICIAN 11/12/2024 3:30 PM RF TECHNICIAN Narrative [facility] - 11/12/2024 3:50 PM RF TECHNICIAN To be drawn 6-8 hours after venetoclax dose on day 1. Jolie Iraheta NP LAB BLOOD ORDRuiz CHI Final Result [facility] Department [place] [address] * (ABNORMAL) eGFR (11/12/2024 7:48 AM RF TECHNICIAN) eGFR 34(L) >=60 mL/min/1. 73 m2 Comment: [...] last reviewed 2021. Blood 11/12/2024 7:48 AM RF TECHNICIAN 11/12/2024 8:04 AM RF TECHNICIAN Jolie Iraheta [facility] LAB BLOOD LAUREL CHI Final Result BEN CERRATO [facility] Department [place] [address] * (ABNORMAL) Differential, auto (11/12/2024 7:48 AM RF TECHNICIAN) Neutrophil abs 1.5 1.5 - 6.5 K/cumm Comment:Testing performed by : [facility] [place][Note 2] Heme Lab, [address] [place] [address] Lymphocyte abs 0.6(L) 0.8 - 3.3 K/cumm CERNER BJ Comment:Testing performed by : [facility] [place][Note 2] Heme Lab, [address] [place], [place] [phone] Monocyte abs 0.3 0.2 - 0.8 K/cumm CERNER BJ Comment:Testing performed by : [facility] [place][Note 2] Heme Lab, [address] [place], [place] [phone] Eosinophil abs 0.1 0.0 - 0.5 K/cumm CERNER BJ Comment:Testing performed by : [facility] [place][Note 2] Heme Lab, [address] [place] [phone] Basophil abs 0.0 0.0 - 0.1 K/cumm CERNER BJ Comment:Testing performed by : [facility] [place][Note 2] Heme Lab, [address] [place] [phone] Neutrophil pct 61.0 % CERNER BJ Comment: Interpretive Data Percent cell count reference ranges are not reported, since discordance with absolute values may lead to misinterpretation of CBC data. Current Interpretive Data was last revised on 2018. Testing performed by: [facility] [place][Note 2] Heme Lab, [address] [place], [place] [phone] Lymphocyte pct 23.0 % CERNER BJ Comment: Interpretive Data Percent cell count reference ranges are not reported, since discordance with absolute values may lead to misinterpretation of CBC data. Current Interpretive Data was last revised on 2018. Testing performed by: [facility] [place][Note 2] Heme Lab, [address] [place] [phone] Monocyte pct 10.9 % [facility] [place] Comment: Interpretive Data Percent cell count reference ranges are not reported, since discordance with absolute values may lead to misinterpretation of CBC data. Current Interpretive Data was last revised on 2018. Testing performed by: [facility] [place][Note 2] Heme Lab, [address] [place] [phone] Eosinophil pct 4.2 % [facility] Comment: Interpretive Data Percent cell count reference ranges are not reported, since discordance with absolute values may lead to misinterpretation of CBC data. Current Interpretive Data was last revised on 2018. Testing performed by: [facility] [place][Note 2] Heme Lab, [address] [place] [phone] Basophil pct 0.9 % [facility] Comment: Interpretive Data Percent cell count reference ranges are not reported, since discordance with absolute values may lead to misinterpretation of CBC data. Current Interpretive Data was last revised on 2018. Testing performed by: [facility] [place][Note 2] Heme Lab, [address] [place] [phone] Blood 11/12/2024 7:48 AM RF TECHNICIAN 11/12/2024 7:56 AM RF TECHNICIAN us Jolie Iraheta NP LAB BLOOD ORDE RABLES Final Result [facility] Department [place] [address] * (ABNORMAL) Iron profile w/ IBC (11/12/2024 7:48 AM RF TECHNICIAN) Iron 27(L) 50 - 150 mcg/dL TIBC 407(H) 250 - 400 mcg/dL [facility] Transferrin saturation 7(L) 20 - 50 % [facility] Blood 11/12/2024 7:48 AM RF TECHNICIAN 11/12/2024 8:04 AM RF TECHNICIAN us Amilcar Sarabia MD LAB BLOOD ORDERABLES Final R esult [facility] Department [place] [address] * (ABNORMAL) CBC with auto differential (11/12/2024 7:48 AM RF TECHNICIAN) WBC 2.4(L) 3.8 - 9.9 K/cumm Comment:Testing performed by : [facility] [place][Note 2] Heme Lab, [address] [place] [address] Hgb 9.3(L) 13.0 - 17.5 g/dL CERNER BJ Comment:Testing performed by : [facility] [place][Note 2] Heme Lab, [address] [place] [address] Hct 29.0(L) 38.9 - 50.3 % CERNER BJ Comment:Testing performed by : [facility] [place][Note 2] Heme Lab, [address] [place] [address] Plt 112(L) 150 - 400 K/cumm CERCAROLINA BJ Comment:Testing performed by : [facility] [place][Note 2] Heme Lab, [address] [place] [address] MPV 7.7 6.8 - 10.4 fL [facility]ERNER BJ Comment:Testing performed by : [facility] [place][Note 2] Heme Lab, [address] [place] [address] RBC 3.67(L) 4.30 - 5.80 M/cumm CERNER BJ Comment:Testing performed by : [facility] [place][Note 2] Heme Lab, [address] [place] [address] MCV 79.1(L) 81.3 - 96.4 fL CERNER BJ Comment:Testing performed by : [facility] [place][Note 2] Heme Lab, [address] [place] [address] MCH 25.3(L) 27.1 - 33.3 pg CERNER BJ Comment:Testing performed by : [facility] [place][Note 2] Heme Lab, [address] [place] [address] MCHC 31.9(L) 32.3 - 35.7 g/dL [facility]ER BJ Comment:Testing performed by : [facility] [place][Note 2] Heme Lab, [address] [place] [phone] RDW CV 16.6(H) 11.1 - 14.9 % [facility] Comment:Testing performed by : [facility] [place][Note 2] Heme Lab, [address] [place] [phone] NRBC abs 0.00 0.00 - 0.01 K/cumm [facility] Comment:Testing performed by : [facility] [place][Note 2] Heme Lab, [address] [place] [phone] Blood 11/12/2024 7:48 AM RF TECHNICIAN 11/12/2024 7:56 AM RF TECHNICIAN Narrative [facility] - 11/12/2024 8:02 AM RF TECHNICIAN To be drawn prior to patient taking venetoclax. [facility] Smithfl[facility] LAB BLOOD ORDE RABLES Final Result [facility] [place] [address] * Uric acid (11/12/2024 7:48 AM RF TECHNICIAN) Uric acid 4.2 3.0 - 8.0 mg/dL Blood 11/12/2024 7:48 AM RF TECHNICIAN 11/12/2024 8:04 AM RF TECHNICIAN Narrative [facility] - 11/12/2024 8:30 AM RF TECHNICIAN To be drawn 6-8 hours after venetoclax dose on day 1. [facility] LAB BLOOD ORDE RABLES Final Result [facility] [place] [address] * Phosphorus (11/12/2024 7:48 AM RF TECHNICIAN) Phosphorus, pl 4.4 2.3 - 4.5 mg/dL Blood 11/12/2024 7:48 AM RF TECHNICIAN 11/12/2024 8:04 AM RF TECHNICIAN Narrative [facility] - 11/12/2024 8:30 AM RF TECHNICIAN To be drawn 6-8 hours after venetoclax dose on day 1. Jolie Iraheta [facility] LAB BLOOD ORDE RABMEAGAN Final Result Performing Organization Address [facility] Co de Phone Number [facility] [place] [address] * Lactate dehydrogenase (LD) (11/12/2024 7:48 AM RF TECHNICIAN) Lactate dehydrogenase (LDH) 176 100 - 250 Units/L Blood 11/12/2024 7:48 AM RF TECHNICIAN 11/12/2024 8:04 AM RF TECHNICIAN Narrative [facility] - 11/12/2024 8:30 AM RF TECHNICIAN To be drawn prior to patient taking venetoclax. Jolie Iraheta LAB BLOOD ORDE RABMEAGAN Final Result Performing Organization Address [facility] [place] [address] * (ABNORMAL) Ferritin (11/12/2024 7:48 AM RF TECHNICIAN) Pathologist [facility] Ferritin 23(L) 30 - 400 ng/mL Blood 11/12/2024 7:48 AM RF TECHNICIAN 11/12/2024 8:04 AM RF TECHNICIAN Amilcar Sarabia MD LAB BLOOD ORDERABLES Final R esult Performing Organization Address [facility] Co de Phone Number [place], [place] [id number] * (ABNORMAL) Comprehensive metabolic panel (11/12/2024 7:48 AM RF TECHNICIAN) Sodium 144 135 - 145 mmol/L Potassium, pl 5.1(H) 3.3 - 4.9 mmol/L [facility] Chloride 109 97 - 110 mmol/L [facility] CO2 29 22 - 32 mmol/L [facility] Anion gap 6 2 - 15 mmol/L [facility] BUN 40(H) 6 - 25 mg/dL [facility] Creatinine 2.01(H) 0.80 - 1.30 mg/dL [facility] Glucose 112 70 - 199 mg/dL [facility] Comment: Interpretive Data Fasting glucose >/= 126 [...] 2022. Calcium 9.5 8.5 - 10.3 mg/dL [facility] Bilirubin, total 0.3 0.1 - 1.2 mg/dL [facility] Protein, pl 6.8 6.5 - 8.5 g/dL [facility] Albumin 4.0 3.5 - 5.0 g/dL [facility] Alk phos 103 40 - 130 Units/L [facility] ALT 24 7 - 55 Units/L [facility] AST 33 10 - 50 Units/L [facility] Blood 11/12/2024 7:48 AM RF TECHNICIAN 11/12/2024 8:04 AM RF TECHNICIAN Narrative [facility] - 11/12/2024 8:30 AM RF TECHNICIAN To be drawn prior to patient taking venetoclax. us Jolie Iraheta NP LAB BLOOD LAUREL CHI Final Result [facility] Department [place] [address] * (ABNORMAL) eGFR (11/06/2024 9:10 AM RF TECHNICIAN) eGFR 41(L) >=60 mL/min/1. 73 m2 Comment: [...] last reviewed 2021. Blood 11/06/2024 9:10 AM RF TECHNICIAN 11/06/2024 9:37 AM RF TECHNICIAN us Amilcar Sarabia MD LAB BLOOD ORDERABLES Final R esult [facility] ([place]) 1 [facility] Department of Laboratories [place], [place] [id number] * (ABNORMAL) Differential, auto (11/06/2024 9:10 AM RF TECHNICIAN) Pathologist [facility] Neutrophil abs 1.4(L) 1.5 - 6.5 K/cumm Imm gran abs 0.0 0.0 - 0.1 K/cumm [facility] ([place]) Lymphocyte abs 0.6(L) 0.8 - 3.3 K/cumm [facility] ([place]) Monocyte abs 0.2 0.2 - 0.8 K/cumm [facility] ([place]) Eosinophil abs 0.1 0.0 - 0.5 K/cumm [facility] ([place]) Basophil abs 0.0 0.0 - 0.1 K/cumm [facility] ([place]) Neutrophil pct 61.3 % CERNE R [facility] ([place]) Comment: Interpretive Data Percent cell count reference [...] revised on 2018. Monocyte pct 8.1 % [facility] ([place]) Comment: Interpretive Data Percent cell [...] revised on 2018. Basophil pct 0.4 % [facility] ([place]) Comment: Interpretive Data Percent cell count reference ranges are not reported, since discordance with absolute values may lead to misinterpretation of CBC data. Current Interpretive Data was last revised on 2018. Blood 11/06/2024 9:10 AM RF TECHNICIAN 11/06/2024 9:37 AM RF TECHNICIAN us Amilcar Sarabia MD LAB BLOOD ORDERABLES Final R esult BEN OLIVAS ([place]) 1 [facility] Department of Laboratories [place], [place] [id number] * (ABNORMAL) CBC with auto differential (11/06/2024 9:10 AM RF TECHNICIAN) WBC 2.4(L) 3.8 - 9.9 K/cumm Hgb 9.1(L) 13.0 - 17.5 g/dL BEN OLIVAS ([place]) Hct 30.6(L) 38.9 - 50.3 % [...] [facility] ([place]) Blood 11/06/2024 9:10 AM RF TECHNICIAN 11/06/2024 9:37 AM RF TECHNICIAN Narrative [facility] ([place]) - 11/06/2024 9:41 AM RF TECHNICIAN To be drawn prior to patient taking venetoclax. us Amilcar Sarabia MD LAB BLOOD ORDERABLES Final R esult Performing Organization Address [facility] Co de Phone Number BEN OLIVAS ([place]) 1 [facility] Department [place] [address] * Uric acid (11/06/2024 9:10 AM RF TECHNICIAN) Uric acid 3.5 3.0 - 8.0 mg/dL Blood 11/06/2024 9:10 AM RF TECHNICIAN 11/06/2024 9:37 AM RF TECHNICIAN Narrative [facility] ([place]) - 11/06/2024 10:06 AM RF TECHNICIAN To be drawn 6-8 hours after venetoclax dose on day 1. us Amilcar Sarabia MD LAB BLOOD ORDERABLES Final R esult BEN AVERY) [address] [place] [address] * Phosphorus (11/06/2024 9:10 AM RF TECHNICIAN) Pathologist [facility] Phosphorus, pl 3.9 2.3 - 4.5 mg/dL Blood 11/06/2024 9:10 AM RF TECHNICIAN 11/06/2024 9:37 AM RF TECHNICIAN Narrative BEN OneillJANICE) - 11/06/2024 10:06 AM RF TECHNICIAN To be drawn 6-8 hours after venetoclax dose on day 1. Amilcar Sarabia MD LAB BLOOD ORDERABLES Final R esult Performing Organization Address [facility] Co de Phone Number [place]) [address] [place] [address] * Lactate dehydrogenase (LD) (11/06/2024 9:10 AM RF TECHNICIAN) [facility] Lactate dehydrogenase (LDH) 186 100 - 250 Units/L Blood 11/06/2024 9:10 AM RF TECHNICIAN 11/06/2024 9:37 AM RF TECHNICIAN Narrative BEN OneillJANICE) - 11/06/2024 10:08 AM RF TECHNICIAN To be drawn prior to patient taking venetoclax. Amilcar Sarabia MD LAB BLOOD ORDERABLES Final R esult Performing Organization Address [facility] Co de Phone Number [place]) 1 [facility] [place] [address] * (ABNORMAL) Beta 2 microglobulin, serum (11/06/2024 9:10 AM RF TECHNICIAN) Pathologist [facility] Beta 2 Microglobulin, Serum 5.61(H) 1.21 - 2.70 mcg/mL Block ref Lab Comment: Test Performed by: [facility] [address] [place] [address] Senior Technical Analyst: Sammy Jimenez Ph.D.; CLIA# [id number] Blood 11/06/2024 9:10 AM RF TECHNICIAN 11/06/2024 9:37 AM RF TECHNICIAN Amilcar Sarabia MD LAB BLOOD ORDERABLES Final R esult [facility] ([place]) 1 [facility] Department [place] [address] [place] ref Lab * (ABNORMAL) Comprehensive metabolic panel (11/06/2024 9:10 AM RF TECHNICIAN) Sodium 143 135 - 145 mmol/L Potassium, pl 4.3 3.3 - 4.9 mmol/L [facility] ([place]) Chloride 107 97 - 110 mmol/L [facility] ([place]) CO2 27 22 - 32 mmol/L [facility] ([place]) Anion gap 10 2 - 15 mmol/L [facility] ([place]) BUN 26(H) 6 - 25 mg/dL [facility] ([place]) Creatinine 1.69(H) 0.80 - 1.30 mg/dL [facility] ([place]) Glucose 120 70 - 199 mg/dL [facility] ([place]) [...] [facility] ([place]) Blood 11/06/2024 9:10 AM RF TECHNICIAN 11/06/2024 9:37 AM RF TECHNICIAN Narrative [facility] ([place]) - 11/06/2024 10:06 AM RF TECHNICIAN To be drawn prior to patient taking venetoclax. us Amilcar Sarabia MD LAB BLOOD ORDERABLES Final R esult Performing Organization Address City/[facility]/ZIP Co de Phone Number BEN OLIVAS ([place]) 1 [facility] Department [place] [address] * (ABNORMAL) eGFR (11/05/2024 2:43 PM RF TECHNICIAN) eGFR 37(L) >=60 mL/min/1. 73 m2 Comment: [...] was last reviewed 2021. Testing performed by: [facility], [address] [place] [address], [place]., [address] Blood 11/05/2024 2:43 PM RF TECHNICIAN 11/05/2024 7:16 PM RF TECHNICIAN us Jolie Iraheta NP LAB BLOOD MADIE ARTI Final Result [facility] ([place]) 1 [facility] Department [place] [address] * Uric acid (11/05/2024 2:43 PM RF TECHNICIAN) Uric acid 3.6 3.0 - 8.0 mg/dL Comment:Testing performed by : [facility], [address] [place] [address]., [address] Blood 11/05/2024 2:43 PM RF TECHNICIAN 11/05/2024 7:05 PM RF TECHNICIAN Narrative [facility] OLIVAS ([place]) - 11/05/2024 7:38 PM RF TECHNICIAN 6-8 hours post venetoclax dose. [facility] LAB BLOOD ORDE RABLES Final Result Performing Organization Address City/[facility]/ZIP Co de Phone Number BEN OLIVAS ([place]) [address] [place] [address] * Phosphorus (11/05/2024 2:43 PM RF TECHNICIAN) Pathologist [facility] Phosphorus, pl 4.0 2.3 - 4.5 mg/dL Comment:Testing performed by : [facility], [address] [place] [address]., [address] Blood 11/05/2024 2:43 PM RF TECHNICIAN 11/05/2024 7:05 PM RF TECHNICIAN Narrative [facility] ([place]) - 11/05/2024 7:38 PM RF TECHNICIAN 6-8 hours post venetoclax dose. [facility] LAB BLOOD ORDE RABLES Final Result [facility]EN OLVIAS ([place]) [address] [place], [place] [id number] * (ABNORMAL) Basic metabolic panel (11/05/2024 2:43 PM RF TECHNICIAN) Pathologist [facility] Sodium 142 135 - 145 mmol/L Comment:Testing performed by : [facility], [address] [place] [address]., [address] Potassium, pl 4.2 3.3 - 4.9 mmol/L [facility] ([place]) Comment:Testing performed by : [facility], [address] [place] [address]., [address] Chloride 106 97 - 110 mmol/L [facility] ([place]) Comment:Testing performed by : [facility], [address] [place] [address]., [address] CO2 26 22 - 32 mmol/L [facility] ([place]) Comment:Testing performed by : [address], [address] Anion gap 10 2 - 15 mmol/L [facility] ([place]) Comment:Testing performed by : [address], [address] BUN 30(H) 6 - 25 mg/dL [facility] ([place]) Comment:Testing performed by : [address], [address] Creatinine 1.86(H) 0.80 - 1.30 mg/dL [facility] ([place]) Comment:Testing performed by : [facility], [address] [place] [address], [address] Glucose 111 70 - 199 mg/dL [facility]ER [facility] (JANICE) [...] was last revised 2022. Testing performed by: [address] [address] Calcium 9.2 8.5 - 10.3 mg/dL [facility] (JANICE) Comment:Testing performed by : [address] [address] Blood 11/05/2024 2:43 PM RF TECHNICIAN 11/05/2024 7:05 PM RF TECHNICIAN Narrative [facility] (JANICE) - 11/05/2024 7:38 PM RF TECHNICIAN 6-8 hours post venetoclax dose. us Jolie Iraheta NP LAB BLOOD ORDE RABLES Final Result [facility] (JANICE) 1 [facility] Department [place] [address] * (ABNORMAL) eGFR (11/05/2024 8:24 AM RF TECHNICIAN) eGFR 39(L) >=60 mL/min/1. 73 m2 Comment: [...] last reviewed 2021. Blood 11/05/2024 8:24 AM RF TECHNICIAN 11/05/2024 8:28 AM RF TECHNICIAN us Amilcar Sarabia MD LAB BLOOD ORDERABLES Final R esult [facility] Department [place] [address] * (ABNORMAL) Differential, auto (11/05/2024 8:24 AM RF TECHNICIAN) Neutrophil abs 1.4(L) 1.5 - 6.5 K/cumm Comment:Testing performed by : [facility], [address] [place] [phone] Lymphocyte abs 0.6(L) 0.8 - 3.3 K/cumm [facility] Comment:Testing performed by : [facility] [place][Note 2] [facility] Lab, [address] [place] [phone] Monocyte abs 0.2 0.2 - 0.8 K/cumm [facility] Comment:Testing performed by : [facility] [place][Note 2] [facility]e Lab, [address] [place] [phone] Eosinophil abs 0.1 0.0 - 0.5 K/cumm [facility] Comment:Testing performed by : [facility] [place][Note 2] [facility]e Lab, [address] [place] [phone] Basophil abs 0.0 0.0 - 0.1 K/cumm [facility] Comment:Testing performed by : [facility], [address] [place] [phone] Neutrophil pct 60.1 % [facility] Comment: Interpretive Data Percent cell count reference ranges are not reported, since discordance with absolute values may lead to misinterpretation of CBC data. Current Interpretive Data was last revised on 2018. Testing performed by: [facility], [address] [place] [phone] Lymphocyte pct 26.6 % [facility] Comment: Interpretive Data Percent cell count reference ranges are not reported, since discordance with absolute values may lead to misinterpretation of CBC data. Current Interpretive Data was last revised on 2018. Testing performed by: [facility] [place][Note 2] [facility]e Lab, [address] [place] [phone] Monocyte pct 7.8 % [facility] Comment: Interpretive Data Percent cell count reference ranges are not reported, since discordance with absolute values may lead to misinterpretation of CBC data. Current Interpretive Data was last revised on 2018. Testing performed by: [facility] [place][Note 2] [facility]e Lab, [address] [place] [phone] Eosinophil pct 4.5 % [facility] Comment: Interpretive Data Percent cell count reference ranges are not reported, since discordance with absolute values may lead to misinterpretation of CBC data. Current Interpretive Data was last revised on 2018. Testing performed by: [facility] [place][Note 2] Heme Lab, [address] [place] [address] Basophil pct 1.0 % [facility] Comment: Interpretive Data Percent cell count reference ranges are not reported, since discordance with absolute values may lead to misinterpretation of CBC data. Current Interpretive Data was last revised on 2018. Testing performed by: [facility] [place][Note 2] Heme Lab, [address] [place] [address] Blood 11/05/2024 8:24 AM RF TECHNICIAN 11/05/2024 8:27 AM RF TECHNICIAN Amilcar Sarabia MD LAB BLOOD ORDERABLES Final R esult [facility] Department [place] [address] * (ABNORMAL) CBC with auto differential (11/05/2024 8:24 AM RF TECHNICIAN) WBC 2.3(L) 3.8 - 9.9 K/cumm Comment:Testing performed by : [facility] [place][Note 2] Heme Lab, [address] [place] [address] Hgb 9.0(L) 13.0 - 17.5 g/dL [facility] Comment:Testing performed by : [facility] [place][Note 2] Heme Lab, [address] [place] [address] Hct 28.7(L) 38.9 - 50.3 % [facility] Comment:Testing performed by : [facility] [place][Note 2] Heme Lab, [address] [place] [address] Plt 77(L) 150 - 400 K/cumm [facility] Comment:Testing performed by : [facility] [place][Note 2] Heme Lab, [address] [place] [address] MPV 7.6 6.8 - 10.4 fL [facility] Comment:Testing performed by : [facility] [place][Note 2] Heme Lab, [address] [place] [address] RBC 3.61(L) 4.30 - 5.80 M/cumm [facility] Comment:Testing performed by : [facility] [place][Note 2] Heme Lab, [address] [place] [address] MCV 79.4(L) 81.3 - 96.4 fL [facility] Comment:Testing performed by : [facility] [place][Note 2] Heme Lab, [address] [place] [address] MCH 24.9(L) 27.1 - 33.3 pg [facility] Comment:Testing performed by : [facility] [place][Note 2] Heme Lab, [address] [place] [address] MCHC 31.3(L) 32.3 - 35.7 g/dL [facility] Comment:Testing performed by : [facility] [place][Note 2] Heme Lab, [address] [place] [address] RDW CV 16.3(H) 11.1 - 14.9 % [facility] Comment:Testing performed by : [facility] [place][Note 2] Heme Lab, [address] [place] [address] NRBC abs 0.00 0.00 - 0.01 K/cumm [facility] Comment:Testing performed by : [facility] [place][Note 2] Heme Lab, [address] [place] [address] Blood 11/05/2024 8:24 AM RF TECHNICIAN 11/05/2024 8:27 AM RF TECHNICIAN Narrative [facility] - 11/05/2024 8:35 AM RF TECHNICIAN To be drawn prior to patient taking venetoclax. us Amilcar Sarabia MD LAB BLOOD ORDERABLES Final R esult [facility] Department of Laboratories [place], [place] [id number] * Uric acid (11/05/2024 8:24 AM RF TECHNICIAN) Uric acid 3.3 3.0 - 8.0 mg/dL Blood 11/05/2024 8:24 AM RF TECHNICIAN 11/05/2024 8:28 AM RF TECHNICIAN Narrative [facility] 11/05/2024 9:06 AM RF TECHNICIAN To be drawn prior to patient taking venetoclax. Amilcar Sarabia MD LAB BLOOD ORDERABLES Final R esult Performing Organization Address [facility] Co de Phone Number [facility] Department [place] [address] * Phosphorus (11/05/2024 8:24 AM RF TECHNICIAN) Pathologist [facility] Phosphorus, pl 3.9 2.3 - 4.5 mg/dL Blood 11/05/2024 8:24 AM RF TECHNICIAN 11/05/2024 8:28 AM RF TECHNICIAN Narrative [facility] 11/05/2024 9:06 AM RF TECHNICIAN To be drawn prior to patient taking venetoclax. Amilcar Sarabia MD LAB BLOOD ORDERABLES Final R esult Performing Organization Address [facility] Co de Phone Number [facility] Department [place] [address] * Lactate dehydrogenase (LD) (11/05/2024 8:24 AM RF TECHNICIAN) [facility] Lactate dehydrogenase (LDH) 186 100 - 250 Units/L Blood 11/05/2024 8:24 AM RF TECHNICIAN 11/05/2024 8:28 AM RF TECHNICIAN Narrative [facility] 11/05/2024 9:06 AM RF TECHNICIAN To be drawn prior to patient taking venetoclax. Amilcar Sarabia MD LAB BLOOD ORDERABLES Final R esult Performing Organization Address [facility] Co de Phone Number [facility] Department [place] [address] * (ABNORMAL) Comprehensive metabolic panel (11/05/2024 8:24 AM RF TECHNICIAN) [facility] Sodium 141 135 - 145 mmol/L Potassium, pl 4.1 3.3 - 4.9 mmol/L [facility] Chloride 108 97 - 110 mmol/L [facility] CO2 28 22 - 32 mmol/L [facility] Anion gap 5 2 - 15 mmol/L [facility] BUN 29(H) 6 - 25 mg/dL [facility] Creatinine 1.78(H) 0.80 - 1.30 mg/dL [facility] Glucose 109 70 - 199 mg/dL [facility] Comment: Interpretive Data Fasting glucose >/= 126 [...] 2022. Calcium 9.2 8.5 - 10.3 mg/dL [facility] Bilirubin, total 0.5 0.1 - 1.2 mg/dL [facility] Protein, pl 6.5 6.5 - 8.5 g/dL [facility] Albumin 3.9 3.5 - 5.0 g/dL [facility] Alk phos 92 40 - 130 Units/L [facility] ALT 22 7 - 55 Units/L [facility] AST 30 10 - 50 Units/L [facility] Blood 11/05/2024 8:24 AM RF TECHNICIAN 11/05/2024 8:28 AM RF TECHNICIAN Narrative [facility] - 11/05/2024 9:06 AM RF TECHNICIAN To be drawn prior to patient taking venetoclax. us Amilcar Sarabia MD LAB BLOOD ORDERABLES Final R esult [facility] Department [place] [address] * CT chest abdomen pelvis with contrast (11/05/2024 7:50 AM RF TECHNICIAN) Anatomical Region Laterality Modality Body N/A Computed Tomogra phy 11/05/2024 9:42 AM RF TECHNICIAN Impressions 11/05/2024 12:18 PM RF TECHNICIAN 1. Interval slight decrease in size of [...] Ronel Matute M.D. Narrative 11/05/2024 12:18 PM RF TECHNICIAN EXAMINATION: Computed tomography of the chest, abdomen [...] it. Electronically signed by: Ronel Matute M.D. us Amilcar Sarabia MD IMG CT PROCEDURES Final Resu lt * (ABNORMAL) Differential, auto (10/29/2024 8:07 AM RF TECHNICIAN) Neutrophil abs 2.7 1.5 - 6.5 K/cumm Comment:Testing performed by : [facility] [place][Note 2] [facility] Lab, [address] [place], [place] [id number] Lymphocyte abs 0.5(L) 0.8 - 3.3 K/cumm [facility] Comment:Testing performed by : [facility], [address] [place], [place] [id number] Monocyte abs 0.2 0.2 - 0.8 K/cumm [facility] Comment:Testing performed by : [facility] [place][Note 2] [facility] Lab, [address] [place], [place] [id number] Eosinophil abs 0.1 0.0 - 0.5 K/cumm [facility] Comment:Testing performed by : [facility] [place][Note 2] [facility] Lab, [address] [place] [address] Basophil abs 0.0 0.0 - 0.1 K/cumm [facility] Comment:Testing performed by : [facility], [address] [place] [address] Neutrophil pct 76.3 % [facility] Comment: Interpretive Data Percent cell count reference ranges are not reported, since discordance with absolute values may lead to misinterpretation of CBC data. Current Interpretive Data was last revised on 2018. Testing performed by: [facility], [address] [place] [address] Lymphocyte pct 15.2 % [facility] Comment: Interpretive Data Percent cell count reference ranges are not reported, since discordance with absolute values may lead to misinterpretation of CBC data. Current Interpretive Data was last revised on 2018. Testing performed by: [facility] [place][Note 2] [facility] Lab, [address] [place] [phone] Monocyte pct 5.6 % [facility] Comment: Interpretive Data Percent cell count reference ranges are not reported, since discordance with absolute values may lead to misinterpretation of CBC data. Current Interpretive Data was last revised on 2018. Testing performed by: [facility] [place][Note 2] [facility]e Lab, [address] [place] [phone] Eosinophil pct 1.9 % [facility] Comment: Interpretive Data Percent cell count reference ranges are not reported, since discordance with absolute values may lead to misinterpretation of CBC data. Current Interpretive Data was last revised on 2018. Testing performed by: [facility] [place][Note 2] [facility] Lab, [address] [place] [phone] Basophil pct 1.0 % [facility] Comment: Interpretive Data Percent cell count reference ranges are not reported, since discordance with absolute values may lead to misinterpretation of CBC data. Current Interpretive Data was last revised on 2018. Testing performed by: [facility] [place][Note 2] [facility] Lab, [address] [place] [phone] Blood 10/29/2024 8:07 AM RF TECHNICIAN 10/29/2024 8:10 AM RF TECHNICIAN Amilcar Sarabia MD LAB BLOOD ORDERABLES Final R esult [facility] Department [place] [address] * (ABNORMAL) CBC with auto differential (10/29/2024 8:07 AM RF TECHNICIAN) WBC 3.5(L) 3.8 - 9.9 K/cumm Comment:Testing performed by : [facility] [place][Note 2] [facility]e Lab, [address] [place] [phone] Hgb 8.7(L) 13.0 - 17.5 g/dL [facility] Comment:Testing performed by : [facility] [place][Note 2] [facility] Lab, [address] [place] [phone] Hct 27.9(L) 38.9 - 50.3 % [facility] Comment:Testing performed by : [facility] [place][Note 2] [facility]e Lab, [address] [place], [place] [phone] Plt 83(L) 150 - 400 K/cumm [facility] Comment:Testing performed by : [facility] [place][Note 2] [facility] Lab, [address] [place], [place] [phone] MPV 7.3 6.8 - 10.4 fL [facility] Comment:Testing performed by : [facility] [place][Note 2] [facility] Lab, [address] [place], [place] [phone] RBC 3.49(L) 4.30 - 5.80 M/cumm [facility] Comment:Testing performed by : [facility] [place][Note 2] [facility] Lab, [address] [place], [place] [phone] MCV 80.1(L) 81.3 - 96.4 fL [facility] Comment:Testing performed by : [facility] [place][Note 2] Heme Lab, [address] [place], [place] [phone] MCH 25.1(L) 27.1 - 33.3 pg [facility] Comment:Testing performed by : [facility] [place][Note 2] [facility] Lab, [address] [place], [place] [phone] MCHC 31.3(L) 32.3 - 35.7 g/dL [facility] Comment:Testing performed by : [facility] [place][Note 2] [facility] Lab, [address] [place], [place] [phone] RDW CV 16.3(H) 11.1 - 14.9 % [facility] Comment:Testing performed by : [facility] [place][Note 2] Heme Lab, [address] [place], [place] [phone] NRBC abs 0.00 0.00 - 0.01 K/cumm [facility] Comment:Testing performed by : [facility] [place][Note 2] [facility]e Lab, [address] [place], [place] [phone] Blood 10/29/2024 8:07 AM RF TECHNICIAN 10/29/2024 8:10 AM RF TECHNICIAN Amilcar Sarabia MD LAB BLOOD ORDERABLES Final R esult [facility] Department [place] [address] * (ABNORMAL) eGFR (10/22/2024 8:20 AM RF TECHNICIAN) [facility] eGFR 35(L) >=60 mL/min/1. 73 m2 Comment: [...] last reviewed 2021. Blood 10/22/2024 8:20 AM RF TECHNICIAN 10/22/2024 8:30 AM RF TECHNICIAN Cas Taylor MD LAB BLOOD ORDERABLES Fin al Result [facility] Department [place] [address] * Differential, auto (10/22/2024 8:20 AM RF TECHNICIAN) [facility] Neutrophil abs 2.2 1.5 - 6.5 K/cumm Comment:Testing performed by : [facility], [address] [place] [phone] Lymphocyte abs 1.0 0.8 - 3.3 K/cumm [facility] Comment:Testing performed by : [facility] Lab, [address] [place] [phone] Monocyte abs 0.2 0.2 - 0.8 K/cumm [facility] Comment:Testing performed by : [facility] [place][Note 2] Heme Lab, [address] [place] [phone] Eosinophil abs 0.1 0.0 - 0.5 K/cumm [facility] Comment:Testing performed by : [facility] [place][Note 2] Heme Lab, [address] [place] [phone] Basophil abs 0.0 0.0 - 0.1 K/cumm [facility] Comment:Testing performed by : [facility] [place][Note 2] Heme Lab, [address] [place] [phone] Neutrophil pct 62.3 % [facility] Comment: Interpretive Data Percent cell count reference ranges are not reported, since discordance with absolute values may lead to misinterpretation of CBC data. Current Interpretive Data was last revised on 2018. Testing performed by: [facility], [address] [place] [phone] Lymphocyte pct 29.1 % [facility] Comment: Interpretive Data Percent cell count reference ranges are not reported, since discordance with absolute values may lead to misinterpretation of CBC data. Current Interpretive Data was last revised on 2018. Testing performed by: [facility], [address] [place] [phone] Monocyte pct 5.7 % [facility] Comment: Interpretive Data Percent cell count reference ranges are not reported, since discordance with absolute values may lead to misinterpretation of CBC data. Current Interpretive Data was last revised on 2018. Testing performed by: [facility] [place][Note 2] Heme Lab, [address] [place] [phone] Eosinophil pct 2.2 % [facility] Comment: Interpretive Data Percent cell count reference ranges are not reported, since discordance with absolute values may lead to misinterpretation of CBC data. Current Interpretive Data was last revised on 2018. Testing performed by: [facility] [place][Note 2] [facility] Lab, [address] [place] [phone] Basophil pct 0.7 % [facility] Comment: Interpretive Data Percent cell count reference ranges are not reported, since discordance with absolute values may lead to misinterpretation of CBC data. Current Interpretive Data was last revised on 2018. Testing performed by: [facility] [place][Note 2] [facility] Lab, [address] [place] [phone] Blood 10/22/2024 8:20 AM RF TECHNICIAN 10/22/2024 8:30 AM RF TECHNICIAN Amilcar Sarabia MD LAB BLOOD ORDERABLES Final R esult [facility] Department [place] [address] * (ABNORMAL) CBC with auto differential (10/22/2024 8:20 AM RF TECHNICIAN) WBC 3.5(L) 3.8 - 9.9 K/cumm Comment:Testing performed by : [facility] [place][Note 2] Heme Lab, [address] [place] [address] Hgb 8.6(L) 13.0 - 17.5 g/dL [facility] Comment:Testing performed by : [facility] [place][Note 2] Heme Lab, [address] [place] [address] Hct 27.6(L) 38.9 - 50.3 % [facility] Comment:Testing performed by : [facility] [place][Note 2] Heme Lab, [address] [place] [address] Plt 89(L) 150 - 400 K/cumm [facility] Comment:Testing performed by : [facility] [place][Note 2] Heme Lab, [address] [place] [address] MPV 7.8 6.8 - 10.4 fL [facility] Comment:Testing performed by : [facility] [place][Note 2] Heme Lab, [address] [place] [address] RBC 3.34(L) 4.30 - 5.80 M/cumm [facility] Comment:Testing performed by : [facility] [place][Note 2] Hem[facility] Lab, [address] [place] [address] MCV 82.7 81.3 - 96.4 fL [facility] Comment:Testing performed by : [facility] [place][Note 2] Heme Lab, [address] [place] [phone] MCH 25.8(L) 27.1 - 33.3 pg [facility] Comment:Testing performed by : [facility] [place][Note 2] Heme Lab, [address] [place], [place] [phone] MCHC 31.1(L) 32.3 - 35.7 g/dL [facility] Comment:Testing performed by : [facility] [place][Note 2] Heme Lab, [address] [place], [place] [phone] RDW CV 17.2(H) 11.1 - 14.9 % [facility] Comment:Testing performed by : [facility] [place][Note 2] Heme Lab, [address] [place] [phone] NRBC abs 0.00 0.00 - 0.01 K/cumm [facility] Comment:Testing performed by : [facility] [place][Note 2] Heme Lab, [address] [place] [phone] Blood 10/22/2024 8:20 AM RF TECHNICIAN 10/22/2024 8:30 AM RF TECHNICIAN Amilcar Sarabia MD LAB BLOOD ORDERABLES Final R esult [facility] [place] [address] * (ABNORMAL) Comprehensive metabolic panel (10/22/2024 8:20 AM RF TECHNICIAN) Sodium 146(H) 135 - 145 mmol/L Potassium, pl 4.3 3.3 - 4.9 mmol/L [facility] Chloride 113(H) 97 - 110 mmol/L [facility] CO2 28 22 - 32 mmol/L [facility] Anion gap 5 2 - 15 mmol/L [facility] BUN 31(H) 6 - 25 mg/dL [facility] Creatinine 1.94(H) 0.80 - 1.30 mg/dL [facility] Glucose 114 70 - 199 mg/dL [facility] Comment: Interpretive Data Fasting glucose >/= 126 [...] 2022. Calcium 9.1 8.5 - 10.3 mg/dL [facility] [place] Bilirubin, total 0.3 0.1 - 1.2 mg/dL [facility] Protein, pl 6.2(L) 6.5 - 8.5 g/dL [facility] Albumin 3.7 3.5 - 5.0 g/dL [facility] [place] Alk phos 116 40 - 130 Units/L [facility] ALT 75(H) 7 - 55 Units/L [facility] AST 86(H) 10 - 50 Units/L [facility] Blood 10/22/2024 8:20 AM RF TECHNICIAN 10/22/2024 8:30 AM RF TECHNICIAN Cas Taylor MD LAB BLOOD ORDERABLES Fin al Result [facility] [place] [address] * (ABNORMAL) eGFR (10/16/2024 4:56 PM RF TECHNICIAN) eGFR 29(L) >=60 mL/min/1. 73 m2 Comment: [...] last reviewed 2021. Blood 10/16/2024 4:56 PM RF TECHNICIAN 10/16/2024 5:44 PM RF TECHNICIAN Amilcar Sarabia MD LAB BLOOD ORDERABLES Final R esult Performing Organization Address [facility] Co de Phone Number [facility] [place] [address] * Uric acid (10/16/2024 4:56 PM RF TECHNICIAN) Pathologist [facility] Uric acid 5.9 3.0 - 8.0 mg/dL Blood 10/16/2024 4:56 PM RF TECHNICIAN 10/16/2024 5:44 PM RF TECHNICIAN Narrative [facility] - 10/16/2024 6:36 PM RF TECHNICIAN To be drawn at the end of obina infusion Amilcar Sarabia MD LAB BLOOD ORDERABLES Final R esult Performing Organization Address [facility] Co de Phone Number [facility] Department [place] [address] * (ABNORMAL) Basic metabolic panel (10/16/2024 4:56 PM RF TECHNICIAN) Sodium 143 135 - 145 mmol/L Potassium, pl 4.7 3.3 - 4.9 mmol/L [facility] Chloride 107 97 - 110 mmol/L [facility] CO2 24 22 - 32 mmol/L [facility] Anion gap 12 2 - 15 mmol/L [facility] BUN 41(H) 6 - 25 mg/dL [facility] Creatinine 2.30(H) 0.80 - 1.30 mg/dL [facility] Glucose 179 70 - 199 mg/dL [facility] Comment: Interpretive Data Fasting glucose >/= 126 [...] 2022. Calcium 8.9 8.5 - 10.3 mg/dL [facility] Blood 10/16/2024 4:56 PM RF TECHNICIAN 10/16/2024 5:44 PM RF TECHNICIAN Narrative [facility] - 10/16/2024 6:36 PM RF TECHNICIAN To be drawn at the end of obina infusion us Amilcar Sarabia MD LAB BLOOD ORDERABLES Final R esult [facility] [place] [address] * (ABNORMAL) eGFR (10/16/2024 9:07 AM RF TECHNICIAN) eGFR 27(L) >=60 mL/min/1. 73 m2 Comment: [...] last reviewed 2021. Blood 10/16/2024 9:07 AM RF TECHNICIAN 10/16/2024 9:13 AM RF TECHNICIAN Amilcar Sarabia MD LAB BLOOD ORDERABLES Final R esult [facility] Department [place] [address] * (ABNORMAL) CBC without differential (10/16/2024 9:07 AM RF TECHNICIAN) WBC 9.5 3.8 - 9.9 K/cumm Comment:Testing performed by : [facility] [place][Note 2] Heme Lab, [address] [place] [address] Hgb 8.9(L) 13.0 - 17.5 g/dL [facility] Comment:Testing performed by : [facility] [place][Note 2] Heme Lab, [address] [place] [address] Hct 28.4(L) 38.9 - 50.3 % [facility] Comment:Testing performed by : [facility] [place][Note 2] Heme Lab, [address] [place] [address] Plt 87(L) 150 - 400 K/cumm [facility] Comment:Testing performed by : [facility] [place][Note 2] Heme Lab, [address] [place] [address] MPV 8.5 6.8 - 10.4 fL [facility] Comment:Testing performed by : [facility] [place][Note 2] Heme Lab, [address] [place] [address] RBC 3.39(L) 4.30 - 5.80 M/cumm [facility] Comment:Testing performed by : [facility] [place][Note 2] Heme Lab, [address] [place] [address] MCV 83.7 81.3 - 96.4 fL [facility] Comment:Testing performed by : [facility] [place][Note 2] Heme Lab, [address] [place] [address] MCH 26.3(L) 27.1 - 33.3 pg [facility] Comment:Testing performed by : [facility] [place][Note 2] Heme Lab, [address] [place] [phone] MCHC 31.4(L) 32.3 - 35.7 g/dL [facility] Comment:Testing performed by : [facility] Heme Lab, [facility] [place] [address] RDW CV 16.9(H) 11.1 - 14.9 % [facility] Comment:Testing performed by : [facility] Heme Lab, [address] [place] [phone] Blood 10/16/2024 9:07 AM RF TECHNICIAN 10/16/2024 9:19 AM RF TECHNICIAN Cas Taylor MD LAB BLOOD ORDERABLES Fin al Result Performing Organization Address City/[facility] Co de Phone Number [facility] [place] [address] * Uric acid (10/16/2024 9:07 AM RF TECHNICIAN) Uric acid 6.1 3.0 - 8.0 mg/dL Blood 10/16/2024 9:07 AM RF TECHNICIAN 10/16/2024 9:13 AM RF TECHNICIAN Amilcar Sarabia MD LAB BLOOD ORDERABLES Final R esult Performing Organization Address [facility] Co de Phone Number [facility] Department [place] [address] * Phosphorus (10/16/2024 9:07 AM RF TECHNICIAN) Phosphorus, pl 4.1 2.3 - 4.5 mg/dL Blood 10/16/2024 9:07 AM RF TECHNICIAN 10/16/2024 9:13 AM RF TECHNICIAN Amilcar Sarabia MD LAB BLOOD ORDERABLES Final R esult Performing Organization Address City/[facility] Co de Phone Number [facility] Department [place] [address] * (ABNORMAL) Lactate dehydrogenase (LD) (10/16/2024 9:07 AM RF TECHNICIAN) Lactate dehydrogenase (LDH) 257(H) 100 - 250 Units/L Blood 10/16/2024 9:07 AM RF TECHNICIAN 10/16/2024 9:13 AM RF TECHNICIAN Amilcar Sarabia MD LAB BLOOD ORDERABLES Final R esult [facility] Department [place] [address] * (ABNORMAL) Basic metabolic panel (10/16/2024 9:07 AM RF TECHNICIAN) Pathologist [facility] Sodium 145 135 - 145 mmol/L Potassium, pl 4.6 3.3 - 4.9 mmol/L [facility] Chloride 108 97 - 110 mmol/L [facility] CO2 27 22 - 32 mmol/L [facility] Anion gap 10 2 - 15 mmol/L [facility] BUN 38(H) 6 - 25 mg/dL [facility] Creatinine 2.38(H) 0.80 - 1.30 mg/dL [facility] Glucose 125 70 - 199 mg/dL [facility] Comment: Interpretive Data Fasting glucose >/= 126 [...] 2022. Calcium 9.2 8.5 - 10.3 mg/dL [facility] Blood 10/16/2024 9:07 AM RF TECHNICIAN 10/16/2024 9:13 AM RF TECHNICIAN Amilcar Sarabia MD LAB BLOOD ORDERABLES Final R esult Performing Organization Address [facility] Co de Phone Number BEN [facility] [place] [address] * Hepatitis C antibody Blood (10/15/2024 9:53 AM RF TECHNICIAN) Hep C Ab Nonreactive Nonreactive Comment:Antibodies to HCV no t detected. Does NOT exclude the possibility of recent exposure to HCV. Current interpretive data was last revised on 22 Blood 10/15/2024 9:53 AM RF TECHNICIAN 10/15/2024 10:33 AM RF TECHNICIAN us Amilcar Sarabia MD LAB MICROBIOLOGY - GENERAL O RDERABLES Final Result Performing Organization Address [facility] Co de Phone Number BEN [facility] [place] [address] * Hepatitis B core antibody, total Blood (10/15/2024 9:53 AM RF TECHNICIAN) Hep B core IgG/IgM Nonreactive Nonreactive Blood 10/15/2024 9:53 AM RF TECHNICIAN 10/15/2024 10:33 AM RF TECHNICIAN us Amilcar Sarabia MD LAB MICROBIOLOGY - GENERAL O RDERABLES Final Result Performing Organization Address [facility] Co de Phone Number BEN [facility] [place] [address] * Hepatitis B surface antibody (immune status) Blood (10/15/2024 9:53 AM RF TECHNICIAN) HBsAb (immune status) Nonreactive Comment:This result is consi stent with a lack of immunity to Hepatitis B Virus when used in the setting of routine screening. Current interpretative data was last revised on 22 Blood 10/15/2024 9:53 AM RF TECHNICIAN 10/15/2024 10:33 AM RF TECHNICIAN Amilcar Sarabia MD LAB MICROBIOLOGY - GENERAL O RDERABLES Final Result [facility] [place] [address] * Hepatitis B Surface Antigen Blood (10/15/2024 9:53 AM RF TECHNICIAN) HepBsAg Nonreactive Nonreactive Blood 10/15/2024 9:53 AM RF TECHNICIAN 10/15/2024 10:33 AM RF TECHNICIAN Amilcar Sarabia MD LAB MICROBIOLOGY - GENERAL O RDERABLES Final Result Performing Organization Address [facility] Co de Phone Number [facility] [place] [address] * (ABNORMAL) eGFR (10/15/2024 7:37 AM RF TECHNICIAN) eGFR 38(L) >=60 mL/min/1. 73 m2 Comment: [...] last reviewed 2021. Blood 10/15/2024 7:37 AM RF TECHNICIAN 10/15/2024 7:43 AM RF TECHNICIAN Amilcar Sarabia MD LAB BLOOD ORDERABLES Final R esult [facility] Department [place] [address] * (ABNORMAL) CBC with auto differential (10/15/2024 7:37 AM RF TECHNICIAN) WBC 37.4(H) 3.8 - 9.9 K/cumm Comment:Testing performed by : [facility] [place][Note 2] Heme Lab, [address] [place] [address] Hgb 9.1(L) 13.0 - 17.5 g/dL [facility]J Comment:Testing performed by : [facility] [place][Note 2] Heme Lab, [address] [place] [address] Hct 28.9(L) 38.9 - 50.3 % [facility]J Comment:Testing performed by : [facility] [place][Note 2] Heme Lab, [address] [place] [address] Plt 105(L) 150 - 400 K/cumm [facility]J Comment:Testing performed by : [facility] [place][Note 2] Heme Lab, [address] [place] [address] MPV 8.3 6.8 - 10.4 fL [facility] Comment:Testing performed by : [facility] [place][Note 2] Heme Lab, [address] [place] [address] RBC 3.42(L) 4.30 - 5.80 M/cumm [facility]J Comment:Testing performed by : [facility] [place][Note 2] Heme Lab, [address] [place] [address] MCV 84.3 81.3 - 96.4 fL [facility] Comment:Testing performed by : [facility] [place][Note 2] Heme Lab, [address] [place] [address] MCH 26.5(L) 27.1 - 33.3 pg [facility]J Comment:Testing performed by : [facility] [place][Note 2] Heme Lab, [address] [place] [address] MCHC 31.5(L) 32.3 - 35.7 g/dL [facility]J Comment:Testing performed by : [facility] [place][Note 2] Heme Lab, [address] [place] [address] RDW CV 17.1(H) 11.1 - 14.9 % [facility] Comment:Testing performed by : [facility] [place][Note 2] Heme Lab, [address] [place] [address] NRBC abs 0.00 0.00 - 0.01 K/cumm [facility] C[facility]AT[facility] Comment:Testing performed by : [facility] [place][Note 2] Heme Lab, [address] [place] [address] Blood 10/15/2024 7:37 AM RF TECHNICIAN 10/15/2024 7:41 AM RF TECHNICIAN Amilcar Sarabia MD LAB BLOOD ORDERABLES Edited Result - Final [facility] Department [place] [address] * (ABNORMAL) Manual Differential (10/15/2024 7:37 AM RF TECHNICIAN) Cells Counted 200 Comment:Testing performed by : [facility] [place][Note 2] Heme Lab, [address] [place] [address] Neutrophil abs 3.7 1.5 - 6.5 K/cumm [facility] C[facility]ATO Comment:Testing performed by : [facility] [place][Note 2] Heme Lab, [address] [place] [address] Lymphocyte abs 33.7(H) 0.8 - 3.3 K/cumm [facility] Comment:Testing performed by : [facility] [place][Note 2] Heme Lab, [address] [place] [address] Monocyte abs 0.4 0.2 - 0.8 K/cumm BEN BJ Comment:Testing performed by : [facility] [place][Note 2] Heme Lab, [address] [place] [address] Eosinophil abs 0.0 0.0 - 0.5 K/cumm [facility] BJ Comment:Testing performed by : [facility] [place][Note 2] Heme Lab, [address] [place] [address] Basophil abs 0.0 0.0 - 0.1 K/cumm [facility]J Comment:Testing performed by : [facility] [place][Note 2] Heme Lab, [address] [place] [phone] Neutrophil pct 10.0 % [facility] Comment: Interpretive Data Percent cell count reference ranges are not reported, since discordance with absolute values may lead to misinterpretation of CBC data. Current Interpretive Data was last revised on 2018. Testing performed by: [facility], [address] [place] [phone] Lymphocyte pct 90.0 % [facility] BJ Comment: Interpretive Data Percent cell count reference ranges are not reported, since discordance with absolute values may lead to misinterpretation of CBC data. Current Interpretive Data was last revised on 2018. Testing performed by: [facility], [address] [place] [phone] Monocyte pct 1.0 % [facility] Comment: Interpretive Data Percent cell count reference ranges are not reported, since discordance with absolute values may lead to misinterpretation of CBC data. Current Interpretive Data was last revised on 2018. Testing performed by: [facility] [place][Note 2] Heme Lab, [address] [place] [phone] Eosinophil pct 0.0 % [facility] Comment: Interpretive Data Percent cell count reference ranges are not reported, since discordance with absolute values may lead to misinterpretation of CBC data. Current Interpretive Data was last revised on 2018. Testing performed by: [facility], [address] [place] [phone] Basophil pct 0.0 % [facility]J Comment: Interpretive Data Percent cell count reference ranges are not reported, since discordance with absolute values may lead to misinterpretation of CBC data. Current Interpretive Data was last revised on 2018. Testing performed by: [facility] Lab, [address] [place] [phone] Microcytes 1+(A) [facility]J Comment:Testing performed by : [facility] Lab, [address] [place] [phone] Elliptocytes 1+(A) [facility] BJ Comment:Testing performed by : [facility] [place][Note 2] Heme Lab, [address] [place] [address] [place] [address] Platelet estimate Decreased (A) [facility] Comment:Testing performed by : [facility] Heme Lab, [facility] [place] [address] Blood 10/15/2024 7:37 AM RF TECHNICIAN 10/15/2024 7:41 AM RF TECHNICIAN Amilcar Sarabia MD LAB BLOOD ORDERABLES Final R esult Performing Organization Address City/[facility] Co de Phone Number [facility] [place] [address] * Uric acid (10/15/2024 7:37 AM RF TECHNICIAN) Uric acid 5.3 3.0 - 8.0 mg/dL Blood 10/15/2024 7:37 AM RF TECHNICIAN 10/15/2024 7:43 AM RF TECHNICIAN Amilcar Sarabia MD LAB BLOOD ORDERABLES Final R esult Performing Organization Address [facility] [place] [address] * Phosphorus (10/15/2024 7:37 AM RF TECHNICIAN) Phosphorus, pl 3.7 2.3 - 4.5 mg/dL Blood 10/15/2024 7:37 AM RF TECHNICIAN 10/15/2024 7:43 AM RF TECHNICIAN Amilcar Sarabia MD LAB BLOOD ORDERABLES Final R esult Performing Organization Address [facility] de Phone Number [facility] [place] [address] * Lactate dehydrogenase (LD) (10/15/2024 7:37 AM RF TECHNICIAN) Lactate dehydrogenase (LDH) 170 100 - 250 Units/L Blood 10/15/2024 7:37 AM RF TECHNICIAN 10/15/2024 7:43 AM RF TECHNICIAN Amilcar Sarabai MD LAB BLOOD ORDERABLES Final R esult [facility] Department [place] [address] * (ABNORMAL) Comprehensive metabolic panel (10/15/2024 7:37 AM RF TECHNICIAN) Sodium 146(H) 135 - 145 mmol/L Potassium, pl 4.1 3.3 - 4.9 mmol/L [facility] Chloride 111(H) 97 - 110 mmol/L [facility] CO2 28 22 - 32 mmol/L [facility] Anion gap 7 2 - 15 mmol/L [facility] BUN 28(H) 6 - 25 mg/dL [facility] Creatinine 1.82(H) 0.80 - 1.30 mg/dL [facility] Glucose 121 70 - 199 mg/dL [facility] Comment: Interpretive Data Fasting glucose >/= 126 [...] Calcium 9.4 8.5 - 10.3 mg/dL [facility] Bilirubin, total 0.3 0.1 - 1.2 mg/dL [facility] Protein, pl 6.7 6.5 - 8.5 g/dL [facility] Albumin 4.0 3.5 - 5.0 g/dL [facility] Alk phos 93 40 - 130 Units/L [facility] ALT 20 7 - 55 Units/L [facility] AST 31 10 - 50 Units/L [facility] Blood 10/15/2024 7:37 AM RF TECHNICIAN 10/15/2024 7:43 AM RF TECHNICIAN Amilcar Sarabia MD LAB BLOOD ORDERABLES Final R esult [facility] [place] [address] from Last 3 Months Insurance MEDICARE [facility] [place] [place] [address] [employer] [place] Advance Directives For more information, please contact: [phone] * Full Code (Latest Code Status on File) Date Activated Date Inactivated Comments 03/14/2024 2:50 PM 03/22/2024 5:48 PM * Full Code Date Activated Date Inactivated Comments 03/11/2024 10:34 PM 03/14/2024 2:49 PM Care Teams Rubber Compounder Relationship Specialty Start Date End Date Kyle Hendricks MD PCP - General 04/06/17 Amilcar Sarabia MD Medical Oncologist/Driller Multiple Spindle Medical Oncology 05/24/22 Cas Taylor MD [id number] [place] [address] Consulting Physician Cardiothoracic Surgery 03/22/24
--- OUTSIDE RECORDS SUMMARY | 2025-01-09 02:25 | XMS_ITS | Clinical Summary ---
Author Organization [facility] Address [address] [place] [address] Phone Care Team Providers Care Artificial Stone Applicator Name Role Phone Kyle Hendricks MD Primary Care Provider [phone] Williams Raymond MD Unavailable Allergies Active Allergy [...] Documents on File Type Date Recorded Patient Ribbon Tier Expl anation Other Advance Directive 04/25/2022 3:30 PM UROLOGY REFERRAL [facility] Care Teams Artificial Stone Applicator Relationship Specialty Start Date End Date Kyle Hendricks MD [address] [place] [address] PCP - General Internal Medicine 04/25/22 Williams Raymond MD [address] [address] Consulting Physician Urology 06/01/22
--- OUTSIDE RECORDS SUMMARY | 2025-01-09 02:25 | XMS_ITS | Encounter Summary ---
Author Organization [facility] Address [address] [place] [address] Phone Care Team Providers Care Telephony Engineer Name Role Phone Kyle Hendricks MD Primary Care Provider [phone] Amilcar Sarabia MD Unavailable [phone] Cas Taylor MD Unavailable [phone] Encounter Details Date Type Department Care Team (Latest Contact Info) Description 02/14/2020 Orders Only [facility] Scanning, Provider Social History Tobacco Use Types Packs/Day Years Used Date Smoking Tobacco: Former Cigarettes Q uit: 1976 Smokeless Tobacco: Former Sex and Gender Information Value Date Recorded Sex Assigned at Not on file 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 Gender Identity Not on file Sexual Orientation Not on file documented as of this encounter Plan of Treatment Not on file documented as of this encounter Procedures Procedure Name Priority Date/Time Associated Diagnosis Comments SCAN - LABS 02/14/2020 documented in this encounter Results * SCAN - LABS (02/14/2020) us Provider Scanning Final Result documented in this encounter Visit Diagnoses Not on filedocumented in this encounter Care Teams Telephony Engineer Relationship Specialty Start Date End Date Kyle Hendricks MD PCP - General 04/06/17 Amilcar Sarabia MD Medical Oncologist/Social Worker Assistant Medical Oncology 05/24/22 Cas Taylor MD [id number] [place] [address] Consulting Physician Cardiothoracic Surgery 03/22/24 documented as of this encounter
[2025-01-09 02:46] VITALS: BP 142/82; PULSE 69; RESP 17; O2SAT 98
[2025-01-09 02:47] LABS: Hematocrit 39.8 % (42.0-52.0); Hemoglobin 12.4 g/dL (14.0-18.0); Immature Platelet Fraction Pct 2.4 % (0.9-11.2); Mean Corpuscular HGB Conc 31.2 g/dl (32-36); Mean Corpuscular Hemoglobin 28.1 pg (26-34); Mean Corpuscular Volume 90.2 fl (80-100); Mean Platelet Volume 10.5 fl (7.4-10.4); Red Blood Count 4.41 M/mm3 (4.6-6.20); Red Cell Distribution Width 20.9 % (11.5-14.5); White Blood Count 5.5 K/mm3 (4.5-10.0)
[2025-01-09 02:49] LABS: Platelet Count Result 71 k/mm3 (150-375)
[2025-01-09 02:53] LABS: Add Urine Microscopic? YES; Appearance Urine Clear (Clear); Bacteria Urine None Seen /hpf; Bilirubin Urine Negative (Negative); Blood Urine 3+ (Negative); Color Urine Yellow (Yellow); Glucose Urine UA Negative (Negative); Ketones Urine Negative (Negative); Leukocyte Esterase Ur Trace LEU/UL (Negative); Nitrate Urine Negative (Negative); Non Pathogenic Casts 0-2; Protein Urine 3+ mg/dL (Negative); RBC Urine 51-100 /hpf (0-2); Specific Grav Ur 1.016 (1.001-1.035); Squamous Epithelial Cell Urine None Seen /hpf (Few); pH Urine 6.5 (5.0-9.0)
--- OUTSIDE RECORDS SUMMARY | 2025-01-09 02:59 | XMS_ITS | Clinical Summary ---
Author Organization [facility] Address [address] [place] [address] Care Team Providers Care Klystrom Tube Tester Name Role Phone Denis Blunt MD Unavailable [phone] Kyle Hendricks MD Primary Care Provider [phone] Allergies Active Allergy Reactions Criticality Noted Date [...] oz pur e alcohol) rare beer [facility] Utilities Answer Date Recorded In the past 12 months has [facility], [employer], oil, or water [employer] threatened to shut off services in your [...] any time in the past 12 [facility], were you homeless or living in a senior care (including now)? No 10/01/2024 Sex and Gender Information Value Date Recorded Sex Assigned at Not on file Legal Sex Male 7:25 PM CDT Gender Identity Not on file Sexual Orientation Not on file Last Filed Vital Signs Vital Sign Reading Time Taken Comments Blood Pressure 152/77 10/02/2024 11:31 AM FURNACE PACKER Pulse 58 10/02/2024 11:31 AM FURNACE PACKER Temperature 36.7 C (98 F) 10/02/2024 7:39 AM FURNACE PACKER Respiratory Rate 19 10/02/2024 11:31 AM FURNACE PACKER Oxygen Saturation 99% 10/02/2024 11:31 AM FURNACE PACKER Inhaled Oxygen Concentration - - Weight 90.9 kg (200 lb 6.4 oz) 10/02/2024 6:46 A M FURNACE PACKER Height 190.5 cm (6' 3 ) 10/01/2024 9:34 AM FURNACE PACKER Body Mass Index 25.05 10/01/2024 9:34 AM FURNACE PACKER Plan of Treatment Health Maintenance Due Date [...] 4:25 PM 09/25/2024 7:07 PM Care Teams Klystrom Tube Tester Relationship Specialty Start Date End Date Kyle Hendricks MD [address] [place] [address] PCP - General INTERNAL MEDICINE 09/23/24 Denis Blunt MD [address] [facility] [address] [place] [address] CARDIOVASCULAR DISEASE 09/16/24
--- NOTE | 2025-01-09 03:00 | ED_ITS ---
HPI - Male Genitourinary General Chief complaint: Urogenital-Male Stated complaint: poss kidney stone Time Seen by Provider: 01/09/25 02:30 History of Present Illness HPI Narrative: 79-year-old male with a past medical history including CLL currently getting treatments with infusions and vincristine. Patient presents to the emergency room with chief complaint of left-sided flank pain. Patient states it feels similar to a kidney stone that he has had previously. He does follow with [facility] for prostatic issues and had a TURP procedure with them. Denies any hematuria, dysuria, nausea, vomiting. He states his left flank pain it has been bothering for about 1 week and 3/10 in intensity and comes in spasms. Denies any chest pain, shortness a breath. He does have some cardiac history including a CABG history as well as atrial fibrillation and Xarelto. Patient was otherwise in his normal state of health. Tried some Tylenol at home which seemed to help his pain. Related Data Home Medications ?Medication ?Instructions ?Recorded ?Confirmed ?Last Taken ?Type finasteride 5 mg tablet 5 mg PO DAILY 01/01/23 08/14/24 04/25/24 History rosuvastatin 20 mg tablet 40 mg PO DAILY 01/01/23 08/14/24 04/25/24 History coenzyme Q10 100 mg capsule 100 mg PO DAILY 01/16/23 08/14/24 04/25/24 History (CoQ-10) metoprolol succinate 25 mg 50 mg PO HS 01/16/23 08/14/24 04/25/24 History tablet,extended release 24 hr pantoprazole 40 mg tablet,delayed 40 mg PO DAILY 01/16/23 08/14/24 04/25/24 History release aspirin 81 mg tablet,delayed 81 mg PO DAILY 04/19/24 08/14/24 04/25/24 History release tamsulosin 0.4 mg capsule 0.4 mg PO DAILY 04/19/24 08/14/24 04/25/24 History amiodarone 200 mg tablet 200 mg PO DAILY 04/26/24 08/14/24 Unknown History rivaroxaban 20 mg tablet (Xarelto) 20 mg PO DAILY 05/06/24 08/14/24 Unknown History Allergies Allergy/AdvReac Type Severity Reaction Status Date / Time Penicillins Allergy Unknown Hives Verified 01/09/25 02:22 Review of Systems 2 Review of Systems: As reviewed above in [facility] Past Medical History Medical History CAD (coronary artery disease) Thrombocytopathia Chronic lymphocytic leukemia Overweight (BMI 25.0-29.9) Arthritis BPH (benign prostatic hyperplasia) Chronic GERD Aftercare following right shoulder joint replacement surgery DVT (deep venous thrombosis) Kidney stone Hyperlipemia Hypertension Surgical History Surgical History S/P TURP History of endoscopic harvesting of vein S/P CABG x 4 Hx of CABG 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 Smoking packs per day: 1 Smoking cigarettes per day: 20.0 Years smoked: 4 Smoking pack-years: 4.00 Smoking status: Never smoker Tobacco type: cigarettes Second hand tobacco smoke exposure: No Smoking end date: 10/08/75 Alcohol intake: never Drinks per week: 1 Substance use: never Do You Feel Safe in your Home?: Yes Lack of Transportation: No Lack of Food: Never True Current Housing: I Have Housing Concerned About Future Housing: No Difficulty Paying Gas/Electric Bills: No Difficulty Paying for Meds: No Currently Unemployed: No Education: Decline to Answer Difficulty w/ Childcare or Family Care: No Living arrangements: with family Spiritual care concerns: No Exam 2 Narrative: GENERAL: [Well-appearing, well-nourished, and in no acute distress.] HEAD: [Normocephalic, atraumatic.] EYES: [PERRLA and EOMI.] ENT: Nares clear, no rhinorrhea or epistaxis. Mucous membranes moist. NECK: Supple. CHEST: [Clear to auscultation. No respiratory distress.] HEART: [Regular rate and rhythm]. No murmur heard. [Normal peripheral pulses.] ABDOMEN: [Soft, nondistended], [nontender], [No rigidity or guarding] EXTREMITIES: Normal range of motion. [No edema.] SKIN: Warm, dry, no rash. NEURO: [No focal deficits]. Alert and oriented [x3.] PSYCH: [Normal mood and affect.] Course Vital Signs Vital signs: Vital Signs Pulse Rate 69 01/09/25 02:46 Respiratory Rate 17 01/09/25 02:46 Blood Pressure 142/82 H 01/09/25 02:46 Pulse Oximetry 98 01/09/25 02:46 Pulse Rate 65 01/09/25 04:30 Respiratory Rate 16 01/09/25 04:30 Blood Pressure 162/78 H 01/09/25 04:30 Pulse Oximetry 96 01/09/25 04:30 MDM - Male Genitourinary MDM Narrative Medical decision making narrative: 79-year-old male with history of CABG, atrial fibrillation on Xarelto, history of kidney stones, CLL currently undergoing therapy with infusion therapy weekly and vincristine. Patient presents to the emergency department today with left- sided flank pain ongoing for about 1 week periods feels very similar to his previous kidney stones. He describes waves of pain where he is unable to lie still and increased pain. Denies any urinary complaints such as hematuria, dysuria. No fever chills, no nausea vomiting, chest pain, shortness a breath. He is otherwise very well-appearing. Took Tylenol home with some improvement pain. Normal vital signs without any tachycardia, fever or hypoxia. Normal blood pressure. Considerations presently are for a kidney stone, renal colic, hydronephrosis, urinary tract infection, less likely intra-abdominal process such as diverticulitis. Workup was ordered including CBC, CMP, urinalysis, uric acid, CT scan without contrast and he was given Dilaudid and fluids. Patient re-evaluated. CT scan shows multiple nonobstructing calculi in the left kidney with no signs of obstruction. Incidental felt cholelithiasis and stable splenomegaly. Diverticulosis coli also seen. Patient's laboratory studies are reassuring. White blood cells of 5.5 significantly decreased from his prior elevations from CLL likely secondary to ongoing chemotherapy. BUN and creatinine her decreased from prior also reassuring. Hemoglobin at 12.4, platelets of 71 at his baseline. Electrolytes are unremarkable. Normal glucose. Normal LFTs. Negative uric acid. Urinalysis shows some blood but no signs of infection. I went and re-evaluated the patient who had symptomatic resolution and no recurrence. Patient likely has renal colic from his multiple nonobstructing stones in left kidney. I instructed him to follow-up with his urologist about this outpatient and we will start him on Flomax daily in addition to given him as needed pain control medications to take outpatient. Patient verbalized understanding and was given strict return precautions and he was safe for discharge at this time. Medical Records Attestation: I reviewed the patient's medical records. Lab Data Attestation: I reviewed the patient's lab results. 01/09/25 02:39 01/09/25 02:39 Labs: Lab Results 01/09/25 Range/Units 02:39 WBC 5.5 (4.5-10.0) K/mm3 RBC 4.41 L (4.6-6.20) M/mm3 Hgb 12.4 L (14.0-18.0) g/dL Hct 39.8 L (42.0-52.0) % MCV 90.2 (80-100) fl MCH 28.1 (26-34) pg MCHC 31.2 L (32-36) g/dl RDW 20.9 H (11.5-14.5) % Plt Count 71 L (150-375) k/mm3 MPV 10.5 H (7.4-10.4) fl Immature Gran % (Auto) Not Reportable Neut % (Auto) Not Reportable Lymph % (Auto) Not Reportable Pepin % (Auto) Not Reportable Eos % (Auto) Not Reportable Baso % (Auto) Not Reportable Lymph # (Auto) Not Reportable Pepin # (Auto) Not Reportable Eos # (Auto) Not Reportable Baso # (Auto) Not Reportable Abs Immat Gran (auto) Not Reportable Absolute Neuts (auto) Not Reportable Absolute Nucleated RBC Not Reportable Total Counted 50 Neutrophils % (Manual) 52 (46-73) % Band Neutrophils % 8 H (0-6) % Lymphocytes % (Manual) 28.0 (18-44) % Monocytes % (Manual) 12 H (3-9) % Nucleated RBC % Not Reportable Abs Neuts (Manual) 3.30 (1.3-6.7) K/mm3 Abs Lymphs (Manual) 1.54 (1.1-4.5) K/mm3 Abs Monocytes (Manual) 0.66 (0.1-0.90) K/mm3 Atypical Lymphocytes Present Platelet Estimate Decreased (Adequate) % Immature Plt Fraction 2.4 (0.9-11.2) % Hypochromasia 1+ Anisocytosis 1+ Ovalocytes 1+ Schistocytes None seen Sodium 141 (137-145) mmol/L Potassium 3.9 (3.4-5.0) mmol/L Chloride 102 (98-107) mmol/L Carbon Dioxide 27 (22-30) mmol/L Anion Gap 12 (4-12) mmol/L BUN 36 H (9-20) mg/dL Creatinine 1.70 H (0.7-1.3) mg/dL Estim Creat Clear Calc 38 ml/min Estimated GFR 39 L (59 - ) Glucose 114 H (65-110) mg/dL Uric Acid 5.9 (3.5-8.5) mg/dL Calcium 9.6 (8.4-10.2) mg/dL Total Bilirubin 1.4 H (0.2-1.3) mg/dL AST 33 (17-59) U/L ALT 41 (6-50) U/L Alkaline Phosphatase 122 (38-126) U/L Total Protein 8.0 (6.3-8.2) g/dL Albumin 4.8 (3.5-5.1) g/dL Urine Color Yellow (Yellow) Urine Appearance Clear (Clear) Urine pH 6.5 (5.0-9.0) Ur Specific [place] 1.016 (1.001-1.035) Urine Protein 3+ H (Negative) mg/dL Urine Glucose (UA) Negative (Negative) mg/dL Urine Ketones Negative (Negative) mg/dL Ur Blood (Man) 3+ H (Negative) Urine Nitrate Negative (Negative) Urine Bilirubin Negative (Negative) Urine Urobilinogen 1.0 (<2.0) mg/dL Leukocyte Esterase Rfl Trace H (Negative) JOSH/UL Urine RBC 51-100 H (0-2) /hpf Urine WBC 6-10 H (0-3) /hpf Ur Squamous Epith Cells None seen (Few) /hpf Urine Bacteria None seen /hpf Urine Casts 0-2 Imaging Data Attestation: I personally reviewed and interpreted this imaging study as follows: My impression: Nonobstructing left kidney stones. Cholelithiasis. Discharge Plan Discharge Clinical Impression: Renal colic on left side, Chronic lymphocytic leukemia Patient Disposition: Home, Self-Care Condition: Stable Instructions: Antibiotic Form, Renal Colic (ED), How to Strain Your Urine (ED), Flank Pain (ED) Additional Instructions: Your CT scan shows no acute intra-abdominal process. He do have some nonobstructing kidney stones in the left side consistent with for your symptoms are. No signs of any obstruction or infection. Your laboratory studies are reassuring. We will send you home with some as needed symptom controlling medications as well as daily Flomax. Call your urologist for close outpatient visit for potential interventions. Return if you exhibit any difficulty urinating, intractable pain, nausea vomiting, fevers or any other concerns. Patient Language: Sami Prescriptions: New ondansetron 4 mg tablet,disintegrating 4 mg PO Q8H PRN (Reason: nausea and vomiting) Qty: 10 0RF oxycodone 5 mg tablet 5 mg PO Q8H PRN (Reason: pain) Qty: 10 0RF acetaminophen [Tylenol Extra Strength] 500 mg tablet 1,000 mg PO TID PRN (Reason: pain) Qty: 30 0RF tamsulosin [Flomax] 0.4 mg capsule 0.4 mg PO DAILY Qty: 30 0RF No Action aspirin 81 mg Tablet,Delayed Release (Dr/Ec) 81 mg PO DAILY tamsulosin 0.4 mg capsule 0.4 mg PO DAILY amiodarone 200 mg tablet 200 mg PO DAILY finasteride 5 mg tablet 5 mg PO DAILY rosuvastatin 20 mg tablet 40 mg PO DAILY Xarelto 20 mg tablet 20 mg PO DAILY furosemide 40 mg Tablet 40 mg PO DAILY Qty: 30 0RF Entresto 24-26 mg Tablet 1 tablet PO Q12HR Qty: 60 0RF spironolactone 25 mg tablet 12.5 mg PO DAILY Qty: 30 0RF potassium chloride 20 mEq tablet extended release 20 meq PO DAILY Qty: 30 0RF pantoprazole 40 mg tablet,delayed release (DR/EC) 40 mg PO DAILY coenzyme Q10 [CoQ-10] 100 mg Capsule 100 mg PO DAILY metoprolol succinate 25 mg tablet extended release 24 hr 50 mg PO Follow-up/Referrals: Kyle Hendricks MD [Primary Care Provider] - Time of Disposition: 05:04
--- OUTSIDE RECORDS SUMMARY | 2025-01-09 03:00 | XMS_ITS ---
Author Organization [facility] Address [address] [place] [address] Care Team Providers Care Substance Abuse Rn Name Role Phone Kyle Hendricks MD Primary Care Provider [phone] Amilcar Sarabia MD Unavailable [phone] Cas Taylor MD Unavailable [phone] Active Problems Problem Noted Date Diagnosed Date [...] - patient followed by Dr. 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 -Monitor daily CBC, WBC 57.1, Hgb 7.1, Plt 91 - Transfused 1 unit prbc for hemoglobin level of 6.6 on repeat CBC - Hemoglobin 7.6 post transfusion CAD in [place] artery 03/11/2024 Assessment & Plan (03/21/2024 2:42 PM CDT): 03/14: CABGx4 (VILLALTA-LAD, HRH-IN-Duavm PLB, SVG-PDA), JOYCE clip (40mm) -TTF on [...]
--- OUTSIDE RECORDS SUMMARY | 2025-01-09 03:00 | XMS_ITS | Referral Summary ---
Author Organization [facility] Address [address] [place] [address] Care Team Providers Care Supervisor Forming Department Name Role Phone Kyle Hendricks MD Primary Care Provider [phone] Amilcar Sarabia MD Unavailable [phone] Cas Taylor MD Unavailable [phone] Encounters Date Type Department Care Team Description 01/07/2025 7:45 AM CDT Clinical Support [facility] - Lab Collection [address] [place] [address] 6 [place] [address] Chronic lymphoid leukemia, without mention of having achieved remission(204.10) (HCC) 01/07/2025 10:00 AM CDT Infusion [facility] Infusion [address] [facility] 6 [place] [address] Chemotherapy-induced neutropenia (Primary Dx); Chronic lymphoid leukemia, without mention of having achieved remission(204.10) (HCC) 01/07/2025 8:00 AM CDT Lab [facility] [address] [place] [address] 6 [place] [address] Chronic lymphoid leukemia, without mention of having achieved remission(204.10) (HCC); Chemotherapy-induced neutropenia 01/07/2025 9:00 AM CDT Office Visit [facility] [address] [place] [phone] Jolie Iraheta NP CLL (chronic lymphocytic leukemia) (HCC) (Primary Dx); Chronic lymphoid leukemia, without mention of having achieved remission(204.10) (HCC); Chemotherapy-induced neutropenia 12/17/2024 7:30 AM CDT Infusion [facility] 6 [place] [address] Iron deficiency anemia, unspecified iron deficiency anemia type (Primary Dx); CLL (chronic lymphocytic leukemia) ([facility]); Chronic lymphoid leukemia, without mention of having achieved remission(204.10) ([facility]) 12/10/2024 7:45 AM CYBER SECURITY Lab [facility] Collection [address] [place] [address] Chronic lymphoid leukemia, without mention of having achieved remission(204.10) ([facility]); CLL (chronic lymphocytic leukemia) ([facility]) 12/10/2024 2:30 PM CYBER SECURITY Infusion [facility]fusion [address] [place] [address] [place] [address] CLL (chronic lymphocytic leukemia) ([facility]) 12/10/2024 9:30 AM CYBER SECURITY Infusion [facility]fusion [address] [place] [address] 6 [place] [address] Chronic lymphoid leukemia, without mention of having achieved remission(204.10) ([facility]) (Primary Dx); Iron deficiency anemia, unspecified iron deficiency anemia type 12/10/2024 7:30 AM CYBER SECURITY Lab [facility] [address] [place] [phone] Chronic lymphoid leukemia, without mention of having achieved remission(204.10) ([facility]) 12/10/2024 8:30 AM CYBER SECURITY Office Visit [facility] [address] [place] [phone] Amilcar Sarabia MD CLL (chronic lymphocytic leukemia) ([facility]) (Primary Dx); Chronic lymphoid leukemia, without mention of having achieved remission(204.10) ([facility]) 11/26/2024 Telephone [facility] [address] [place] [phone] Jolie Iraheta NP 11/26/2024 7:40 AM CYBER SECURITY Lab [address] [phone] Chronic lymphoid leukemia, without mention of having achieved remission(204.10) ([facility]) 11/19/2024 Telephone [facility] [address] [place] [address] 6 [place] [phone] Leeanna Vela RN 11/19/2024 Orders Only [facility] [address] [place] [address] 6 [place] [phone] Leeanna Vela RN Chronic lymphoid leukemia, without mention of having achieved remission(204.10) ([facility]) (Primary Dx) 11/19/2024 8:05 AM CYBER SECURITY Lab [address] [phone] Chronic lymphoid leukemia, without mention of having achieved remission(204.10) ([facility]) 11/14/2024 Orders Only [facility] [address] [place] [phone] Jolie Iraheta NP CLL (chronic lymphocytic leukemia) ([facility]) (Primary Dx) 11/13/2024 Telephone [facility] [address] [place] [phone] Leeanna Vela RN 11/13/2024 8:15 AM CYBER SECURITY Lab [address] [phone] Chronic lymphoid leukemia, without mention of having achieved remission(204.10) ([facility]) 11/12/2024 7:45 AM CYBER SECURITY Lab [facility] Collection [address] [place] [address] Floor 6 [place] [address] Chronic lymphoid leukemia, without mention of having achieved remission(204.10) ([facility]) 11/12/2024 10:00 AM CYBER SECURITY Infusion [facility] Infusion [address] [place], [place] [address]e Floor 5 [place] [address] Chronic lymphoid leukemia, without mention of having achieved remission(204.10) ([facility]) (Primary Dx) 11/12/2024 9:00 AM CYBER SECURITY Office Visit [facility] [address] [place] [address] Floor 6 [place] [phone] Jolie Iraheta NP CLL (chronic lymphocytic leukemia) ([facility]) (Primary Dx); Chronic lymphoid leukemia, without mention of having achieved remission(204.10) ([facility]) 11/12/2024 8:00 AM CYBER SECURITY Lab [facility] [address] [place] [phone] Chronic lymphoid leukemia, without mention of having achieved remission(204.10) ([facility]) 11/06/2024 Telephone [facility] [address] [place] [phone] Leeanna Vela RN 11/06/2024 8:55 AM CYBER SECURITY Lab [address] [phone] Chronic lymphoid leukemia, without mention of having achieved remission(204.10) ([facility]) 11/05/2024 2:45 PM CYBER SECURITY Lab [facility] [address] [place] [phone] Chronic lymphoid leukemia, without mention of having achieved remission(204.10) ([facility]) 11/05/2024 9:15 AM CYBER SECURITY Clinical Support [facility] Collection [address] [place] [address] Chronic lymphoid leukemia, without mention of having achieved remission(204.10) ([facility]) 11/05/2024 10:00 AM CYBER SECURITY Office Visit [facility] [address] [place], [place] [phone] Jolie Iraheta NP Chronic lymphoid leukemia, without mention of having achieved remission(204.10) ([facility]) (Primary Dx) 11/05/2024 9:00 AM CYBER SECURITY Lab [facility] [address] [place] [phone] Chronic lymphoid leukemia, without mention of having achieved remission(204.10) ([facility]) 11/05/2024 7:08 AM CYBER SECURITY - 11/05/2024 11:59 PM CYBER SECURITY Hospital [facility] [address] [place] [address] Amilcar Sarabia MD CLL (chronic lymphocytic leukemia) ([facility]) Discharge Disposition: Discharge to home or self care 10/29/2024 8:00 AM CYBER SECURITY Lab [facility] [address] [place] [address] Chronic lymphoid leukemia, without mention of having achieved remission(204.10) (HCC) 10/29/2024 9:00 AM CYBER SECURITY Infusion [facility]fusion [address] [place] [address] Floor 6 [place] [address] Chronic lymphoid leukemia, without mention of having achieved remission(204.10) (HCC) (Primary Dx) 10/23/2024 8:15 AM CYBER SECURITY Office Visit [facility] [address] [place] [address] Denis Blunt MD Ischemic cardiomyopathy (Primary Dx) 10/22/2024 8:00 AM CYBER SECURITY Lab [facility] [address] [place] [address] 6 [place] [address] Chronic lymphoid leukemia, without mention of having achieved remission(204.10) (HCC); CAD in [place] artery 10/22/2024 9:00 AM CYBER SECURITY Infusion [facility] [address] [place] [address] Chronic lymphoid leukemia, without mention of having achieved remission(204.10) (HCC) (Primary Dx) 10/17/2024 Documentation [facility] [address] [place] [address] Leni Bull, RMA FINANCIAL ASSIST [employer] 10/17/2024 Telephone [facility] [address] [place] [phone] Leni So RN 10/16/2024 Orders Only [facility] 6 [place] [address] Amilcar Sarabia MD Chronic lymphoid leukemia, without mention of having achieved remission(204.10) (HCC) (Primary Dx) 10/16/2024 9:00 AM CYBER SECURITY Lab [facility] [address] [place] [address] 6 [place] [address] Chronic lymphoid leukemia, without mention of having achieved remission(204.10) (HCC); CAD [place] 10/16/2024 10:00 AM CYBER SECURITY Infusion [facility] [address] [place] [address] Chronic lymphoid leukemia, without mention of having achieved remission(204.10) ([facility]) (Primary Dx) 10/15/2024 Documentation [facility] [address] [place] [phone] Tanesha Pacheco, RMA Appointment 10/15/2024 7:30 AM CYBER SECURITY Lab [facility] [address] [place] [address] Chronic lymphoid leukemia, without mention of having achieved remission(204.10) ([facility]); CLL (chronic lymphocytic leukemia) ([facility]) 10/15/2024 9:30 AM CYBER SECURITY Infusion [facility] [address] [place] [address] Chronic lymphoid leukemia, without mention of having achieved remission(204.10) ([facility]) (Primary Dx) 10/15/2024 8:15 AM CYBER SECURITY Office Visit [facility] [address] [place] [phone] Amilcar Sarabia MD CLL (chronic lymphocytic leukemia) ([facility]) (Primary Dx); Chronic lymphoid leukemia, without mention of having achieved remission(204.10) ([facility]) 10/15/2024 7:15 AM CYBER SECURITY Lab [facility] [address] [place] [phone] Chronic lymphoid leukemia, without mention of having achieved remission(204.10) ([facility]) 10/14/2024 Telephone [facility] [address] [place] [phone] Leni So RN from Last 3 Months [...] - patient followed by Dr. Sarabia from [facility] - Per BMT team, CLL stable disease okay to proceed with cardiac interventions such as CABG - Counts overall stable--> WBC mildly increased w/ mild decreased in hgb and platelets. -Monitor daily CBC, WBC 57.1, Hgb 7.1, Plt 91 - Transfused 1 unit prbc for hemoglobin level of 6.6 on repeat CBC - Hemoglobin 7.6 post transfusion CAD in [place] 03/11/2024 Assessment & Plan (03/21/2024 2:42 PM CDT): 03/14: CABGx4 (VILLALTA-LAD, SXI-ZC-Suyer PLB, SVG-PDA), JOYCE clip (40mm) -TTF on [...] on file Legal Sex Male 6:26 PM CYBER SECURITY Gender Identity Not on file Sexual Orientation [...] cm (6' 3 ) 11/05/2024 8:35 AM CYBER SECURITY Body Mass Index 24.32 11/05/2024 8:35 AM CYBER SECURITY Plan of Treatment Not on file Medical Devices Implanted Type Area Accounting Policy Consultant Device Identifier Shelf Expiration Date Model / Serial / Lot [employer] Sternalock 360 Sternal Closure 74-0004 - [id number] Implanted:Qty: 1 on 03/14/2024 by Mary Kirk MD at [facility] N/A: Sternum [employer] [id number] 01/15/2029 74-0004 / / [id number] [employer] Sternalock Anshul 2.4mm 12mm Self Drill Lock Sternum Cancellous 73-2412 - [id number] Implanted:Qty: 9 on 03/14/2024 by Mary Kirk MD at [facility] N/A: Sternum [employer] 73-2412 / / [employer] Sternalock Anshul 2.4mm 14mm Self Drill Lock Sternum Cancellous 73-2414 - [id number] Implanted:Qty: 7 on 03/14/2024 by Mary Kirk MD at [facility] N/A: Sternum [employer] 73-2414 / / Atricure Clip Closure Exclusion System Preloaded Standard Left Atrial Appendage Atriclip 40mm [id number] - [id number] Implanted:Qty: 1 on 03/14/2024 by Cas Taylor MD at [facility] Heart Atricure [id number] / / [id number] Procedures Procedure Name Priority Date/Time Associated Diagnosis [...] DIFFERENTIAL AUTO Routine 12/10/2024 8:3 0 AM CYBER SECURITY CLL (chronic lymphocytic leukemia) (HCC) CBC WITH AUTO DIFFERENTIAL Routine 12/10/2024 8:30 AM CYBER SECURITY CLL (chronic lymphocytic leukemia) (HCC) EGFR STAT 12/10/2024 8:10 AM CYBER SECURITY Chronic lymphoid leukemia, without mention of having achieved remission(204.10) (HCC) BETA 2 MICROGLOBULIN SERUM Routine 12/10/2024 8:10 AM CYBER SECURITY Chronic lymphoid leukemia, without mention of having achieved remission(204.10) (HCC) COMPREHENSIVE METABOLIC PANEL STAT 12/10/2024 8:10 AM CYBER SECURITY Chronic lymphoid leukemia, without mention of having achieved remission(204.10) (HCC) LACTATE DEHYDROGENASE Routine 12/10/2024 8:10 AM CYBER SECURITY Chronic lymphoid leukemia, without mention of having achieved remission(204.10) (HCC) EGFR STAT 11/26/2024 7:51 AM CYBER SECURITY Chronic lymphoid leukemia, without mention of having achieved remission(204.10) (HCC) DIFFERENTIAL AUTO STAT 11/26/2024 7:5 1 AM CYBER SECURITY Chronic lymphoid leukemia, without mention of having achieved remission(204.10) (HCC) CBC WITH AUTO DIFFERENTIAL STAT 11/26/2024 7:51 AM CYBER SECURITY Chronic lymphoid leukemia, without mention of having achieved remission(204.10) (HCC) COMPREHENSIVE METABOLIC PANEL STAT 11/26/2024 7:51 AM CYBER SECURITY Chronic lymphoid leukemia, without mention of having achieved remission(204.10) (HCC) PHOSPHORUS STAT 11/26/2024 7:51 AM CYBER SECURITY Chronic lymphoid leukemia, without mention of having achieved remission(204.10) (HCC) URIC ACID STAT 11/26/2024 7:51 AM CYBER SECURITY Chronic lymphoid leukemia, without mention of having achieved remission(204.10) (HCC) EGFR STAT 11/19/2024 10:21 AM CYBER SECURITY Chronic lymphoid leukemia, without mention of having achieved remission(204.10) (HCC) DIFFERENTIAL AUTO STAT 11/19/2024 10: 21 AM CYBER SECURITY Chronic lymphoid leukemia, without mention of having achieved remission(204.10) (HCC) URIC ACID STAT 11/19/2024 10:21 AM CYBER SECURITY Chronic lymphoid leukemia, without mention of having achieved remission(204.10) (HCC) PHOSPHORUS STAT 11/19/2024 10:21 AM CYBER SECURITY Chronic lymphoid leukemia, without mention of having achieved remission(204.10) (HCC) COMPREHENSIVE METABOLIC PANEL STAT 11/19/2024 10:21 AM CYBER SECURITY Chronic lymphoid leukemia, without mention of having achieved remission(204.10) (HCC) CBC WITH AUTO DIFFERENTIAL STAT 11/19/2024 10:21 AM CYBER SECURITY Chronic lymphoid leukemia, without mention of having achieved remission(204.10) (HCC) EGFR STAT 11/13/2024 8:21 AM CYBER SECURITY Chronic lymphoid leukemia, without mention of having achieved remission(204.10) (HCC) URIC ACID STAT 11/13/2024 8:21 AM CYBER SECURITY Chronic lymphoid leukemia, without mention of having achieved remission(204.10) (HCC) PHOSPHORUS STAT 11/13/2024 8:21 AM CYBER SECURITY Chronic lymphoid leukemia, without mention of having achieved remission(204.10) (HCC) COMPREHENSIVE METABOLIC PANEL STAT 11/13/2024 8:21 AM CYBER SECURITY Chronic lymphoid leukemia, without mention of having achieved remission(204.10) (HCC) EGFR STAT 11/12/2024 3:30 PM CYBER SECURITY Chronic lymphoid leukemia, without mention of having achieved remission(204.10) (HCC) URIC ACID STAT 11/12/2024 3:30 PM CYBER SECURITY Chronic lymphoid leukemia, without mention of having achieved remission(204.10) (HCC) PHOSPHORUS STAT 11/12/2024 3:30 PM CYBER SECURITY Chronic lymphoid leukemia, without mention of having achieved remission(204.10) (HCC) BASIC METABOLIC PANEL STAT 11/12/2024 3:30 PM CYBER SECURITY Chronic lymphoid leukemia, without mention of having achieved remission(204.10) (HCC) IRON PROFILE W/ IBC STAT 11/12/2024 7 :48 AM CYBER SECURITY Chronic lymphoid leukemia, without mention of having achieved remission(204.10) (HCC) FERRITIN STAT 11/12/2024 7:48 AM CYBER SECURITY Chronic lymphoid leukemia, without mention of having achieved remission(204.10) (HCC) EGFR STAT 11/12/2024 7:48 AM CYBER SECURITY Chronic lymphoid leukemia, without mention of having achieved remission(204.10) (HCC) DIFFERENTIAL AUTO STAT 11/12/2024 7:4 8 AM CYBER SECURITY Chronic lymphoid leukemia, without mention of having achieved remission(204.10) (HCC) CBC WITH AUTO DIFFERENTIAL STAT 11/12/2024 7:48 AM CYBER SECURITY Chronic lymphoid leukemia, without mention of having achieved remission(204.10) (HCC) COMPREHENSIVE METABOLIC PANEL STAT 11/12/2024 7:48 AM CYBER SECURITY Chronic lymphoid leukemia, without mention of having achieved remission(204.10) (HCC) LACTATE DEHYDROGENASE Routine 11/12/2024 7:48 AM CYBER SECURITY Chronic lymphoid leukemia, without mention of having achieved remission(204.10) (HCC) PHOSPHORUS STAT 11/12/2024 7:48 AM CYBER SECURITY Chronic lymphoid leukemia, without mention of having achieved remission(204.10) (HCC) URIC ACID STAT 11/12/2024 7:48 AM CYBER SECURITY Chronic lymphoid leukemia, without mention of having achieved remission(204.10) (HCC) EGFR STAT 11/06/2024 9:10 AM CYBER SECURITY Chronic lymphoid leukemia, without mention of having achieved remission(204.10) (HCC) DIFFERENTIAL AUTO STAT 11/06/2024 9:1 0 AM CYBER SECURITY Chronic lymphoid leukemia, without mention of having achieved remission(204.10) (HCC) LACTATE DEHYDROGENASE Routine 11/06/2024 9:10 AM CYBER SECURITY Chronic lymphoid leukemia, without mention of having achieved remission(204.10) (HCC) BETA 2 MICROGLOBULIN SERUM Routine 11/06/2024 9:10 AM CYBER SECURITY Chronic lymphoid leukemia, without mention of having achieved remission(204.10) (HCC) CBC WITH AUTO DIFFERENTIAL STAT 11/06/2024 9:10 AM CYBER SECURITY Chronic lymphoid leukemia, without mention of having achieved remission(204.10) (HCC) COMPREHENSIVE METABOLIC PANEL STAT 11/06/2024 9:10 AM CYBER SECURITY Chronic lymphoid leukemia, without mention of having achieved remission(204.10) (HCC) PHOSPHORUS STAT 11/06/2024 9:10 AM CYBER SECURITY Chronic lymphoid leukemia, without mention of having achieved remission(204.10) (HCC) URIC ACID STAT 11/06/2024 9:10 AM CYBER SECURITY Chronic lymphoid leukemia, without mention of having achieved remission(204.10) (HCC) EGFR STAT 11/05/2024 2:43 PM CYBER SECURITY Chronic lymphoid leukemia, without mention of having achieved remission(204.10) (HCC) BASIC METABOLIC PANEL STAT 11/05/2024 2:43 PM CYBER SECURITY Chronic lymphoid leukemia, without mention of having achieved remission(204.10) (HCC) PHOSPHORUS STAT 11/05/2024 2:43 PM CYBER SECURITY Chronic lymphoid leukemia, without mention of having achieved remission(204.10) (HCC) URIC ACID STAT 11/05/2024 2:43 PM CYBER SECURITY Chronic lymphoid leukemia, without mention of having achieved remission(204.10) (HCC) EGFR STAT 11/05/2024 8:24 AM CYBER SECURITY Chronic lymphoid leukemia, without mention of having achieved remission(204.10) (HCC) DIFFERENTIAL AUTO STAT 11/05/2024 8:2 4 AM CYBER SECURITY Chronic lymphoid leukemia, without mention of having achieved remission(204.10) (HCC) CBC WITH AUTO DIFFERENTIAL STAT 11/05/2024 8:24 AM CYBER SECURITY Chronic lymphoid leukemia, without mention of having achieved remission(204.10) (HCC) COMPREHENSIVE METABOLIC PANEL STAT 11/05/2024 8:24 AM CYBER SECURITY Chronic lymphoid leukemia, without mention of having achieved remission(204.10) (HCC) PHOSPHORUS STAT 11/05/2024 8:24 AM CYBER SECURITY Chronic lymphoid leukemia, without mention of having achieved remission(204.10) (HCC) URIC ACID STAT 11/05/2024 8:24 AM CYBER SECURITY Chronic lymphoid leukemia, without mention of having achieved remission(204.10) (HCC) LACTATE DEHYDROGENASE Routine 11/05/2024 8:24 AM CYBER SECURITY Chronic lymphoid leukemia, without mention of having achieved remission(204.10) (HCC) CT CHEST ABDOMEN PELVIS W CONTRAST Schedule JAZMIN, Read JAZMIN (Appt Today, Awaiting Results) 11/05/2024 7:50 AM CYBER SECURITY CLL (chronic lymphocytic leukemia) (HCC) DIFFERENTIAL AUTO STAT 10/29/2024 8:0 7 AM CYBER SECURITY Chronic lymphoid leukemia, without mention of having achieved remission(204.10) (HCC) CBC WITH AUTO DIFFERENTIAL STAT 10/29/2024 8:07 AM CYBER SECURITY Chronic lymphoid leukemia, without mention of having achieved remission(204.10) (HCC) EGFR Routine 10/22/2024 8:20 AM CYBER SECURITY CAD in [place] artery DIFFERENTIAL AUTO STAT 10/22/2024 8:2 0 AM CYBER SECURITY Chronic lymphoid leukemia, without mention of having achieved remission(204.10) (HCC) COMPREHENSIVE METABOLIC PANEL Routine 10/22/2024 8:20 AM CYBER SECURITY CAD in [place] CBC WITH AUTO DIFFERENTIAL STAT 10/22/2024 8:20 AM CYBER SECURITY Chronic lymphoid leukemia, without mention of having achieved remission(204.10) (HCC) EGFR STAT 10/16/2024 4:56 PM CYBER SECURITY Chronic lymphoid leukemia, without mention of having achieved remission(204.10) (HCC) BASIC METABOLIC PANEL STAT 10/16/2024 4:56 PM CYBER SECURITY Chronic lymphoid leukemia, without mention of having achieved remission(204.10) (HCC) URIC ACID STAT 10/16/2024 4:56 PM CYBER SECURITY Chronic lymphoid leukemia, without mention of having achieved remission(204.10) (HCC) EGFR STAT 10/16/2024 9:07 AM CYBER SECURITY Chronic lymphoid leukemia, without mention of having achieved remission(204.10) (HCC) CBC WITHOUT DIFFERENTIAL Routine 10/16/2024 9:07 AM CYBER SECURITY CAD in [place] LACTATE DEHYDROGENASE STAT 10/16/2024 9:07 AM CYBER SECURITY Chronic lymphoid leukemia, without mention of having achieved remission(204.10) (HCC) URIC ACID STAT 10/16/2024 9:07 AM CYBER SECURITY Chronic lymphoid leukemia, without mention of having achieved remission(204.10) (HCC) PHOSPHORUS STAT 10/16/2024 9:07 AM CYBER SECURITY Chronic lymphoid leukemia, without mention of having achieved remission(204.10) (HCC) BASIC METABOLIC PANEL STAT 10/16/2024 9:07 AM CYBER SECURITY Chronic lymphoid leukemia, without mention of having achieved remission(204.10) (HCC) HEPATITIS C ANTIBODY Routine 10/15/2024 9:53 AM CYBER SECURITY CLL (chronic lymphocytic leukemia) (HCC) HEPATITIS B SURFACE ANTIGEN Routine 10/15/2024 9:53 AM CYBER SECURITY CLL (chronic lymphocytic leukemia) (HCC) HEPATITIS B SURFACE ANTIBODY (IMMUNE STATUS) Routine 10/15/2024 9:53 AM CYBER SECURITY CLL (chronic lymphocytic leukemia) (HCC) HEPATITIS B CORE ANTIBODY, TOTAL Routine 10/15/2024 9:53 AM CYBER SECURITY CLL (chronic lymphocytic leukemia) (HCC) EGFR STAT 10/15/2024 7:37 AM CYBER SECURITY Chronic lymphoid leukemia, without mention of having achieved remission(204.10) (HCC) MANUAL DIFFERENTIAL Routine 10/15/2024 7 :37 AM CYBER SECURITY Chronic lymphoid leukemia, without mention of having achieved remission(204.10) (HCC) CBC WITH AUTO DIFFERENTIAL Routine 10/15/2024 7:37 AM CYBER SECURITY Chronic lymphoid leukemia, without mention of having achieved remission(204.10) (HCC) COMPREHENSIVE METABOLIC PANEL STAT 10/15/2024 7:37 AM CYBER SECURITY Chronic lymphoid leukemia, without mention of having achieved remission(204.10) (HCC) PHOSPHORUS STAT 10/15/2024 7:37 AM CYBER SECURITY Chronic lymphoid leukemia, without mention of having achieved remission(204.10) (HCC) URIC ACID STAT 10/15/2024 7:37 AM CYBER SECURITY Chronic lymphoid leukemia, without mention of having achieved remission(204.10) (HCC) LACTATE DEHYDROGENASE Routine 10/15/2024 7:37 AM CYBER SECURITY Chronic lymphoid leukemia, without mention of having [...] LAB BLOOD ORDERABLES Final R esult [facility] Department of [place] [address] * (ABNORMAL) Lactate dehydrogenase (LD) (01/07/2025 8:08 AM CDT) Lactate dehydrogenase (LDH) 281(H) 100 - 250 Units/L Blood 01/07/2025 8:08 AM CDT 01/07/2025 8:20 AM CDT us Amilcar Sarabia MD LAB BLOOD ORDERABLES Final R esult [facility] [place] [address] * (ABNORMAL) Comprehensive metabolic panel (01/07/2025 8:08 AM CDT) Sodium 144 135 - 145 mmol/L Potassium, pl 4.1 3.3 - 4.9 mmol/L [facility] Chloride 110 97 - 110 mmol/L [facility] CO2 24 22 - 32 mmol/L [facility] Anion gap 10 2 - 15 mmol/L [facility] BUN 41(H) 6 - 25 mg/dL [facility] Creatinine 1.55(H) 0.80 - 1.30 mg/dL [facility] Glucose 115 70 - 199 mg/dL [facility] Comment: Interpretive Data Fasting glucose >/= 126 [...] 2022. Calcium 9.6 8.5 - 10.3 mg/dL [facility] Bilirubin, total 0.5 0.1 - 1.2 mg/dL [facility] Protein, pl 7.0 6.5 - 8.5 g/dL [facility] Albumin 4.3 3.5 - 5.0 g/dL [facility] Alk phos 120 40 - 130 Units/L [facility] ALT 39 7 - 55 Units/L [facility] AST 48 10 - 50 Units/L [facility] Comment:Hemolyzed; result ma y be falsely elevated Blood 01/07/2025 8:08 AM CDT 01/07/2025 8:20 AM CDT Amilcar Sarabia MD LAB BLOOD ORDERABLES Final R esult [facility] [place] [address] * (ABNORMAL) Differential, auto (01/07/2025 8:05 AM CDT) Neutrophil abs 1.08(L) 1.50 - 6.50 K/cumm Comment:Testing performed by : [facility], [address] [place], [place] [id number] Lymphocyte abs 0.41(L) 0.80 - 3.30 K/cumm BEN CERRATO Comment:Testing performed by : [facility], [address] [place] [phone] Monocyte abs 0.31 0.20 - 0.80 K/cumm BEN CERRATO Comment:Testing performed by : [facility], [address] [place], [place] [phone] Eosinophil abs 0.04 0.00 - 0.50 K/cumm [facility]EN [facility] Comment:Testing performed by : [facility], [address] [place], [place] [phone] Basophil abs 0.02 0.00 - 0.10 K/cumm BEN [facility] Comment:Testing performed by : [facility], [address] [place], [place] [phone] Neutrophil pct 57.9 % CERNER BJ Comment: Interpretive Data Percent cell count reference ranges are not reported, since discordance with absolute values may lead to misinterpretation of CBC data. Current Interpretive Data was last revised on 2018. Testing performed by: [facility], [address] [place] [phone] Lymphocyte pct 22.3 % CERNER BJ Comment: Interpretive Data Percent cell count reference ranges are not reported, since discordance with absolute values may lead to misinterpretation of CBC data. Current Interpretive Data was last revised on 2018. Testing performed by: [facility], [address] [place] [phone] Monocyte pct 16.4 % BEN CERRATO Comment: Interpretive Data Percent cell count reference ranges are not reported, since discordance with absolute values may lead to misinterpretation of CBC data. Current Interpretive Data was last revised on 2018. Testing performed by: [facility], [address] [place], [place] [phone] Eosinophil pct 2.2 % BEN CERRATO Comment: Interpretive Data Percent cell count reference ranges are not reported, since discordance with absolute values may lead to misinterpretation of CBC data. Current Interpretive Data was last revised on 2018. Testing performed by: [facility], [address] [place], [place] [phone] Basophil pct 1.2 % BEN CERRATO Comment: Interpretive Data Percent cell count reference ranges are not reported, since discordance with absolute values may lead to misinterpretation of CBC data. Current Interpretive Data was last revised on 2018. Testing performed by: [facility], [address] [place] [phone] Blood 01/07/2025 8:05 AM CDT 01/07/2025 8:20 AM CDT us Amilcar Sarabia MD LAB BLOOD ORDERABLES Final R esult BEN CERRAT[facility] [place] [address] * (ABNORMAL) CBC with auto differential (01/07/2025 8:05 AM CDT) WBC 1.86(L) 3.80 - 9.90 K/cumm Comment:Testing performed by : [facility], [address] [place] [phone] Hgb 11.7(L) 13.0 - 17.5 g/dL BEN CERRATO Comment:Testing performed by : [facility], [address] [place] [address] Hct 35.4(L) 38.9 - 50.3 % CERNER BJ Comment:Testing performed by : [facility], [address] [place], [place] [phone] Plt 106(L) 150 - 400 K/cumm CERNER BJ Comment:Testing performed by : [facility], [address] [place], [place] [phone] MPV 8.0 6.8 - 10.4 fL CERNER BJ Comment:Testing performed by : [facility], [address] [place], [place] [phone] RBC 4.25(L) 4.30 - 5.80 M/cumm CERNER BJ Comment:Testing performed by : [facility], [address] [place], [place] [phone] MCV 83.3 81.3 - 96.4 fL CERNER BJ Comment:Testing performed by : [facility], [address] [place], [place] [phone] MCH 27.5 27.1 - 33.3 pg CERNER BJ Comment:Testing performed by : [facility], [address] [place] [address] MCHC 33.0 32.3 - 35.7 g/dL CERNER BJ Comment:Testing performed by : [facility], [address] [place] [address] RDW CV 23.9(H) 11.1 - 14.9 % CERNER BJ Comment:Testing performed by : [facility], [address] [place] [address] NRBC abs 0.00 0.00 - 0.01 K/cumm CERNER BJ Comment:Testing performed by : [facility], [address] [place] [address] Blood 01/07/2025 8:05 AM CDT 01/07/2025 8:20 AM CDT Amilcar Sarabia MD LAB BLOOD ORDERABLES Final R esult Performing Organization Address City/State/[facility] Co de Phone Number CERNER [facility] Department [place] [address] * (ABNORMAL) Beta 2 microglobulin, serum (01/07/2025 [...] ORDERABLES Final R esult Performing Organization Address [facility] Co de Phone Number [facility] [place] [address] * (ABNORMAL) Differential, auto (12/10/2024 8:30 AM CYBER SECURITY) Pathologist [facility] Neutrophil abs 2.1 1.5 - 6.5 K/cumm Comment:Testing performed by : [facility], [address] [place] [phone] Lymphocyte abs 0.5(L) 0.8 - 3.3 K/cumm CERNER BJ Comment:Testing performed by : [facility], [address] [place] [phone] Monocyte abs 0.4 0.2 - 0.8 K/cumm CERNER BJ Comment:Testing performed by : [facility], [address] [place] [phone] Eosinophil abs 0.0 0.0 - 0.5 K/cumm CERNER BJ Comment:Testing performed by : [facility], [address] [place] [phone] Basophil abs 0.0 0.0 - 0.1 K/cumm CERNER BJ Comment:Testing performed by : [facility], [address] [place] [phone] Neutrophil pct 67.2 % CERNER BJ Comment: Interpretive Data Percent cell count reference ranges are not reported, since discordance with absolute values may lead to misinterpretation of CBC data. Current Interpretive Data was last revised on 2018. Testing performed by: [facility], [address] [place] [phone] Lymphocyte pct 17.3 % CERCAROLINA CERRATO Comment: Interpretive Data Percent cell count reference ranges are not reported, since discordance with absolute values may lead to misinterpretation of CBC data. Current Interpretive Data was last revised on 2018. Testing performed by: [facility], [address] [place] [phone] Monocyte pct 13.5 % CERNER BLOSSOM Comment: Interpretive Data Percent cell count reference ranges are not reported, since discordance with absolute values may lead to misinterpretation of CBC data. Current Interpretive Data was last revised on 2018. Testing performed by: [facility], [address] [place] [phone] Eosinophil pct 1.4 % CERCAROLINA CERRATO Comment: Interpretive Data Percent cell count reference ranges are not reported, since discordance with absolute values may lead to misinterpretation of CBC data. Current Interpretive Data was last revised on 2018. Testing performed by: [facility], [address] [place] [phone] Basophil pct 0.6 % CERCAROLINA CERRATO Comment: Interpretive Data Percent cell count reference ranges are not reported, since discordance with absolute values may lead to misinterpretation of CBC data. Current Interpretive Data was last revised on 2018. Testing performed by: [facility], [address] [place] [phone] Blood 12/10/2024 8:30 AM CYBER SECURITY 12/10/2024 8:37 AM CYBER SECURITY Amilcar Sarabia MD LAB BLOOD ORDERABLES Final R esult BEN CERRAT[facility] [place] [address] * (ABNORMAL) CBC with auto differential (12/10/2024 8:30 AM CYBER SECURITY) WBC 3.1(L) 3.8 - 9.9 K/cumm Comment:Testing performed by : [facility], [address] [place] [address] Hgb 10.4(L) 13.0 - 17.5 g/dL CERNER BJ Comment:Testing performed by : [facility], [address] [place] [address] Hct 32.7(L) 38.9 - 50.3 % CERNER BJ Comment:Testing performed by : [facility], [address] [place], [place] [phone] Plt 132(L) 150 - 400 K/cumm CERNER BJ Comment:Testing performed by : [facility], [address] [place] [address] MPV 8.2 6.8 - 10.4 fL CERNER BJ Comment:Testing performed by : [facility], [address] [place] [address] RBC 4.17(L) 4.30 - 5.80 M/cumm CERNER BJ Comment:Testing performed by : [facility], [address] [place] [address] MCV 78.3(L) 81.3 - 96.4 fL CERNER BJ Comment:Testing performed by : [facility], [address] [place] [address] MCH 25.0(L) 27.1 - 33.3 pg CERNER BJ Comment:Testing performed by : [facility], [address] [place] [address] MCHC 32.0(L) 32.3 - 35.7 g/dL CERNER [facility]H Comment:Testing performed by : [facility], [address] [place] [address] RDW CV 18.1(H) 11.1 - 14.9 % CERNER [facility] Comment:Testing performed by : [facility], [address] [place] [phone] NRBC abs 0.00 0.00 - 0.01 K/cumm BEN [facility] Comment:Testing performed by : [facility], [address] [place] [phone] Blood 12/10/2024 8:30 AM CYBER SECURITY 12/10/2024 8:37 AM CYBER SECURITY us Amilcar Sarabia MD LAB BLOOD ORDERABLES Final R esult Performing Organization Address City/[facility]/ZIP Co de Phone Number [facility] [place] [address] * (ABNORMAL) eGFR (12/10/2024 8:10 AM CYBER SECURITY) eGFR 41(L) >=60 mL/min/1. 73 m2 Comment: [...] last reviewed 2021. Blood 12/10/2024 8:10 AM CYBER SECURITY 12/10/2024 8:16 AM CYBER SECURITY us Amilcar Sarabia MD LAB BLOOD ORDERABLES Final R esult [facility] [place] [address] * Lactate dehydrogenase (LD) (12/10/2024 8:10 AM CYBER SECURITY) [facility] Lactate dehydrogenase (LDH) 186 100 - 250 Units/L Blood 12/10/2024 8:10 AM CYBER SECURITY 12/10/2024 8:16 AM CYBER SECURITY Amilcar Sarabia MD LAB BLOOD ORDERABLES Final R esult Performing Organization Address [facility] [place] [address] * (ABNORMAL) Beta 2 microglobulin, serum (12/10/2024 8:10 AM CYBER SECURITY) [facility] Beta 2 Microglobulin, Serum 4.40(H) 1.00 - 2.50 mg/L Comment: Interpretive Data The Tatyana Beta-2 microglobulin assay procedure was used. Results from different manufacturers or methods may not be comparable. Serial testing should be performed using the same method. Blood 12/10/2024 8:10 AM CYBER SECURITY 12/10/2024 8:45 AM CYBER SECURITY Amilcar Sarabia MD LAB BLOOD ORDERABLES Final R esult Performing Organization Address [facility] Co de Phone Number [facility] [place] [address] * (ABNORMAL) Comprehensive metabolic panel (12/10/2024 8:10 AM CYBER SECURITY) [facility] Sodium 141 135 - 145 mmol/L Potassium, pl 4.3 3.3 - 4.9 mmol/L [facility] Chloride 105 97 - 110 mmol/L [facility] CO2 28 22 - 32 mmol/L [facility] Anion gap 8 2 - 15 mmol/L [facility] BUN 33(H) 6 - 25 mg/dL [facility] Creatinine 1.71(H) 0.80 - 1.30 mg/dL [facility] Glucose 134 70 - 199 mg/dL [facility] Comment: Interpretive Data Fasting glucose >/= 126 [...] 2022. Calcium 9.9 8.5 - 10.3 mg/dL [facility] Bilirubin, total 0.7 0.1 - 1.2 mg/dL [facility] Protein, pl 7.5 6.5 - 8.5 g/dL [facility] Albumin 4.5 3.5 - 5.0 g/dL [facility] Alk phos 95 40 - 130 Units/L [facility] ALT 17 7 - 55 Units/L [facility] AST 28 10 - 50 Units/L [facility] Blood 12/10/2024 8:10 AM CYBER SECURITY 12/10/2024 8:16 AM CYBER SECURITY Amilcar Sarabia MD LAB BLOOD ORDERABLES Final R esult [facility] [place] [address] * (ABNORMAL) eGFR (11/26/2024 7:51 AM CYBER SECURITY) eGFR 44(L) >=60 mL/min/1. 73 m2 Comment: [...] last reviewed 2021. Blood 11/26/2024 7:51 AM CYBER SECURITY 11/26/2024 8:25 AM CYBER SECURITY us Jolie Iraheta NP LAB BLOOD ORDRuiz CHI Final Result [facility] 1 [facility] Department [place] [address] * (ABNORMAL) Differential, auto (11/26/2024 7:51 AM CYBER SECURITY) Neutrophil abs 1.8 1.5 - 6.5 K/cumm [...] revised on 2018. Blood 11/26/2024 7:51 AM CYBER SECURITY 11/26/2024 8:25 AM CYBER SECURITY Jolie Iraheta NP LAB BLOOD LAUREL CHI Final Result [facility] ([place]) 1 [facility] Department [place] [address] * (ABNORMAL) CBC with auto differential (11/26/2024 7:51 AM CYBER SECURITY) WBC 2.7(L) 3.8 - 9.9 K/cumm Hgb [...] [facility] ([place]) Blood 11/26/2024 7:51 AM CYBER SECURITY 11/26/2024 8:25 AM CYBER SECURITY Narrative [facility] ([place]) - 11/26/2024 8:28 AM CYBER SECURITY To be drawn prior to patient taking venetoclax. [facility] Natalia Iraheta LAB BLOOD ORDE RABLES Final Result BEN OLIVAS ([place]) 1 [facility] [place] [employer] [place] [address] * Uric acid (11/26/2024 7:51 AM CYBER SECURITY) Uric acid 3.6 3.0 - 8.0 mg/dL Blood 11/26/2024 7:51 AM CYBER SECURITY 11/26/2024 8:25 AM CYBER SECURITY Narrative [facility] ([place]) - 11/26/2024 8:47 AM CYBER SECURITY To be drawn prior to patient taking venetoclax. [facility] LAB BLOOD ORDE RABLES Final Result [facility]EN [facility] ([place]) 1 [facility] [place] [place] [address] * Phosphorus (11/26/2024 7:51 AM CYBER SECURITY) Phosphorus, pl 4.0 2.3 - 4.5 mg/dL Blood 11/26/2024 7:51 AM CYBER SECURITY 11/26/2024 8:25 AM CYBER SECURITY Narrative [facility] ([place]) - 11/26/2024 8:47 AM CYBER SECURITY To be drawn prior to patient taking venetoclax. Jolie Smithfer [employer] LAB BLOOD LAUREL CHI Final Result [facility] ([place]) 1 [facility] Department [place] [address] * (ABNORMAL) Comprehensive metabolic panel (11/26/2024 7:51 AM CYBER SECURITY) Sodium 139 135 - 145 mmol/L Potassium, pl 4.3 3.3 - 4.9 mmol/L [facility] ([place]) Chloride 103 97 - 110 mmol/L CERNER [...] [facility] ([place]) Blood 11/26/2024 7:51 AM CYBER SECURITY 11/26/2024 8:25 AM CYBER SECURITY Narrative [facility] ([place]) - 11/26/2024 8:47 AM CYBER SECURITY To be drawn prior to patient taking venetoclax. Jolie Iraheta LAB BLOOD ORDE RABMEAGAN Final Result [facility]EN [facility] ([place]) 1 [facility] Department [place] [address] * (ABNORMAL) eGFR (11/19/2024 10:21 AM CYBER SECURITY) eGFR 42(L) >=60 mL/min/1. 73 m2 Comment: [...] reviewed 2021. Blood 11/19/2024 10:2 1 AM CYBER SECURITY 11/19/2024 10:24 AM CYBER SECURITY Jolie Iraheta [employer] LAB BLOOD ORDE RABLES Final Result [facility] ([place]) 1 [facility] Department [place] [address] * (ABNORMAL) Differential, auto (11/19/2024 10:21 AM CYBER SECURITY) Neutrophil abs 2.2 1.5 - 6.5 K/cumm [...] on 2018. Blood 11/19/2024 10:2 1 AM CYBER SECURITY 11/19/2024 10:24 AM CYBER SECURITY Jolie Iraheta NP LAB BLOOD ORDRuiz CHI Final Result [facility] ([place]) 1 [facility] Department [place] [address] * (ABNORMAL) CBC with auto differential (11/19/2024 10:21 AM CYBER SECURITY) WBC 3.3(L) 3.8 - 9.9 K/cumm Hgb [...] [facility] ([place]) Blood 11/19/2024 10:2 1 AM CYBER SECURITY 11/19/2024 10:24 AM CYBER SECURITY Narrative [facility] ([place]) - 11/19/2024 10:27 AM CYBER SECURITY To be drawn prior to patient taking venetoclax. Jolie Iraheta LAB BLOOD ORDE RABLES Final Result Performing Organization Address City/[facility]/ZIP Co de Phone Number [facility] ([place]) 1 [facility] [place] [address] * Uric acid (11/19/2024 10:21 AM CYBER SECURITY) Pathologist [facility] Uric acid 3.7 3.0 - 8.0 mg/dL Blood 11/19/2024 10:2 1 AM CYBER SECURITY 11/19/2024 10:24 AM CYBER SECURITY Dain BENZCAROLINA OLIVAS ([place]) - 11/19/2024 10:43 AM CYBER SECURITY To be drawn prior to patient taking venetoclax. Jolie Iraheta LAB BLOOD ORDE RABMEAGAN Final Result Performing Organization Address [facility] Co de Phone Number [facility] ([place]) 1 [facility] [place] [address] * Phosphorus (11/19/2024 10:21 AM CYBER SECURITY) [facility] Phosphorus, pl 4.2 2.3 - 4.5 mg/dL Blood 11/19/2024 10:2 1 AM CYBER SECURITY 11/19/2024 10:24 AM CYBER SECURITY Dain [facility] ([place]) - 11/19/2024 10:43 AM CYBER SECURITY To be drawn prior to patient taking venetoclax. Jolie Natalia Iraheta LAB BLOOD ORDE RABMEAGAN Final Result [facility] ([place]) 1 [place] [address] * (ABNORMAL) Comprehensive metabolic panel (11/19/2024 10:21 AM CYBER SECURITY) [facility] Sodium 141 135 - 145 mmol/L Potassium, [...] [facility] ([place]) Blood 11/19/2024 10:2 1 AM CYBER SECURITY 11/19/2024 10:24 AM CYBER SECURITY Narrative [facility] ([place]) - 11/19/2024 10:43 AM CYBER SECURITY To be drawn prior to patient taking venetoclax. Jolie Iraheta NP LAB BLOOD ORDRuiz CHI Final Result [facility] ([place]) 1 [facility] [place] [address] * (ABNORMAL) eGFR (11/13/2024 8:21 AM CYBER SECURITY) eGFR 45(L) >=60 mL/min/1. 73 m2 Comment: [...] last reviewed 2021. Blood 11/13/2024 8:21 AM CYBER SECURITY 11/13/2024 8:25 AM CYBER SECURITY us Amilcar Sarabia MD LAB BLOOD ORDERABLES Final R esult [place] 1 [facility] [place] [place] [address] * Uric acid (11/13/2024 8:21 AM CYBER SECURITY) Uric acid 4.1 3.0 - 8.0 mg/dL Blood 11/13/2024 8:21 AM CYBER SECURITY 11/13/2024 8:25 AM CYBER SECURITY Narrative BEN AVERY) - 11/13/2024 8:57 AM CYBER SECURITY To be drawn prior to patient taking venetoclax. us Amilcar Sarabia MD LAB BLOOD ORDERABLES Final R esult Performing Organization Address City/[facility] Co de Phone Number BEN [facility]IV[facility] ([place]) 1 [facility] Department [place] [address] * Phosphorus (11/13/2024 8:21 AM CYBER SECURITY) Pathologist [facility] Phosphorus, pl 3.8 2.3 - 4.5 mg/dL Blood 11/13/2024 8:21 AM CYBER SECURITY 11/13/2024 8:25 AM CYBER SECURITY Narrative [facility] ([place]) - 11/13/2024 8:57 AM CYBER SECURITY To be drawn prior to patient taking venetoclax. us Amilcar Sarabia MD LAB BLOOD ORDERABLES Final R [facility] Performing Organization Address [facility] Co de Phone Number [facility]EN OLIV[facility] ([place]) 1 [facility] Department [place] [address] * (ABNORMAL) Comprehensive metabolic panel (11/13/2024 8:21 AM CYBER SECURITY) Pathologist [facility] Sodium 139 135 - 145 mmol/L Potassium, pl 4.5 3.3 - 4.9 mmol/L [facility] ([place]) Chloride 106 97 - 110 mmol/L [facility] ([place]) CO2 21(L) 22 - 32 mmol/L [facility] ([place]) Anion gap 12 2 - 15 mmol/L [facility] ([place]) BUN 30(H) 6 - 25 mg/dL [facility] ([place]) Creatinine 1.57(H) 0.80 - 1.30 mg/dL [facility] ([place]) Glucose 145 70 - 199 mg/dL [facility] ([place]) Comment: Interpretive Data Fasting glucose [...] Slightly Hemolyzed Specimen Blood 11/13/2024 8:21 AM CYBER SECURITY 11/13/2024 8:25 AM CYBER SECURITY Narrative [facility] ([place]) - 11/13/2024 8:57 AM CYBER SECURITY To be drawn prior to patient taking venetoclax. us Amilcar Sarabia MD LAB BLOOD ORDERABLES Final R esult [facility] ([place]) 1 [facility] Department of Laboratories [place], [place] [id number] * (ABNORMAL) eGFR (11/12/2024 3:30 PM CYBER SECURITY) eGFR 39(L) >=60 mL/min/1. 73 m2 Comment: [...] last reviewed 2021. Blood 11/12/2024 3:30 PM CYBER SECURITY 11/12/2024 3:30 PM CYBER SECURITY [facility] Natalia Pughselsyurist. [facility] LAB BLOOD ORDE RABLES Final Result Performing Organization Address [facility] Co de Phone Number [facility] [place] [address] * Uric acid (11/12/2024 3:30 PM CYBER SECURITY) Uric acid 4.0 3.0 - 8.0 mg/dL Blood 11/12/2024 3:30 PM CYBER SECURITY 11/12/2024 3:30 PM CYBER SECURITY Narrative [facility] 11/12/2024 3:50 PM CYBER SECURITY To be drawn 6-8 hours after venetoclax dose on day 1. [facility] Center[facility]olie Natalia Pughselsbryant LAB BLOOD ORDE RABLES Final Result Performing Organization Address [facility] Co de Phone Number [facility] [place] [place] [address] * Phosphorus (11/12/2024 3:30 PM CYBER SECURITY) Pathologist [facility] Phosphorus, pl 3.5 2.3 - 4.5 mg/dL Blood 11/12/2024 3:30 PM CYBER SECURITY 11/12/2024 3:30 PM CYBER SECURITY Narrative [facility] 11/12/2024 3:50 PM CYBER SECURITY To be drawn 6-8 hours after venetoclax dose on day 1. [facility] LAB BLOOD ORDE RABLES Final Result Performing Organization Address City/[facility]/ZIP Co de Phone Number [facility] [place] [address] * (ABNORMAL) Basic metabolic panel (11/12/2024 3:30 PM CYBER SECURITY) Pathologist [facility] Sodium 143 135 - 145 mmol/L Potassium, pl 4.1 3.3 - 4.9 mmol/L [facility] Chloride 109 97 - 110 mmol/L [facility] CO2 30 22 - 32 mmol/L [facility] Anion gap 4 2 - 15 mmol/L [facility] BUN 37(H) 6 - 25 mg/dL [facility] Creatinine 1.77(H) 0.80 - 1.30 mg/dL [facility] Glucose 120 70 - 199 mg/dL [facility] Comment: Interpretive Data Fasting glucose >/= 126 [...] 2022. Calcium 8.8 8.5 - 10.3 mg/dL [facility] Blood 11/12/2024 3:30 PM CYBER SECURITY 11/12/2024 3:30 PM CYBER SECURITY Narrative [facility] - 11/12/2024 3:50 PM CYBER SECURITY To be drawn 6-8 hours after venetoclax dose on day 1. Jolie Iraheta NP LAB BLOOD ORDRuiz CHI Final Result [facility] [place] [address] * (ABNORMAL) eGFR (11/12/2024 7:48 AM CYBER SECURITY) Pathologist [facility] eGFR 34(L) >=60 mL/min/1. 73 m2 Comment: [...] last reviewed 2021. Blood 11/12/2024 7:48 AM CYBER SECURITY 11/12/2024 8:04 AM CYBER SECURITY Jolie Iraheta TICKET MAKER LAB BLOOD LAUREL CHI Final Result [facility] Department of Laboratories [place], [place] [id number] * (ABNORMAL) Differential, auto (11/12/2024 7:48 AM CYBER SECURITY) Neutrophil abs 1.5 1.5 - 6.5 K/cumm Comment:Testing performed by : [facility], [address] [place] [phone] Lymphocyte abs 0.6(L) 0.8 - 3.3 K/cumm [facility] Comment:Testing performed by : [facility], [address] [place] [phone] Monocyte abs 0.3 0.2 - 0.8 K/cumm [facility] Comment:Testing performed by : [facility], [address] [place] [phone] Eosinophil abs 0.1 0.0 - 0.5 K/cumm [facility] Comment:Testing performed by : [facility], [address] [place] [phone] Basophil abs 0.0 0.0 - 0.1 K/cumm [facility] Comment:Testing performed by : [facility], [address] [place] [phone] Neutrophil pct 61.0 % [facility] Comment: Interpretive Data Percent cell count reference ranges are not reported, since discordance with absolute values may lead to misinterpretation of CBC data. Current Interpretive Data was last revised on 2018. Testing performed by: [facility], [address] [place] [phone] Lymphocyte pct 23.0 % [facility] Comment: Interpretive Data Percent cell count reference ranges are not reported, since discordance with absolute values may lead to misinterpretation of CBC data. Current Interpretive Data was last revised on 2018. Testing performed by: [facility], [address] [place] [phone] Monocyte pct 10.9 % [facility] Comment: Interpretive Data Percent cell count reference ranges are not reported, since discordance with absolute values may lead to misinterpretation of CBC data. Current Interpretive Data was last revised on 2018. Testing performed by: [facility], [address] [place] [phone] Eosinophil pct 4.2 % [facility] Comment: Interpretive Data Percent cell count reference ranges are not reported, since discordance with absolute values may lead to misinterpretation of CBC data. Current Interpretive Data was last revised on 2018. Testing performed by: [facility], [address] [place] [phone] Basophil pct 0.9 % [facility] Comment: Interpretive Data Percent cell count reference ranges are not reported, since discordance with absolute values may lead to misinterpretation of CBC data. Current Interpretive Data was last revised on 2018. Testing performed by: [facility], [address] [place] [phone] Blood 11/12/2024 7:48 AM CYBER SECURITY 11/12/2024 7:56 AM CYBER SECURITY Jolie Iraheta NP LAB BLOOD ORDE RABLES Final Result Performing Organization Address City/[facility]/ZIP Co de Phone Number [facility] Department [place] [address] * (ABNORMAL) Iron profile w/ IBC (11/12/2024 7:48 AM CYBER SECURITY) Pathologist [facility] Iron 27(L) 50 - 150 mcg/dL TIBC 407(H) 250 - 400 mcg/dL [facility] Transferrin saturation 7(L) 20 - 50 % [facility] Blood 11/12/2024 7:48 AM CYBER SECURITY 11/12/2024 8:04 AM CYBER SECURITY Amilcar Sarabia MD LAB BLOOD ORDERABLES Final R esult Performing Organization Address [facility] Co de Phone Number [facility] Department [place] [address] * (ABNORMAL) CBC with auto differential (11/12/2024 7:48 AM CYBER SECURITY) [facility] WBC 2.4(L) 3.8 - 9.9 K/cumm Comment:Testing performed by : [facility], [address] [place] [phone] Hgb 9.3(L) 13.0 - 17.5 g/dL [facility] Comment:Testing performed by : [facility], [address] [place] [phone] Hct 29.0(L) 38.9 - 50.3 % [facility] Comment:Testing performed by : [facility], [address] [place] [phone] Plt 112(L) 150 - 400 K/cumm [facility] Comment:Testing performed by : [facility], [address] [place] [phone] MPV 7.7 6.8 - 10.4 fL [facility] Comment:Testing performed by : [facility], [address] [place], [place] [phone] RBC 3.67(L) 4.30 - 5.80 M/cumm [facility] Comment:Testing performed by : [facility], [address] [place], [place] [phone] MCV 79.1(L) 81.3 - 96.4 fL [facility] Comment:Testing performed by : [facility], [address] [place], [place] [phone] MCH 25.3(L) 27.1 - 33.3 pg [facility] Comment:Testing performed by : [facility], [address] [place], [place] [phone] MCHC 31.9(L) 32.3 - 35.7 g/dL [facility] Comment:Testing performed by : [facility], [address] [place], [place] [phone] RDW CV 16.6(H) 11.1 - 14.9 % [facility] Comment:Testing performed by : [facility], [address] [place], [place] [phone] NRBC abs 0.00 0.00 - 0.01 K/cumm [facility] Comment:Testing performed by : [facility], [address] [place], [place] [phone] Blood 11/12/2024 7:48 AM CYBER SECURITY 11/12/2024 7:56 AM CYBER SECURITY Narrative [facility] - 11/12/2024 8:02 AM CYBER SECURITY To be drawn prior to patient taking venetoclax. Jolie Iraheta NP LAB BLOOD LAUREL CHI Final Result [facility] Department of Laboratories [place], [place] [id number] * Uric acid (11/12/2024 7:48 AM CYBER SECURITY) Uric acid 4.2 3.0 - 8.0 mg/dL Blood 11/12/2024 7:48 AM CYBER SECURITY 11/12/2024 8:04 AM CYBER SECURITY Narrative [facility] 11/12/2024 8:30 AM CYBER SECURITY To be drawn 6-8 hours after venetoclax dose on day 1. Jolie Iraheta LAB BLOOD ORDE RABMEAGAN Final Result Performing Organization Address City/[facility]/ZIP Co de Phone Number [facility] [place] [address] * Phosphorus (11/12/2024 7:48 AM CYBER SECURITY) [facility] Phosphorus, pl 4.4 2.3 - 4.5 mg/dL Blood 11/12/2024 7:48 AM CYBER SECURITY 11/12/2024 8:04 AM CYBER SECURITY Narrative [facility] 11/12/2024 8:30 AM CYBER SECURITY To be drawn 6-8 hours after venetoclax dose on day 1. Jolie Smithlsflor LAB BLOOD ORDE RABLES Final Result Performing Organization Address [facility] Co de Phone Number [facility] [place] [address] * Lactate dehydrogenase (LD) (11/12/2024 7:48 AM CYBER SECURITY) [facility] Lactate dehydrogenase (LDH) 176 100 - 250 Units/L Blood 11/12/2024 7:48 AM CYBER SECURITY 11/12/2024 8:04 AM CYBER SECURITY Narrative [facility] 11/12/2024 8:30 AM CYBER SECURITY To be drawn prior to patient taking venetoclax. Jolie Natalia [facility] LAB BLOOD ORDE RABLES Final Result Performing Organization Address City/[facility]/ZIP Co de Phone Number [facility] [place] [address] * (ABNORMAL) Ferritin (11/12/2024 7:48 AM CYBER SECURITY) Pathologist [facility] Ferritin 23(L) 30 - 400 ng/mL Blood 11/12/2024 7:48 AM CYBER SECURITY 11/12/2024 8:04 AM CYBER SECURITY Amilcar Sarabia MD LAB BLOOD ORDERABLES Final R esult [facility] Department [place] [address] * (ABNORMAL) Comprehensive metabolic panel (11/12/2024 7:48 AM CYBER SECURITY) Pathologist [facility] Sodium 144 135 - 145 mmol/L Potassium, pl 5.1(H) 3.3 - 4.9 mmol/L [facility] Chloride 109 97 - 110 mmol/L [facility] CO2 29 22 - 32 mmol/L [facility] Anion gap 6 2 - 15 mmol/L [facility] BUN 40(H) 6 - 25 mg/dL [facility] Creatinine 2.01(H) 0.80 - 1.30 mg/dL [facility] Glucose 112 70 - 199 mg/dL [facility] Comment: Interpretive Data Fasting glucose >/= 126 [...] 2022. Calcium 9.5 8.5 - 10.3 mg/dL [facility] Bilirubin, total 0.3 0.1 - 1.2 mg/dL [facility] Protein, pl 6.8 6.5 - 8.5 g/dL [facility] Albumin 4.0 3.5 - 5.0 g/dL [facility] Alk phos 103 40 - 130 Units/L [facility] ALT 24 7 - 55 Units/L [facility] AST 33 10 - 50 Units/L [facility] Blood 11/12/2024 7:48 AM CYBER SECURITY 11/12/2024 8:04 AM CYBER SECURITY Narrative [facility] - 11/12/2024 8:30 AM CYBER SECURITY To be drawn prior to patient taking venetoclax. us Jolie Iraheta NP LAB BLOOD ORDE RABLES Final Result [facility] Department [place] [address] * (ABNORMAL) eGFR (11/06/2024 9:10 AM CYBER SECURITY) eGFR 41(L) >=60 mL/min/1. 73 m2 Comment: [...] last reviewed 2021. Blood 11/06/2024 9:10 AM CYBER SECURITY 11/06/2024 9:37 AM CYBER SECURITY us Amilcar Sarabia MD LAB BLOOD ORDERABLES Final R esult [facility] ([place]) 1 [facility] Department [place] [address] * (ABNORMAL) Differential, auto (11/06/2024 9:10 AM CYBER SECURITY) Neutrophil abs 1.4(L) 1.5 - 6.5 K/cumm Imm gran abs 0.0 0.0 - 0.1 K/cumm [facility] ([place]) Lymphocyte abs 0.6(L) 0.8 - 3.3 K/cumm [facility] ([place]) Monocyte abs 0.2 0.2 - 0.8 K/cumm [facility] ([place]) Eosinophil abs 0.1 0.0 - 0.5 K/cumm [facility] ([place]) Basophil abs 0.0 0.0 - 0.1 K/cumm [facility] ([place]) Neutrophil pct 61.3 % [facility] ([place]) Comment: Interpretive Data Percent cell count reference [...] revised on 2018. Blood 11/06/2024 9:10 AM CYBER SECURITY 11/06/2024 9:37 AM CYBER SECURITY Amilcar Sarabia MD LAB BLOOD ORDERABLES Final R esult [facility] ([place]) 1 [facility] Department [place] [address] * (ABNORMAL) CBC with auto differential (11/06/2024 9:10 AM CYBER SECURITY) WBC 2.4(L) 3.8 - 9.9 K/cumm Hgb [...] [facility] ([place]) Blood 11/06/2024 9:10 AM CYBER SECURITY 11/06/2024 9:37 AM CYBER SECURITY Narrative [facility] ([place]) - 11/06/2024 9:41 AM CYBER SECURITY To be drawn prior to patient taking venetoclax. Amilcar Sarabia MD LAB BLOOD ORDERABLES Final R esult Performing Organization Address [facility] Co de Phone Number BEN POLLACKN) 1 [facility] [place] [place] [address] * Uric acid (11/06/2024 9:10 AM CYBER SECURITY) Uric acid 3.5 3.0 - 8.0 mg/dL Blood 11/06/2024 9:10 AM CYBER SECURITY 11/06/2024 9:37 AM CYBER SECURITY Narrative [facility] ([place]) - 11/06/2024 10:06 AM CYBER SECURITY To be drawn 6-8 hours after venetoclax dose on day 1. Amilcar Sarabia MD LAB BLOOD ORDERABLES Final R esult Performing Organization Address [facility] Co de Phone Number [facility] ([place]) 1 [facility] [place] [employer] [place] [address] * Phosphorus (11/06/2024 9:10 AM CYBER SECURITY) Phosphorus, pl 3.9 2.3 - 4.5 mg/dL Blood 11/06/2024 9:10 AM CYBER SECURITY 11/06/2024 9:37 AM CYBER SECURITY Narrative [facility] ([place]) - 11/06/2024 10:06 AM CYBER SECURITY To be drawn 6-8 hours after venetoclax dose on day 1. Amilcar Sarabia MD LAB BLOOD ORDERABLES Final R esult Performing Organization Address City/[facility] Co de Phone Number [facility] ([place]) 1 [facility] [place] [place] [address] * Lactate dehydrogenase (LD) (11/06/2024 9:10 AM CYBER SECURITY) Lactate dehydrogenase (LDH) 186 100 - 250 Units/L Blood 11/06/2024 9:10 AM CYBER SECURITY 11/06/2024 9:37 AM CYBER SECURITY Narrative [facility] ([place]) - 11/06/2024 10:08 AM CYBER SECURITY To be drawn prior to patient taking venetoclax. us Amilcar Sarabia MD LAB BLOOD ORDERABLES Final R esult Performing Organization Address City/[facility]/ZIP Co de Phone Number [facility] OLIVAS ([place]) 1 [facility] [place] [address] * (ABNORMAL) Beta 2 microglobulin, serum (11/06/2024 9:10 AM CYBER SECURITY) Pathologist [facility] Beta 2 Microglobulin, Serum 5.61(H) 1.21 - 2.70 mcg/mL [place] [facility] Comment: Test Performed by: [facility] [address] [place] [id number] Rn Lactation Consultant: Sammy Jimenez Ph.D.; CLIA# [id number] Blood 11/06/2024 9:10 AM CYBER SECURITY 11/06/2024 9:37 AM CYBER SECURITY us Amilcar Sarabia MD LAB BLOOD ORDERABLES Final R esult Performing Organization Address City/[facility]/ZIP Co de Phone Number [facility] OLIVAS ([place]) 1 [facility] [place] [place] [address] [place] [facility] * (ABNORMAL) Comprehensive metabolic panel (11/06/2024 9:10 AM CYBER SECURITY) [facility] Sodium 143 135 - 145 mmol/L Potassium, pl 4.3 3.3 - 4.9 mmol/L [facility] ([place]) Chloride 107 97 - 110 mmol/L [facility] ([place]) CO2 27 22 - 32 mmol/L [facility] ([place]) Anion gap 10 2 - 15 mmol/L [facility] ([place]) BUN 26(H) 6 - 25 mg/dL [facility] ([place]) Creatinine 1.69(H) 0.80 - 1.30 mg/dL [facility] ([place]) Glucose 120 70 - 199 mg/dL [facility] ([place]) Comment: Interpretive Data Fasting glucose [...] [facility] ([place]) Blood 11/06/2024 9:10 AM CYBER SECURITY 11/06/2024 9:37 AM CYBER SECURITY Narrative [facility] ([place]) - 11/06/2024 10:06 AM CYBER SECURITY To be drawn prior to patient taking venetoclax. us Amilcar Sarabia MD LAB BLOOD ORDERABLES Final R esult [facility] ([place]) 1 [facility] Department [place] [address] * (ABNORMAL) eGFR (11/05/2024 2:43 PM CYBER SECURITY) eGFR 37(L) >=60 mL/min/1. 73 m2 Comment: [...] was last reviewed 2021. Testing performed by: [address] [address] Blood 11/05/2024 2:43 PM CYBER SECURITY 11/05/2024 7:16 PM CYBER SECURITY Jolie Iraheta LAB BLOOD ORDE RABLES Final Result Performing Organization Address City/[facility]/ZIP Co de Phone Number [facility]EN OLIVAS ([place]) 1 [facility] [place] [place] [address] * Uric acid (11/05/2024 2:43 PM CYBER SECURITY) Uric acid 3.6 3.0 - 8.0 mg/dL Comment:Testing performed by : [address] [address] Blood 11/05/2024 2:43 PM CYBER SECURITY 11/05/2024 7:05 PM CYBER SECURITY Narrative [facility]EN LOIVAS ([place]ICE) - 11/05/2024 7:38 PM CYBER SECURITY 6-8 hours post venetoclax dose. Jolie Natalia Iraheta TICKET MAKER LAB BLOOD ORDE RABLES Final Result [facility] OLIVAS ([place]) 1 [facility] [employer] [place], [place] [id number] * Phosphorus (11/05/2024 2:43 PM CYBER SECURITY) Phosphorus, pl 4.0 2.3 - 4.5 mg/dL Comment:Testing performed by : [address], [address] Blood 11/05/2024 2:43 PM CYBER SECURITY 11/05/2024 7:05 PM CYBER SECURITY Narrative [facility] ([place]) - 11/05/2024 7:38 PM CYBER SECURITY 6-8 hours post venetoclax dose. Jolie Iraheta NP LAB BLOOD LAUREL CHI Final Result [facility] ([place]) 1 [facility] Department [place] [address] * (ABNORMAL) Basic metabolic panel (11/05/2024 2:43 PM CYBER SECURITY) Sodium 142 135 - 145 mmol/L Comment:Testing performed by : [address], [address] Potassium, pl 4.2 3.3 - 4.9 mmol/L [facility] ([place]) Comment:Testing performed by : [address], [address] Chloride 106 97 - 110 mmol/L [facility] ([place]) Comment:Testing performed by : [address] [address] CO2 26 22 - 32 mmol/L [facility] ([place]) Comment:Testing performed by : [address], [address] Anion gap 10 2 - 15 mmol/L [facility] ([place]) Comment:Testing performed by : [address], [address] BUN 30(H) 6 - 25 mg/dL [facility] ([place]) Comment:Testing performed by : [address], [address] Creatinine 1.86(H) 0.80 - 1.30 mg/dL [facility] ([place]) Comment:Testing performed by : [address], [address] Glucose 111 70 - 199 mg/dL TUYETNER [...] was last revised 2022. Testing performed by: [facility], [address] [place] [address]., [address] Calcium 9.2 8.5 - 10.3 mg/dL BEN AVERY) Comment:Testing performed by : [facility], [address] [place] [address]., [address] Blood 11/05/2024 2:43 PM CYBER SECURITY 11/05/2024 7:05 PM CYBER SECURITY Narrative BEN AVERY) - 11/05/2024 7:38 PM CYBER SECURITY 6-8 hours post venetoclax dose. Jolie Iraheta NP LAB BLOOD ORDRuiz CHI Final Result BEN AVERY) 1 [facility] Department of Laboratories [place], [place] [id number] * (ABNORMAL) eGFR (11/05/2024 8:24 AM CYBER SECURITY) eGFR 39(L) >=60 mL/min/1. 73 m2 Comment: [...] last reviewed 2021. Blood 11/05/2024 8:24 AM CYBER SECURITY 11/05/2024 8:28 AM CYBER SECURITY Amilcar Sarabia MD LAB BLOOD ORDERABLES Final R esult [facility] [place] [address] * (ABNORMAL) Differential, auto (11/05/2024 8:24 AM CYBER SECURITY) Neutrophil abs 1.4(L) 1.5 - 6.5 K/cumm Comment:Testing performed by : [facility], [address] [place] [phone] Lymphocyte abs 0.6(L) 0.8 - 3.3 K/cumm [facility] Comment:Testing performed by : [facility], [address] [place] [phone] Monocyte abs 0.2 0.2 - 0.8 K/cumm CERNER [facility] Comment:Testing performed by : [facility], [address] [place] [phone] Eosinophil abs 0.1 0.0 - 0.5 K/cumm CERNER [facility]J Comment:Testing performed by : [facility], [address] [place] [phone] Basophil abs 0.0 0.0 - 0.1 K/cumm [facility]ER [facility] Comment:Testing performed by : [facility], [address] [place] [phone] Neutrophil pct 60.1 % [facility] Comment: Interpretive Data Percent cell count reference ranges are not reported, since discordance with absolute values may lead to misinterpretation of CBC data. Current Interpretive Data was last revised on 2018. Testing performed by: [facility], [address] [place] [phone] Lymphocyte pct 26.6 % [facility]ER[facility]OLINA [facility] Comment: Interpretive Data Percent cell count reference ranges are not reported, since discordance with absolute values may lead to misinterpretation of CBC data. Current Interpretive Data was last revised on 2018. Testing performed by: [facility], [address] [place] [phone] Monocyte pct 7.8 % CERCAROLINA CERRATO Comment: Interpretive Data Percent cell count reference ranges are not reported, since discordance with absolute values may lead to misinterpretation of CBC data. Current Interpretive Data was last revised on 2018. Testing performed by: [facility], [address] [place] [phone] Eosinophil pct 4.5 % CERCAROLINA CERRATO Comment: Interpretive Data Percent cell count reference ranges are not reported, since discordance with absolute values may lead to misinterpretation of CBC data. Current Interpretive Data was last revised on 2018. Testing performed by: [facility], [address] [place] [phone] Basophil pct 1.0 % CERCAROLINA CERRATO Comment: Interpretive Data Percent cell count reference ranges are not reported, since discordance with absolute values may lead to misinterpretation of CBC data. Current Interpretive Data was last revised on 2018. Testing performed by: [facility], [address] [place] [phone] Blood 11/05/2024 8:24 AM CYBER SECURITY 11/05/2024 8:27 AM CYBER SECURITY us Amilcar Sarabia MD LAB BLOOD ORDERABLES Final R esult BEN CERRATO [facility] [place] [address] * (ABNORMAL) CBC with auto differential (11/05/2024 8:24 AM CYBER SECURITY) WBC 2.3(L) 3.8 - 9.9 K/cumm Comment:Testing performed by : [facility], [address] [place], [place] [phone] Hgb 9.0(L) 13.0 - 17.5 g/dL [facility] Comment:Testing performed by : [facility], [address] [place], [place] [phone] Hct 28.7(L) 38.9 - 50.3 % C[facility]ER [facility]J Comment:Testing performed by : [facility], [address] [place], [place] [phone] Plt 77(L) 150 - 400 K/cumm [facility]ER [facility] Comment:Testing performed by : [facility], [address] [place], [place] [phone] MPV 7.6 6.8 - 10.4 fL CERNER BJ Comment:Testing performed by : [facility], [address] [place], [place] [phone] RBC 3.61(L) 4.30 - 5.80 M/cumm CERNER BJ Comment:Testing performed by : [facility], [address] [place], [place] [phone] MCV 79.4(L) 81.3 - 96.4 fL CERNER BJ Comment:Testing performed by : [facility], [address] [place], [place] [phone] MCH 24.9(L) 27.1 - 33.3 pg CERNER BJ Comment:Testing performed by : [facility], [address] [place], [place] [phone] MCHC 31.3(L) 32.3 - 35.7 g/dL CERNER BJ Comment:Testing performed by : [facility], [address] [place] [address] RDW CV 16.3(H) 11.1 - 14.9 % CERNER BJ Comment:Testing performed by : [facility], [address] [place], [place] [phone] NRBC abs 0.00 0.00 - 0.01 K/cumm CERNER BJ Comment:Testing performed by : [facility], [address] [place] [address] [place] [phone] Blood 11/05/2024 8:24 AM CYBER SECURITY 11/05/2024 8:27 AM CYBER SECURITY Narrative [facility] 11/05/2024 8:35 AM CYBER SECURITY To be drawn prior to patient taking venetoclax. Amilcar Sarabia MD LAB BLOOD ORDERABLES Final R esult Performing Organization Address City/[facility]/ZIP Co de Phone Number [facility] [place] [place] [address] * Uric acid (11/05/2024 8:24 AM CYBER SECURITY) Uric acid 3.3 3.0 - 8.0 mg/dL Blood 11/05/2024 8:24 AM CYBER SECURITY 11/05/2024 8:28 AM CYBER SECURITY Narrative [facility] 11/05/2024 9:06 AM CYBER SECURITY To be drawn prior to patient taking venetoclax. Amilcar Sarabia MD LAB BLOOD ORDERABLES Final R esult Performing Organization Address [facility] [place] [address] * Phosphorus (11/05/2024 8:24 AM CYBER SECURITY) Phosphorus, pl 3.9 2.3 - 4.5 mg/dL Blood 11/05/2024 8:24 AM CYBER SECURITY 11/05/2024 8:28 AM CYBER SECURITY Narrative [facility] 11/05/2024 9:06 AM CYBER SECURITY To be drawn prior to patient taking venetoclax. Amilcar Sarabia MD LAB BLOOD ORDERABLES Final R esult Performing Organization Address City/[facility]/[place] [address] * Lactate dehydrogenase (LD) (11/05/2024 8:24 AM CYBER SECURITY) Lactate dehydrogenase (LDH) 186 100 - 250 Units/L Blood 11/05/2024 8:24 AM CYBER SECURITY 11/05/2024 8:28 AM CYBER SECURITY Narrative [facility] - 11/05/2024 9:06 AM CYBER SECURITY To be drawn prior to patient taking venetoclax. us Amilcar Sarabia MD LAB BLOOD ORDERABLES Final R esult [facility] [place] [address] * (ABNORMAL) Comprehensive metabolic panel (11/05/2024 8:24 AM CYBER SECURITY) Pathologist [facility] Sodium 141 135 - 145 mmol/L Potassium, pl 4.1 3.3 - 4.9 mmol/L [facility] Chloride 108 97 - 110 mmol/L [facility] CO2 28 22 - 32 mmol/L [facility] Anion gap 5 2 - 15 mmol/L [facility] BUN 29(H) 6 - 25 mg/dL [facility] Creatinine 1.78(H) 0.80 - 1.30 mg/dL [facility] Glucose 109 70 - 199 mg/dL [facility] Comment: Interpretive Data Fasting glucose >/= 126 [...] 2022. Calcium 9.2 8.5 - 10.3 mg/dL [facility] Bilirubin, total 0.5 0.1 - 1.2 mg/dL [facility] Protein, pl 6.5 6.5 - 8.5 g/dL [facility] Albumin 3.9 3.5 - 5.0 g/dL [facility] Alk phos 92 40 - 130 Units/L CERNER [facility] ALT 22 7 - 55 Units/L [facility] AST 30 10 - 50 Units/L [facility] Blood 11/05/2024 8:24 AM CYBER SECURITY 11/05/2024 8:28 AM CYBER SECURITY Narrative [facility] - 11/05/2024 9:06 AM CYBER SECURITY To be drawn prior to patient taking venetoclax. us Amilcar Sarabia MD LAB BLOOD ORDERABLES Final R esult [facility] [place] [address] * CT chest abdomen pelvis with contrast (11/05/2024 7:50 AM CYBER SECURITY) Anatomical Region Laterality Modality Body N/A Computed Tomogra phy 11/05/2024 9:42 AM CYBER SECURITY Impressions 11/05/2024 12:18 PM CYBER SECURITY 1. Interval slight decrease in size of [...] Ronel Matute M.D. Narrative 11/05/2024 12:18 PM CYBER SECURITY EXAMINATION: Computed tomography of the chest, abdomen [...] * (ABNORMAL) Differential, auto (10/29/2024 8:07 AM CYBER SECURITY) Neutrophil abs 2.7 1.5 - 6.5 K/cumm Comment:Testing performed by : [facility], [address] [place] [phone] Lymphocyte abs 0.5(L) 0.8 - 3.3 K/cumm CERNER BJ Comment:Testing performed by : [facility], [address] [place] [phone] Monocyte abs 0.2 0.2 - 0.8 K/cumm CERNER BJ Comment:Testing performed by : [facility], [address] [place] [phone] Eosinophil abs 0.1 0.0 - 0.5 K/cumm CERNER BJ Comment:Testing performed by : [facility], [address] [place] [phone] Basophil abs 0.0 0.0 - 0.1 K/cumm CERNER [facility] Comment:Testing performed by : [facility], [address] [place] [phone] Neutrophil pct 76.3 % CERNER [facility] Comment: Interpretive Data Percent cell count reference ranges are not reported, since discordance with absolute values may lead to misinterpretation of CBC data. Current Interpretive Data was last revised on 2018. Testing performed by: [facility], [address] [place] [phone] Lymphocyte pct 15.2 % CERNER [facility] Comment: Interpretive Data Percent cell count reference ranges are not reported, since discordance with absolute values may lead to misinterpretation of CBC data. Current Interpretive Data was last revised on 2018. Testing performed by: [facility], [address] [place] [phone] Monocyte pct 5.6 % CERNER [facility] Comment: Interpretive Data Percent cell count reference ranges are not reported, since discordance with absolute values may lead to misinterpretation of CBC data. Current Interpretive Data was last revised on 2018. Testing performed by: [facility], [address] [place] [phone] Eosinophil pct 1.9 % CERNER [facility] Comment: Interpretive Data Percent cell count reference ranges are not reported, since discordance with absolute values may lead to misinterpretation of CBC data. Current Interpretive Data was last revised on 2018. Testing performed by: [facility], [address] [place] [phone] Basophil pct 1.0 % CERNER [facility] Comment: Interpretive Data Percent cell count reference ranges are not reported, since discordance with absolute values may lead to misinterpretation of CBC data. Current Interpretive Data was last revised on 2018. Testing performed by: [facility], [address] [place] [phone] Blood 10/29/2024 8:07 AM CYBER SECURITY 10/29/2024 8:10 AM CYBER SECURITY Amilcar Sarabia MD LAB BLOOD ORDERABLES Final R esult [facility]EN [facility] [place] [address] * (ABNORMAL) CBC with auto differential (10/29/2024 8:07 AM CYBER SECURITY) WBC 3.5(L) 3.8 - 9.9 K/cumm Comment:Testing performed by : [facility], [address] [place] [address] Hgb 8.7(L) 13.0 - 17.5 g/dL BEN CERRATO Comment:Testing performed by : [facility], [address] [place] [address] Hct 27.9(L) 38.9 - 50.3 % BEN CERRATO Comment:Testing performed by : [facility], [address] [place] [address] Plt 83(L) 150 - 400 K/cumm BEN CERRATO Comment:Testing performed by : [facility], [address] [place] [address] MPV 7.3 6.8 - 10.4 fL BEN CERRATO Comment:Testing performed by : [facility], [address] [place] [address] RBC 3.49(L) 4.30 - 5.80 M/cumm BEN CERRATO Comment:Testing performed by : [facility], [address] [place] [address] MCV 80.1(L) 81.3 - 96.4 fL CERCAROLINA BJ Comment:Testing performed by : [facility], [address] [place] [address] MCH 25.1(L) 27.1 - 33.3 pg CERCAROLINA CERRATO Comment:Testing performed by : [facility], [address] [place] [address] MCHC 31.3(L) 32.3 - 35.7 g/dL BEN CERRATO Comment:Testing performed by : [facility], [address] [place] [phone] RDW CV 16.3(H) 11.1 - 14.9 % BEN [facility] Comment:Testing performed by : [facility], [address] [place] [phone] NRBC abs 0.00 0.00 - 0.01 K/cumm BEN [facility] Comment:Testing performed by : [facility], [address] [place] [phone] Blood 10/29/2024 8:07 AM CYBER SECURITY 10/29/2024 8:10 AM CYBER SECURITY Amilcar Sarabia MD LAB BLOOD ORDERABLES Final R esult [facility] [place] [address] * (ABNORMAL) eGFR (10/22/2024 8:20 AM CYBER SECURITY) eGFR 35(L) >=60 mL/min/1. 73 m2 Comment: [...] last reviewed 2021. Blood 10/22/2024 8:20 AM CYBER SECURITY 10/22/2024 8:30 AM CYBER SECURITY us Cas Taylor MD LAB BLOOD ORDERABLES Fin al Result [facility] Department [place] [address] * Differential, auto (10/22/2024 8:20 AM CYBER SECURITY) Neutrophil abs 2.2 1.5 - 6.5 K/cumm Comment:Testing performed by : [facility], [address] [place] [phone] Lymphocyte abs 1.0 0.8 - 3.3 K/cumm CERNER BJ Comment:Testing performed by : [facility], [address] [place] [phone] Monocyte abs 0.2 0.2 - 0.8 K/cumm CERNER BJ Comment:Testing performed by : [facility], [address] [place] [phone] Eosinophil abs 0.1 0.0 - 0.5 K/cumm CERNER BJ Comment:Testing performed by : [facility], [address] [place] [phone] Basophil abs 0.0 0.0 - 0.1 K/cumm CERNER BJ Comment:Testing performed by : [facility], [address] [place] [phone] Neutrophil pct 62.3 % CERNER BJ Comment: Interpretive Data Percent cell count reference ranges are not reported, since discordance with absolute values may lead to misinterpretation of CBC data. Current Interpretive Data was last revised on 2018. Testing performed by: [facility], [address] [place] [phone] Lymphocyte pct 29.1 % CERNER BJ Comment: Interpretive Data Percent cell count reference ranges are not reported, since discordance with absolute values may lead to misinterpretation of CBC data. Current Interpretive Data was last revised on 2018. Testing performed by: [facility], [address] [place] [phone] Monocyte pct 5.7 % BEN CERRATO Comment: Interpretive Data Percent cell count reference ranges are not reported, since discordance with absolute values may lead to misinterpretation of CBC data. Current Interpretive Data was last revised on 2018. Testing performed by: [facility], [address] [place] [phone] Eosinophil pct 2.2 % BEN CERRATO Comment: Interpretive Data Percent cell count reference ranges are not reported, since discordance with absolute values may lead to misinterpretation of CBC data. Current Interpretive Data was last revised on 2018. Testing performed by: [facility], [address] [place], [place] [phone] Basophil pct 0.7 % BEN CERRATO Comment: Interpretive Data Percent cell count reference ranges are not reported, since discordance with absolute values may lead to misinterpretation of CBC data. Current Interpretive Data was last revised on 2018. Testing performed by: [facility], [address] [place] [phone] Blood 10/22/2024 8:20 AM CYBER SECURITY 10/22/2024 8:30 AM CYBER SECURITY Amilcar Sarabia MD LAB BLOOD ORDERABLES Final R esult [facility] Department [place] [address] * (ABNORMAL) CBC with auto differential (10/22/2024 8:20 AM CYBER SECURITY) WBC 3.5(L) 3.8 - 9.9 K/cumm Comment:Testing performed by : [facility], [address] [place] [phone] Hgb 8.6(L) 13.0 - 17.5 g/dL BEN CERRATO Comment:Testing performed by : [facility], [address] [place] [address] Hct 27.6(L) 38.9 - 50.3 % CERCAROLINA BJ Comment:Testing performed by : [facility], [address] [place], [place] [phone] Plt 89(L) 150 - 400 K/cumm CERCAROLINA BJ Comment:Testing performed by : [facility], [address] [place], [place] [phone] MPV 7.8 6.8 - 10.4 fL BEN CERRATO Comment:Testing performed by : [facility], [address] [place], [place] [phone] RBC 3.34(L) 4.30 - 5.80 M/cumm BEN BJ Comment:Testing performed by : [facility], [address] [place], [place] [phone] MCV 82.7 81.3 - 96.4 fL BEN CERRATO Comment:Testing performed by : [facility], [address] [place], [place] [phone] MCH 25.8(L) 27.1 - 33.3 pg CERCAROLINA CERRATO Comment:Testing performed by : [facility], [address] [place], [place] [phone] MCHC 31.1(L) 32.3 - 35.7 g/dL BEN CERRATO Comment:Testing performed by : [facility], [address] [place], [place] [phone] RDW CV 17.2(H) 11.1 - 14.9 % BEN CERRATO Comment:Testing performed by : [facility], [address] [place], [place] [phone] NRBC abs 0.00 0.00 - 0.01 K/cumm BEN [facility] Comment:Testing performed by : [facility], [address] [place], [place] [phone] Blood 10/22/2024 8:20 AM CYBER SECURITY 10/22/2024 8:30 AM CYBER SECURITY Amilcar Sarabia MD LAB BLOOD ORDERABLES Final R esult [facility] Department [place] [address] * (ABNORMAL) Comprehensive metabolic panel (10/22/2024 8:20 AM CYBER SECURITY) Sodium 146(H) 135 - 145 mmol/L Potassium, pl 4.3 3.3 - 4.9 mmol/L [facility] Chloride 113(H) 97 - 110 mmol/L CERNER [facility] CO2 28 22 - 32 mmol/L [facility] Anion gap 5 2 - 15 mmol/L [facility] BUN 31(H) 6 - 25 mg/dL CERNER [facility] Creatinine 1.94(H) 0.80 - 1.30 mg/dL CERNER [facility] Glucose 114 70 - 199 mg/dL [facility] Comment: Interpretive Data Fasting glucose >/= 126 [...] 2022. Calcium 9.1 8.5 - 10.3 mg/dL [facility] Bilirubin, total 0.3 0.1 - 1.2 mg/dL [facility] Protein, pl 6.2(L) 6.5 - 8.5 g/dL [facility] Albumin 3.7 3.5 - 5.0 g/dL [facility] Alk phos 116 40 - 130 Units/L CERNER [facility] ALT 75(H) 7 - 55 Units/L CERNER BJ AST 86(H) 10 - 50 Units/L [facility] Blood 10/22/2024 8:20 AM CYBER SECURITY 10/22/2024 8:30 AM CYBER SECURITY Cas Taylor MD LAB BLOOD ORDERABLES Fin al Result [facility] Department [place] [address] * (ABNORMAL) eGFR (10/16/2024 4:56 PM CYBER SECURITY) eGFR 29(L) >=60 mL/min/1. 73 m2 Comment: [...] last reviewed 2021. Blood 10/16/2024 4:56 PM CYBER SECURITY 10/16/2024 5:44 PM CYBER SECURITY us Amilcar Sarabia MD LAB BLOOD ORDERABLES Final R esult Performing Organization Address [facility] Co de Phone Number [facility] Department [place] [address] * Uric acid (10/16/2024 4:56 PM CYBER SECURITY) Uric acid 5.9 3.0 - 8.0 mg/dL Blood 10/16/2024 4:56 PM CYBER SECURITY 10/16/2024 5:44 PM CYBER SECURITY Narrative BEN [facility] - 10/16/2024 6:36 PM CYBER SECURITY To be drawn at the end of obina infusion us Amilcar Sarabia MD LAB BLOOD ORDERABLES Final R esult [facility] Department [place] [address] * (ABNORMAL) Basic metabolic panel (10/16/2024 4:56 PM CYBER SECURITY) Pathologist [facility] Sodium 143 135 - 145 mmol/L Potassium, pl 4.7 3.3 - 4.9 mmol/L [facility] Chloride 107 97 - 110 mmol/L [facility] CO2 24 22 - 32 mmol/L [facility] Anion gap 12 2 - 15 mmol/L [facility] BUN 41(H) 6 - 25 mg/dL [facility] Creatinine 2.30(H) 0.80 - 1.30 mg/dL [facility] Glucose 179 70 - 199 mg/dL [facility] Comment: Interpretive Data Fasting glucose >/= 126 [...] 2022. Calcium 8.9 8.5 - 10.3 mg/dL [facility] Blood 10/16/2024 4:56 PM CYBER SECURITY 10/16/2024 5:44 PM CYBER SECURITY Narrative [facility] - 10/16/2024 6:36 PM CYBER SECURITY To be drawn at the end of obina infusion Amilcar Sarabia MD LAB BLOOD ORDERABLES Final R esult Performing Organization Address City/[facility]/ZIP Co de Phone Number [facility] [place] [address] * (ABNORMAL) eGFR (10/16/2024 9:07 AM CYBER SECURITY) Pathologist [facility] eGFR 27(L) >=60 mL/min/1. 73 m2 Comment: [...] last reviewed 2021. Blood 10/16/2024 9:07 AM CYBER SECURITY 10/16/2024 9:13 AM CYBER SECURITY us Amilcar Sarabia MD LAB BLOOD ORDERABLES Final R esult [facility] [place] [address] * (ABNORMAL) CBC without differential (10/16/2024 9:07 AM CYBER SECURITY) [facility] WBC 9.5 3.8 - 9.9 K/cumm Comment:Testing performed by : [facility], [address] [place] [phone] Hgb 8.9(L) 13.0 - 17.5 g/dL BEN CERRATO Comment:Testing performed by : [facility], [address] [place] [phone] Hct 28.4(L) 38.9 - 50.3 % BEN CERRATO Comment:Testing performed by : [facility], [address] [place] [phone] Plt 87(L) 150 - 400 K/cumm BEN [facility] Comment:Testing performed by : [facility], [address] [place], [place] [phone] MPV 8.5 6.8 - 10.4 fL BEN [facility] Comment:Testing performed by : [facility], [address] [place], [place] [phone] RBC 3.39(L) 4.30 - 5.80 M/cumm BEN CERRATO Comment:Testing performed by : [facility], [address] [place], [place] [phone] MCV 83.7 81.3 - 96.4 fL BEN [facility] Comment:Testing performed by : [facility], [address] [place], [place] [phone] MCH 26.3(L) 27.1 - 33.3 pg [facility] Comment:Testing performed by : [facility], [address] [place], [place] [phone] MCHC 31.4(L) 32.3 - 35.7 g/dL [facility] Comment:Testing performed by : [facility], [address] [place] [address] RDW CV 16.9(H) 11.1 - 14.9 % [facility] Comment:Testing performed by : [facility], [address] [place] [address] Blood 10/16/2024 9:07 AM CYBER SECURITY 10/16/2024 9:19 AM CYBER SECURITY Cas Taylor MD LAB BLOOD ORDERABLES Fin al Result [facility] [place] [address] * Uric acid (10/16/2024 9:07 AM CYBER SECURITY) Uric acid 6.1 3.0 - 8.0 mg/dL Blood 10/16/2024 9:07 AM CYBER SECURITY 10/16/2024 9:13 AM CYBER SECURITY Amilcar Sarabia MD LAB BLOOD ORDERABLES Final R esult Performing Organization Address [facility] Co de Phone Number [facility] [place] [address] * Phosphorus (10/16/2024 9:07 AM CYBER SECURITY) Pathologist [facility] Phosphorus, pl 4.1 2.3 - 4.5 mg/dL Blood 10/16/2024 9:07 AM CYBER SECURITY 10/16/2024 9:13 AM CYBER SECURITY us Amilcar Sarabia MD LAB BLOOD ORDERABLES Final R ult Performing Organization Address [facility] [place] [address] * (ABNORMAL) Lactate dehydrogenase (LD) (10/16/2024 9:07 AM CYBER SECURITY) [facility] Lactate dehydrogenase (LDH) 257(H) 100 - 250 Units/L Blood 10/16/2024 9:07 AM CYBER SECURITY 10/16/2024 9:13 AM CYBER SECURITY us Amilcar Sarabia MD LAB BLOOD ORDERABLES Final R esult Performing Organization Address [facility] de Phone Number [facility] [place] [address] * (ABNORMAL) Basic metabolic panel (10/16/2024 9:07 AM CYBER SECURITY) Pathologist [facility] Sodium 145 135 - 145 mmol/L Potassium, pl 4.6 3.3 - 4.9 mmol/L [facility] Chloride 108 97 - 110 mmol/L [facility] CO2 27 22 - 32 mmol/L [facility] Anion gap 10 2 - 15 mmol/L [facility] BUN 38(H) 6 - 25 mg/dL [facility] Creatinine 2.38(H) 0.80 - 1.30 mg/dL [facility] Glucose 125 70 - 199 mg/dL [facility] Comment: Interpretive Data Fasting glucose >/= 126 [...] 2022. Calcium 9.2 8.5 - 10.3 mg/dL [facility] Blood 10/16/2024 9:07 AM CYBER SECURITY 10/16/2024 9:13 AM CYBER SECURITY us Amilcar Sarabia MD LAB BLOOD ORDERABLES Final R esult Performing Organization Address City/[facility]/ZIP Co de Phone Number [facility] Department [place] [address] * Hepatitis C antibody Blood (10/15/2024 9:53 AM CYBER SECURITY) Pathologist [facility] Hep C Ab Nonreactive Nonreactive Comment:Antibodies to HCV no t detected. Does NOT exclude the possibility of recent exposure to HCV. Current interpretive data was last revised on 22 Blood 10/15/2024 9:53 AM CYBER SECURITY 10/15/2024 10:33 AM CYBER SECURITY Amilcar Sarabia MD LAB MICROBIOLOGY - GENERAL O RDERABLES Final Result Performing Organization Address City/[facility]/ZIP Co de Phone Number [facility] Department [place] [employer] [place] [address] * Hepatitis B core antibody, total Blood (10/15/2024 9:53 AM CYBER SECURITY) Pathologist [facility] Hep B core IgG/IgM Nonreactive Nonreactive Blood 10/15/2024 9:53 AM CYBER SECURITY 10/15/2024 10:33 AM CYBER SECURITY Amilcar Sarabia MD LAB MICROBIOLOGY - GENERAL O RDERABLES Final Result Performing Organization Address City/[facility] Co de Phone Number BEN [facility] [place] [employer] [place] [address] * Hepatitis B surface antibody (immune status) Blood (10/15/2024 9:53 AM CYBER SECURITY) Pathologist [facility] HBsAb (immune status) Nonreactive Comment:This result is consi stent with a lack of immunity to Hepatitis B Virus when used in the setting of routine screening. Current interpretative data was last revised on 22 Blood 10/15/2024 9:53 AM CYBER SECURITY 10/15/2024 10:33 AM CYBER SECURITY mAilcar Sarabia MD LAB MICROBIOLOGY - GENERAL O RDERABLES Final Result Performing Organization Address [facility] [place] [address] * Hepatitis B Surface Antigen Blood (10/15/2024 9:53 AM CYBER SECURITY) Pathologist [facility] HepBsAg Nonreactive Nonreactive Blood 10/15/2024 9:53 AM CYBER SECURITY 10/15/2024 10:33 AM CYBER SECURITY Amilcar Sarabia MD LAB MICROBIOLOGY - GENERAL O RDERABLES Final Result Performing Organization Address City/[facility] Co de Phone Number [facility] [place] [place] [address] * (ABNORMAL) eGFR (10/15/2024 7:37 AM CYBER SECURITY) Pathologist [facility] eGFR 38(L) >=60 mL/min/1. 73 m2 Comment: [...] last reviewed 2021. Blood 10/15/2024 7:37 AM CYBER SECURITY 10/15/2024 7:43 AM CYBER SECURITY us Amilcar Sarabia MD LAB BLOOD ORDERABLES Final R esult [facility] [place] [address] * (ABNORMAL) CBC with auto differential (10/15/2024 7:37 AM CYBER SECURITY) WBC 37.4(H) 3.8 - 9.9 K/cumm Comment:Testing performed by : [facility], [address] [place] [address] Hgb 9.1(L) 13.0 - 17.5 g/dL BEN CERRATO Comment:Testing performed by : [facility], [address] [place] [address] Hct 28.9(L) 38.9 - 50.3 % BEN CERRATO Comment:Testing performed by : [facility], [address] [place] [address] Plt 105(L) 150 - 400 K/cumm BEN CERRATO Comment:Testing performed by : [facility], [address] [place] [address] MPV 8.3 6.8 - 10.4 fL BEN CERRATO Comment:Testing performed by : [facility], [address] [place] [address] RBC 3.42(L) 4.30 - 5.80 M/cumm BEN CERRATO Comment:Testing performed by : [facility], [address] [place] [address] MCV 84.3 81.3 - 96.4 fL BEN CERRATO Comment:Testing performed by : [facility], [address] [place] [address] MCH 26.5(L) 27.1 - 33.3 pg BEN [facility] Comment:Testing performed by : [facility], [address] [place], [place] [phone] MCHC 31.5(L) 32.3 - 35.7 g/dL BEN CERRATO Comment:Testing performed by : [facility], [address] [place] [address] RDW CV 17.1(H) 11.1 - 14.9 % BEN [facility] Comment:Testing performed by : [facility], [address] [place] [address] NRBC abs 0.00 0.00 - 0.01 K/cumm BEN [facility] Comment:Testing performed by : [facility], [address] [place] [address] Blood 10/15/2024 7:37 AM CYBER SECURITY 10/15/2024 7:41 AM CYBER SECURITY us Amilcar Sarabia MD LAB BLOOD ORDERABLES Edited Result - Final BEN CERRATO [facility] Department [place] [address] * (ABNORMAL) Manual Differential (10/15/2024 7:37 AM CYBER SECURITY) Cells Counted 200 Comment:Testing performed by : [facility], [address] [place] [phone] Neutrophil abs 3.7 1.5 - 6.5 K/cumm [facility] Comment:Testing performed by : [facility], [address] [place] [phone] Lymphocyte abs 33.7(H) 0.8 - 3.3 K/cumm [facility] Comment:Testing performed by : [facility], [address] [place] [phone] Monocyte abs 0.4 0.2 - 0.8 K/cumm [facility] Comment:Testing performed by : [facility], [address] [place], [place] [phone] Eosinophil abs 0.0 0.0 - 0.5 K/cumm [facility] Comment:Testing performed by : [facility], [address] [place], [place] [phone] Basophil abs 0.0 0.0 - 0.1 K/cumm [facility] Comment:Testing performed by : [facility], [address] [place] [phone] Neutrophil pct 10.0 % [facility] Comment: Interpretive Data Percent cell count reference ranges are not reported, since discordance with absolute values may lead to misinterpretation of CBC data. Current Interpretive Data was last revised on 2018. Testing performed by: [facility], [address] [place] [phone] Lymphocyte pct 90.0 % [facility] Comment: Interpretive Data Percent cell count reference ranges are not reported, since discordance with absolute values may lead to misinterpretation of CBC data. Current Interpretive Data was last revised on 2018. Testing performed by: [facility], [address] [place] [phone] Monocyte pct 1.0 % [facility] Comment: Interpretive Data Percent cell count reference ranges are not reported, since discordance with absolute values may lead to misinterpretation of CBC data. Current Interpretive Data was last revised on 2018. Testing performed by: [facility], [address] [place] [phone] Eosinophil pct 0.0 % [facility] Comment: Interpretive Data Percent cell count reference ranges are not reported, since discordance with absolute values may lead to misinterpretation of CBC data. Current Interpretive Data was last revised on 2018. Testing performed by: [facility], [address] [place] [phone] Basophil pct 0.0 % BEN CERRATO Comment: Interpretive Data Percent cell count reference ranges are not reported, since discordance with absolute values may lead to misinterpretation of CBC data. Current Interpretive Data was last revised on 2018. Testing performed by: [facility], [address] [place] [phone] Microcytes 1+(A) BEN CERRATO Comment:Testing performed by : [facility], [address] [place] [phone] Elliptocytes 1+(A) BEN CERRATO Comment:Testing performed by : [facility], [address] [place] [phone] Platelet estimate Decreased (A) BEN CERRATO Comment:Testing performed by : [facility], [address] [place] [phone] Blood 10/15/2024 7:37 AM CYBER SECURITY 10/15/2024 7:41 AM CYBER SECURITY us Amilcar Sarabia MD LAB BLOOD ORDERABLES Final R esult Performing Organization Address City/[facility] Co de Phone Number BEN [facility] Department [place] [address] * Uric acid (10/15/2024 7:37 AM CYBER SECURITY) Uric acid 5.3 3.0 - 8.0 mg/dL Blood 10/15/2024 7:37 AM CYBER SECURITY 10/15/2024 7:43 AM CYBER SECURITY Amilcar Sarabia MD LAB BLOOD ORDERABLES Final R esult Performing Organization Address City/[facility] Co de Phone Number BEN [facility] Department [place] [address] * Phosphorus (10/15/2024 7:37 AM CYBER SECURITY) Pathologist [facility] Phosphorus, pl 3.7 2.3 - 4.5 mg/dL Blood 10/15/2024 7:37 AM CYBER SECURITY 10/15/2024 7:43 AM CYBER SECURITY Amilcar Sarabia MD LAB BLOOD ORDERABLES Final R esult Performing Organization Address City/[facility]/ZIP Co de Phone Number [facility] [place] [address] * Lactate dehydrogenase (LD) (10/15/2024 7:37 AM CYBER SECURITY) [facility] Lactate dehydrogenase (LDH) 170 100 - 250 Units/L Blood 10/15/2024 7:37 AM CYBER SECURITY 10/15/2024 7:43 AM CYBER SECURITY Amilcar Sarabia MD LAB BLOOD ORDERABLES Final R esult Performing Organization Address City/[facility] [place] [address] * (ABNORMAL) Comprehensive metabolic panel (10/15/2024 7:37 AM CYBER SECURITY) Pathologist [facility] Sodium 146(H) 135 - 145 mmol/L Potassium, pl 4.1 3.3 - 4.9 mmol/L [facility] Chloride 111(H) 97 - 110 mmol/L [facility] CO2 28 22 - 32 mmol/L [facility] Anion gap 7 2 - 15 mmol/L [facility] BUN 28(H) 6 - 25 mg/dL [facility] Creatinine 1.82(H) 0.80 - 1.30 mg/dL [facility] Glucose 121 70 - 199 mg/dL [facility] Comment: Interpretive Data Fasting glucose >/= 126 [...] Calcium 9.4 8.5 - 10.3 mg/dL CERN[facility] Bilirubin, total 0.3 0.1 - 1.2 mg/dL [facility] Protein, pl 6.7 6.5 - 8.5 g/dL [facility] Albumin 4.0 3.5 - 5.0 g/dL [facility] Alk phos 93 40 - 130 Units/L [facility] ALT 20 7 - 55 Units/L [facility] AST 31 10 - 50 Units/L [facility] Blood 10/15/2024 7:37 AM CYBER SECURITY 10/15/2024 7:43 AM CYBER SECURITY Amilcar Sarabia MD LAB BLOOD ORDERABLES Final R esult [facility] Department of Laboratories [place], [place] [id number] from Last 3 Months Insurance MEDICARE [facility] [place] Member Subscriber Plan / Payer (Ef fective 2017-Present) Name:Wiliam Britt Relation to Subscriber:Self Name:Wiliam Britt Payer ID:[id number] Group ID:Not on file Type:COMMERCIAL Address: [facility] [address] [place], [place] MEDICARE [place] Member Subscriber Plan / Payer (Ef fective 2017-Present) Name:Wiliam Britt Relation to Subscriber:Self Name:Wiliam Britt Payer ID:[id number] Group ID:Not on file Type:CareWire Address: [facility] [address] [place], [place] Advance Directives For more information, please contact: [phone] * Full Code (Latest Code Status on File) Date Activated Date Inactivated Comments 03/14/2024 2:50 PM 03/22/2024 5:48 PM * Full Code Date Activated Date Inactivated Comments 03/11/2024 10:34 PM 03/14/2024 2:49 PM Care Teams Supervisor Forming Department Relationship Specialty Start Date End Date Kyle Hendricks MD PCP - General 04/06/17 Amilcar Sarabia MD Medical Oncologist/Help Desk Engineer Medical Oncology 05/24/22 Cas Taylor MD [id number] [place] [address] Consulting Physician Cardiothoracic Surgery 03/22/24
--- OUTSIDE RECORDS SUMMARY | 2025-01-09 03:00 | XMS_ITS | Encounter Summary ---
Author Organization [facility] Address [address] [place] [address] Phone Care Team Providers Care Supervisor [employer] Name Role Phone Kyle Hendricks MD Primary Care Provider [phone] Amilcar Sarabia MD Unavailable [phone] Cas Taylor MD Unavailable [phone] Encounter Details Date Type Department Care Team (Latest Contact Info) Description 02/14/2020 Orders Only [facility] Scanning, Provider Social History Tobacco Use Types Packs/Day Years Used Date Smoking Tobacco: Former Cigarettes Q uit: 1976 Smokeless Tobacco: Former Sex and Gender Information Value Date Recorded Sex Assigned at Not on file Legal Sex Male 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
--- OUTSIDE RECORDS SUMMARY | 2025-01-09 03:00 | XMS_ITS | Clinical Summary ---
Author Organization [facility] Address [address] [place] [address] Care Team Providers Care Wood Router Hand Name Role Phone Kyle Hendricks MD Primary Care Provider [phone] Amilcar Sarabia MD Unavailable [phone] Cas Taylor MD Unavailable [phone] Allergies Active Allergy Reactions Criticality Noted Date [...] without mention of having achieved remission(204.10) (FORMERLY [facility]) Take 1 tablet (10 mg total) [...] without mention of having achieved remission(204.10) ([facility]) TAKE 1 TABLET BY MOUTH EVERY [...] - patient followed by Dr. Sarabia from [facility] - Per BMT team, CLL stable disease okay to proceed with cardiac interventions such as CABG - Counts overall stable--> WBC mildly increased w/ mild decreased in hgb and platelets. 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 Assessment & Plan (03/21/2024 2:42 PM CDT): 03/14: CABGx4 (VILLALTA-LAD, HES-XT-Lafvb PLB, SVG-PDA), JOYCE clip (40mm) -TTF on [...] Team Description 01/07/2025 10:00 AM CDT Infusion [facility] - Infusion [address] [place] [address] 6 [place] [address] Chemotherapy-induced neutropenia (Primary Dx); Chronic lymphoid leukemia, without mention of having achieved remission(204.10) (HCC) 01/07/2025 9:00 AM CDT Office Visit [facility] [address] [place] [phone] Jolie Iraheta NP CLL (chronic lymphocytic leukemia) ([facility]) (Primary Dx); Chronic lymphoid leukemia, without mention of having achieved remission(204.10) ([facility]); Chemotherapy-induced neutropenia 01/07/2025 8:00 AM CDT Lab [facility] Lab [address] [place] [phone] Chronic lymphoid leukemia, without mention of having achieved remission(204.10) ([facility]); Chemotherapy-induced neutropenia 01/07/2025 7:45 AM CDT Clinical Support [facility] - Lab Collection [facility] 6 [place] [address] Chronic lymphoid leukemia, without mention of having achieved remission(204.10) ([facility]) 12/17/2024 7:30 AM CDT Infusion [facility] - Infusion [address] 6 [place] [address] Iron deficiency anemia, unspecified iron deficiency anemia type (Primary Dx); CLL (chronic lymphocytic leukemia) (HCC); Chronic lymphoid leukemia, without mention of having achieved remission(204.10) ([facility]) 12/10/2024 2:30 PM SCENE AND LIGHTING DESIGN LECTURER Infusion [facility] - Infusion [address] [place] [address] Ave Floor 6 [place] [address] CLL (chronic lymphocytic leukemia) ([facility]) 12/10/2024 9:30 AM SCENE AND LIGHTING DESIGN LECTURER Infusion [facility] - Infusion [address] [place] [address] Ave Floor 6 [place] [address] Chronic lymphoid leukemia, without mention of having achieved remission(204.10) ([facility]) (Primary Dx); Iron deficiency anemia, unspecified iron deficiency anemia type 12/10/2024 8:30 AM SCENE AND LIGHTING DESIGN LECTURER Office Visit [facility] [address] [place] [address] Floor 6 [place] [phone] Amilcar Sarabia MD CLL (chronic lymphocytic leukemia) ([facility]) (Primary Dx); Chronic lymphoid leukemia, without mention of having achieved remission(204.10) ([facility]) 12/10/2024 7:45 AM SCENE AND LIGHTING DESIGN LECTURER Lab [facility] - Lab Collection [address] [place], [place] [address]e Floor 6 [place] [address] Chronic lymphoid leukemia, without mention of having achieved remission(204.10) ([facility]); CLL (chronic lymphocytic leukemia) ([facility]) 12/10/2024 7:30 AM SCENE AND LIGHTING DESIGN LECTURER Lab [facility] [address] [place] [address] Floor 6 [place] [address] Chronic lymphoid leukemia, without mention of having achieved remission(204.10) ([facility]) 11/26/2024 7:40 AM SCENE AND LIGHTING DESIGN LECTURER Lab [address] [address] Chronic lymphoid leukemia, without mention of having achieved remission(204.10) ([facility]) 11/26/2024 Telephone [facility] [address] [place] [address] 6 [place] [address] Jolie Iraheta NP 11/19/2024 8:05 AM SCENE AND LIGHTING DESIGN LECTURER Lab [address] [address] Chronic lymphoid leukemia, without mention of having achieved remission(204.10) (HCC) 11/19/2024 Telephone [facility] [address] [place] [address] 6 [place] [address] Leeanna Vela RN 11/19/2024 Orders Only [facility] [address] [place] [address] 6 [place] [address] Leeanna Vela RN Chronic lymphoid leukemia, without mention of having achieved remission(204.10) ([facility]) (Primary Dx) 11/14/2024 Orders Only [facility] [address] [place] [address] 6 [place] [address] Jolie Iraheta NP CLL (chronic lymphocytic leukemia) ([facility]) (Primary Dx) 11/13/2024 8:15 AM SCENE AND LIGHTING DESIGN LECTURER Lab [address] [address] Chronic lymphoid leukemia, without mention of having achieved remission(204.10) ([facility]) 11/13/2024 Telephone [facility] [address] [place] [address] 6 [place] [address] Leeanna Vela RN 11/12/2024 10:00 AM SCENE AND LIGHTING DESIGN LECTURER Infusion [facility] - Infusion [address] [place] [address] Floor 5 [place] [address] Chronic lymphoid leukemia, without mention of having achieved remission(204.10) ([facility]) (Primary Dx) 11/12/2024 9:00 AM SCENE AND LIGHTING DESIGN LECTURER Office Visit [facility] [address] [place] [address] 6 [place] [address] Jolie Iraheta NP CLL (chronic lymphocytic leukemia) ([facility]) (Primary Dx); Chronic lymphoid leukemia, without mention of having achieved remission(204.10) (HCC) 11/12/2024 8:00 AM SCENE AND LIGHTING DESIGN LECTURER Lab [facility] Lab [facility] 6 [place] [address] Chronic lymphoid leukemia, without mention of having achieved remission(204.10) ([facility]) 11/12/2024 7:45 AM SCENE AND LIGHTING DESIGN LECTURER Lab [facility] - Lab Collection [facility] Floor 6 [place] [address] Chronic lymphoid leukemia, without mention of having achieved remission(204.10) ([facility]) 11/06/2024 8:55 AM SCENE AND LIGHTING DESIGN LECTURER Lab [address] [address] Chronic lymphoid leukemia, without mention of having achieved remission(204.10) ([facility]) 11/06/2024 Telephone [facility] [address] [place] [phone] Leeanna Vela RN 11/05/2024 2:45 PM SCENE AND LIGHTING DESIGN LECTURER Lab [facility] [address] [place] [phone] Chronic lymphoid leukemia, without mention of having achieved remission(204.10) ([facility]) 11/05/2024 10:00 AM SCENE AND LIGHTING DESIGN LECTURER Office Visit [facility] [address] [place] [phone] Jolie Iraheta NP Chronic lymphoid leukemia, without mention of having achieved remission(204.10) ([facility]) (Primary Dx) 11/05/2024 9:15 AM SCENE AND LIGHTING DESIGN LECTURER Clinical Support [facility] - Lab Collection [address] [place] [address] 6 [place] [address] Chronic lymphoid leukemia, without mention of having achieved remission(204.10) ([facility]) 11/05/2024 9:00 AM SCENE AND LIGHTING DESIGN LECTURER Lab [facility] [address] [place] [address] 6 [place] [address] Chronic lymphoid leukemia, without mention of having achieved remission(204.10) ([facility]) 11/05/2024 7:08 AM SCENE AND LIGHTING DESIGN LECTURER - 11/05/2024 11:59 PM SCENE AND LIGHTING DESIGN LECTURER Hospital [facility] [place] [facility] [address] [place] [address] Amilcar Sarabia MD CLL (chronic lymphocytic leukemia) (HCC) Discharge Disposition: Discharge to home or self care 10/29/2024 9:00 AM SCENE AND LIGHTING DESIGN LECTURER Infusion [facility]fusion [address] [place] [address] Chronic lymphoid leukemia, without mention of having achieved remission(204.10) (HCC) (Primary Dx) 10/29/2024 8:00 AM SCENE AND LIGHTING DESIGN LECTURER Lab [facility] - Lab Collection [address] [place] [address] Chronic lymphoid leukemia, without mention of having achieved remission(204.10) (HCC) 10/23/2024 8:15 AM SCENE AND LIGHTING DESIGN LECTURER Office Visit [facility] [address] [place] [address] Denis Blunt MD Ischemic cardiomyopathy (Primary Dx) 10/22/2024 9:00 AM SCENE AND LIGHTING DESIGN LECTURER Infusion [facility]fusion [address] [place] [address] 6 [place] [address] Chronic lymphoid leukemia, without mention of having achieved remission(204.10) (HCC) (Primary Dx) 10/22/2024 8:00 AM SCENE AND LIGHTING DESIGN LECTURER Lab [facility] - Lab Collection [address] [place] [address] 6 [place] [address] Chronic lymphoid leukemia, without mention of having achieved remission(204.10) (HCC); CAD in [place] artery 10/17/2024 Documentation [facility] Pharmacy [address] [place] [address] Leni Bull, EDILA FINANCIAL ASSIST [employer] 10/17/2024 Telephone [facility] [address] [place] [address] Floor 6 [place] [phone] Leni So, TEJA 10/16/2024 10:00 AM SCENE AND LIGHTING DESIGN LECTURER Infusion [facility] Infusion [address] [place], [place] [address]e [facility] 6 [place] [address] Chronic lymphoid leukemia, without mention of having achieved remission(204.10) (HCC) (Primary Dx) 10/16/2024 9:00 AM SCENE AND LIGHTING DESIGN LECTURER Lab [facility] - Lab Collection [address] [place] [address] Chronic lymphoid leukemia, without mention of having achieved remission(204.10) ([facility]); CAD in [place] artery 10/16/2024 Orders Only [facility] [address] [place] [phone] Amilcar Sarabia MD Chronic lymphoid leukemia, without mention of having achieved remission(204.10) ([facility]) (Primary Dx) 10/15/2024 9:30 AM SCENE AND LIGHTING DESIGN LECTURER Infusion [facility] Infusion [address] [place] [address] Chronic lymphoid leukemia, without mention of having achieved remission(204.10) ([facility]) (Primary Dx) 10/15/2024 8:15 AM SCENE AND LIGHTING DESIGN LECTURER Office Visit [facility] [address] [place] [phone] Amilcar Sarabia MD CLL (chronic lymphocytic leukemia) ([facility]) (Primary Dx); Chronic lymphoid leukemia, without mention of having achieved remission(204.10) ([facility]) 10/15/2024 7:30 AM SCENE AND LIGHTING DESIGN LECTURER Lab [facility] - Lab Collection [address] [place] [address] Chronic lymphoid leukemia, without mention of having achieved remission(204.10) ([facility]); CLL (chronic lymphocytic leukemia) ([facility]) 10/15/2024 7:15 AM SCENE AND LIGHTING DESIGN LECTURER Lab [facility] [address] [place] [phone] Chronic lymphoid leukemia, without mention of having achieved remission(204.10) ([facility]) 10/15/2024 Documentation [facility] [address] [place] [phone] Tanesha Pacheco, Edson Appointment 10/14/2024 Telephone [facility] [address] [place] [phone] Leni So RN from Last 3 [...] on file Legal Sex Male 6:26 PM SCENE AND LIGHTING DESIGN LECTURER Gender Identity Not on file Sexual Orientation [...] cm (6' 3 ) 11/05/2024 8:35 AM SCENE AND LIGHTING DESIGN LECTURER Body Mass Index 24.32 11/05/2024 8:35 AM SCENE AND LIGHTING DESIGN LECTURER Plan of Treatment Health Maintenance Due Date [...] 03/12/2024, 04/21/2020 Medical Devices Implanted Type Area Contact Center Representative Device Identifier Shelf Expiration Date Model / Serial / Lot [employer] Sternalock 360 Sternal Closure 74-0004 - [id number] Implanted:Qty: 1 on 03/14/2024 by Mary Kirk MD at [facility] N/A: Sternum [employer] [id number] 01/15/2029 74-0004 / / [id number] [employer] Sternalock Anshul 2.4mm 12mm Self Drill Lock Sternum Cancellous 73-2412 - [id number] Implanted:Qty: 9 on 03/14/2024 by Mary Kirk MD at [facility] N/A: Sternum [employer] 73-2412 / / [employer] Sternalock Anshul 2.4mm 14mm Self Drill Lock Sternum Cancellous 73-2414 - [id number] Implanted:Qty: 7 on 03/14/2024 by Mary Kirk MD at [facility] N/A: Sternum [employer] 73-2414 / / Atricure Clip Closure Exclusion System Preloaded Standard Left Atrial Appendage At[employer]lip 40mm [id number] - [id number] Implanted:Qty: 1 on 03/14/2024 by Cas Taylor MD at [facility] Heart [employer] [id number] / / [id number] Procedures Procedure Name Priority Date/Time Associated Diagnosis [...] DIFFERENTIAL AUTO Routine 12/10/2024 8:3 0 AM SCENE AND LIGHTING DESIGN LECTURER CLL (chronic lymphocytic leukemia) (HCC) CBC WITH AUTO DIFFERENTIAL Routine 12/10/2024 8:30 AM SCENE AND LIGHTING DESIGN LECTURER CLL (chronic lymphocytic leukemia) (HCC) EGFR STAT 12/10/2024 8:10 AM SCENE AND LIGHTING DESIGN LECTURER Chronic lymphoid leukemia, without mention of having achieved remission(204.10) (HCC) BETA 2 MICROGLOBULIN SERUM Routine 12/10/2024 8:10 AM SCENE AND LIGHTING DESIGN LECTURER Chronic lymphoid leukemia, without mention of having achieved remission(204.10) (HCC) COMPREHENSIVE METABOLIC PANEL STAT 12/10/2024 8:10 AM SCENE AND LIGHTING DESIGN LECTURER Chronic lymphoid leukemia, without mention of having achieved remission(204.10) (HCC) LACTATE DEHYDROGENASE Routine 12/10/2024 8:10 AM SCENE AND LIGHTING DESIGN LECTURER Chronic lymphoid leukemia, without mention of having achieved remission(204.10) (HCC) EGFR STAT 11/26/2024 7:51 AM SCENE AND LIGHTING DESIGN LECTURER Chronic lymphoid leukemia, without mention of having achieved remission(204.10) (HCC) DIFFERENTIAL AUTO STAT 11/26/2024 7:5 1 AM SCENE AND LIGHTING DESIGN LECTURER Chronic lymphoid leukemia, without mention of having achieved remission(204.10) (HCC) CBC WITH AUTO DIFFERENTIAL STAT 11/26/2024 7:51 AM SCENE AND LIGHTING DESIGN LECTURER Chronic lymphoid leukemia, without mention of having achieved remission(204.10) (HCC) COMPREHENSIVE METABOLIC PANEL STAT 11/26/2024 7:51 AM SCENE AND LIGHTING DESIGN LECTURER Chronic lymphoid leukemia, without mention of having achieved remission(204.10) (HCC) PHOSPHORUS STAT 11/26/2024 7:51 AM SCENE AND LIGHTING DESIGN LECTURER Chronic lymphoid leukemia, without mention of having achieved remission(204.10) (HCC) URIC ACID STAT 11/26/2024 7:51 AM SCENE AND LIGHTING DESIGN LECTURER Chronic lymphoid leukemia, without mention of having achieved remission(204.10) (HCC) EGFR STAT 11/19/2024 10:21 AM SCENE AND LIGHTING DESIGN LECTURER Chronic lymphoid leukemia, without mention of having achieved remission(204.10) (HCC) DIFFERENTIAL AUTO STAT 11/19/2024 10: 21 AM SCENE AND LIGHTING DESIGN LECTURER Chronic lymphoid leukemia, without mention of having achieved remission(204.10) (HCC) URIC ACID STAT 11/19/2024 10:21 AM SCENE AND LIGHTING DESIGN LECTURER Chronic lymphoid leukemia, without mention of having achieved remission(204.10) (HCC) PHOSPHORUS STAT 11/19/2024 10:21 AM SCENE AND LIGHTING DESIGN LECTURER Chronic lymphoid leukemia, without mention of having achieved remission(204.10) (HCC) COMPREHENSIVE METABOLIC PANEL STAT 11/19/2024 10:21 AM SCENE AND LIGHTING DESIGN LECTURER Chronic lymphoid leukemia, without mention of having achieved remission(204.10) (HCC) CBC WITH AUTO DIFFERENTIAL STAT 11/19/2024 10:21 AM SCENE AND LIGHTING DESIGN LECTURER Chronic lymphoid leukemia, without mention of having achieved remission(204.10) (HCC) EGFR STAT 11/13/2024 8:21 AM SCENE AND LIGHTING DESIGN LECTURER Chronic lymphoid leukemia, without mention of having achieved remission(204.10) (HCC) URIC ACID STAT 11/13/2024 8:21 AM SCENE AND LIGHTING DESIGN LECTURER Chronic lymphoid leukemia, without mention of having achieved remission(204.10) (HCC) PHOSPHORUS STAT 11/13/2024 8:21 AM SCENE AND LIGHTING DESIGN LECTURER Chronic lymphoid leukemia, without mention of having achieved remission(204.10) (HCC) COMPREHENSIVE METABOLIC PANEL STAT 11/13/2024 8:21 AM SCENE AND LIGHTING DESIGN LECTURER Chronic lymphoid leukemia, without mention of having achieved remission(204.10) (HCC) EGFR STAT 11/12/2024 3:30 PM SCENE AND LIGHTING DESIGN LECTURER Chronic lymphoid leukemia, without mention of having achieved remission(204.10) (HCC) URIC ACID STAT 11/12/2024 3:30 PM SCENE AND LIGHTING DESIGN LECTURER Chronic lymphoid leukemia, without mention of having achieved remission(204.10) (HCC) PHOSPHORUS STAT 11/12/2024 3:30 PM SCENE AND LIGHTING DESIGN LECTURER Chronic lymphoid leukemia, without mention of having achieved remission(204.10) (HCC) BASIC METABOLIC PANEL STAT 11/12/2024 3:30 PM SCENE AND LIGHTING DESIGN LECTURER Chronic lymphoid leukemia, without mention of having achieved remission(204.10) (HCC) IRON PROFILE W/ IBC STAT 11/12/2024 7 :48 AM SCENE AND LIGHTING DESIGN LECTURER Chronic lymphoid leukemia, without mention of having achieved remission(204.10) (HCC) FERRITIN STAT 11/12/2024 7:48 AM SCENE AND LIGHTING DESIGN LECTURER Chronic lymphoid leukemia, without mention of having achieved remission(204.10) (HCC) EGFR STAT 11/12/2024 7:48 AM SCENE AND LIGHTING DESIGN LECTURER Chronic lymphoid leukemia, without mention of having achieved remission(204.10) (HCC) DIFFERENTIAL AUTO STAT 11/12/2024 7:4 8 AM SCENE AND LIGHTING DESIGN LECTURER Chronic lymphoid leukemia, without mention of having achieved remission(204.10) (HCC) CBC WITH AUTO DIFFERENTIAL STAT 11/12/2024 7:48 AM SCENE AND LIGHTING DESIGN LECTURER Chronic lymphoid leukemia, without mention of having achieved remission(204.10) (HCC) COMPREHENSIVE METABOLIC PANEL STAT 11/12/2024 7:48 AM SCENE AND LIGHTING DESIGN LECTURER Chronic lymphoid leukemia, without mention of having achieved remission(204.10) (HCC) LACTATE DEHYDROGENASE Routine 11/12/2024 7:48 AM SCENE AND LIGHTING DESIGN LECTURER Chronic lymphoid leukemia, without mention of having achieved remission(204.10) (HCC) PHOSPHORUS STAT 11/12/2024 7:48 AM SCENE AND LIGHTING DESIGN LECTURER Chronic lymphoid leukemia, without mention of having achieved remission(204.10) (HCC) URIC ACID STAT 11/12/2024 7:48 AM SCENE AND LIGHTING DESIGN LECTURER Chronic lymphoid leukemia, without mention of having achieved remission(204.10) (HCC) EGFR STAT 11/06/2024 9:10 AM SCENE AND LIGHTING DESIGN LECTURER Chronic lymphoid leukemia, without mention of having achieved remission(204.10) (HCC) DIFFERENTIAL AUTO STAT 11/06/2024 9:1 0 AM SCENE AND LIGHTING DESIGN LECTURER Chronic lymphoid leukemia, without mention of having achieved remission(204.10) (HCC) LACTATE DEHYDROGENASE Routine 11/06/2024 9:10 AM SCENE AND LIGHTING DESIGN LECTURER Chronic lymphoid leukemia, without mention of having achieved remission(204.10) (HCC) BETA 2 MICROGLOBULIN SERUM Routine 11/06/2024 9:10 AM SCENE AND LIGHTING DESIGN LECTURER Chronic lymphoid leukemia, without mention of having achieved remission(204.10) (HCC) CBC WITH AUTO DIFFERENTIAL STAT 11/06/2024 9:10 AM SCENE AND LIGHTING DESIGN LECTURER Chronic lymphoid leukemia, without mention of having achieved remission(204.10) (HCC) COMPREHENSIVE METABOLIC PANEL STAT 11/06/2024 9:10 AM SCENE AND LIGHTING DESIGN LECTURER Chronic lymphoid leukemia, without mention of having achieved remission(204.10) (HCC) PHOSPHORUS STAT 11/06/2024 9:10 AM SCENE AND LIGHTING DESIGN LECTURER Chronic lymphoid leukemia, without mention of having achieved remission(204.10) (HCC) URIC ACID STAT 11/06/2024 9:10 AM SCENE AND LIGHTING DESIGN LECTURER Chronic lymphoid leukemia, without mention of having achieved remission(204.10) (HCC) EGFR STAT 11/05/2024 2:43 PM SCENE AND LIGHTING DESIGN LECTURER Chronic lymphoid leukemia, without mention of having achieved remission(204.10) (HCC) BASIC METABOLIC PANEL STAT 11/05/2024 2:43 PM SCENE AND LIGHTING DESIGN LECTURER Chronic lymphoid leukemia, without mention of having achieved remission(204.10) (HCC) PHOSPHORUS STAT 11/05/2024 2:43 PM SCENE AND LIGHTING DESIGN LECTURER Chronic lymphoid leukemia, without mention of having achieved remission(204.10) (HCC) URIC ACID STAT 11/05/2024 2:43 PM SCENE AND LIGHTING DESIGN LECTURER Chronic lymphoid leukemia, without mention of having achieved remission(204.10) (HCC) EGFR STAT 11/05/2024 8:24 AM SCENE AND LIGHTING DESIGN LECTURER Chronic lymphoid leukemia, without mention of having achieved remission(204.10) (HCC) DIFFERENTIAL AUTO STAT 11/05/2024 8:2 4 AM SCENE AND LIGHTING DESIGN LECTURER Chronic lymphoid leukemia, without mention of having achieved remission(204.10) (HCC) CBC WITH AUTO DIFFERENTIAL STAT 11/05/2024 8:24 AM SCENE AND LIGHTING DESIGN LECTURER Chronic lymphoid leukemia, without mention of having achieved remission(204.10) (HCC) COMPREHENSIVE METABOLIC PANEL STAT 11/05/2024 8:24 AM SCENE AND LIGHTING DESIGN LECTURER Chronic lymphoid leukemia, without mention of having achieved remission(204.10) (HCC) PHOSPHORUS STAT 11/05/2024 8:24 AM SCENE AND LIGHTING DESIGN LECTURER Chronic lymphoid leukemia, without mention of having achieved remission(204.10) (HCC) URIC ACID STAT 11/05/2024 8:24 AM SCENE AND LIGHTING DESIGN LECTURER Chronic lymphoid leukemia, without mention of having achieved remission(204.10) (HCC) LACTATE DEHYDROGENASE Routine 11/05/2024 8:24 AM SCENE AND LIGHTING DESIGN LECTURER Chronic lymphoid leukemia, without mention of having achieved remission(204.10) (HCC) CT CHEST ABDOMEN PELVIS W CONTRAST Schedule JAZMIN, Read JAZMIN (Appt Today, Awaiting Results) 11/05/2024 7:50 AM SCENE AND LIGHTING DESIGN LECTURER CLL (chronic lymphocytic leukemia) (HCC) DIFFERENTIAL AUTO STAT 10/29/2024 8:0 7 AM SCENE AND LIGHTING DESIGN LECTURER Chronic lymphoid leukemia, without mention of having achieved remission(204.10) (HCC) CBC WITH AUTO DIFFERENTIAL STAT 10/29/2024 8:07 AM SCENE AND LIGHTING DESIGN LECTURER Chronic lymphoid leukemia, without mention of having achieved remission(204.10) (HCC) EGFR Routine 10/22/2024 8:20 AM SCENE AND LIGHTING DESIGN LECTURER CAD in [place] artery DIFFERENTIAL AUTO STAT 10/22/2024 8:2 0 AM SCENE AND LIGHTING DESIGN LECTURER Chronic lymphoid leukemia, without mention of having achieved remission(204.10) (HCC) COMPREHENSIVE METABOLIC PANEL Routine 10/22/2024 8:20 AM SCENE AND LIGHTING DESIGN LECTURER CAD in [place] artery CBC WITH AUTO DIFFERENTIAL STAT 10/22/2024 8:20 AM SCENE AND LIGHTING DESIGN LECTURER Chronic lymphoid leukemia, without mention of having achieved remission(204.10) (HCC) EGFR STAT 10/16/2024 4:56 PM SCENE AND LIGHTING DESIGN LECTURER Chronic lymphoid leukemia, without mention of having achieved remission(204.10) (HCC) BASIC METABOLIC PANEL STAT 10/16/2024 4:56 PM SCENE AND LIGHTING DESIGN LECTURER Chronic lymphoid leukemia, without mention of having achieved remission(204.10) (HCC) URIC ACID STAT 10/16/2024 4:56 PM SCENE AND LIGHTING DESIGN LECTURER Chronic lymphoid leukemia, without mention of having achieved remission(204.10) (HCC) EGFR STAT 10/16/2024 9:07 AM SCENE AND LIGHTING DESIGN LECTURER Chronic lymphoid leukemia, without mention of having achieved remission(204.10) (HCC) CBC WITHOUT DIFFERENTIAL Routine 10/16/2024 9:07 AM SCENE AND LIGHTING DESIGN LECTURER CAD in [place] artery LACTATE DEHYDROGENASE STAT 10/16/2024 9:07 AM SCENE AND LIGHTING DESIGN LECTURER Chronic lymphoid leukemia, without mention of having achieved remission(204.10) (HCC) URIC ACID STAT 10/16/2024 9:07 AM SCENE AND LIGHTING DESIGN LECTURER Chronic lymphoid leukemia, without mention of having achieved remission(204.10) (HCC) PHOSPHORUS STAT 10/16/2024 9:07 AM SCENE AND LIGHTING DESIGN LECTURER Chronic lymphoid leukemia, without mention of having achieved remission(204.10) (HCC) BASIC METABOLIC PANEL STAT 10/16/2024 9:07 AM SCENE AND LIGHTING DESIGN LECTURER Chronic lymphoid leukemia, without mention of having achieved remission(204.10) (HCC) HEPATITIS C ANTIBODY Routine 10/15/2024 9:53 AM SCENE AND LIGHTING DESIGN LECTURER CLL (chronic lymphocytic leukemia) (HCC) HEPATITIS B SURFACE ANTIGEN Routine 10/15/2024 9:53 AM SCENE AND LIGHTING DESIGN LECTURER CLL (chronic lymphocytic leukemia) (HCC) HEPATITIS B SURFACE ANTIBODY (IMMUNE STATUS) Routine 10/15/2024 9:53 AM SCENE AND LIGHTING DESIGN LECTURER CLL (chronic lymphocytic leukemia) (HCC) HEPATITIS B CORE ANTIBODY, TOTAL Routine 10/15/2024 9:53 AM SCENE AND LIGHTING DESIGN LECTURER CLL (chronic lymphocytic leukemia) (HCC) EGFR STAT 10/15/2024 7:37 AM SCENE AND LIGHTING DESIGN LECTURER Chronic lymphoid leukemia, without mention of having achieved remission(204.10) (HCC) MANUAL DIFFERENTIAL Routine 10/15/2024 7 :37 AM SCENE AND LIGHTING DESIGN LECTURER Chronic lymphoid leukemia, without mention of having achieved remission(204.10) (HCC) CBC WITH AUTO DIFFERENTIAL Routine 10/15/2024 7:37 AM SCENE AND LIGHTING DESIGN LECTURER Chronic lymphoid leukemia, without mention of having achieved remission(204.10) (HCC) COMPREHENSIVE METABOLIC PANEL STAT 10/15/2024 7:37 AM SCENE AND LIGHTING DESIGN LECTURER Chronic lymphoid leukemia, without mention of having achieved remission(204.10) (HCC) PHOSPHORUS STAT 10/15/2024 7:37 AM SCENE AND LIGHTING DESIGN LECTURER Chronic lymphoid leukemia, without mention of having achieved remission(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.10) (HCC) URIC ACID STAT 10/15/2024 7:37 AM SCENE AND LIGHTING DESIGN LECTURER Chronic lymphoid leukemia, without mention of having achieved remission(204.10) (HCC) LACTATE DEHYDROGENASE Routine 10/15/2024 7:37 AM SCENE AND LIGHTING DESIGN LECTURER Chronic lymphoid leukemia, without mention of having [...] ORDERABLES Final R esult Performing Organization Address City/[facility]/ZIP Co de Phone Number [facility] [place] [address] * (ABNORMAL) Lactate dehydrogenase (LD) (01/07/2025 8:08 AM CDT) Lactate dehydrogenase (LDH) 281(H) 100 - 250 Units/L Blood 01/07/2025 8:08 AM CDT 01/07/2025 8:20 AM CDT us Amilcar Sarabia MD LAB BLOOD ORDERABLES [facility] [place] [address] * (ABNORMAL) Comprehensive metabolic panel (01/07/2025 8:08 AM CDT) Sodium 144 135 - 145 mmol/L Potassium, pl 4.1 3.3 - 4.9 mmol/L [facility] Chloride 110 97 - 110 mmol/L [facility] CO2 24 22 - 32 mmol/L [facility] Anion gap 10 2 - 15 mmol/L [facility] BUN 41(H) 6 - 25 mg/dL [facility] Creatinine 1.55(H) 0.80 - 1.30 mg/dL [facility] Glucose 115 70 - 199 mg/dL [facility] Comment: Interpretive Data Fasting glucose >/= [...] Calcium 9.6 8.5 - 10.3 mg/dL [facility] Bilirubin, total 0.5 0.1 - 1.2 mg/dL [facility] Protein, pl 7.0 6.5 - 8.5 g/dL [facility] Albumin 4.3 3.5 - 5.0 g/dL [facility] Alk phos 120 40 - 130 Units/L [facility] ALT 39 7 - 55 Units/L [facility] AST 48 10 - 50 Units/L [facility] Comment:Hemolyzed; result ma y be falsely elevated Blood 01/07/2025 8:08 AM CDT 01/07/2025 8:20 AM CDT us Amilcar Sarabia MD LAB BLOOD ORDERABLES Final R esult [facility] [place] [address] * (ABNORMAL) Differential, auto (01/07/2025 8:05 AM CDT) Neutrophil abs 1.08(L) 1.50 - 6.50 K/cumm Comment:Testing performed by : [facility], [address] [place] [phone] Lymphocyte abs 0.41(L) 0.80 - 3.30 K/cumm [facility] Comment:Testing performed by : [facility], [address] [place] [phone] Monocyte abs 0.31 0.20 - 0.80 K/cumm [facility] Comment:Testing performed by : [facility], [address] [place] [phone] Eosinophil abs 0.04 0.00 - 0.50 K/cumm [facility] Comment:Testing performed by : [facility], [address] [place] [phone] Basophil abs 0.02 0.00 - 0.10 K/cumm [facility] Comment:Testing performed by : [facility], [address] [place] [phone] Neutrophil pct 57.9 % [facility] Comment: Interpretive Data Percent cell count reference ranges are not reported, since discordance with absolute values may lead to misinterpretation of CBC data. Current Interpretive Data was last revised on 2018. Testing performed by: [facility], [address] [place] [phone] Lymphocyte pct 22.3 % [facility] Comment: Interpretive Data Percent cell count reference ranges are not reported, since discordance with absolute values may lead to misinterpretation of CBC data. Current Interpretive Data was last revised on 2018. Testing performed by: [facility], [address] [place] [phone] Monocyte pct 16.4 % [facility] Comment: Interpretive Data Percent cell count reference ranges are not reported, since discordance with absolute values may lead to misinterpretation of CBC data. Current Interpretive Data was last revised on 2018. Testing performed by: [facility], [address] [place] [phone] Eosinophil pct 2.2 % [facility] Comment: Interpretive Data Percent cell count reference ranges are not reported, since discordance with absolute values may lead to misinterpretation of CBC data. Current Interpretive Data was last revised on 2018. Testing performed by: [facility], [address] [place] [phone] Basophil pct 1.2 % [facility] Comment: Interpretive Data Percent cell count reference ranges are not reported, since discordance with absolute values may lead to misinterpretation of CBC data. Current Interpretive Data was last revised on 2018. Testing performed by: [facility], [address] [place] [phone] Blood 01/07/2025 8:05 AM CDT 01/07/2025 8:20 AM CDT Amilcar Sarabia MD LAB BLOOD ORDERABLES Final R esult [facility] [place] [address] * (ABNORMAL) CBC with auto differential (01/07/2025 8:05 AM CDT) WBC 1.86(L) 3.80 - 9.90 K/cumm Comment:Testing performed by : [facility], [address] [place] [address] Hgb 11.7(L) 13.0 - 17.5 g/dL [facility] Comment:Testing performed by : [facility], [address] [place] [address] Hct 35.4(L) 38.9 - 50.3 % [facility] Comment:Testing performed by : [facility], [address] [place] [address] Plt 106(L) 150 - 400 K/cumm [facility] Comment:Testing performed by : [facility], [address] [place] [address] MPV 8.0 6.8 - 10.4 fL [facility] Comment:Testing performed by : [facility], [address] [place] [address] RBC 4.25(L) 4.30 - 5.80 M/cumm [facility] Comment:Testing performed by : [facility], [address] [place] [address] MCV 83.3 81.3 - 96.4 fL [facility] Comment:Testing performed by : [facility], [address] [place], [place] [phone] MCH 27.5 27.1 - 33.3 pg [facility] Comment:Testing performed by : [facility], [address] [place], [place] [phone] MCHC 33.0 32.3 - 35.7 g/dL [facility] Comment:Testing performed by : [facility], [address] [place], [place] [phone] RDW CV 23.9(H) 11.1 - 14.9 % [facility] Comment:Testing performed by : [facility], [address] [place] [address] NRBC abs 0.00 0.00 - 0.01 K/cumm [facility] Comment:Testing performed by : [facility], [address] [place] [phone] Blood 01/07/2025 8:05 AM CDT 01/07/2025 8:20 AM CDT Amilcar Sarabia MD LAB BLOOD ORDERABLES Final R esult Performing Organization Address City/[facility] Co de Phone Number [facility] [place] [address] * (ABNORMAL) Beta 2 microglobulin, serum (01/07/2025 [...] ORDERABLES Final R esult Performing Organization Address City/[facility] Co de Phone Number [facility] [place] [address] * (ABNORMAL) Differential, auto (12/10/2024 8:30 AM SCENE AND LIGHTING DESIGN LECTURER) Neutrophil abs 2.1 1.5 - 6.5 K/cumm Comment:Testing performed by : [facility], [address] [place] [phone] Lymphocyte abs 0.5(L) 0.8 - 3.3 K/cumm [facility] Comment:Testing performed by : [facility], [address] [place] [phone] Monocyte abs 0.4 0.2 - 0.8 K/cumm [facility] Comment:Testing performed by : [facility], [address] [place], [place] [phone] Eosinophil abs 0.0 0.0 - 0.5 K/cumm [facility] Comment:Testing performed by : [facility], [address] [place] [phone] Basophil abs 0.0 0.0 - 0.1 K/cumm [facility] Comment:Testing performed by : [facility], [address] [place] [phone] Neutrophil pct 67.2 % [facility] Comment: Interpretive Data Percent cell count reference ranges are not reported, since discordance with absolute values may lead to misinterpretation of CBC data. Current Interpretive Data was last revised on 2018. Testing performed by: [facility], [address] [place] [phone] Lymphocyte pct 17.3 % [facility] Comment: Interpretive Data Percent cell count reference ranges are not reported, since discordance with absolute values may lead to misinterpretation of CBC data. Current Interpretive Data was last revised on 2018. Testing performed by: [facility], [address] [place] [phone] Monocyte pct 13.5 % [facility] Comment: Interpretive Data Percent cell count reference ranges are not reported, since discordance with absolute values may lead to misinterpretation of CBC data. Current Interpretive Data was last revised on 2018. Testing performed by: [facility], [address] [place] [phone] Eosinophil pct 1.4 % [facility] Comment: Interpretive Data Percent cell count reference ranges are not reported, since discordance with absolute values may lead to misinterpretation of CBC data. Current Interpretive Data was last revised on 2018. Testing performed by: [facility], [address] [place], [place] [phone] Basophil pct 0.6 % [facility] Comment: Interpretive Data Percent cell count reference ranges are not reported, since discordance with absolute values may lead to misinterpretation of CBC data. Current Interpretive Data was last revised on 2018. Testing performed by: [facility], [address] [place] [phone] Blood 12/10/2024 8:30 AM SCENE AND LIGHTING DESIGN LECTURER 12/10/2024 8:37 AM SCENE AND LIGHTING DESIGN LECTURER Amilcar Sarabia MD LAB BLOOD ORDERABLES Final R esult [facility] Department of Laboratories [place], [place] [id number] * (ABNORMAL) CBC with auto differential (12/10/2024 8:30 AM SCENE AND LIGHTING DESIGN LECTURER) WBC 3.1(L) 3.8 - 9.9 K/cumm Comment:Testing performed by : [facility], [address] [place] [phone] Hgb 10.4(L) 13.0 - 17.5 g/dL [facility] Comment:Testing performed by : [facility], [address] [place] [address] Hct 32.7(L) 38.9 - 50.3 % [facility] Comment:Testing performed by : [facility], [address] [place] [address] Plt 132(L) 150 - 400 K/cumm [facility] Comment:Testing performed by : [facility], [address] [place], [place] [phone] MPV 8.2 6.8 - 10.4 fL [facility] Comment:Testing performed by : [facility], [address] [place], [place] [phone] RBC 4.17(L) 4.30 - 5.80 M/cumm [facility] Comment:Testing performed by : [facility], [address] [place], [place] [phone] MCV 78.3(L) 81.3 - 96.4 fL [facility] Comment:Testing performed by : [facility], [address] [place], [place] [phone] MCH 25.0(L) 27.1 - 33.3 pg [facility] Comment:Testing performed by : [facility], [address] [place], [place] [phone] MCHC 32.0(L) 32.3 - 35.7 g/dL [facility] Comment:Testing performed by : [facility], [address] [place] [address] RDW CV 18.1(H) 11.1 - 14.9 % [facility] Comment:Testing performed by : [facility], [address] [place], [place] [phone] NRBC abs 0.00 0.00 - 0.01 K/cumm [facility] Comment:Testing performed by : [facility], [address] [place] [address] Blood 12/10/2024 8:30 AM SCENE AND LIGHTING DESIGN LECTURER 12/10/2024 8:37 AM SCENE AND LIGHTING DESIGN LECTURER Amilcar Sarabia MD LAB BLOOD ORDERABLES Final R esult [facility] [place] [address] * (ABNORMAL) eGFR (12/10/2024 8:10 AM SCENE AND LIGHTING DESIGN LECTURER) Pathologist [facility] eGFR 41(L) >=60 mL/min/1. 73 m2 Comment: [...] last reviewed 2021. Blood 12/10/2024 8:10 AM SCENE AND LIGHTING DESIGN LECTURER 12/10/2024 8:16 AM SCENE AND LIGHTING DESIGN LECTURER us Amilcar Sarabia MD LAB BLOOD ORDERABLES Final R esult Performing Organization Address City/[facility]/ZIP Co de Phone Number [facility] [place] [address] * Lactate dehydrogenase (LD) (12/10/2024 8:10 AM SCENE AND LIGHTING DESIGN LECTURER) [facility] Lactate dehydrogenase (LDH) 186 100 - 250 Units/L Blood 12/10/2024 8:10 AM SCENE AND LIGHTING DESIGN LECTURER 12/10/2024 8:16 AM SCENE AND LIGHTING DESIGN LECTURER us Amilcar Sarabia MD LAB BLOOD ORDERABLES Final R esult [facility] [place] [address] * (ABNORMAL) Beta 2 microglobulin, serum (12/10/2024 8:10 AM SCENE AND LIGHTING DESIGN LECTURER) Pathologist [facility] Beta 2 Microglobulin, Serum 4.40(H) 1.00 - 2.50 mg/L Comment: Interpretive Data The Tatyana Beta-2 microglobulin assay procedure was used. Results from different manufacturers or methods may not be comparable. Serial testing should be performed using the same method. Blood 12/10/2024 8:10 AM SCENE AND LIGHTING DESIGN LECTURER 12/10/2024 8:45 AM SCENE AND LIGHTING DESIGN LECTURER Amilcar Sarabia MD LAB BLOOD ORDERABLES Final R esult [facility] [place] [address] * (ABNORMAL) Comprehensive metabolic panel (12/10/2024 8:10 AM SCENE AND LIGHTING DESIGN LECTURER) [facility] Sodium 141 135 - 145 mmol/L Potassium, pl 4.3 3.3 - 4.9 mmol/L [facility] Chloride 105 97 - 110 mmol/L [facility] CO2 28 22 - 32 mmol/L [facility] Anion gap 8 2 - 15 mmol/L [facility] BUN 33(H) 6 - 25 mg/dL [facility] Creatinine 1.71(H) 0.80 - 1.30 mg/dL [facility] Glucose 134 70 - 199 mg/dL [facility] Comment: Interpretive Data Fasting glucose >/= [...] Calcium 9.9 8.5 - 10.3 mg/dL [facility] Bilirubin, total 0.7 0.1 - 1.2 mg/dL [facility] Protein, pl 7.5 6.5 - 8.5 g/dL [facility] Albumin 4.5 3.5 - 5.0 g/dL [facility] Alk phos 95 40 - 130 Units/L [facility] ALT 17 7 - 55 Units/L [facility] AST 28 10 - 50 Units/L [facility] Blood 12/10/2024 8:10 AM SCENE AND LIGHTING DESIGN LECTURER 12/10/2024 8:16 AM SCENE AND LIGHTING DESIGN LECTURER us Amilcar Sarabia MD LAB BLOOD ORDERABLES Final R esult [facility] [place] [address] * (ABNORMAL) eGFR (11/26/2024 7:51 AM SCENE AND LIGHTING DESIGN LECTURER) eGFR 44(L) >=60 mL/min/1. 73 m2 Comment: [...] last reviewed 2021. Blood 11/26/2024 7:51 AM SCENE AND LIGHTING DESIGN LECTURER 11/26/2024 8:25 AM SCENE AND LIGHTING DESIGN LECTURER us Jolie Iraheta NP LAB BLOOD ORDE RABLES Final Result [facility] ([place]) 1 [facility] Department [place] [address] * (ABNORMAL) Differential, auto (11/26/2024 7:51 AM SCENE AND LIGHTING DESIGN LECTURER) Neutrophil abs 1.8 1.5 - 6.5 K/cumm Imm gran abs 0.0 0.0 - 0.1 K/cumm [facility] ([place]) Lymphocyte abs 0.5(L) 0.8 - 3.3 K/cumm [facility] ([place]) Monocyte abs 0.3 0.2 - 0.8 K/cumm [facility] ([place]) Eosinophil abs 0.1 0.0 - 0.5 K/cumm [facility] ([place]ANI[place]) Basophil abs 0.0 0.0 - 0.1 K/cumm [...] revised on 2018. Blood 11/26/2024 7:51 AM SCENE AND LIGHTING DESIGN LECTURER 11/26/2024 8:25 AM SCENE AND LIGHTING DESIGN LECTURER Jolie Iraheta NP LAB BLOOD ORDE ARTI Final Result [facility] ([place]) 1 [facility] Department [place] [address] * (ABNORMAL) CBC with auto differential (11/26/2024 7:51 AM SCENE AND LIGHTING DESIGN LECTURER) WBC 2.7(L) 3.8 - 9.9 K/cumm Hgb [...] [facility] ([place]) Blood 11/26/2024 7:51 AM SCENE AND LIGHTING DESIGN LECTURER 11/26/2024 8:25 AM SCENE AND LIGHTING DESIGN LECTURER Narrative [facility] ([place]) - 11/26/2024 8:28 AM SCENE AND LIGHTING DESIGN LECTURER To be drawn prior to patient taking venetoclax. Jolie Iraheta NP LAB BLOOD ORDE RABLES Final Result Performing Organization Address City/[facility]/ZIP Co de Phone Number [facility] ([place]) 1 [facility] [place] [address] * Uric acid (11/26/2024 7:51 AM SCENE AND LIGHTING DESIGN LECTURER) [facility] Uric acid 3.6 3.0 - 8.0 mg/dL Blood 11/26/2024 7:51 AM SCENE AND LIGHTING DESIGN LECTURER 11/26/2024 8:25 AM SCENE AND LIGHTING DESIGN LECTURER Narrative [facility] ([place]) - 11/26/2024 8:47 AM SCENE AND LIGHTING DESIGN LECTURER To be drawn prior to patient taking venetoclax. Jolie Iraheta LAB BLOOD ORDE RABMEAGAN Final Result Performing Organization Address [facility] Co de Phone Number [facility] ([place]ICE) [address] [place] [address] * Phosphorus (11/26/2024 7:51 AM SCENE AND LIGHTING DESIGN LECTURER) [facility] Phosphorus, pl 4.0 2.3 - 4.5 mg/dL Blood 11/26/2024 7:51 AM SCENE AND LIGHTING DESIGN LECTURER 11/26/2024 8:25 AM SCENE AND LIGHTING DESIGN LECTURER Narrative [facility] ([place]) - 11/26/2024 8:47 AM SCENE AND LIGHTING DESIGN LECTURER To be drawn prior to patient taking venetoclax. Jolie Natalia Iraheta LAB BLOOD ORDE RABLES Final Result Performing Organization Address City/[facility]/ZIP Co de Phone Number [facility] ([place]) 1 [facility] [place] [address] * (ABNORMAL) Comprehensive metabolic panel (11/26/2024 7:51 AM SCENE AND LIGHTING DESIGN LECTURER) [facility] Sodium 139 135 - 145 mmol/L Potassium, pl 4.3 3.3 - 4.9 mmol/L [facility] ([facility] Chloride 103 97 - 110 [...] [facility] ([place]) Blood 11/26/2024 7:51 AM SCENE AND LIGHTING DESIGN LECTURER 11/26/2024 8:25 AM SCENE AND LIGHTING DESIGN LECTURER Narrative [facility] ([place]) - 11/26/2024 8:47 AM SCENE AND LIGHTING DESIGN LECTURER To be drawn prior to patient taking venetoclax. Jolie Iraheta NP LAB BLOOD ORDRuiz CHI Final Result [facility] ([place]) 1 [facility] Department [place] [address] * (ABNORMAL) eGFR (11/19/2024 10:21 AM SCENE AND LIGHTING DESIGN LECTURER) eGFR 42(L) >=60 mL/min/1. 73 m2 Comment: [...] reviewed 2021. Blood 11/19/2024 10:2 1 AM SCENE AND LIGHTING DESIGN LECTURER 11/19/2024 10:24 AM SCENE AND LIGHTING DESIGN LECTURER Jolie Iraheta NP LAB BLOOD LAUREL CHI Final Result [facility] ([place]) 1 [facility] Department [place] [address] * (ABNORMAL) Differential, auto (11/19/2024 10:21 AM SCENE AND LIGHTING DESIGN LECTURER) Neutrophil abs 2.2 1.5 - 6.5 K/cumm Imm gran abs 0.0 0.0 - 0.1 K/cumm [facility] ([place]) Lymphocyte abs 0.7(L) 0.8 - 3.3 K/cumm [facility] ([place]) Monocyte abs 0.3 0.2 - 0.8 K/cumm [facility] ([place]) Eosinophil abs 0.1 0.0 - 0.5 K/cumm [facility] ([place]) Basophil abs 0.0 0.0 - 0.1 K/cumm [facility] ([place]) Neutrophil pct 65.4 % [facility] R [facility] [...] on 2018. Blood 11/19/2024 10:2 1 AM SCENE AND LIGHTING DESIGN LECTURER 11/19/2024 10:24 AM SCENE AND LIGHTING DESIGN LECTURER us Jolie Iraheta NP LAB BLOOD LAUREL CHI Final Result [facility] ([place]) 1 [facility] Department [place] [address] * (ABNORMAL) CBC with auto differential (11/19/2024 10:21 AM SCENE AND LIGHTING DESIGN LECTURER) WBC 3.3(L) 3.8 - 9.9 K/cumm Hgb [...] [facility] ([place]) Blood 11/19/2024 10:2 1 AM SCENE AND LIGHTING DESIGN LECTURER 11/19/2024 10:24 AM SCENE AND LIGHTING DESIGN LECTURER Narrative [facility] ([place]) - 11/19/2024 10:27 AM SCENE AND LIGHTING DESIGN LECTURER To be drawn prior to patient taking venetoclax. Jolie Iraheta SUPERINTENDENT OIL FIELD DRILLING LAB BLOOD LAUREL CHI Final Result [facility] ([place]) 1 [facility] Department [place] [address] * Uric acid (11/19/2024 10:21 AM SCENE AND LIGHTING DESIGN LECTURER) Uric acid 3.7 3.0 - 8.0 mg/dL Blood 11/19/2024 10:2 1 AM SCENE AND LIGHTING DESIGN LECTURER 11/19/2024 10:24 AM SCENE AND LIGHTING DESIGN LECTURER Narrative [facility] ([place]) - 11/19/2024 10:43 AM SCENE AND LIGHTING DESIGN LECTURER To be drawn prior to patient taking venetoclax. [facility] BLOOD ORDE RABLES Final Result [facility] ([place]AN[place]) 1 [facility] [place] [address] * Phosphorus (11/19/2024 10:21 AM SCENE AND LIGHTING DESIGN LECTURER) Pathologist [facility] Phosphorus, pl 4.2 2.3 - 4.5 mg/dL Blood 11/19/2024 10:2 1 AM SCENE AND LIGHTING DESIGN LECTURER 11/19/2024 10:24 AM SCENE AND LIGHTING DESIGN LECTURER Narrative [facility] ([place]ICE) - 11/19/2024 10:43 AM SCENE AND LIGHTING DESIGN LECTURER To be drawn prior to patient taking venetoclax. [facility] LAB BLOOD ORDE RABLES Final Result Performing Organization Address [facility] Co de Phone Number [facility] ([place]ICE) 1 [facility] [place] [address] * (ABNORMAL) Comprehensive metabolic panel (11/19/2024 10:21 AM SCENE AND LIGHTING DESIGN LECTURER) [facility] Sodium 141 135 - 145 mmol/L Potassium, pl 4.4 3.3 - 4.9 mmol/L [facility] Chloride 105 97 - 110 mmol/L [facility] ([place]) CO2 26 22 - 32 mmol/L [facility] ([place]) Anion gap 10 2 - 15 mmol/L [facility] ([place] BUN 42(H) 6 - 25 [...] [facility] ([place]ANICE) Blood 11/19/2024 10:2 1 AM SCENE AND LIGHTING DESIGN LECTURER 11/19/2024 10:24 AM SCENE AND LIGHTING DESIGN LECTURER Narrative [facility] ([place]) - 11/19/2024 10:43 AM SCENE AND LIGHTING DESIGN LECTURER To be drawn prior to patient taking venetoclax. Jolie Iraheta NP LAB BLOOD LAUREL CHI Final Result [facility] ([place]) 1 [facility] Department [place] [address] * (ABNORMAL) eGFR (11/13/2024 8:21 AM SCENE AND LIGHTING DESIGN LECTURER) eGFR 45(L) >=60 mL/min/1. 73 m2 Comment: [...] last reviewed 2021. Blood 11/13/2024 8:21 AM SCENE AND LIGHTING DESIGN LECTURER 11/13/2024 8:25 AM SCENE AND LIGHTING DESIGN LECTURER us Amilcar Sarabia MD LAB BLOOD ORDERABLES Final R esult Performing Organization Address City/[facility]/ZIP Co de Phone Number [facility] ([place]) 1 [facility] [place] [address] * Uric acid (11/13/2024 8:21 AM SCENE AND LIGHTING DESIGN LECTURER) Uric acid 4.1 3.0 - 8.0 mg/dL Blood 11/13/2024 8:21 AM SCENE AND LIGHTING DESIGN LECTURER 11/13/2024 8:25 AM SCENE AND LIGHTING DESIGN LECTURER Narrative [facility] ([place]) - 11/13/2024 8:57 AM SCENE AND LIGHTING DESIGN LECTURER To be drawn prior to patient taking venetoclax. us Amilcar Sarabia MD LAB BLOOD ORDERABLES Final R esult Performing Organization Address [facility] Co de Phone Number [facility] ([place]) 1 [facility] [place] [address] * Phosphorus (11/13/2024 8:21 AM SCENE AND LIGHTING DESIGN LECTURER) Phosphorus, pl 3.8 2.3 - 4.5 mg/dL Blood 11/13/2024 8:21 AM SCENE AND LIGHTING DESIGN LECTURER 11/13/2024 8:25 AM SCENE AND LIGHTING DESIGN LECTURER Narrative [facility] ([place]) - 11/13/2024 8:57 AM SCENE AND LIGHTING DESIGN LECTURER To be drawn prior to patient taking venetoclax. us Amilcar Sarabia MD LAB BLOOD ORDERABLES Final R esult Performing Organization Address City/[facility]/ZIP Co de Phone Number [facility] ([place]) 1 [facility] [place] [address] * (ABNORMAL) Comprehensive metabolic panel (11/13/2024 8:21 AM SCENE AND LIGHTING DESIGN LECTURER) Sodium 139 135 - 145 mmol/L Potassium, [...] Slightly Hemolyzed Specimen Blood 11/13/2024 8:21 AM SCENE AND LIGHTING DESIGN LECTURER 11/13/2024 8:25 AM SCENE AND LIGHTING DESIGN LECTURER Narrative [facility] ([place]) - 11/13/2024 8:57 AM SCENE AND LIGHTING DESIGN LECTURER To be drawn prior to patient taking venetoclax. us Amilcar Sarabia MD LAB BLOOD ORDERABLES Final R esult [facility] ([place]) 1 [facility] Department [place] [address] * (ABNORMAL) eGFR (11/12/2024 3:30 PM SCENE AND LIGHTING DESIGN LECTURER) eGFR 39(L) >=60 mL/min/1. 73 m2 Comment: [...] last reviewed 2021. Blood 11/12/2024 3:30 PM SCENE AND LIGHTING DESIGN LECTURER 11/12/2024 3:30 PM SCENE AND LIGHTING DESIGN LECTURER us Jolie Iraheta NP LAB BLOOD ORDE RABLES Final Result [facility] One [facility] [place] [address] * Uric acid (11/12/2024 3:30 PM SCENE AND LIGHTING DESIGN LECTURER) Uric acid 4.0 3.0 - 8.0 mg/dL Blood 11/12/2024 3:30 PM SCENE AND LIGHTING DESIGN LECTURER 11/12/2024 3:30 PM SCENE AND LIGHTING DESIGN LECTURER Narrative [facility] - 11/12/2024 3:50 PM SCENE AND LIGHTING DESIGN LECTURER To be drawn 6-8 hours after venetoclax dose on day 1. [facility] Final Result Performing Organization Address [facility] Co de Phone Number [facility] [place] [address] * Phosphorus (11/12/2024 3:30 PM SCENE AND LIGHTING DESIGN LECTURER) Pathologist [facility] Phosphorus, pl 3.5 2.3 - 4.5 mg/dL Blood 11/12/2024 3:30 PM SCENE AND LIGHTING DESIGN LECTURER 11/12/2024 3:30 PM SCENE AND LIGHTING DESIGN LECTURER Narrative [facility] - 11/12/2024 3:50 PM SCENE AND LIGHTING DESIGN LECTURER To be drawn 6-8 hours after venetoclax dose on day 1. [facility] LAB [facility]LOOD [facility] Final Result Performing Organization Address [facility] [place] [address] * (ABNORMAL) Basic metabolic panel (11/12/2024 3:30 PM SCENE AND LIGHTING DESIGN LECTURER) [facility] Sodium 143 135 - 145 mmol/L Potassium, pl 4.1 3.3 - 4.9 mmol/L [facility] Chloride 109 97 - 110 mmol/L [facility] CO2 30 22 - 32 mmol/L [facility] Anion gap 4 2 - 15 mmol/L [facility] BUN 37(H) 6 - 25 mg/dL [facility] Creatinine 1.77(H) 0.80 - 1.30 mg/dL [facility] Glucose 120 70 - 199 mg/dL [facility] Comment: Interpretive Data Fasting glucose >/= [...] Calcium 8.8 8.5 - 10.3 mg/dL [facility] Blood 11/12/2024 3:30 PM SCENE AND LIGHTING DESIGN LECTURER 11/12/2024 3:30 PM SCENE AND LIGHTING DESIGN LECTURER Narrative [facility] - 11/12/2024 3:50 PM SCENE AND LIGHTING DESIGN LECTURER To be drawn 6-8 hours after venetoclax dose on day 1. Jolie Iraheta NP LAB BLOOD ORDRuiz CHI Final Result [facility] One [facility] [place] [address] * (ABNORMAL) eGFR (11/12/2024 7:48 AM SCENE AND LIGHTING DESIGN LECTURER) eGFR 34(L) >=60 mL/min/1. 73 m2 Comment: [...] last reviewed 2021. Blood 11/12/2024 7:48 AM SCENE AND LIGHTING DESIGN LECTURER 11/12/2024 8:04 AM SCENE AND LIGHTING DESIGN LECTURER Jolie Iraheta SUPERINTENDENT OIL FIELD DRILLING LAB BLOOD LAUREL CHI Final Result [facility]EN CERRATO One [facility] [place] [address] * (ABNORMAL) Differential, auto (11/12/2024 7:48 AM SCENE AND LIGHTING DESIGN LECTURER) Neutrophil abs 1.5 1.5 - 6.5 K/cumm Comment:Testing performed by : [facility], [address] [place] [address] Lymphocyte abs 0.6(L) 0.8 - 3.3 K/cumm [facility]ERNER BJ Comment:Testing performed by : [facility], [address] [place], [place] [phone] Monocyte abs 0.3 0.2 - 0.8 K/cumm CERNER BJ Comment:Testing performed by : [facility], [address] [place], [place] [phone] Eosinophil abs 0.1 0.0 - 0.5 K/cumm CERNER BJ Comment:Testing performed by : [facility], [address] [place] [phone] Basophil abs 0.0 0.0 - 0.1 K/cumm CERNER BJ Comment:Testing performed by : [facility], [address] [place] [phone] Neutrophil pct 61.0 % [facility]ER [facility] Comment: Interpretive Data Percent cell count reference ranges are not reported, since discordance with absolute values may lead to misinterpretation of CBC data. Current Interpretive Data was last revised on 2018. Testing performed by: [facility], [address] [place], [place] [phone] Lymphocyte pct 23.0 % [facility] Comment: Interpretive Data Percent cell count reference ranges are not reported, since discordance with absolute values may lead to misinterpretation of CBC data. Current Interpretive Data was last revised on 2018. Testing performed by: [facility], [address] [place] [phone] Monocyte pct 10.9 % [facility] Comment: Interpretive Data Percent cell count reference ranges are not reported, since discordance with absolute values may lead to misinterpretation of CBC data. Current Interpretive Data was last revised on 2018. Testing performed by: [facility], [address] [place] [phone] Eosinophil pct 4.2 % [facility] Comment: Interpretive Data Percent cell count reference ranges are not reported, since discordance with absolute values may lead to misinterpretation of CBC data. Current Interpretive Data was last revised on 2018. Testing performed by: [facility], [address] [place] [phone] Basophil pct 0.9 % [facility] Comment: Interpretive Data Percent cell count reference ranges are not reported, since discordance with absolute values may lead to misinterpretation of CBC data. Current Interpretive Data was last revised on 2018. Testing performed by: [facility], [address] [place] [phone] Blood 11/12/2024 7:48 AM SCENE AND LIGHTING DESIGN LECTURER 11/12/2024 7:56 AM SCENE AND LIGHTING DESIGN LECTURER us Jolie Iraheta NP LAB BLOOD ORDE RABLES Final Result [facility] One [facility] [place] [address] * (ABNORMAL) Iron profile w/ IBC (11/12/2024 7:48 AM SCENE AND LIGHTING DESIGN LECTURER) Iron 27(L) 50 - 150 mcg/dL TIBC 407(H) 250 - 400 mcg/dL [facility] Transferrin saturation 7(L) 20 - 50 % [facility] Blood 11/12/2024 7:48 AM SCENE AND LIGHTING DESIGN LECTURER 11/12/2024 8:04 AM SCENE AND LIGHTING DESIGN LECTURER us Amilcar Sarabia MD LAB BLOOD ORDERABLES Final R esult [facility] One [facility] [place] [address] * (ABNORMAL) CBC with auto differential (11/12/2024 7:48 AM SCENE AND LIGHTING DESIGN LECTURER) WBC 2.4(L) 3.8 - 9.9 K/cumm Comment:Testing performed by : [facility], [address] [place] [address] Hgb 9.3(L) 13.0 - 17.5 g/dL [facility]ER BJ Comment:Testing performed by : [facility], [address] [place] [address] Hct 29.0(L) 38.9 - 50.3 % [facility]ER BJ Comment:Testing performed by : [facility], [address] [place] [address] Plt 112(L) 150 - 400 K/cumm CERCAROLINA BJ Comment:Testing performed by : [facility], [address] [place] [address] MPV 7.7 6.8 - 10.4 fL [facility]J Comment:Testing performed by : [facility], [address] [place] [address] RBC 3.67(L) 4.30 - 5.80 M/cumm CERNER BJ Comment:Testing performed by : [facility], [address] [place] [address] MCV 79.1(L) 81.3 - 96.4 fL [facility] BJ Comment:Testing performed by : [facility], [address] [place] [address] MCH 25.3(L) 27.1 - 33.3 pg [facility]ER BJ Comment:Testing performed by : [facility], [address] [place] [address] MCHC 31.9(L) 32.3 - 35.7 g/dL [facility]J Comment:Testing performed by : [facility], [address] [place] [phone] RDW CV 16.6(H) 11.1 - 14.9 % [facility] Comment:Testing performed by : [facility], [address] [place] [phone] NRBC abs 0.00 0.00 - 0.01 K/cumm [facility] Comment:Testing performed by : [facility], [address] [place] [phone] Blood 11/12/2024 7:48 AM SCENE AND LIGHTING DESIGN LECTURER 11/12/2024 7:56 AM SCENE AND LIGHTING DESIGN LECTURER Narrative [facility] - 11/12/2024 8:02 AM SCENE AND LIGHTING DESIGN LECTURER To be drawn prior to patient taking venetoclax. [facility] Natalia Smithflor LAB BLOOD ORDE RABLES Final Result [facility] [place] [address] * Uric acid (11/12/2024 7:48 AM SCENE AND LIGHTING DESIGN LECTURER) Uric acid 4.2 3.0 - 8.0 mg/dL Blood 11/12/2024 7:48 AM SCENE AND LIGHTING DESIGN LECTURER 11/12/2024 8:04 AM SCENE AND LIGHTING DESIGN LECTURER Narrative [facility] - 11/12/2024 8:30 AM SCENE AND LIGHTING DESIGN LECTURER To be drawn 6-8 hours after venetoclax dose on day 1. [facility] LAB BLOOD ORDE RABLES Final Result [facility] [place] [address] * Phosphorus (11/12/2024 7:48 AM SCENE AND LIGHTING DESIGN LECTURER) Phosphorus, pl 4.4 2.3 - 4.5 mg/dL Blood 11/12/2024 7:48 AM SCENE AND LIGHTING DESIGN LECTURER 11/12/2024 8:04 AM SCENE AND LIGHTING DESIGN LECTURER Narrative [facility] - 11/12/2024 8:30 AM SCENE AND LIGHTING DESIGN LECTURER To be drawn 6-8 hours after venetoclax dose on day 1. Jolie Iraheta SUPERINTENDENT OIL FIELD DRILLING LAB BLOOD ORDE RABMEAGAN Final Result Performing Organization Address [facility] Co de Phone Number [facility] [place] [address] * Lactate dehydrogenase (LD) (11/12/2024 7:48 AM SCENE AND LIGHTING DESIGN LECTURER) Lactate dehydrogenase (LDH) 176 100 - 250 Units/L Blood 11/12/2024 7:48 AM SCENE AND LIGHTING DESIGN LECTURER 11/12/2024 8:04 AM SCENE AND LIGHTING DESIGN LECTURER Narrative [facility] - 11/12/2024 8:30 AM SCENE AND LIGHTING DESIGN LECTURER To be drawn prior to patient taking venetoclax. Jolie Iraheta LAB BLOOD ORDE RABMEAGAN Final Result Performing Organization Address [facility] [place] [address] * (ABNORMAL) Ferritin (11/12/2024 7:48 AM SCENE AND LIGHTING DESIGN LECTURER) Pathologist [facility] Ferritin 23(L) 30 - 400 ng/mL Blood 11/12/2024 7:48 AM SCENE AND LIGHTING DESIGN LECTURER 11/12/2024 8:04 AM SCENE AND LIGHTING DESIGN LECTURER Amilcar Sarabia MD LAB BLOOD ORDERABLES Final R esult Performing Organization Address [facility] Co de Phone Number [place], [place] [id number] * (ABNORMAL) Comprehensive metabolic panel (11/12/2024 7:48 AM SCENE AND LIGHTING DESIGN LECTURER) Sodium 144 135 - 145 mmol/L Potassium, pl 5.1(H) 3.3 - 4.9 mmol/L [facility] Chloride 109 97 - 110 mmol/L [facility] CO2 29 22 - 32 mmol/L [facility] Anion gap 6 2 - 15 mmol/L [facility] BUN 40(H) 6 - 25 mg/dL [facility] Creatinine 2.01(H) 0.80 - 1.30 mg/dL [facility] Glucose 112 70 - 199 mg/dL [facility] Comment: Interpretive Data Fasting glucose >/= [...] Calcium 9.5 8.5 - 10.3 mg/dL [facility] Bilirubin, total 0.3 0.1 - 1.2 mg/dL [facility] Protein, pl 6.8 6.5 - 8.5 g/dL [facility] Albumin 4.0 3.5 - 5.0 g/dL [facility] Alk phos 103 40 - 130 Units/L [facility] ALT 24 7 - 55 Units/L [facility] AST 33 10 - 50 Units/L [facility] Blood 11/12/2024 7:48 AM SCENE AND LIGHTING DESIGN LECTURER 11/12/2024 8:04 AM SCENE AND LIGHTING DESIGN LECTURER Narrative [facility] - 11/12/2024 8:30 AM SCENE AND LIGHTING DESIGN LECTURER To be drawn prior to patient taking venetoclax. us Jolie Iraheta NP LAB BLOOD LAUREL CHI Final Result [facility] One [facility] [place] [address] * (ABNORMAL) eGFR (11/06/2024 9:10 AM SCENE AND LIGHTING DESIGN LECTURER) eGFR 41(L) >=60 mL/min/1. 73 m2 Comment: [...] last reviewed 2021. Blood 11/06/2024 9:10 AM SCENE AND LIGHTING DESIGN LECTURER 11/06/2024 9:37 AM SCENE AND LIGHTING DESIGN LECTURER us Amilcar Sarabia MD LAB BLOOD ORDERABLES Final R esult [facility] ([place]) 1 [facility] Department of Laboratories [place], [place] [id number] * (ABNORMAL) Differential, auto (11/06/2024 9:10 AM SCENE AND LIGHTING DESIGN LECTURER) Pathologist [facility] Neutrophil abs 1.4(L) 1.5 - 6.5 K/cumm Imm gran abs 0.0 0.0 - 0.1 K/cumm [facility] ([place]) Lymphocyte abs 0.6(L) 0.8 - 3.3 K/cumm [facility] ([place]) Monocyte abs 0.2 0.2 - 0.8 K/cumm [facility] ([place]) Eosinophil abs 0.1 0.0 - 0.5 K/cumm [facility] ([place]) Basophil abs 0.0 0.0 - 0.1 K/cumm [facility] ([place]) Neutrophil pct 61.3 % [facility] ([place]) Comment: Interpretive Data Percent cell count reference [...] revised on 2018. Blood 11/06/2024 9:10 AM SCENE AND LIGHTING DESIGN LECTURER 11/06/2024 9:37 AM SCENE AND LIGHTING DESIGN LECTURER us Amilcar Sarabia MD LAB BLOOD ORDERABLES Final R esult [facility] ([place]ANICE) 1 [facility] Department of Laboratories [place], [place] [id number] * (ABNORMAL) CBC with auto differential (11/06/2024 9:10 AM SCENE AND LIGHTING DESIGN LECTURER) WBC 2.4(L) 3.8 - 9.9 K/cumm Hgb [...] [facility] ([place]ICE) Blood 11/06/2024 9:10 AM SCENE AND LIGHTING DESIGN LECTURER 11/06/2024 9:37 AM SCENE AND LIGHTING DESIGN LECTURER Narrative [facility] ([place]) - 11/06/2024 9:41 AM SCENE AND LIGHTING DESIGN LECTURER To be drawn prior to patient taking venetoclax. us Amilcar Sarabia MD LAB BLOOD ORDERABLES Final R esult Performing Organization Address [facility] Co de Phone Number [facility] (JANICE) 1 [facility] [place] [address] * Uric acid (11/06/2024 9:10 AM SCENE AND LIGHTING DESIGN LECTURER) Uric acid 3.5 3.0 - 8.0 mg/dL Blood 11/06/2024 9:10 AM SCENE AND LIGHTING DESIGN LECTURER 11/06/2024 9:37 AM SCENE AND LIGHTING DESIGN LECTURER Narrative [facility] ([place]ANICE) - 11/06/2024 10:06 AM SCENE AND LIGHTING DESIGN LECTURER To be drawn 6-8 hours after venetoclax dose on day 1. us Amilcar Sarabia MD LAB BLOOD ORDERABLES Final R esult [facility]EN AV[facility]) 1 [place] [address] * Phosphorus (11/06/2024 9:10 AM SCENE AND LIGHTING DESIGN LECTURER) Pathologist [facility] Phosphorus, pl 3.9 2.3 - 4.5 mg/dL Blood 11/06/2024 9:10 AM SCENE AND LIGHTING DESIGN LECTURER 11/06/2024 9:37 AM SCENE AND LIGHTING DESIGN LECTURER Narrative BEN OneillJANICE) - 11/06/2024 10:06 AM SCENE AND LIGHTING DESIGN LECTURER To be drawn 6-8 hours after venetoclax dose on day 1. Amilcar Sarabia MD LAB BLOOD ORDERABLES Final R esult Performing Organization Address [facility] Co de Phone Number BEN OneillWALDRON) 1 [place] [address] * Lactate dehydrogenase (LD) (11/06/2024 9:10 AM SCENE AND LIGHTING DESIGN LECTURER) [facility] Lactate dehydrogenase (LDH) 186 100 - 250 Units/L Blood 11/06/2024 9:10 AM SCENE AND LIGHTING DESIGN LECTURER 11/06/2024 9:37 AM SCENE AND LIGHTING DESIGN LECTURER Narrative BEN OneillJANICE) - 11/06/2024 10:08 AM SCENE AND LIGHTING DESIGN LECTURER To be drawn prior to patient taking venetoclax. Amilcar Sarabia MD LAB BLOOD ORDERABLES Final R esult Performing Organization Address [facility] Co de Phone Number BEN OneillWALDRON) 1 [facility] [place] [address] * (ABNORMAL) Beta 2 microglobulin, serum (11/06/2024 9:10 AM SCENE AND LIGHTING DESIGN LECTURER) Pathologist [facility] Beta 2 Microglobulin, Serum 5.61(H) 1.21 - 2.70 mcg/mL Block ref Lab Comment: Test Performed by: [facility] [address] [place] [address] Heat Engineering Teacher: Sammy Jimenez Ph.D.; CLIA# [id number] Blood 11/06/2024 9:10 AM SCENE AND LIGHTING DESIGN LECTURER 11/06/2024 9:37 AM SCENE AND LIGHTING DESIGN LECTURER Amilcar Sarabia MD LAB BLOOD ORDERABLES Final R esult [facility] (JANICE) 1 [facility] [place] [address] [place] [facility] * (ABNORMAL) Comprehensive metabolic panel (11/06/2024 9:10 AM SCENE AND LIGHTING DESIGN LECTURER) Sodium 143 135 - 145 mmol/L Potassium, [...] [facility] (JANICE) Blood 11/06/2024 9:10 AM SCENE AND LIGHTING DESIGN LECTURER 11/06/2024 9:37 AM SCENE AND LIGHTING DESIGN LECTURER Narrative [facility] (JANICE) - 11/06/2024 10:06 AM SCENE AND LIGHTING DESIGN LECTURER To be drawn prior to patient taking venetoclax. us Amilcar Sarabia MD LAB BLOOD ORDERABLES Final R esult Performing Organization Address City/[facility]/ZIP Co de Phone Number BEN OLIVAS (JANICE) 1 [facility] Department [place] [address] * (ABNORMAL) eGFR (11/05/2024 2:43 PM SCENE AND LIGHTING DESIGN LECTURER) eGFR 37(L) >=60 mL/min/1. 73 m2 Comment: [...] was last reviewed 2021. Testing performed by: [facility], [address] [place] [address], [place]., [address] Blood 11/05/2024 2:43 PM SCENE AND LIGHTING DESIGN LECTURER 11/05/2024 7:16 PM SCENE AND LIGHTING DESIGN LECTURER us Jolie Iraheta NP LAB BLOOD MADIE ARTI Final Result BEN OLIVAS (JANICE) 1 [facility] Department [place] [address] * Uric acid (11/05/2024 2:43 PM SCENE AND LIGHTING DESIGN LECTURER) Uric acid 3.6 3.0 - 8.0 mg/dL Comment:Testing performed by : [facility], [address] [place] [address]., [address] Blood 11/05/2024 2:43 PM SCENE AND LIGHTING DESIGN LECTURER 11/05/2024 7:05 PM SCENE AND LIGHTING DESIGN LECTURER Narrative BEN OLIVAS (JANICE) - 11/05/2024 7:38 PM SCENE AND LIGHTING DESIGN LECTURER 6-8 hours post venetoclax dose. [facility] ORDE RABLES Final Result Performing Organization Address City/[facility]/ZIP Co de Phone Number BEN OLIVAS (JANICE) 1 [place] [address] * Phosphorus (11/05/2024 2:43 PM SCENE AND LIGHTING DESIGN LECTURER) Pathologist [facility] Phosphorus, pl 4.0 2.3 - 4.5 mg/dL Comment:Testing performed by : [facility], [address] [place] [address]., [address] Blood 11/05/2024 2:43 PM SCENE AND LIGHTING DESIGN LECTURER 11/05/2024 7:05 PM SCENE AND LIGHTING DESIGN LECTURER Narrative BEN OLIVAS (JANICE) - 11/05/2024 7:38 PM SCENE AND LIGHTING DESIGN LECTURER 6-8 hours post venetoclax dose. Replaced by [facility] [employer] LAB BLOOD ORDE RABLES Final Result BEN OLIVAS (JANICE) 1 [place], [place] [id number] * (ABNORMAL) Basic metabolic panel (11/05/2024 2:43 PM SCENE AND LIGHTING DESIGN LECTURER) Pathologist [facility] Sodium 142 135 - 145 mmol/L Comment:Testing performed by : [facility], [address] [place] [address]., [address] Potassium, pl 4.2 3.3 - 4.9 mmol/L [facility] (JANICE) Comment:Testing performed by : [facility], [address] [place] [address]., [address] Chloride 106 97 - 110 mmol/L [facility] (JANICE) Comment:Testing performed by : [facility], [address] [place] [address]., [address] CO2 26 22 - 32 mmol/L [facility] (JANICE) Comment:Testing performed by : [address], [address] Anion gap 10 2 - 15 mmol/L [facility] (JANICE) Comment:Testing performed by : [address], [address] BUN 30(H) 6 - 25 mg/dL [facility] (JANICE) Comment:Testing performed by : [address], [address] Creatinine 1.86(H) 0.80 - 1.30 mg/dL [facility] (JANICE) Comment:Testing performed by : [facility], [address] [place] [address], [address] Glucose 111 70 - 199 mg/dL CERNER [...] was last revised 2022. Testing performed by: [address] [address] Calcium 9.2 8.5 - 10.3 mg/dL [facility] (JANICE) Comment:Testing performed by : [address] [address] Blood 11/05/2024 2:43 PM SCENE AND LIGHTING DESIGN LECTURER 11/05/2024 7:05 PM SCENE AND LIGHTING DESIGN LECTURER Narrative [facility] (JANICE) - 11/05/2024 7:38 PM SCENE AND LIGHTING DESIGN LECTURER 6-8 hours post venetoclax dose. us Jolie Iraheta NP LAB BLOOD ORDE RABLES Final Result BEN OLIVAS (JANICE) 1 [facility] Department [place] [address] * (ABNORMAL) eGFR (11/05/2024 8:24 AM SCENE AND LIGHTING DESIGN LECTURER) eGFR 39(L) >=60 mL/min/1. 73 m2 Comment: [...] last reviewed 2021. Blood 11/05/2024 8:24 AM SCENE AND LIGHTING DESIGN LECTURER 11/05/2024 8:28 AM SCENE AND LIGHTING DESIGN LECTURER us Amilcar Sarabia MD LAB BLOOD ORDERABLES Final R esult [facility] [place] [address] * (ABNORMAL) Differential, auto (11/05/2024 8:24 AM SCENE AND LIGHTING DESIGN LECTURER) Neutrophil abs 1.4(L) 1.5 - 6.5 K/cumm Comment:Testing performed by : [facility], [address] [place] [phone] Lymphocyte abs 0.6(L) 0.8 - 3.3 K/cumm [facility] Comment:Testing performed by : [facility], [address] [place] [phone] Monocyte abs 0.2 0.2 - 0.8 K/cumm [facility] Comment:Testing performed by : [facility], [address] [place] [phone] Eosinophil abs 0.1 0.0 - 0.5 K/cumm [facility] Comment:Testing performed by : [facility], [address] [place] [phone] Basophil abs 0.0 0.0 - 0.1 K/cumm [facility] Comment:Testing performed by : [facility], [address] [place] [phone] Neutrophil pct 60.1 % [facility] Comment: Interpretive Data Percent cell count reference ranges are not reported, since discordance with absolute values may lead to misinterpretation of CBC data. Current Interpretive Data was last revised on 2018. Testing performed by: [facility], [address] [place] [phone] Lymphocyte pct 26.6 % [facility] Comment: Interpretive Data Percent cell count reference ranges are not reported, since discordance with absolute values may lead to misinterpretation of CBC data. Current Interpretive Data was last revised on 2018. Testing performed by: [facility], [address] [place] [phone] Monocyte pct 7.8 % [facility] Comment: Interpretive Data Percent cell count reference ranges are not reported, since discordance with absolute values may lead to misinterpretation of CBC data. Current Interpretive Data was last revised on 2018. Testing performed by: [facility], [address] [place] [phone] Eosinophil pct 4.5 % [facility] Comment: Interpretive Data Percent cell count reference ranges are not reported, since discordance with absolute values may lead to misinterpretation of CBC data. Current Interpretive Data was last revised on 2018. Testing performed by: [facility], [address] [place] [address] Basophil pct 1.0 % [facility] Comment: Interpretive Data Percent cell count reference ranges are not reported, since discordance with absolute values may lead to misinterpretation of CBC data. Current Interpretive Data was last revised on 2018. Testing performed by: [facility], [address] [place] [address] Blood 11/05/2024 8:24 AM SCENE AND LIGHTING DESIGN LECTURER 11/05/2024 8:27 AM SCENE AND LIGHTING DESIGN LECTURER Amilcar Sarabia MD LAB BLOOD ORDERABLES Final R esult [facility] Department [place] [address] * (ABNORMAL) CBC with auto differential (11/05/2024 8:24 AM SCENE AND LIGHTING DESIGN LECTURER) WBC 2.3(L) 3.8 - 9.9 K/cumm Comment:Testing performed by : [facility], [address] [place] [address] Hgb 9.0(L) 13.0 - 17.5 g/dL BEN CERRATO Comment:Testing performed by : [facility], [address] [place] [address] Hct 28.7(L) 38.9 - 50.3 % BEN CERRATO Comment:Testing performed by : [facility], [address] [place] [address] Plt 77(L) 150 - 400 K/cumm [facility] Comment:Testing performed by : [facility], [address] [place] [address] MPV 7.6 6.8 - 10.4 fL CERCAROLINA CERRATO Comment:Testing performed by : [facility], [address] [place] [address] RBC 3.61(L) 4.30 - 5.80 M/cumm [facility] Comment:Testing performed by : [facility], [address] [place] [address] MCV 79.4(L) 81.3 - 96.4 fL [facility] Comment:Testing performed by : [facility], [address] [place] [address] MCH 24.9(L) 27.1 - 33.3 pg [facility] Comment:Testing performed by : [facility], [address] [place] [address] MCHC 31.3(L) 32.3 - 35.7 g/dL [facility] Comment:Testing performed by : [facility], [address] [place] [address] RDW CV 16.3(H) 11.1 - 14.9 % [facility] Comment:Testing performed by : [facility], [address] [place] [address] NRBC abs 0.00 0.00 - 0.01 K/cumm [facility] Comment:Testing performed by : [facility], [address] [place] [address] Blood 11/05/2024 8:24 AM SCENE AND LIGHTING DESIGN LECTURER 11/05/2024 8:27 AM SCENE AND LIGHTING DESIGN LECTURER Narrative [facility] - 11/05/2024 8:35 AM SCENE AND LIGHTING DESIGN LECTURER To be drawn prior to patient taking venetoclax. us Amilcar Sarabia MD LAB BLOOD ORDERABLES Final R esult [facility] Department of Laboratories [place], [place] [id number] * Uric acid (11/05/2024 8:24 AM SCENE AND LIGHTING DESIGN LECTURER) Uric acid 3.3 3.0 - 8.0 mg/dL Blood 11/05/2024 8:24 AM SCENE AND LIGHTING DESIGN LECTURER 11/05/2024 8:28 AM SCENE AND LIGHTING DESIGN LECTURER Narrative [facility] 11/05/2024 9:06 AM SCENE AND LIGHTING DESIGN LECTURER To be drawn prior to patient taking venetoclax. Amilcar Sarabia MD LAB BLOOD ORDERABLES Final R esult Performing Organization Address [facility] Co de Phone Number [facility] [place] [address] * Phosphorus (11/05/2024 8:24 AM SCENE AND LIGHTING DESIGN LECTURER) Pathologist [facility] Phosphorus, pl 3.9 2.3 - 4.5 mg/dL Blood 11/05/2024 8:24 AM SCENE AND LIGHTING DESIGN LECTURER 11/05/2024 8:28 AM SCENE AND LIGHTING DESIGN LECTURER Narrative [facility] 11/05/2024 9:06 AM SCENE AND LIGHTING DESIGN LECTURER To be drawn prior to patient taking venetoclax. Amilcar Sarabia MD LAB BLOOD ORDERABLES Final R esult Performing Organization Address [facility] Co de Phone Number [facility] [place] [address] * Lactate dehydrogenase (LD) (11/05/2024 8:24 AM SCENE AND LIGHTING DESIGN LECTURER) [facility] Lactate dehydrogenase (LDH) 186 100 - 250 Units/L Blood 11/05/2024 8:24 AM SCENE AND LIGHTING DESIGN LECTURER 11/05/2024 8:28 AM SCENE AND LIGHTING DESIGN LECTURER Narrative [facility] 11/05/2024 9:06 AM SCENE AND LIGHTING DESIGN LECTURER To be drawn prior to patient taking venetoclax. Amilcar Sarabia MD LAB BLOOD ORDERABLES Final R esult Performing Organization Address [facility] Co de Phone Number [facility] [place] [address] * (ABNORMAL) Comprehensive metabolic panel (11/05/2024 8:24 AM SCENE AND LIGHTING DESIGN LECTURER) [facility] Sodium 141 135 - 145 mmol/L Potassium, pl 4.1 3.3 - 4.9 mmol/L [facility] Chloride 108 97 - 110 mmol/L [facility] CO2 28 22 - 32 mmol/L [facility] Anion gap 5 2 - 15 mmol/L [facility] BUN 29(H) 6 - 25 mg/dL [facility] Creatinine 1.78(H) 0.80 - 1.30 mg/dL [facility] Glucose 109 70 - 199 mg/dL [facility] Comment: Interpretive Data Fasting glucose >/= [...] Calcium 9.2 8.5 - 10.3 mg/dL [facility] Bilirubin, total 0.5 0.1 - 1.2 mg/dL [facility] Protein, pl 6.5 6.5 - 8.5 g/dL [facility] Albumin 3.9 3.5 - 5.0 g/dL [facility] Alk phos 92 40 - 130 Units/L [facility] ALT 22 7 - 55 Units/L [facility] AST 30 10 - 50 Units/L [facility] Blood 11/05/2024 8:24 AM SCENE AND LIGHTING DESIGN LECTURER 11/05/2024 8:28 AM SCENE AND LIGHTING DESIGN LECTURER Narrative [facility] - 11/05/2024 9:06 AM SCENE AND LIGHTING DESIGN LECTURER To be drawn prior to patient taking venetoclax. us Amilcar Sarabia MD LAB BLOOD ORDERABLES Final R esult [facility] [place] [address] * CT chest abdomen pelvis with contrast (11/05/2024 7:50 AM SCENE AND LIGHTING DESIGN LECTURER) Anatomical Region Laterality Modality Body N/A Computed Tomogra phy 11/05/2024 9:42 AM SCENE AND LIGHTING DESIGN LECTURER Impressions 11/05/2024 12:18 PM SCENE AND LIGHTING DESIGN LECTURER 1. Interval slight decrease in size of [...] Ronel Matute M.D. Narrative 11/05/2024 12:18 PM SCENE AND LIGHTING DESIGN LECTURER EXAMINATION: Computed tomography of the chest, abdomen [...] * (ABNORMAL) Differential, auto (10/29/2024 8:07 AM SCENE AND LIGHTING DESIGN LECTURER) Neutrophil abs 2.7 1.5 - 6.5 K/cumm Comment:Testing performed by : [facility], [address] [place], [place] [id number] Lymphocyte abs 0.5(L) 0.8 - 3.3 K/cumm [facility] Comment:Testing performed by : [facility], [address] [place], [place] [id number] Monocyte abs 0.2 0.2 - 0.8 K/cumm [facility] Comment:Testing performed by : [facility], [address] [place], [place] [id number] Eosinophil abs 0.1 0.0 - 0.5 K/cumm [facility] Comment:Testing performed by : [facility], [address] [place] [address] Basophil abs 0.0 0.0 - 0.1 K/cumm [facility] Comment:Testing performed by : [facility], [address] [place] [address] Neutrophil pct 76.3 % [facility] Comment: Interpretive Data Percent cell count reference ranges are not reported, since discordance with absolute values may lead to misinterpretation of CBC data. Current Interpretive Data was last revised on 2018. Testing performed by: [facility], [address] [place] [address] Lymphocyte pct 15.2 % [facility] Comment: Interpretive Data Percent cell count reference ranges are not reported, since discordance with absolute values may lead to misinterpretation of CBC data. Current Interpretive Data was last revised on 2018. Testing performed by: [facility], [address] [place] [phone] Monocyte pct 5.6 % [facility] CERRATO Comment: Interpretive Data Percent cell count reference ranges are not reported, since discordance with absolute values may lead to misinterpretation of CBC data. Current Interpretive Data was last revised on 2018. Testing performed by: [facility], [address] [place] [phone] Eosinophil pct 1.9 % [facility]NE CERRAT[facility] Comment: Interpretive Data Percent cell count reference ranges are not reported, since discordance with absolute values may lead to misinterpretation of CBC data. Current Interpretive Data was last revised on 2018. Testing performed by: [facility], [address] [place] [phone] Basophil pct 1.0 % [facility] CERRATO Comment: Interpretive Data Percent cell count reference ranges are not reported, since discordance with absolute values may lead to misinterpretation of CBC data. Current Interpretive Data was last revised on 2018. Testing performed by: [facility], [address] [place] [phone] Blood 10/29/2024 8:07 AM SCENE AND LIGHTING DESIGN LECTURER 10/29/2024 8:10 AM SCENE AND LIGHTING DESIGN LECTURER Amilcar Sarabia MD LAB BLOOD ORDERABLES Final R esult [facility] [place] [address] * (ABNORMAL) CBC with auto differential (10/29/2024 8:07 AM SCENE AND LIGHTING DESIGN LECTURER) WBC 3.5(L) 3.8 - 9.9 K/cumm Comment:Testing performed by : [facility], [address] [place] [phone] Hgb 8.7(L) 13.0 - 17.5 g/dL [facility] CERRAT[facility] Comment:Testing performed by : [facility], [address] [place] [phone] Hct 27.9(L) 38.9 - 50.3 % [facility]EN [facility] Comment:Testing performed by : [facility], [address] [place], [place] [phone] Plt 83(L) 150 - 400 K/cumm [facility] Comment:Testing performed by : [facility], [address] [place], [place] [phone] MPV 7.3 6.8 - 10.4 fL [facility] C[facility] Comment:Testing performed by : [facility], [address] [place], [place] [phone] RBC 3.49(L) 4.30 - 5.80 M/cumm [facility] Comment:Testing performed by : [facility], [address] [place], [place] [phone] MCV 80.1(L) 81.3 - 96.4 fL [facility] Comment:Testing performed by : [facility], [address] [place], [place] [phone] MCH 25.1(L) 27.1 - 33.3 pg [facility] Comment:Testing performed by : [facility], [address] [place], [place] [phone] MCHC 31.3(L) 32.3 - 35.7 g/dL [facility] Comment:Testing performed by : [facility], [address] [place], [place] [phone] RDW CV 16.3(H) 11.1 - 14.9 % [facility]EN [facility] Comment:Testing performed by : [facility], [address] [place], [place] [phone] NRBC abs 0.00 0.00 - 0.01 K/cumm [facility] Comment:Testing performed by : [facility], [address] [place], [place] [phone] Blood 10/29/2024 8:07 AM SCENE AND LIGHTING DESIGN LECTURER 10/29/2024 8:10 AM SCENE AND LIGHTING DESIGN LECTURER Amilcar Sarabia MD LAB BLOOD ORDERABLES Final R esult [facility]EN CERRATO [facility] [place] [address] * (ABNORMAL) eGFR (10/22/2024 8:20 AM SCENE AND LIGHTING DESIGN LECTURER) [facility] eGFR 35(L) >=60 mL/min/1. 73 m2 Comment: [...] last reviewed 2021. Blood 10/22/2024 8:20 AM SCENE AND LIGHTING DESIGN LECTURER 10/22/2024 8:30 AM SCENE AND LIGHTING DESIGN LECTURER Cas Taylor MD LAB BLOOD ORDERABLES Fin al Result BEN CERRATO [facility] [place] [address] * Differential, auto (10/22/2024 8:20 AM SCENE AND LIGHTING DESIGN LECTURER) [facility] Neutrophil abs 2.2 1.5 - 6.5 K/cumm Comment:Testing performed by : [facility], [address] [place] [phone] Lymphocyte abs 1.0 0.8 - 3.3 K/cumm [facility] Comment:Testing performed by : [facility], [address] [place] [phone] Monocyte abs 0.2 0.2 - 0.8 K/cumm [facility] Comment:Testing performed by : [facility], [address] [place] [phone] Eosinophil abs 0.1 0.0 - 0.5 K/cumm [facility] Comment:Testing performed by : [facility], [address] [place] [phone] Basophil abs 0.0 0.0 - 0.1 K/cumm [facility] Comment:Testing performed by : [facility], [address] [place] [phone] Neutrophil pct 62.3 % [facility] Comment: Interpretive Data Percent cell count reference ranges are not reported, since discordance with absolute values may lead to misinterpretation of CBC data. Current Interpretive Data was last revised on 2018. Testing performed by: [facility], [address] [place] [phone] Lymphocyte pct 29.1 % [facility] Comment: Interpretive Data Percent cell count reference ranges are not reported, since discordance with absolute values may lead to misinterpretation of CBC data. Current Interpretive Data was last revised on 2018. Testing performed by: [facility], [address] [place] [phone] Monocyte pct 5.7 % [facility] Comment: Interpretive Data Percent cell count reference ranges are not reported, since discordance with absolute values may lead to misinterpretation of CBC data. Current Interpretive Data was last revised on 2018. Testing performed by: [facility], [address] [place] [phone] Eosinophil pct 2.2 % [facility] Comment: Interpretive Data Percent cell count reference ranges are not reported, since discordance with absolute values may lead to misinterpretation of CBC data. Current Interpretive Data was last revised on 2018. Testing performed by: [facility], [address] [place] [phone] Basophil pct 0.7 % [facility] Comment: Interpretive Data Percent cell count reference ranges are not reported, since discordance with absolute values may lead to misinterpretation of CBC data. Current Interpretive Data was last revised on 2018. Testing performed by: [facility], [address] [place] [phone] Blood 10/22/2024 8:20 AM SCENE AND LIGHTING DESIGN LECTURER 10/22/2024 8:30 AM SCENE AND LIGHTING DESIGN LECTURER Amilcar Sarabia MD LAB BLOOD ORDERABLES Final R esult [facility] [place] [address] * (ABNORMAL) CBC with auto differential (10/22/2024 8:20 AM SCENE AND LIGHTING DESIGN LECTURER) WBC 3.5(L) 3.8 - 9.9 K/cumm Comment:Testing performed by : [facility], [address] [place] [address] Hgb 8.6(L) 13.0 - 17.5 g/dL [facility] Comment:Testing performed by : [facility], [address] [place] [address] Hct 27.6(L) 38.9 - 50.3 % CERCAROLINA BJ Comment:Testing performed by : [facility], [address] [place] [address] Plt 89(L) 150 - 400 K/cumm CERCAROLINA BJ Comment:Testing performed by : [facility], [address] [place] [address] MPV 7.8 6.8 - 10.4 fL CERNER BJ Comment:Testing performed by : [facility], [address] [place] [address] RBC 3.34(L) 4.30 - 5.80 M/cumm [facility]ERCAR[facility] BJ Comment:Testing performed by : [facility], [address] [place] [address] MCV 82.7 81.3 - 96.4 fL [facility]ER[facility] BJ Comment:Testing performed by : [facility], [address] [place] [phone] MCH 25.8(L) 27.1 - 33.3 pg [facility] Comment:Testing performed by : [facility], [address] [place], [place] [phone] MCHC 31.1(L) 32.3 - 35.7 g/dL [facility] Comment:Testing performed by : [facility], [address] [place], [place] [phone] RDW CV 17.2(H) 11.1 - 14.9 % [facility] Comment:Testing performed by : [facility], [address] [place] [phone] NRBC abs 0.00 0.00 - 0.01 K/cumm BEN [facility] Comment:Testing performed by : [facility], [address] [place] [phone] Blood 10/22/2024 8:20 AM SCENE AND LIGHTING DESIGN LECTURER 10/22/2024 8:30 AM SCENE AND LIGHTING DESIGN LECTURER Amilcar Sarabia MD LAB BLOOD ORDERABLES Final R esult [facility] [place] [address] * (ABNORMAL) Comprehensive metabolic panel (10/22/2024 8:20 AM SCENE AND LIGHTING DESIGN LECTURER) Sodium 146(H) 135 - 145 mmol/L Potassium, pl 4.3 3.3 - 4.9 mmol/L [facility] Chloride 113(H) 97 - 110 mmol/L [facility] CO2 28 22 - 32 mmol/L [facility] Anion gap 5 2 - 15 mmol/L [facility] BUN 31(H) 6 - 25 mg/dL [facility] Creatinine 1.94(H) 0.80 - 1.30 mg/dL [facility] Glucose 114 70 - 199 mg/dL [facility] Comment: Interpretive Data Fasting glucose >/= [...] 2022. Calcium 9.1 8.5 - 10.3 mg/dL [facility] Bilirubin, total 0.3 0.1 - 1.2 mg/dL [facility] Protein, pl 6.2(L) 6.5 - 8.5 g/dL [facility]ERN[facility] Albumin 3.7 3.5 - 5.0 g/dL [facility] Alk phos 116 40 - 130 Units/L [facility] ALT 75(H) 7 - 55 Units/L [facility] AST 86(H) 10 - 50 Units/L [facility] Blood 10/22/2024 8:20 AM SCENE AND LIGHTING DESIGN LECTURER 10/22/2024 8:30 AM SCENE AND LIGHTING DESIGN LECTURER Cas Taylor MD LAB BLOOD ORDERABLES Fin al Result [facility] [place] [address] * (ABNORMAL) eGFR (10/16/2024 4:56 PM SCENE AND LIGHTING DESIGN LECTURER) eGFR 29(L) >=60 mL/min/1. 73 m2 Comment: [...] last reviewed 2021. Blood 10/16/2024 4:56 PM SCENE AND LIGHTING DESIGN LECTURER 10/16/2024 5:44 PM SCENE AND LIGHTING DESIGN LECTURER Amilcar Sarabia MD LAB BLOOD ORDERABLES Final R esult Performing Organization Address [facility] Co de Phone Number [facility] [place] [address] * Uric acid (10/16/2024 4:56 PM SCENE AND LIGHTING DESIGN LECTURER) Pathologist [facility] Uric acid 5.9 3.0 - 8.0 mg/dL Blood 10/16/2024 4:56 PM SCENE AND LIGHTING DESIGN LECTURER 10/16/2024 5:44 PM SCENE AND LIGHTING DESIGN LECTURER Narrative [facility] - 10/16/2024 6:36 PM SCENE AND LIGHTING DESIGN LECTURER To be drawn at the end of obina infusion Amilcar Sarabia MD LAB BLOOD ORDERABLES Final R esult Performing Organization Address [facility] Co de Phone Number [facility] [place] [address] * (ABNORMAL) Basic metabolic panel (10/16/2024 4:56 PM SCENE AND LIGHTING DESIGN LECTURER) Sodium 143 135 - 145 mmol/L Potassium, pl 4.7 3.3 - 4.9 mmol/L [facility] Chloride 107 97 - 110 mmol/L [facility] CO2 24 22 - 32 mmol/L [facility] Anion gap 12 2 - 15 mmol/L [facility] BUN 41(H) 6 - 25 mg/dL [facility] Creatinine 2.30(H) 0.80 - 1.30 mg/dL [facility] Glucose 179 70 - 199 mg/dL [facility] Comment: Interpretive Data Fasting glucose >/= [...] Calcium 8.9 8.5 - 10.3 mg/dL [facility] Blood 10/16/2024 4:56 PM SCENE AND LIGHTING DESIGN LECTURER 10/16/2024 5:44 PM SCENE AND LIGHTING DESIGN LECTURER Narrative [facility] - 10/16/2024 6:36 PM SCENE AND LIGHTING DESIGN LECTURER To be drawn at the end of obina infusion us Amilcar Sarabia MD LAB BLOOD ORDERABLES Final R esult [facility] [place] [address] * (ABNORMAL) eGFR (10/16/2024 9:07 AM SCENE AND LIGHTING DESIGN LECTURER) eGFR 27(L) >=60 mL/min/1. 73 m2 Comment: [...] last reviewed 2021. Blood 10/16/2024 9:07 AM SCENE AND LIGHTING DESIGN LECTURER 10/16/2024 9:13 AM SCENE AND LIGHTING DESIGN LECTURER Amilcar Sarabia MD LAB BLOOD ORDERABLES Final R esult [facility] [place] [address] * (ABNORMAL) CBC without differential (10/16/2024 9:07 AM SCENE AND LIGHTING DESIGN LECTURER) WBC 9.5 3.8 - 9.9 K/cumm Comment:Testing performed by : [facility], [address] [place] [address] Hgb 8.9(L) 13.0 - 17.5 g/dL BEN CERRATO Comment:Testing performed by : [facility], [address] [place] [address] Hct 28.4(L) 38.9 - 50.3 % BEN CERRATO Comment:Testing performed by : [facility], [address] [place] [address] Plt 87(L) 150 - 400 K/cumm BEN CERRATO Comment:Testing performed by : [facility], [address] [place] [address] MPV 8.5 6.8 - 10.4 fL BEN CERRATO Comment:Testing performed by : [facility], [address] [place] [address] RBC 3.39(L) 4.30 - 5.80 M/cumm BEN CERRATO Comment:Testing performed by : [facility], [address] [place] [address] MCV 83.7 81.3 - 96.4 fL BEN CERRATO Comment:Testing performed by : [facility], [address] [place] [address] MCH 26.3(L) 27.1 - 33.3 pg CERCAROLINA CERRATO Comment:Testing performed by : [facility], [address] [place] [phone] MCHC 31.4(L) 32.3 - 35.7 g/dL [facility] Comment:Testing performed by : [facility], [facility] [place] [address] RDW CV 16.9(H) 11.1 - 14.9 % [facility] Comment:Testing performed by : [facility], [address] [place] [phone] Blood 10/16/2024 9:07 AM SCENE AND LIGHTING DESIGN LECTURER 10/16/2024 9:19 AM SCENE AND LIGHTING DESIGN LECTURER Cas Taylor MD LAB BLOOD ORDERABLES Fin al Result Performing Organization Address City/[facility] Co de Phone Number [facility] [place] [address] * Uric acid (10/16/2024 9:07 AM SCENE AND LIGHTING DESIGN LECTURER) Uric acid 6.1 3.0 - 8.0 mg/dL Blood 10/16/2024 9:07 AM SCENE AND LIGHTING DESIGN LECTURER 10/16/2024 9:13 AM SCENE AND LIGHTING DESIGN LECTURER Amilcar Sarabia MD LAB BLOOD ORDERABLES Final R esult Performing Organization Address [facility] Co de Phone Number [facility] [place] [address] * Phosphorus (10/16/2024 9:07 AM SCENE AND LIGHTING DESIGN LECTURER) Phosphorus, pl 4.1 2.3 - 4.5 mg/dL Blood 10/16/2024 9:07 AM SCENE AND LIGHTING DESIGN LECTURER 10/16/2024 9:13 AM SCENE AND LIGHTING DESIGN LECTURER Amilcar Sarabia MD LAB BLOOD ORDERABLES Final R esult Performing Organization Address City/[facility] Co de Phone Number [facility] [place] [address] * (ABNORMAL) Lactate dehydrogenase (LD) (10/16/2024 9:07 AM SCENE AND LIGHTING DESIGN LECTURER) Lactate dehydrogenase (LDH) 257(H) 100 - 250 Units/L Blood 10/16/2024 9:07 AM SCENE AND LIGHTING DESIGN LECTURER 10/16/2024 9:13 AM SCENE AND LIGHTING DESIGN LECTURER Amilcar Sarabia MD LAB BLOOD ORDERABLES Final R esult [facility] [place] [address] * (ABNORMAL) Basic metabolic panel (10/16/2024 9:07 AM SCENE AND LIGHTING DESIGN LECTURER) Pathologist [facility] Sodium 145 135 - 145 mmol/L Potassium, pl 4.6 3.3 - 4.9 mmol/L [facility] Chloride 108 97 - 110 mmol/L [facility] CO2 27 22 - 32 mmol/L [facility] Anion gap 10 2 - 15 mmol/L [facility] BUN 38(H) 6 - 25 mg/dL [facility] Creatinine 2.38(H) 0.80 - 1.30 mg/dL [facility] Glucose 125 70 - 199 mg/dL [facility] Comment: Interpretive Data Fasting glucose >/= [...] Calcium 9.2 8.5 - 10.3 mg/dL [facility] Blood 10/16/2024 9:07 AM SCENE AND LIGHTING DESIGN LECTURER 10/16/2024 9:13 AM SCENE AND LIGHTING DESIGN LECTURER Amilcar Sarabia MD LAB BLOOD ORDERABLES Final R esult Performing Organization Address [facility] Co de Phone Number BEN [facility] [address] * Hepatitis C antibody Blood (10/15/2024 9:53 AM SCENE AND LIGHTING DESIGN LECTURER) Hep C Ab Nonreactive Nonreactive Comment:Antibodies to HCV no t detected. Does NOT exclude the possibility of recent exposure to HCV. Current interpretive data was last revised on 22 Blood 10/15/2024 9:53 AM SCENE AND LIGHTING DESIGN LECTURER 10/15/2024 10:33 AM SCENE AND LIGHTING DESIGN LECTURER us Amilcar Sarabia MD LAB MICROBIOLOGY - GENERAL O RDERABLES Final Result Performing Organization Address [facility] Co de Phone Number BEN [facility] [address] * Hepatitis B core antibody, total Blood (10/15/2024 9:53 AM SCENE AND LIGHTING DESIGN LECTURER) Hep B core IgG/IgM Nonreactive Nonreactive Blood 10/15/2024 9:53 AM SCENE AND LIGHTING DESIGN LECTURER 10/15/2024 10:33 AM SCENE AND LIGHTING DESIGN LECTURER us Amilcar Sarabia MD LAB MICROBIOLOGY - GENERAL O RDERABLES Final Result Performing Organization Address [facility] Co de Phone Number BEN [facility] [place] [address] * Hepatitis B surface antibody (immune status) Blood (10/15/2024 9:53 AM SCENE AND LIGHTING DESIGN LECTURER) HBsAb (immune status) Nonreactive Comment:This result is consi stent with a lack of immunity to Hepatitis B Virus when used in the setting of routine screening. Current interpretative data was last revised on 22 Blood 10/15/2024 9:53 AM SCENE AND LIGHTING DESIGN LECTURER 10/15/2024 10:33 AM SCENE AND LIGHTING DESIGN LECTURER Amilcar Sarabia MD LAB MICROBIOLOGY - GENERAL O RDERABLES Final Result [facility] [place] [address] * Hepatitis B Surface Antigen Blood (10/15/2024 9:53 AM SCENE AND LIGHTING DESIGN LECTURER) HepBsAg Nonreactive Nonreactive Blood 10/15/2024 9:53 AM SCENE AND LIGHTING DESIGN LECTURER 10/15/2024 10:33 AM SCENE AND LIGHTING DESIGN LECTURER Amilcar Sarabia MD LAB MICROBIOLOGY - GENERAL O RDERABLES Final Result Performing Organization Address [facility] Co de Phone Number [facility] [place] [address] * (ABNORMAL) eGFR (10/15/2024 7:37 AM SCENE AND LIGHTING DESIGN LECTURER) eGFR 38(L) >=60 mL/min/1. 73 m2 Comment: [...] last reviewed 2021. Blood 10/15/2024 7:37 AM SCENE AND LIGHTING DESIGN LECTURER 10/15/2024 7:43 AM SCENE AND LIGHTING DESIGN LECTURER Amilcar Sarabia MD LAB BLOOD ORDERABLES Final R esult [facility] [place] [address] * (ABNORMAL) CBC with auto differential (10/15/2024 7:37 AM SCENE AND LIGHTING DESIGN LECTURER) WBC 37.4(H) 3.8 - 9.9 K/cumm Comment:Testing performed by : [facility], [address] [place] [address] Hgb 9.1(L) 13.0 - 17.5 g/dL CERNER BJ Comment:Testing performed by : [facility], [address] [place] [address] Hct 28.9(L) 38.9 - 50.3 % CERNER BJ Comment:Testing performed by : [facility], [address] [place] [address] Plt 105(L) 150 - 400 K/cumm CERNER BJ Comment:Testing performed by : [facility], [address] [place] [address] MPV 8.3 6.8 - 10.4 fL CERNER BJ Comment:Testing performed by : [facility], [address] [place] [address] RBC 3.42(L) 4.30 - 5.80 M/cumm CERNER BJ Comment:Testing performed by : [facility], [address] [place] [address] MCV 84.3 81.3 - 96.4 fL CERNER BJ Comment:Testing performed by : [facility], [address] [place] [address] MCH 26.5(L) 27.1 - 33.3 pg CERNER BJ Comment:Testing performed by : [facility], [address] [place] [address] MCHC 31.5(L) 32.3 - 35.7 g/dL CERNER BJ Comment:Testing performed by : [facility], [address] [place] [address] RDW CV 17.1(H) 11.1 - 14.9 % BEN CERRATO Comment:Testing performed by : [facility], [address] [place] [address] NRBC abs 0.00 0.00 - 0.01 K/cumm BEN CERRATO Comment:Testing performed by : [facility], [address] [place] [address] Blood 10/15/2024 7:37 AM SCENE AND LIGHTING DESIGN LECTURER 10/15/2024 7:41 AM SCENE AND LIGHTING DESIGN LECTURER Amilcar Sarabia MD LAB BLOOD ORDERABLES Edited Result - Final BEN CERRATO [facility] [place] [address] * (ABNORMAL) Manual Differential (10/15/2024 7:37 AM SCENE AND LIGHTING DESIGN LECTURER) Cells Counted 200 Comment:Testing performed by : [facility], [address] [place] [address] Neutrophil abs 3.7 1.5 - 6.5 K/cumm BEN CERRATO Comment:Testing performed by : [facility], [address] [place] [address] Lymphocyte abs 33.7(H) 0.8 - 3.3 K/cumm BEN CERRATO Comment:Testing performed by : [facility], [address] [place] [address] Monocyte abs 0.4 0.2 - 0.8 K/cumm BEN BJ Comment:Testing performed by : [facility], [address] [place] [address] Eosinophil abs 0.0 0.0 - 0.5 K/cumm [facility]ER[facility] BJ Comment:Testing performed by : [facility], [address] [place] [address] Basophil abs 0.0 0.0 - 0.1 K/cumm [facility]ER[facility] BJ Comment:Testing performed by : [facility], [address] [place] [phone] Neutrophil pct 10.0 % CERNER BJ Comment: Interpretive Data Percent cell count reference ranges are not reported, since discordance with absolute values may lead to misinterpretation of CBC data. Current Interpretive Data was last revised on 2018. Testing performed by: [facility], [address] [place] [phone] Lymphocyte pct 90.0 % CERNER BJ Comment: Interpretive Data Percent cell count reference ranges are not reported, since discordance with absolute values may lead to misinterpretation of CBC data. Current Interpretive Data was last revised on 2018. Testing performed by: [facility], [address] [place] [phone] Monocyte pct 1.0 % CERNER BJ Comment: Interpretive Data Percent cell count reference ranges are not reported, since discordance with absolute values may lead to misinterpretation of CBC data. Current Interpretive Data was last revised on 2018. Testing performed by: [facility], [address] [place] [phone] Eosinophil pct 0.0 % CERNER BJ Comment: Interpretive Data Percent cell count reference ranges are not reported, since discordance with absolute values may lead to misinterpretation of CBC data. Current Interpretive Data was last revised on 2018. Testing performed by: [facility], [address] [place] [phone] Basophil pct 0.0 % CERNER BJ Comment: Interpretive Data Percent cell count reference ranges are not reported, since discordance with absolute values may lead to misinterpretation of CBC data. Current Interpretive Data was last revised on 2018. Testing performed by: [facility], [address] [place] [phone] Microcytes 1+(A) CERCAROLINA BJ Comment:Testing performed by : [facility], [address] [place] [phone] Elliptocytes 1+(A) CERNER BJ Comment:Testing performed by : [facility], [address] [place] [address] [place] [phone] Platelet estimate Decreased (A) [facility] Comment:Testing performed by : [facility], [facility] [place] [address] Blood 10/15/2024 7:37 AM SCENE AND LIGHTING DESIGN LECTURER 10/15/2024 7:41 AM SCENE AND LIGHTING DESIGN LECTURER Amilcar Sarabia MD LAB BLOOD ORDERABLES Final R esult Performing Organization Address City/[facility] Co de Phone Number [facility] [place] [address] * Uric acid (10/15/2024 7:37 AM SCENE AND LIGHTING DESIGN LECTURER) Uric acid 5.3 3.0 - 8.0 mg/dL Blood 10/15/2024 7:37 AM SCENE AND LIGHTING DESIGN LECTURER 10/15/2024 7:43 AM SCENE AND LIGHTING DESIGN LECTURER Amilcar Sarabia MD LAB BLOOD ORDERABLES Final R esult Performing Organization Address [facility] [place] [address] * Phosphorus (10/15/2024 7:37 AM SCENE AND LIGHTING DESIGN LECTURER) Phosphorus, pl 3.7 2.3 - 4.5 mg/dL Blood 10/15/2024 7:37 AM SCENE AND LIGHTING DESIGN LECTURER 10/15/2024 7:43 AM SCENE AND LIGHTING DESIGN LECTURER Amilcar Sarabia MD LAB BLOOD ORDERABLES Final R esult Performing Organization Address [facility] de Phone Number [facility] [place] [address] * Lactate dehydrogenase (LD) (10/15/2024 7:37 AM SCENE AND LIGHTING DESIGN LECTURER) Lactate dehydrogenase (LDH) 170 100 - 250 Units/L Blood 10/15/2024 7:37 AM SCENE AND LIGHTING DESIGN LECTURER 10/15/2024 7:43 AM SCENE AND LIGHTING DESIGN LECTURER Amilcar Sarabia MD LAB BLOOD ORDERABLES Final R esult [facility] [place] [address] * (ABNORMAL) Comprehensive metabolic panel (10/15/2024 7:37 AM SCENE AND LIGHTING DESIGN LECTURER) Sodium 146(H) 135 - 145 mmol/L Potassium, pl 4.1 3.3 - 4.9 mmol/L [facility] Chloride 111(H) 97 - 110 mmol/L CERNER [facility] CO2 28 22 - 32 mmol/L [facility] Anion gap 7 2 - 15 mmol/L [facility] BUN 28(H) 6 - 25 mg/dL [facility] Creatinine 1.82(H) 0.80 - 1.30 mg/dL [facility] Glucose 121 70 - 199 mg/dL [facility] Comment: Interpretive Data Fasting glucose >/= [...] Calcium 9.4 8.5 - 10.3 mg/dL CERNER [facility] Bilirubin, total 0.3 0.1 - 1.2 mg/dL [facility] Protein, pl 6.7 6.5 - 8.5 g/dL [facility] Albumin 4.0 3.5 - 5.0 g/dL [facility] Alk phos 93 40 - 130 Units/L [facility] ALT 20 7 - 55 Units/L [facility] AST 31 10 - 50 Units/L [facility] Blood 10/15/2024 7:37 AM SCENE AND LIGHTING DESIGN LECTURER 10/15/2024 7:43 AM SCENE AND LIGHTING DESIGN LECTURER Amilcar Sarabia MD LAB BLOOD ORDERABLES Final R esult [facility] [place] [address] from Last 3 Months Insurance MEDICARE [facility] [place] [address] [employer] Advance Directives For more information, please contact: [phone] * Full Code (Latest Code Status on File) Date Activated Date Inactivated Comments 03/14/2024 2:50 PM 03/22/2024 5:48 PM * Full Code Date Activated Date Inactivated Comments 03/11/2024 10:34 PM 03/14/2024 2:49 PM Care Teams Wood Router Hand Relationship Specialty Start Date End Date Kyle Hendricks MD PCP - General 04/06/17 Amilcar Sarabia MD Medical Oncologist/Dial Printer Medical Oncology 05/24/22 Cas Taylor MD [id number] [place] [address] Consulting Physician Cardiothoracic Surgery 03/22/24
--- OUTSIDE RECORDS SUMMARY | 2025-01-09 03:00 | XMS_ITS | Clinical Summary ---
Author Organization [facility] Address [address] [place] [address] Phone Care Team Providers Care Brick Pointer Name Role Phone Kyle Hendricks MD Primary Care Provider [phone] Williams Raymond MD Unavailable Allergies Active Allergy [...] Documents on File Type Date Recorded Patient Respiratory Care Specialist Expl anation Other Advance Directive 04/25/2022 3:30 PM UROLOGY REFERRAL [facility] Care Teams Brick Pointer Relationship Specialty Start Date End Date Kyle Hendricks MD [address] [place] [address] PCP - General Internal Medicine 04/25/22 Williams Raymond MD [address] [address] Consulting Physician Urology 06/01/22
[2025-01-09 03:04] LABS: Alanine Aminotransferase 41 U/L (6-50); Albumin Level 4.8 g/dL (3.5-5.1); Alkaline Phosphatase 122 U/L (38-126); Anion Gap 12 mmol/L (4-12); Aspartate Amino Transferase 33 U/L (17-59); Bilirubin,Total 1.4 mg/dL (0.2-1.3); Blood Urea Nitrogen 36 mg/dL (9-20); Calcium 9.6 mg/dL (8.4-10.2); Carbon Dioxide 27 mmol/L (22-30); Chloride 102 mmol/L (98-107); Estimated CRCL calculation 38 ml/min; Estimated Glomerular Filt Rate 39; Glucose 114 mg/dL (65-110); Potassium 3.9 mmol/L (3.4-5.0); Sodium 141 mmol/L (137-145)
[2025-01-09] MEDS: LACTATED RINGERS 1,000 ML 999 ML IV CONT (03:06)
[2025-01-09] MEDS: HYDROmorphone HCL INJ (*CRX) 1 MG/ML SYR 0.5 MG IV PUSH (03:07)
[2025-01-09 03:09] LABS: Anisocytosis 1+; Band Neutrophils Percent 8 % (0-6); Hypochromasia 1+; Lymphocytes Absolute Manual 1.54 K/mm3 (1.1-4.5); Monocytes Absolute Manual 0.66 K/mm3 (0.1-0.90); Monocytes Percent Manual 12 % (3-9); Neutrophils Percent Manual 52 % (46-73); Ovalocytes 1+; Platelet Estimate Decreased (Adequate); Schistocytes None Seen; Total Cells Counted 50
[2025-01-09 03:10] LABS: Atypical Lymphocytes Present
[2025-01-09 03:18] LABS: Uric Acid 5.9 mg/dL (3.5-8.5)
[2025-01-09 04:30] VITALS: BP 162/78; PULSE 65; RESP 16; O2SAT 96
== END 2025-01-09 05:20 | disposition home or self-care (01) ==
PROVIDERS: Emergency Provider Student in an Organized Health Care Education/Training Program; PCP Internal Medicine
DX: N20.0 Calculus of kidney (principal); C91.10 Chronic lymphocytic leukemia of B-cell type not having achieved remission; I48.91 Unspecified atrial fibrillation; I25.10 Atherosclerotic heart disease of native coronary artery without angina pectoris; I10 Essential (primary) hypertension; E78.5 Hyperlipidemia, unspecified; N40.0 Benign prostatic hyperplasia without lower urinary tract symptoms; M19.90 Unspecified osteoarthritis, unspecified site; K21.9 Gastro-esophageal reflux disease without esophagitis; Z95.1 Presence of aortocoronary bypass graft; Z96.612 Presence of left artificial shoulder joint; Z96.611 Presence of right artificial shoulder joint; Z86.718 Personal history of other venous thrombosis and embolism; Z87.442 Personal history of urinary calculi; Z87.891 Personal history of nicotine dependence; Z79.633 Long term (current) use of mitotic inhibitor; Z79.01 Long term (current) use of anticoagulants; Z79.82 Long term (current) use of aspirin; Z79.899 Other long term (current) drug therapy; K80.20 Calculus of gallbladder without cholecystitis without obstruction
CPT/HCPCS: 36415; 74176; 80053; 81001; 84550; 85025; 85055; 87086; 96361; 96374; 99284; J1171; J7120

== ENCOUNTER 2025-04-16 08:45 | Outpatient (RCR) | payer MEDICARE, OTHER, SELFPAY ==
--- NOTE | 2025-03-25 09:23 | PTOPEVAL1 ---
Assessment and note entered by JT File, PT Evaluation Information Assessment Status Evaluation Diagnosis LE weakness and deconditioning ICD-10 Condition Codes (PT) Weakness R53.1 Onset 03/24/25 Subjective Information Pt reports he had open heart quadruple bypass this month (March 2025) and had his prostate removed. Pt reports he has Chronic lymphocytic leukemia and takes pills for it. Pt reports that his lower body strength is bad. Pt reports that he has done cardiac rehab prior to coming here. Pt reports that his knees collapsed yesterday and he fell on his butt. Pt reports that he wants to be able to walk longer distances and build up his strength. Reported Pain Level Pain Score 0: Self Report Assessment PT Clinical Summary Wiliam is a 80 y/o male who presents to the clinic with LE weakness and deconditioning following a quadruple bypass. Pt has deficits in balance, posture, LE strength, and endurance. Wiliam has difficulty walking long distances and has had a recent fall. Pt would benefit from skilled PT to work on deficits to improve his quality of life and return to his prior level of function. Skilled PT is also needed to safely work on balance and endurance to decrease the pts fall risk. Plan of Care Interventions Gait Training,Neuro Re-education,Patient/Caregiver Education,Therapeutic Activities,Therapeutic Exercise PT Services Indicated Yes Treatment Frequency and 2x a week for 10 visits Duration These treatments will address the objective and functional deficits as defined above. The patient will be advanced safely and appropriately in order for the patient to progress towards his/her prior level of function. Additional exercises will be introduced and as well as a comprehensive home exercise program upon discharge, if needed, ?to ensure carryover of functional gains achieved in the clinic. This treatment plan has been reviewed and agreement upon by the patient.
--- NOTE | 2025-05-20 09:22 | OPREHPOC ---
Outpatient Therapy Plan of Care This is a Multidisciplinary Plan of Care that may contain components documented by all disciplines (PT, OT, and ST.) PT Problem 1 PT Problem #1 Knowledge Deficit PT Goal 1 Goal / Goal Update pt to be independent in HEP. Target Visit 5 Progress Met PT Problem 2 PT Problem #2 Impaired Balance PT Goal 1 Goal / Goal Update Pt to score 25 or higher on the Tinetti to decrease his fall risk -met pt to be able to do 5 x STS in 18s -met Pt to be able to do the TUG in 8s or less -not met (10 sec) Target Visit 10 Progress Partially Met PT Problem 3 PT Problem #3 Impaired Strength PT Goal 1 Goal / Goal Update pt to have 5/5 LE strength bilat Target Visit 10 Progress Met PT Problem 4 PT Problem #4 Impaired Functional Mobility PT Goal 1 Goal / Goal Update Pt to score 20% or less on LEFS -met Pt to report no falls within the last 2 weeks - met Target Visit 10 Progress Met
--- NOTE | 2025-05-20 09:22 | PTOPDC ---
Assessment and note entered by Ann Baldwin, PT Evaluation Information Assessment Status Discharge Diagnosis LE weakness and deconditioning ICD-10 Condition Codes (PT) Weakness R53.1 Onset 03/24/25 Subjective Information Wiliam Perez reports he is feeling stronger and has had no falls. He is experiencing mild low back pain but reports this is chronic and due to a misshaped vertebrae. He feels he is ready to be discharged from skilled PT. Reported Pain Level Pain Score 2: Self Report Assessment PT Clinical Summary Wiliam has completed 14 skilled PT visits for LE weakness and deconditioning following a quadruple bypass. He demonstrates improved LE strength, improved endurance, and improved balance. He denies falls and demonstrate a low fall risk per standard balance tests. He has met 6 out of 7 PT goals and nearly met the last one. He will be discharged to an independent HEP. Plan of Care PT Services Indicated No
== END 2025-06-23 23:59 | disposition home or self-care (01) ==
LOC: CHSPT 08:45
PROVIDERS: PCP Internal Medicine; Visit Provider Internal Medicine
DX: R53.1 Weakness (principal)
CPT/HCPCS: 97110; 97112; 97161; 97530; 97750